=== PATIENT | female | born 1930 ===

== ENCOUNTER 2017-08-19 21:06 | Inpatient (IN) | payer MEDICARE, MEDICAID ==
[2017-08-19 21:06] VITALS: BMI 37.0
--- NOTE | 2017-08-19 22:26 | ED PDOC ---
HPI: Chest Pain Time Seen by Provider: 08/19/17 21:19 Chief Complaint (Nursing): Chest Pain Chief Complaint (Provider): chest pain History Per: Family (niece) History/Exam Limitations: clinical condition (dementia) Onset/Duration Of Symptoms: Days (x4), Intermittent Episodes Current Symptoms Are (Timing): Still Present Additional Complaint(s): 86 year old male with previous medical history of dementia, who presents to the emergency department with niece for an evaluation of pleural effusion seen on CXR by PCP on 08/15/17. Niece stated that patient has been having chest pain and more shortness of breath for 4 days. She also reported that patient had previous pleural effusion in April 2017 in which a thoracostomy was performed. PMD: Martinez Hameed MD Past Medical History Reviewed: Historical Data, Nursing Documentation, Vital Signs Vital Signs: Last Vital Signs Temp 97.7 F 08/24/17 08:17 Pulse 64 08/24/17 08:18 Resp 20 08/24/17 08:17 BP 144/72 08/24/17 08:18 Pulse Ox 98 08/24/17 08:17 - Medical History PMH: Anemia, Arthritis, Asthma, Bronchitis, COPD, Dementia, Depression, Diverticulitis, HTN, Hypercholesterolemia, Osteoporosis, Pneumonia Denies: HIV, Chronic Kidney Disease - Family History Family History: States: Unknown Family Hx - Home Medications Home Medications: Ambulatory Orders Medication Instructions Recorded Losartan Potassium [Cozaar] 100 mg PO DAILY 08/26/16 Memantine HCl [Namenda Xr] 28 mg PO DAILY 08/26/16 Metoprolol Succinate 50 mg PO DAILY 08/26/16 Omeprazole 20 mg PO DAILY 08/26/16 Paroxetine HCl [Paxil] 20 mg PO DAILY 08/26/16 Pravastatin Sodium [Pravachol] 20 mg PO HS 08/26/16 Albuterol/Ipratropium [Duoneb 3 3 ml IH Q4 08/19/17 MG/3 Ml-0.5 MG/3 Ml 3 Ml] Clotrimazole 1% Cream [Lotrimin 1%] 30 mg TOP DAILY 08/19/17 Fluticasone/Salmeterol [Advair 1 puff PO DAILY 08/19/17 250-50 Diskus] Montelukast Sodium [Singulair] 10 mg PO DAILY 08/19/17 Bimatoprost [Lumigan] 1 drop BOTHEYES DAILY 08/20/17 Lactulose [Lactulose] 30 ml PO Q12 08/20/17 Silver Sulfadiazine [Silvadene] 20 mg TOP BID 08/20/17 - Allergies Allergies/Adverse Reactions: Allergies Allergy/AdvReac Type Severity Reaction Status Date / Time No Known Allergies Allergy Verified 04/03/15 20:49 Review of Systems Review Of Systems: ROS cannot be obtained secondary to pt's inabilty to answer questions. (dementia) Cardiovascular: Positive for: Chest Pain Respiratory: Positive for: Shortness of Breath (per niece) Physical Exam - Reviewed Nursing Documentation Reviewed: Yes Vital Signs Reviewed: Yes - Physical Exam Appears: Positive for: Well, Non-toxic, No Acute Distress Head Exam: Positive for: ATRAUMATIC, NORMAL INSPECTION, NORMOCEPHALIC Eye Exam: Positive for: Normal appearance, EOMI, PERRL. Negative for: Nystagmus Cardiovascular/Chest: Positive for: Murmur. Negative for: Regular Rate, Rhythm Respiratory: Positive for: Decreased Breath Sounds. Negative for: Normal Breath Sounds, Respiratory Distress Neurologic/Psych: Positive for: Alert, Oriented - Laboratory Results Result Diagrams: 08/21/17 04:30 08/19/17 22:29 - ECG O2 Sat by Pulse Oximetry: 99 (RA) Pulse Ox Interpretation: Normal - Radiology X-Ray: Read By Radiologist (Accession No. : [id number]) Medical Decision Making Medical Decision Making: Initial Impression: Chest pain; pleural effusion Initial Plan: * EKG * CMP * Troponin I * CBC * PTT * PT * CXR * Urinalysis Scribe Attestation: Documented by Bruna Carlisle, acting as a scribe for Tiara Washington MD. Provider Scribe Attestation: All medical record entries made by the Scribe were at my direction and personally dictated by me. I have reviewed the chart and agree that the record accurately reflects my personal performance of the history, physical exam, medical decision making, and the department course for this patient. I have also personally directed, reviewed, and agree with the discharge instructions and disposition. Disposition - Clinical Impression Clinical Impression: Chest pain, Pleural effusion - Patient ED Disposition Is Patient to be Admitted: Yes - Disposition Disposition Time: 22:58 Condition: STABLE - Pt Status Changed To: Hospital Disposition Of: Inpatient - Admit Certification Admit to Inpatient:: After my assessment, the patient will require hospitalization for at least two midnights. This is because of the severity of symptoms shown, intensity of services needed, and/or the medical risk in this patient being treated as an outpatient. - POA Present On Arrival: None
[2017-08-19 22:32] LABS: BASO % 0.5 % (0.0-2.0); EOS # 0.2 K/uL (0.0-0.7); EOS % 2.6 % (0.0-4.0); HEMOGLOBIN 10.7 g/dL (12.0-16.0); LYMPH # 1.5 K/uL (1.0-4.3); LYMPH % 18.6 % (20.0-40.0); MEAN CELL VOLUME 80.7 fl (81.0-99.0); MEAN CORPUSCULAR HEMOGLOBIN 25.2 pg (27.0-31.0); MEAN CORPUSCULAR HGB CONC 31.2 g/dL (33.0-37.0); MEAN PLATELET VOLUME 8.5 fl (7.2-11.7); MONO # 0.7 K/uL (0.0-0.8); MONO % 8.5 % (0.0-10.0); NEUT # 5.4 K/uL (1.8-7.0); NEUT % 69.8 % (50.0-75.0); RBC 4.26 Mil/uL (3.80-5.20); RED CELL DISTRIBUTION WIDTH 15.4 % (11.5-14.5); WHITE BLOOD COUNT 7.8 K/uL (4.8-10.8)
[2017-08-19 22:42] LABS: INR 1.1 (0.9-1.2); PARTIAL THROMBOPLASTIN TIME 29.7 Seconds (25.6-37.1); PROTHROMBIN TIME 12.3 Seconds (9.8-13.1)
[2017-08-19 22:44] LABS: ALB/GLOB RATIO 1.2 (1.0-2.1); ALBUMIN 3.5 g/dL (3.5-5.0); ALT/SGPT 31 U/L (9-52); AST/SGOT 27 U/L (14-36); BLOOD UREA NITROGEN 19 mg/dl (7-17); CALCIUM 8.7 mg/dL (8.4-10.2); GFR AFRICAN-AMERICAN > 60; GFR NON-AFRICAN AMERICAN > 60
[2017-08-19 23:11] LABS: SQUAMOUS EPITHIAL < 1 /hpf (0-5); URINE BACTERIA RARE (<OCC); URINE BILIRUBIN NEGATIVE (NEGATIVE); URINE BLOOD NEGATIVE (NEGATIVE); URINE CLARITY CLOUDY (Clear); URINE COLOR BLUE (YELLOW); URINE GLUCOSE (UA) NEG (Normal); URINE LEUKOCYTE ESTERASE TRACE Leu/uL (Negative); URINE NITRATE NEGATIVE (NEGATIVE); URINE PROTEIN NEGATIVE (NEGATIVE); URINE UROBILINOGEN 0.2-1.0 mg/dL (0.2-1.0)
[2017-08-20] MEDS ORDERED: Albuterol-Ipratrop 3 mg / 0.5 (3 ml) UD IH PRN (01:00)
[2017-08-20 02:21] LABS: ABG ALLEN TEST YES; ARTERIAL BLOOD GAS HCO3 30.8 mmol/L (21-28); ARTERIAL BLOOD GAS HEMOGLOBIN 10.6 g/dL (11.7-17.4); ARTERIAL BLOOD GAS O2 CAPACITY 14.4 mL/dL (16-24); ARTERIAL BLOOD GAS O2 CONTENT 13.7 ML/dL (15-23); ARTERIAL BLOOD GAS O2 SAT 94.9 % (95-98); ARTERIAL BLOOD GAS PCO2 50 mm/Hg (35-45); ARTERIAL BLOOD GAS PH 7.43 (7.35-7.45); ARTERIAL BLOOD GAS PO2 58 mm/Hg (80-100); ARTERIAL BLOOD GAS TCO2 34.7 mmol/L (22-28)
--- NOTE | 2017-08-20 05:54 | RAD ---
HISTORY: Pleural effusion COMPARISON: 08/15/2017 FINDINGS: LUNGS: Stable consolidative changes right lower lobe PLEURA: Stable right pleural effusion CARDIOVASCULAR: Normal. OSSEOUS STRUCTURES: No significant abnormalities. VISUALIZED UPPER ABDOMEN: Normal. OTHER FINDINGS: None. IMPRESSION: No significant interval change compared to the prior examination(s). Stable partially loculated right pleural effusion and adjacent underlying consolidative change right lower lobe.
[2017-08-20] MEDS ORDERED: Patient's Own Med (Memantine Hcl [Namenda Xr] 28 MG) PO SCH (09:00)
[2017-08-20] MEDS ORDERED: Patient's Own Med (Bimatoprost [Lumigan] 1 DROP) BOTHEYES SCH (09:00)
--- NOTE | 2017-08-20 09:24 | CP.PCM.HP ---
<America Farah - Last Filed: 08/21/17 15:47> History of Present Illness - History of Present Illness History of Present Illness: History taken from ER notes, patient is a poor historian, patient has h/o dementia. This is a 86 year old female with previous medical history of dementia, HTN, HLD , OA, as per ER doctor's note patient presented to the emergency department with niece for an evaluation of pleural effusion seen on CXR by PCP on . Niece stated that patient has been having chest pain and more shortness of breath for 4 days. She also reported that patient had previous pleural effusion in April 2017 in which a "thoracostomy" was performed. PMD: Martinez Hameed MD Present on Admission - Present on Admission Any Indicators Present on Admission: No History of DVT/PE: No History of Uncontrolled Diabetes: No Urinary Catheter: No Decubitus Ulcer Present: No Review of Systems - Review of Systems All systems: reviewed and no additional remarkable complaints except (as per HPI ) Past Patient History - Past Medical History & Family History Past Medical History?: Yes - Past Social History Smoking Status: Never Smoked - CARDIAC Hx Hypercholesterolemia: Yes Hx Hypertension: Yes - PULMONARY Hx Asthma: Yes Hx Bronchitis: Yes Hx Chronic Obstructive Pulmonary Disease (COPD): Yes Hx Pneumonia: Yes - NEUROLOGICAL Hx Dementia: Yes - HEENT Hx HEENT Problems: No - RENAL Hx Chronic Kidney Disease: No - ENDOCRINE/METABOLIC Hx Endocrine Disorders: No - HEMATOLOGICAL/ONCOLOGICAL Hx Anemia: Yes Hx Human Immunodeficiency Virus (HIV): No - INTEGUMENTARY Hx Dermatological Problems: No - MUSCULOSKELETAL/RHEUMATOLOGICAL Hx Arthritis: Yes Hx Osteoporosis: Yes - GASTROINTESTINAL Hx Diverticulitis: Yes - GENITOURINARY/GYNECOLOGICAL Hx Genitourinary Disorders: No - PSYCHIATRIC Hx Depression: Yes - SURGICAL HISTORY Hx Surgeries: Yes Hx Hysterectomy: Yes Other/Comment: Kidney Surgery, Left Hip Replacement, left knee surgery - ANESTHESIA Hx Anesthesia: Yes Hx Anesthesia Reactions: No Hx Malignant Hyperthermia: No Meds Allergies/Adverse Reactions: Allergies Allergy/AdvReac Type Severity Reaction Status Date / Time No Known Allergies Allergy Verified 04/03/15 20:49 Physical Exam - Constitutional Appears: Non-toxic, No Acute Distress - ENT Exam ENT Exam: Mucous Membranes Dry - Respiratory Exam Respiratory Exam: NORMAL BREATHING PATTERN - Cardiovascular Exam Cardiovascular Exam: REGULAR RHYTHM, RRR, +S1, +S2 - GI/Abdominal Exam GI & Abdominal Exam: Normal Bowel Sounds, Soft. absent: Distended, Firm, Guarding, Tenderness - Extremities Exam Extremities exam: Positive for: normal inspection. Negative for: calf tenderness, pedal edema - Neurological Exam Neurological exam: Alert Additional comments: Oriented x 2 , in person and place - Skin Skin Exam: Dry, Intact, Pallor Results - Vital Signs Recent Vital Signs: Last Vital Signs Temp 97.6 F 08/20/17 07:30 Pulse 62 08/20/17 07:30 Resp 14 08/20/17 07:30 BP 158/62 H 08/20/17 07:30 Pulse Ox 96 08/20/17 07:30 - Labs Result Diagrams: 08/21/17 04:30 08/19/17 22:29 Labs: Laboratory Results - last 24 hr 08/19/17 08/19/17 08/19/17 22:29 22:29 22:29 WBC 7.8 RBC 4.26 Hgb 10.7 L Hct 34.4 MCV 80.7 L MCH 25.2 L MCHC 31.2 L RDW 15.4 H Plt Count 172 MPV 8.5 Neut % (Auto) 69.8 Lymph % (Auto) 18.6 L [place] % (Auto) 8.5 Eos % (Auto) 2.6 Baso % (Auto) 0.5 Neut # 5.4 Lymph # 1.5 [place] # 0.7 Eos # 0.2 Baso # 0.0 PT 12.3 INR 1.1 APTT 29.7 pCO2 pO2 HCO3 ABG pH ABG Total CO2 ABG O2 Saturation ABG O2 Content ABG Base Excess ABG Hemoglobin ABG Carboxyhemoglobin POC ABG HHb (Measured) ABG Methemoglobin ABG O2 Capacity Charbel Test A-a O2 Difference Hgb O2 Saturation FiO2 Sodium 139 Potassium 4.4 Chloride 102 Carbon Dioxide 30 Anion Gap 11 BUN 19 H Creatinine 0.7 Est GFR ( Amer) > 60 Est GFR (Non-Af Amer) > 60 Random Glucose 103 Calcium 8.7 Total Bilirubin 0.4 AST 27 ALT 31 Alkaline Phosphatase 80 Troponin I < 0.0120 Total Protein 6.6 Albumin 3.5 Globulin 3.1 Albumin/Globulin Ratio 1.2 Urine Color Urine Clarity Urine pH Ur Specific [place] Urine Protein Urine Glucose (UA) Urine Ketones Urine Blood Urine Nitrate Urine Bilirubin Urine Urobilinogen Ur Leukocyte Esterase Urine RBC (Auto) Urine Microscopic WBC Ur Squamous Epith Cells Urine Bacteria 08/19/17 08/20/17 08/20/17 23:00 02:01 07:30 WBC RBC Hgb Hct MCV MCH MCHC RDW Plt Count MPV Neut % (Auto) Lymph % (Auto) [place] % (Auto) Eos % (Auto) Baso % (Auto) Neut # Lymph # [place] # Eos # Baso # PT INR APTT pCO2 50 H pO2 58 L HCO3 30.8 H ABG pH 7.43 ABG Total CO2 34.7 H ABG O2 Saturation 94.9 L ABG O2 Content 13.7 L ABG Base Excess 7.7 H ABG Hemoglobin 10.6 L ABG Carboxyhemoglobin 2.0 H POC ABG HHb (Measured) 4.9 ABG Methemoglobin 1.2 ABG O2 Capacity 14.4 L Charbel Test Yes A-a O2 Difference 29.0 Hgb O2 Saturation 91.9 L FiO2 21.0 Sodium Potassium Chloride Carbon Dioxide Anion Gap BUN Creatinine Est GFR ( Amer) Est GFR (Non-Af Amer) Random Glucose Calcium Total Bilirubin AST ALT Alkaline Phosphatase Troponin I 0.0130 Total Protein Albumin Globulin Albumin/Globulin Ratio Urine Color Blue Urine Clarity Cloudy Urine pH 5.0 Ur Specific [place] 1.016 Urine Protein Negative Urine Glucose (UA) Neg Urine Ketones Negative Urine Blood Negative Urine Nitrate Negative Urine Bilirubin Negative Urine Urobilinogen 0.2-1.0 Ur Leukocyte Esterase Trace Urine RBC (Auto) 4 H Urine Microscopic WBC 1 Ur Squamous Epith Cells < 1 Urine Bacteria Rare Assessment & Plan - Assessment and Plan (Free Text) Assessment: 85 y/o F with PMH including HTN, Hyperlipidemia, Arthritis, Dementia admitted for chest pain and pleural effusion. Plan: Chest pain -associated with pleura effusion and consolidation of unclear etiology -Telemetry unit -afebrile, no leukocytosis -f/u repeat EKG today -EKG in ER no showed evidence of acute ST-T wave changes -Troponin I x 2 negative -CXR showed stable right pleural effusion, and stable consolidative changes in right lower lobe -Chest CT w/o contrast on 04/04/17 showed moderate sized right pleural effusion and associated consolidation -Pulmonology consulted by ER doctor, Dr. Gamboa, f/u recommendations -IR consult appreciated, Dr. Mejia, for possible toracentesis HTN c/w home meds Microcytic hypocromic anemia Could be multifactorial, iron deficiency and anemia of chronic diseases, but GI bleeding is still in the differential H/H : 10.7/34.4 MCV: 80/low Iron studies FOBT H/o Asthma No in acute exacerbation c/w current home meds Dementia Chronic c/w home meds Unsteady gait Pt evaluation after medically stable DVT prophylaxis Lovenox 40 mg SC daily - Date & Time Date: 08/20/17 Time: 09:00 <Ariel Gaviria - Last Filed: 08/24/17 19:33> Results - Vital Signs Recent Vital Signs: Last Vital Signs Temp 98.9 F 08/24/17 19:25 Pulse 73 08/24/17 19:25 Resp 19 08/24/17 19:25 BP 152/63 H 08/24/17 19:25 Pulse Ox 97 08/24/17 19:25 - Labs Result Diagrams: 08/21/17 04:30 08/19/17 22:29 Assessment & Plan - Assessment and Plan (Free Text) Plan: I was present during evaluation and discussed with Dr Farah re plan of care and treatment. Ariel Gaviira M.D.
[2017-08-20] MEDS ORDERED: Silver Sulfadiazine 1% CREAM (50 gm) ONE (09:46)
[2017-08-20] MEDS: Pantoprazole 40 mg EC Tab PO SCH (09:50)
[2017-08-20] MEDS: Metoprolol Succinate 50 mg XL Tab PO SCH (09:51)
[2017-08-20] MEDS: Latanoprost 0.005% Opht SOUTION OU SCH (09:53)
[2017-08-20] MEDS: Silver Sulfadiazine 1% CREAM (50 gm) TOP SCH ×2 (09:54→16:20)
[2017-08-20] MEDS: Fluticasone-Salmeterol 250-50mcg Diskus INH SCH (09:54)
--- NOTE | 2017-08-20 12:06 | CARD ---
APPROVED REPORT EKG Measurement Heart [id number] <Conclusion> Sinus rhythm with premature atrial complexes Otherwise normal ECG
[2017-08-20] MEDS ORDERED: Influenza Vaccine 18yr & older 0.5 ML/45 MCG SYR IM ONE (13:13)
[2017-08-20] MEDS: Enoxaparin 40 mg Syringe SC SCH (16:18)
[2017-08-20] MEDS: Pravastatin Sodium 20 MG TAB PO SCH (22:18)
[2017-08-21 05:28] LABS: HEMOGLOBIN 10.7 g/dL (12.0-16.0); MEAN CELL VOLUME 80.1 fl (81.0-99.0); MEAN CORPUSCULAR HEMOGLOBIN 25.9 pg (27.0-31.0); MEAN CORPUSCULAR HGB CONC 32.3 g/dL (33.0-37.0); RBC 4.16 Mil/uL (3.80-5.20); RED CELL DISTRIBUTION WIDTH 14.8 % (11.5-14.5); WHITE BLOOD COUNT 6.3 K/uL (4.8-10.8)
[2017-08-21] MEDS: Metoprolol Succinate 50 mg XL Tab PO SCH (09:00)
[2017-08-21] MEDS: Pantoprazole 40 mg EC Tab PO SCH (09:01)
[2017-08-21] MEDS: Latanoprost 0.005% Opht SOUTION OU SCH (09:01)
[2017-08-21] MEDS: Enoxaparin 40 mg Syringe SC SCH (09:01)
[2017-08-21] MEDS: Fluticasone-Salmeterol 250-50mcg Diskus INH SCH (09:33)
[2017-08-21] MEDS: Silver Sulfadiazine 1% CREAM (50 gm) TOP SCH ×2 (09:34→16:51)
--- NOTE | 2017-08-21 10:23 | CP.PCM.PN ---
<America Childers - Last Filed: 08/21/17 17:49> Subjective - Date & Time of Evaluation Date of Evaluation: 08/21/17 Time of Evaluation: 08:05 - Subjective Subjective: Patient seen and examined with attending Dr. Gaviria in telemetry unit this morning. Still c/o SOB, but denies Cp, N/V Afebrile, VS stable WNL Awaiting for diagnostic/therapeutic Thoracentesis US by IR Objective - Vital Signs/Intake and Output Vital Signs (last 24 hours): Temp Pulse Resp BP Pulse Ox 98.4 F 65 18 124/56 L 100 08/21/17 08:00 08/21/17 09:01 08/21/17 08:00 08/21/17 09:01 08/21/17 08:00 - Medications Medications: Current Medications Albuterol/Ipratropium (Duoneb 3 Mg/0.5 Mg (3 Ml) Ud) 3 ml IH RQ4 PRN PRN Reason: Shortness of Breath Clotrimazole (Lotrimin 1% Cream) 1 applic TOP DAILY [facility] Last Admin: 08/21/17 09:33 Dose: 1 applic Enoxaparin Sodium (Lovenox) 40 mg SC DAILY [facility] PRN Reason: Protocol Last Admin: 08/21/17 09:01 Dose: 40 mg Latanoprost (Xalatan Opht) 1 drop OU DAILY [facility] Last Admin: 08/21/17 09:01 Dose: 1 drop Losartan Potassium (Cozaar) 100 mg PO DAILY [facility] Last Admin: 08/21/17 09:01 Dose: 100 mg Memantine (Namenda) 10 mg PO BID [facility] Last Admin: 08/21/17 09:00 Dose: 10 mg Metoprolol Succinate (Toprol Xl) 50 mg PO DAILY [facility] Last Admin: 08/21/17 09:00 Dose: 50 mg Montelukast Sodium (Singulair) 10 mg PO DAILY [facility] Last Admin: 08/21/17 09:00 Dose: 10 mg Pantoprazole Sodium (Protonix Ec Tab) 40 mg PO DAILY [facility] Last Admin: 08/21/17 09:01 Dose: 40 mg Paroxetine HCl (Paxil) 20 mg PO DAILY [facility] Last Admin: 08/21/17 09:00 Dose: 20 mg Pravastatin Sodium (Pravachol) 20 mg PO HS [facility] Last Admin: 08/20/17 22:18 Dose: 20 mg Fluticasone/Salmeterol (Advair Diskus 250/50) 1 puff INH DAILY [facility] Last Admin: 08/21/17 09:33 Dose: 1 puff Silver Sulfadiazine (Silvadene 1% 50 Gm) 1 applic TOP BID [facility] Last Admin: 08/21/17 09:34 Dose: 1 applic - Labs Labs: 08/21/17 04:30 08/19/17 22:29 PT 12.3 Seconds (9.8-13.1) 08/19/17 22:29 INR 1.1 (0.9-1.2) 08/19/17 22:29 APTT 29.7 Seconds (25.6-37.1) 08/19/17 22:29 - Constitutional Appears: Non-toxic, No Acute Distress - ENT Exam ENT Exam: Mucous Membranes Moist - Respiratory Exam Respiratory Exam: Decreased Breath Sounds (right lower lobe), NORMAL BREATHING PATTERN. absent: Rales, Rhonchi, Wheezes, Stridor Additional comments: Clear to auscultation - Cardiovascular Exam Cardiovascular Exam: REGULAR RHYTHM, RRR, +S1, +S2 - GI/Abdominal Exam GI & Abdominal Exam: Soft, Normal Bowel Sounds. absent: Distended, Guarding, Rigid, Tenderness - Extremities Exam Extremities Exam: Normal Inspection. absent: Calf Tenderness, Pedal Edema - Neurological Exam Neurological Exam: Alert, Awake, Oriented x3 - Skin Skin Exam: Dry, Intact, Normal Color Assessment and Plan (1) Pleural effusion Assessment & Plan: associated with consolidation of unclear etiology IR consult appreciated, for possible thoracentesis If Thoracentesis will send pleural fluid for analysis lasix 20 mg IV once f/u BNP, procalcitonin f/u echocardiogram Pulmonology on [facility], Dr. Gamboa, recommendations appreciated Status: Acute (2) Hypertension Assessment & Plan: c/w home meds Status: Chronic (3) Dementia Status: Chronic (4) Chronic asthma Status: Chronic (5) DVT prophylaxis Assessment & Plan: lovenox Status: Acute (6) Chest pain Assessment & Plan: patient has been pain free since admission most likely 2/2 pleural effusion No evidence of acute ST-T wave changes in EKG troponin I x 3 negative Status: Acute <Ariel Gaviria - Last Filed: 08/24/17 19:34> Objective - Vital Signs/Intake and Output Vital Signs (last 24 hours): Temp Pulse Resp BP Pulse Ox 98.9 F 73 19 152/63 H 97 08/24/17 19:25 08/24/17 19:25 08/24/17 19:25 08/24/17 19:25 08/24/17 19:25 Intake and Output: 08/24/17 08/25/17 18:59 06:59 Intake Total 720 Balance 720 - Medications Medications: Current Medications Albuterol/Ipratropium (Duoneb 3 Mg/0.5 Mg (3 Ml) Ud) 3 ml IH RQ4 PRN PRN Reason: Shortness of Breath Clotrimazole (Lotrimin 1%) 1 applic TOP DAILY [facility] Last Admin: 08/24/17 08:16 Dose: 1 applic Enoxaparin Sodium (Lovenox) 40 mg SC DAILY [facility] PRN Reason: Protocol Last Admin: 08/24/17 08:14 Dose: 40 mg Latanoprost (Xalatan Opht) 1 drop OU DAILY [facility] Last Admin: 08/24/17 08:19 Dose: 1 drop Losartan Potassium (Cozaar) 100 mg PO DAILY [facility] Last Admin: 08/24/17 08:17 Dose: 100 mg Memantine (Namenda) 10 mg PO BID [facility] Last Admin: 08/24/17 18:43 Dose: 10 mg Metoprolol Succinate (Toprol Xl) 50 mg PO DAILY [facility] Last Admin: 08/24/17 08:18 Dose: 50 mg Montelukast Sodium (Singulair) 10 mg PO DAILY [facility] Last Admin: 08/24/17 08:18 Dose: 10 mg Nitrofurantoin Macrocrystals (Macrobid) 100 mg PO Q12 [facility] Pantoprazole Sodium (Protonix Ec Tab) 40 mg PO DAILY [facility] Last Admin: 08/24/17 08:18 Dose: 40 mg Paroxetine HCl (Paxil) 20 mg PO DAILY [facility] Last Admin: 08/24/17 08:16 Dose: 20 mg Pravastatin Sodium (Pravachol) 20 mg PO HS [facility] Last Admin: 08/23/17 21:12 Dose: 20 mg Fluticasone/Salmeterol (Advair Diskus 250/50) 1 puff INH DAILY [facility] Last Admin: 08/24/17 08:14 Dose: 1 puff - Labs Labs: 08/21/17 04:30 08/19/17 22:29 PT 12.3 Seconds (9.8-13.1) 08/19/17 22:29 INR 1.1 (0.9-1.2) 08/19/17 22:29 APTT 29.7 Seconds (25.6-37.1) 08/19/17 22:29 Assessment and Plan - Assessment and Plan (Free Text) Plan: I was present during evaluation and discussed with Dr childers re plans of care. Ariel Gaviria M.D.
--- NOTE | 2017-08-21 12:38 | CARD ---
APPROVED REPORT EXAM: Two-dimensional and M-mode echocardiogram with Doppler and color Doppler. Other Information Quality : AverageRhythm : NSR INDICATION Pleural Effusion 2D DIMENSIONS IVSd1.01 (0.7-1.1cm)LVDd3.08 (3.9-5.9cm) LVOT Diameter1.64 (1.8-2.4cm)PWd1.13 (0.7-1.1cm) IVSs1.29 (0.8-1.2cm)LVDs1.76 (2.5-4.0cm) FS (%) 42.9 %PWs1.49 (0.8-1.2cm) M-Mode DIMENSIONS Left Atrium (MM)4.21 (2.5-4.0cm)Aortic Root3.06 (2.2-3.7cm) Aortic Cusp Exc.1.71 (1.5-2.0cm) Mitral Valve MV E Oicpxmbz381.9cm/sMV DECEL [id number] A Blhswcnz438.0cm/s MV XMC96rvY/A ratio1.1MVA (PHT)3.52cm2 TDI Lateral E' Peak V3.91cm/sMedial E' Peak V5.70cm/sE/Lateral E'32.2 E/Medial E'22.1 LEFT VENTRICLE The left ventricle is normal in size. There is normal left ventricular wall thickness. The left ventricular function is normal. The left ventricular ejection fraction is - 70%. There is normal LV segmental wall motion. Transmitral Doppler flow pattern is Grade I-abnormal relaxation pattern. No left ventricle thrombus noted on this study. There is no ventricular septal defect visualized. There is no left ventricular aneurysm. There is no mass noted in the left ventricle. Chordal calcification could be kishore in the left ventricle. RIGHT VENTRICLE The right ventricle is normal size. There is normal right ventricular wall thickness. The right ventricular systolic function is normal. ATRIA The left atrium is mildly dilated. There is no thrombus suspected in the left atrium. The right atrium size is normal. The interatrial septum is intact with no evidence for an atrial septal defect. AORTIC VALVE The aortic valve is normal in structure. No aortic regurgitation is present. There is no aortic valvular stenosis. MITRAL VALVE Mitral annular calcification is mild. The mitral valve leaflets are normal. There is no evidence of mitral valve prolapse. There is no mitral valve stenosis. Mitral regurgitation is moderate. TRICUSPID VALVE The tricuspid valve is normal in structure. There is no tricuspid valve regurgitation noted. There is no tricuspid valve prolapse or vegetation. There is no tricuspid valve stenosis. PULMONIC VALVE The pulmonary valve is normal in structure. Doppler studies of the PV were not performed. GREAT VESSELS The aortic root is normal in size. The IVC is normal in size and collapses >50% with inspiration. PERICARDIAL EFFUSION Himanshu is a small anterior pericardial effusion. There is a small pleural effusion seen on the 2D subxiphoid views. <Conclusion> The left ventricle is normal in size and wall thickness. The left ventricular function is normal. The left ventricular ejection fraction is - 70%. The left atrium is mildly dilated. The mitral, aortic and tricuspid valves are normal. There is moderate mitral regurgitation. There is a small anterior pericardial effusion. There is a small pleural effusion.
--- NOTE | 2017-08-21 13:48 | CP.PCM.CON ---
History of Present Illness - History of Present Illness History of Present Illness: This 86-year-old French speaking female with a history of dementia and chronic asthma presented to the emergency room for evaluation of a pleural effusion seen on chest x-ray. The patient was allegedly having chest pain and increased shortness of breath for approximately 4 days prior to presentation. She has had a pleural effusion on the same side (right) in the past and has undergone thoracostomy drainage. Family members at bedside with a history of increasing cough with sputum production and chills. The patient has dementia and is unable to answer any of these questions reliably. There was also mention of chest pain in the emergency department but cardiac enzymes have been negative. Past medical history: Long-standing history of chronic obstructive asthma, comorbidities include prior pneumonia, mastoiditis, degenerative joint disease, hypertension, depression, hyperlipidemia, gastroesophageal reflux disease. Family history: Coronary artery disease, hyperlipidemia, diabetes mellitus. Social history: She is a nonsmoker and nondrinker. 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 Allergies: Penicillin. No known seasonal allergies. Past Patient History - Past Medical History & Family History Past Medical History?: Yes Pertinent Family History: CAD, hyperlipidemia, DM - Past Social History Smoking Status: Never Smoked Chewing Tobacco Use: No Cigar Use: No Alcohol: None Drugs: Denies - CARDIAC Hx Cardiac Disorders: Yes Hx Hypercholesterolemia: Yes Hx Hypertension: Yes - PULMONARY Hx Asthma: Yes Hx Bronchitis: Yes Hx Chronic Obstructive Pulmonary Disease (COPD): Yes Hx Pneumonia: Yes Hx Tuberculosis: No - NEUROLOGICAL Hx Dementia: Yes - HEENT Hx HEENT Problems: No - RENAL Other/Comment: kidney surgery - ENDOCRINE/METABOLIC Hx Endocrine Disorders: No - HEMATOLOGICAL/ONCOLOGICAL Hx Anemia: Yes Hx Cancer: Yes Hx Human Immunodeficiency Virus (HIV): No - INTEGUMENTARY Hx Dermatological Problems: No - MUSCULOSKELETAL/RHEUMATOLOGICAL Hx Arthritis: Yes Hx Osteoarthritis: Yes Hx Osteoporosis: Yes Hx Unsteady Gait: Yes - GASTROINTESTINAL Hx Diverticulitis: Yes - GENITOURINARY/GYNECOLOGICAL Hx Genitourinary Disorders: No - PSYCHIATRIC Hx Depression: Yes - SURGICAL HISTORY Hx Surgeries: Yes Hx Hysterectomy: Yes Hx Orthopedic Surgery: Yes Other/Comment: Kidney Surgery, Left Hip Replacement, left knee surgery - ANESTHESIA Hx Anesthesia: Yes Hx Anesthesia Reactions: No Hx Malignant Hyperthermia: No Has any member of the family had a problem w/ anesthesia?: No Meds Allergies/Adverse Reactions: Allergies Allergy/AdvReac Type Severity Reaction Status Date / Time No Known Allergies Allergy Verified 04/03/15 20:49 - Medications Medications: Current Medications Albuterol/Ipratropium (Duoneb 3 Mg/0.5 Mg (3 Ml) Ud) 3 ml IH RQ4 PRN PRN Reason: Shortness of Breath Clotrimazole (Lotrimin 1% Cream) 1 applic TOP DAILY [facility] Last Admin: 08/21/17 09:33 Dose: 1 applic Enoxaparin Sodium (Lovenox) 40 mg SC DAILY [facility] PRN Reason: Protocol Last Admin: 08/21/17 09:01 Dose: 40 mg Latanoprost (Xalatan Opht) 1 drop OU DAILY [facility] Last Admin: 08/21/17 09:01 Dose: 1 drop Losartan Potassium (Cozaar) 100 mg PO DAILY [facility] Last Admin: 08/21/17 09:01 Dose: 100 mg Memantine (Namenda) 10 mg PO BID [facility] Last Admin: 08/21/17 09:00 Dose: 10 mg Metoprolol Succinate (Toprol Xl) 50 mg PO DAILY [facility] Last Admin: 08/21/17 09:00 Dose: 50 mg Montelukast Sodium (Singulair) 10 mg PO DAILY [facility] Last Admin: 08/21/17 09:00 Dose: 10 mg Pantoprazole Sodium (Protonix Ec Tab) 40 mg PO DAILY [facility] Last Admin: 08/21/17 09:01 Dose: 40 mg Paroxetine HCl (Paxil) 20 mg PO DAILY [facility] Last Admin: 08/21/17 09:00 Dose: 20 mg Pravastatin Sodium (Pravachol) 20 mg PO HS [facility] Last Admin: 08/20/17 22:18 Dose: 20 mg Fluticasone/Salmeterol (Advair Diskus 250/50) 1 puff INH DAILY [facility] Last Admin: 08/21/17 09:33 Dose: 1 puff Silver Sulfadiazine (Silvadene 1% 50 Gm) 1 applic TOP BID [facility] Last Admin: 08/21/17 09:34 Dose: 1 applic Physical Exam - Additional Findings Additional findings: Lying in bed in no acute distress. Voice is slightly hoarse. Pharynx is injected and mucous membranes are moist. No exudate. Neck is supple and the trachea is midline. Carotids equal no bruit is appreciated. No neck vein distention. Mild cushingoid facies noted. EACs are patent and the right TM appears scarred. No exudate in the canal is noted. Left TM is opacified. Nasal passages are clear bilaterally. No bleeding or exudate. Chest: Dullness to percussion at the right base posteriorly. Lungs: Breath sounds are diminished bilaterally and absent in the right base. Occasional expiratory wheezes are heard scattered throughout both lungs. No bronchial breathing. Heart: Regular with distant heart sounds noted. No murmur was appreciated. Abdomen: Soft, non-tender, normal bowel sounds. Trace dependent edema noted both lower extremities, no cyanosis, no calf tenderness or palpable venous cords. Results - Vital Signs Recent Vital Signs: Last Vital Signs Temp 98.1 F 08/21/17 12:29 Pulse 60 08/21/17 12:29 Resp 18 08/21/17 12:29 BP 146/72 08/21/17 12:29 Pulse Ox 98 08/21/17 12:29 - Labs Result Diagrams: 08/21/17 04:30 08/19/17 22:29 Labs: Laboratory Results - last 24 hr 08/20/17 08/21/17 08/21/17 14:40 04:30 12:28 WBC 6.3 RBC 4.16 Hgb 10.7 L Hct 33.3 L MCV 80.1 L MCH 25.9 L MCHC 32.3 L RDW 14.8 H Plt Count 179 Troponin I < 0.0120 NT-Pro-B Natriuret Pep 1940 H Assessment & Plan (1) Pleural effusion Status: Acute Priority: High (2) Chronic asthma Status: Chronic Priority: High (3) Dementia Status: Chronic Priority: High - Assessment and Plan (Free Text) Plan: Suggest thoracentesis with fluid testing. May require CT chest afterwards to evaluate RLL parenchyma. Continue present medical regimen. - Date & Time Date: 08/21/17 Time: 13:46
[2017-08-21] MEDS ORDERED: Lidocaine 1% Inj (20ml) ONE (14:01)
--- NOTE | 2017-08-21 14:24 | PCM.SURG1 ---
Surgeon's Initial Post Op Note - Surgeon's Notes Surgeon: Gigi Mejia MD Finishing Department Supervisor: NONE Type of Anesthesia: Local Pre-Operative Diagnosis: Right pleural effusion Operative Findings: US showed a moderate right effusion Post-Operative Diagnosis: Right pleural effusion Operation Performed: US guided right thoracentesis. Specimen/Specimens Removed: 600 cc of straw colored fluid Estimated Blood Loss: EBL {In ML}: 0 Blood Products Given: N/A Drains Used: No Drains Post-Op Condition: Fair Date of Surgery/Procedure: 08/21/17 Time of Surgery/Procedure: 14:05
--- NOTE | 2017-08-21 15:09 | RAD ---
PROCEDURE: CHEST RADIOGRAPH, 1 VIEW HISTORY: Status post right thoracentesis COMPARISON: 08/19/2017 FINDINGS: LUNGS: Limited examination. Markedly oblique. PLEURA: Probable small right pleural effusion. CARDIOVASCULAR: Normal. OSSEOUS STRUCTURES: No significant abnormalities. VISUALIZED UPPER ABDOMEN: Normal. OTHER FINDINGS: None. IMPRESSION: No evidence of pneumothorax. Small right pleural effusion.
[2017-08-21 15:13] LABS: BODY FLUID TYPE PLEURAL/THORACENTESI
[2017-08-21 16:06] LABS: BF GROSS APPEARANCE SL CLOUDY (CLEAR)
[2017-08-21 16:07] LABS: BODY FLUID MONO/MACROPHAGE 9 % (0-0); BODY FLUID TOTAL COUNT 100 (0-0)
[2017-08-21 16:44] LABS: AMYLASE,BODY FLUID < 30 mg/dL (NONE ESTABLISHED); GLUCOSE,BODY FLUID 99 mg/dL (NONE ESTABLISHED); TOTAL PROTEIN,BODY FLUID 3.1 g/dL (NONE ESTABLISHED)
[2017-08-21] MEDS: Pravastatin Sodium 20 MG TAB PO SCH (21:16)
[2017-08-22] MEDS: Fluticasone-Salmeterol 250-50mcg Diskus INH SCH (09:21)
[2017-08-22] MEDS: Enoxaparin 40 mg Syringe SC SCH (09:25)
[2017-08-22] MEDS: Pantoprazole 40 mg EC Tab PO SCH (09:27)
[2017-08-22] MEDS: Silver Sulfadiazine 1% CREAM (50 gm) TOP SCH ×2 (09:29→09:53)
[2017-08-22] MEDS: Metoprolol Succinate 50 mg XL Tab PO SCH (09:30)
[2017-08-22] MEDS: Latanoprost 0.005% Opht SOUTION OU SCH (09:30)
--- NOTE | 2017-08-22 09:33 | CP.PCM.PN ---
Subjective - Date & Time of Evaluation Date of Evaluation: 08/22/17 Time of Evaluation: 09:33 - Subjective Subjective: Pleural fluid transudate by both protein and LDH. Poor technique on post-thoracentesis chest x-ray limits interpretation, but it looks okay with residual fluid still noted (vs pleural thickening). A CT of the chest will be needed for better visualization (no contrast). Awaiting culture and cytology. Continue present medical regimen. Objective - Vital Signs/Intake and Output Vital Signs (last 24 hours): Temp Pulse Resp BP Pulse Ox 98.4 F 64 20 128/62 100 08/22/17 08:00 08/22/17 09:30 08/22/17 08:00 08/22/17 09:30 08/22/17 08:00 - Medications Medications: Current Medications Albuterol/Ipratropium (Duoneb 3 Mg/0.5 Mg (3 Ml) Ud) 3 ml IH RQ4 PRN PRN Reason: Shortness of Breath Clotrimazole (Lotrimin 1% Cream) 1 applic TOP DAILY [facility] Last Admin: 08/21/17 09:33 Dose: 1 applic Enoxaparin Sodium (Lovenox) 40 mg SC DAILY [facility] PRN Reason: Protocol Last Admin: 08/22/17 09:25 Dose: 40 mg Latanoprost (Xalatan Opht) 1 drop OU DAILY [facility] Last Admin: 08/22/17 09:30 Dose: 1 drop Losartan Potassium (Cozaar) 100 mg PO DAILY [facility] Last Admin: 08/22/17 09:22 Dose: 100 mg Memantine (Namenda) 10 mg PO BID [facility] Last Admin: 08/22/17 09:27 Dose: 10 mg Metoprolol Succinate (Toprol Xl) 50 mg PO DAILY [facility] Last Admin: 08/22/17 09:30 Dose: 50 mg Montelukast Sodium (Singulair) 10 mg PO DAILY [facility] Last Admin: 08/22/17 09:30 Dose: 10 mg Pantoprazole Sodium (Protonix Ec Tab) 40 mg PO DAILY [facility] Last Admin: 08/22/17 09:27 Dose: 40 mg Paroxetine HCl (Paxil) 20 mg PO DAILY [facility] Last Admin: 08/22/17 09:27 Dose: 20 mg Pravastatin Sodium (Pravachol) 20 mg PO HS [facility] Last Admin: 08/21/17 21:16 Dose: 20 mg Fluticasone/Salmeterol (Advair Diskus 250/50) 1 puff INH DAILY [facility] Last Admin: 08/22/17 09:21 Dose: 1 puff Silver Sulfadiazine (Silvadene 1% 50 Gm) 1 applic TOP BID [facility] Last Admin: 08/22/17 09:29 Dose: 1 applic - Labs Labs: 08/21/17 04:30 08/19/17 22:29 PT 12.3 Seconds (9.8-13.1) 08/19/17 22:29 INR 1.1 (0.9-1.2) 08/19/17 22:29 APTT 29.7 Seconds (25.6-37.1) 08/19/17 22:29 Assessment and Plan (1) Pleural effusion Status: Acute (2) Chronic asthma Status: Chronic (3) Dementia Status: Chronic
--- NOTE | 2017-08-22 09:54 | CP.PCM.PN ---
<America Farah - Last Filed: 08/22/17 14:09> Subjective - Date & Time of Evaluation Date of Evaluation: 08/22/17 Time of Evaluation: 08:10 - Subjective Subjective: Patient seen and examined in telemetry unit this morning. Patient seen alert, awake, and in her baseline mental status. Reports feeling less SOB today, and denies Cp. s/p US guided Thoracentesis on 08/21/17. As per report, was removed 600 cc of straw colored fluid, and was sent for analysis. Awaiting for results. Afebrile, slightly tachy, but resolved after morning dose of Metoprolol Succ. No events overnight Objective - Vital Signs/Intake and Output Vital Signs (last 24 hours): Temp Pulse Resp BP Pulse Ox 98.4 F 64 20 128/62 100 08/22/17 08:00 08/22/17 09:30 08/22/17 08:00 08/22/17 09:30 08/22/17 08:00 - Medications Medications: Current Medications Albuterol/Ipratropium (Duoneb 3 Mg/0.5 Mg (3 Ml) Ud) 3 ml IH RQ4 PRN PRN Reason: Shortness of Breath Clotrimazole (Lotrimin 1% Cream) 1 applic TOP DAILY [facility] Last Admin: 08/21/17 09:33 Dose: 1 applic Enoxaparin Sodium (Lovenox) 40 mg SC DAILY [facility] PRN Reason: Protocol Last Admin: 08/22/17 09:25 Dose: 40 mg Latanoprost (Xalatan Opht) 1 drop OU DAILY [facility] Last Admin: 08/22/17 09:30 Dose: 1 drop Losartan Potassium (Cozaar) 100 mg PO DAILY [facility] Last Admin: 08/22/17 09:22 Dose: 100 mg Memantine (Namenda) 10 mg PO BID [facility] Last Admin: 08/22/17 09:27 Dose: 10 mg Metoprolol Succinate (Toprol Xl) 50 mg PO DAILY [facility] Last Admin: 08/22/17 09:30 Dose: 50 mg Montelukast Sodium (Singulair) 10 mg PO DAILY [facility] Last Admin: 08/22/17 09:30 Dose: 10 mg Pantoprazole Sodium (Protonix Ec Tab) 40 mg PO DAILY [facility] Last Admin: 12/08/17 09:27 Dose: 40 mg Paroxetine HCl (Paxil) 20 mg PO DAILY [facility] Last Admin: 08/22/17 09:27 Dose: 20 mg Pravastatin Sodium (Pravachol) 20 mg PO HS [facility] Last Admin: 08/21/17 21:16 Dose: 20 mg Fluticasone/Salmeterol (Advair Diskus 250/50) 1 puff INH DAILY [facility] Last Admin: 08/22/17 09:21 Dose: 1 puff Silver Sulfadiazine (Silvadene 1% 50 Gm) 1 applic TOP BID [facility] Last Admin: 08/22/17 09:29 Dose: 1 applic - Labs Labs: 08/21/17 04:30 08/19/17 22:29 PT 12.3 Seconds (9.8-13.1) 08/19/17 22:29 INR 1.1 (0.9-1.2) 08/19/17 22:29 APTT 29.7 Seconds (25.6-37.1) 08/19/17 22:29 - Constitutional Appears: Non-toxic, No Acute Distress - ENT Exam ENT Exam: Mucous Membranes Moist - Respiratory Exam Respiratory Exam: Rales (right lower lobe, CTA of left lung field), NORMAL BREATHING PATTERN - Cardiovascular Exam Cardiovascular Exam: REGULAR RHYTHM, RRR, +S1, +S2 - GI/Abdominal Exam GI & Abdominal Exam: Soft, Normal Bowel Sounds. absent: Guarding, Rigid, Tenderness - Neurological Exam Neurological Exam: Alert, Awake - Skin Skin Exam: Dry, Intact, Normal Color Assessment and Plan (1) Pleural effusion Assessment & Plan: s/p US guided Thoracentesis on 08/21/17. As per report, was removed 600 cc of straw colored fluid, and was sent for analysis. Awaiting for results. Discussed caase with Pulmonology, Dr. Gamboa, will do Chest CT w/o contrast. Pleural effusion so far looks like transudate, but still waiting for results. Patient is not a good candidate for Bronchoscopy. Pleural effusion could be 2/2 local obstruction. F/U Chest CT Status: Acute (2) Hypertension Status: Chronic (3) Dementia Status: Chronic (4) Chronic asthma Status: Chronic (5) DVT prophylaxis Assessment & Plan: lovenox Status: Acute <Ariel Gaviria - Last Filed: 08/24/17 19:35> Objective - Vital Signs/Intake and Output Vital Signs (last 24 hours): Temp Pulse Resp BP Pulse Ox 98.9 F 73 19 152/63 H 97 08/24/17 19:25 08/24/17 19:25 08/24/17 19:25 08/24/17 19:25 08/24/17 19:25 Intake and Output: 08/24/17 08/25/17 18:59 06:59 Intake Total 720 Balance 720 - Medications Medications: Current Medications Albuterol/Ipratropium (Duoneb 3 Mg/0.5 Mg (3 Ml) Ud) 3 ml IH RQ4 PRN PRN Reason: Shortness of Breath Clotrimazole (Lotrimin 1%) 1 applic TOP DAILY [facility] Last Admin: 08/24/17 08:16 Dose: 1 applic Enoxaparin Sodium (Lovenox) 40 mg SC DAILY [facility] PRN Reason: Protocol Last Admin: 08/24/17 08:14 Dose: 40 mg Latanoprost (Xalatan Opht) 1 drop OU DAILY [facility] Last Admin: 08/24/17 08:19 Dose: 1 drop Losartan Potassium (Cozaar) 100 mg PO DAILY [facility] Last Admin: 08/24/17 08:17 Dose: 100 mg Memantine (Namenda) 10 mg PO BID [facility] Last Admin: 08/24/17 18:43 Dose: 10 mg Metoprolol Succinate (Toprol Xl) 50 mg PO DAILY [facility] Last Admin: 08/24/17 08:18 Dose: 50 mg Montelukast Sodium (Singulair) 10 mg PO DAILY [facility] Last Admin: 08/24/17 08:18 Dose: 10 mg Nitrofurantoin Macrocrystals (Macrobid) 100 mg PO Q12 [facility] Pantoprazole Sodium (Protonix Ec Tab) 40 mg PO DAILY [facility] Last Admin: 08/24/17 08:18 Dose: 40 mg Paroxetine HCl (Paxil) 20 mg PO DAILY [facility] Last Admin: 08/24/17 08:16 Dose: 20 mg Pravastatin Sodium (Pravachol) 20 mg PO HS [facility] Last Admin: 08/23/17 21:12 Dose: 20 mg Fluticasone/Salmeterol (Advair Diskus 250/50) 1 puff INH DAILY [facility] Last Admin: 08/24/17 08:14 Dose: 1 puff - Labs Labs: 08/21/17 04:30 08/19/17 22:29 PT 12.3 Seconds (9.8-13.1) 08/19/17 22:29 INR 1.1 (0.9-1.2) 08/19/17 22:29 APTT 29.7 Seconds (25.6-37.1) 08/19/17 22:29 Assessment and Plan - Assessment and Plan (Free Text) Plan: I was present during evaluation and discussed with Dr Farah re plans of care and treatment. Ariel Gaviria M.D.
--- NOTE | 2017-08-22 10:05 | PQF GENQUE ---
This form is a permanent part of the medical record 08/22/17 Dr. Gamboa, Would you please clarify the type of asthma if known. If unable to determine would you please document. Documentation of a history of Asthma Chronic Obstructive. Being admitted for pleural effusion etiology unknown at this time. Clarification of your documentation is requested to better reflect the severity of illness and intensity of treatment of your patient. Indicators present [] Specify: [] [] Specify: [] [] Specify: [] [] Specify: [] Location in the medical record that reflects the above clinical findings: [] Treatment Provided: [] PHYSICIAN'S RESPONSE Type of Asthma [] Childhood [] Cough variant [] Exercise induced [] Late onset [] Mild intermittent [] Mild persistent [] Moderate persistent [] Severe persistent [] Other (please specify) [] Clinically unable to determine [] Unknown Based on your medical judgment of the clinical indicators outlined above please clarify the following: [] Practitioner response [] If unable to determine, please check the box, sign and date. Present On Admission (POA) Indicator: [] Present at the time of admission [] Not present at the time of admission [] Clinically Undetermined In responding to this query, please exercise your independent professional judgment. The fact that a question is asked does not imply that any particular answer is desired or expected. Thank you for your clarification on this documentation. If you have any questions please call:ext [phone] * Thank you, Renetta Casey RN CDMP MTDD
--- NOTE | 2017-08-22 12:52 | US ---
PROCEDURE: Date of procedure: 08/21/2017 Procedure: 1. Ultrasound-guided Right thoracentesis, CPT 77888 Medications: 7cc 1% Lidocaine HISTORY: Right pleural effusion, shortness of breath TECHNIQUE: Following informed consent ,the Patients' right chest was marked. Procedure time-out was called, and the patient was placed in the sitting position and limited ultrasound showed a large right effusion. The patient's right back was prepped and draped in the usual sterile fashion. After the skin was anesthetized with lidocaine, a drainage catheter was advanced under ultrasound guidance into the pleural space. Ultrasound-guided thoracentesis was performed. A total of 600 cubic centimeters of straw-colored fluid removed without complication. A Xeroform dressing was applied. IMPRESSION: Ultrasound guided Right thoracentesis. There were no immediate complications.
--- NOTE | 2017-08-22 16:39 | CT ---
PROCEDURE: CT scan of the chest dated 04/04/2017. HISTORY: Recurrent pleural effusion w/consolidation COMPARISON: Comparison made with CT scan of the chest dated 04/04/2017 TECHNIQUE: Contiguous helical/transaxial images were obtained through the chest without intravenous contrast enhancement. Sagittal and coronal reconstructions were performed. Radiation dose (DLP): 418.42 mGy-cm. This CT exam was performed using one or more of the following dose reduction techniques: Automated exposure control, adjustment of the mA and/or kV according to patient size, and/or use of iterative reconstruction technique. FINDINGS: LUNGS: Current study reveals right-sided effusion and mild right basilar atelectasis. There may be a small calcified granuloma within the atelectatic lung. In addition, there are some mild chronic appearing scarring changes in the right lung base, middle lobe and lingular regions. . . Fine reticular nodular densities are present. Findings may represent mild chronic compensated pulmonary edema/CHF. . There may be some minor pleural thickening in the posterior upper lung zone with more discrete tiny nodular density pleural-based nodular density measuring approximately 7 mm. There is a tiny approximately 2 mm nodular density lung field ; 2nd slightly more inferiorly located nodule measuring 2.25 mm nodule and a 3rd measuring approximately 3.6 mm nodule of which are located in the left upper lobe though appears relatively stable compared with prior CT scan. MEDIASTINUM: Heart appears mildly enlarged. No significant pericardial effusion. Ascending thoracic aorta measures approximately 3.05 cm and descending thoracic aorta measures approximately 2.3 cm. Pulmonary trunk measures approximately 3.0 cm. The central airways are midline and patent. No central antral luminal lesions. Multiple small nonspecific mediastinal lymph nodes are present. Evaluation for hilar adenopathy is limited due to the lack of circulating intravenous contrast material. There is a small hiatal hernia with slight wall thickening of the distal esophagus likely due to protrusion of gastric mucosa. Possibility of esophagitis or other intrinsic/invasive wall lesion not excluded. Clinical correlation recommended. PLEURA: As above. No evidence of pneumothorax. BONES: Mild multilevel degenerative spondylosis of the thoracic spine. UPPER ABDOMEN: Visualized upper abdominal structures appear grossly unremarkable. OTHER FINDINGS: None. IMPRESSION: Moderately large right-sided effusion with mild right basilar atelectasis. . Probable small calcified granuloma right lower lung field within atelectatic lung. Fine reticular interstitial densities; rule out mild chronic compensated pulmonary edema/ CHF. Several small nodules left upper lobe ; follow-up study but though these small nodules appear relatively stable. Cardiomegaly.
[2017-08-22] MEDS: Pravastatin Sodium 20 MG TAB PO SCH (21:24)
[2017-08-23] MEDS: Fluticasone-Salmeterol 250-50mcg Diskus INH SCH (08:29)
[2017-08-23] MEDS: Enoxaparin 40 mg Syringe SC SCH (08:30)
[2017-08-23] MEDS: Pantoprazole 40 mg EC Tab PO SCH (08:31)
[2017-08-23] MEDS: Metoprolol Succinate 50 mg XL Tab PO SCH (08:32)
[2017-08-23] MEDS: Latanoprost 0.005% Opht SOUTION OU SCH (08:33)
[2017-08-23] MEDS: Pravastatin Sodium 20 MG TAB PO SCH (21:12)
[2017-08-24] MEDS: Enoxaparin 40 mg Syringe SC SCH (08:14)
[2017-08-24] MEDS: Fluticasone-Salmeterol 250-50mcg Diskus INH SCH (08:14)
[2017-08-24] MEDS: Pantoprazole 40 mg EC Tab PO SCH (08:18)
[2017-08-24] MEDS: Metoprolol Succinate 50 mg XL Tab PO SCH (08:18)
[2017-08-24] MEDS: Latanoprost 0.005% Opht SOUTION OU SCH (08:19)
--- NOTE | 2017-08-24 19:38 | CP.PCM.PN ---
Subjective - Date & Time of Evaluation Date of Evaluation: 08/23/17 Time of Evaluation: 10:00 - Subjective Subjective: Patient is stable Has no chest pain or SOB Afebrile. Objective - Vital Signs/Intake and Output Vital Signs (last 24 hours): Temp Pulse Resp BP Pulse Ox 98.9 F 73 19 152/63 H 97 08/24/17 19:25 08/24/17 19:25 08/24/17 19:25 08/24/17 19:25 08/24/17 19:25 Intake and Output: 08/24/17 08/25/17 18:59 06:59 Intake Total 720 Balance 720 - Medications Medications: Current Medications Albuterol/Ipratropium (Duoneb 3 Mg/0.5 Mg (3 Ml) Ud) 3 ml IH RQ4 PRN PRN Reason: Shortness of Breath Clotrimazole (Lotrimin 1%) 1 applic TOP DAILY [facility] Last Admin: 08/24/17 08:16 Dose: 1 applic Enoxaparin Sodium (Lovenox) 40 mg SC DAILY [facility] PRN Reason: Protocol Last Admin: 08/24/17 08:14 Dose: 40 mg Latanoprost (Xalatan Opht) 1 drop OU DAILY [facility] Last Admin: 08/24/17 08:19 Dose: 1 drop Losartan Potassium (Cozaar) 100 mg PO DAILY [facility] Last Admin: 08/24/17 08:17 Dose: 100 mg Memantine (Namenda) 10 mg PO BID [facility] Last Admin: 08/24/17 18:43 Dose: 10 mg Metoprolol Succinate (Toprol Xl) 50 mg PO DAILY [facility] Last Admin: 08/24/17 08:18 Dose: 50 mg Montelukast Sodium (Singulair) 10 mg PO DAILY [facility] Last Admin: 08/24/17 08:18 Dose: 10 mg Nitrofurantoin Macrocrystals (Macrobid) 100 mg PO Q12 [facility] Pantoprazole Sodium (Protonix Ec Tab) 40 mg PO DAILY [facility] Last Admin: 08/24/17 08:18 Dose: 40 mg Paroxetine HCl (Paxil) 20 mg PO DAILY [facility] Last Admin: 08/24/17 08:16 Dose: 20 mg Pravastatin Sodium (Pravachol) 20 mg PO HS [facility] Last Admin: 08/23/17 21:12 Dose: 20 mg Fluticasone/Salmeterol (Advair Diskus 250/50) 1 puff INH DAILY [facility] Last Admin: 08/24/17 08:14 Dose: 1 puff - Labs Labs: 08/21/17 04:30 08/19/17 22:29 PT 12.3 Seconds (9.8-13.1) 08/19/17 22:29 INR 1.1 (0.9-1.2) 08/19/17 22:29 APTT 29.7 Seconds (25.6-37.1) 08/19/17 22:29 - Head Exam Head Exam: NORMAL INSPECTION - Eye Exam Eye Exam: Normal appearance - ENT Exam ENT Exam: Mucous Membranes Moist - Respiratory Exam Respiratory Exam: Rales - Cardiovascular Exam Cardiovascular Exam: REGULAR RHYTHM - GI/Abdominal Exam GI & Abdominal Exam: Normal Bowel Sounds - Neurological Exam Neurological Exam: Altered, Awake - Skin Additional comments: pustular n erythematous Has no fever Has no chest pain or SOB. scattered lesions on the lower back area Assessment and Plan (1) COPD (chronic obstructive pulmonary disease) Status: Acute (2) Hyperlipidemia Status: Chronic (3) Hypertension Status: Chronic (4) Osteoarthritis Status: Chronic (5) Pleural effusion Status: Acute - Assessment and Plan (Free Text) Plan: Con tmeds cont tx check probnp cont meds.
--- NOTE | 2017-08-24 19:47 | CP.PCM.PN ---
Subjective - Date & Time of Evaluation Date of Evaluation: 08/24/17 Time of Evaluation: 11:00 - Subjective Subjective: Patient remains stable Has no chest pain or SOB Afebrile. Objective - Vital Signs/Intake and Output Vital Signs (last 24 hours): Temp Pulse Resp BP Pulse Ox 98.9 F 73 19 152/63 H 97 08/24/17 19:25 08/24/17 19:25 08/24/17 19:25 08/24/17 19:25 08/24/17 19:25 Intake and Output: 08/24/17 08/25/17 18:59 06:59 Intake Total 720 Balance 720 - Medications Medications: Current Medications Albuterol/Ipratropium (Duoneb 3 Mg/0.5 Mg (3 Ml) Ud) 3 ml IH RQ4 PRN PRN Reason: Shortness of Breath Clotrimazole (Lotrimin 1%) 1 applic TOP DAILY [facility] Last Admin: 08/24/17 08:16 Dose: 1 applic Enoxaparin Sodium (Lovenox) 40 mg SC DAILY [facility] PRN Reason: Protocol Last Admin: 08/24/17 08:14 Dose: 40 mg Latanoprost (Xalatan Opht) 1 drop OU DAILY [facility] Last Admin: 08/24/17 08:19 Dose: 1 drop Losartan Potassium (Cozaar) 100 mg PO DAILY [facility] Last Admin: 08/24/17 08:17 Dose: 100 mg Memantine (Namenda) 10 mg PO BID [facility] Last Admin: 08/24/17 18:43 Dose: 10 mg Metoprolol Succinate (Toprol Xl) 50 mg PO DAILY [facility] Last Admin: 08/24/17 08:18 Dose: 50 mg Montelukast Sodium (Singulair) 10 mg PO DAILY [facility] Last Admin: 08/24/17 08:18 Dose: 10 mg Nitrofurantoin Macrocrystals (Macrobid) 100 mg PO Q12 [facility] Pantoprazole Sodium (Protonix Ec Tab) 40 mg PO DAILY [facility] Last Admin: 08/24/17 08:18 Dose: 40 mg Paroxetine HCl (Paxil) 20 mg PO DAILY [facility] Last Admin: 08/24/17 08:16 Dose: 20 mg Pravastatin Sodium (Pravachol) 20 mg PO HS [facility] Last Admin: 08/23/17 21:12 Dose: 20 mg Fluticasone/Salmeterol (Advair Diskus 250/50) 1 puff INH DAILY [facility] Last Admin: 08/24/17 08:14 Dose: 1 puff - Labs Labs: 08/21/17 04:30 08/19/17 22:29 PT 12.3 Seconds (9.8-13.1) 08/19/17 22:29 INR 1.1 (0.9-1.2) 08/19/17 22:29 APTT 29.7 Seconds (25.6-37.1) 08/19/17 22:29 - Eye Exam Eye Exam: Normal appearance - ENT Exam ENT Exam: Mucous Membranes Moist - Respiratory Exam Respiratory Exam: Rales - Cardiovascular Exam Cardiovascular Exam: REGULAR RHYTHM - GI/Abdominal Exam GI & Abdominal Exam: Normal Bowel Sounds Assessment and Plan (1) COPD (chronic obstructive pulmonary disease) Status: Acute (2) Hyperlipidemia Status: Chronic (3) Hypertension Status: Chronic (4) Osteoarthritis Status: Chronic (5) Pleural effusion Status: Acute - Assessment and Plan (Free Text) Plan: Con tmeds Cont tx check probnp PT eval recheck CXR in am
[2017-08-24] MEDS: Pravastatin Sodium 20 MG TAB PO SCH (21:51)
[2017-08-25 05:20] LABS: BASO % 0.3 % (0.0-2.0); EOS # 0.3 K/uL (0.0-0.7); EOS % 3.7 % (0.0-4.0); HEMOGLOBIN 10.7 g/dL (12.0-16.0); LYMPH # 1.1 K/uL (1.0-4.3); LYMPH % 13.7 % (20.0-40.0); MEAN CELL VOLUME 79.9 fl (81.0-99.0); MEAN CORPUSCULAR HEMOGLOBIN 25.8 pg (27.0-31.0); MEAN CORPUSCULAR HGB CONC 32.3 g/dL (33.0-37.0); MEAN PLATELET VOLUME 8.8 fl (7.2-11.7); MONO # 0.9 K/uL (0.0-0.8); MONO % 10.4 % (0.0-10.0); NEUT # 5.9 K/uL (1.8-7.0); NEUT % 71.9 % (50.0-75.0); RBC 4.17 Mil/uL (3.80-5.20); RED CELL DISTRIBUTION WIDTH 14.9 % (11.5-14.5); WHITE BLOOD COUNT 8.3 K/uL (4.8-10.8)
[2017-08-25 05:29] LABS: B-TYPE NATRIURETIC PEPTIDE 1230 pg/ml (0-900)
[2017-08-25 05:32] LABS: ALBUMIN 3.2 g/dL (3.5-5.0); ALT/SGPT 31 U/L (9-52); AST/SGOT 21 U/L (14-36); BLOOD UREA NITROGEN 25 mg/dl (7-17); CALCIUM 8.8 mg/dL (8.4-10.2); GFR AFRICAN-AMERICAN > 60; GFR NON-AFRICAN AMERICAN > 60
[2017-08-25] MEDS: Fluticasone-Salmeterol 250-50mcg Diskus INH SCH (08:48)
[2017-08-25] MEDS: Enoxaparin 40 mg Syringe SC SCH (08:51)
[2017-08-25] MEDS: Metoprolol Succinate 50 mg XL Tab PO SCH (08:54)
[2017-08-25] MEDS: Pantoprazole 40 mg EC Tab PO SCH (08:55)
[2017-08-25] MEDS: Latanoprost 0.005% Opht SOUTION OU SCH (08:56)
--- NOTE | 2017-08-25 10:42 | RAD ---
PROCEDURE: CHEST RADIOGRAPH, 1 VIEW HISTORY: pleural effusion COMPARISON: Portable chest 08/21/2017. FINDINGS: LUNGS: Persistent airspace disease in the right base and may have increased slightly in the interval. Remaining lung sanon are clear. PLEURA: Small right pleural effusion is not excluded with none identified the left. No pneumothorax bilaterally. CARDIOVASCULAR: Cardiac silhouette remains prominent. No pulmonary vascular derangement. OSSEOUS STRUCTURES: No significant abnormalities. VISUALIZED UPPER ABDOMEN: Normal. OTHER FINDINGS: None. IMPRESSION: A mild increase in right basilar airspace disease appreciated with smaller pleural effusion not excluded. None is seen the left. Stable likely cardiomegaly.
[2017-08-25] MEDS: Meropenem 500 MG in Sodium Chloride 0.9% 100 ML IVPB SCH ×2 (11:18→16:19)
--- NOTE | 2017-08-25 11:31 | CP.PCM.PN ---
Subjective - Date & Time of Evaluation Date of Evaluation: 08/25/17 Time of Evaluation: 11:24 - Subjective Subjective: Vital signs remained stable. She is afebrile. Follow-up chest x-ray shows persistence of the right pleural effusion with right basilar density. CT scan did show a moderate residual pleural effusion with atelectasis at the right base. Pleural fluid was transudate of biochemistry and negative on culture. Cytologies are still pending. Urine culture did grow Escherichia coli and Macrodantin had been started. She claims to feel well this morning and offers no complaints of dyspnea or cough. She is complaining of left shoulder pain this morning. Dullness to percussion is present at the right base posteriorly and breath sounds are absent in this area. No audible wheezing. Dry rales are heard in both lower lobes more so right. Persistent/recurrent pleural effusion with right lower lobe atelectasis. Long-standing bronchial asthma by history. Further interventions will be discussed with family members considering the patient's age and her dementia. She is currently asymptomatic despite findings of pleural effusion and atelectasis. Flexible fiberoptic bronchoscopy with transbronchial lung biopsy would be considered as a next diagnostic step followed by pleuroscopy with biopsy if needed. Objective - Vital Signs/Intake and Output Vital Signs (last 24 hours): Temp Pulse Resp BP Pulse Ox 97.3 F L 54 L 18 134/61 97 08/25/17 07:53 08/25/17 07:53 08/25/17 07:53 08/25/17 08:49 08/25/17 07:53 Intake and Output: 08/24/17 08/25/17 23:59 11:59 Intake Total 720 Balance 720 - Medications Medications: Current Medications Acetaminophen (Tylenol 325mg Tab) 650 mg PO Q6 PRN PRN Reason: Pain, moderate (4-7) Last Admin: 08/24/17 21:51 Dose: 650 mg Albuterol/Ipratropium (Duoneb 3 Mg/0.5 Mg (3 Ml) Ud) 3 ml IH RQ4 PRN PRN Reason: Shortness of Breath Enoxaparin Sodium (Lovenox) 40 mg SC DAILY [facility] PRN Reason: Protocol Last Admin: 08/25/17 08:51 Dose: 40 mg Meropenem 500 mg/ Sodium (Chloride) 100 mls @ 100 mls/hr IVPB Q8 [facility] PRN Reason: Protocol Latanoprost (Xalatan Opht) 1 drop OU DAILY [facility] Last Admin: 08/25/17 08:56 Dose: 1 drop Losartan Potassium (Cozaar) 100 mg PO DAILY [facility] Last Admin: 08/25/17 08:49 Dose: 100 mg Memantine (Namenda) 10 mg PO BID [facility] Last Admin: 08/25/17 08:52 Dose: 10 mg Metoprolol Succinate (Toprol Xl) 50 mg PO DAILY [facility] Last Admin: 08/25/17 08:54 Dose: Not Given Montelukast Sodium (Singulair) 10 mg PO DAILY [facility] Last Admin: 08/25/17 08:53 Dose: 10 mg Nitrofurantoin Macrocrystals (Macrobid) 100 mg PO Q12 [facility] Last Admin: 08/25/17 08:52 Dose: 100 mg Nystatin (Nystop Topical Powder) 1 applic TOP TID [facility] Pantoprazole Sodium (Protonix Ec Tab) 40 mg PO DAILY [facility] Last Admin: 08/25/17 08:55 Dose: 40 mg Paroxetine HCl (Paxil) 20 mg PO DAILY [facility] Last Admin: 08/25/17 08:53 Dose: 20 mg Pravastatin Sodium (Pravachol) 20 mg PO HS [facility] Last Admin: 08/24/17 21:51 Dose: 20 mg - Labs Labs: 08/25/17 04:20 08/25/17 04:20 PT 12.3 Seconds (9.8-13.1) 08/19/17 22:29 INR 1.1 (0.9-1.2) 08/19/17 22:29 APTT 29.7 Seconds (25.6-37.1) 08/19/17 22:29 Assessment and Plan (1) Pleural effusion Status: Acute (2) Chronic asthma Status: Chronic (3) Dementia Status: Chronic
[2017-08-25] MEDS ORDERED: Meropenem 1 GM in Sodium Chloride 0.9% 100 ML IVPB SCH (16:45)
[2017-08-25] MEDS: Pravastatin Sodium 20 MG TAB PO SCH (21:13)
--- NOTE | 2017-08-26 00:13 | CARD ---
APPROVED REPORT EKG Measurement Heart [id number] IN [id number] <Conclusion> Sinus bradycardia Otherwise normal ECG
--- NOTE | 2017-08-26 04:26 | CON ---
DATE: INFECTIOUS DISEASE CONSULTATION HISTORY OF PRESENT ILLNESS: The patient is an 86-year-old female who is being seen by me because of an ESBL positive E. coli that was found in the urine. Patient has a history of dementia and is an 86-year-old female who was taken to the emergency room for evaluation of a pleural effusion on chest x-ray by the primary care physician. She has also been having chest pain and shortness of breath for 4 days. I am seeing her only for the pleural effusion. She is being seen by Pulmonary and Wound Care Management for excoriation on the breast and also is being seen by Interventional Radiology. Chest x-ray shows right pleural effusion and stable consolidative changes on the right lower lobe. She is presently on only meropenem, which I just started. I changed the dose to 1 g IV piggyback q.12. ASSESSMENT AND PLAN: She has pleural effusion, which is being followed by Dr. Gamboa, chronic asthma, dementia, which is chronic, and urinary tract infection with extended-spectrum beta-lactamase Escherichia coli, for which I started meropenem. Richard Denny MD
[2017-08-26] MEDS: Enoxaparin 40 mg Syringe SC SCH (09:46)
[2017-08-26] MEDS: Pantoprazole 40 mg EC Tab PO SCH (09:48)
[2017-08-26] MEDS: Metoprolol Succinate 50 mg XL Tab PO SCH (09:49)
--- NOTE | 2017-08-26 09:58 | CP.PCM.PN ---
Subjective - Date & Time of Evaluation Date of Evaluation: 08/26/17 Time of Evaluation: 09:56 - Subjective Subjective: Eating breakfast, claims no coughing this morning. Swallow eval has been requested. Pleural fluid was transudate by chemistry with 'no growth' on culture. I do not think a cytology specimen was sent to the lab. At this time there are scattered dry rales present in the lower lobes of both lungs. No audible wheezes are bronchial breath sounds. Spoke with her neice who apparently has POA and explained reason for bronchoscopy. She is willing to consent when necessary. She explained the the patient had thoracentesis this past summer with re- accumulation of the fluid resulting in tube thoracostomy. I will await results of the swallow study and proceed based on that. If the swallow study does not show evidence of aspiration then FFB will be scheduled. I also informed her that VATS with biopsy and possibly pleurodesis may ultimately be needed. Objective - Vital Signs/Intake and Output Vital Signs (last 24 hours): Temp Pulse Resp BP Pulse Ox 98.1 F 75 18 130/65 97 08/26/17 08:05 08/26/17 08:05 08/26/17 08:05 08/26/17 08:05 08/26/17 08:05 - Medications Medications: Current Medications Acetaminophen (Tylenol 325mg Tab) 650 mg PO Q6 PRN PRN Reason: Pain, moderate (4-7) Last Admin: 08/24/17 21:51 Dose: 650 mg Albuterol/Ipratropium (Duoneb 3 Mg/0.5 Mg (3 Ml) Ud) 3 ml IH RQ4 PRN PRN Reason: Shortness of Breath Enoxaparin Sodium (Lovenox) 40 mg SC DAILY [facility] PRN Reason: Protocol Last Admin: 08/26/17 09:46 Dose: 40 mg Meropenem 1 gm/ Sodium (Chloride) 100 mls @ 100 mls/hr IVPB Q12@0000,1200 [facility] PRN Reason: Protocol Latanoprost (Xalatan Opht) 1 drop OU DAILY [facility] Last Admin: 08/25/17 08:56 Dose: 1 drop Losartan Potassium (Cozaar) 100 mg PO DAILY [facility] Last Admin: 08/26/17 09:46 Dose: 100 mg Memantine (Namenda) 10 mg PO BID [facility] Last Admin: 08/26/17 09:48 Dose: 10 mg Metoprolol Succinate (Toprol Xl) 50 mg PO DAILY [facility] Last Admin: 08/26/17 09:49 Dose: 50 mg Montelukast Sodium (Singulair) 10 mg PO DAILY [facility] Last Admin: 08/26/17 09:48 Dose: 10 mg Nystatin (Nystop Topical Powder) 1 applic TOP TID [facility] Last Admin: 08/26/17 09:45 Dose: 1 applic Pantoprazole Sodium (Protonix Ec Tab) 40 mg PO DAILY [facility] Last Admin: 08/26/17 09:48 Dose: 40 mg Paroxetine HCl (Paxil) 20 mg PO DAILY [facility] Last Admin: 08/26/17 09:48 Dose: 20 mg Pravastatin Sodium (Pravachol) 20 mg PO HS [facility] Last Admin: 08/25/17 21:13 Dose: 20 mg - Labs Labs: 08/25/17 04:20 08/25/17 04:20 PT 12.3 Seconds (9.8-13.1) 08/19/17 22:29 INR 1.1 (0.9-1.2) 08/19/17 22:29 APTT 29.7 Seconds (25.6-37.1) 08/19/17 22:29 Assessment and Plan (1) Pleural effusion Status: Acute (2) Chronic asthma Status: Chronic (3) Dementia Status: Chronic
--- NOTE | 2017-08-26 10:56 | CP.PCM.PN ---
Subjective - Date & Time of Evaluation Date of Evaluation: 08/26/17 Time of Evaluation: 08:25 - Subjective Subjective: Patient seen and examined with attending Dr. Gaviria in telemetry unit this morning. Denies SOB, and chest pain at this eval. Has been afebrile, and rest of VS stable WNL no events overnight Objective - Vital Signs/Intake and Output Vital Signs (last 24 hours): Temp Pulse Resp BP Pulse Ox 98.1 F 75 18 130/65 97 08/26/17 08:05 08/26/17 08:05 08/26/17 08:05 08/26/17 08:05 08/26/17 08:05 - Medications Medications: Current Medications Acetaminophen (Tylenol 325mg Tab) 650 mg PO Q6 PRN PRN Reason: Pain, moderate (4-7) Last Admin: 08/24/17 21:51 Dose: 650 mg Albuterol/Ipratropium (Duoneb 3 Mg/0.5 Mg (3 Ml) Ud) 3 ml IH RQ4 PRN PRN Reason: Shortness of Breath Enoxaparin Sodium (Lovenox) 40 mg SC DAILY [facility] PRN Reason: Protocol Last Admin: 08/26/17 09:46 Dose: 40 mg Meropenem 1 gm/ Sodium (Chloride) 100 mls @ 100 mls/hr IVPB Q12@0000,1200 [facility] PRN Reason: Protocol Latanoprost (Xalatan Opht) 1 drop OU DAILY [facility] Last Admin: 08/25/17 08:56 Dose: 1 drop Losartan Potassium (Cozaar) 100 mg PO DAILY [facility] Last Admin: 08/26/17 09:46 Dose: 100 mg Memantine (Namenda) 10 mg PO BID [facility] Last Admin: 08/26/17 09:48 Dose: 10 mg Metoprolol Succinate (Toprol Xl) 50 mg PO DAILY [facility] Last Admin: 08/26/17 09:49 Dose: 50 mg Montelukast Sodium (Singulair) 10 mg PO DAILY [facility] Last Admin: 08/26/17 09:48 Dose: 10 mg Nystatin (Nystop Topical Powder) 1 applic TOP TID [facility] Last Admin: 08/26/17 09:45 Dose: 1 applic Pantoprazole Sodium (Protonix Ec Tab) 40 mg PO DAILY [facility] Last Admin: 08/26/17 09:48 Dose: 40 mg Paroxetine HCl (Paxil) 20 mg PO DAILY [facility] Last Admin: 08/26/17 09:48 Dose: 20 mg Pravastatin Sodium (Pravachol) 20 mg PO HS [facility] Last Admin: 08/25/17 21:13 Dose: 20 mg - Labs Labs: 08/25/17 04:20 08/25/17 04:20 PT 12.3 Seconds (9.8-13.1) 08/19/17 22:29 INR 1.1 (0.9-1.2) 08/19/17 22:29 APTT 29.7 Seconds (25.6-37.1) 08/19/17 22:29 - Constitutional Appears: Non-toxic, No Acute Distress - ENT Exam ENT Exam: Mucous Membranes Moist - Respiratory Exam Respiratory Exam: NORMAL BREATHING PATTERN Additional comments: Rales (right lower lobe, CTA of left lung field) - Cardiovascular Exam Cardiovascular Exam: REGULAR RHYTHM, +S1, +S2 - GI/Abdominal Exam GI & Abdominal Exam: Soft, Normal Bowel Sounds. absent: Guarding, Rigid, Tenderness - Extremities Exam Extremities Exam: Normal Inspection. absent: Calf Tenderness, Pedal Edema - Neurological Exam Neurological Exam: Alert, Awake, Oriented x3 - Skin Skin Exam: Dry, Intact, Normal Color Assessment and Plan (1) Pleural effusion Assessment & Plan: Pleural fluid was transudate by chemistry with 'no growth' on culture. awaiting of pleural fluid cytology results as per Pulmonology is recommended swallow eval, if no evidence of aspiration recommended Bronchoscopy with trasbronchial lung biopsy. May need VATS with biopsy possibly pleurodesis. Status: Acute (2) Hypertension Status: Chronic (3) Dementia Status: Chronic (4) Chronic asthma Status: Chronic (5) DVT prophylaxis Assessment & Plan: lovenox Status: Acute
[2017-08-26] MEDS: Meropenem 1 GM in Sodium Chloride 0.9% 100 ML IVPB SCH (11:41)
[2017-08-26] MEDS: Latanoprost 0.005% Opht SOUTION OU SCH (11:48)
[2017-08-26] MEDS: Pravastatin Sodium 20 MG TAB PO SCH (21:33)
--- NOTE | 2017-08-26 22:00 | CP.PCM.PN ---
Subjective - Date & Time of Evaluation Date of Evaluation: 08/25/17 Time of Evaluation: 09:30 - Subjective Subjective: Patient remains stable. Noted persistent pleural effusion Has no SOB. No chest pain. Objective - Vital Signs/Intake and Output Vital Signs (last 24 hours): Temp Pulse Resp BP Pulse Ox 98.3 F 77 20 133/71 98 08/26/17 20:14 08/26/17 20:14 08/26/17 20:14 08/26/17 20:14 08/26/17 20:14 Intake and Output: 08/26/17 08/27/17 18:59 06:59 Intake Total 1050 Balance 1050 - Medications Medications: Current Medications Acetaminophen (Tylenol 325mg Tab) 650 mg PO Q6 PRN PRN Reason: Pain, moderate (4-7) Last Admin: 08/26/17 21:35 Dose: 650 mg Albuterol/Ipratropium (Duoneb 3 Mg/0.5 Mg (3 Ml) Ud) 3 ml IH RQ4 PRN PRN Reason: Shortness of Breath Enoxaparin Sodium (Lovenox) 40 mg SC DAILY [facility] PRN Reason: Protocol Last Admin: 08/26/17 09:46 Dose: 40 mg Meropenem 1 gm/ Sodium (Chloride) 100 mls @ 100 mls/hr IVPB Q12@0000,1200 [facility] PRN Reason: Protocol Last Admin: 08/26/17 11:41 Dose: 100 mls/hr Latanoprost (Xalatan Opht) 1 drop OU DAILY [facility] Last Admin: 08/26/17 11:48 Dose: 1 drop Losartan Potassium (Cozaar) 100 mg PO DAILY [facility] Last Admin: 08/26/17 09:46 Dose: 100 mg Memantine (Namenda) 10 mg PO BID [facility] Last Admin: 08/26/17 16:45 Dose: 10 mg Metoprolol Succinate (Toprol Xl) 50 mg PO DAILY [facility] Last Admin: 08/26/17 09:49 Dose: 50 mg Montelukast Sodium (Singulair) 10 mg PO DAILY [facility] Last Admin: 08/26/17 09:48 Dose: 10 mg Nystatin (Nystop Topical Powder) 1 applic TOP TID [facility] Last Admin: 08/26/17 16:44 Dose: 1 applic Pantoprazole Sodium (Protonix Ec Tab) 40 mg PO DAILY [facility] Last Admin: 08/26/17 09:48 Dose: 40 mg Paroxetine HCl (Paxil) 20 mg PO DAILY [facility] Last Admin: 08/26/17 09:48 Dose: 20 mg Pravastatin Sodium (Pravachol) 20 mg PO HS [facility] Last Admin: 08/26/17 21:33 Dose: 20 mg - Labs Labs: 08/25/17 04:20 08/25/17 04:20 PT 12.3 Seconds (9.8-13.1) 08/19/17 22:29 INR 1.1 (0.9-1.2) 08/19/17 22:29 APTT 29.7 Seconds (25.6-37.1) 08/19/17 22:29 - Head Exam Head Exam: NORMAL INSPECTION - Eye Exam Eye Exam: Normal appearance - ENT Exam ENT Exam: Mucous Membranes Moist - Respiratory Exam Respiratory Exam: NORMAL BREATHING PATTERN Additional comments: decreased breath sounds lower lung - Cardiovascular Exam Cardiovascular Exam: REGULAR RHYTHM - GI/Abdominal Exam GI & Abdominal Exam: Normal Bowel Sounds - Neurological Exam Neurological Exam: Awake, Oriented x3 Assessment and Plan (1) COPD (chronic obstructive pulmonary disease) Status: Acute (2) Hyperlipidemia Status: Chronic (3) Hypertension Status: Chronic (4) Osteoarthritis Status: Chronic (5) Pleural effusion Status: Acute - Assessment and Plan (Free Text) Plan: Plan Con tmeds con ttx lasix follow up with Pulmonary
[2017-08-27] MEDS: Meropenem 1 GM in Sodium Chloride 0.9% 100 ML IVPB SCH ×2 (00:10→12:00)
[2017-08-27 05:52] LABS: HEMOGLOBIN 10.2 g/dL (12.0-16.0); MEAN CELL VOLUME 79.4 fl (81.0-99.0); MEAN CORPUSCULAR HEMOGLOBIN 25.7 pg (27.0-31.0); MEAN CORPUSCULAR HGB CONC 32.4 g/dL (33.0-37.0); RBC 3.97 Mil/uL (3.80-5.20); RED CELL DISTRIBUTION WIDTH 14.8 % (11.5-14.5); WHITE BLOOD COUNT 6.6 K/uL (4.8-10.8)
[2017-08-27 06:18] LABS: BLOOD UREA NITROGEN 25 mg/dl (7-17); CALCIUM 8.6 mg/dL (8.4-10.2); GFR AFRICAN-AMERICAN > 60; GFR NON-AFRICAN AMERICAN > 60
[2017-08-27] MEDS: Pantoprazole 40 mg EC Tab PO SCH (08:56)
[2017-08-27] MEDS: Metoprolol Succinate 50 mg XL Tab PO SCH (08:57)
[2017-08-27] MEDS: Latanoprost 0.005% Opht SOUTION OU SCH (08:58)
--- NOTE | 2017-08-27 09:51 | CP.PCM.PN ---
Subjective - Date & Time of Evaluation Date of Evaluation: 08/27/17 Time of Evaluation: 09:46 - Subjective Subjective: Appears stable clinically. Swallow eval showed no overt aspiration. Vital signs remain stable. Afebrile, good oxygenation. Pleural fluid cytology is unremarkable. No growth on culture, transudate. Planned flexible bronchoscopy for tomorrow morning. Phone consent obtained from her niece who is POA. Lovenox held, NPO after midnight. Objective - Vital Signs/Intake and Output Vital Signs (last 24 hours): Temp Pulse Resp BP Pulse Ox 97.3 F L 61 18 104/62 96 08/27/17 08:00 08/27/17 08:57 08/27/17 08:00 08/27/17 08:57 08/27/17 08:00 Intake and Output: 08/26/17 08/27/17 23:59 11:59 Intake Total 1050 Balance 1050 - Medications Medications: Current Medications Acetaminophen (Tylenol 325mg Tab) 650 mg PO Q6 PRN PRN Reason: Pain, moderate (4-7) Last Admin: 08/26/17 21:35 Dose: 650 mg Albuterol/Ipratropium (Duoneb 3 Mg/0.5 Mg (3 Ml) Ud) 3 ml IH RQ4 PRN PRN Reason: Shortness of Breath Docusate Sodium (Colace) 200 mg PO DAILY [facility] Enoxaparin Sodium (Lovenox) 40 mg SC DAILY [facility] PRN Reason: Protocol Last Admin: 08/26/17 09:46 Dose: 40 mg Meropenem 1 gm/ Sodium (Chloride) 100 mls @ 100 mls/hr IVPB Q12@0000,1200 [facility] PRN Reason: Protocol Last Admin: 08/27/17 00:10 Dose: 100 mls/hr Latanoprost (Xalatan Opht) 1 drop OU DAILY [facility] Last Admin: 08/27/17 08:58 Dose: 1 drop Losartan Potassium (Cozaar) 100 mg PO DAILY [facility] Last Admin: 08/27/17 08:56 Dose: 100 mg Memantine (Namenda) 10 mg PO BID [facility] Last Admin: 08/27/17 08:57 Dose: 10 mg Metoprolol Succinate (Toprol Xl) 50 mg PO DAILY [facility] Last Admin: 08/27/17 08:57 Dose: 50 mg Montelukast Sodium (Singulair) 10 mg PO DAILY [facility] Last Admin: 08/27/17 08:57 Dose: 10 mg Nystatin (Nystop Topical Powder) 1 applic TOP TID [facility] Last Admin: 08/27/17 08:57 Dose: 1 applic Pantoprazole Sodium (Protonix Ec Tab) 40 mg PO DAILY [facility] Last Admin: 08/27/17 08:56 Dose: 40 mg Paroxetine HCl (Paxil) 20 mg PO DAILY [facility] Last Admin: 08/27/17 08:57 Dose: 20 mg Pravastatin Sodium (Pravachol) 20 mg PO HS [facility] Last Admin: 08/26/17 21:33 Dose: 20 mg - Labs Labs: 08/27/17 04:30 08/27/17 04:30 PT 12.3 Seconds (9.8-13.1) 08/19/17 22:29 INR 1.1 (0.9-1.2) 08/19/17 22:29 APTT 29.7 Seconds (25.6-37.1) 08/19/17 22:29 Assessment and Plan (1) Pleural effusion Status: Acute (2) Chronic asthma Status: Chronic (3) Dementia Status: Chronic
[2017-08-27 11:28] LABS: INR 1.1 (0.9-1.2); PROTHROMBIN TIME 12.6 Seconds (9.8-13.1)
--- NOTE | 2017-08-27 18:48 | CP.PCM.PN ---
Subjective - Date & Time of Evaluation Date of Evaluation: 08/27/17 Time of Evaluation: 08:30 - Subjective Subjective: Patient seen and examined with attending Dr. Gaviria this morning. Afebrile, VS stable schedule for flexible bronchoscopy tomorrow morning bu Dr. Gamboa. Will be NPO after midnight Had an uneventful night Objective - Vital Signs/Intake and Output Vital Signs (last 24 hours): Temp Pulse Resp BP Pulse Ox 97.8 F 61 20 95/52 L 95 08/27/17 15:57 08/27/17 15:57 08/27/17 15:57 08/27/17 15:57 08/27/17 15:57 - Medications Medications: Current Medications Acetaminophen (Tylenol 325mg Tab) 650 mg PO Q6 PRN PRN Reason: Pain, moderate (4-7) Last Admin: 08/26/17 21:35 Dose: 650 mg Albuterol/Ipratropium (Duoneb 3 Mg/0.5 Mg (3 Ml) Ud) 3 ml IH RQ4 PRN PRN Reason: Shortness of Breath Docusate Sodium (Colace) 200 mg PO DAILY [facility] Last Admin: 08/27/17 09:00 Dose: 200 mg Enoxaparin Sodium (Lovenox) 40 mg SC DAILY [facility] PRN Reason: Protocol Last Admin: 08/26/17 09:46 Dose: 40 mg Meropenem 1 gm/ Sodium (Chloride) 100 mls @ 100 mls/hr IVPB Q12@0000,1200 [facility] PRN Reason: Protocol Last Admin: 08/27/17 12:00 Dose: 100 mls/hr Latanoprost (Xalatan Opht) 1 drop OU DAILY [facility] Last Admin: 08/27/17 08:58 Dose: 1 drop Losartan Potassium (Cozaar) 100 mg PO DAILY [facility] Last Admin: 08/27/17 08:56 Dose: 100 mg Memantine (Namenda) 10 mg PO BID [facility] Last Admin: 08/27/17 17:57 Dose: 10 mg Metoprolol Succinate (Toprol Xl) 50 mg PO DAILY [facility] Last Admin: 08/27/17 08:57 Dose: 50 mg Montelukast Sodium (Singulair) 10 mg PO DAILY [facility] Last Admin: 08/27/17 08:57 Dose: 10 mg Nystatin (Nystop Topical Powder) 1 applic TOP TID [facility] Last Admin: 12/13/17 17:57 Dose: 1 applic Pantoprazole Sodium (Protonix Ec Tab) 40 mg PO DAILY [facility] Last Admin: 08/27/17 08:56 Dose: 40 mg Paroxetine HCl (Paxil) 20 mg PO DAILY [facility] Last Admin: 08/27/17 08:57 Dose: 20 mg Pravastatin Sodium (Pravachol) 20 mg PO HS [facility] Last Admin: 08/26/17 21:33 Dose: 20 mg - Labs Labs: 08/27/17 04:30 08/27/17 04:30 PT 12.6 Seconds (9.8-13.1) 08/27/17 10:30 INR 1.1 (0.9-1.2) 08/27/17 10:30 APTT 30.0 Seconds (25.6-37.1) 08/27/17 10:30 - Additional Findings Additional findings: Constitutional Appears: Non-toxic, No Acute Distress - ENT Exam ENT Exam: Mucous Membranes Moist - Respiratory Exam Respiratory Exam: NORMAL BREATHING PATTERN Additional comments: Rales (right lower lobe, CTA of left lung field) - Cardiovascular Exam Cardiovascular Exam: REGULAR RHYTHM, +S1, +S2 - GI/Abdominal Exam GI & Abdominal Exam: Soft, Normal Bowel Sounds. absent: Guarding, Rigid, Tenderness - Extremities Exam Extremities Exam: Normal Inspection. absent: Calf Tenderness, Pedal Edema - Neurological Exam Neurological Exam: Alert, Awake, Oriented x3 - Skin Skin Exam: Dry, Intact, Normal Color Assessment and Plan (1) Pleural effusion Assessment & Plan: Swallow eval showed no overt aspiration. Pleural fluid cytology is unremarkable. For flexible bronchoscopy for tomorrow morning. NPO after midnight. Lovenox held Status: Acute (2) Hypertension Status: Chronic (3) Dementia Status: Chronic (4) Chronic asthma Status: Chronic (5) DVT prophylaxis Assessment & Plan: Held for flexible bronchoscopy tomorrow AM Status: Acute
[2017-08-27] MEDS: Pravastatin Sodium 20 MG TAB PO SCH (21:09)
[2017-08-28] MEDS: Meropenem 1 GM in Sodium Chloride 0.9% 100 ML IVPB SCH ×2 (00:22→13:30)
[2017-08-28] MEDS ORDERED: EPINEPHrine 1 mg/ml (1:1000) Inj ONE (07:12)
[2017-08-28] MEDS ORDERED: Lidocaine 1% Inj (20ml) ONE (07:13)
[2017-08-28] MEDS ORDERED: Lidocaine 2% Jelly (5 ml) TOP ONE (07:13)
[2017-08-28] MEDS ORDERED: Phenylephrine 10 mg/ml Inj ONE (07:19)
[2017-08-28] MEDS ORDERED: ePHEDrine 50 mg/ml Inj ONE (07:23)
[2017-08-28] MEDS ORDERED: Propofol 10 mg/ml Inj (20 ML) ONE (07:45)
[2017-08-28] MEDS ORDERED: Etomidate 20 mg/10ml Inj IV ONE (07:51)
[2017-08-28] MEDS ORDERED: Lactated Ringer's 1,000 ML IV ONE (08:35)
[2017-08-28] MEDS ORDERED: EPINEPHrine 1 mg/ml (1:1000) Inj IV ONE (08:35)
[2017-08-28] MEDS ORDERED: Lidocaine 2% GEL TOP ONE (08:35)
[2017-08-28] MEDS ORDERED: Lidocaine 1% Inj (20ml) TP ONE (08:35)
--- NOTE | 2017-08-28 08:38 | CP.PCM.PN ---
Subjective - Date & Time of Evaluation Date of Evaluation: 08/28/17 Time of Evaluation: 07:20 - Subjective Subjective: Patient seen and examined with Dr. Gaviria in Telemetry unit this morning. NPO for flexible bronchoscopy today morning by Dr. Gamboa Afebrile, medically stable Had an uneventful night Objective - Vital Signs/Intake and Output Vital Signs (last 24 hours): Temp Pulse Resp BP Pulse Ox 97.9 F 64 18 149/68 98 08/28/17 05:00 08/28/17 05:00 08/28/17 05:00 08/28/17 05:00 08/28/17 05:00 - Medications Medications: Current Medications Acetaminophen (Tylenol 325mg Tab) 650 mg PO Q6 PRN PRN Reason: Pain, moderate (4-7) Last Admin: 08/26/17 21:35 Dose: 650 mg Albuterol/Ipratropium (Duoneb 3 Mg/0.5 Mg (3 Ml) Ud) 3 ml IH RQ4 PRN PRN Reason: Shortness of Breath Docusate Sodium (Colace) 200 mg PO DAILY [facility] Last Admin: 08/27/17 09:00 Dose: 200 mg Enoxaparin Sodium (Lovenox) 40 mg SC DAILY [facility] PRN Reason: Protocol Last Admin: 08/26/17 09:46 Dose: 40 mg Meropenem 1 gm/ Sodium (Chloride) 100 mls @ 100 mls/hr IVPB Q12@0000,1200 [facility] PRN Reason: Protocol Last Admin: 08/28/17 00:22 Dose: 100 mls/hr Latanoprost (Xalatan Opht) 1 drop OU DAILY [facility] Last Admin: 08/27/17 08:58 Dose: 1 drop Losartan Potassium (Cozaar) 100 mg PO DAILY [facility] Last Admin: 08/27/17 08:56 Dose: 100 mg Memantine (Namenda) 10 mg PO BID [facility] Last Admin: 08/27/17 17:57 Dose: 10 mg Metoprolol Succinate (Toprol Xl) 50 mg PO DAILY [facility] Last Admin: 08/27/17 08:57 Dose: 50 mg Montelukast Sodium (Singulair) 10 mg PO DAILY [facility] Last Admin: 08/27/17 08:57 Dose: 10 mg Nystatin (Nystop Topical Powder) 1 applic TOP TID [facility] Last Admin: 08/27/17 17:57 Dose: 1 applic Pantoprazole Sodium (Protonix Ec Tab) 40 mg PO DAILY [facility] Last Admin: 08/27/17 08:56 Dose: 40 mg Paroxetine HCl (Paxil) 20 mg PO DAILY [facility] Last Admin: 08/27/17 08:57 Dose: 20 mg Pravastatin Sodium (Pravachol) 20 mg PO HS [facility] Last Admin: 08/27/17 21:09 Dose: 20 mg - Labs Labs: 08/27/17 04:30 08/27/17 04:30 PT 12.6 Seconds (9.8-13.1) 08/27/17 10:30 INR 1.1 (0.9-1.2) 08/27/17 10:30 APTT 30.0 Seconds (25.6-37.1) 08/27/17 10:30 - Additional Findings Additional findings: Constitutional Appears: Non-toxic, No Acute Distress - ENT Exam ENT Exam: Mucous Membranes Moist - Respiratory Exam Respiratory Exam: NORMAL BREATHING PATTERN Additional comments: Rales (right lower lobe, CTA of left lung field) - Cardiovascular Exam Cardiovascular Exam: REGULAR RHYTHM, +S1, +S2 - GI/Abdominal Exam GI & Abdominal Exam: Soft, Normal Bowel Sounds. absent: Guarding, Rigid, Tenderness - Extremities Exam Extremities Exam: Normal Inspection. absent: Calf Tenderness, Pedal Edema - Neurological Exam Neurological Exam: Alert, Awake, Oriented x3 - Skin Skin Exam: Dry, Intact, Normal Color Assessment and Plan (1) Pleural effusion Assessment & Plan: For flexible bronchoscopy for tomorrow morning. NPO Lovenox held Status: Acute (2) Hypertension Status: Chronic (3) Dementia Status: Chronic (4) Chronic asthma Status: Chronic (5) DVT prophylaxis Assessment & Plan: Held for flexible bronchoscopy today AM Status: Acute
[2017-08-28] MEDS ORDERED: Sodium Chloride 0.9% 500 ML IV ONE (09:10)
[2017-08-28] MEDS ORDERED: Albuterol 0.083% Inhal Sol (2.5 mg/3 mL) UD INH ONE (09:13)
[2017-08-28] MEDS ORDERED: Albuterol 0.083% Inhal Sol (2.5 mg/3 mL) UD INH PRN ×2 (09:29→10:18)
--- NOTE | 2017-08-28 11:14 | RAD ---
HISTORY: S/P Bronchoscopy COMPARISON: Portable chest 08/25/2017. FINDINGS: LUNGS: There is a borderline improved right basilar atelectasis or infiltrate with none identified at the left. PLEURA: Trace fluid seen the minor fissure once again as well as a mild right pleural effusion being present. No pneumothorax bilaterally. No left pleural effusion identified. CARDIOVASCULAR: Stable cardiac silhouette is appreciated without pulmonary vascular derangement identified. OSSEOUS STRUCTURES: No significant abnormalities. VISUALIZED UPPER ABDOMEN: Normal. OTHER FINDINGS: None. IMPRESSION: Borderline improvement significant right basilar airspace disease with none on the left. Limited right pleural effusions are identified.
[2017-08-28] MEDS: Pantoprazole 40 mg EC Tab PO SCH (13:26)
[2017-08-28] MEDS: Metoprolol Succinate 50 mg XL Tab PO SCH (13:27)
[2017-08-28] MEDS: Latanoprost 0.005% Opht SOUTION OU SCH (13:30)
[2017-08-28] MEDS: Albuterol-Ipratrop 3 mg / 0.5 (3 ml) UD INH SCH ×2 (15:42→20:13)
[2017-08-28] MEDS: Acetylcysteine 20% Inhal Soln (4ml) INH SCH (20:11)
[2017-08-28] MEDS: Pravastatin Sodium 20 MG TAB PO SCH (22:37)
[2017-08-29] MEDS: Meropenem 1 GM in Sodium Chloride 0.9% 100 ML IVPB SCH ×2 (01:00→09:21)
[2017-08-29] MEDS: Acetylcysteine 20% Inhal Soln (4ml) INH SCH ×2 (07:58→19:15)
[2017-08-29] MEDS: Albuterol-Ipratrop 3 mg / 0.5 (3 ml) UD INH SCH ×4 (07:59→19:16)
--- NOTE | 2017-08-29 08:35 | CP.PCM.PN ---
Subjective - Date & Time of Evaluation Date of Evaluation: 08/29/17 Time of Evaluation: 08:31 - Subjective Subjective: Awake, cooperative, following commands. Presently receiving aerosol therapy. Vital signs have remained stable. Tolerated bronchoscopy yesterday without incident. Noted was early airways collapse from the level of the julio onwards. No results are available yet. Breath sounds are present bilaterally, diminished markedly on ther right posteriorly. No audible wheezing or bronchial breathing. Dry rales present in the dependant zones of both lungs. Heart sounds are distant, rhythm is regular. SpO2 93% on 2 LPM nasal canula. Continue current antibiotic therapy and aerosol therapy. Physical therapy as tolerated, OOB to chair as tolerated. Await further results of bronchoscopy specimens. If no further diagnostic information, would suggest VATS biopsy and pleurodesis. Objective - Vital Signs/Intake and Output Vital Signs (last 24 hours): Temp Pulse Resp BP Pulse Ox 98.3 F 68 18 124/67 100 08/29/17 05:31 08/29/17 05:31 08/29/17 05:31 08/29/17 05:31 08/29/17 05:31 Intake and Output: 08/28/17 08/29/17 23:59 11:59 Intake Total 650 Output Total 850 Balance -200 - Medications Medications: Current Medications Acetaminophen (Tylenol 325mg Tab) 650 mg PO Q6 PRN PRN Reason: Pain, moderate (4-7) Last Admin: 08/26/17 21:35 Dose: 650 mg Acetylcysteine (Acetylcysteine 20%) 2 ml INH RBID [facility] Last Admin: 08/29/17 07:58 Dose: Not Given Albuterol Sulfate (Albuterol 0.083% Inhal Carmen (2.5 Mg/3 Ml) Ud) 2.5 mg INH ONCE PRN PRN Reason: Shortness of Breath Last Admin: 08/28/17 10:30 Dose: 2.5 mg Albuterol Sulfate (Albuterol 0.083% Inhal Carmen (2.5 Mg/3 Ml) Ud) 2.5 mg INH RQ4 PRN PRN Reason: Shortness of Breath Albuterol/Ipratropium (Duoneb 3 Mg/0.5 Mg (3 Ml) Ud) 3 ml INH RQID [facility] Last Admin: 08/29/17 07:59 Dose: 3 ml Docusate Sodium (Colace) 200 mg PO DAILY [facility] Last Admin: 08/28/17 13:25 Dose: 200 mg Enoxaparin Sodium (Lovenox) 40 mg SC DAILY [facility] PRN Reason: Protocol Last Admin: 08/26/17 09:46 Dose: 40 mg Meropenem 1 gm/ Sodium (Chloride) 100 mls @ 100 mls/hr IVPB Q12@0000,1200 [facility] PRN Reason: Protocol Last Admin: 08/29/17 01:00 Dose: 100 mls/hr Latanoprost (Xalatan Opht) 1 drop OU DAILY [facility] Last Admin: 08/28/17 13:30 Dose: 1 drop Losartan Potassium (Cozaar) 100 mg PO DAILY [facility] Last Admin: 08/28/17 13:26 Dose: 100 mg Memantine (Namenda) 10 mg PO BID [facility] Last Admin: 08/28/17 16:31 Dose: 10 mg Metoprolol Succinate (Toprol Xl) 50 mg PO DAILY [facility] Last Admin: 08/28/17 13:27 Dose: 50 mg Montelukast Sodium (Singulair) 10 mg PO DAILY [facility] Last Admin: 08/28/17 13:29 Dose: 10 mg Nystatin (Nystop Topical Powder) 1 applic TOP TID [facility] Last Admin: 08/28/17 16:32 Dose: 1 applic Pantoprazole Sodium (Protonix Ec Tab) 40 mg PO DAILY [facility] Last Admin: 08/28/17 13:26 Dose: 40 mg Paroxetine HCl (Paxil) 20 mg PO DAILY [facility] Last Admin: 08/28/17 13:29 Dose: 20 mg Pravastatin Sodium (Pravachol) 20 mg PO HS [facility] Last Admin: 08/28/17 22:37 Dose: 20 mg - Labs Labs: 08/27/17 04:30 08/27/17 04:30 PT 12.6 Seconds (9.8-13.1) 08/27/17 10:30 INR 1.1 (0.9-1.2) 08/27/17 10:30 APTT 30.0 Seconds (25.6-37.1) 08/27/17 10:30 Assessment and Plan (1) Pleural effusion Status: Acute (2) Chronic asthma Status: Chronic (3) Dementia Status: Chronic
[2017-08-29] MEDS: Enoxaparin 40 mg Syringe SC SCH (09:21)
[2017-08-29] MEDS: Pantoprazole 40 mg EC Tab PO SCH (09:23)
[2017-08-29] MEDS: Latanoprost 0.005% Opht SOUTION OU SCH (11:26)
[2017-08-29] MEDS: Metoprolol Succinate 50 mg XL Tab PO SCH (11:26)
--- NOTE | 2017-08-29 11:55 | PN ---
DATE: SUBJECTIVE: The patient is seen and examined. The patient is seen for Dr. Gaviria while he is away. The patient remains in Progressive Care Unit with telemetry monitoring. The patient is awake and responsive. The patient feels okay. Denies any specific complaints. No chest pain. No shortness of breath. No cough. PHYSICAL EXAMINATION: GENERAL: The patient is in no acute distress. VITAL SIGNS: Stable. HEART: S1 and S2, normal and regular. LUNGS: Good bilateral air exchange. ABDOMEN: Soft, nontender. EXTREMITIES: No edema. No calf swelling. No tenderness. No acute ischemia. CENTRAL NERVOUS SYSTEM: Essentially unchanged. DIAGNOSTIC DATA: Available diagnostic data reviewed. Telemetry monitoring does not reveal significant arrhythmias. The patient underwent bronchoscopy yesterday. ASSESSMENT AND PLAN: Overall, the patient is medically stable. Plan as ordered. Jose Short MD
[2017-08-29] MEDS: Pravastatin Sodium 20 MG TAB PO SCH (21:07)
[2017-08-30] MEDS: Meropenem 1 GM in Sodium Chloride 0.9% 100 ML IVPB SCH ×2 (00:48→12:07)
[2017-08-30 06:30] LABS: HEMOGLOBIN 10.9 g/dL (12.0-16.0); MEAN CELL VOLUME 78.9 fl (81.0-99.0); MEAN CORPUSCULAR HEMOGLOBIN 25.9 pg (27.0-31.0); MEAN CORPUSCULAR HGB CONC 32.8 g/dL (33.0-37.0); RBC 4.19 Mil/uL (3.80-5.20); RED CELL DISTRIBUTION WIDTH 14.3 % (11.5-14.5); WHITE BLOOD COUNT 8.8 K/uL (4.8-10.8)
[2017-08-30 07:21] LABS: ALBUMIN 3.1 g/dL (3.5-5.0); ALT/SGPT 29 U/L (9-52); AST/SGOT 39 U/L (14-36); BLOOD UREA NITROGEN 20 mg/dl (7-17); CALCIUM 8.6 mg/dL (8.4-10.2); GFR AFRICAN-AMERICAN > 60; GFR NON-AFRICAN AMERICAN > 60
[2017-08-30] MEDS: Albuterol-Ipratrop 3 mg / 0.5 (3 ml) UD INH SCH ×4 (07:40→19:09)
[2017-08-30] MEDS: Acetylcysteine 20% Inhal Soln (4ml) INH SCH ×2 (07:40→19:09)
--- NOTE | 2017-08-30 08:15 | RAD ---
HISTORY: Pleural effusion COMPARISON: Portable chest 08/28/2017. FINDINGS: LUNGS: Persistent airspace disease is seen at the right base with none on the left. Rotation toward the right is noted further. PLEURA: Mild right pleural effusion is unchanged with none on the left. Fluid is seen in the minor fissure. CARDIOVASCULAR: Stable cardiac silhouette identified. OSSEOUS STRUCTURES: No significant abnormalities. VISUALIZED UPPER ABDOMEN: Normal. OTHER FINDINGS: None. IMPRESSION: Persistent airspace disease in limited right pleural effusion right base without significant change. None is seen the left.
[2017-08-30] MEDS: Enoxaparin 40 mg Syringe SC SCH (09:01)
[2017-08-30] MEDS: Pantoprazole 40 mg EC Tab PO SCH (09:02)
[2017-08-30] MEDS: Metoprolol Succinate 50 mg XL Tab PO SCH (09:02)
[2017-08-30] MEDS: Latanoprost 0.005% Opht SOUTION OU SCH (09:03)
--- NOTE | 2017-08-30 09:57 | PN ---
DATE: 08/30/2017 SUBJECTIVE: The patient seen and examined. Interim events noted. Consults noted and appreciated. Pulmonary followup and intervention noted and appreciated. The patient remains in Progressive Care Unit on telemetry monitoring. The patient feels okay. No chest pain, no shortness of breath. Able to ambulate, go to bathroom. PHYSICAL EXAMINATION: GENERAL: The patient is in no acute distress. VITAL SIGNS: Stable. HEART: S1 and S2 normal, regular. LUNGS: Good bilateral air exchange. Occasional wheezing, crepitation posteriorly. ABDOMEN: Soft, nontender. EXTREMITIES: No edema. No calf swelling. No tenderness. No acute ischemia. CENTRAL NERVOUS SYSTEM: Essentially unchanged. DIAGNOSTIC DATA: Available diagnostic data reviewed. Telemetry monitoring does not reveal significant arrhythmia. ASSESSMENT AND PLAN: Overall, the patient's general medical condition is stable and improving. Plan as ordered. Jose Short MD
[2017-08-30] MEDS: Pravastatin Sodium 20 MG TAB PO SCH (21:01)
[2017-08-31] MEDS: Meropenem 1 GM in Sodium Chloride 0.9% 100 ML IVPB SCH ×3 (01:22→23:09)
[2017-08-31] MEDS: Acetylcysteine 20% Inhal Soln (4ml) INH SCH ×2 (07:33→19:01)
[2017-08-31] MEDS: Albuterol-Ipratrop 3 mg / 0.5 (3 ml) UD INH SCH ×4 (07:33→19:01)
[2017-08-31 07:41] LABS: HEMOGLOBIN 10.7 g/dL (12.0-16.0); MEAN CELL VOLUME 78.4 fl (81.0-99.0); MEAN CORPUSCULAR HEMOGLOBIN 25.9 pg (27.0-31.0); MEAN CORPUSCULAR HGB CONC 33.1 g/dL (33.0-37.0); RBC 4.13 Mil/uL (3.80-5.20); RED CELL DISTRIBUTION WIDTH 14.6 % (11.5-14.5); WHITE BLOOD COUNT 7.1 K/uL (4.8-10.8)
--- NOTE | 2017-08-31 07:58 | PN ---
DATE: 08/31/2017 SUBJECTIVE: The patient is seen and examined. Interim events noted. The patient remains in Progressive Care Unit on telemetry monitoring. The patient is not complaining of any specific symptoms. No chest pain. No shortness of breath. PHYSICAL EXAMINATION: GENERAL: The patient is in no acute distress. VITAL SIGNS: Stable. HEART: S1 and S2, normal and regular. LUNGS: Good bilateral air exchange. ABDOMEN: Soft, nontender. EXTREMITIES: No calf swelling. No tenderness. No acute ischemia. CENTRAL NERVOUS SYSTEM: Essentially unchanged. DIAGNOSTIC DATA: Available diagnostic data reviewed. Telemetry monitoring does not reveal significant arrhythmias. ASSESSMENT AND PLAN: Overall, the patient's general medical condition is stable. Plan as ordered. Jose Short MD
[2017-08-31 08:10] LABS: ALB/GLOB RATIO 0.9 (1.0-2.1); ALBUMIN 3.1 g/dL (3.5-5.0); ALT/SGPT 31 U/L (9-52); AST/SGOT 29 U/L (14-36); BLOOD UREA NITROGEN 15 mg/dl (7-17); CALCIUM 8.5 mg/dL (8.4-10.2); GFR AFRICAN-AMERICAN > 60; GFR NON-AFRICAN AMERICAN > 60
[2017-08-31] MEDS: Enoxaparin 40 mg Syringe SC SCH (08:51)
[2017-08-31] MEDS: Pantoprazole 40 mg EC Tab PO SCH (08:52)
[2017-08-31] MEDS: Latanoprost 0.005% Opht SOUTION OU SCH (08:53)
[2017-08-31] MEDS: Metoprolol Succinate 50 mg XL Tab PO SCH (08:53)
[2017-08-31] MEDS: Pravastatin Sodium 20 MG TAB PO SCH (21:02)
[2017-09-01 05:54] LABS: HEMOGLOBIN 10.5 g/dL (12.0-16.0); MEAN CELL VOLUME 78.8 fl (81.0-99.0); MEAN CORPUSCULAR HEMOGLOBIN 25.5 pg (27.0-31.0); MEAN CORPUSCULAR HGB CONC 32.4 g/dL (33.0-37.0); RBC 4.1 Mil/uL (3.80-5.20); RED CELL DISTRIBUTION WIDTH 14.6 % (11.5-14.5); WHITE BLOOD COUNT 7.9 K/uL (4.8-10.8)
[2017-09-01 06:01] LABS: ALT/SGPT 30 U/L (9-52); AST/SGOT 22 U/L (14-36); BLOOD UREA NITROGEN 12 mg/dl (7-17); CALCIUM 8.7 mg/dL (8.4-10.2); GFR AFRICAN-AMERICAN > 60; GFR NON-AFRICAN AMERICAN > 60
[2017-09-01] MEDS: Acetylcysteine 20% Inhal Soln (4ml) INH SCH ×2 (07:33→19:13)
[2017-09-01] MEDS: Albuterol-Ipratrop 3 mg / 0.5 (3 ml) UD INH SCH ×4 (07:33→19:12)
[2017-09-01] MEDS: Metoprolol Succinate 50 mg XL Tab PO SCH (09:59)
[2017-09-01] MEDS: Pantoprazole 40 mg EC Tab PO SCH (10:00)
[2017-09-01] MEDS: Latanoprost 0.005% Opht SOUTION OU SCH (10:01)
--- NOTE | 2017-09-01 10:46 | CP.PCM.PN ---
Subjective - Date & Time of Evaluation Date of Evaluation: 09/01/17 Time of Evaluation: 10:41 - Subjective Subjective: Lying in bed in no acute distress. Coughing non-productively, but no SOB or chest pain. Vital signs have been stable. Awaiting cytology and pathology reports from bronchoscopy. CXR show right basal parenchymal density and re-accumulating effusion. Breath sounds are diminished bilaterally with dry rales. Breath sounds are absent in the right base posteriorly. No dependant edema or cyanosis. No calf tenderness or palpable venous cords. Likely needs VATS with pleural biopsy and pleurodesis. Objective - Vital Signs/Intake and Output Vital Signs (last 24 hours): Temp Pulse Resp BP Pulse Ox 98.1 F 68 18 143/65 100 09/01/17 05:15 09/01/17 10:01 09/01/17 05:15 09/01/17 10:01 09/01/17 05:15 Intake and Output: 08/31/17 09/01/17 23:59 11:59 Intake Total 960 Balance 960 - Medications Medications: Current Medications Acetaminophen (Tylenol 325mg Tab) 650 mg PO Q6 PRN PRN Reason: Pain, moderate (4-7) Last Admin: 09/01/17 01:16 Dose: 650 mg Acetylcysteine (Acetylcysteine 20%) 2 ml INH RBID [facility] Last Admin: 09/01/17 07:33 Dose: 2 ml Albuterol Sulfate (Albuterol 0.083% Inhal Carmen (2.5 Mg/3 Ml) Ud) 2.5 mg INH ONCE PRN PRN Reason: Shortness of Breath Last Admin: 08/28/17 10:30 Dose: 2.5 mg Albuterol Sulfate (Albuterol 0.083% Inhal Carmen (2.5 Mg/3 Ml) Ud) 2.5 mg INH RQ4 PRN PRN Reason: Shortness of Breath Albuterol/Ipratropium (Duoneb 3 Mg/0.5 Mg (3 Ml) Ud) 3 ml INH RQID [facility] Last Admin: 09/01/17 07:33 Dose: 3 ml Docusate Sodium (Colace) 200 mg PO DAILY [facility] Last Admin: 09/01/17 09:59 Dose: 200 mg Meropenem 1 gm/ Sodium (Chloride) 100 mls @ 100 mls/hr IVPB Q12@0000,1200 [facility] PRN Reason: Protocol Last Admin: 08/31/17 23:09 Dose: 100 mls/hr Latanoprost (Xalatan Opht) 1 drop OU DAILY [facility] Last Admin: 09/01/17 10:01 Dose: 1 drop Losartan Potassium (Cozaar) 100 mg PO DAILY [facility] Last Admin: 09/01/17 10:01 Dose: 100 mg Memantine (Namenda) 10 mg PO BID [facility] Last Admin: 09/01/17 09:59 Dose: 10 mg Metoprolol Succinate (Toprol Xl) 50 mg PO DAILY [facility] Last Admin: 09/01/17 09:59 Dose: 50 mg Montelukast Sodium (Singulair) 10 mg PO DAILY [facility] Last Admin: 09/01/17 10:00 Dose: 10 mg Nystatin (Nystop Topical Powder) 1 applic TOP TID [facility] Last Admin: 09/01/17 09:58 Dose: 1 applic Pantoprazole Sodium (Protonix Ec Tab) 40 mg PO DAILY [facility] Last Admin: 09/01/17 10:00 Dose: 40 mg Paroxetine HCl (Paxil) 20 mg PO DAILY [facility] Last Admin: 08/31/17 08:52 Dose: 20 mg Pravastatin Sodium (Pravachol) 20 mg PO HS [facility] Last Admin: 08/31/17 21:02 Dose: 20 mg - Labs Labs: 09/01/17 04:20 09/01/17 04:20 PT 12.6 Seconds (9.8-13.1) 08/27/17 10:30 INR 1.1 (0.9-1.2) 08/27/17 10:30 APTT 30.0 Seconds (25.6-37.1) 08/27/17 10:30 Assessment and Plan (1) Pleural effusion Status: Acute (2) Chronic asthma Status: Chronic (3) Dementia Status: Chronic
--- NOTE | 2017-09-01 11:48 | PN ---
DATE: 09/01/2017 SUBJECTIVE: Patient seen and examined. Interim events noted. Consults noted and appreciated. Patient remains in Progressive Care Unit on telemetry monitoring. Patient feels okay. Denies any specific complaints. No chest pain. No shortness of breath. PHYSICAL EXAMINATION: GENERAL: Patient is in no acute distress. VITAL SIGNS: Stable. HEART: S1 and S2, normal and regular. LUNGS: Good bilateral air exchange. ABDOMEN: Soft, nontender. EXTREMITIES: No edema. No calf swelling. No tenderness. No acute ischemia. CENTRAL NERVOUS SYSTEM: Essentially unchanged. DIAGNOSTIC DATA: Available diagnostic data reviewed. Telemetry monitoring does not reveal significant arrhythmias. ASSESSMENT AND PLAN: Overall, the patient's general medical condition is stable. Plan as ordered. Jose Short MD
[2017-09-01] MEDS: Meropenem 1 GM in Sodium Chloride 0.9% 100 ML IVPB SCH (12:27)
[2017-09-01] MEDS: Pravastatin Sodium 20 MG TAB PO SCH (21:36)
[2017-09-02] MEDS: Meropenem 1 GM in Sodium Chloride 0.9% 100 ML IVPB SCH ×2 (00:19→11:58)
[2017-09-02 05:58] LABS: HEMOGLOBIN 11.6 g/dL (12.0-16.0); MEAN CELL VOLUME 79.5 fl (81.0-99.0); MEAN CORPUSCULAR HGB CONC 31.4 g/dL (33.0-37.0); RBC 4.65 Mil/uL (3.80-5.20); RED CELL DISTRIBUTION WIDTH 14.8 % (11.5-14.5); WHITE BLOOD COUNT 8.8 K/uL (4.8-10.8)
[2017-09-02 06:08] LABS: ALBUMIN 3.2 g/dL (3.5-5.0); ALT/SGPT 31 U/L (9-52); AST/SGOT 25 U/L (14-36); BLOOD UREA NITROGEN 16 mg/dl (7-17); CALCIUM 8.8 mg/dL (8.4-10.2); GFR AFRICAN-AMERICAN > 60; GFR NON-AFRICAN AMERICAN > 60
[2017-09-02] MEDS: Acetylcysteine 20% Inhal Soln (4ml) INH SCH ×2 (08:06→19:12)
[2017-09-02] MEDS: Albuterol-Ipratrop 3 mg / 0.5 (3 ml) UD INH SCH ×4 (08:07→19:12)
--- NOTE | 2017-09-02 08:20 | CP.PCM.PN ---
Subjective - Date & Time of Evaluation Date of Evaluation: 09/02/17 Time of Evaluation: 08:18 - Subjective Subjective: Sen on morning rounds. Lying completely flat in bed w/o difficulty. When asked she claims to have no further cough or sputum. Her vital signs have remained stable and her SpO2 has been >95% on 2 LPM nasal canula. Cytology and histopathology are pending, gram stain and routine culture suggest saprophytic organisms (nasopharyngeal contamination). AFB staining is negative as is JOSE ARMANDO stain. These cultures will require more time. No dullness on percussion of the anterior chest wall, no subcut emphysema. Breath sounds are diminished bilaterally, and absent posteriorly in the dependant right hemithorax. No wheezes or bronchial breath sounds are heard. Few dry rales scattered bilaterally. Heart sounds are distant, rhythm regular. Abdomen is soft with normal BS. No dependant edema, no cyanosis. Agree with thoracic surgery consult at this time. An x-ray of the chest has been requested for today. If fluid is still present on the right, then thoracostomy with pleurodesis, at the least, is indicated. If there is no further diagnostic information as to why the effusion persists, then possibly VATS with biopsy and pleurodesis may be indicated. Diagnoses include: Moderate persistent asthma (long standing) with possible overlap COPD, recurrent right pleural effusion, pleural based infiltrate/sub- segmental atelectasis right lower lobe, swallow dysfunction/possible aspiration. Objective - Vital Signs/Intake and Output Vital Signs (last 24 hours): Temp Pulse Resp BP Pulse Ox 97.1 F L 62 20 121/53 L 98 09/02/17 08:10 09/02/17 08:10 09/02/17 08:10 09/02/17 08:10 09/02/17 08:10 - Medications Medications: Current Medications Acetaminophen (Tylenol 325mg Tab) 650 mg PO Q6 PRN PRN Reason: Pain, moderate (4-7) Last Admin: 09/01/17 21:39 Dose: 650 mg Acetylcysteine (Acetylcysteine 20%) 2 ml INH RBID [facility] Last Admin: 09/02/17 08:06 Dose: 2 ml Albuterol Sulfate (Albuterol 0.083% Inhal Carmen (2.5 Mg/3 Ml) Ud) 2.5 mg INH ONCE PRN PRN Reason: Shortness of Breath Last Admin: 12/14/17 10:30 Dose: 2.5 mg Albuterol Sulfate (Albuterol 0.083% Inhal Carmen (2.5 Mg/3 Ml) Ud) 2.5 mg INH RQ4 PRN PRN Reason: Shortness of Breath Albuterol/Ipratropium (Duoneb 3 Mg/0.5 Mg (3 Ml) Ud) 3 ml INH RQID [facility] Last Admin: 09/02/17 08:07 Dose: 3 ml Docusate Sodium (Colace) 200 mg PO DAILY [facility] Last Admin: 09/01/17 09:59 Dose: 200 mg Meropenem 1 gm/ Sodium (Chloride) 100 mls @ 100 mls/hr IVPB Q12@0000,1200 [facility] PRN Reason: Protocol Last Admin: 09/02/17 00:19 Dose: 100 mls/hr Latanoprost (Xalatan Opht) 1 drop OU DAILY [facility] Last Admin: 09/01/17 10:01 Dose: 1 drop Losartan Potassium (Cozaar) 100 mg PO DAILY [facility] Last Admin: 09/01/17 10:01 Dose: 100 mg Memantine (Namenda) 10 mg PO BID [facility] Last Admin: 09/01/17 19:50 Dose: Not Given Metoprolol Succinate (Toprol Xl) 50 mg PO DAILY [facility] Last Admin: 09/01/17 09:59 Dose: 50 mg Montelukast Sodium (Singulair) 10 mg PO DAILY [facility] Last Admin: 09/01/17 10:00 Dose: 10 mg Nystatin (Nystop Topical Powder) 1 applic TOP TID [facility] Last Admin: 09/01/17 19:50 Dose: Not Given Pantoprazole Sodium (Protonix Ec Tab) 40 mg PO DAILY [facility] Last Admin: 09/01/17 10:00 Dose: 40 mg Paroxetine HCl (Paxil) 20 mg PO DAILY [facility] Last Admin: 09/01/17 12:28 Dose: 20 mg Pravastatin Sodium (Pravachol) 20 mg PO HS [facility] Last Admin: 09/01/17 21:36 Dose: 20 mg - Labs Labs: 09/02/17 04:25 09/02/17 04:25 PT 12.6 Seconds (9.8-13.1) 08/27/17 10:30 INR 1.1 (0.9-1.2) 08/27/17 10:30 APTT 30.0 Seconds (25.6-37.1) 08/27/17 10:30 Assessment and Plan (1) Pleural effusion Status: Acute (2) Chronic asthma Status: Chronic (3) Dementia Status: Chronic
--- NOTE | 2017-09-02 08:56 | RAD ---
HISTORY: pleural effusion COMPARISON: Portable chest 08/30/2017. FINDINGS: LUNGS: A moderate right pleural effusion persists with underlying airspace disease not excluded. Fluid is seen in the minor fissure as well. No definite left pleural effusion or infiltrate. No pneumothorax bilaterally. CARDIOVASCULAR: Cardiac silhouette appears stable. No pulmonary derangement. OSSEOUS STRUCTURES: No significant abnormalities. VISUALIZED UPPER ABDOMEN: Normal. OTHER FINDINGS: None. IMPRESSION: Normal change in moderate right pleural effusion. Underlying airspace disease remains difficult exclude the right base. No left pleural effusion or infiltrate. Continued clinical and radiographic monitoring advised.
--- NOTE | 2017-09-02 09:05 | CP.PCM.PN ---
<Mahi Guerra - Last Filed: 09/02/17 21:20> Subjective - Date & Time of Evaluation Date of Evaluation: 09/02/17 Time of Evaluation: 07:40 - Subjective Subjective: Patient seen and examined with attending Dr Deja patterson. Patient awake alert, oriented reports feeling better, using O2 NC. Patient denies chest pain, SOB, nausea, vomiting, abd pain. Objective - Vital Signs/Intake and Output Vital Signs (last 24 hours): Temp Pulse Resp BP Pulse Ox 97.1 F L 62 20 121/53 L 98 09/02/17 08:10 09/02/17 08:10 09/02/17 08:10 09/02/17 08:10 09/02/17 08:10 - Medications Medications: Current Medications Acetaminophen (Tylenol 325mg Tab) 650 mg PO Q6 PRN PRN Reason: Pain, moderate (4-7) Last Admin: 09/01/17 21:39 Dose: 650 mg Acetylcysteine (Acetylcysteine 20%) 2 ml INH RBID [facility] Last Admin: 09/02/17 08:06 Dose: 2 ml Albuterol Sulfate (Albuterol 0.083% Inhal Carmen (2.5 Mg/3 Ml) Ud) 2.5 mg INH ONCE PRN PRN Reason: Shortness of Breath Last Admin: 08/28/17 10:30 Dose: 2.5 mg Albuterol Sulfate (Albuterol 0.083% Inhal Carmen (2.5 Mg/3 Ml) Ud) 2.5 mg INH RQ4 PRN PRN Reason: Shortness of Breath Albuterol/Ipratropium (Duoneb 3 Mg/0.5 Mg (3 Ml) Ud) 3 ml INH RQID [facility] Last Admin: 09/02/17 08:07 Dose: 3 ml Docusate Sodium (Colace) 200 mg PO DAILY [facility] Last Admin: 09/01/17 09:59 Dose: 200 mg Meropenem 1 gm/ Sodium (Chloride) 100 mls @ 100 mls/hr IVPB Q12@0000,1200 [facility] PRN Reason: Protocol Last Admin: 09/02/17 00:19 Dose: 100 mls/hr Latanoprost (Xalatan Opht) 1 drop OU DAILY [facility] Last Admin: 09/01/17 10:01 Dose: 1 drop Losartan Potassium (Cozaar) 100 mg PO DAILY [facility] Last Admin: 09/01/17 10:01 Dose: 100 mg Memantine (Namenda) 10 mg PO BID [facility] Last Admin: 09/01/17 19:50 Dose: Not Given Metoprolol Succinate (Toprol Xl) 50 mg PO DAILY [facility] Last Admin: 09/01/17 09:59 Dose: 50 mg Montelukast Sodium (Singulair) 10 mg PO DAILY [facility] Last Admin: 09/01/17 10:00 Dose: 10 mg Nystatin (Nystop Topical Powder) 1 applic TOP TID [facility] Last Admin: 09/01/17 19:50 Dose: Not Given Pantoprazole Sodium (Protonix Ec Tab) 40 mg PO DAILY [facility] Last Admin: 09/01/17 10:00 Dose: 40 mg Paroxetine HCl (Paxil) 20 mg PO DAILY [facility] Last Admin: 09/01/17 12:28 Dose: 20 mg Pravastatin Sodium (Pravachol) 20 mg PO HS [facility] Last Admin: 09/01/17 21:36 Dose: 20 mg - Labs Labs: 09/02/17 04:25 09/02/17 04:25 PT 12.6 Seconds (9.8-13.1) 08/27/17 10:30 INR 1.1 (0.9-1.2) 08/27/17 10:30 APTT 30.0 Seconds (25.6-37.1) 08/27/17 10:30 - Constitutional Appears: Non-toxic, No Acute Distress - Head Exam Head Exam: ATRAUMATIC, NORMOCEPHALIC - Eye Exam Eye Exam: Normal appearance - Neck Exam Neck Exam: Normal Inspection - Respiratory Exam Respiratory Exam: Decreased Breath Sounds (right lung base) - Cardiovascular Exam Cardiovascular Exam: REGULAR RHYTHM, +S1, +S2 - GI/Abdominal Exam GI & Abdominal Exam: Soft, Normal Bowel Sounds. absent: Tenderness, Rebound - Extremities Exam Extremities Exam: Normal Inspection. absent: Pedal Edema, Tenderness - Back Exam Back Exam: NORMAL INSPECTION - Neurological Exam Neurological Exam: Alert, Awake - Skin Skin Exam: Intact Assessment and Plan (1) Pleural effusion Assessment & Plan: Right side reccurent -Pulmunology consult appreciated -Cardiothoracic consult appreciated pt will need VATS with lung biopsy and pleurodesis.prior will need cardiac clearance, PFT and ABG room air Status: Acute (2) Chronic asthma Status: Chronic (3) Dementia Status: Chronic (4) DVT prophylaxis Assessment & Plan: -hold while waiting for pleurodesis and lung biopsy Status: Acute <Short,Jose K - Last Filed: 09/12/17 12:17> Objective - Vital Signs/Intake and Output Vital Signs (last 24 hours): Temp Pulse Resp BP Pulse Ox 98.4 F 69 18 124/53 L 98 09/12/17 12:16 09/12/17 12:16 09/12/17 12:16 09/12/17 12:16 09/12/17 12:16 - Medications Medications: Current Medications Acetaminophen (Tylenol 325mg Tab) 650 mg PO Q6 PRN PRN Reason: Pain, moderate (4-7) Last Admin: 09/01/17 21:39 Dose: 650 mg Acetylcysteine (Acetylcysteine 20%) 2 ml INH RBID [facility] Last Admin: 09/12/17 08:10 Dose: 2 ml Albuterol Sulfate (Albuterol 0.083% Inhal Carmen (2.5 Mg/3 Ml) Ud) 2.5 mg INH RQ4 PRN PRN Reason: Shortness of Breath Albuterol/Ipratropium (Duoneb 3 Mg/0.5 Mg (3 Ml) Ud) 3 ml INH RQID [facility] Last Admin: 09/12/17 11:35 Dose: 3 ml Docusate Sodium (Colace) 200 mg PO DAILY [facility] Last Admin: 09/12/17 09:02 Dose: 200 mg Enoxaparin Sodium (Lovenox) 40 mg SC DAILY [facility] PRN Reason: Protocol Furosemide (Lasix) 20 mg PO DAILY [facility] Last Admin: 09/12/17 09:03 Dose: 20 mg Latanoprost (Xalatan Opht) 1 drop OU DAILY [facility] Last Admin: 09/12/17 09:03 Dose: 1 drop Losartan Potassium (Cozaar) 100 mg PO DAILY [facility] Last Admin: 09/12/17 09:04 Dose: 100 mg Memantine (Namenda) 10 mg PO BID [facility] Last Admin: 09/12/17 09:04 Dose: 10 mg Metoprolol Succinate (Toprol Xl) 50 mg PO DAILY [facility] Last Admin: 09/12/17 09:02 Dose: 50 mg Montelukast Sodium (Singulair) 10 mg PO DAILY [facility] Last Admin: 09/12/17 09:02 Dose: 10 mg Nitroglycerin (Nitrostat Sl Tab) 0.4 mg SL Q5M PRN PRN Reason: Pain, moderate (4-7) Last Admin: 09/03/17 16:09 Dose: 0.4 mg Nystatin (Nystop Topical Powder) 1 applic TOP TID [facility] Last Admin: 09/12/17 09:01 Dose: 1 applic Nystatin (Nystatin Oral Susp) 5 ml PO QID [facility] Last Admin: 09/12/17 09:01 Dose: 5 ml Pantoprazole Sodium (Protonix Ec Tab) 40 mg PO DAILY [facility] Last Admin: 09/12/17 09:02 Dose: 40 mg Paroxetine HCl (Paxil) 20 mg PO DAILY [facility] Last Admin: 09/12/17 09:02 Dose: 20 mg Pravastatin Sodium (Pravachol) 20 mg PO HS [facility] Last Admin: 09/11/17 21:37 Dose: 20 mg Spironolactone (Aldactone) 25 mg PO DAILY [facility] Last Admin: 09/12/17 09:01 Dose: 25 mg - Labs Labs: 09/12/17 05:02 09/12/17 05:02 PT 12.9 Seconds (9.8-13.1) 09/12/17 05:02 INR 1.2 (0.9-1.2) 09/12/17 05:02 APTT 32.7 Seconds (25.6-37.1) 09/11/17 09:02 Assessment and Plan - Assessment and Plan (Free Text) Assessment: Patient was personally seen and examined by me in rounds with residents. Available labs and diagnostic data reviewed. Case, patient's condition and management plan discussed with residents in rounds. Agree with resident's progress note. Plan: As ordered.
[2017-09-02] MEDS: Pantoprazole 40 mg EC Tab PO SCH (09:24)
[2017-09-02] MEDS: Latanoprost 0.005% Opht SOUTION OU SCH (09:25)
[2017-09-02] MEDS: Metoprolol Succinate 50 mg XL Tab PO SCH (09:26)
--- NOTE | 2017-09-02 11:31 | CP.PCM.CON ---
History of Present Illness - History of Present Illness History of Present Illness: CT surgery consult note for Dr. Morenita Smith, PGY-1 Pt S & E at bedside. Pt pleasantly demented, history as per EMR, unable to complete a full ROS due to dementia. 86F w/PMH sig for recurrent pleural effusions and hx of pneumonia consulted for R recurrent pleural effusion on imaging. Pt denies SOB, problems breathing, N & V, F & C, chest pain, other complaints. PMH: dementia, HTN, OA/DJD, HLD, hx pleural effusions, GERD, hx pneumonia, diverticulitis PSH: Hysterectomy, kidney surgery, L hip & knee surgery, R thoracentesis () All: PCN SH: No known ETOH, tobacco or illicit drug use Review of Systems - Review of Systems Systems not reviewed;Unavailable: Dementia All systems: reviewed and no additional remarkable complaints except - Constitutional Constitutional: absent: Chills, Fever - Cardiovascular Cardiovascular: absent: Chest Pain - Respiratory Respiratory: Cough - Gastrointestinal Gastrointestinal: absent: Abdominal Pain, Nausea, Vomiting Past Patient History - Past Medical History & Family History Past Medical History?: Yes - Past Social History Smoking Status: Never Smoked Chewing Tobacco Use: No Cigar Use: No Alcohol: None Drugs: Denies - CARDIAC Hx Hypercholesterolemia: Yes Hx Hypertension: Yes - PULMONARY Hx Asthma: Yes Hx Bronchitis: Yes Hx Chronic Obstructive Pulmonary Disease (COPD): Yes Hx Pneumonia: Yes - NEUROLOGICAL Hx Dementia: Yes - HEENT Hx HEENT Problems: No - RENAL Hx Chronic Kidney Disease: No - ENDOCRINE/METABOLIC Hx Endocrine Disorders: No - HEMATOLOGICAL/ONCOLOGICAL Hx Anemia: Yes Hx Human Immunodeficiency Virus (HIV): No - INTEGUMENTARY Hx Dermatological Problems: No - MUSCULOSKELETAL/RHEUMATOLOGICAL Hx Arthritis: Yes Hx Osteoporosis: Yes - GASTROINTESTINAL Hx Diverticulitis: Yes - GENITOURINARY/GYNECOLOGICAL Hx Genitourinary Disorders: No - PSYCHIATRIC Hx Depression: Yes - SURGICAL HISTORY Hx Surgeries: Yes Hx Hysterectomy: Yes Hx Orthopedic Surgery: Yes Other/Comment: Kidney Surgery, Left Hip Replacement, left knee surgery - ANESTHESIA Hx Anesthesia: Yes Hx Anesthesia Reactions: No Hx Malignant Hyperthermia: No Has any member of the family had a problem w/ anesthesia?: No Meds Allergies/Adverse Reactions: Allergies Allergy/AdvReac Type Severity Reaction Status Date / Time No Known Allergies Allergy Verified 04/03/15 20:49 - Medications Medications: Current Medications Acetaminophen (Tylenol 325mg Tab) 650 mg PO Q6 PRN PRN Reason: Pain, moderate (4-7) Last Admin: 09/01/17 21:39 Dose: 650 mg Acetylcysteine (Acetylcysteine 20%) 2 ml INH RBID [facility] Last Admin: 09/02/17 08:06 Dose: 2 ml Albuterol Sulfate (Albuterol 0.083% Inhal Carmen (2.5 Mg/3 Ml) Ud) 2.5 mg INH ONCE PRN PRN Reason: Shortness of Breath Last Admin: 08/28/17 10:30 Dose: 2.5 mg Albuterol Sulfate (Albuterol 0.083% Inhal Carmen (2.5 Mg/3 Ml) Ud) 2.5 mg INH RQ4 PRN PRN Reason: Shortness of Breath Albuterol/Ipratropium (Duoneb 3 Mg/0.5 Mg (3 Ml) Ud) 3 ml INH RQID [facility] Last Admin: 09/02/17 08:07 Dose: 3 ml Docusate Sodium (Colace) 200 mg PO DAILY [facility] Last Admin: 09/02/17 09:24 Dose: 200 mg Meropenem 1 gm/ Sodium (Chloride) 100 mls @ 100 mls/hr IVPB Q12@0000,1200 [facility] PRN Reason: Protocol Last Admin: 09/02/17 00:19 Dose: 100 mls/hr Latanoprost (Xalatan Opht) 1 drop OU DAILY [facility] Last Admin: 09/02/17 09:25 Dose: 1 drop Losartan Potassium (Cozaar) 100 mg PO DAILY [facility] Last Admin: 09/02/17 09:24 Dose: 100 mg Memantine (Namenda) 10 mg PO BID [facility] Last Admin: 09/02/17 09:24 Dose: 10 mg Metoprolol Succinate (Toprol Xl) 50 mg PO DAILY [facility] Last Admin: 09/02/17 09:26 Dose: 50 mg Montelukast Sodium (Singulair) 10 mg PO DAILY [facility] Last Admin: 09/02/17 09:25 Dose: 10 mg Nystatin (Nystop Topical Powder) 1 applic TOP TID [facility] Last Admin: 09/02/17 09:25 Dose: 1 applic Pantoprazole Sodium (Protonix Ec Tab) 40 mg PO DAILY [facility] Last Admin: 09/02/17 09:24 Dose: 40 mg Paroxetine HCl (Paxil) 20 mg PO DAILY [facility] Last Admin: 09/02/17 09:24 Dose: 20 mg Pravastatin Sodium (Pravachol) 20 mg PO HS [facility] Last Admin: 09/01/17 21:36 Dose: 20 mg Physical Exam - Constitutional Appears: Non-toxic, No Acute Distress - Head Exam Head Exam: ATRAUMATIC, NORMAL INSPECTION, NORMOCEPHALIC - Eye Exam Eye Exam: EOMI, Normal appearance - ENT Exam ENT Exam: Mucous Membranes Moist, Normal Exam - Neck Exam Neck exam: Positive for: Full Rom, Normal Inspection - Respiratory Exam Respiratory Exam: Decreased Breath Sounds (Right base), NORMAL BREATHING PATTERN. absent: Accessory Muscle Use, Chest Wall Tenderness, Rales, Rhonchi, Wheezes, Respiratory Distress - Cardiovascular Exam Cardiovascular Exam: REGULAR RHYTHM, +S1, +S2 - GI/Abdominal Exam GI & Abdominal Exam: Normal Bowel Sounds, Soft. absent: Distended, Firm, Guarding, Tenderness - Extremities Exam Extremities exam: Positive for: normal inspection - Neurological Exam Neurological exam: Alert, CN II-XII Intact Additional comments: pleasantly demented - Psychiatric Exam Psychiatric exam: Normal Affect, Normal Mood - Skin Skin Exam: Dry, Intact, Normal Color, Warm Results - Vital Signs Recent Vital Signs: Last Vital Signs Temp 97.1 F L 09/02/17 08:10 Pulse 62 09/02/17 09:26 Resp 20 09/02/17 08:10 BP 121/53 L 09/02/17 09:26 Pulse Ox 98 09/02/17 08:10 - Labs Result Diagrams: 09/02/17 04:25 09/02/17 04:25 Labs: Laboratory Results - last 24 hr 09/02/17 09/02/17 04:25 04:25 WBC 8.8 RBC 4.65 Hgb 11.6 L Hct 37.0 MCV 79.5 L MCH 25.0 L MCHC 31.4 L RDW 14.8 H Plt Count 171 Sodium 141 Potassium 4.7 Chloride 102 Carbon Dioxide 31 H Anion Gap 13 BUN 16 Creatinine 0.7 Est GFR ( Amer) > 60 Est GFR (Non-Af Amer) > 60 Random Glucose 87 Calcium 8.8 Total Bilirubin 0.3 AST 25 ALT 31 Alkaline Phosphatase 76 Total Protein 6.3 Albumin 3.2 L Globulin 3.1 Albumin/Globulin Ratio 1.0 Assessment & Plan - Assessment and Plan (Free Text) Assessment: 86F w/PMH sig for recurrent pleural effusions, consulted for Right pleural effusion Plan: CT chest Further recs based on imaging and as per attending Will DW attending Sarah, PGY-1 - Date & Time Date: 09/02/17 Time: 11:35
[2017-09-02] MEDS ORDERED: Iohexol 300 100 ML IJ ONE (15:20)
[2017-09-02 16:31] LABS: ABG ALLEN TEST YES; ARTERIAL BLOOD GAS HCO3 31.9 mmol/L (21-28); ARTERIAL BLOOD GAS HEMOGLOBIN 11.3 g/dL (11.7-17.4); ARTERIAL BLOOD GAS O2 CAPACITY 15.5 mL/dL (16-24); ARTERIAL BLOOD GAS PCO2 48 mm/Hg (35-45); ARTERIAL BLOOD GAS PH 7.46 (7.35-7.45); ARTERIAL BLOOD GAS PO2 71 mm/Hg (80-100); ARTERIAL BLOOD GAS TCO2 35.6 mmol/L (22-28)
--- NOTE | 2017-09-02 17:09 | CT ---
PROCEDURE: CT Chest with contrast HISTORY: pleural effusion eval COMPARISON: None. TECHNIQUE: Contiguous axial images were obtained through the chest with intravenous contrast enhancement. Sagittal and coronal reconstructions were performed. IV contrast: 90 mL Omnipaque 300 Radiation dose (DLP): 653.51 mGy-cm. This CT exam was performed using one or more of the following dose reduction techniques: Automated exposure control, adjustment of the mA and/or kV according to patient size, and/or use of iterative reconstruction technique. FINDINGS: LUNGS: There is redemonstration of comprehensive atelectasis in the right lower lobe. There is a stable calcified granuloma in the atelectatic right lower lobe. There has been no change in small scattered nodules in the left upper lobe. No focal consolidation in the left lung. There is subsegmental atelectasis in both lower lobes. There are no endobronchial lesions. MEDIASTINUM: The aorta is not dilated. There is no evidence of aortic dissection. There is mild cardiomegaly and trace pericardial effusion. There are atherosclerotic calcifications in the coronary arteries. No pathologic mediastinal or hilar lymphadenopathy. PLEURA: Since the prior examination, there is interval increase in size of large right pleural effusion. There is also small loculated fluid in the minor fissure and loculated fluid in the major fissure. No left pleural effusion. No pneumothorax. BONES: No fracture. No destructive lesion. There is diffuse bone demineralization and multilevel degenerative disc disease with UPPER ABDOMEN: Grossly unremarkable. OTHER FINDINGS: There is a small sliding hiatal hernia. IMPRESSION: 1. Interval increase in size of large right pleural effusion with loculated fluid in the minor an major fissure. Compressive atelectasis in the right lower lobe. 2. No change in tiny scattered nodules in the left upper lobe. 3. Mild cardiomegaly and trace pericardial effusion.
[2017-09-02] MEDS: Pravastatin Sodium 20 MG TAB PO SCH (21:19)
[2017-09-03] MEDS: Meropenem 1 GM in Sodium Chloride 0.9% 100 ML IVPB SCH ×2 (00:20→12:20)
[2017-09-03 05:32] LABS: HEMOGLOBIN 10.7 g/dL (12.0-16.0); MEAN CELL VOLUME 78.7 fl (81.0-99.0); MEAN CORPUSCULAR HEMOGLOBIN 25.5 pg (27.0-31.0); MEAN CORPUSCULAR HGB CONC 32.3 g/dL (33.0-37.0); RBC 4.22 Mil/uL (3.80-5.20); RED CELL DISTRIBUTION WIDTH 14.8 % (11.5-14.5); WHITE BLOOD COUNT 7.9 K/uL (4.8-10.8)
[2017-09-03 06:00] LABS: ALBUMIN 3.1 g/dL (3.5-5.0); ALT/SGPT 39 U/L (9-52); AST/SGOT 31 U/L (14-36); BLOOD UREA NITROGEN 13 mg/dl (7-17); CALCIUM 8.9 mg/dL (8.4-10.2); GFR AFRICAN-AMERICAN > 60; GFR NON-AFRICAN AMERICAN > 60
[2017-09-03] MEDS: Albuterol-Ipratrop 3 mg / 0.5 (3 ml) UD INH SCH ×4 (07:47→19:13)
[2017-09-03] MEDS: Acetylcysteine 20% Inhal Soln (4ml) INH SCH ×2 (07:47→19:13)
[2017-09-03] MEDS: Latanoprost 0.005% Opht SOUTION OU SCH (08:35)
[2017-09-03] MEDS: Metoprolol Succinate 50 mg XL Tab PO SCH (08:36)
[2017-09-03] MEDS: Pantoprazole 40 mg EC Tab PO SCH (08:37)
--- NOTE | 2017-09-03 08:46 | CP.PCM.PN ---
Subjective - Date & Time of Evaluation Date of Evaluation: 09/03/17 Time of Evaluation: 08:40 - Subjective Subjective: Seen on morning rounds, lying in bed in no distress. Occasional non-productive cough noted. Vital signs remain stable. SpO2 90% on room air at rest. Surgical eval noted. No cyanosis or dependant edema. Neck supple with midline trachea. No JVD or carotid bruit. No dullness or subcut emphysema anterior chest wall. Breath sounds diminished but present bilaterally. Breath sounds absent in the right base posterorly. Scattered dry rales and occasional rhonchi. No audible wheezing or bronchial breathing. Repeat CT chest done yesterday with contrast showing re-accumulating effusion with 'compressive atelectasis' in the right base. I do feel this may indeed represent a right basilar infiltrate other than simple passive atelectasis. This finding has been seen on prior films earlier this year and did not improve after thoracentesis. Cardiac workup has returned with good LV function and mild mitral regurgitation. Final results from recent bronchoscopy have not returned yet, and pathology was called this morning to see if anything was available yet. I am hopeful there will be more results later today. Objective - Vital Signs/Intake and Output Vital Signs (last 24 hours): Temp Pulse Resp BP Pulse Ox 98.2 F 65 20 139/59 L 95 09/03/17 08:30 09/03/17 08:37 09/03/17 08:30 09/03/17 08:37 09/03/17 08:30 Intake and Output: 09/02/17 09/03/17 23:59 11:59 Intake Total 850 Balance 850 - Medications Medications: Current Medications Acetaminophen (Tylenol 325mg Tab) 650 mg PO Q6 PRN PRN Reason: Pain, moderate (4-7) Last Admin: 09/01/17 21:39 Dose: 650 mg Acetylcysteine (Acetylcysteine 20%) 2 ml INH RBID [facility] Last Admin: 09/03/17 07:47 Dose: 2 ml Albuterol Sulfate (Albuterol 0.083% Inhal Carmen (2.5 Mg/3 Ml) Ud) 2.5 mg INH ONCE PRN PRN Reason: Shortness of Breath Last Admin: 08/28/17 10:30 Dose: 2.5 mg Albuterol Sulfate (Albuterol 0.083% Inhal Carmen (2.5 Mg/3 Ml) Ud) 2.5 mg INH RQ4 PRN PRN Reason: Shortness of Breath Albuterol/Ipratropium (Duoneb 3 Mg/0.5 Mg (3 Ml) Ud) 3 ml INH RQID [facility] Last Admin: 09/03/17 07:47 Dose: 3 ml Docusate Sodium (Colace) 200 mg PO DAILY [facility] Last Admin: 09/03/17 08:35 Dose: 200 mg Meropenem 1 gm/ Sodium (Chloride) 100 mls @ 100 mls/hr IVPB Q12@0000,1200 [facility] PRN Reason: Protocol Last Admin: 09/03/17 00:20 Dose: 100 mls/hr Latanoprost (Xalatan Opht) 1 drop OU DAILY [facility] Last Admin: 09/03/17 08:35 Dose: 1 drop Losartan Potassium (Cozaar) 100 mg PO DAILY [facility] Last Admin: 09/03/17 08:37 Dose: 100 mg Memantine (Namenda) 10 mg PO BID [facility] Last Admin: 09/03/17 08:37 Dose: 10 mg Metoprolol Succinate (Toprol Xl) 50 mg PO DAILY [facility] Last Admin: 09/03/17 08:36 Dose: 50 mg Montelukast Sodium (Singulair) 10 mg PO DAILY [facility] Last Admin: 09/03/17 08:38 Dose: 10 mg Nystatin (Nystop Topical Powder) 1 applic TOP TID [facility] Last Admin: 09/03/17 08:35 Dose: 1 applic Pantoprazole Sodium (Protonix Ec Tab) 40 mg PO DAILY [facility] Last Admin: 09/03/17 08:37 Dose: 40 mg Paroxetine HCl (Paxil) 20 mg PO DAILY [facility] Last Admin: 09/03/17 08:36 Dose: 20 mg Pravastatin Sodium (Pravachol) 20 mg PO HS [facility] Last Admin: 09/02/17 21:19 Dose: 20 mg - Labs Labs: 09/03/17 04:50 09/03/17 04:50 PT 12.6 Seconds (9.8-13.1) 08/27/17 10:30 INR 1.1 (0.9-1.2) 08/27/17 10:30 APTT 30.0 Seconds (25.6-37.1) 08/27/17 10:30 Assessment and Plan (1) Pleural effusion Status: Acute (2) Chronic asthma Status: Chronic (3) Dementia Status: Chronic
--- NOTE | 2017-09-03 09:24 | CP.PCM.PN ---
<Mahi Guerra - Last Filed: 09/03/17 14:53> Subjective - Date & Time of Evaluation Date of Evaluation: 09/03/17 Time of Evaluation: 07:40 - Subjective Subjective: Patient seen and examined with attending Dr Deja patterson. Patient awake alert, with dementia, oriented reports feeling better.Denies SOB,chest pain, SOB, nausea, vomiting, abd pain. Pt explained in Danish that will be done PFT today and what she should do during procedure. pt verbalized understanding and looks like will cooperate. Objective - Vital Signs/Intake and Output Vital Signs (last 24 hours): Temp Pulse Resp BP Pulse Ox 98.2 F 65 20 139/59 L 95 09/03/17 08:30 09/03/17 08:37 09/03/17 08:30 09/03/17 08:37 09/03/17 08:30 - Medications Medications: Current Medications Acetaminophen (Tylenol 325mg Tab) 650 mg PO Q6 PRN PRN Reason: Pain, moderate (4-7) Last Admin: 09/01/17 21:39 Dose: 650 mg Acetylcysteine (Acetylcysteine 20%) 2 ml INH RBID [facility] Last Admin: 09/03/17 07:47 Dose: 2 ml Albuterol Sulfate (Albuterol 0.083% Inhal Carmen (2.5 Mg/3 Ml) Ud) 2.5 mg INH ONCE PRN PRN Reason: Shortness of Breath Last Admin: 08/28/17 10:30 Dose: 2.5 mg Albuterol Sulfate (Albuterol 0.083% Inhal Carmen (2.5 Mg/3 Ml) Ud) 2.5 mg INH RQ4 PRN PRN Reason: Shortness of Breath Albuterol/Ipratropium (Duoneb 3 Mg/0.5 Mg (3 Ml) Ud) 3 ml INH RQID [facility] Last Admin: 09/03/17 07:47 Dose: 3 ml Docusate Sodium (Colace) 200 mg PO DAILY [facility] Last Admin: 09/03/17 08:35 Dose: 200 mg Meropenem 1 gm/ Sodium (Chloride) 100 mls @ 100 mls/hr IVPB Q12@0000,1200 [facility] PRN Reason: Protocol Last Admin: 09/03/17 00:20 Dose: 100 mls/hr Latanoprost (Xalatan Opht) 1 drop OU DAILY [facility] Last Admin: 09/03/17 08:35 Dose: 1 drop Losartan Potassium (Cozaar) 100 mg PO DAILY [facility] Last Admin: 09/03/17 08:37 Dose: 100 mg Memantine (Namenda) 10 mg PO BID [facility] Last Admin: 09/03/17 08:37 Dose: 10 mg Metoprolol Succinate (Toprol Xl) 50 mg PO DAILY [facility] Last Admin: 09/03/17 08:36 Dose: 50 mg Montelukast Sodium (Singulair) 10 mg PO DAILY [facility] Last Admin: 09/03/17 08:38 Dose: 10 mg Nystatin (Nystop Topical Powder) 1 applic TOP TID [facility] Last Admin: 09/03/17 08:35 Dose: 1 applic Pantoprazole Sodium (Protonix Ec Tab) 40 mg PO DAILY [facility] Last Admin: 09/03/17 08:37 Dose: 40 mg Paroxetine HCl (Paxil) 20 mg PO DAILY [facility] Last Admin: 09/03/17 08:36 Dose: 20 mg Pravastatin Sodium (Pravachol) 20 mg PO HS [facility] Last Admin: 09/02/17 21:19 Dose: 20 mg - Labs Labs: 09/03/17 04:50 09/03/17 04:50 PT 12.6 Seconds (9.8-13.1) 08/27/17 10:30 INR 1.1 (0.9-1.2) 08/27/17 10:30 APTT 30.0 Seconds (25.6-37.1) 08/27/17 10:30 - Constitutional Appears: No Acute Distress - Head Exam Head Exam: ATRAUMATIC, NORMOCEPHALIC - Eye Exam Eye Exam: Normal appearance - ENT Exam ENT Exam: Normal Exam - Neck Exam Neck Exam: Normal Inspection - Respiratory Exam Respiratory Exam: Decreased Breath Sounds. absent: Rhonchi, Wheezes Additional comments: Right lung base - Cardiovascular Exam Cardiovascular Exam: REGULAR RHYTHM, +S1, +S2 - GI/Abdominal Exam GI & Abdominal Exam: Soft, Normal Bowel Sounds. absent: Tenderness - Extremities Exam Extremities Exam: Normal Inspection. absent: Pedal Edema - Back Exam Back Exam: NORMAL INSPECTION - Neurological Exam Neurological Exam: Alert, Awake, Oriented x3 - Psychiatric Exam Psychiatric exam: Normal Affect, Normal Mood - Skin Skin Exam: Dry, Intact Assessment and Plan (1) Pleural effusion Status: Acute (2) Chronic asthma Status: Chronic (3) Dementia Status: Chronic (4) DVT prophylaxis Status: Acute - Assessment and Plan (Free Text) Plan: Assessment and Plan (1) Pleural effusion Assessment & Plan: Right side recurrent -Pulmunology consult appreciated -Cardiothoracic consult appreciated pt will need VATS with lung biopsy and pleurodesis.prior will need cardiac clearance, PFT and ABG room air -PFT to be done today -Cardiology consult suggested for clearance Status: Acute (2) Chronic asthma Status: Chronic (3) Dementia Status: Chronic (4) DVT prophylaxis Assessment & Plan: -Lovenox 40 mg sc Status: Acute <Short,Jose K - Last Filed: 09/12/17 12:23> Objective - Vital Signs/Intake and Output Vital Signs (last 24 hours): Temp Pulse Resp BP Pulse Ox 98.4 F 69 18 124/53 L 98 09/12/17 12:16 09/12/17 12:16 09/12/17 12:16 09/12/17 12:16 09/12/17 12:16 - Medications Medications: Current Medications Acetaminophen (Tylenol 325mg Tab) 650 mg PO Q6 PRN PRN Reason: Pain, moderate (4-7) Last Admin: 09/01/17 21:39 Dose: 650 mg Acetylcysteine (Acetylcysteine 20%) 2 ml INH RBID [facility] Last Admin: 09/12/17 08:10 Dose: 2 ml Albuterol Sulfate (Albuterol 0.083% Inhal Carmen (2.5 Mg/3 Ml) Ud) 2.5 mg INH RQ4 PRN PRN Reason: Shortness of Breath Albuterol/Ipratropium (Duoneb 3 Mg/0.5 Mg (3 Ml) Ud) 3 ml INH RQID [facility] Last Admin: 09/12/17 11:35 Dose: 3 ml Docusate Sodium (Colace) 200 mg PO DAILY [facility] Last Admin: 09/12/17 09:02 Dose: 200 mg Enoxaparin Sodium (Lovenox) 40 mg SC DAILY [facility] PRN Reason: Protocol Furosemide (Lasix) 20 mg PO DAILY [facility] Last Admin: 09/12/17 09:03 Dose: 20 mg Latanoprost (Xalatan Opht) 1 drop OU DAILY [facility] Last Admin: 09/12/17 09:03 Dose: 1 drop Losartan Potassium (Cozaar) 100 mg PO DAILY [facility] Last Admin: 09/12/17 09:04 Dose: 100 mg Memantine (Namenda) 10 mg PO BID [facility] Last Admin: 09/12/17 09:04 Dose: 10 mg Metoprolol Succinate (Toprol Xl) 50 mg PO DAILY [facility] Last Admin: 09/12/17 09:02 Dose: 50 mg Montelukast Sodium (Singulair) 10 mg PO DAILY [facility] Last Admin: 09/12/17 09:02 Dose: 10 mg Nitroglycerin (Nitrostat Sl Tab) 0.4 mg SL Q5M PRN PRN Reason: Pain, moderate (4-7) Last Admin: 09/03/17 16:09 Dose: 0.4 mg Nystatin (Nystop Topical Powder) 1 applic TOP TID [facility] Last Admin: 09/12/17 09:01 Dose: 1 applic Nystatin (Nystatin Oral Susp) 5 ml PO QID [facility] Last Admin: 09/12/17 09:01 Dose: 5 ml Pantoprazole Sodium (Protonix Ec Tab) 40 mg PO DAILY [facility] Last Admin: 09/12/17 09:02 Dose: 40 mg Paroxetine HCl (Paxil) 20 mg PO DAILY [facility] Last Admin: 09/12/17 09:02 Dose: 20 mg Pravastatin Sodium (Pravachol) 20 mg PO HS [facility] Last Admin: 09/11/17 21:37 Dose: 20 mg Spironolactone (Aldactone) 25 mg PO DAILY [facility] Last Admin: 09/12/17 09:01 Dose: 25 mg - Labs Labs: 09/12/17 05:02 09/12/17 05:02 PT 12.9 Seconds (9.8-13.1) 09/12/17 05:02 INR 1.2 (0.9-1.2) 09/12/17 05:02 APTT 32.7 Seconds (25.6-37.1) 09/11/17 09:02 Assessment and Plan - Assessment and Plan (Free Text) Assessment: Patient was personally seen and examined by me in rounds with residents. Available labs and diagnostic data reviewed. Case, patient's condition and management plan discussed with residents in rounds. Agree with resident's progress note. Plan: As ordered.
--- NOTE | 2017-09-03 11:23 | CP.PCM.PN ---
Subjective - Date & Time of Evaluation Date of Evaluation: 09/03/17 Time of Evaluation: 10:45 - Subjective Subjective: CT surgery progress note for Dr. Morenita Smith, PGY-1 Pt S & E at bedside. Pt continues to be pleasantly demented, no complaints. Denies SOB, problems breathing, N & V, F & C, tolerating diet. Spoke with Respiratory therapy- pt will have PFTs later today. ABG done. Objective - Vital Signs/Intake and Output Vital Signs (last 24 hours): Temp Pulse Resp BP Pulse Ox 98.2 F 65 20 139/59 L 95 09/03/17 08:30 09/03/17 08:37 09/03/17 08:30 09/03/17 08:37 09/03/17 08:30 - Medications Medications: Current Medications Acetaminophen (Tylenol 325mg Tab) 650 mg PO Q6 PRN PRN Reason: Pain, moderate (4-7) Last Admin: 09/01/17 21:39 Dose: 650 mg Acetylcysteine (Acetylcysteine 20%) 2 ml INH RBID [facility] Last Admin: 09/03/17 07:47 Dose: 2 ml Albuterol Sulfate (Albuterol 0.083% Inhal Carmen (2.5 Mg/3 Ml) Ud) 2.5 mg INH ONCE PRN PRN Reason: Shortness of Breath Last Admin: 08/28/17 10:30 Dose: 2.5 mg Albuterol Sulfate (Albuterol 0.083% Inhal Carmen (2.5 Mg/3 Ml) Ud) 2.5 mg INH RQ4 PRN PRN Reason: Shortness of Breath Albuterol/Ipratropium (Duoneb 3 Mg/0.5 Mg (3 Ml) Ud) 3 ml INH RQID [facility] Last Admin: 09/03/17 07:47 Dose: 3 ml Docusate Sodium (Colace) 200 mg PO DAILY [facility] Last Admin: 09/03/17 08:35 Dose: 200 mg Meropenem 1 gm/ Sodium (Chloride) 100 mls @ 100 mls/hr IVPB Q12@0000,1200 [facility] PRN Reason: Protocol Last Admin: 09/03/17 00:20 Dose: 100 mls/hr Latanoprost (Xalatan Opht) 1 drop OU DAILY [facility] Last Admin: 09/03/17 08:35 Dose: 1 drop Losartan Potassium (Cozaar) 100 mg PO DAILY [facility] Last Admin: 09/03/17 08:37 Dose: 100 mg Memantine (Namenda) 10 mg PO BID [facility] Last Admin: 09/03/17 08:37 Dose: 10 mg Metoprolol Succinate (Toprol Xl) 50 mg PO DAILY [facility] Last Admin: 09/03/17 08:36 Dose: 50 mg Montelukast Sodium (Singulair) 10 mg PO DAILY [facility] Last Admin: 09/03/17 08:38 Dose: 10 mg Nystatin (Nystop Topical Powder) 1 applic TOP TID [facility] Last Admin: 09/03/17 08:35 Dose: 1 applic Pantoprazole Sodium (Protonix Ec Tab) 40 mg PO DAILY [facility] Last Admin: 09/03/17 08:37 Dose: 40 mg Paroxetine HCl (Paxil) 20 mg PO DAILY [facility] Last Admin: 09/03/17 08:36 Dose: 20 mg Pravastatin Sodium (Pravachol) 20 mg PO HS [facility] Last Admin: 09/02/17 21:19 Dose: 20 mg - Labs Labs: 09/03/17 04:50 09/03/17 04:50 PT 12.6 Seconds (9.8-13.1) 08/27/17 10:30 INR 1.1 (0.9-1.2) 08/27/17 10:30 APTT 30.0 Seconds (25.6-37.1) 08/27/17 10:30 - Constitutional Appears: Non-toxic, No Acute Distress - Head Exam Head Exam: ATRAUMATIC, NORMAL INSPECTION, NORMOCEPHALIC - Eye Exam Eye Exam: EOMI, Normal appearance - ENT Exam ENT Exam: Mucous Membranes Moist, Normal Exam - Respiratory Exam Respiratory Exam: Decreased Breath Sounds (Right base), Clear to Ausculation Bilateral, Rhonchi, NORMAL BREATHING PATTERN. absent: Rales, Wheezes, Respiratory Distress, Stridor - Cardiovascular Exam Cardiovascular Exam: REGULAR RHYTHM, +S1, +S2 - GI/Abdominal Exam GI & Abdominal Exam: Soft, Normal Bowel Sounds. absent: Tenderness - Extremities Exam Extremities Exam: Pedal Edema (bilateral) - Neurological Exam Neurological Exam: Alert, Awake, CN II-XII Intact. absent: Oriented x3 Additional comments: demented - Psychiatric Exam Psychiatric exam: Normal Affect, Normal Mood - Skin Skin Exam: Dry, Intact, Normal Color, Warm Assessment and Plan - Assessment and Plan (Free Text) Assessment: 86F w/recurrent R pleural effusion Plan: Needs to complete cardiac clearance Plan for VATS sometime next week ABG done PFTs to be done later today DW attending Sarah, PGY-1
[2017-09-03] MEDS: Enoxaparin 40 mg Syringe SC SCH (16:10)
--- NOTE | 2017-09-03 16:14 | CP.PCM.PN ---
Subjective - Date & Time of Evaluation Date of Evaluation: 09/03/17 Time of Evaluation: 16:46 - Subjective Subjective: PGY2 progress note for cardiology, Dr. Fernandez 86 year old female with past medical history of HTn, HLD, OS, hx of pneumonia presented to hospital after PCP found pleural effusion on CXR. Cardiology was consulted for pre-op clearance for right lung VATS procedure. During the hospital stay, patient had CT guided right thoracocentesis with fluid only showing lymphocytes. Bronchoscopy was also done which was negative for malignancy. Patient states that at home, she is able to ambulate a few steps with the help of a cane. Patient denies having any previous cardiac workup. While resting in bed, patient denies having any CP, SOB, abd pain, N/V/D/C. Patient was asked to stand up and walk around the room. With only standing up, patient developed chest tightness. 12 point ROS are negative except for the above mentioned. PMHx: stated above PSH: Hysterectomy, kidney surgery, L hip & knee surgery, R thoracentesis () All: PCN SH: No known ETOH, tobacco or illicit drug use PMDl: Martinez Hameed MD Objective - Vital Signs/Intake and Output Vital Signs (last 24 hours): Temp Pulse Resp BP Pulse Ox 97.6 F 60 18 139/73 94 L 09/03/17 13:00 09/03/17 13:00 09/03/17 13:00 09/03/17 13:00 09/03/17 13:00 - Medications Medications: Current Medications Acetaminophen (Tylenol 325mg Tab) 650 mg PO Q6 PRN PRN Reason: Pain, moderate (4-7) Last Admin: 09/01/17 21:39 Dose: 650 mg Acetylcysteine (Acetylcysteine 20%) 2 ml INH RBID [facility] Last Admin: 09/03/17 07:47 Dose: 2 ml Albuterol Sulfate (Albuterol 0.083% Inhal Carmen (2.5 Mg/3 Ml) Ud) 2.5 mg INH ONCE PRN PRN Reason: Shortness of Breath Last Admin: 08/28/17 10:30 Dose: 2.5 mg Albuterol Sulfate (Albuterol 0.083% Inhal Carmen (2.5 Mg/3 Ml) Ud) 2.5 mg INH RQ4 PRN PRN Reason: Shortness of Breath Albuterol/Ipratropium (Duoneb 3 Mg/0.5 Mg (3 Ml) Ud) 3 ml INH RQID [facility] Last Admin: 09/03/17 16:06 Dose: 3 ml Docusate Sodium (Colace) 200 mg PO DAILY [facility] Last Admin: 09/03/17 08:35 Dose: 200 mg Enoxaparin Sodium (Lovenox) 40 mg SC DAILY [facility] PRN Reason: Protocol Last Admin: 09/03/17 16:10 Dose: 40 mg Meropenem 1 gm/ Sodium (Chloride) 100 mls @ 100 mls/hr IVPB Q12@0000,1200 [facility] PRN Reason: Protocol Last Admin: 09/03/17 12:20 Dose: 100 mls/hr Latanoprost (Xalatan Opht) 1 drop OU DAILY [facility] Last Admin: 09/03/17 08:35 Dose: 1 drop Losartan Potassium (Cozaar) 100 mg PO DAILY [facility] Last Admin: 09/03/17 08:37 Dose: 100 mg Memantine (Namenda) 10 mg PO BID [facility] Last Admin: 09/03/17 08:37 Dose: 10 mg Metoprolol Succinate (Toprol Xl) 50 mg PO DAILY [facility] Last Admin: 09/03/17 08:36 Dose: 50 mg Montelukast Sodium (Singulair) 10 mg PO DAILY [facility] Last Admin: 09/03/17 08:38 Dose: 10 mg Nitroglycerin (Nitrostat Sl Tab) 0.4 mg SL Q5M PRN PRN Reason: Pain, moderate (4-7) Last Admin: 09/03/17 16:09 Dose: 0.4 mg Nystatin (Nystop Topical Powder) 1 applic TOP TID [facility] Last Admin: 09/03/17 16:11 Dose: 1 applic Pantoprazole Sodium (Protonix Ec Tab) 40 mg PO DAILY [facility] Last Admin: 09/03/17 08:37 Dose: 40 mg Paroxetine HCl (Paxil) 20 mg PO DAILY [facility] Last Admin: 09/03/17 08:36 Dose: 20 mg Pravastatin Sodium (Pravachol) 20 mg PO HS [facility] Last Admin: 09/02/17 21:19 Dose: 20 mg - Labs Labs: 09/03/17 04:50 09/03/17 04:50 PT 12.6 Seconds (9.8-13.1) 08/27/17 10:30 INR 1.1 (0.9-1.2) 08/27/17 10:30 APTT 30.0 Seconds (25.6-37.1) 08/27/17 10:30
--- NOTE | 2017-09-03 17:01 | CP.PCM.CON ---
<Geena Pineda - Last Filed: 09/03/17 17:01> History of Present Illness - History of Present Illness History of Present Illness: PGY2 progress note for cardiology, Dr. Fernandez 86 year old female with past medical history of HTn, HLD, OS, hx of pneumonia presented to hospital after PCP found pleural effusion on CXR. Cardiology was consulted for pre-op clearance for right lung VATS procedure. During the hospital stay, patient had CT guided right thoracocentesis with fluid only showing lymphocytes. Bronchoscopy was also done which was negative for malignancy. Patient states that at home, she is able to ambulate a few steps with the help of a cane. Patient denies having any previous cardiac workup. While resting in bed, patient denies having any CP, SOB, abd pain, N/V/D/C. Patient was asked to stand up and walk around the room. With only standing up, patient developed chest tightness. 12 point ROS are negative except for the above mentioned. PMHx: stated above PSH: Hysterectomy, kidney surgery, L hip & knee surgery, R thoracentesis () All: PCN SH: No known ETOH, tobacco or illicit drug use PMDl: Martinez Hameed MD Review of Systems - Constitutional Constitutional: As Per HPI - EENT Eyes: As Per HPI Nose/Mouth/Throat: As Per HPI - Cardiovascular Cardiovascular: As Per HPI, Chest Pain with Activity - Respiratory Respiratory: As Per HPI - Gastrointestinal Gastrointestinal: As Per HPI - Genitourinary Genitourinary: As Per HPI - Musculoskeletal Musculoskeletal: As Per HPI - Integumentary Integumentary: As Per HPI - Neurological Neurological: As Per HPI Past Patient History - Past Medical History & Family History Past Medical History?: Yes - Past Social History Smoking Status: Never Smoked Chewing Tobacco Use: No Cigar Use: No Alcohol: None Drugs: Denies - CARDIAC Hx Hypercholesterolemia: Yes Hx Hypertension: Yes - PULMONARY Hx Asthma: Yes Hx Bronchitis: Yes Hx Chronic Obstructive Pulmonary Disease (COPD): Yes Hx Pneumonia: Yes - NEUROLOGICAL Hx Dementia: Yes - HEENT Hx HEENT Problems: No - RENAL Hx Chronic Kidney Disease: No - ENDOCRINE/METABOLIC Hx Endocrine Disorders: No - HEMATOLOGICAL/ONCOLOGICAL Hx Anemia: Yes Hx Human Immunodeficiency Virus (HIV): No - INTEGUMENTARY Hx Dermatological Problems: No - MUSCULOSKELETAL/RHEUMATOLOGICAL Hx Arthritis: Yes Hx Osteoporosis: Yes - GASTROINTESTINAL Hx Diverticulitis: Yes - GENITOURINARY/GYNECOLOGICAL Hx Genitourinary Disorders: No - PSYCHIATRIC Hx Depression: Yes - SURGICAL HISTORY Hx Surgeries: Yes Hx Hysterectomy: Yes Hx Orthopedic Surgery: Yes Other/Comment: Kidney Surgery, Left Hip Replacement, left knee surgery - ANESTHESIA Hx Anesthesia: Yes Hx Anesthesia Reactions: No Hx Malignant Hyperthermia: No Has any member of the family had a problem w/ anesthesia?: No Meds Allergies/Adverse Reactions: Allergies Allergy/AdvReac Type Severity Reaction Status Date / Time No Known Allergies Allergy Verified 04/03/15 20:49 - Medications Medications: Current Medications Acetaminophen (Tylenol 325mg Tab) 650 mg PO Q6 PRN PRN Reason: Pain, moderate (4-7) Last Admin: 09/01/17 21:39 Dose: 650 mg Acetylcysteine (Acetylcysteine 20%) 2 ml INH RBID [facility] Last Admin: 09/03/17 07:47 Dose: 2 ml Albuterol Sulfate (Albuterol 0.083% Inhal Carmen (2.5 Mg/3 Ml) Ud) 2.5 mg INH ONCE PRN PRN Reason: Shortness of Breath Last Admin: 08/28/17 10:30 Dose: 2.5 mg Albuterol Sulfate (Albuterol 0.083% Inhal Carmen (2.5 Mg/3 Ml) Ud) 2.5 mg INH RQ4 PRN PRN Reason: Shortness of Breath Albuterol/Ipratropium (Duoneb 3 Mg/0.5 Mg (3 Ml) Ud) 3 ml INH RQID [facility] Last Admin: 09/03/17 16:06 Dose: 3 ml Docusate Sodium (Colace) 200 mg PO DAILY [facility] Last Admin: 09/03/17 08:35 Dose: 200 mg Enoxaparin Sodium (Lovenox) 40 mg SC DAILY [facility] PRN Reason: Protocol Last Admin: 09/03/17 16:10 Dose: 40 mg Meropenem 1 gm/ Sodium (Chloride) 100 mls @ 100 mls/hr IVPB Q12@0000,1200 [facility] PRN Reason: Protocol Last Admin: 09/03/17 12:20 Dose: 100 mls/hr Latanoprost (Xalatan Opht) 1 drop OU DAILY [facility] Last Admin: 09/03/17 08:35 Dose: 1 drop Losartan Potassium (Cozaar) 100 mg PO DAILY [facility] Last Admin: 09/03/17 08:37 Dose: 100 mg Memantine (Namenda) 10 mg PO BID [facility] Last Admin: 09/03/17 08:37 Dose: 10 mg Metoprolol Succinate (Toprol Xl) 50 mg PO DAILY [facility] Last Admin: 09/03/17 08:36 Dose: 50 mg Montelukast Sodium (Singulair) 10 mg PO DAILY [facility] Last Admin: 09/03/17 08:38 Dose: 10 mg Nitroglycerin (Nitrostat Sl Tab) 0.4 mg SL Q5M PRN PRN Reason: Pain, moderate (4-7) Last Admin: 09/03/17 16:09 Dose: 0.4 mg Nystatin (Nystop Topical Powder) 1 applic TOP TID [facility] Last Admin: 09/03/17 16:11 Dose: 1 applic Pantoprazole Sodium (Protonix Ec Tab) 40 mg PO DAILY [facility] Last Admin: 09/03/17 08:37 Dose: 40 mg Paroxetine HCl (Paxil) 20 mg PO DAILY [facility] Last Admin: 09/03/17 08:36 Dose: 20 mg Pravastatin Sodium (Pravachol) 20 mg PO HS [facility] Last Admin: 09/02/17 21:19 Dose: 20 mg Physical Exam - Constitutional Appears: Non-toxic, No Acute Distress - Head Exam Head Exam: ATRAUMATIC - ENT Exam ENT Exam: Mucous Membranes Moist - Respiratory Exam Respiratory Exam: Decreased Breath Sounds (on right lung ). absent: Rhonchi, Wheezes - Cardiovascular Exam Cardiovascular Exam: REGULAR RHYTHM, +S1, +S2 - GI/Abdominal Exam GI & Abdominal Exam: Normal Bowel Sounds, Soft. absent: Distended, Firm, Guarding, Rigid, Tenderness - Extremities Exam Extremities exam: Negative for: pedal edema, tenderness - Neurological Exam Neurological exam: Alert, Oriented x3 - Psychiatric Exam Psychiatric exam: Normal Affect, Normal Mood - Skin Skin Exam: Dry, Intact, Normal Color, Warm Results - Vital Signs Recent Vital Signs: Last Vital Signs Temp 98.1 F 09/03/17 16:21 Pulse 66 09/03/17 16:21 Resp 16 09/03/17 16:21 BP 148/56 L 09/03/17 16:21 Pulse Ox 100 09/03/17 16:21 - Labs Result Diagrams: 09/03/17 04:50 09/03/17 04:50 Labs: Laboratory Results - last 24 hr 09/03/17 09/03/17 04:50 04:50 WBC 7.9 RBC 4.22 Hgb 10.7 L Hct 33.2 L MCV 78.7 L MCH 25.5 L MCHC 32.3 L RDW 14.8 H Plt Count 257 Sodium 139 Potassium 4.6 Chloride 100 Carbon Dioxide 34 H Anion Gap 10 BUN 13 Creatinine 0.7 Est GFR ( Amer) > 60 Est GFR (Non-Af Amer) > 60 Random Glucose 86 Calcium 8.9 Total Bilirubin 0.3 AST 31 ALT 39 Alkaline Phosphatase 76 Total Protein 6.3 Albumin 3.1 L Globulin 3.2 Albumin/Globulin Ratio 1.0 Assessment & Plan - Assessment and Plan (Free Text) Assessment: 86 year old female with past medical history of HTN, HLD, and right pleural effusion is being seen of cardiac clearance for right VATS procedure. Pre-op medical clearance for VATS procedure Patient developed chest tightness with just trying to stand up from bed her METs is 1. Her baseline is even low activity level. Seeing as this procedure is moderate risk and patient will require a nuclear stress test before procedure. Stress test ordered. Chest pain r.o ACS Stat nitro was ordered for patient. Chest tightness improved Troponin and EKG ordered stat Case discussed with attending, Dr. Fernandez. all recs and orders per attending. - Date & Time Date: 09/03/17 Time: 17:01 <Renzo Fernandez - Last Filed: 09/03/17 17:25> Meds - Medications Medications: Current Medications Acetaminophen (Tylenol 325mg Tab) 650 mg PO Q6 PRN PRN Reason: Pain, moderate (4-7) Last Admin: 09/01/17 21:39 Dose: 650 mg Acetylcysteine (Acetylcysteine 20%) 2 ml INH RBID [facility] Last Admin: 09/03/17 07:47 Dose: 2 ml Albuterol Sulfate (Albuterol 0.083% Inhal Carmen (2.5 Mg/3 Ml) Ud) 2.5 mg INH ONCE PRN PRN Reason: Shortness of Breath Last Admin: 08/28/17 10:30 Dose: 2.5 mg Albuterol Sulfate (Albuterol 0.083% Inhal Carmen (2.5 Mg/3 Ml) Ud) 2.5 mg INH RQ4 PRN PRN Reason: Shortness of Breath Albuterol/Ipratropium (Duoneb 3 Mg/0.5 Mg (3 Ml) Ud) 3 ml INH RQID [facility] Last Admin: 09/03/17 16:06 Dose: 3 ml Docusate Sodium (Colace) 200 mg PO DAILY [facility] Last Admin: 09/03/17 08:35 Dose: 200 mg Enoxaparin Sodium (Lovenox) 40 mg SC DAILY [facility] PRN Reason: Protocol Last Admin: 09/03/17 16:10 Dose: 40 mg Meropenem 1 gm/ Sodium (Chloride) 100 mls @ 100 mls/hr IVPB Q12@0000,1200 [facility] PRN Reason: Protocol Last Admin: 09/03/17 12:20 Dose: 100 mls/hr Latanoprost (Xalatan Opht) 1 drop OU DAILY [facility] Last Admin: 09/03/17 08:35 Dose: 1 drop Losartan Potassium (Cozaar) 100 mg PO DAILY [facility] Last Admin: 09/03/17 08:37 Dose: 100 mg Memantine (Namenda) 10 mg PO BID [facility] Last Admin: 09/03/17 08:37 Dose: 10 mg Metoprolol Succinate (Toprol Xl) 50 mg PO DAILY [facility] Last Admin: 09/03/17 08:36 Dose: 50 mg Montelukast Sodium (Singulair) 10 mg PO DAILY [facility] Last Admin: 09/03/17 08:38 Dose: 10 mg Nitroglycerin (Nitrostat Sl Tab) 0.4 mg SL Q5M PRN PRN Reason: Pain, moderate (4-7) Last Admin: 09/03/17 16:09 Dose: 0.4 mg Nystatin (Nystop Topical Powder) 1 applic TOP TID [facility] Last Admin: 09/03/17 16:11 Dose: 1 applic Pantoprazole Sodium (Protonix Ec Tab) 40 mg PO DAILY [facility] Last Admin: 09/03/17 08:37 Dose: 40 mg Paroxetine HCl (Paxil) 20 mg PO DAILY [facility] Last Admin: 09/03/17 08:36 Dose: 20 mg Pravastatin Sodium (Pravachol) 20 mg PO HS [facility] Last Admin: 09/02/17 21:19 Dose: 20 mg Results - Vital Signs Recent Vital Signs: Last Vital Signs Temp 98.1 F 12/20/17 16:21 Pulse 66 09/03/17 16:21 Resp 16 09/03/17 16:21 BP 148/56 L 09/03/17 16:21 Pulse Ox 100 09/03/17 16:21 - Labs Result Diagrams: 09/03/17 04:50 09/03/17 04:50 Labs: Laboratory Results - last 24 hr 09/03/17 09/03/17 04:50 04:50 WBC 7.9 RBC 4.22 Hgb 10.7 L Hct 33.2 L MCV 78.7 L MCH 25.5 L MCHC 32.3 L RDW 14.8 H Plt Count 257 Sodium 139 Potassium 4.6 Chloride 100 Carbon Dioxide 34 H Anion Gap 10 BUN 13 Creatinine 0.7 Est GFR ( Amer) > 60 Est GFR (Non-Af Amer) > 60 Random Glucose 86 Calcium 8.9 Total Bilirubin 0.3 AST 31 ALT 39 Alkaline Phosphatase 76 Total Protein 6.3 Albumin 3.1 L Globulin 3.2 Albumin/Globulin Ratio 1.0 Attending/Attestation - Attestation I have personally seen and examined this patient.: Yes I have fully participated in the care of the patient.: Yes I have reviewed all pertinent clinical information: Yes Notes (Text): 09/03/17 17:22 86 year old female being evaluated for preop cardiac risk stratification patient developed chest pains after standing and was unable to walk given s/l NTG with resolution of pain plan for stress test in am NPO p MN
[2017-09-04] MEDS: Pravastatin Sodium 20 MG TAB PO SCH ×2 (00:12→21:22)
[2017-09-04] MEDS: Meropenem 1 GM in Sodium Chloride 0.9% 100 ML IVPB SCH ×3 (00:14→23:37)
[2017-09-04] MEDS: Albuterol-Ipratrop 3 mg / 0.5 (3 ml) UD INH SCH ×4 (07:48→19:17)
[2017-09-04] MEDS: Acetylcysteine 20% Inhal Soln (4ml) INH SCH ×2 (07:48→19:17)
--- NOTE | 2017-09-04 08:49 | CP.PCM.PN ---
Subjective - Date & Time of Evaluation Date of Evaluation: 09/04/17 Time of Evaluation: 07:00 - Subjective Subjective: THORACIC SURGERY PROGRESS NOTE FOR DR. ROWE Patient seen and examined at bedside. She denies SOB or chest pain. She is tolerating her diet. She is NPO for nuclear stress test today. Objective - Vital Signs/Intake and Output Vital Signs (last 24 hours): Temp Pulse Resp BP Pulse Ox 98.5 F 58 L 20 146/56 L 100 09/04/17 08:42 09/04/17 08:42 09/04/17 08:42 09/04/17 05:26 09/04/17 08:42 Intake and Output: 09/04/17 09/04/17 06:59 18:59 Output Total 150 Balance -150 - Medications Medications: Current Medications Acetaminophen (Tylenol 325mg Tab) 650 mg PO Q6 PRN PRN Reason: Pain, moderate (4-7) Last Admin: 09/01/17 21:39 Dose: 650 mg Acetylcysteine (Acetylcysteine 20%) 2 ml INH RBID [facility] Last Admin: 09/04/17 07:48 Dose: 2 ml Albuterol Sulfate (Albuterol 0.083% Inhal Carmen (2.5 Mg/3 Ml) Ud) 2.5 mg INH ONCE PRN PRN Reason: Shortness of Breath Last Admin: 08/28/17 10:30 Dose: 2.5 mg Albuterol Sulfate (Albuterol 0.083% Inhal Carmen (2.5 Mg/3 Ml) Ud) 2.5 mg INH RQ4 PRN PRN Reason: Shortness of Breath Albuterol/Ipratropium (Duoneb 3 Mg/0.5 Mg (3 Ml) Ud) 3 ml INH RQID [facility] Last Admin: 09/04/17 07:48 Dose: 3 ml Docusate Sodium (Colace) 200 mg PO DAILY [facility] Last Admin: 09/03/17 08:35 Dose: 200 mg Enoxaparin Sodium (Lovenox) 40 mg SC DAILY [facility] PRN Reason: Protocol Last Admin: 09/03/17 16:10 Dose: 40 mg Meropenem 1 gm/ Sodium (Chloride) 100 mls @ 100 mls/hr IVPB Q12@0000,1200 [facility] PRN Reason: Protocol Last Admin: 09/04/17 00:14 Dose: 100 mls/hr Latanoprost (Xalatan Opht) 1 drop OU DAILY [facility] Last Admin: 09/03/17 08:35 Dose: 1 drop Losartan Potassium (Cozaar) 100 mg PO DAILY [facility] Last Admin: 09/03/17 08:37 Dose: 100 mg Memantine (Namenda) 10 mg PO BID [facility] Last Admin: 09/03/17 18:47 Dose: 10 mg Metoprolol Succinate (Toprol Xl) 50 mg PO DAILY [facility] Last Admin: 09/03/17 08:36 Dose: 50 mg Montelukast Sodium (Singulair) 10 mg PO DAILY [facility] Last Admin: 09/03/17 08:38 Dose: 10 mg Nitroglycerin (Nitrostat Sl Tab) 0.4 mg SL Q5M PRN PRN Reason: Pain, moderate (4-7) Last Admin: 09/03/17 16:09 Dose: 0.4 mg Nystatin (Nystop Topical Powder) 1 applic TOP TID [facility] Last Admin: 09/03/17 16:11 Dose: 1 applic Pantoprazole Sodium (Protonix Ec Tab) 40 mg PO DAILY [facility] Last Admin: 09/03/17 08:37 Dose: 40 mg Paroxetine HCl (Paxil) 20 mg PO DAILY [facility] Last Admin: 09/03/17 08:36 Dose: 20 mg Pravastatin Sodium (Pravachol) 20 mg PO HS [facility] Last Admin: 09/04/17 00:12 Dose: 20 mg - Labs Labs: 09/03/17 04:50 09/03/17 04:50 PT 12.6 Seconds (9.8-13.1) 08/27/17 10:30 INR 1.1 (0.9-1.2) 08/27/17 10:30 APTT 30.0 Seconds (25.6-37.1) 08/27/17 10:30 - Constitutional Appears: Non-toxic, No Acute Distress - Head Exam Head Exam: ATRAUMATIC, NORMAL INSPECTION - Respiratory Exam Respiratory Exam: NORMAL BREATHING PATTERN. absent: Respiratory Distress - Cardiovascular Exam Cardiovascular Exam: +S1, +S2. absent: Tachycardia - Neurological Exam Neurological Exam: Alert, Awake. absent: Oriented x3 (dementia) - Psychiatric Exam Psychiatric exam: Normal Affect, Normal Mood - Skin Skin Exam: Dry, Warm Assessment and Plan - Assessment and Plan (Free Text) Assessment: 86yo F with PMHx of dementia, HTN, OA, hyperlipidemia with recurrent right pleural effusion - VATS with biopsy and pleurodesis scheduled for 09/12 - ABG done - Per respiratory therapist: PFTs were unable to be done due to patient's inability to follow commands due to her dementia - Cardiology consulted for clearance: patient going for nuclear stress test today - Discussed plan with Dr. Mary Beth Calderon PGY-3
[2017-09-04] MEDS: Pantoprazole 40 mg EC Tab PO SCH (09:11)
[2017-09-04] MEDS: Metoprolol Succinate 50 mg XL Tab PO SCH (09:12)
[2017-09-04] MEDS: Latanoprost 0.005% Opht SOUTION OU SCH (09:14)
--- NOTE | 2017-09-04 09:33 | CP.PCM.PN ---
<Mahi Guerra - Last Filed: 09/04/17 11:20> Subjective - Date & Time of Evaluation Date of Evaluation: 09/04/17 Time of Evaluation: 07:15 - Subjective Subjective: Patient seen and examined with attending Dr Deja patterson. Patient awake alert, with dementia.enies SOB,chest pain, SOB, nausea, vomiting, abd pain.Pt will have nuclear stress test today in the morning.VATS with biopsy and pleurodesis scheduled for 09/12 Objective - Vital Signs/Intake and Output Vital Signs (last 24 hours): Temp Pulse Resp BP Pulse Ox 98.5 F 55 L 20 99/54 L 100 09/04/17 08:42 09/04/17 09:12 09/04/17 08:42 09/04/17 09:12 09/04/17 08:42 Intake and Output: 09/04/17 09/04/17 06:59 18:59 Output Total 150 Balance -150 - Medications Medications: Current Medications Acetaminophen (Tylenol 325mg Tab) 650 mg PO Q6 PRN PRN Reason: Pain, moderate (4-7) Last Admin: 09/01/17 21:39 Dose: 650 mg Acetylcysteine (Acetylcysteine 20%) 2 ml INH RBID [facility] Last Admin: 09/04/17 07:48 Dose: 2 ml Albuterol Sulfate (Albuterol 0.083% Inhal Carmen (2.5 Mg/3 Ml) Ud) 2.5 mg INH RQ4 PRN PRN Reason: Shortness of Breath Albuterol/Ipratropium (Duoneb 3 Mg/0.5 Mg (3 Ml) Ud) 3 ml INH RQID [facility] Last Admin: 09/04/17 07:48 Dose: 3 ml Docusate Sodium (Colace) 200 mg PO DAILY [facility] Last Admin: 09/04/17 09:10 Dose: Not Given Enoxaparin Sodium (Lovenox) 40 mg SC DAILY [facility] PRN Reason: Protocol Last Admin: 09/03/17 16:10 Dose: 40 mg Meropenem 1 gm/ Sodium (Chloride) 100 mls @ 100 mls/hr IVPB Q12@0000,1200 [facility] PRN Reason: Protocol Last Admin: 09/04/17 00:14 Dose: 100 mls/hr Latanoprost (Xalatan Opht) 1 drop OU DAILY [facility] Last Admin: 09/04/17 09:14 Dose: 1 drop Losartan Potassium (Cozaar) 100 mg PO DAILY [facility] Last Admin: 09/04/17 09:10 Dose: Not Given Memantine (Namenda) 10 mg PO BID [facility] Last Admin: 09/04/17 09:10 Dose: Not Given Metoprolol Succinate (Toprol Xl) 50 mg PO DAILY [facility] Last Admin: 09/04/17 09:12 Dose: Not Given Montelukast Sodium (Singulair) 10 mg PO DAILY [facility] Last Admin: 09/04/17 09:11 Dose: Not Given Nitroglycerin (Nitrostat Sl Tab) 0.4 mg SL Q5M PRN PRN Reason: Pain, moderate (4-7) Last Admin: 09/03/17 16:09 Dose: 0.4 mg Nystatin (Nystop Topical Powder) 1 applic TOP TID [facility] Last Admin: 09/04/17 09:11 Dose: 1 applic Pantoprazole Sodium (Protonix Ec Tab) 40 mg PO DAILY [facility] Last Admin: 09/04/17 09:11 Dose: Not Given Paroxetine HCl (Paxil) 20 mg PO DAILY [facility] Last Admin: 09/04/17 09:11 Dose: Not Given Pravastatin Sodium (Pravachol) 20 mg PO HS [facility] Last Admin: 09/04/17 00:12 Dose: 20 mg - Labs Labs: 09/03/17 04:50 09/03/17 04:50 PT 12.6 Seconds (9.8-13.1) 08/27/17 10:30 INR 1.1 (0.9-1.2) 08/27/17 10:30 APTT 30.0 Seconds (25.6-37.1) 08/27/17 10:30 - Constitutional Appears: Non-toxic, No Acute Distress - Head Exam Head Exam: ATRAUMATIC, NORMOCEPHALIC - Eye Exam Eye Exam: Normal appearance - Neck Exam Neck Exam: Normal Inspection - Respiratory Exam Respiratory Exam: Decreased Breath Sounds (right lung base). absent: Wheezes - Cardiovascular Exam Cardiovascular Exam: REGULAR RHYTHM, +S1, +S2 - GI/Abdominal Exam GI & Abdominal Exam: Soft, Normal Bowel Sounds. absent: Tenderness - Extremities Exam Extremities Exam: Normal Inspection. absent: Pedal Edema - Back Exam Back Exam: NORMAL INSPECTION - Neurological Exam Neurological Exam: Alert, Awake - Psychiatric Exam Psychiatric exam: Normal Mood - Skin Skin Exam: Intact Assessment and Plan (1) Pleural effusion Status: Acute (2) Chronic asthma Status: Chronic (3) Dementia Status: Chronic (4) DVT prophylaxis Status: Acute - Assessment and Plan (Free Text) Plan: Assessment and Plan (1) Pleural effusion Assessment & Plan: Right side recurrent -Pulmunology consult appreciated -Cardiothoracic consult appreciated pt will need VATS with lung biopsy and pleurodesis.scheduled for 09/12 -will have nuclear stress test today -cleared by grapple operator - on telemetry, no arrhythmia today (2) Chronic asthma Status: Chronic (3) Dementia Status: Chronic (4) DVT prophylaxis Assessment & Plan: -Lovenox 40 mg sc Status: Acute <Short,Jose K - Last Filed: 09/12/17 12:24> Objective - Vital Signs/Intake and Output Vital Signs (last 24 hours): Temp Pulse Resp BP Pulse Ox 98.4 F 69 18 124/53 L 98 09/12/17 12:16 09/12/17 12:16 09/12/17 12:16 09/12/17 12:16 09/12/17 12:16 - Medications Medications: Current Medications Acetaminophen (Tylenol 325mg Tab) 650 mg PO Q6 PRN PRN Reason: Pain, moderate (4-7) Last Admin: 09/01/17 21:39 Dose: 650 mg Acetylcysteine (Acetylcysteine 20%) 2 ml INH RBID [facility] Last Admin: 09/12/17 08:10 Dose: 2 ml Albuterol Sulfate (Albuterol 0.083% Inhal Carmen (2.5 Mg/3 Ml) Ud) 2.5 mg INH RQ4 PRN PRN Reason: Shortness of Breath Albuterol/Ipratropium (Duoneb 3 Mg/0.5 Mg (3 Ml) Ud) 3 ml INH RQID [facility] Last Admin: 09/12/17 11:35 Dose: 3 ml Docusate Sodium (Colace) 200 mg PO DAILY [facility] Last Admin: 09/12/17 09:02 Dose: 200 mg Enoxaparin Sodium (Lovenox) 40 mg SC DAILY [facility] PRN Reason: Protocol Furosemide (Lasix) 20 mg PO DAILY [facility] Last Admin: 09/12/17 09:03 Dose: 20 mg Latanoprost (Xalatan Opht) 1 drop OU DAILY [facility] Last Admin: 09/12/17 09:03 Dose: 1 drop Losartan Potassium (Cozaar) 100 mg PO DAILY [facility] Last Admin: 09/12/17 09:04 Dose: 100 mg Memantine (Namenda) 10 mg PO BID [facility] Last Admin: 09/12/17 09:04 Dose: 10 mg Metoprolol Succinate (Toprol Xl) 50 mg PO DAILY [facility] Last Admin: 09/12/17 09:02 Dose: 50 mg Montelukast Sodium (Singulair) 10 mg PO DAILY [facility] Last Admin: 09/12/17 09:02 Dose: 10 mg Nitroglycerin (Nitrostat Sl Tab) 0.4 mg SL Q5M PRN PRN Reason: Pain, moderate (4-7) Last Admin: 09/03/17 16:09 Dose: 0.4 mg Nystatin (Nystop Topical Powder) 1 applic TOP TID [facility] Last Admin: 09/12/17 09:01 Dose: 1 applic Nystatin (Nystatin Oral Susp) 5 ml PO QID [facility] Last Admin: 09/12/17 09:01 Dose: 5 ml Pantoprazole Sodium (Protonix Ec Tab) 40 mg PO DAILY [facility] Last Admin: 09/12/17 09:02 Dose: 40 mg Paroxetine HCl (Paxil) 20 mg PO DAILY [facility] Last Admin: 09/12/17 09:02 Dose: 20 mg Pravastatin Sodium (Pravachol) 20 mg PO HS [facility] Last Admin: 09/11/17 21:37 Dose: 20 mg Spironolactone (Aldactone) 25 mg PO DAILY [facility] Last Admin: 09/12/17 09:01 Dose: 25 mg - Labs Labs: 09/12/17 05:02 09/12/17 05:02 PT 12.9 Seconds (9.8-13.1) 09/12/17 05:02 INR 1.2 (0.9-1.2) 09/12/17 05:02 APTT 32.7 Seconds (25.6-37.1) 09/11/17 09:02 Assessment and Plan - Assessment and Plan (Free Text) Assessment: Patient was personally seen and examined by me in rounds with residents. Available labs and diagnostic data reviewed. Case, patient's condition and management plan discussed with residents in rounds. Agree with resident's progress note. Plan: As ordered.
--- NOTE | 2017-09-04 09:33 | CP.PCM.PN ---
Subjective - Date & Time of Evaluation Date of Evaluation: 09/04/17 Time of Evaluation: 09:32 - Subjective Subjective: Presently out for nuclear stress test. Will return later. Review of lab data shows pathology specimen reported as bronchial mucosa with focal organizing hemorrhage, negative for malignancy. Cytology results from the same procedure are still pending at this time. Patient has been seen by surgery and has tentative schedule for VATS with lung biopsy next week. Currently clinical findings have been unchanged and the patient appears relatively comfortable. Breath sounds are present bilaterally although diminished, and absent in the right base posteriorly. No palpable lymphadenopathy is noted. No dependent edema or cyanosis. Intake regimen and await cytology results. Await results of stress Myoview study. Patient was unable to perform pulmonary function study. Objective - Vital Signs/Intake and Output Vital Signs (last 24 hours): Temp Pulse Resp BP Pulse Ox 98.5 F 55 L 20 99/54 L 100 09/04/17 08:42 09/04/17 09:12 09/04/17 08:42 09/04/17 09:12 09/04/17 08:42 Intake and Output: 09/03/17 09/04/17 23:59 11:59 Output Total 150 Balance -150 - Medications Medications: Current Medications Acetaminophen (Tylenol 325mg Tab) 650 mg PO Q6 PRN PRN Reason: Pain, moderate (4-7) Last Admin: 09/01/17 21:39 Dose: 650 mg Acetylcysteine (Acetylcysteine 20%) 2 ml INH RBID [facility] Last Admin: 09/04/17 07:48 Dose: 2 ml Albuterol Sulfate (Albuterol 0.083% Inhal Carmen (2.5 Mg/3 Ml) Ud) 2.5 mg INH RQ4 PRN PRN Reason: Shortness of Breath Albuterol/Ipratropium (Duoneb 3 Mg/0.5 Mg (3 Ml) Ud) 3 ml INH RQID [facility] Last Admin: 09/04/17 07:48 Dose: 3 ml Docusate Sodium (Colace) 200 mg PO DAILY [facility] Last Admin: 09/04/17 09:10 Dose: Not Given Enoxaparin Sodium (Lovenox) 40 mg SC DAILY [facility] PRN Reason: Protocol Last Admin: 09/03/17 16:10 Dose: 40 mg Meropenem 1 gm/ Sodium (Chloride) 100 mls @ 100 mls/hr IVPB Q12@0000,1200 [facility] PRN Reason: Protocol Last Admin: 09/04/17 00:14 Dose: 100 mls/hr Latanoprost (Xalatan Opht) 1 drop OU DAILY [facility] Last Admin: 09/04/17 09:14 Dose: 1 drop Losartan Potassium (Cozaar) 100 mg PO DAILY [facility] Last Admin: 09/04/17 09:10 Dose: Not Given Memantine (Namenda) 10 mg PO BID [facility] Last Admin: 09/04/17 09:10 Dose: Not Given Metoprolol Succinate (Toprol Xl) 50 mg PO DAILY [facility] Last Admin: 09/04/17 09:12 Dose: Not Given Montelukast Sodium (Singulair) 10 mg PO DAILY [facility] Last Admin: 09/04/17 09:11 Dose: Not Given Nitroglycerin (Nitrostat Sl Tab) 0.4 mg SL Q5M PRN PRN Reason: Pain, moderate (4-7) Last Admin: 09/03/17 16:09 Dose: 0.4 mg Nystatin (Nystop Topical Powder) 1 applic TOP TID [facility] Last Admin: 09/04/17 09:11 Dose: 1 applic Pantoprazole Sodium (Protonix Ec Tab) 40 mg PO DAILY [facility] Last Admin: 09/04/17 09:11 Dose: Not Given Paroxetine HCl (Paxil) 20 mg PO DAILY [facility] Last Admin: 09/04/17 09:11 Dose: Not Given Pravastatin Sodium (Pravachol) 20 mg PO HS [facility] Last Admin: 09/04/17 00:12 Dose: 20 mg - Labs Labs: 09/03/17 04:50 09/03/17 04:50 PT 12.6 Seconds (9.8-13.1) 08/27/17 10:30 INR 1.1 (0.9-1.2) 08/27/17 10:30 APTT 30.0 Seconds (25.6-37.1) 08/27/17 10:30 Assessment and Plan (1) Pleural effusion Status: Acute (2) Chronic asthma Status: Chronic (3) Dementia Status: Chronic
[2017-09-04] MEDS: Enoxaparin 40 mg Syringe SC SCH (12:45)
--- NOTE | 2017-09-04 13:10 | CP.PCM.PN ---
<Geena Pineda - Last Filed: 09/05/17 06:37> Subjective - Date & Time of Evaluation Date of Evaluation: 09/04/17 Time of Evaluation: 13:09 - Subjective Subjective: PGY2 progress note for cardiology, Dr. Fernandez Pt is seen and examined at bedside. No acute events overnight. Pt had stress test done this morning. Is resting comfortably. denies having any CP, SOB, abd pain, N/V/D/C, F/C. Objective - Vital Signs/Intake and Output Vital Signs (last 24 hours): Temp Pulse Resp BP Pulse Ox 99 F 67 20 136/60 97 09/04/17 13:00 09/04/17 13:00 09/04/17 13:00 09/04/17 13:00 09/04/17 13:00 Intake and Output: 09/04/17 09/04/17 06:59 18:59 Output Total 150 Balance -150 - Medications Medications: Current Medications Acetaminophen (Tylenol 325mg Tab) 650 mg PO Q6 PRN PRN Reason: Pain, moderate (4-7) Last Admin: 09/01/17 21:39 Dose: 650 mg Acetylcysteine (Acetylcysteine 20%) 2 ml INH RBID [facility] Last Admin: 09/04/17 07:48 Dose: 2 ml Albuterol Sulfate (Albuterol 0.083% Inhal Carmen (2.5 Mg/3 Ml) Ud) 2.5 mg INH RQ4 PRN PRN Reason: Shortness of Breath Albuterol/Ipratropium (Duoneb 3 Mg/0.5 Mg (3 Ml) Ud) 3 ml INH RQID [facility] Last Admin: 09/04/17 11:45 Dose: 3 ml Docusate Sodium (Colace) 200 mg PO DAILY [facility] Last Admin: 09/04/17 09:10 Dose: Not Given Enoxaparin Sodium (Lovenox) 40 mg SC DAILY [facility] PRN Reason: Protocol Last Admin: 09/04/17 12:45 Dose: 40 mg Meropenem 1 gm/ Sodium (Chloride) 100 mls @ 100 mls/hr IVPB Q12@0000,1200 [facility] PRN Reason: Protocol Last Admin: 09/04/17 12:46 Dose: 100 mls/hr Latanoprost (Xalatan Opht) 1 drop OU DAILY [facility] Last Admin: 09/04/17 09:14 Dose: 1 drop Losartan Potassium (Cozaar) 100 mg PO DAILY [facility] Last Admin: 09/04/17 09:10 Dose: Not Given Memantine (Namenda) 10 mg PO BID [facility] Last Admin: 09/04/17 09:10 Dose: Not Given Metoprolol Succinate (Toprol Xl) 50 mg PO DAILY [facility] Last Admin: 09/04/17 09:12 Dose: Not Given Montelukast Sodium (Singulair) 10 mg PO DAILY [facility] Last Admin: 09/04/17 09:11 Dose: Not Given Nitroglycerin (Nitrostat Sl Tab) 0.4 mg SL Q5M PRN PRN Reason: Pain, moderate (4-7) Last Admin: 09/03/17 16:09 Dose: 0.4 mg Nystatin (Nystop Topical Powder) 1 applic TOP TID [facility] Last Admin: 09/04/17 12:46 Dose: 1 applic Pantoprazole Sodium (Protonix Ec Tab) 40 mg PO DAILY [facility] Last Admin: 09/04/17 09:11 Dose: Not Given Paroxetine HCl (Paxil) 20 mg PO DAILY [facility] Last Admin: 09/04/17 09:11 Dose: Not Given Pravastatin Sodium (Pravachol) 20 mg PO HS [facility] Last Admin: 09/04/17 00:12 Dose: 20 mg - Labs Labs: 09/03/17 04:50 09/03/17 04:50 PT 12.6 Seconds (9.8-13.1) 08/27/17 10:30 INR 1.1 (0.9-1.2) 08/27/17 10:30 APTT 30.0 Seconds (25.6-37.1) 08/27/17 10:30 - Constitutional Appears: Non-toxic, No Acute Distress - Head Exam Head Exam: ATRAUMATIC - ENT Exam ENT Exam: Mucous Membranes Moist - Respiratory Exam Respiratory Exam: Rhonchi. absent: Rales, Wheezes, Respiratory Distress - Cardiovascular Exam Cardiovascular Exam: REGULAR RHYTHM, +S1, +S2 - GI/Abdominal Exam GI & Abdominal Exam: Soft, Normal Bowel Sounds. absent: Distended, Guarding, Rigid, Tenderness - Extremities Exam Extremities Exam: absent: Pedal Edema, Tenderness - Neurological Exam Neurological Exam: Alert, Awake, Oriented x3 - Psychiatric Exam Psychiatric exam: Normal Affect, Normal Mood - Skin Skin Exam: Dry, Intact, Normal Color, Warm Assessment and Plan - Assessment and Plan (Free Text) Assessment: 86 year old female with past medical history of HTN, HLD, and right pleural effusion is being seen of cardiac clearance for right VATS procedure. Pre-op medical clearance for VATS procedure Stress test done this morning, results pending. Case discussed with attending, Dr. Fernandez. <Renzo Fernandez - Last Filed: 09/07/17 06:49> Objective - Vital Signs/Intake and Output Vital Signs (last 24 hours): Temp Pulse Resp BP Pulse Ox 98.3 F 76 20 139/69 98 09/07/17 05:21 09/07/17 05:21 09/07/17 05:21 09/07/17 05:21 09/07/17 05:21 Intake and Output: 09/06/17 09/07/17 18:59 06:59 Intake Total 1750 Balance 1750 - Medications Medications: Current Medications Acetaminophen (Tylenol 325mg Tab) 650 mg PO Q6 PRN PRN Reason: Pain, moderate (4-7) Last Admin: 09/01/17 21:39 Dose: 650 mg Acetylcysteine (Acetylcysteine 20%) 2 ml INH RBID [facility] Last Admin: 09/06/17 19:27 Dose: 2 ml Albuterol Sulfate (Albuterol 0.083% Inhal Carmen (2.5 Mg/3 Ml) Ud) 2.5 mg INH RQ4 PRN PRN Reason: Shortness of Breath Albuterol/Ipratropium (Duoneb 3 Mg/0.5 Mg (3 Ml) Ud) 3 ml INH RQID [facility] Last Admin: 09/06/17 19:27 Dose: 3 ml Docusate Sodium (Colace) 200 mg PO DAILY [facility] Last Admin: 09/06/17 08:17 Dose: 200 mg Meropenem 1 gm/ Sodium (Chloride) 100 mls @ 100 mls/hr IVPB Q12H [facility] PRN Reason: Protocol Last Admin: 09/07/17 00:40 Dose: 100 mls/hr Latanoprost (Xalatan Opht) 1 drop OU DAILY [facility] Last Admin: 09/06/17 10:02 Dose: 1 drop Losartan Potassium (Cozaar) 100 mg PO DAILY [facility] Last Admin: 09/06/17 08:18 Dose: 100 mg Memantine (Namenda) 10 mg PO BID [facility] Last Admin: 09/06/17 16:24 Dose: 10 mg Metoprolol Succinate (Toprol Xl) 50 mg PO DAILY [facility] Last Admin: 09/06/17 08:19 Dose: 50 mg Montelukast Sodium (Singulair) 10 mg PO DAILY [facility] Last Admin: 09/06/17 08:19 Dose: 10 mg Nitroglycerin (Nitrostat Sl Tab) 0.4 mg SL Q5M PRN PRN Reason: Pain, moderate (4-7) Last Admin: 09/03/17 16:09 Dose: 0.4 mg Nystatin (Nystop Topical Powder) 1 applic TOP TID [facility] Last Admin: 09/06/17 16:24 Dose: 1 applic Nystatin (Nystatin Oral Susp) 5 ml PO QID [facility] Last Admin: 09/06/17 21:11 Dose: 5 ml Pantoprazole Sodium (Protonix Ec Tab) 40 mg PO DAILY [facility] Last Admin: 09/06/17 08:18 Dose: 40 mg Paroxetine HCl (Paxil) 20 mg PO DAILY [facility] Last Admin: 09/06/17 08:18 Dose: 20 mg Pravastatin Sodium (Pravachol) 20 mg PO HS [facility] Last Admin: 09/06/17 21:11 Dose: 20 mg - Labs Labs: 09/03/17 04:50 09/03/17 04:50 PT 12.6 Seconds (9.8-13.1) 08/27/17 10:30 INR 1.1 (0.9-1.2) 08/27/17 10:30 APTT 30.0 Seconds (25.6-37.1) 08/27/17 10:30 Attending/Attestation - Attestation I have personally seen and examined this patient.: Yes I have fully participated in the care of the patient.: Yes I have reviewed all pertinent clinical information, including history, physical exam and plan: Yes
[2017-09-05] MEDS: Acetylcysteine 20% Inhal Soln (4ml) INH SCH ×2 (07:40→19:27)
[2017-09-05] MEDS: Albuterol-Ipratrop 3 mg / 0.5 (3 ml) UD INH SCH ×4 (07:40→19:27)
--- NOTE | 2017-09-05 08:11 | CP.PCM.PN ---
Subjective - Date & Time of Evaluation Date of Evaluation: 09/05/17 Time of Evaluation: 08:09 - Subjective Subjective: Cardiothoracic Surgery Progress Note for Dr. Clinton This patient was seen and examined this AM at bedside. No acute events reported , she is laying comfortable in bed receiving a breathing treatment, she denies CP or SOB. Objective - Vital Signs/Intake and Output Vital Signs (last 24 hours): Temp Pulse Resp BP Pulse Ox 98.5 F 71 16 154/65 H 100 09/05/17 08:08 09/05/17 08:08 09/05/17 08:08 09/05/17 08:08 09/05/17 08:08 Intake and Output: 09/05/17 09/05/17 06:59 18:59 Intake Total 400 Balance 400 - Medications Medications: Current Medications Acetaminophen (Tylenol 325mg Tab) 650 mg PO Q6 PRN PRN Reason: Pain, moderate (4-7) Last Admin: 09/01/17 21:39 Dose: 650 mg Acetylcysteine (Acetylcysteine 20%) 2 ml INH RBID [facility] Last Admin: 09/05/17 07:40 Dose: 2 ml Albuterol Sulfate (Albuterol 0.083% Inhal Carmen (2.5 Mg/3 Ml) Ud) 2.5 mg INH RQ4 PRN PRN Reason: Shortness of Breath Albuterol/Ipratropium (Duoneb 3 Mg/0.5 Mg (3 Ml) Ud) 3 ml INH RQID [facility] Last Admin: 09/05/17 07:40 Dose: 3 ml Docusate Sodium (Colace) 200 mg PO DAILY [facility] Last Admin: 09/04/17 09:10 Dose: Not Given Enoxaparin Sodium (Lovenox) 40 mg SC DAILY [facility] PRN Reason: Protocol Last Admin: 09/04/17 12:45 Dose: 40 mg Meropenem 1 gm/ Sodium (Chloride) 100 mls @ 100 mls/hr IVPB Q12@0000,1200 [facility] PRN Reason: Protocol Last Admin: 09/04/17 23:37 Dose: 100 mls/hr Latanoprost (Xalatan Opht) 1 drop OU DAILY [facility] Last Admin: 09/04/17 09:14 Dose: 1 drop Losartan Potassium (Cozaar) 100 mg PO DAILY [facility] Last Admin: 09/04/17 09:10 Dose: Not Given Memantine (Namenda) 10 mg PO BID [facility] Last Admin: 09/04/17 17:43 Dose: 10 mg Metoprolol Succinate (Toprol Xl) 50 mg PO DAILY [facility] Last Admin: 09/04/17 09:12 Dose: Not Given Montelukast Sodium (Singulair) 10 mg PO DAILY [facility] Last Admin: 09/04/17 09:11 Dose: Not Given Nitroglycerin (Nitrostat Sl Tab) 0.4 mg SL Q5M PRN PRN Reason: Pain, moderate (4-7) Last Admin: 09/03/17 16:09 Dose: 0.4 mg Nystatin (Nystop Topical Powder) 1 applic TOP TID [facility] Last Admin: 09/04/17 17:42 Dose: 1 applic Pantoprazole Sodium (Protonix Ec Tab) 40 mg PO DAILY [facility] Last Admin: 09/04/17 09:11 Dose: Not Given Paroxetine HCl (Paxil) 20 mg PO DAILY [facility] Last Admin: 09/04/17 09:11 Dose: Not Given Pravastatin Sodium (Pravachol) 20 mg PO HS [facility] Last Admin: 09/04/17 21:22 Dose: 20 mg - Labs Labs: 09/03/17 04:50 09/03/17 04:50 PT 12.6 Seconds (9.8-13.1) 08/27/17 10:30 INR 1.1 (0.9-1.2) 08/27/17 10:30 APTT 30.0 Seconds (25.6-37.1) 08/27/17 10:30 - Constitutional Appears: Non-toxic, No Acute Distress - Head Exam Head Exam: ATRAUMATIC, NORMAL INSPECTION - Respiratory Exam Respiratory Exam: NORMAL BREATHING PATTERN. absent: Respiratory Distress - Cardiovascular Exam Cardiovascular Exam: +S1, +S2. absent: Tachycardia - Neurological Exam Neurological Exam: Alert, Awake. absent: Oriented x3 (dementia) - Psychiatric Exam Psychiatric exam: Normal Affect, Normal Mood - Skin Skin Exam: Dry, Warm Assessment and Plan - Assessment and Plan (Free Text) Assessment: 86yo F with PMHx of dementia, HTN, OA, hyperlipidemia with recurrent right pleural effusion - VATS with biopsy and pleurodesis scheduled for 09/12 - Will follow up stress test results - Continue management per primary team - Will discuss with Dr. Mary Beth Terry PGY2
--- NOTE | 2017-09-05 09:01 | CP.PCM.PN ---
<Mahi Guerra - Last Filed: 09/05/17 12:19> Subjective - Date & Time of Evaluation Date of Evaluation: 09/05/17 Time of Evaluation: 07:30 - Subjective Subjective: Patient seen and examined with attending Dr Deja patterson. Patient awake alert, reports feeling well.Denies SOB,chest pain, SOB, nausea, vomiting, abd pain.VATS with biopsy and pleurodesis scheduled for 09/12. Esophagram ordered today. Myocardial perfusion scan: potentially ischemic myocardium involving inferior wall which represent right coronary artery territory. Objective - Vital Signs/Intake and Output Vital Signs (last 24 hours): Temp Pulse Resp BP Pulse Ox 98.5 F 71 16 154/65 H 100 09/05/17 08:08 09/05/17 08:08 09/05/17 08:08 09/05/17 08:08 09/05/17 08:08 Intake and Output: 09/05/17 09/05/17 06:59 18:59 Intake Total 400 Balance 400 - Medications Medications: Current Medications Acetaminophen (Tylenol 325mg Tab) 650 mg PO Q6 PRN PRN Reason: Pain, moderate (4-7) Last Admin: 09/01/17 21:39 Dose: 650 mg Acetylcysteine (Acetylcysteine 20%) 2 ml INH RBID [facility] Last Admin: 09/05/17 07:40 Dose: 2 ml Albuterol Sulfate (Albuterol 0.083% Inhal Carmen (2.5 Mg/3 Ml) Ud) 2.5 mg INH RQ4 PRN PRN Reason: Shortness of Breath Albuterol/Ipratropium (Duoneb 3 Mg/0.5 Mg (3 Ml) Ud) 3 ml INH RQID [facility] Last Admin: 09/05/17 07:40 Dose: 3 ml Docusate Sodium (Colace) 200 mg PO DAILY [facility] Last Admin: 09/04/17 09:10 Dose: Not Given Enoxaparin Sodium (Lovenox) 40 mg SC DAILY [facility] PRN Reason: Protocol Last Admin: 09/04/17 12:45 Dose: 40 mg Meropenem 1 gm/ Sodium (Chloride) 100 mls @ 100 mls/hr IVPB Q12@0000,1200 [facility] PRN Reason: Protocol Last Admin: 09/04/17 23:37 Dose: 100 mls/hr Latanoprost (Xalatan Opht) 1 drop OU DAILY [facility] Last Admin: 09/04/17 09:14 Dose: 1 drop Losartan Potassium (Cozaar) 100 mg PO DAILY [facility] Last Admin: 09/04/17 09:10 Dose: Not Given Memantine (Namenda) 10 mg PO BID [facility] Last Admin: 09/04/17 17:43 Dose: 10 mg Metoprolol Succinate (Toprol Xl) 50 mg PO DAILY [facility] Last Admin: 09/04/17 09:12 Dose: Not Given Montelukast Sodium (Singulair) 10 mg PO DAILY [facility] Last Admin: 09/04/17 09:11 Dose: Not Given Nitroglycerin (Nitrostat Sl Tab) 0.4 mg SL Q5M PRN PRN Reason: Pain, moderate (4-7) Last Admin: 09/03/17 16:09 Dose: 0.4 mg Nystatin (Nystop Topical Powder) 1 applic TOP TID [facility] Last Admin: 09/04/17 17:42 Dose: 1 applic Pantoprazole Sodium (Protonix Ec Tab) 40 mg PO DAILY [facility] Last Admin: 09/04/17 09:11 Dose: Not Given Paroxetine HCl (Paxil) 20 mg PO DAILY [facility] Last Admin: 09/04/17 09:11 Dose: Not Given Pravastatin Sodium (Pravachol) 20 mg PO HS [facility] Last Admin: 09/04/17 21:22 Dose: 20 mg - Labs Labs: 09/03/17 04:50 09/03/17 04:50 PT 12.6 Seconds (9.8-13.1) 08/27/17 10:30 INR 1.1 (0.9-1.2) 08/27/17 10:30 APTT 30.0 Seconds (25.6-37.1) 08/27/17 10:30 - Constitutional Appears: Non-toxic, No Acute Distress - Head Exam Head Exam: ATRAUMATIC, NORMOCEPHALIC - Eye Exam Eye Exam: Normal appearance - ENT Exam ENT Exam: Mucous Membranes Moist - Neck Exam Neck Exam: Normal Inspection - Respiratory Exam Respiratory Exam: Decreased Breath Sounds, Rales. absent: Rhonchi, Wheezes ( right lung base, scattered rales B/L ) - Cardiovascular Exam Cardiovascular Exam: REGULAR RHYTHM, +S1, +S2 - GI/Abdominal Exam GI & Abdominal Exam: Soft, Normal Bowel Sounds. absent: Tenderness - Extremities Exam Extremities Exam: Normal Inspection. absent: Joint Swelling, Pedal Edema - Back Exam Back Exam: CVA tenderness (L), CVA tenderness (R), NORMAL INSPECTION - Neurological Exam Neurological Exam: Alert, Awake, Oriented x3 - Psychiatric Exam Psychiatric exam: Normal Affect, Normal Mood - Skin Skin Exam: Intact Assessment and Plan - Assessment and Plan (Free Text) Plan: Assessment and Plan (1) Pleural effusion Assessment & Plan: Right side recurrent -Pulmunology consult appreciated: esophagram -Cardiothoracic consult appreciated pt will need VATS with lung biopsy and pleurodesis.scheduled for 09/12 -Myocardial perfusion scan: potentially ischemic myocardium involving inferior wall which represent right coronary artery territory. -Pending education general manager evaluation for findings on myocardial perfusion scan - on telemetry, no arrhythmia overnight or today (2) Chronic asthma Status: Chronic 3) HTN -chronic controlled (4) Dementia Status: Chronic (5) DVT prophylaxis Assessment & Plan: -Lovenox 40 mg sc Status: Acute <Short,Jose K - Last Filed: 09/12/17 12:33> Objective - Vital Signs/Intake and Output Vital Signs (last 24 hours): Temp Pulse Resp BP Pulse Ox 98.4 F 69 18 124/53 L 98 09/12/17 12:16 09/12/17 12:16 09/12/17 12:16 09/12/17 12:16 09/12/17 12:16 - Medications Medications: Current Medications Acetaminophen (Tylenol 325mg Tab) 650 mg PO Q6 PRN PRN Reason: Pain, moderate (4-7) Last Admin: 09/01/17 21:39 Dose: 650 mg Acetylcysteine (Acetylcysteine 20%) 2 ml INH RBID [facility] Last Admin: 09/12/17 08:10 Dose: 2 ml Albuterol Sulfate (Albuterol 0.083% Inhal Carmen (2.5 Mg/3 Ml) Ud) 2.5 mg INH RQ4 PRN PRN Reason: Shortness of Breath Albuterol/Ipratropium (Duoneb 3 Mg/0.5 Mg (3 Ml) Ud) 3 ml INH RQID [facility] Last Admin: 09/12/17 11:35 Dose: 3 ml Docusate Sodium (Colace) 200 mg PO DAILY [facility] Last Admin: 09/12/17 09:02 Dose: 200 mg Enoxaparin Sodium (Lovenox) 40 mg SC DAILY [facility] PRN Reason: Protocol Furosemide (Lasix) 20 mg PO DAILY [facility] Last Admin: 09/12/17 09:03 Dose: 20 mg Latanoprost (Xalatan Opht) 1 drop OU DAILY [facility] Last Admin: 09/12/17 09:03 Dose: 1 drop Losartan Potassium (Cozaar) 100 mg PO DAILY [facility] Last Admin: 09/12/17 09:04 Dose: 100 mg Memantine (Namenda) 10 mg PO BID [facility] Last Admin: 09/12/17 09:04 Dose: 10 mg Metoprolol Succinate (Toprol Xl) 50 mg PO DAILY [facility] Last Admin: 09/12/17 09:02 Dose: 50 mg Montelukast Sodium (Singulair) 10 mg PO DAILY [facility] Last Admin: 09/12/17 09:02 Dose: 10 mg Nitroglycerin (Nitrostat Sl Tab) 0.4 mg SL Q5M PRN PRN Reason: Pain, moderate (4-7) Last Admin: 09/03/17 16:09 Dose: 0.4 mg Nystatin (Nystop Topical Powder) 1 applic TOP TID [facility] Last Admin: 09/12/17 09:01 Dose: 1 applic Nystatin (Nystatin Oral Susp) 5 ml PO QID [facility] Last Admin: 09/12/17 09:01 Dose: 5 ml Pantoprazole Sodium (Protonix Ec Tab) 40 mg PO DAILY [facility] Last Admin: 09/12/17 09:02 Dose: 40 mg Paroxetine HCl (Paxil) 20 mg PO DAILY [facility] Last Admin: 09/12/17 09:02 Dose: 20 mg Pravastatin Sodium (Pravachol) 20 mg PO HS [facility] Last Admin: 09/11/17 21:37 Dose: 20 mg Spironolactone (Aldactone) 25 mg PO DAILY [facility] Last Admin: 09/12/17 09:01 Dose: 25 mg - Labs Labs: 09/12/17 05:02 09/12/17 05:02 PT 12.9 Seconds (9.8-13.1) 09/12/17 05:02 INR 1.2 (0.9-1.2) 09/12/17 05:02 APTT 32.7 Seconds (25.6-37.1) 09/11/17 09:02 Assessment and Plan - Assessment and Plan (Free Text) Assessment: Patient was personally seen and examined by me in rounds with residents. Available labs and diagnostic data reviewed. Case, patient's condition and management plan discussed with residents in rounds. Agree with resident's progress note. Plan: As ordered.
--- NOTE | 2017-09-05 09:01 | CARD ---
APPROVED REPORT Protocol: LEXISCAN Test Type: Stress Nuclear Medications: Tylenol 325mg, Acetylcysteine 2ml, Albuterol Docustate 200mg, Enoxaparin 40mg, Meropenem 1gm, Losartan 100mg, Mematine 10mg, Metoprolol 50mg, NTG sl, Nystatin toopical Protonix 40mg, Paxil 20mg, Provachol 20m Medical History: Hypertension, Cholesterol, OS Pneumonia, Hysterectomy, Kidney Surgery, Left hip and knee surgery, R Thoracentesis, Target HR: 136 bpm Resting ECG: normal Resting Heart Rate: 55 bpm Resting Blood Pressure: 132/49mmHg submaximum (85%): 116 bpm TEST SUMMARY [id number]. [id number]. INJECTIONNS [id number]/[id number]. INJECTIONNUC MED00:[id number]/[id number]. [id number]. POST EXERCISE Reason for Termination: Pharmacologic Stress Test Target HR: No Max HR: 75 bpm 60% of Maximum Predicted HR: 136 bpm Exercise duration: 01:00 min:sec, 0 Stage Exercise capacity: 1.0METs Max Blood Pressure: 147/63mmHg Blood Pressure response to exercise: normal resting BP - appropriate response Heart Rate response to exercise: appropriate Chest Pain: No, none Angina index: 0 Arrhythmia: No, none ST Change: No, none Deviation: 0 mm Clinical Indications Under Appropriate Use Criteria This 86-year-old female who has a history of dyslipidemia underwent this study to rule out evidence of coronary artery disease. Her resting electrocardiogram showed sinus rhythm at 57 bpm with a normal EKG pattern. Her resting blood pressure was 132/49 mmHg. Her cardiac auscultation was unremarkable. Stress EKG Interpretation The patient underwent a resting myocardial scan after 10 mCi of sestamibi was given intravenously followed 45 minutes later by myocardial scanning. An hour and a half from the initial administration of sestamibi, the patient underwent an intravenous infusion of 0.4 mg of Lexiscan given over 10 seconds followed immediately by 30 mCi of sestamibi given intravenously. And her electrocardiogram did not show any ischemic abnormalities, following Lexiscan infusion. The patient left the stress lab symptom free and hemodynamically stable. 45 minutes later she underwent a second myocardial scan. The 2 sets of images were processed. Gated and planar images were acquired. Tomographic images were examined. EXAM: Myocardial Perfusion REST/STRESS Image QualityGood Imaging Protocol The imaging protocol used to acquire images was Rest Tc-99m/stress Tc-99m 1 day Rest Spect myocardial perfusion imaging was performed in supine position 60 minutes following the injection of 10 mCi of Tc-99 Myoview. Time of rest injection: 8:20 Time of rest imagin:30 At peak stress, the patient was injected intravenously with 30mCi of Tc-99 tetrofosmin after an infusion time of minutes and seconds. Time of stress injection: 11:17 Time of stress imagin:15 Gated Stress Spect was performed 120 minutes after intravenous Tc-99 Myoview injection. The images were gated to evaluate regional wall motion and calculate ventricular ejection fraction. LV Perfusion The post Lexiscan images showed a mild degree of sestamibi uptake deficit involving the entire inferior wall which on resting images showed normal sestamibi uptake. Remaining left ventricular wall segments demonstrated normal regional sestamibi uptake. Wall Motion Gated images showed a normal-sized left ventricle with vigorous regional wall motion. Her resting left ventricular ejection fraction was calculated at 88%. CONCLUSION 1. The images were suggestive of potentially ischemic myocardium involving inferior wall which represents right coronary artery territory. Her resting left ventricular ejection fraction was 88%.
[2017-09-05] MEDS: Pantoprazole 40 mg EC Tab PO SCH (09:28)
[2017-09-05] MEDS: Enoxaparin 40 mg Syringe SC SCH (09:28)
[2017-09-05] MEDS: Latanoprost 0.005% Opht SOUTION OU SCH (09:29)
--- NOTE | 2017-09-05 09:29 | CP.PCM.PN ---
Subjective - Date & Time of Evaluation Date of Evaluation: 09/05/17 Time of Evaluation: 09:20 - Subjective Subjective: Seen on morning rounds in telemetry. Lying in bed, comfortably, having pureed breakfast. Denies any chest pains or cough, also denies SOB at rest. Vital signs have been stable, remains afebrile and mildly hypertensive. No new labs for review. Stress Myoview scan report is pending. Findings on exam are essentially the same; Dullness with very diminished breath sounds noted at the right base posterirly. Breath sounds are somewhat diminished in the remainder of both lungs. No wheezes are heard. Few scattered dry rales and occasional rhonchi are present bilaterally. Heart sounds are distant and the rhythm is regular. Tentative plan for VATS next week. Would like to see a swallow eval with esophagogram before surgery. Remaining studies from the bronchoscopy have returned w/o additional information. I spoke with her POA (Theodore) last night and explained the above to her. Objective - Vital Signs/Intake and Output Vital Signs (last 24 hours): Temp Pulse Resp BP Pulse Ox 98.5 F 71 16 154/65 H 100 09/05/17 08:08 09/05/17 08:08 09/05/17 08:08 09/05/17 08:08 09/05/17 08:08 Intake and Output: 09/04/17 09/05/17 23:59 11:59 Intake Total 400 Balance 400 - Medications Medications: Current Medications Acetaminophen (Tylenol 325mg Tab) 650 mg PO Q6 PRN PRN Reason: Pain, moderate (4-7) Last Admin: 09/01/17 21:39 Dose: 650 mg Acetylcysteine (Acetylcysteine 20%) 2 ml INH RBID [facility] Last Admin: 09/05/17 07:40 Dose: 2 ml Albuterol Sulfate (Albuterol 0.083% Inhal Carmen (2.5 Mg/3 Ml) Ud) 2.5 mg INH RQ4 PRN PRN Reason: Shortness of Breath Albuterol/Ipratropium (Duoneb 3 Mg/0.5 Mg (3 Ml) Ud) 3 ml INH RQID [facility] Last Admin: 09/05/17 07:40 Dose: 3 ml Docusate Sodium (Colace) 200 mg PO DAILY [facility] Last Admin: 09/04/17 09:10 Dose: Not Given Enoxaparin Sodium (Lovenox) 40 mg SC DAILY [facility] PRN Reason: Protocol Last Admin: 09/04/17 12:45 Dose: 40 mg Meropenem 1 gm/ Sodium (Chloride) 100 mls @ 100 mls/hr IVPB Q12@0000,1200 [facility] PRN Reason: Protocol Last Admin: 09/04/17 23:37 Dose: 100 mls/hr Latanoprost (Xalatan Opht) 1 drop OU DAILY [facility] Last Admin: 09/04/17 09:14 Dose: 1 drop Losartan Potassium (Cozaar) 100 mg PO DAILY [facility] Last Admin: 09/04/17 09:10 Dose: Not Given Memantine (Namenda) 10 mg PO BID [facility] Last Admin: 09/04/17 17:43 Dose: 10 mg Metoprolol Succinate (Toprol Xl) 50 mg PO DAILY [facility] Last Admin: 09/04/17 09:12 Dose: Not Given Montelukast Sodium (Singulair) 10 mg PO DAILY [facility] Last Admin: 09/04/17 09:11 Dose: Not Given Nitroglycerin (Nitrostat Sl Tab) 0.4 mg SL Q5M PRN PRN Reason: Pain, moderate (4-7) Last Admin: 09/03/17 16:09 Dose: 0.4 mg Nystatin (Nystop Topical Powder) 1 applic TOP TID [facility] Last Admin: 09/04/17 17:42 Dose: 1 applic Pantoprazole Sodium (Protonix Ec Tab) 40 mg PO DAILY [facility] Last Admin: 09/04/17 09:11 Dose: Not Given Paroxetine HCl (Paxil) 20 mg PO DAILY [facility] Last Admin: 09/04/17 09:11 Dose: Not Given Pravastatin Sodium (Pravachol) 20 mg PO HS [facility] Last Admin: 09/04/17 21:22 Dose: 20 mg - Labs Labs: 09/03/17 04:50 09/03/17 04:50 PT 12.6 Seconds (9.8-13.1) 08/27/17 10:30 INR 1.1 (0.9-1.2) 08/27/17 10:30 APTT 30.0 Seconds (25.6-37.1) 08/27/17 10:30 Assessment and Plan (1) Pleural effusion Status: Acute (2) Chronic asthma Status: Chronic (3) Dementia Status: Chronic
[2017-09-05] MEDS: Metoprolol Succinate 50 mg XL Tab PO SCH (09:33)
[2017-09-05] MEDS: Meropenem 1 GM in Sodium Chloride 0.9% 100 ML IVPB SCH (13:19)
--- NOTE | 2017-09-05 16:01 | CARD ---
APPROVED REPORT EKG Measurement Heart [id number] <Conclusion> NSR
--- NOTE | 2017-09-05 16:04 | CP.PCM.PN ---
Subjective - Date & Time of Evaluation Date of Evaluation: 09/05/17 Time of Evaluation: 16:02 - Subjective Subjective: Pt s/e. Clinically stable. Awating cadiology clearance pending results of stress test. For VATS, bx, decortication, on Friday next week. Objective - Vital Signs/Intake and Output Vital Signs (last 24 hours): Temp Pulse Resp BP Pulse Ox 98.2 F 69 16 110/70 98 09/05/17 12:23 09/05/17 12:23 09/05/17 12:23 09/05/17 12:23 09/05/17 12:23 Intake and Output: 09/05/17 09/05/17 06:59 18:59 Intake Total 400 Balance 400 - Medications Medications: Current Medications Acetaminophen (Tylenol 325mg Tab) 650 mg PO Q6 PRN PRN Reason: Pain, moderate (4-7) Last Admin: 09/01/17 21:39 Dose: 650 mg Acetylcysteine (Acetylcysteine 20%) 2 ml INH RBID [facility] Last Admin: 09/05/17 07:40 Dose: 2 ml Albuterol Sulfate (Albuterol 0.083% Inhal Carmen (2.5 Mg/3 Ml) Ud) 2.5 mg INH RQ4 PRN PRN Reason: Shortness of Breath Albuterol/Ipratropium (Duoneb 3 Mg/0.5 Mg (3 Ml) Ud) 3 ml INH RQID [facility] Last Admin: 09/05/17 11:53 Dose: 3 ml Docusate Sodium (Colace) 200 mg PO DAILY [facility] Last Admin: 09/05/17 09:31 Dose: 200 mg Enoxaparin Sodium (Lovenox) 40 mg SC DAILY [facility] PRN Reason: Protocol Last Admin: 09/05/17 09:28 Dose: 40 mg Meropenem 1 gm/ Sodium (Chloride) 100 mls @ 100 mls/hr IVPB Q12@0000,1200 [facility] PRN Reason: Protocol Last Admin: 09/05/17 13:19 Dose: 100 mls/hr Latanoprost (Xalatan Opht) 1 drop OU DAILY [facility] Last Admin: 09/05/17 09:29 Dose: 1 drop Losartan Potassium (Cozaar) 100 mg PO DAILY [facility] Last Admin: 09/05/17 09:30 Dose: 100 mg Memantine (Namenda) 10 mg PO BID [facility] Last Admin: 09/05/17 09:29 Dose: 10 mg Metoprolol Succinate (Toprol Xl) 50 mg PO DAILY [facility] Last Admin: 09/05/17 09:33 Dose: 50 mg Montelukast Sodium (Singulair) 10 mg PO DAILY [facility] Last Admin: 09/05/17 09:32 Dose: 10 mg Nitroglycerin (Nitrostat Sl Tab) 0.4 mg SL Q5M PRN PRN Reason: Pain, moderate (4-7) Last Admin: 09/03/17 16:09 Dose: 0.4 mg Nystatin (Nystop Topical Powder) 1 applic TOP TID [facility] Last Admin: 09/05/17 13:20 Dose: 1 applic Pantoprazole Sodium (Protonix Ec Tab) 40 mg PO DAILY [facility] Last Admin: 09/05/17 09:28 Dose: 40 mg Paroxetine HCl (Paxil) 20 mg PO DAILY [facility] Last Admin: 09/05/17 09:29 Dose: 20 mg Pravastatin Sodium (Pravachol) 20 mg PO HS [facility] Last Admin: 09/04/17 21:22 Dose: 20 mg - Labs Labs: 09/03/17 04:50 09/03/17 04:50 PT 12.6 Seconds (9.8-13.1) 08/27/17 10:30 INR 1.1 (0.9-1.2) 08/27/17 10:30 APTT 30.0 Seconds (25.6-37.1) 08/27/17 10:30
[2017-09-05] MEDS: Pravastatin Sodium 20 MG TAB PO SCH (21:51)
[2017-09-06] MEDS: Meropenem 1 GM in Sodium Chloride 0.9% 100 ML IVPB SCH ×2 (00:39→12:30)
[2017-09-06] MEDS: Acetylcysteine 20% Inhal Soln (4ml) INH SCH ×2 (07:46→19:27)
[2017-09-06] MEDS: Albuterol-Ipratrop 3 mg / 0.5 (3 ml) UD INH SCH ×4 (07:47→19:27)
[2017-09-06] MEDS: Enoxaparin 40 mg Syringe SC SCH (08:17)
[2017-09-06] MEDS: Pantoprazole 40 mg EC Tab PO SCH (08:18)
[2017-09-06] MEDS: Metoprolol Succinate 50 mg XL Tab PO SCH (08:19)
[2017-09-06] MEDS: Latanoprost 0.005% Opht SOUTION OU SCH (10:02)
--- NOTE | 2017-09-06 10:30 | PN ---
DATE: 09/06/2017 SUBJECTIVE: The patient seen and examined. Interim events noted. Consults noted and appreciated. The patient remains in Progressive Care Unit on telemetry monitoring. The patient feels okay. Denies any specific complaint. No chest pain, no shortness of breath. PHYSICAL EXAMINATION: GENERAL: The patient is in no acute distress. VITAL SIGNS: Stable. HEART: S1 and S2 normal and regular. LUNGS: Good bilateral air entry. ABDOMEN: Soft, nontender. EXTREMITIES: No edema. No calf swelling. No tenderness. No acute ischemia. CENTRAL NERVOUS SYSTEM: Essentially unchanged. DIAGNOSTIC DATA: Available diagnostic data reviewed. Telemetry monitoring does not show any significant arrhythmia. Nuclear stress test suggestive of inferior ischemia. ASSESSMENT AND PLAN: Cardiology and pulmonary followup, and Surgery followup noted and appreciated. Plan as ordered. Jose Short MD
--- NOTE | 2017-09-06 10:51 | CP.PCM.PN ---
Subjective - Date & Time of Evaluation Date of Evaluation: 09/06/17 Time of Evaluation: 10:48 - Subjective Subjective: Claims she feels quite well. Complains only of a sore throat. Stress Myoview reported, will discuss with cardiology. Pharynx is injected with erythema over soft palate. Neck is supple and trachea is midline, no visible JVD. No dullness anterior chest wall. Breath sounds present bilaterally, diminished. Breath sounds are absent in the right lower chest posteriorly. Dry to medium rales are heard on the right, no wheezes or bronchial breath sounds. Heart sounds are distant, rhythm is regular. Nystatin swish/swallow requested. Continue remainder of medical therapies. Tentative for VATS next week. Objective - Vital Signs/Intake and Output Vital Signs (last 24 hours): Temp Pulse Resp BP Pulse Ox 97.5 F L 63 20 127/55 L 100 09/06/17 08:09 09/06/17 09:00 09/06/17 08:09 09/06/17 08:19 09/06/17 08:09 Intake and Output: 09/05/17 09/06/17 23:59 11:59 Intake Total 960 200 Balance 960 200 - Medications Medications: Current Medications Acetaminophen (Tylenol 325mg Tab) 650 mg PO Q6 PRN PRN Reason: Pain, moderate (4-7) Last Admin: 09/01/17 21:39 Dose: 650 mg Acetylcysteine (Acetylcysteine 20%) 2 ml INH RBID [facility] Last Admin: 09/06/17 07:46 Dose: 2 ml Albuterol Sulfate (Albuterol 0.083% Inhal Carmen (2.5 Mg/3 Ml) Ud) 2.5 mg INH RQ4 PRN PRN Reason: Shortness of Breath Albuterol/Ipratropium (Duoneb 3 Mg/0.5 Mg (3 Ml) Ud) 3 ml INH RQID [facility] Last Admin: 09/06/17 07:47 Dose: 3 ml Docusate Sodium (Colace) 200 mg PO DAILY [facility] Last Admin: 09/06/17 08:17 Dose: 200 mg Enoxaparin Sodium (Lovenox) 40 mg SC DAILY [facility] PRN Reason: Protocol Last Admin: 09/06/17 08:17 Dose: 40 mg Meropenem 1 gm/ Sodium (Chloride) 100 mls @ 100 mls/hr IVPB Q12H [facility] PRN Reason: Protocol Latanoprost (Xalatan Opht) 1 drop OU DAILY [facility] Last Admin: 09/06/17 10:02 Dose: 1 drop Losartan Potassium (Cozaar) 100 mg PO DAILY [facility] Last Admin: 09/06/17 08:18 Dose: 100 mg Memantine (Namenda) 10 mg PO BID [facility] Last Admin: 09/06/17 08:18 Dose: 10 mg Metoprolol Succinate (Toprol Xl) 50 mg PO DAILY [facility] Last Admin: 09/06/17 08:19 Dose: 50 mg Montelukast Sodium (Singulair) 10 mg PO DAILY [facility] Last Admin: 09/06/17 08:19 Dose: 10 mg Nitroglycerin (Nitrostat Sl Tab) 0.4 mg SL Q5M PRN PRN Reason: Pain, moderate (4-7) Last Admin: 09/03/17 16:09 Dose: 0.4 mg Nystatin (Nystop Topical Powder) 1 applic TOP TID [facility] Last Admin: 09/06/17 10:02 Dose: 1 applic Pantoprazole Sodium (Protonix Ec Tab) 40 mg PO DAILY [facility] Last Admin: 09/06/17 08:18 Dose: 40 mg Paroxetine HCl (Paxil) 20 mg PO DAILY [facility] Last Admin: 09/06/17 08:18 Dose: 20 mg Pravastatin Sodium (Pravachol) 20 mg PO HS [facility] Last Admin: 09/05/17 21:51 Dose: 20 mg - Labs Labs: 09/03/17 04:50 09/03/17 04:50 PT 12.6 Seconds (9.8-13.1) 08/27/17 10:30 INR 1.1 (0.9-1.2) 08/27/17 10:30 APTT 30.0 Seconds (25.6-37.1) 08/27/17 10:30 Assessment and Plan (1) Pleural effusion Status: Acute (2) Chronic asthma Status: Chronic (3) Dementia Status: Chronic
[2017-09-06] MEDS: Nystatin 100,000 Units/ml Oral Susp 5 ml UD PO SCH ×3 (12:30→21:11)
--- NOTE | 2017-09-06 19:14 | CP.PCM.PN ---
Subjective - Date & Time of Evaluation Date of Evaluation: 09/06/17 Time of Evaluation: 06:45 - Subjective Subjective: CT surgery progress note for Dr. Morenita Smith, PGY-1 Pt S & E at bedside. Pt sleeping, arousable. Denies SOB, chest pain, abdominal pain, N & V, F & C, other complaints. No acute events as per nursing. Objective - Vital Signs/Intake and Output Vital Signs (last 24 hours): Temp Pulse Resp BP Pulse Ox 98.4 F 62 17 128/66 92 L 09/06/17 16:39 09/06/17 16:39 09/06/17 16:39 09/06/17 16:39 09/06/17 16:39 - Medications Medications: Current Medications Acetaminophen (Tylenol 325mg Tab) 650 mg PO Q6 PRN PRN Reason: Pain, moderate (4-7) Last Admin: 09/01/17 21:39 Dose: 650 mg Acetylcysteine (Acetylcysteine 20%) 2 ml INH RBID [facility] Last Admin: 09/06/17 07:46 Dose: 2 ml Albuterol Sulfate (Albuterol 0.083% Inhal Carmen (2.5 Mg/3 Ml) Ud) 2.5 mg INH RQ4 PRN PRN Reason: Shortness of Breath Albuterol/Ipratropium (Duoneb 3 Mg/0.5 Mg (3 Ml) Ud) 3 ml INH RQID [facility] Last Admin: 09/06/17 15:50 Dose: 3 ml Docusate Sodium (Colace) 200 mg PO DAILY [facility] Last Admin: 09/06/17 08:17 Dose: 200 mg Meropenem 1 gm/ Sodium (Chloride) 100 mls @ 100 mls/hr IVPB Q12H [facility] PRN Reason: Protocol Last Admin: 09/06/17 12:30 Dose: 100 mls/hr Latanoprost (Xalatan Opht) 1 drop OU DAILY [facility] Last Admin: 09/06/17 10:02 Dose: 1 drop Losartan Potassium (Cozaar) 100 mg PO DAILY [facility] Last Admin: 09/06/17 08:18 Dose: 100 mg Memantine (Namenda) 10 mg PO BID [facility] Last Admin: 09/06/17 16:24 Dose: 10 mg Metoprolol Succinate (Toprol Xl) 50 mg PO DAILY [facility] Last Admin: 09/06/17 08:19 Dose: 50 mg Montelukast Sodium (Singulair) 10 mg PO DAILY [facility] Last Admin: 09/06/17 08:19 Dose: 10 mg Nitroglycerin (Nitrostat Sl Tab) 0.4 mg SL Q5M PRN PRN Reason: Pain, moderate (4-7) Last Admin: 09/03/17 16:09 Dose: 0.4 mg Nystatin (Nystop Topical Powder) 1 applic TOP TID [facility] Last Admin: 09/06/17 16:24 Dose: 1 applic Nystatin (Nystatin Oral Susp) 5 ml PO QID [facility] Last Admin: 09/06/17 16:24 Dose: 5 ml Pantoprazole Sodium (Protonix Ec Tab) 40 mg PO DAILY [facility] Last Admin: 09/06/17 08:18 Dose: 40 mg Paroxetine HCl (Paxil) 20 mg PO DAILY [facility] Last Admin: 09/06/17 08:18 Dose: 20 mg Pravastatin Sodium (Pravachol) 20 mg PO HS [facility] Last Admin: 09/05/17 21:51 Dose: 20 mg - Labs Labs: 09/03/17 04:50 09/03/17 04:50 PT 12.6 Seconds (9.8-13.1) 08/27/17 10:30 INR 1.1 (0.9-1.2) 08/27/17 10:30 APTT 30.0 Seconds (25.6-37.1) 08/27/17 10:30 - Constitutional Appears: Non-toxic, No Acute Distress - Head Exam Head Exam: ATRAUMATIC, NORMAL INSPECTION, NORMOCEPHALIC - Eye Exam Eye Exam: EOMI, Normal appearance - ENT Exam ENT Exam: Mucous Membranes Moist, Normal Exam - Neck Exam Neck Exam: Full ROM, Normal Inspection - Respiratory Exam Respiratory Exam: Decreased Breath Sounds (over right base), NORMAL BREATHING PATTERN. absent: Rales, Rhonchi, Wheezes, Respiratory Distress - Cardiovascular Exam Cardiovascular Exam: REGULAR RHYTHM, +S1, +S2 - GI/Abdominal Exam GI & Abdominal Exam: Soft, Normal Bowel Sounds. absent: Tenderness - Extremities Exam Extremities Exam: Normal Inspection - Neurological Exam Neurological Exam: Alert, Awake. absent: Oriented x3 (demented) - Psychiatric Exam Psychiatric exam: Normal Affect, Normal Mood - Skin Skin Exam: Dry, Intact, Normal Color, Warm Assessment and Plan - Assessment and Plan (Free Text) Assessment: 86yo F with PMHx of dementia, HTN, OA, hyperlipidemia with recurrent right pleural effusion Plan: Stress test suggestive of potentially ischemic myocardium involving inferior wall- represnents Right coronary artery territory. Resting LVEF = 88% Need cardiac clearance/intervention prior to CT surgical intervention Plan for VATS w/biopsy & pleurodesis on 09/12 Further mgmt as per primary team DW attending Sarah, PGY-1
[2017-09-06] MEDS: Pravastatin Sodium 20 MG TAB PO SCH (21:11)
[2017-09-07] MEDS: Meropenem 1 GM in Sodium Chloride 0.9% 100 ML IVPB SCH ×2 (00:40→12:41)
--- NOTE | 2017-09-07 06:52 | CP.PCM.PN ---
Subjective - Date & Time of Evaluation Date of Evaluation: 09/06/17 Time of Evaluation: 11:00 - Subjective Subjective: pt laying in bed , denies any complaints stress test suggestive of inferior wall ischemia Objective - Vital Signs/Intake and Output Vital Signs (last 24 hours): Temp Pulse Resp BP Pulse Ox 98.3 F 76 20 139/69 98 09/07/17 05:21 09/07/17 05:21 09/07/17 05:21 09/07/17 05:21 09/07/17 05:21 Intake and Output: 09/06/17 09/07/17 18:59 06:59 Intake Total 1750 Balance 1750 - Medications Medications: Current Medications Acetaminophen (Tylenol 325mg Tab) 650 mg PO Q6 PRN PRN Reason: Pain, moderate (4-7) Last Admin: 09/01/17 21:39 Dose: 650 mg Acetylcysteine (Acetylcysteine 20%) 2 ml INH RBID [facility] Last Admin: 09/06/17 19:27 Dose: 2 ml Albuterol Sulfate (Albuterol 0.083% Inhal Carmen (2.5 Mg/3 Ml) Ud) 2.5 mg INH RQ4 PRN PRN Reason: Shortness of Breath Albuterol/Ipratropium (Duoneb 3 Mg/0.5 Mg (3 Ml) Ud) 3 ml INH RQID [facility] Last Admin: 09/06/17 19:27 Dose: 3 ml Docusate Sodium (Colace) 200 mg PO DAILY [facility] Last Admin: 09/06/17 08:17 Dose: 200 mg Meropenem 1 gm/ Sodium (Chloride) 100 mls @ 100 mls/hr IVPB Q12H [facility] PRN Reason: Protocol Last Admin: 09/07/17 00:40 Dose: 100 mls/hr Latanoprost (Xalatan Opht) 1 drop OU DAILY [facility] Last Admin: 09/06/17 10:02 Dose: 1 drop Losartan Potassium (Cozaar) 100 mg PO DAILY [facility] Last Admin: 09/06/17 08:18 Dose: 100 mg Memantine (Namenda) 10 mg PO BID [facility] Last Admin: 09/06/17 16:24 Dose: 10 mg Metoprolol Succinate (Toprol Xl) 50 mg PO DAILY [facility] Last Admin: 09/06/17 08:19 Dose: 50 mg Montelukast Sodium (Singulair) 10 mg PO DAILY [facility] Last Admin: 09/06/17 08:19 Dose: 10 mg Nitroglycerin (Nitrostat Sl Tab) 0.4 mg SL Q5M PRN PRN Reason: Pain, moderate (4-7) Last Admin: 09/03/17 16:09 Dose: 0.4 mg Nystatin (Nystop Topical Powder) 1 applic TOP TID [facility] Last Admin: 09/06/17 16:24 Dose: 1 applic Nystatin (Nystatin Oral Susp) 5 ml PO QID [facility] Last Admin: 09/06/17 21:11 Dose: 5 ml Pantoprazole Sodium (Protonix Ec Tab) 40 mg PO DAILY [facility] Last Admin: 09/06/17 08:18 Dose: 40 mg Paroxetine HCl (Paxil) 20 mg PO DAILY [facility] Last Admin: 09/06/17 08:18 Dose: 20 mg Pravastatin Sodium (Pravachol) 20 mg PO HS [facility] Last Admin: 09/06/17 21:11 Dose: 20 mg - Labs Labs: 09/03/17 04:50 09/03/17 04:50 PT 12.6 Seconds (9.8-13.1) 08/27/17 10:30 INR 1.1 (0.9-1.2) 08/27/17 10:30 APTT 30.0 Seconds (25.6-37.1) 08/27/17 10:30 - Constitutional Appears: Well - Head Exam Head Exam: ATRAUMATIC, NORMAL INSPECTION, NORMOCEPHALIC - Eye Exam Eye Exam: EOMI, Normal appearance, PERRL Pupil Exam: NORMAL ACCOMODATION, PERRL - ENT Exam ENT Exam: Mucous Membranes Moist, Normal Exam - Neck Exam Neck Exam: Full ROM, Normal Inspection. absent: Lymphadenopathy - Respiratory Exam Respiratory Exam: Prolonged Expiratory Phase, Rales, NORMAL BREATHING PATTERN - Cardiovascular Exam Cardiovascular Exam: REGULAR RHYTHM, +S1, +S2, Murmur - GI/Abdominal Exam GI & Abdominal Exam: Soft, Normal Bowel Sounds. absent: Tenderness - Extremities Exam Extremities Exam: Full ROM, Normal Capillary Refill, Normal Inspection. absent : Joint Swelling, Pedal Edema - Back Exam Back Exam: NORMAL INSPECTION - Neurological Exam Neurological Exam: Alert, Awake, CN II-XII Intact, Oriented x3 - Psychiatric Exam Psychiatric exam: Normal Affect, Normal Mood - Skin Skin Exam: Dry, Intact, Normal Color, Warm Assessment and Plan (1) Preop cardiovascular exam Assessment & Plan: stress test suggestive of ischemia in inferior wall keep pt on asa, bb, statins plan for left heart cath after discussing with primary team and family tentatively to be arranged on Friday at Status: Acute (2) Pleural effusion Status: Acute (3) Chronic asthma Status: Chronic (4) Hyperlipidemia Status: Chronic (5) Hypertension Status: Chronic
[2017-09-07] MEDS: Albuterol-Ipratrop 3 mg / 0.5 (3 ml) UD INH SCH ×4 (07:44→19:45)
[2017-09-07] MEDS: Acetylcysteine 20% Inhal Soln (4ml) INH SCH ×2 (07:44→19:45)
[2017-09-07 08:05] LABS: HEMOGLOBIN 11.3 g/dL (12.0-16.0); MEAN CELL VOLUME 79.5 fl (81.0-99.0); MEAN CORPUSCULAR HEMOGLOBIN 25.5 pg (27.0-31.0); MEAN CORPUSCULAR HGB CONC 32.1 g/dL (33.0-37.0); RBC 4.42 Mil/uL (3.80-5.20); WHITE BLOOD COUNT 6.8 K/uL (4.8-10.8)
[2017-09-07 08:28] LABS: ALBUMIN 3.4 g/dL (3.5-5.0); ALT/SGPT 35 U/L (9-52); AST/SGOT 34 U/L (14-36); BLOOD UREA NITROGEN 15 mg/dl (7-17); CALCIUM 8.4 mg/dL (8.4-10.2); GFR AFRICAN-AMERICAN > 60; GFR NON-AFRICAN AMERICAN > 60
--- NOTE | 2017-09-07 09:24 | CP.PCM.PN ---
Subjective - Date & Time of Evaluation Date of Evaluation: 09/07/17 Time of Evaluation: 08:45 - Subjective Subjective: CT surgery progress note for Dr. Morenita Smith, PGY-1 Pt S & E at bedside. Pt awake. Denies SOB, chest pain, abdominal pain, N & V, F & C, other complaints. No acute events as per nursing. Pt stable. Objective - Vital Signs/Intake and Output Vital Signs (last 24 hours): Temp Pulse Resp BP Pulse Ox 98.1 F 58 L 20 143/87 100 09/07/17 08:15 09/07/17 08:15 09/07/17 08:15 09/07/17 08:15 09/07/17 08:15 Intake and Output: 09/07/17 09/07/17 06:59 18:59 Intake Total 1750 Balance 1750 - Medications Medications: Current Medications Acetaminophen (Tylenol 325mg Tab) 650 mg PO Q6 PRN PRN Reason: Pain, moderate (4-7) Last Admin: 09/01/17 21:39 Dose: 650 mg Acetylcysteine (Acetylcysteine 20%) 2 ml INH RBID [facility] Last Admin: 09/07/17 07:44 Dose: 2 ml Albuterol Sulfate (Albuterol 0.083% Inhal Carmen (2.5 Mg/3 Ml) Ud) 2.5 mg INH RQ4 PRN PRN Reason: Shortness of Breath Albuterol/Ipratropium (Duoneb 3 Mg/0.5 Mg (3 Ml) Ud) 3 ml INH RQID [facility] Last Admin: 09/07/17 07:44 Dose: 3 ml Docusate Sodium (Colace) 200 mg PO DAILY [facility] Last Admin: 09/06/17 08:17 Dose: 200 mg Meropenem 1 gm/ Sodium (Chloride) 100 mls @ 100 mls/hr IVPB Q12H [facility] PRN Reason: Protocol Last Admin: 09/07/17 00:40 Dose: 100 mls/hr Latanoprost (Xalatan Opht) 1 drop OU DAILY [facility] Last Admin: 09/06/17 10:02 Dose: 1 drop Losartan Potassium (Cozaar) 100 mg PO DAILY [facility] Last Admin: 09/06/17 08:18 Dose: 100 mg Memantine (Namenda) 10 mg PO BID [facility] Last Admin: 09/06/17 16:24 Dose: 10 mg Metoprolol Succinate (Toprol Xl) 50 mg PO DAILY [facility] Last Admin: 09/06/17 08:19 Dose: 50 mg Montelukast Sodium (Singulair) 10 mg PO DAILY [facility] Last Admin: 09/06/17 08:19 Dose: 10 mg Nitroglycerin (Nitrostat Sl Tab) 0.4 mg SL Q5M PRN PRN Reason: Pain, moderate (4-7) Last Admin: 09/03/17 16:09 Dose: 0.4 mg Nystatin (Nystop Topical Powder) 1 applic TOP TID [facility] Last Admin: 09/06/17 16:24 Dose: 1 applic Nystatin (Nystatin Oral Susp) 5 ml PO QID [facility] Last Admin: 09/06/17 21:11 Dose: 5 ml Pantoprazole Sodium (Protonix Ec Tab) 40 mg PO DAILY [facility] Last Admin: 09/06/17 08:18 Dose: 40 mg Paroxetine HCl (Paxil) 20 mg PO DAILY [facility] Last Admin: 09/06/17 08:18 Dose: 20 mg Pravastatin Sodium (Pravachol) 20 mg PO HS [facility] Last Admin: 09/06/17 21:11 Dose: 20 mg - Labs Labs: 09/07/17 07:40 09/07/17 07:40 PT 12.6 Seconds (9.8-13.1) 08/27/17 10:30 INR 1.1 (0.9-1.2) 08/27/17 10:30 APTT 30.0 Seconds (25.6-37.1) 08/27/17 10:30 - Constitutional Appears: Non-toxic, No Acute Distress - Head Exam Head Exam: ATRAUMATIC, NORMAL INSPECTION, NORMOCEPHALIC - Eye Exam Eye Exam: EOMI, Normal appearance - ENT Exam ENT Exam: Mucous Membranes Moist, Normal Exam - Neck Exam Neck Exam: Full ROM, Normal Inspection - Respiratory Exam Respiratory Exam: Decreased Breath Sounds (right base), NORMAL BREATHING PATTERN. absent: Chest Wall Tenderness, Rales, Rhonchi, Wheezes, Respiratory Distress - Cardiovascular Exam Cardiovascular Exam: REGULAR RHYTHM, +S1, +S2 - GI/Abdominal Exam GI & Abdominal Exam: Soft, Normal Bowel Sounds. absent: Tenderness - Extremities Exam Extremities Exam: Normal Inspection - Neurological Exam Neurological Exam: Alert, Awake. absent: Oriented x3 - Psychiatric Exam Psychiatric exam: Normal Affect, Normal Mood - Skin Skin Exam: Dry, Intact, Normal Color, Warm Assessment and Plan - Assessment and Plan (Free Text) Assessment: 86yo F with PMHx of dementia, HTN, OA, hyperlipidemia with recurrent right pleural effusion Plan: Awaiting cardiac clearance/intervention prior to CT surgical intervention Plan for VATS w/biopsy & pleurodesis on 09/12 Further mgmt as per primary team DW attending Sarah, PGY-1
[2017-09-07] MEDS: Nystatin 100,000 Units/ml Oral Susp 5 ml UD PO SCH ×4 (09:30→21:16)
[2017-09-07] MEDS: Pantoprazole 40 mg EC Tab PO SCH (09:31)
[2017-09-07] MEDS: Latanoprost 0.005% Opht SOUTION OU SCH (09:41)
[2017-09-07] MEDS: Metoprolol Succinate 50 mg XL Tab PO SCH (09:41)
--- NOTE | 2017-09-07 12:12 | PN ---
DATE: 09/07/2017 SUBJECTIVE: The patient is seen and examined. Interim events noted. Consults noted and appreciated. Pulmonary, Cardiology and Surgical consult noted and appreciated. The patient is for cardiac cath on Friday. Denies any chest pain. No shortness of breath at this time. PHYSICAL EXAMINATION: GENERAL: The patient is in no acute distress. VITAL SIGNS: Stable. HEART: S1, S2, normal, regular. LUNGS: Good bilateral air entry.. ABDOMEN: Soft, nontender. EXTREMITIES: No edema. No calf swelling. No tenderness. No acute ischemia. ECONOMIC DEVELOPER: Essentially unchanged. DIAGNOSTIC DATA: Available diagnostic data reviewed. ASSESSMENT AND PLAN: Overall, the patient's general medical condition is stable. Plan as ordered. Jose Short MD
[2017-09-07] MEDS: Pravastatin Sodium 20 MG TAB PO SCH (21:18)
[2017-09-08] MEDS: Meropenem 1 GM in Sodium Chloride 0.9% 100 ML IVPB SCH ×2 (00:38→12:40)
[2017-09-08 06:07] LABS: HEMOGLOBIN 10.4 g/dL (12.0-16.0); MEAN CELL VOLUME 78.8 fl (81.0-99.0); MEAN CORPUSCULAR HEMOGLOBIN 25.5 pg (27.0-31.0); MEAN CORPUSCULAR HGB CONC 32.3 g/dL (33.0-37.0); RBC 4.07 Mil/uL (3.80-5.20); RED CELL DISTRIBUTION WIDTH 14.7 % (11.5-14.5); WHITE BLOOD COUNT 7.3 K/uL (4.8-10.8)
[2017-09-08] MEDS: Acetylcysteine 20% Inhal Soln (4ml) INH SCH ×2 (07:24→19:43)
[2017-09-08] MEDS: Albuterol-Ipratrop 3 mg / 0.5 (3 ml) UD INH SCH ×4 (07:24→19:43)
[2017-09-08 08:06] LABS: ALT/SGPT 29 U/L (9-52); AST/SGOT 23 U/L (14-36); BLOOD UREA NITROGEN 15 mg/dl (7-17); CALCIUM 8.8 mg/dL (8.4-10.2); GFR AFRICAN-AMERICAN > 60; GFR NON-AFRICAN AMERICAN > 60
[2017-09-08] MEDS: Nystatin 100,000 Units/ml Oral Susp 5 ml UD PO SCH ×4 (09:57→21:16)
[2017-09-08] MEDS: Pantoprazole 40 mg EC Tab PO SCH (09:57)
[2017-09-08] MEDS: Metoprolol Succinate 50 mg XL Tab PO SCH (10:01)
[2017-09-08] MEDS: Latanoprost 0.005% Opht SOUTION OU SCH (10:03)
--- NOTE | 2017-09-08 10:06 | PN ---
DATE: 09/08/2017 SUBJECTIVE: The patient is seen and examined. Interim events noted. Consults noted and appreciated. The patient remains in Progressive Care Unit on telemetry monitoring. Feels okay. Denies any chest pain or shortness of breath. Complains of fatigue. PHYSICAL EXAMINATION GENERAL: The patient is in no acute distress. VITAL SIGNS: Stable. HEART: S1 and S2 normal, regular. LUNGS: Good bilateral air exchange. ABDOMEN: Soft and nontender. EXTREMITIES: No edema. No calf swelling. No tenderness. No acute ischemia. CENTRAL NERVOUS SYSTEM: Essentially unchanged. DIAGNOSTIC DATA: Available diagnostic data reviewed. Telemetry monitoring does not show significant arrhythmia. ASSESSMENT AND PLAN: Overall, the patient's general medical condition is stable. Plan as ordered. Jose Short MD
[2017-09-08] MEDS: Pravastatin Sodium 20 MG TAB PO SCH (21:16)
[2017-09-09] MEDS: Meropenem 1 GM in Sodium Chloride 0.9% 100 ML IVPB SCH ×2 (01:08→17:18)
[2017-09-09 05:49] LABS: HEMOGLOBIN 10.2 g/dL (12.0-16.0); MEAN CELL VOLUME 78.3 fl (81.0-99.0); MEAN CORPUSCULAR HEMOGLOBIN 25.8 pg (27.0-31.0); RBC 3.95 Mil/uL (3.80-5.20); RED CELL DISTRIBUTION WIDTH 14.8 % (11.5-14.5); WHITE BLOOD COUNT 6.9 K/uL (4.8-10.8)
[2017-09-09 06:42] LABS: ALT/SGPT 34 U/L (9-52); AST/SGOT 23 U/L (14-36); BLOOD UREA NITROGEN 17 mg/dl (7-17); CALCIUM 8.5 mg/dL (8.4-10.2); GFR AFRICAN-AMERICAN > 60; GFR NON-AFRICAN AMERICAN > 60
[2017-09-09] MEDS: Albuterol-Ipratrop 3 mg / 0.5 (3 ml) UD INH SCH ×4 (08:01→19:48)
[2017-09-09] MEDS: Acetylcysteine 20% Inhal Soln (4ml) INH SCH ×2 (08:01→19:48)
--- NOTE | 2017-09-09 08:19 | CP.PCM.PN ---
<Mahi Guerra - Last Filed: 09/09/17 11:28> Subjective - Date & Time of Evaluation Date of Evaluation: 09/09/17 Time of Evaluation: 07:00 - Subjective Subjective: Patient seen and examined bedside with attending Dr Short. Patient awake,alert, reports feeling well. Denies chest pain, SOB, abd pain. no overnight events. Myocardial perfusion scan: potentially ischemic myocardium involving inferior wall which represent right coronary artery territory. Cardiac catherization for tomorrow VATS with biopsy and pleurodesis scheduled for 09/12. Objective - Vital Signs/Intake and Output Vital Signs (last 24 hours): Temp Pulse Resp BP Pulse Ox 98.9 F 64 18 139/75 99 09/09/17 05:35 09/09/17 05:35 09/09/17 05:35 09/09/17 05:35 09/09/17 05:35 - Medications Medications: Current Medications Acetaminophen (Tylenol 325mg Tab) 650 mg PO Q6 PRN PRN Reason: Pain, moderate (4-7) Last Admin: 09/01/17 21:39 Dose: 650 mg Acetylcysteine (Acetylcysteine 20%) 2 ml INH RBID [facility] Last Admin: 09/08/17 19:43 Dose: 2 ml Albuterol Sulfate (Albuterol 0.083% Inhal Carmen (2.5 Mg/3 Ml) Ud) 2.5 mg INH RQ4 PRN PRN Reason: Shortness of Breath Albuterol/Ipratropium (Duoneb 3 Mg/0.5 Mg (3 Ml) Ud) 3 ml INH RQID [facility] Last Admin: 09/08/17 19:43 Dose: 3 ml Docusate Sodium (Colace) 200 mg PO DAILY [facility] Last Admin: 09/08/17 09:58 Dose: 200 mg Meropenem 1 gm/ Sodium (Chloride) 100 mls @ 100 mls/hr IVPB Q12H [facility] PRN Reason: Protocol Last Admin: 09/09/17 01:08 Dose: 100 mls/hr Latanoprost (Xalatan Opht) 1 drop OU DAILY [facility] Last Admin: 09/08/17 10:03 Dose: 1 drop Losartan Potassium (Cozaar) 100 mg PO DAILY [facility] Last Admin: 09/08/17 09:59 Dose: 100 mg Memantine (Namenda) 10 mg PO BID [facility] Last Admin: 09/08/17 17:02 Dose: 10 mg Metoprolol Succinate (Toprol Xl) 50 mg PO DAILY [facility] Last Admin: 09/08/17 10:01 Dose: 50 mg Montelukast Sodium (Singulair) 10 mg PO DAILY [facility] Last Admin: 09/08/17 10:00 Dose: 10 mg Nitroglycerin (Nitrostat Sl Tab) 0.4 mg SL Q5M PRN PRN Reason: Pain, moderate (4-7) Last Admin: 09/03/17 16:09 Dose: 0.4 mg Nystatin (Nystop Topical Powder) 1 applic TOP TID [facility] Last Admin: 09/08/17 17:01 Dose: 1 applic Nystatin (Nystatin Oral Susp) 5 ml PO QID [facility] Last Admin: 09/08/17 21:16 Dose: 5 ml Pantoprazole Sodium (Protonix Ec Tab) 40 mg PO DAILY [facility] Last Admin: 09/08/17 09:57 Dose: 40 mg Paroxetine HCl (Paxil) 20 mg PO DAILY [facility] Last Admin: 09/08/17 10:00 Dose: 20 mg Pravastatin Sodium (Pravachol) 20 mg PO HS [facility] Last Admin: 09/08/17 21:16 Dose: 20 mg - Labs Labs: 09/09/17 04:20 09/09/17 04:20 PT 12.6 Seconds (9.8-13.1) 08/27/17 10:30 INR 1.1 (0.9-1.2) 08/27/17 10:30 APTT 30.0 Seconds (25.6-37.1) 08/27/17 10:30 - Constitutional Appears: Well, No Acute Distress - Head Exam Head Exam: ATRAUMATIC, NORMOCEPHALIC - Eye Exam Eye Exam: Normal appearance - ENT Exam ENT Exam: Mucous Membranes Moist - Neck Exam Neck Exam: Normal Inspection - Respiratory Exam Respiratory Exam: Decreased Breath Sounds, Rales, Wheezes Additional comments: right lung base.scattered dry rales bibasal - Cardiovascular Exam Cardiovascular Exam: REGULAR RHYTHM, +S1, +S2 - GI/Abdominal Exam GI & Abdominal Exam: Soft, Normal Bowel Sounds. absent: Tenderness - Extremities Exam Extremities Exam: Normal Inspection. absent: Pedal Edema - Neurological Exam Neurological Exam: Alert, Awake - Psychiatric Exam Psychiatric exam: Normal Affect - Skin Skin Exam: Intact Assessment and Plan - Assessment and Plan (Free Text) Plan: Assessment and Plan (1) Pleural effusion Right side recurrent -Pulmunology consult appreciated -Cardiothoracic consult appreciated pt will need VATS with lung biopsy and pleurodesis.scheduled for 09/12 -Myocardial perfusion scan: potentially ischemic myocardium involving inferior wall which represent right coronary artery territory. -Coronary catherization for tomorrow. - on telemetry, no arrhythmia overnight or today (2) Chronic asthma Status: Chronic 3) HTN -chronic controlled (4) Dementia Status: Chronic (5) DVT prophylaxis Assessment & Plan: -Lovenox 40 mg sc Status: Acute <Short,Jose K - Last Filed: 09/12/17 12:38> Objective - Vital Signs/Intake and Output Vital Signs (last 24 hours): Temp Pulse Resp BP Pulse Ox 98.4 F 69 18 124/53 L 98 09/12/17 12:16 09/12/17 12:16 09/12/17 12:16 09/12/17 12:16 09/12/17 12:16 - Medications Medications: Current Medications Acetaminophen (Tylenol 325mg Tab) 650 mg PO Q6 PRN PRN Reason: Pain, moderate (4-7) Last Admin: 09/01/17 21:39 Dose: 650 mg Acetylcysteine (Acetylcysteine 20%) 2 ml INH RBID [facility] Last Admin: 09/12/17 08:10 Dose: 2 ml Albuterol Sulfate (Albuterol 0.083% Inhal Carmen (2.5 Mg/3 Ml) Ud) 2.5 mg INH RQ4 PRN PRN Reason: Shortness of Breath Albuterol/Ipratropium (Duoneb 3 Mg/0.5 Mg (3 Ml) Ud) 3 ml INH RQID [facility] Last Admin: 09/12/17 11:35 Dose: 3 ml Docusate Sodium (Colace) 200 mg PO DAILY [facility] Last Admin: 09/12/17 09:02 Dose: 200 mg Enoxaparin Sodium (Lovenox) 40 mg SC DAILY [facility] PRN Reason: Protocol Furosemide (Lasix) 20 mg PO DAILY [facility] Last Admin: 09/12/17 09:03 Dose: 20 mg Latanoprost (Xalatan Opht) 1 drop OU DAILY [facility] Last Admin: 09/12/17 09:03 Dose: 1 drop Losartan Potassium (Cozaar) 100 mg PO DAILY [facility] Last Admin: 09/12/17 09:04 Dose: 100 mg Memantine (Namenda) 10 mg PO BID [facility] Last Admin: 09/12/17 09:04 Dose: 10 mg Metoprolol Succinate (Toprol Xl) 50 mg PO DAILY [facility] Last Admin: 09/12/17 09:02 Dose: 50 mg Montelukast Sodium (Singulair) 10 mg PO DAILY [facility] Last Admin: 09/12/17 09:02 Dose: 10 mg Nitroglycerin (Nitrostat Sl Tab) 0.4 mg SL Q5M PRN PRN Reason: Pain, moderate (4-7) Last Admin: 09/03/17 16:09 Dose: 0.4 mg Nystatin (Nystop Topical Powder) 1 applic TOP TID [facility] Last Admin: 09/12/17 09:01 Dose: 1 applic Nystatin (Nystatin Oral Susp) 5 ml PO QID [facility] Last Admin: 09/12/17 09:01 Dose: 5 ml Pantoprazole Sodium (Protonix Ec Tab) 40 mg PO DAILY [facility] Last Admin: 09/12/17 09:02 Dose: 40 mg Paroxetine HCl (Paxil) 20 mg PO DAILY [facility] Last Admin: 09/12/17 09:02 Dose: 20 mg Pravastatin Sodium (Pravachol) 20 mg PO HS [facility] Last Admin: 09/11/17 21:37 Dose: 20 mg Spironolactone (Aldactone) 25 mg PO DAILY [facility] Last Admin: 09/12/17 09:01 Dose: 25 mg - Labs Labs: 09/12/17 05:02 09/12/17 05:02 PT 12.9 Seconds (9.8-13.1) 09/12/17 05:02 INR 1.2 (0.9-1.2) 09/12/17 05:02 APTT 32.7 Seconds (25.6-37.1) 09/11/17 09:02 Assessment and Plan - Assessment and Plan (Free Text) Assessment: Patient was personally seen and examined by me in rounds with residents. Available labs and diagnostic data reviewed. Case, patient's condition and management plan discussed with residents in rounds. Agree with resident's progress note. Plan: As ordered.
--- NOTE | 2017-09-09 08:20 | CP.PCM.PN ---
Subjective - Date & Time of Evaluation Date of Evaluation: 09/09/17 Time of Evaluation: 07:30 - Subjective Subjective: CT surgery progress note for Dr. Morenita Smith, PGY-1 Pt S & E at bedside. Pt asleep but arousable to verbal stimuli. Denies problems breathing, SOB, chest pain, abdominal pain, N & V, F & C, other complaints. No acute events as per nursing. Pt stable. Objective - Vital Signs/Intake and Output Vital Signs (last 24 hours): Temp Pulse Resp BP Pulse Ox 98.9 F 64 18 139/75 99 09/09/17 05:35 09/09/17 05:35 09/09/17 05:35 09/09/17 05:35 09/09/17 05:35 - Medications Medications: Current Medications Acetaminophen (Tylenol 325mg Tab) 650 mg PO Q6 PRN PRN Reason: Pain, moderate (4-7) Last Admin: 09/01/17 21:39 Dose: 650 mg Acetylcysteine (Acetylcysteine 20%) 2 ml INH RBID [facility] Last Admin: 09/08/17 19:43 Dose: 2 ml Albuterol Sulfate (Albuterol 0.083% Inhal Carmen (2.5 Mg/3 Ml) Ud) 2.5 mg INH RQ4 PRN PRN Reason: Shortness of Breath Albuterol/Ipratropium (Duoneb 3 Mg/0.5 Mg (3 Ml) Ud) 3 ml INH RQID [facility] Last Admin: 09/08/17 19:43 Dose: 3 ml Docusate Sodium (Colace) 200 mg PO DAILY [facility] Last Admin: 09/08/17 09:58 Dose: 200 mg Meropenem 1 gm/ Sodium (Chloride) 100 mls @ 100 mls/hr IVPB Q12H [facility] PRN Reason: Protocol Last Admin: 09/09/17 01:08 Dose: 100 mls/hr Latanoprost (Xalatan Opht) 1 drop OU DAILY [facility] Last Admin: 09/08/17 10:03 Dose: 1 drop Losartan Potassium (Cozaar) 100 mg PO DAILY [facility] Last Admin: 09/08/17 09:59 Dose: 100 mg Memantine (Namenda) 10 mg PO BID [facility] Last Admin: 09/08/17 17:02 Dose: 10 mg Metoprolol Succinate (Toprol Xl) 50 mg PO DAILY [facility] Last Admin: 09/08/17 10:01 Dose: 50 mg Montelukast Sodium (Singulair) 10 mg PO DAILY [facility] Last Admin: 09/08/17 10:00 Dose: 10 mg Nitroglycerin (Nitrostat Sl Tab) 0.4 mg SL Q5M PRN PRN Reason: Pain, moderate (4-7) Last Admin: 09/03/17 16:09 Dose: 0.4 mg Nystatin (Nystop Topical Powder) 1 applic TOP TID [facility] Last Admin: 09/08/17 17:01 Dose: 1 applic Nystatin (Nystatin Oral Susp) 5 ml PO QID [facility] Last Admin: 09/08/17 21:16 Dose: 5 ml Pantoprazole Sodium (Protonix Ec Tab) 40 mg PO DAILY [facility] Last Admin: 09/08/17 09:57 Dose: 40 mg Paroxetine HCl (Paxil) 20 mg PO DAILY [facility] Last Admin: 09/08/17 10:00 Dose: 20 mg Pravastatin Sodium (Pravachol) 20 mg PO HS [facility] Last Admin: 09/08/17 21:16 Dose: 20 mg - Labs Labs: 09/09/17 04:20 09/09/17 04:20 PT 12.6 Seconds (9.8-13.1) 08/27/17 10:30 INR 1.1 (0.9-1.2) 08/27/17 10:30 APTT 30.0 Seconds (25.6-37.1) 08/27/17 10:30 - Constitutional Appears: Non-toxic, No Acute Distress - Head Exam Head Exam: ATRAUMATIC, NORMAL INSPECTION, NORMOCEPHALIC - Eye Exam Eye Exam: EOMI, Normal appearance - ENT Exam ENT Exam: Mucous Membranes Moist, Normal Exam - Neck Exam Neck Exam: Full ROM, Normal Inspection - Respiratory Exam Respiratory Exam: NORMAL BREATHING PATTERN - Cardiovascular Exam Cardiovascular Exam: REGULAR RHYTHM, +S1, +S2 - GI/Abdominal Exam GI & Abdominal Exam: Soft, Normal Bowel Sounds. absent: Distended, Firm, Guarding, Tenderness - Extremities Exam Extremities Exam: Normal Inspection - Neurological Exam Neurological Exam: Alert, Awake, CN II-XII Intact. absent: Oriented x3 Additional comments: demented - Psychiatric Exam Psychiatric exam: Normal Affect, Normal Mood - Skin Skin Exam: Dry, Intact, Normal Color, Warm Assessment and Plan - Assessment and Plan (Free Text) Assessment: 86F with recurrent right pleural effusion Plan: Awaiting cardiac clearance/intervention prior to CT surgical intervention Need family consent Plan for VATS w/biopsy & pleurodesis on 09/12 Further mgmt as per primary team DW attending Sarah, PGY-1
--- NOTE | 2017-09-09 08:21 | CP.PCM.PN ---
Subjective - Date & Time of Evaluation Date of Evaluation: 09/09/17 Time of Evaluation: 08:17 - Subjective Subjective: Lying flat in bed, comfortably. Offers no complaints of cough or SOB. No complaint of chest pain. Tentative for cardiac cath. Vital signs have remained stable. No dependant edema, no cyanosis. Neck is supple and trachea midline. No dullness over the anterior chest wall. Breath sounds are diminished bilaterally and absent in the right base. Dry rales are heard in the LLL. No audible wheezes or bronchial breath sounds. Recurrent right pleural effusion/right basal lung density. Chronic asthma with likely overlap syndrome. Inferior wall ischemia on stress Myoview. Tentative for cardiac cath. Plan for VATS later this week. Continue present medical regimen. Objective - Vital Signs/Intake and Output Vital Signs (last 24 hours): Temp Pulse Resp BP Pulse Ox 98.9 F 64 18 139/75 99 09/09/17 05:35 09/09/17 05:35 09/09/17 05:35 09/09/17 05:35 09/09/17 05:35 - Medications Medications: Current Medications Acetaminophen (Tylenol 325mg Tab) 650 mg PO Q6 PRN PRN Reason: Pain, moderate (4-7) Last Admin: 09/01/17 21:39 Dose: 650 mg Acetylcysteine (Acetylcysteine 20%) 2 ml INH RBID [facility] Last Admin: 09/08/17 19:43 Dose: 2 ml Albuterol Sulfate (Albuterol 0.083% Inhal C[facility] (2.5 Mg/3 Ml) Ud) 2.5 mg INH RQ4 PRN PRN Reason: Shortness of Breath Albuterol/Ipratropium (Duoneb 3 Mg/0.5 Mg (3 Ml) Ud) 3 ml INH RQID [facility] Last Admin: 09/08/17 19:43 Dose: 3 ml Docusate Sodium (Colace) 200 mg PO DAILY [facility] Last Admin: 09/08/17 09:58 Dose: 200 mg Meropenem 1 gm/ Sodium (Chloride) 100 mls @ 100 mls/hr IVPB Q12H [facility] PRN Reason: Protocol Last Admin: 09/09/17 01:08 Dose: 100 mls/hr Latanoprost (Xalatan Opht) 1 drop OU DAILY [facility] Last Admin: 09/08/17 10:03 Dose: 1 drop Losartan Potassium (Cozaar) 100 mg PO DAILY [facility] Last Admin: 09/08/17 09:59 Dose: 100 mg Memantine (Namenda) 10 mg PO BID [facility] Last Admin: 09/08/17 17:02 Dose: 10 mg Metoprolol Succinate (Toprol Xl) 50 mg PO DAILY [facility] Last Admin: 09/08/17 10:01 Dose: 50 mg Montelukast Sodium (Singulair) 10 mg PO DAILY [facility] Last Admin: 09/08/17 10:00 Dose: 10 mg Nitroglycerin (Nitrostat Sl Tab) 0.4 mg SL Q5M PRN PRN Reason: Pain, moderate (4-7) Last Admin: 09/03/17 16:09 Dose: 0.4 mg Nystatin (Nystop Topical Powder) 1 applic TOP TID [facility] Last Admin: 09/08/17 17:01 Dose: 1 applic Nystatin (Nystatin Oral Susp) 5 ml PO QID [facility] Last Admin: 09/08/17 21:16 Dose: 5 ml Pantoprazole Sodium (Protonix Ec Tab) 40 mg PO DAILY [facility] Last Admin: 09/08/17 09:57 Dose: 40 mg Paroxetine HCl (Paxil) 20 mg PO DAILY [facility] Last Admin: 09/08/17 10:00 Dose: 20 mg Pravastatin Sodium (Pravachol) 20 mg PO HS [facility] Last Admin: 09/08/17 21:16 Dose: 20 mg - Labs Labs: 09/09/17 04:20 09/09/17 04:20 PT 12.6 Seconds (9.8-13.1) 08/27/17 10:30 INR 1.1 (0.9-1.2) 08/27/17 10:30 APTT 30.0 Seconds (25.6-37.1) 08/27/17 10:30 Assessment and Plan (1) Pleural effusion Status: Acute (2) Chronic asthma Status: Chronic (3) Dementia Status: Chronic (4) Myocardial ischemia Status: Acute
[2017-09-09] MEDS: Nystatin 100,000 Units/ml Oral Susp 5 ml UD PO SCH ×3 (09:45→21:50)
[2017-09-09] MEDS: Latanoprost 0.005% Opht SOUTION OU SCH (09:45)
[2017-09-09] MEDS: Metoprolol Succinate 50 mg XL Tab PO SCH (09:46)
[2017-09-09] MEDS: Pantoprazole 40 mg EC Tab PO SCH (09:47)
--- NOTE | 2017-09-09 17:31 | CP.PCM.PN ---
Subjective - Date & Time of Evaluation Date of Evaluation: 09/08/17 Time of Evaluation: 18:00 - Subjective Subjective: pt seen and evaluated stress test reviewed cath discussed with patient's niece Elly GRAHAM Objective - Vital Signs/Intake and Output Vital Signs (last 24 hours): Temp Pulse Resp BP Pulse Ox 98.7 F 66 16 126/66 98 09/09/17 16:29 09/09/17 16:29 09/09/17 16:29 09/09/17 16:29 09/09/17 16:29 - Medications Medications: Current Medications Acetaminophen (Tylenol 325mg Tab) 650 mg PO Q6 PRN PRN Reason: Pain, moderate (4-7) Last Admin: 09/01/17 21:39 Dose: 650 mg Acetylcysteine (Acetylcysteine 20%) 2 ml INH RBID [facility] Last Admin: 09/09/17 08:01 Dose: Not Given Albuterol Sulfate (Albuterol 0.083% Inhal Carmen (2.5 Mg/3 Ml) Ud) 2.5 mg INH RQ4 PRN PRN Reason: Shortness of Breath Albuterol/Ipratropium (Duoneb 3 Mg/0.5 Mg (3 Ml) Ud) 3 ml INH RQID [facility] Last Admin: 09/09/17 15:54 Dose: 3 ml Docusate Sodium (Colace) 200 mg PO DAILY [facility] Last Admin: 09/09/17 09:46 Dose: 200 mg Meropenem 1 gm/ Sodium (Chloride) 100 mls @ 100 mls/hr IVPB Q12H [facility] PRN Reason: Protocol Last Admin: 09/09/17 17:18 Dose: 100 mls/hr Latanoprost (Xalatan Opht) 1 drop OU DAILY [facility] Last Admin: 09/09/17 09:45 Dose: 1 drop Losartan Potassium (Cozaar) 100 mg PO DAILY [facility] Last Admin: 09/09/17 09:46 Dose: 100 mg Memantine (Namenda) 10 mg PO BID [facility] Last Admin: 09/09/17 17:18 Dose: 10 mg Metoprolol Succinate (Toprol Xl) 50 mg PO DAILY [facility] Last Admin: 09/09/17 09:46 Dose: 50 mg Montelukast Sodium (Singulair) 10 mg PO DAILY [facility] Last Admin: 09/09/17 09:47 Dose: 10 mg Nitroglycerin (Nitrostat Sl Tab) 0.4 mg SL Q5M PRN PRN Reason: Pain, moderate (4-7) Last Admin: 09/03/17 16:09 Dose: 0.4 mg Nystatin (Nystop Topical Powder) 1 applic TOP TID [facility] Last Admin: 09/09/17 17:18 Dose: 1 applic Nystatin (Nystatin Oral Susp) 5 ml PO QID [facility] Last Admin: 09/09/17 17:18 Dose: 5 ml Pantoprazole Sodium (Protonix Ec Tab) 40 mg PO DAILY [facility] Last Admin: 09/09/17 09:47 Dose: 40 mg Paroxetine HCl (Paxil) 20 mg PO DAILY [facility] Last Admin: 09/09/17 09:46 Dose: 20 mg Pravastatin Sodium (Pravachol) 20 mg PO HS [facility] Last Admin: 09/08/17 21:16 Dose: 20 mg - Labs Labs: 09/09/17 04:20 09/09/17 04:20 PT 12.6 Seconds (9.8-13.1) 08/27/17 10:30 INR 1.1 (0.9-1.2) 08/27/17 10:30 APTT 30.0 Seconds (25.6-37.1) 08/27/17 10:30 - Constitutional Appears: Well - Head Exam Head Exam: ATRAUMATIC, NORMAL INSPECTION, NORMOCEPHALIC - Eye Exam Eye Exam: EOMI, Normal appearance, PERRL Pupil Exam: NORMAL ACCOMODATION, PERRL - ENT Exam ENT Exam: Mucous Membranes Moist, Normal Exam - Neck Exam Neck Exam: Full ROM, Normal Inspection. absent: Lymphadenopathy - Respiratory Exam Respiratory Exam: Clear to Ausculation Bilateral, NORMAL BREATHING PATTERN - Cardiovascular Exam Cardiovascular Exam: REGULAR RHYTHM, +S1, +S2, Murmur - GI/Abdominal Exam GI & Abdominal Exam: Soft, Normal Bowel Sounds. absent: Tenderness - Extremities Exam Extremities Exam: Full ROM, Normal Capillary Refill, Normal Inspection. absent : Joint Swelling, Pedal Edema - Back Exam Back Exam: NORMAL INSPECTION - Neurological Exam Neurological Exam: Alert, Awake, CN II-XII Intact, Oriented x3 - Psychiatric Exam Psychiatric exam: Normal Affect, Normal Mood - Skin Skin Exam: Dry, Intact, Normal Color, Warm Assessment and Plan (1) Preop cardiovascular exam Assessment & Plan: plan for left heart cath once niece gets back with consent discussed stress test results with her possible cath on Friday cont BB, statins, asa Status: Acute (2) Pleural effusion Assessment & Plan: plan for VATS post cath Status: Acute (3) Chronic asthma Status: Chronic (4) Hyperlipidemia Status: Chronic (5) Hypertension Status: Chronic
--- NOTE | 2017-09-09 17:33 | CP.PCM.PN ---
Subjective - Date & Time of Evaluation Date of Evaluation: 09/09/17 Time of Evaluation: 17:31 - Subjective Subjective: Elly ( niece ) called back with consent pt feeling fine Objective - Vital Signs/Intake and Output Vital Signs (last 24 hours): Temp Pulse Resp BP Pulse Ox 98.7 F 66 16 126/66 98 09/09/17 16:29 09/09/17 16:29 09/09/17 16:29 09/09/17 16:29 09/09/17 16:29 - Medications Medications: Current Medications Acetaminophen (Tylenol 325mg Tab) 650 mg PO Q6 PRN PRN Reason: Pain, moderate (4-7) Last Admin: 09/01/17 21:39 Dose: 650 mg Acetylcysteine (Acetylcysteine 20%) 2 ml INH RBID [facility] Last Admin: 09/09/17 08:01 Dose: Not Given Albuterol Sulfate (Albuterol 0.083% Inhal Carmen (2.5 Mg/3 Ml) Ud) 2.5 mg INH RQ4 PRN PRN Reason: Shortness of Breath Albuterol/Ipratropium (Duoneb 3 Mg/0.5 Mg (3 Ml) Ud) 3 ml INH RQID [facility] Last Admin: 09/09/17 15:54 Dose: 3 ml Docusate Sodium (Colace) 200 mg PO DAILY [facility] Last Admin: 09/09/17 09:46 Dose: 200 mg Meropenem 1 gm/ Sodium (Chloride) 100 mls @ 100 mls/hr IVPB Q12H [facility] PRN Reason: Protocol Last Admin: 09/09/17 17:18 Dose: 100 mls/hr Latanoprost (Xalatan Opht) 1 drop OU DAILY [facility] Last Admin: 09/09/17 09:45 Dose: 1 drop Losartan Potassium (Cozaar) 100 mg PO DAILY [facility] Last Admin: 09/09/17 09:46 Dose: 100 mg Memantine (Namenda) 10 mg PO BID [facility] Last Admin: 09/09/17 17:18 Dose: 10 mg Metoprolol Succinate (Toprol Xl) 50 mg PO DAILY [facility] Last Admin: 09/09/17 09:46 Dose: 50 mg Montelukast Sodium (Singulair) 10 mg PO DAILY [facility] Last Admin: 09/09/17 09:47 Dose: 10 mg Nitroglycerin (Nitrostat Sl Tab) 0.4 mg SL Q5M PRN PRN Reason: Pain, moderate (4-7) Last Admin: 09/03/17 16:09 Dose: 0.4 mg Nystatin (Nystop Topical Powder) 1 applic TOP TID [facility] Last Admin: 09/09/17 17:18 Dose: 1 applic Nystatin (Nystatin Oral Susp) 5 ml PO QID [facility] Last Admin: 09/09/17 17:18 Dose: 5 ml Pantoprazole Sodium (Protonix Ec Tab) 40 mg PO DAILY [facility] Last Admin: 09/09/17 09:47 Dose: 40 mg Paroxetine HCl (Paxil) 20 mg PO DAILY [facility] Last Admin: 09/09/17 09:46 Dose: 20 mg Pravastatin Sodium (Pravachol) 20 mg PO HS [facility] Last Admin: 09/08/17 21:16 Dose: 20 mg - Labs Labs: 09/09/17 04:20 09/09/17 04:20 PT 12.6 Seconds (9.8-13.1) 08/27/17 10:30 INR 1.1 (0.9-1.2) 08/27/17 10:30 APTT 30.0 Seconds (25.6-37.1) 08/27/17 10:30 - Constitutional Appears: Well - Head Exam Head Exam: ATRAUMATIC, NORMAL INSPECTION, NORMOCEPHALIC - Eye Exam Eye Exam: EOMI, Normal appearance, PERRL Pupil Exam: NORMAL ACCOMODATION, PERRL - ENT Exam ENT Exam: Mucous Membranes Moist, Normal Exam - Neck Exam Neck Exam: Full ROM, Normal Inspection. absent: Lymphadenopathy - Respiratory Exam Respiratory Exam: Clear to Ausculation Bilateral, NORMAL BREATHING PATTERN - Cardiovascular Exam Cardiovascular Exam: REGULAR RHYTHM, +S1, +S2, Murmur - GI/Abdominal Exam GI & Abdominal Exam: Soft, Normal Bowel Sounds. absent: Tenderness - Extremities Exam Extremities Exam: Full ROM, Normal Capillary Refill, Normal Inspection. absent : Joint Swelling, Pedal Edema - Back Exam Back Exam: NORMAL INSPECTION - Neurological Exam Neurological Exam: Alert, Awake, CN II-XII Intact, Oriented x3 - Psychiatric Exam Psychiatric exam: Normal Affect, Normal Mood - Skin Skin Exam: Dry, Intact, Normal Color, Warm Assessment and Plan (1) Preop cardiovascular exam Assessment & Plan: plan for LHCx tomorrow at npo p bf asa, bb, statins Status: Acute (2) Pleural effusion Status: Acute (3) Chronic asthma Status: Chronic (4) Hyperlipidemia Status: Chronic (5) Hypertension Assessment & Plan: bb , losartan Status: Chronic
[2017-09-09] MEDS: Pravastatin Sodium 20 MG TAB PO SCH (21:50)
[2017-09-10] MEDS: Meropenem 1 GM in Sodium Chloride 0.9% 100 ML IVPB SCH ×2 (02:05→14:51)
--- NOTE | 2017-09-10 07:26 | CP.PCM.PN ---
Subjective - Date & Time of Evaluation Date of Evaluation: 09/10/17 Time of Evaluation: 07:25 - Subjective Subjective: Patient seen and examined bedside with attending Dr silva. She denies SOB, chest pain. no overnight events. Patient will go to [facility] for cardiac catheterization. Objective - Vital Signs/Intake and Output Vital Signs (last 24 hours): Temp Pulse Resp BP Pulse Ox 98.4 F 58 L 20 133/61 100 09/10/17 05:00 09/10/17 05:00 09/10/17 05:00 09/10/17 05:00 09/10/17 05:00 - Medications Medications: Current Medications Acetaminophen (Tylenol 325mg Tab) 650 mg PO Q6 PRN PRN Reason: Pain, moderate (4-7) Last Admin: 09/01/17 21:39 Dose: 650 mg Acetylcysteine (Acetylcysteine 20%) 2 ml INH RBID [facility] Last Admin: 09/09/17 19:48 Dose: 2 ml Albuterol Sulfate (Albuterol 0.083% Inhal Carmen (2.5 Mg/3 Ml) Ud) 2.5 mg INH RQ4 PRN PRN Reason: Shortness of Breath Albuterol/Ipratropium (Duoneb 3 Mg/0.5 Mg (3 Ml) Ud) 3 ml INH RQID [facility] Last Admin: 09/09/17 19:48 Dose: 3 ml Docusate Sodium (Colace) 200 mg PO DAILY [facility] Last Admin: 09/09/17 09:46 Dose: 200 mg Meropenem 1 gm/ Sodium (Chloride) 100 mls @ 100 mls/hr IVPB Q12H [facility] PRN Reason: Protocol Last Admin: 09/10/17 02:05 Dose: 100 mls/hr Latanoprost (Xalatan Opht) 1 drop OU DAILY [facility] Last Admin: 09/09/17 09:45 Dose: 1 drop Losartan Potassium (Cozaar) 100 mg PO DAILY [facility] Last Admin: 09/09/17 09:46 Dose: 100 mg Memantine (Namenda) 10 mg PO BID [facility] Last Admin: 09/09/17 17:18 Dose: 10 mg Metoprolol Succinate (Toprol Xl) 50 mg PO DAILY [facility] Last Admin: 09/09/17 09:46 Dose: 50 mg Montelukast Sodium (Singulair) 10 mg PO DAILY [facility] Last Admin: 12/26/17 09:47 Dose: 10 mg Nitroglycerin (Nitrostat Sl Tab) 0.4 mg SL Q5M PRN PRN Reason: Pain, moderate (4-7) Last Admin: 09/03/17 16:09 Dose: 0.4 mg Nystatin (Nystop Topical Powder) 1 applic TOP TID [facility] Last Admin: 09/09/17 17:18 Dose: 1 applic Nystatin (Nystatin Oral Susp) 5 ml PO QID [facility] Last Admin: 09/09/17 21:50 Dose: 5 ml Pantoprazole Sodium (Protonix Ec Tab) 40 mg PO DAILY [facility] Last Admin: 09/09/17 09:47 Dose: 40 mg Paroxetine HCl (Paxil) 20 mg PO DAILY [facility] Last Admin: 09/09/17 09:46 Dose: 20 mg Pravastatin Sodium (Pravachol) 20 mg PO HS [facility] Last Admin: 09/09/17 21:50 Dose: 20 mg - Labs Labs: 09/09/17 04:20 09/09/17 04:20 PT 12.6 Seconds (9.8-13.1) 08/27/17 10:30 INR 1.1 (0.9-1.2) 08/27/17 10:30 APTT 30.0 Seconds (25.6-37.1) 08/27/17 10:30 - Constitutional Appears: Non-toxic, No Acute Distress - Head Exam Head Exam: ATRAUMATIC, NORMOCEPHALIC - Eye Exam Eye Exam: Normal appearance - ENT Exam ENT Exam: Mucous Membranes Moist - Neck Exam Neck Exam: Normal Inspection - Respiratory Exam Respiratory Exam: Decreased Breath Sounds. absent: Rales, Rhonchi Additional comments: right lung base - Cardiovascular Exam Cardiovascular Exam: REGULAR RHYTHM, +S1, +S2 - GI/Abdominal Exam GI & Abdominal Exam: Soft, Normal Bowel Sounds. absent: Tenderness - Extremities Exam Extremities Exam: Normal Inspection. absent: Calf Tenderness, Pedal Edema - Neurological Exam Neurological Exam: Alert, Awake - Psychiatric Exam Psychiatric exam: Normal Affect - Skin Skin Exam: Intact Assessment and Plan - Assessment and Plan (Free Text) Plan: (1) Pleural effusion Right side recurrent -Pulmunology consult appreciated -Cardiothoracic consult appreciated pt will need VATS with lung biopsy and pleurodesis.scheduled for 09/12 -Myocardial perfusion scan: potentially ischemic myocardium involving inferior wall which represent right coronary artery territory. -Coronary catherization today in [facility] - on telemetry, no arrhythmia overnight or today (2) Chronic asthma Status: Chronic 3) HTN -chronic controlled (4) Dementia Status: Chronic (5) DVT prophylaxis Assessment & Plan: -Lovenox 40 mg sc Status: Acute
[2017-09-10] MEDS: Acetylcysteine 20% Inhal Soln (4ml) INH SCH ×2 (08:00→20:28)
[2017-09-10] MEDS: Albuterol-Ipratrop 3 mg / 0.5 (3 ml) UD INH SCH ×3 (08:00→20:29)
--- NOTE | 2017-09-10 08:26 | CP.PCM.PN ---
Subjective - Date & Time of Evaluation Date of Evaluation: 09/10/17 Time of Evaluation: 08:00 - Subjective Subjective: CT surgery progress note for Dr. Morenita Smith, PGY-1 Pt S & E at bedside. Pt asleep but arousable to verbal stimuli. Denies problems breathing, SOB, chest pain, abdominal pain, N & V, F & C, other complaints. No acute events as per nursing. Pt stable, ready for cardiac cath today. Objective - Vital Signs/Intake and Output Vital Signs (last 24 hours): Temp Pulse Resp BP Pulse Ox 97.9 F 61 18 120/66 100 09/10/17 08:00 09/10/17 08:00 09/10/17 08:00 09/10/17 08:00 09/10/17 08:00 - Medications Medications: Current Medications Acetaminophen (Tylenol 325mg Tab) 650 mg PO Q6 PRN PRN Reason: Pain, moderate (4-7) Last Admin: 09/01/17 21:39 Dose: 650 mg Acetylcysteine (Acetylcysteine 20%) 2 ml INH RBID [facility] Last Admin: 09/10/17 08:00 Dose: 2 ml Albuterol Sulfate (Albuterol 0.083% Inhal Carmen (2.5 Mg/3 Ml) Ud) 2.5 mg INH RQ4 PRN PRN Reason: Shortness of Breath Albuterol/Ipratropium (Duoneb 3 Mg/0.5 Mg (3 Ml) Ud) 3 ml INH RQID [facility] Last Admin: 09/10/17 08:00 Dose: 3 ml Docusate Sodium (Colace) 200 mg PO DAILY [facility] Last Admin: 09/09/17 09:46 Dose: 200 mg Meropenem 1 gm/ Sodium (Chloride) 100 mls @ 100 mls/hr IVPB Q12H [facility] PRN Reason: Protocol Last Admin: 09/10/17 02:05 Dose: 100 mls/hr Latanoprost (Xalatan Opht) 1 drop OU DAILY [facility] Last Admin: 09/09/17 09:45 Dose: 1 drop Losartan Potassium (Cozaar) 100 mg PO DAILY [facility] Last Admin: 09/09/17 09:46 Dose: 100 mg Memantine (Namenda) 10 mg PO BID [facility] Last Admin: 09/09/17 17:18 Dose: 10 mg Metoprolol Succinate (Toprol Xl) 50 mg PO DAILY [facility] Last Admin: 09/09/17 09:46 Dose: 50 mg Montelukast Sodium (Singulair) 10 mg PO DAILY [facility] Last Admin: 09/09/17 09:47 Dose: 10 mg Nitroglycerin (Nitrostat Sl Tab) 0.4 mg SL Q5M PRN PRN Reason: Pain, moderate (4-7) Last Admin: 09/03/17 16:09 Dose: 0.4 mg Nystatin (Nystop Topical Powder) 1 applic TOP TID [facility] Last Admin: 09/09/17 17:18 Dose: 1 applic Nystatin (Nystatin Oral Susp) 5 ml PO QID [facility] Last Admin: 09/09/17 21:50 Dose: 5 ml Pantoprazole Sodium (Protonix Ec Tab) 40 mg PO DAILY [facility] Last Admin: 09/09/17 09:47 Dose: 40 mg Paroxetine HCl (Paxil) 20 mg PO DAILY [facility] Last Admin: 09/09/17 09:46 Dose: 20 mg Pravastatin Sodium (Pravachol) 20 mg PO HS [facility] Last Admin: 09/09/17 21:50 Dose: 20 mg - Labs Labs: 09/09/17 04:20 09/09/17 04:20 PT 12.6 Seconds (9.8-13.1) 08/27/17 10:30 INR 1.1 (0.9-1.2) 08/27/17 10:30 APTT 30.0 Seconds (25.6-37.1) 08/27/17 10:30 - Constitutional Appears: Non-toxic, No Acute Distress - Head Exam Head Exam: ATRAUMATIC, NORMAL INSPECTION, NORMOCEPHALIC - Eye Exam Eye Exam: EOMI, Normal appearance - ENT Exam ENT Exam: Mucous Membranes Moist, Normal Exam - Neck Exam Neck Exam: Full ROM, Normal Inspection - Respiratory Exam Respiratory Exam: NORMAL BREATHING PATTERN - Cardiovascular Exam Cardiovascular Exam: REGULAR RHYTHM, +S1, +S2 - GI/Abdominal Exam GI & Abdominal Exam: Soft, Normal Bowel Sounds. absent: Tenderness - Extremities Exam Extremities Exam: Normal Inspection. absent: Pedal Edema - Neurological Exam Neurological Exam: Alert, Awake. absent: Oriented x3 (demented) - Psychiatric Exam Psychiatric exam: Normal Affect, Normal Mood - Skin Skin Exam: Dry, Intact, Normal Color, Warm Assessment and Plan - Assessment and Plan (Free Text) Assessment: 86F with recurrent right pleural effusion Plan: FU cardiac cath today Spoke with Amanda Kunz (POA, niece) regarding consent- will speak with her tomorrow Plan for VATS w/biopsy & pleurodesis on 09/12 Further mgmt as per primary team DW attending Sarah, PGY-1
[2017-09-10] MEDS: Nystatin 100,000 Units/ml Oral Susp 5 ml UD PO SCH ×4 (09:18→21:14)
[2017-09-10] MEDS: Latanoprost 0.005% Opht SOUTION OU SCH (09:19)
[2017-09-10] MEDS: Pantoprazole 40 mg EC Tab PO SCH (09:19)
[2017-09-10] MEDS: Metoprolol Succinate 50 mg XL Tab PO SCH (09:19)
--- NOTE | 2017-09-10 09:47 | CP.PCM.PN ---
Subjective - Date & Time of Evaluation Date of Evaluation: 09/10/17 Time of Evaluation: 09:29 - Subjective Subjective: Just left this facility for cardiac catheterization. Has remained clinically stable and well oxygenated. Will follow [facility]. Objective - Vital Signs/Intake and Output Vital Signs (last 24 hours): Temp Pulse Resp BP Pulse Ox 97.9 F 61 18 120/66 100 09/10/17 08:00 09/10/17 09:19 09/10/17 08:00 09/10/17 09:19 09/10/17 08:00 - Medications Medications: Current Medications Acetaminophen (Tylenol 325mg Tab) 650 mg PO Q6 PRN PRN Reason: Pain, moderate (4-7) Last Admin: 09/01/17 21:39 Dose: 650 mg Acetylcysteine (Acetylcysteine 20%) 2 ml INH RBID [facility] Last Admin: 09/10/17 08:00 Dose: 2 ml Albuterol Sulfate (Albuterol 0.083% Inhal Carmen (2.5 Mg/3 Ml) Ud) 2.5 mg INH RQ4 PRN PRN Reason: Shortness of Breath Albuterol/Ipratropium (Duoneb 3 Mg/0.5 Mg (3 Ml) Ud) 3 ml INH RQID [facility] Last Admin: 09/10/17 08:00 Dose: 3 ml Docusate Sodium (Colace) 200 mg PO DAILY [facility] Last Admin: 09/10/17 09:17 Dose: Not Given Meropenem 1 gm/ Sodium (Chloride) 100 mls @ 100 mls/hr IVPB Q12H [facility] PRN Reason: Protocol Last Admin: 09/10/17 02:05 Dose: 100 mls/hr Latanoprost (Xalatan Opht) 1 drop OU DAILY [facility] Last Admin: 09/10/17 09:19 Dose: Not Given Losartan Potassium (Cozaar) 100 mg PO DAILY [facility] Last Admin: 09/10/17 09:18 Dose: Not Given Memantine (Namenda) 10 mg PO BID [facility] Last Admin: 09/10/17 09:18 Dose: Not Given Metoprolol Succinate (Toprol Xl) 50 mg PO DAILY [facility] Last Admin: 09/10/17 09:19 Dose: Not Given Montelukast Sodium (Singulair) 10 mg PO DAILY [facility] Last Admin: 09/10/17 09:19 Dose: Not Given Nitroglycerin (Nitrostat Sl Tab) 0.4 mg SL Q5M PRN PRN Reason: Pain, moderate (4-7) Last Admin: 09/03/17 16:09 Dose: 0.4 mg Nystatin (Nystop Topical Powder) 1 applic TOP TID [facility] Last Admin: 09/10/17 09:18 Dose: Not Given Nystatin (Nystatin Oral Susp) 5 ml PO QID [facility] Last Admin: 09/10/17 09:18 Dose: Not Given Pantoprazole Sodium (Protonix Ec Tab) 40 mg PO DAILY [facility] Last Admin: 09/10/17 09:19 Dose: Not Given Paroxetine HCl (Paxil) 20 mg PO DAILY [facility] Last Admin: 09/10/17 09:18 Dose: Not Given Pravastatin Sodium (Pravachol) 20 mg PO HS [facility] Last Admin: 09/09/17 21:50 Dose: 20 mg - Labs Labs: 09/09/17 04:20 09/09/17 04:20 PT 12.6 Seconds (9.8-13.1) 08/27/17 10:30 INR 1.1 (0.9-1.2) 08/27/17 10:30 APTT 30.0 Seconds (25.6-37.1) 08/27/17 10:30 Assessment and Plan (1) Pleural effusion Status: Acute (2) Chronic asthma Status: Chronic (3) Dementia Status: Chronic (4) Myocardial ischemia Status: Acute
--- NOTE | 2017-09-10 11:17 | CP.PCM.PN ---
<Geena Pineda - Last Filed: 09/10/17 11:31> Subjective - Date & Time of Evaluation Date of Evaluation: 09/10/17 Time of Evaluation: 11:15 - Subjective Subjective: PGY2 progress note for cardiology, Dr. Fernandez Pt is seen and examined at bedside. No acute events overnight. Pt resting comfortably. Denies having any CP, SOB, abd pain, N/V/D/C, F/C. 12 point ROS are negative except for above mentioned. Objective - Vital Signs/Intake and Output Vital Signs (last 24 hours): Temp Pulse Resp BP Pulse Ox 97.9 F 61 18 120/66 100 09/10/17 08:00 09/10/17 09:19 09/10/17 08:00 09/10/17 09:19 09/10/17 08:00 - Medications Medications: Current Medications Acetaminophen (Tylenol 325mg Tab) 650 mg PO Q6 PRN PRN Reason: Pain, moderate (4-7) Last Admin: 09/01/17 21:39 Dose: 650 mg Acetylcysteine (Acetylcysteine 20%) 2 ml INH RBID [facility] Last Admin: 09/10/17 08:00 Dose: 2 ml Albuterol Sulfate (Albuterol 0.083% Inhal Carmen (2.5 Mg/3 Ml) Ud) 2.5 mg INH RQ4 PRN PRN Reason: Shortness of Breath Albuterol/Ipratropium (Duoneb 3 Mg/0.5 Mg (3 Ml) Ud) 3 ml INH RQID [facility] Last Admin: 09/10/17 08:00 Dose: 3 ml Docusate Sodium (Colace) 200 mg PO DAILY [facility] Last Admin: 09/10/17 09:17 Dose: Not Given Meropenem 1 gm/ Sodium (Chloride) 100 mls @ 100 mls/hr IVPB Q12H [facility] PRN Reason: Protocol Last Admin: 09/10/17 02:05 Dose: 100 mls/hr Latanoprost (Xalatan Opht) 1 drop OU DAILY [facility] Last Admin: 09/10/17 09:19 Dose: Not Given Losartan Potassium (Cozaar) 100 mg PO DAILY [facility] Last Admin: 09/10/17 09:18 Dose: Not Given Memantine (Namenda) 10 mg PO BID [facility] Last Admin: 09/10/17 09:18 Dose: Not Given Metoprolol Succinate (Toprol Xl) 50 mg PO DAILY [facility] Last Admin: 09/10/17 09:19 Dose: Not Given Montelukast Sodium (Singulair) 10 mg PO DAILY [facility] Last Admin: 09/10/17 09:19 Dose: Not Given Nitroglycerin (Nitrostat Sl Tab) 0.4 mg SL Q5M PRN PRN Reason: Pain, moderate (4-7) Last Admin: 09/03/17 16:09 Dose: 0.4 mg Nystatin (Nystop Topical Powder) 1 applic TOP TID [facility] Last Admin: 09/10/17 09:18 Dose: Not Given Nystatin (Nystatin Oral Susp) 5 ml PO QID [facility] Last Admin: 09/10/17 09:18 Dose: Not Given Pantoprazole Sodium (Protonix Ec Tab) 40 mg PO DAILY [facility] Last Admin: 09/10/17 09:19 Dose: Not Given Paroxetine HCl (Paxil) 20 mg PO DAILY [facility] Last Admin: 09/10/17 09:18 Dose: Not Given Pravastatin Sodium (Pravachol) 20 mg PO HS [facility] Last Admin: 09/09/17 21:50 Dose: 20 mg - Labs Labs: 09/09/17 04:20 09/09/17 04:20 PT 12.6 Seconds (9.8-13.1) 08/27/17 10:30 INR 1.1 (0.9-1.2) 08/27/17 10:30 APTT 30.0 Seconds (25.6-37.1) 08/27/17 10:30 - Constitutional Appears: Non-toxic, No Acute Distress - Head Exam Head Exam: ATRAUMATIC - ENT Exam ENT Exam: Mucous Membranes Moist - Respiratory Exam Respiratory Exam: Decreased Breath Sounds (B/L L>R). absent: Accessory Muscle Use, Rhonchi, Wheezes, Respiratory Distress, Stridor - Cardiovascular Exam Cardiovascular Exam: REGULAR RHYTHM, +S1, +S2. absent: Clicks, Rubs, Murmur - GI/Abdominal Exam GI & Abdominal Exam: Soft, Normal Bowel Sounds. absent: Distended, Firm, Guarding, Rigid, Tenderness - Extremities Exam Extremities Exam: absent: Pedal Edema, Tenderness - Neurological Exam Neurological Exam: Alert, Awake, Oriented x3 - Psychiatric Exam Psychiatric exam: Normal Affect, Normal Mood - Skin Skin Exam: Dry, Intact, Normal Color, Warm Assessment and Plan - Assessment and Plan (Free Text) Assessment: 86 year old female with past medical history of HTN, HLD, and right pleural effusion is being seen of cardiac clearance for right VATS procedure. Pre-op medical clearance for VATS procedure Cardiac cath today at [facility] Pleural effusion VATS scheduled for 09/12/17 HTN continue to monitor Currently on Cozaar and metoprolol Case discussed with attending, Dr. Fernandez. <Renzo Fernandez - Last Filed: 09/10/17 13:01> Objective - Vital Signs/Intake and Output Vital Signs (last 24 hours): Temp Pulse Resp BP Pulse Ox 97.9 F 61 18 120/66 100 09/10/17 09:00 09/10/17 09:19 09/10/17 09:00 09/10/17 09:19 09/10/17 09:00 Intake and Output: 09/10/17 09/10/17 06:59 18:59 Intake Total 100 Balance 100 - Medications Medications: Current Medications Acetaminophen (Tylenol 325mg Tab) 650 mg PO Q6 PRN PRN Reason: Pain, moderate (4-7) Last Admin: 09/01/17 21:39 Dose: 650 mg Acetylcysteine (Acetylcysteine 20%) 2 ml INH RBID [facility] Last Admin: 09/10/17 08:00 Dose: 2 ml Albuterol Sulfate (Albuterol 0.083% Inhal Carmen (2.5 Mg/3 Ml) Ud) 2.5 mg INH RQ4 PRN PRN Reason: Shortness of Breath Albuterol/Ipratropium (Duoneb 3 Mg/0.5 Mg (3 Ml) Ud) 3 ml INH RQID [facility] Last Admin: 09/10/17 11:45 Dose: Not Given Docusate Sodium (Colace) 200 mg PO DAILY [facility] Last Admin: 09/10/17 09:17 Dose: Not Given Meropenem 1 gm/ Sodium (Chloride) 100 mls @ 100 mls/hr IVPB Q12H [facility] PRN Reason: Protocol Last Admin: 09/10/17 02:05 Dose: 100 mls/hr Latanoprost (Xalatan Opht) 1 drop OU DAILY [facility] Last Admin: 09/10/17 09:19 Dose: Not Given Losartan Potassium (Cozaar) 100 mg PO DAILY [facility] Last Admin: 09/10/17 09:18 Dose: Not Given Memantine (Namenda) 10 mg PO BID [facility] Last Admin: 09/10/17 09:18 Dose: Not Given Metoprolol Succinate (Toprol Xl) 50 mg PO DAILY [facility] Last Admin: 09/10/17 09:19 Dose: Not Given Montelukast Sodium (Singulair) 10 mg PO DAILY [facility] Last Admin: 09/10/17 09:19 Dose: Not Given Nitroglycerin (Nitrostat Sl Tab) 0.4 mg SL Q5M PRN PRN Reason: Pain, moderate (4-7) Last Admin: 09/03/17 16:09 Dose: 0.4 mg Nystatin (Nystop Topical Powder) 1 applic TOP TID [facility] Last Admin: 09/10/17 09:18 Dose: Not Given Nystatin (Nystatin Oral Susp) 5 ml PO QID [facility] Last Admin: 09/10/17 09:18 Dose: Not Given Pantoprazole Sodium (Protonix Ec Tab) 40 mg PO DAILY [facility] Last Admin: 09/10/17 09:19 Dose: Not Given Paroxetine HCl (Paxil) 20 mg PO DAILY [facility] Last Admin: 09/10/17 09:18 Dose: Not Given Pravastatin Sodium (Pravachol) 20 mg PO HS [facility] Last Admin: 09/09/17 21:50 Dose: 20 mg - Labs Labs: 09/09/17 04:20 09/09/17 04:20 PT 12.6 Seconds (9.8-13.1) 08/27/17 10:30 INR 1.1 (0.9-1.2) 08/27/17 10:30 APTT 30.0 Seconds (25.6-37.1) 08/27/17 10:30 Assessment and Plan (1) Preop cardiovascular exam Status: Acute (2) Pleural effusion Status: Acute (3) Chronic asthma Status: Chronic (4) Hyperlipidemia Status: Chronic (5) Hypertension Status: Chronic Attending/Attestation - Attestation I have personally seen and examined this patient.: Yes I have fully participated in the care of the patient.: Yes I have reviewed all pertinent clinical information, including history, physical exam and plan: Yes
[2017-09-10] MEDS: Pravastatin Sodium 20 MG TAB PO SCH (21:16)
[2017-09-11] MEDS: Meropenem 1 GM in Sodium Chloride 0.9% 100 ML IVPB SCH (00:57)
--- NOTE | 2017-09-11 07:38 | CP.PCM.PN ---
Subjective - Date & Time of Evaluation Date of Evaluation: 09/11/17 Time of Evaluation: 07:25 - Subjective Subjective: Patient seen and examined bedside with attending Dr silva. Patient awake, pleasant, reports feeling well. Pt had coronary cath yest. 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 surgery scheduled for tomorrow VATS with lung biopsy and pleurodesis. She denies SOB, chest pain. no overnight events. Objective - Vital Signs/Intake and Output Vital Signs (last 24 hours): Temp Pulse Resp BP Pulse Ox 98.2 F 70 18 148/70 99 09/11/17 05:57 09/11/17 05:57 09/11/17 05:57 09/11/17 05:57 09/11/17 05:57 - Medications Medications: Current Medications Acetaminophen (Tylenol 325mg Tab) 650 mg PO Q6 PRN PRN Reason: Pain, moderate (4-7) Last Admin: 09/01/17 21:39 Dose: 650 mg Acetylcysteine (Acetylcysteine 20%) 2 ml INH RBID [facility] Last Admin: 09/10/17 20:28 Dose: 2 ml Albuterol Sulfate (Albuterol 0.083% Inhal Carmen (2.5 Mg/3 Ml) Ud) 2.5 mg INH RQ4 PRN PRN Reason: Shortness of Breath Albuterol/Ipratropium (Duoneb 3 Mg/0.5 Mg (3 Ml) Ud) 3 ml INH RQID [facility] Last Admin: 09/10/17 20:29 Dose: 3 ml Docusate Sodium (Colace) 200 mg PO DAILY [facility] Last Admin: 09/10/17 09:17 Dose: Not Given Meropenem 1 gm/ Sodium (Chloride) 100 mls @ 100 mls/hr IVPB Q12H [facility] PRN Reason: Protocol Last Admin: 09/11/17 00:57 Dose: 100 mls/hr Latanoprost (Xalatan Opht) 1 drop OU DAILY [facility] Last Admin: 09/10/17 09:19 Dose: Not Given Losartan Potassium (Cozaar) 100 mg PO DAILY [facility] Last Admin: 09/10/17 09:18 Dose: Not Given Memantine (Namenda) 10 mg PO BID [facility] Last Admin: 09/10/17 17:49 Dose: Not Given Metoprolol Succinate (Toprol Xl) 50 mg PO DAILY [facility] Last Admin: 09/10/17 09:19 Dose: Not Given Montelukast Sodium (Singulair) 10 mg PO DAILY [facility] Last Admin: 09/10/17 09:19 Dose: Not Given Nitroglycerin (Nitrostat Sl Tab) 0.4 mg SL Q5M PRN PRN Reason: Pain, moderate (4-7) Last Admin: 09/03/17 16:09 Dose: 0.4 mg Nystatin (Nystop Topical Powder) 1 applic TOP TID [facility] Last Admin: 09/10/17 17:49 Dose: Not Given Nystatin (Nystatin Oral Susp) 5 ml PO QID [facility] Last Admin: 09/10/17 21:14 Dose: 5 ml Pantoprazole Sodium (Protonix Ec Tab) 40 mg PO DAILY [facility] Last Admin: 09/10/17 09:19 Dose: Not Given Paroxetine HCl (Paxil) 20 mg PO DAILY [facility] Last Admin: 09/10/17 09:18 Dose: Not Given Pravastatin Sodium (Pravachol) 20 mg PO HS [facility] Last Admin: 09/10/17 21:16 Dose: 20 mg - Labs Labs: 09/09/17 04:20 09/09/17 04:20 PT 12.6 Seconds (9.8-13.1) 08/27/17 10:30 INR 1.1 (0.9-1.2) 08/27/17 10:30 APTT 30.0 Seconds (25.6-37.1) 08/27/17 10:30 - Constitutional Appears: Non-toxic, No Acute Distress - Head Exam Head Exam: ATRAUMATIC, NORMOCEPHALIC - Eye Exam Eye Exam: Normal appearance - ENT Exam ENT Exam: Normal Exam - Respiratory Exam Respiratory Exam: Decreased Breath Sounds. absent: Rales Additional comments: right lung base - Cardiovascular Exam Cardiovascular Exam: REGULAR RHYTHM, +S1, +S2 - GI/Abdominal Exam GI & Abdominal Exam: Soft, Normal Bowel Sounds. absent: Tenderness - Extremities Exam Extremities Exam: Normal Inspection. absent: Pedal Edema - Neurological Exam Neurological Exam: Alert, Awake - Psychiatric Exam Psychiatric exam: Normal Affect - Skin Skin Exam: Normal Color Assessment and Plan - Assessment and Plan (Free Text) Plan: Assessment/Plan (1) Pleural effusion -Right side recurrent -Pulmunology consult appreciated -Cardiothoracic consult appreciated pt will need VATS with lung biopsy and pleurodesis.scheduled for tomorrow 09/12 -Myocardial perfusion scan: potentially ischemic myocardium involving inferior wall which represent right coronary artery territory. -Coronary catherization: Nonobstructive coronary artery disease as well as spasm of the right coronary artery. Mild nonobstructive disease in the left anterior descending. Normal ejection fraction with elevated filling pressures. -Chemical Treatment Operator consult appreciated:low risk for perioperative cardiac event. pt will need low dose diuretic therapy and afterload reducers for diastolic CHF - on telemetry, no arrhythmia overnight or today (2) Chronic asthma Status: Chronic 3) HTN -chronic controlled (4) Dementia Status: Chronic (5) DVT prophylaxis -Lovenox 40 mg sc Status: Acute
[2017-09-11] MEDS: Albuterol-Ipratrop 3 mg / 0.5 (3 ml) UD INH SCH ×4 (07:57→19:27)
--- NOTE | 2017-09-11 08:02 | CP.PCM.PN ---
<Geena Pineda - Last Filed: 09/11/17 08:15> Subjective - Date & Time of Evaluation Date of Evaluation: 09/11/17 Time of Evaluation: 08:02 - Subjective Subjective: PGY2 progress note for cardiology, Dr. Fernandez Pt seen and examined at bedside. No acute events overnight. Pt underwent cardiac cath yesterday. Denies having any CP, SOB, abd pain, N/V/D/C. Objective - Vital Signs/Intake and Output Vital Signs (last 24 hours): Temp Pulse Resp BP Pulse Ox 98.2 F 70 18 148/70 99 09/11/17 05:57 09/11/17 05:57 09/11/17 05:57 09/11/17 05:57 09/11/17 05:57 - Medications Medications: Current Medications Acetaminophen (Tylenol 325mg Tab) 650 mg PO Q6 PRN PRN Reason: Pain, moderate (4-7) Last Admin: 09/01/17 21:39 Dose: 650 mg Acetylcysteine (Acetylcysteine 20%) 2 ml INH RBID [facility] Last Admin: 09/10/17 20:28 Dose: 2 ml Albuterol Sulfate (Albuterol 0.083% Inhal Carmen (2.5 Mg/3 Ml) Ud) 2.5 mg INH RQ4 PRN PRN Reason: Shortness of Breath Albuterol/Ipratropium (Duoneb 3 Mg/0.5 Mg (3 Ml) Ud) 3 ml INH RQID [facility] Last Admin: 09/11/17 07:57 Dose: 3 ml Docusate Sodium (Colace) 200 mg PO DAILY [facility] Last Admin: 09/10/17 09:17 Dose: Not Given Meropenem 1 gm/ Sodium (Chloride) 100 mls @ 100 mls/hr IVPB Q12H [facility] PRN Reason: Protocol Last Admin: 09/11/17 00:57 Dose: 100 mls/hr Latanoprost (Xalatan Opht) 1 drop OU DAILY [facility] Last Admin: 09/10/17 09:19 Dose: Not Given Losartan Potassium (Cozaar) 100 mg PO DAILY [facility] Last Admin: 09/10/17 09:18 Dose: Not Given Memantine (Namenda) 10 mg PO BID [facility] Last Admin: 09/10/17 17:49 Dose: Not Given Metoprolol Succinate (Toprol Xl) 50 mg PO DAILY [facility] Last Admin: 09/10/17 09:19 Dose: Not Given Montelukast Sodium (Singulair) 10 mg PO DAILY [facility] Last Admin: 09/10/17 09:19 Dose: Not Given Nitroglycerin (Nitrostat Sl Tab) 0.4 mg SL Q5M PRN PRN Reason: Pain, moderate (4-7) Last Admin: 09/03/17 16:09 Dose: 0.4 mg Nystatin (Nystop Topical Powder) 1 applic TOP TID [facility] Last Admin: 09/10/17 17:49 Dose: Not Given Nystatin (Nystatin Oral Susp) 5 ml PO QID [facility] Last Admin: 09/10/17 21:14 Dose: 5 ml Pantoprazole Sodium (Protonix Ec Tab) 40 mg PO DAILY [facility] Last Admin: 09/10/17 09:19 Dose: Not Given Paroxetine HCl (Paxil) 20 mg PO DAILY [facility] Last Admin: 09/10/17 09:18 Dose: Not Given Pravastatin Sodium (Pravachol) 20 mg PO HS [facility] Last Admin: 09/10/17 21:16 Dose: 20 mg - Labs Labs: 09/09/17 04:20 09/09/17 04:20 PT 12.6 Seconds (9.8-13.1) 08/27/17 10:30 INR 1.1 (0.9-1.2) 08/27/17 10:30 APTT 30.0 Seconds (25.6-37.1) 08/27/17 10:30 - Constitutional Appears: Non-toxic, No Acute Distress - Head Exam Head Exam: ATRAUMATIC - ENT Exam ENT Exam: Mucous Membranes Moist - Respiratory Exam Respiratory Exam: Decreased Breath Sounds (B/L). absent: Accessory Muscle Use, Rales, Rhonchi, Wheezes, Respiratory Distress - Cardiovascular Exam Cardiovascular Exam: REGULAR RHYTHM, +S1, +S2 - GI/Abdominal Exam GI & Abdominal Exam: Soft, Normal Bowel Sounds. absent: Distended, Firm, Guarding, Rigid, Tenderness, Organomegaly - Extremities Exam Extremities Exam: absent: Pedal Edema, Tenderness - Neurological Exam Neurological Exam: Alert, Awake, Oriented x3 - Psychiatric Exam Psychiatric exam: Normal Affect, Normal Mood - Skin Skin Exam: Dry, Intact, Normal Color, Warm Assessment and Plan - Assessment and Plan (Free Text) Assessment: 86 year old female with past medical history of HTN, HLD, and right pleural effusion is being seen of cardiac clearance for right VATS procedure. Cardiac cath procedure yesterday showed non-obstructive coronary disease as well as spasm of RCA. Mild non-obstructive LAD. Normal EF with elevated filling pressure. Recommend aggressive medical management. Pre-op medical clearance for VATS procedure Low risk for adverse cardiac event during non-cardiac VATS procedure per ACC/ AHA guidelines. 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 Fernandez. <Renzo Fernandez - Last Filed: 09/11/17 11:16> Objective - Vital Signs/Intake and Output Vital Signs (last 24 hours): Temp Pulse Resp BP Pulse Ox 98.2 F 70 18 148/70 99 09/11/17 05:57 09/11/17 05:57 09/11/17 05:57 09/11/17 05:57 09/11/17 05:57 - Medications Medications: Current Medications Acetaminophen (Tylenol 325mg Tab) 650 mg PO Q6 PRN PRN Reason: Pain, moderate (4-7) Last Admin: 09/01/17 21:39 Dose: 650 mg Acetylcysteine (Acetylcysteine 20%) 2 ml INH RBID [facility] Last Admin: 09/10/17 20:28 Dose: 2 ml Albuterol Sulfate (Albuterol 0.083% Inhal Carmen (2.5 Mg/3 Ml) Ud) 2.5 mg INH RQ4 PRN PRN Reason: Shortness of Breath Albuterol/Ipratropium (Duoneb 3 Mg/0.5 Mg (3 Ml) Ud) 3 ml INH RQID [facility] Last Admin: 09/11/17 07:57 Dose: 3 ml Docusate Sodium (Colace) 200 mg PO DAILY [facility] Last Admin: 09/10/17 09:17 Dose: Not Given Meropenem 1 gm/ Sodium (Chloride) 100 mls @ 100 mls/hr IVPB Q12H [facility] PRN Reason: Protocol Last Admin: 09/11/17 00:57 Dose: 100 mls/hr Latanoprost (Xalatan Opht) 1 drop OU DAILY [facility] Last Admin: 09/10/17 09:19 Dose: Not Given Losartan Potassium (Cozaar) 100 mg PO DAILY [facility] Last Admin: 09/10/17 09:18 Dose: Not Given Memantine (Namenda) 10 mg PO BID [facility] Last Admin: 09/10/17 17:49 Dose: Not Given Metoprolol Succinate (Toprol Xl) 50 mg PO DAILY [facility] Last Admin: 09/10/17 09:19 Dose: Not Given Montelukast Sodium (Singulair) 10 mg PO DAILY [facility] Last Admin: 09/10/17 09:19 Dose: Not Given Nitroglycerin (Nitrostat Sl Tab) 0.4 mg SL Q5M PRN PRN Reason: Pain, moderate (4-7) Last Admin: 09/03/17 16:09 Dose: 0.4 mg Nystatin (Nystop Topical Powder) 1 applic TOP TID [facility] Last Admin: 09/10/17 17:49 Dose: Not Given Nystatin (Nystatin Oral Susp) 5 ml PO QID [facility] Last Admin: 09/10/17 21:14 Dose: 5 ml Pantoprazole Sodium (Protonix Ec Tab) 40 mg PO DAILY [facility] Last Admin: 09/10/17 09:19 Dose: Not Given Paroxetine HCl (Paxil) 20 mg PO DAILY [facility] Last Admin: 09/10/17 09:18 Dose: Not Given Pravastatin Sodium (Pravachol) 20 mg PO HS [facility] Last Admin: 09/10/17 21:16 Dose: 20 mg - Labs Labs: 09/09/17 04:20 09/09/17 04:20 PT 12.6 Seconds (9.8-13.1) 08/27/17 10:30 INR 1.1 (0.9-1.2) 08/27/17 10:30 APTT 30.0 Seconds (25.6-37.1) 08/27/17 10:30 Assessment and Plan (1) Preop cardiovascular exam Status: Acute (2) Pleural effusion Status: Acute (3) Chronic asthma Status: Chronic (4) Hyperlipidemia Status: Chronic (5) Hypertension Status: Chronic Attending/Attestation - Attestation I have personally seen and examined this patient.: Yes I have fully participated in the care of the patient.: Yes I have reviewed all pertinent clinical information, including history, physical exam and plan: Yes Notes (Text): 09/11/17 08:03 INDICATIONS: Gabriella Torres is a pleasant 86-year-old female, who was admitted to [facility] with recurrent pleural effusion and was being plan to undergo VATS procedure and was evaluated with preoperative cardiovascular risk stratification with a stress test, which shows possible ischemia in the inferior sibley. Therefore, she was brought to the Billing And Quality Technician for preoperative risk stratification. PROCEDURE PERFORMED: Left heart catheterization with selective left and right coronary angiogram via right radial approach, 6-Portuguese right radial arterial access, wristband for hemostasis. TECHNIQUE OF PROCEDURE: After obtaining informed consent, the patient was brought to the cardiac catheterization suite in post-absorptive and non-sedated state. The patient was prepped and draped in the usual sterile fashion. A 2% lidocaine was used for infiltration of anesthesia. Using modified Seldinger technique, a 6-Portuguese sheath was introduced into the right radial artery. Subsequently, over a J-wire, JR-4 and JL-4 diagnostic catheters were used to engage the left and right coronary systems. Angiograms were obtained in different orthogonal views. LV gram was obtained in the STEWART view. HEMODYNAMICS FINDINGS: Left ventricular end-diastolic pressure was 38 mmHg. There was no gradient noted from the aortic valve. There was no AI and no NE. Left ventricular ejection fraction estimated to be 50% to 55%. CORONARY ANATOMY: The left main is a large-size vessel, bifurcates into left anterior descending and the left circumflex coronary artery. Left anterior descending artery is a large-size vessel, gives off medium-size diagonal branch and a few septal perforators, which has the mild nonobstructive disease. The circumflex runs in the AV groove, gives off 2 medium-size obtuse marginal branches. Right coronary artery ostial spasm noted of 50% with mild diffuse disease. IMPRESSION: Nonobstructive coronary artery disease as well as spasm of the right coronary artery. Mild nonobstructive disease in the left anterior descending. Normal ejection fraction with elevated filling pressures. RECOMMENDATIONS: Continue aggressive medical management, risk factor modification, titration of therapy for diastolic CHF. Renzo Fernandez MD As per ACC/AHA guidelines she can proceed with planned surgery / VATS with low risk for perioperative cardiac event will need low dose diuretic therapy and afterload reducers for diastolic CHF
[2017-09-11 09:18] LABS: BASO % 0.5 % (0.0-2.0); EOS # 0.2 K/uL (0.0-0.7); EOS % 2.2 % (0.0-4.0); HEMOGLOBIN 10.4 g/dL (12.0-16.0); LYMPH # 1.3 K/uL (1.0-4.3); LYMPH % 16.8 % (20.0-40.0); MEAN CELL VOLUME 78.6 fl (81.0-99.0); MEAN CORPUSCULAR HEMOGLOBIN 25.8 pg (27.0-31.0); MEAN CORPUSCULAR HGB CONC 32.9 g/dL (33.0-37.0); MEAN PLATELET VOLUME 8.4 fl (7.2-11.7); MONO # 0.4 K/uL (0.0-0.8); MONO % 5.2 % (0.0-10.0); NEUT # 5.7 K/uL (1.8-7.0); NEUT % 75.3 % (50.0-75.0); NRBC % 0.1 % (0.0-0.0); RBC 4.04 Mil/uL (3.80-5.20); RED CELL DISTRIBUTION WIDTH 15.1 % (11.5-14.5); WHITE BLOOD COUNT 7.6 K/uL (4.8-10.8)
--- NOTE | 2017-09-11 09:44 | CP.PCM.PN ---
Subjective - Date & Time of Evaluation Date of Evaluation: 09/11/17 Time of Evaluation: 07:15 - Subjective Subjective: CT surgery progress note for Dr. Morenita Smith, PGY-1 Pt S & E at bedside. Pt asleep but arousable to verbal stimuli. Denies problems breathing, SOB, chest pain, abdominal pain, N & V, F & C, other complaints. Pt w/cardiac cath on 09/11- RCA w/spasm, 50% w/mild diffuse disease; non obstructive CAD + spasm of RCA- low risk for VATS Objective - Vital Signs/Intake and Output Vital Signs (last 24 hours): Temp Pulse Resp BP Pulse Ox 98.1 F 68 20 137/70 100 09/11/17 08:07 09/11/17 08:07 09/11/17 08:07 09/11/17 08:07 09/11/17 08:07 - Medications Medications: Current Medications Acetaminophen (Tylenol 325mg Tab) 650 mg PO Q6 PRN PRN Reason: Pain, moderate (4-7) Last Admin: 09/01/17 21:39 Dose: 650 mg Acetylcysteine (Acetylcysteine 20%) 2 ml INH RBID [facility] Last Admin: 09/10/17 20:28 Dose: 2 ml Albuterol Sulfate (Albuterol 0.083% Inhal Carmen (2.5 Mg/3 Ml) Ud) 2.5 mg INH RQ4 PRN PRN Reason: Shortness of Breath Albuterol/Ipratropium (Duoneb 3 Mg/0.5 Mg (3 Ml) Ud) 3 ml INH RQID [facility] Last Admin: 09/11/17 07:57 Dose: 3 ml Docusate Sodium (Colace) 200 mg PO DAILY [facility]S [facility] Last Admin: 09/10/17 09:17 Dose: Not Given Furosemide (Lasix) 20 mg PO DAILY [facility]S [facility] 234 BEDS AT [facility] Meropenem 1 gm/ Sodium (Chloride) 100 mls @ 100 mls/hr IVPB Q12H [facility] PRN Reason: Protocol Last Admin: 09/11/17 00:57 Dose: 100 mls/hr Latanoprost (Xalatan Opht) 1 drop OU DAILY [facility] 234 B[facility]S AT [facility] Last Admin: 09/10/17 09:19 Dose: Not Given Losartan Potassium (Cozaar) 100 mg PO DAILY [facility] 234 B[facility]S AT [facility] Last Admin: 09/10/17 09:18 Dose: Not Given Memantine (Namenda) 10 mg PO BID [facility] 234 [facility]S AT [facility] Last Admin: 09/10/17 17:49 Dose: Not Given Metoprolol Succinate (Toprol Xl) 50 mg PO DAILY [facility] 234 B[facility]S AT [facility] Last Admin: 09/10/17 09:19 Dose: Not Given Montelukast Sodium (Singulair) 10 mg PO DAILY [facility] 234 B[facility]S AT [facility] Last Admin: 09/10/17 09:19 Dose: Not Given Nitroglycerin (Nitrostat Sl Tab) 0.4 mg SL Q5M PRN PRN Reason: Pain, moderate (4-7) Last Admin: 09/03/17 16:09 Dose: 0.4 mg Nystatin (Nystop Topical Powder) 1 applic TOP TID [facility] 234 B[facility]S [facility] Last Admin: 09/10/17 17:49 Dose: Not Given Nystatin (Nystatin Oral Susp) 5 ml PO QID [facility] 234 B[facility]S AT [facility] Last Admin: 09/10/17 21:14 Dose: 5 ml Pantoprazole Sodium (Protonix Ec Tab) 40 mg PO DAILY [facility] 234 B[facility]S [facility] Last Admin: 09/10/17 09:19 Dose: Not Given Paroxetine HCl (Paxil) 20 mg PO DAILY [facility] 234 BEDS AT [facility] Last Admin: 09/10/17 09:18 Dose: Not Given Pravastatin Sodium (Pravachol) 20 mg PO HS [facility] 234 B[facility]S AT [facility] Last Admin: 09/10/17 21:16 Dose: 20 mg - Labs Labs: 09/11/17 09:02 09/09/17 04:20 PT 12.6 Seconds (9.8-13.1) 08/27/17 10:30 INR 1.1 (0.9-1.2) 08/27/17 10:30 APTT 30.0 Seconds (25.6-37.1) 08/27/17 10:30 - Constitutional Appears: Non-toxic, No Acute Distress - Head Exam Head Exam: ATRAUMATIC, NORMAL INSPECTION, NORMOCEPHALIC - Eye Exam Eye Exam: EOMI, Normal appearance - ENT Exam ENT Exam: Mucous Membranes Moist, Normal Exam - Neck Exam Neck Exam: Full ROM, Normal Inspection - Respiratory Exam Respiratory Exam: NORMAL BREATHING PATTERN - Cardiovascular Exam Cardiovascular Exam: REGULAR RHYTHM, +S1, +S2 - GI/Abdominal Exam GI & Abdominal Exam: Soft, Normal Bowel Sounds. absent: Tenderness - Extremities Exam Extremities Exam: Normal Inspection. absent: Pedal Edema, Tenderness - Neurological Exam Neurological Exam: Alert, Awake. absent: Oriented x3 (demented) - Psychiatric Exam Psychiatric exam: Normal Affect, Normal Mood - Skin Skin Exam: Dry, Intact, Normal Color, Warm Assessment and Plan - Assessment and Plan (Free Text) Assessment: 86F with recurrent right pleural effusion s/p cardiac cath Plan: y Plan for VATS w/biopsy & pleurodesis on 09/12 Low risk for VATS as per cardiology NPO after MN Hold anti-coagulation Consent in chart Further mgmt as per primary team [facility] attending Sarah, PGY-1
[2017-09-11] MEDS: Nystatin 100,000 Units/ml Oral Susp 5 ml UD PO SCH ×4 (09:46→21:37)
[2017-09-11] MEDS: Pantoprazole 40 mg EC Tab PO SCH (09:46)
[2017-09-11 09:49] LABS: PROTHROMBIN TIME 13.1 Seconds (9.8-13.1)
[2017-09-11 09:50] LABS: INR 1.2 (0.9-1.2); PARTIAL THROMBOPLASTIN TIME 32.7 Seconds (25.6-37.1)
[2017-09-11] MEDS: Metoprolol Succinate 50 mg XL Tab PO SCH (09:50)
[2017-09-11] MEDS: Latanoprost 0.005% Opht SOUTION OU SCH (09:50)
[2017-09-11 09:53] LABS: ALBUMIN 3.2 g/dL (3.5-5.0); ALT/SGPT 38 U/L (9-52); AST/SGOT 27 U/L (14-36); BLOOD UREA NITROGEN 17 mg/dl (7-17); GFR AFRICAN-AMERICAN > 60; GFR NON-AFRICAN AMERICAN > 60
--- NOTE | 2017-09-11 13:30 | CP.PCM.PN ---
Subjective - Date & Time of Evaluation Date of Evaluation: 09/11/17 Time of Evaluation: 13:26 - Subjective Subjective: Preop note: 86 yo female with multiple comorbities who presented with loculated exudative right effusion of unknown etiology associated with sob. For VATS or open decortication, lung and pleural bx, and evacuation of effusion. D/W Drs. Nassar and Sarah on rounds. Consent obtained. T and C one unit. Objective - Vital Signs/Intake and Output Vital Signs (last 24 hours): Temp Pulse Resp BP Pulse Ox 96.9 F L 71 20 100/63 99 09/11/17 12:07 09/11/17 12:07 09/11/17 12:07 09/11/17 12:07 09/11/17 12:07 - Medications Medications: Current Medications Acetaminophen (Tylenol 325mg Tab) 650 mg PO Q6 PRN PRN Reason: Pain, moderate (4-7) Last Admin: 09/01/17 21:39 Dose: 650 mg Acetylcysteine (Acetylcysteine 20%) 2 ml INH RBID [facility] Last Admin: 09/10/17 20:28 Dose: 2 ml Albuterol Sulfate (Albuterol 0.083% Inhal Carmen (2.5 Mg/3 Ml) Ud) 2.5 mg INH RQ4 PRN PRN Reason: Shortness of Breath Albuterol/Ipratropium (Duoneb 3 Mg/0.5 Mg (3 Ml) Ud) 3 ml INH RQID [facility] Last Admin: 09/11/17 11:20 Dose: 3 ml Docusate Sodium (Colace) 200 mg PO DAILY [facility] Last Admin: 09/11/17 09:49 Dose: 200 mg Furosemide (Lasix) 20 mg PO DAILY [facility] Last Admin: 09/11/17 09:53 Dose: 20 mg Lactated Ringer's (Lactated Ringer's) 1,000 mls @ 100 mls/hr IV .Q10H [facility] Latanoprost (Xalatan Opht) 1 drop OU DAILY [facility] Last Admin: 09/11/17 09:50 Dose: 1 drop Losartan Potassium (Cozaar) 100 mg PO DAILY [facility] Last Admin: 09/11/17 09:47 Dose: 100 mg Memantine (Namenda) 10 mg PO BID [facility] Last Admin: 09/11/17 09:45 Dose: 10 mg Metoprolol Succinate (Toprol Xl) 50 mg PO DAILY [facility] Last Admin: 09/11/17 09:50 Dose: 50 mg Montelukast Sodium (Singulair) 10 mg PO DAILY [facility] Last Admin: 09/11/17 09:50 Dose: 10 mg Nitroglycerin (Nitrostat Sl Tab) 0.4 mg SL Q5M PRN PRN Reason: Pain, moderate (4-7) Last Admin: 09/03/17 16:09 Dose: 0.4 mg Nystatin (Nystop Topical Powder) 1 applic TOP TID [facility] Last Admin: 09/11/17 13:23 Dose: 1 applic Nystatin (Nystatin Oral Susp) 5 ml PO QID [facility] Last Admin: 09/11/17 13:23 Dose: 5 ml Pantoprazole Sodium (Protonix Ec Tab) 40 mg PO DAILY [facility] Last Admin: 09/11/17 09:46 Dose: 40 mg Paroxetine HCl (Paxil) 20 mg PO DAILY [facility] Last Admin: 09/11/17 09:49 Dose: 20 mg Pravastatin Sodium (Pravachol) 20 mg PO HS [facility] Last Admin: 09/10/17 21:16 Dose: 20 mg Spironolactone (Aldactone) 25 mg PO DAILY [facility] Last Admin: 09/11/17 12:30 Dose: 25 mg - Labs Labs: 09/11/17 09:02 09/11/17 09:02 PT 13.1 Seconds (9.8-13.1) 09/11/17 09:02 INR 1.2 (0.9-1.2) 09/11/17 09:02 APTT 32.7 Seconds (25.6-37.1) 09/11/17 09:02
[2017-09-11 15:40] LABS: ABG ALLEN TEST YES; ARTERIAL BLOOD GAS HCO3 36.4 mmol/L (21-28); ARTERIAL BLOOD GAS HEMOGLOBIN 10.8 g/dL (11.7-17.4); ARTERIAL BLOOD GAS O2 CONTENT 14.9 ML/dL (15-23); ARTERIAL BLOOD GAS O2 SAT 99.2 % (95-98); ARTERIAL BLOOD GAS PCO2 59 mm/Hg (35-45); ARTERIAL BLOOD GAS PH 7.45 (7.35-7.45); ARTERIAL BLOOD GAS PO2 117 mm/Hg (80-100); ARTERIAL BLOOD GAS TCO2 42.8 mmol/L (22-28)
--- NOTE | 2017-09-11 16:51 | CP.PCM.PCO ---
Physician Communication Note - Physician Communication Note Physician Communication Note: Pt not consented for anesthesia tomorrow, OR cancelled/postponed
[2017-09-11] MEDS: Acetylcysteine 20% Inhal Soln (4ml) INH SCH (19:27)
[2017-09-11] MEDS: Pravastatin Sodium 20 MG TAB PO SCH (21:37)
[2017-09-11] MEDS ORDERED: Lactated Ringer's 1,000 ML IV SCH (23:30)
[2017-09-12 06:17] LABS: HEMOGLOBIN 10.2 g/dL (12.0-16.0); MEAN CORPUSCULAR HEMOGLOBIN 25.6 pg (27.0-31.0); MEAN CORPUSCULAR HGB CONC 32.9 g/dL (33.0-37.0); RBC 3.99 Mil/uL (3.80-5.20); RED CELL DISTRIBUTION WIDTH 14.7 % (11.5-14.5)
[2017-09-12 06:48] LABS: BLOOD UREA NITROGEN 18 mg/dl (7-17); GFR AFRICAN-AMERICAN > 60; GFR NON-AFRICAN AMERICAN > 60; MAGNESIUM 1.9 MG/DL (1.6-2.3)
--- NOTE | 2017-09-12 07:32 | CP.PCM.PN ---
<Geena Pineda - Last Filed: 09/12/17 07:59> Subjective - Date & Time of Evaluation Date of Evaluation: 09/12/17 Time of Evaluation: 07:31 - Subjective Subjective: PGY2 progress note for cardiology, Dr. Fernandez Pt seen and examined at bedside. Sustained 9 beats of v tach overnight. No chest pain associated with the arrhythmia. Pt is resting comfortably. Denies having any CP, SOB, abd pain, N/V/D/C. 12 point ROS negative except for the above mentioned. Objective - Vital Signs/Intake and Output Vital Signs (last 24 hours): Temp Pulse Resp BP Pulse Ox 97.5 F L 67 18 120/69 96 09/12/17 05:27 09/12/17 05:27 09/12/17 05:27 09/12/17 05:27 09/12/17 05:27 - Medications Medications: Current Medications Acetaminophen (Tylenol 325mg Tab) 650 mg PO Q6 PRN PRN Reason: Pain, moderate (4-7) Last Admin: 09/01/17 21:39 Dose: 650 mg Acetylcysteine (Acetylcysteine 20%) 2 ml INH RBID [facility] Last Admin: 09/11/17 19:27 Dose: 2 ml Albuterol Sulfate (Albuterol 0.083% Inhal Carmen (2.5 Mg/3 Ml) Ud) 2.5 mg INH RQ4 PRN PRN Reason: Shortness of Breath Albuterol/Ipratropium (Duoneb 3 Mg/0.5 Mg (3 Ml) Ud) 3 ml INH RQID [facility] Last Admin: 09/11/17 19:27 Dose: 3 ml Docusate Sodium (Colace) 200 mg PO DAILY [facility] Last Admin: 09/11/17 09:49 Dose: 200 mg Furosemide (Lasix) 20 mg PO DAILY [facility] Last Admin: 09/11/17 09:53 Dose: 20 mg Lactated Ringer's (Lactated Ringer's) 1,000 mls @ 100 mls/hr IV .Q10H [facility] Last Admin: 09/12/17 01:11 Dose: Not Given Latanoprost (Xalatan Opht) 1 drop OU DAILY [facility] Last Admin: 09/11/17 09:50 Dose: 1 drop Losartan Potassium (Cozaar) 100 mg PO DAILY [facility] Last Admin: 09/11/17 09:47 Dose: 100 mg Memantine (Namenda) 10 mg PO BID [facility] Last Admin: 09/11/17 17:42 Dose: 10 mg Metoprolol Succinate (Toprol Xl) 50 mg PO DAILY [facility] Last Admin: 09/11/17 09:50 Dose: 50 mg Montelukast Sodium (Singulair) 10 mg PO DAILY [facility] Last Admin: 09/11/17 09:50 Dose: 10 mg Nitroglycerin (Nitrostat Sl Tab) 0.4 mg SL Q5M PRN PRN Reason: Pain, moderate (4-7) Last Admin: 09/03/17 16:09 Dose: 0.4 mg Nystatin (Nystop Topical Powder) 1 applic TOP TID [facility] Last Admin: 09/11/17 17:43 Dose: 1 applic Nystatin (Nystatin Oral Susp) 5 ml PO QID [facility] Last Admin: 09/11/17 21:37 Dose: 5 ml Pantoprazole Sodium (Protonix Ec Tab) 40 mg PO DAILY [facility] Last Admin: 09/11/17 09:46 Dose: 40 mg Paroxetine HCl (Paxil) 20 mg PO DAILY [facility] Last Admin: 09/11/17 09:49 Dose: 20 mg Pravastatin Sodium (Pravachol) 20 mg PO HS [facility] Last Admin: 09/11/17 21:37 Dose: 20 mg Spironolactone (Aldactone) 25 mg PO DAILY [facility] Last Admin: 09/11/17 12:30 Dose: 25 mg - Labs Labs: 09/12/17 05:02 09/12/17 05:02 PT 13.1 Seconds (9.8-13.1) 09/11/17 09:02 INR 1.2 (0.9-1.2) 09/11/17 09:02 APTT 32.7 Seconds (25.6-37.1) 09/11/17 09:02 - Constitutional Appears: Non-toxic, No Acute Distress - Head Exam Head Exam: ATRAUMATIC - ENT Exam ENT Exam: Mucous Membranes Moist - Respiratory Exam Respiratory Exam: Decreased Breath Sounds (B/L). absent: Accessory Muscle Use, Rales, Rhonchi, Wheezes, Respiratory Distress - Cardiovascular Exam Cardiovascular Exam: REGULAR RHYTHM, +S1, +S2. absent: Gallop, Rubs, Murmur - GI/Abdominal Exam GI & Abdominal Exam: Soft, Normal Bowel Sounds. absent: Distended, Firm, Guarding, Rigid, Tenderness, Organomegaly - Extremities Exam Extremities Exam: absent: Pedal Edema, Tenderness - Neurological Exam Neurological Exam: Alert, Awake, Oriented x3 - Psychiatric Exam Psychiatric exam: Normal Affect, Normal Mood - Skin Skin Exam: Dry, Intact, Normal Color, Warm Assessment and Plan - Assessment and Plan (Free Text) Assessment: 86 year old female with past medical history of HTN, HLD, and right pleural effusion is being seen of cardiac clearance for right VATS procedure. Cardiac cath procedure showed non-obstructive coronary disease as well as spasm of RCA. Mild non-obstructive LAD. Normal EF with elevated filling pressure. Recommend aggressive medical management. Pre-op medical clearance for VATS procedure Low risk for adverse cardiac event during non-cardiac VATS procedure per ACC/ AHA guidelines. Pleural effusion VATS currently cancelled. 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 tach Pt sustained 9 beats of V tach overnight. Currently on Toprol XL 50 mg PO qd Will check Mg and phos level Case discussed with attending, Dr. Fernandez. <Renzo Fernandez - Last Filed: 09/15/17 21:11> Objective - Vital Signs/Intake and Output Vital Signs (last 24 hours): Temp Pulse Resp BP Pulse Ox 98.3 F 74 20 97/61 L 98 09/15/17 20:17 09/15/17 20:17 09/15/17 20:17 09/15/17 20:17 09/15/17 20:17 Intake and Output: 09/15/17 09/16/17 18:59 06:59 Intake Total 800 Balance 800 - Medications Medications: Current Medications Acetaminophen (Tylenol 325mg Tab) 650 mg PO Q6 PRN PRN Reason: Pain, moderate (4-7) Last Admin: 09/01/17 21:39 Dose: 650 mg Acetylcysteine (Acetylcysteine 20%) 2 ml INH RBID [facility] Last Admin: 09/15/17 19:55 Dose: 2 ml Albuterol Sulfate (Albuterol 0.083% Inhal Carmen (2.5 Mg/3 Ml) Ud) 2.5 mg INH RQ4 PRN PRN Reason: Shortness of Breath Albuterol/Ipratropium (Duoneb 3 Mg/0.5 Mg (3 Ml) Ud) 3 ml INH RQID [facility] Last Admin: 09/15/17 19:55 Dose: 3 ml Docusate Sodium (Colace) 200 mg PO DAILY [facility] Last Admin: 09/15/17 11:23 Dose: 200 mg Enoxaparin Sodium (Lovenox) 40 mg SC DAILY [facility] PRN Reason: Protocol Last Admin: 09/15/17 11:24 Dose: 40 mg Furosemide (Lasix) 20 mg PO DAILY [facility] Last Admin: 09/15/17 11:12 Dose: 20 mg Latanoprost (Xalatan Opht) 1 drop OU DAILY [facility] Last Admin: 09/15/17 11:26 Dose: 1 drop Losartan Potassium (Cozaar) 100 mg PO DAILY [facility] Last Admin: 09/15/17 11:22 Dose: 100 mg Memantine (Namenda) 10 mg PO BID [facility] Last Admin: 09/15/17 16:58 Dose: 10 mg Metoprolol Succinate (Toprol Xl) 50 mg PO DAILY [facility] Last Admin: 09/15/17 11:22 Dose: 50 mg Montelukast Sodium (Singulair) 10 mg PO DAILY [facility] Last Admin: 09/15/17 11:12 Dose: 10 mg Nitroglycerin (Nitrostat Sl Tab) 0.4 mg SL Q5M PRN PRN Reason: Pain, moderate (4-7) Last Admin: 09/03/17 16:09 Dose: 0.4 mg Nystatin (Nystop Topical Powder) 1 applic TOP TID [facility] Last Admin: 09/15/17 16:58 Dose: 1 applic Nystatin (Nystatin Oral Susp) 5 ml PO QID [facility] Last Admin: 09/15/17 16:58 Dose: 5 ml Pantoprazole Sodium (Protonix Ec Tab) 40 mg PO DAILY [facility] Last Admin: 09/15/17 11:23 Dose: 40 mg Paroxetine HCl (Paxil) 20 mg PO DAILY [facility] Last Admin: 09/15/17 11:12 Dose: 20 mg Pravastatin Sodium (Pravachol) 20 mg PO HS [facility] Last Admin: 09/14/17 21:43 Dose: 20 mg Spironolactone (Aldactone) 25 mg PO DAILY [facility] Last Admin: 09/15/17 11:23 Dose: 25 mg - Labs Labs: 09/15/17 05:19 09/15/17 05:19 PT 12.9 Seconds (9.8-13.1) 09/12/17 05:02 INR 1.2 (0.9-1.2) 09/12/17 05:02 APTT 32.7 Seconds (25.6-37.1) 09/11/17 09:02 Assessment and Plan (1) Preop cardiovascular exam Status: Acute (2) Pleural effusion Status: Acute (3) Chronic asthma Status: Chronic (4) Hyperlipidemia Status: Chronic (5) Hypertension Status: Chronic Attending/Attestation - Attestation I have personally seen and examined this patient.: Yes I have fully participated in the care of the patient.: Yes I have reviewed all pertinent clinical information, including history, physical exam and plan: Yes
[2017-09-12 07:35] LABS: INR 1.2 (0.9-1.2); PROTHROMBIN TIME 12.9 Seconds (9.8-13.1)
--- NOTE | 2017-09-12 08:05 | CP.PCM.PN ---
Subjective - Date & Time of Evaluation Date of Evaluation: 09/12/17 Time of Evaluation: 08:04 - Subjective Subjective: CT surgery progress note for Dr. Morenita Smith, PGY-1 Pt S & E at bedside. Pt awake. No complaints. Denies problems breathing, SOB, chest pain, abdominal pain, N & V, F & C. POA not consenting to anesthesia, OR for today cancelled. Will consider re-scheduling procedure if POA consents to anesthesia. Objective - Vital Signs/Intake and Output Vital Signs (last 24 hours): Temp Pulse Resp BP Pulse Ox 97.5 F L 67 18 120/69 96 09/12/17 05:27 09/12/17 05:27 09/12/17 05:27 09/12/17 05:27 09/12/17 05:27 - Medications Medications: Current Medications Acetaminophen (Tylenol 325mg Tab) 650 mg PO Q6 PRN PRN Reason: Pain, moderate (4-7) Last Admin: 09/01/17 21:39 Dose: 650 mg Acetylcysteine (Acetylcysteine 20%) 2 ml INH RBID [facility] Last Admin: 09/11/17 19:27 Dose: 2 ml Albuterol Sulfate (Albuterol 0.083% Inhal Carmen (2.5 Mg/3 Ml) Ud) 2.5 mg INH RQ4 PRN PRN Reason: Shortness of Breath Albuterol/Ipratropium (Duoneb 3 Mg/0.5 Mg (3 Ml) Ud) 3 ml INH RQID [facility] Last Admin: 09/11/17 19:27 Dose: 3 ml Docusate Sodium (Colace) 200 mg PO DAILY [facility] Last Admin: 09/11/17 09:49 Dose: 200 mg Furosemide (Lasix) 20 mg PO DAILY [facility] Last Admin: 09/11/17 09:53 Dose: 20 mg Lactated Ringer's (Lactated Ringer's) 1,000 mls @ 100 mls/hr IV .Q10H [facility] Last Admin: 09/12/17 01:11 Dose: Not Given Latanoprost (Xalatan Opht) 1 drop OU DAILY [facility] Last Admin: 09/11/17 09:50 Dose: 1 drop Losartan Potassium (Cozaar) 100 mg PO DAILY [facility] Last Admin: 09/11/17 09:47 Dose: 100 mg Memantine (Namenda) 10 mg PO BID [facility] Last Admin: 09/11/17 17:42 Dose: 10 mg Metoprolol Succinate (Toprol Xl) 50 mg PO DAILY [facility] Last Admin: 09/11/17 09:50 Dose: 50 mg Montelukast Sodium (Singulair) 10 mg PO DAILY [facility] Last Admin: 09/11/17 09:50 Dose: 10 mg Nitroglycerin (Nitrostat Sl Tab) 0.4 mg SL Q5M PRN PRN Reason: Pain, moderate (4-7) Last Admin: 09/03/17 16:09 Dose: 0.4 mg Nystatin (Nystop Topical Powder) 1 applic TOP TID [facility] Last Admin: 09/11/17 17:43 Dose: 1 applic Nystatin (Nystatin Oral Susp) 5 ml PO QID [facility] Last Admin: 09/11/17 21:37 Dose: 5 ml Pantoprazole Sodium (Protonix Ec Tab) 40 mg PO DAILY [facility] Last Admin: 09/11/17 09:46 Dose: 40 mg Paroxetine HCl (Paxil) 20 mg PO DAILY [facility] Last Admin: 09/11/17 09:49 Dose: 20 mg Pravastatin Sodium (Pravachol) 20 mg PO HS [facility] Last Admin: 09/11/17 21:37 Dose: 20 mg Spironolactone (Aldactone) 25 mg PO DAILY [facility] Last Admin: 09/11/17 12:30 Dose: 25 mg - Labs Labs: 09/12/17 05:02 09/12/17 05:02 PT 12.9 Seconds (9.8-13.1) 09/12/17 05:02 INR 1.2 (0.9-1.2) 09/12/17 05:02 APTT 32.7 Seconds (25.6-37.1) 09/11/17 09:02 - Constitutional Appears: Non-toxic, No Acute Distress - Head Exam Head Exam: ATRAUMATIC, NORMAL INSPECTION, NORMOCEPHALIC - Eye Exam Eye Exam: EOMI, Normal appearance - ENT Exam ENT Exam: Mucous Membranes Moist, Normal Exam - Neck Exam Neck Exam: Full ROM, Normal Inspection - Respiratory Exam Respiratory Exam: NORMAL BREATHING PATTERN. absent: Chest Wall Tenderness, Respiratory Distress - Cardiovascular Exam Cardiovascular Exam: REGULAR RHYTHM, +S1, +S2 - GI/Abdominal Exam GI & Abdominal Exam: Soft. absent: Distended, Firm, Guarding, Rigid, Tenderness - Extremities Exam Extremities Exam: absent: Pedal Edema - Neurological Exam Neurological Exam: Alert, Awake, CN II-XII Intact. absent: Oriented x3 ( demented) - Psychiatric Exam Psychiatric exam: Normal Affect, Normal Mood - Skin Skin Exam: Dry, Intact, Normal Color, Warm Assessment and Plan - Assessment and Plan (Free Text) Assessment: 86F with recurrent right pleural effusion s/p cardiac cath Plan: Cont diet No CT surgery at this time Awaiting POA consent for anesthesia Low risk for VATS as per cardiology Further mgmt as per primary team BAS[facility] attending Sarah, PGY-1
[2017-09-12] MEDS: Albuterol-Ipratrop 3 mg / 0.5 (3 ml) UD INH SCH ×4 (08:10→19:38)
[2017-09-12] MEDS: Acetylcysteine 20% Inhal Soln (4ml) INH SCH ×2 (08:10→19:38)
--- NOTE | 2017-09-12 08:25 | CP.PCM.PN ---
Subjective - Date & Time of Evaluation Date of Evaluation: 09/12/17 Time of Evaluation: 07:25 - Subjective Subjective: Patient seen and examined bedside with attending Dr silva. Patient awake, pleasant and reports feeling well. Patient with dementia and does not know if family memebers are coming today.Surgery cancelled due to no anesthesia consent done. Surgery will be rescheduled. no overnight events. Objective - Vital Signs/Intake and Output Vital Signs (last 24 hours): Temp Pulse Resp BP Pulse Ox 97.5 F L 67 18 120/69 96 09/12/17 05:27 09/12/17 05:27 09/12/17 05:27 09/12/17 05:27 09/12/17 05:27 - Medications Medications: Current Medications Acetaminophen (Tylenol 325mg Tab) 650 mg PO Q6 PRN PRN Reason: Pain, moderate (4-7) Last Admin: 09/01/17 21:39 Dose: 650 mg Acetylcysteine (Acetylcysteine 20%) 2 ml INH RBID [facility] Last Admin: 09/12/17 08:10 Dose: 2 ml Albuterol Sulfate (Albuterol 0.083% Inhal Carmen (2.5 Mg/3 Ml) Ud) 2.5 mg INH RQ4 PRN PRN Reason: Shortness of Breath Albuterol/Ipratropium (Duoneb 3 Mg/0.5 Mg (3 Ml) Ud) 3 ml INH RQID [facility] Last Admin: 09/12/17 08:10 Dose: 3 ml Docusate Sodium (Colace) 200 mg PO DAILY [facility] Last Admin: 09/11/17 09:49 Dose: 200 mg Furosemide (Lasix) 20 mg PO DAILY [facility] Last Admin: 09/11/17 09:53 Dose: 20 mg Lactated Ringer's (Lactated Ringer's) 1,000 mls @ 100 mls/hr IV .Q10H [facility] Last Admin: 09/12/17 01:11 Dose: Not Given Latanoprost (Xalatan Opht) 1 drop OU DAILY [facility] Last Admin: 09/11/17 09:50 Dose: 1 drop Losartan Potassium (Cozaar) 100 mg PO DAILY [facility] Last Admin: 09/11/17 09:47 Dose: 100 mg Memantine (Namenda) 10 mg PO BID [facility] Last Admin: 09/11/17 17:42 Dose: 10 mg Metoprolol Succinate (Toprol Xl) 50 mg PO DAILY [facility] Last Admin: 09/11/17 09:50 Dose: 50 mg Montelukast Sodium (Singulair) 10 mg PO DAILY [facility] Last Admin: 09/11/17 09:50 Dose: 10 mg Nitroglycerin (Nitrostat Sl Tab) 0.4 mg SL Q5M PRN PRN Reason: Pain, moderate (4-7) Last Admin: 09/03/17 16:09 Dose: 0.4 mg Nystatin (Nystop Topical Powder) 1 applic TOP TID [facility] Last Admin: 09/11/17 17:43 Dose: 1 applic Nystatin (Nystatin Oral Susp) 5 ml PO QID [facility] Last Admin: 09/11/17 21:37 Dose: 5 ml Pantoprazole Sodium (Protonix Ec Tab) 40 mg PO DAILY [facility] Last Admin: 09/11/17 09:46 Dose: 40 mg Paroxetine HCl (Paxil) 20 mg PO DAILY [facility] Last Admin: 09/11/17 09:49 Dose: 20 mg Pravastatin Sodium (Pravachol) 20 mg PO HS [facility] Last Admin: 09/11/17 21:37 Dose: 20 mg Spironolactone (Aldactone) 25 mg PO DAILY [facility] Last Admin: 09/11/17 12:30 Dose: 25 mg - Labs Labs: 09/12/17 05:02 09/12/17 05:02 PT 12.9 Seconds (9.8-13.1) 09/12/17 05:02 INR 1.2 (0.9-1.2) 09/12/17 05:02 APTT 32.7 Seconds (25.6-37.1) 09/11/17 09:02 - Constitutional Appears: Well, No Acute Distress - Head Exam Head Exam: ATRAUMATIC, NORMOCEPHALIC - Eye Exam Eye Exam: Normal appearance - ENT Exam ENT Exam: Mucous Membranes Moist - Respiratory Exam Respiratory Exam: Decreased Breath Sounds, Rales. absent: Rhonchi Additional comments: right lung base - Cardiovascular Exam Cardiovascular Exam: REGULAR RHYTHM, +S1, +S2 - GI/Abdominal Exam GI & Abdominal Exam: Soft, Normal Bowel Sounds. absent: Tenderness - Extremities Exam Extremities Exam: Normal Inspection. absent: Pedal Edema - Neurological Exam Neurological Exam: Alert, Awake - Psychiatric Exam Psychiatric exam: Normal Mood - Skin Skin Exam: Intact Assessment and Plan - Assessment and Plan (Free Text) Plan: Assessment/Plan (1) Pleural effusion -Right side recurrent -Machinist Apprentice consult appreciated -Cardiothoracic consult appreciated pt will need VATS with lung biopsy and pleurodesis.Surgery cancelled. will be reschedulled due to anesthesia consenting missing -Myocardial perfusion scan: potentially ischemic myocardium involving inferior wall which represent right coronary artery territory. -Coronary catherization: Nonobstructive coronary artery disease as well as spasm of the right coronary artery. Mild nonobstructive disease in the left anterior descending. Normal ejection fraction with elevated filling pressures. -Canteen Attendant consult appreciated:low risk for perioperative cardiac event. pt will need low dose diuretic therapy and afterload reducers for diastolic CHF - on telemetry, no arrhythmia overnight or today (2) Chronic asthma Status: Chronic 3) HTN -chronic controlled (4) Dementia Status: Chronic (5) DVT prophylaxis -Lovenox 40 mg sc
[2017-09-12] MEDS: Nystatin 100,000 Units/ml Oral Susp 5 ml UD PO SCH ×4 (09:01→21:24)
[2017-09-12] MEDS: Pantoprazole 40 mg EC Tab PO SCH (09:02)
[2017-09-12] MEDS: Metoprolol Succinate 50 mg XL Tab PO SCH (09:02)
[2017-09-12] MEDS: Latanoprost 0.005% Opht SOUTION OU SCH (09:03)
--- NOTE | 2017-09-12 09:04 | CP.PCM.PN ---
Subjective - Date & Time of Evaluation Date of Evaluation: 09/12/17 Time of Evaluation: 08:58 - Subjective Subjective: Today's surgical procedure has been canceled. Patient's cardiac evaluation is noted. Vital signs have been stable. Labs noted with chronic CO2 retention and metabolic compensation. Patient appears comfortable at rest, lying flat in the bed. No cyanosis or dependant edema. Neck is supple and trachea midline. No dullness over the anterior chest wall. Breath sounds are mildly decreased anteriorly in both lungs. Breath sounds are very much decreased posteriorly on the right. Scattered sonorous rhonchi in lower lobes posteriorly. No audible wheezes or bronchial breath sounds. Scattered medium rales (few) bilaterally. Will have a followup PCXR this morning. Check random urine electrolytes. Objective - Vital Signs/Intake and Output Vital Signs (last 24 hours): Temp Pulse Resp BP Pulse Ox 98.2 F 69 20 146/72 95 09/12/17 08:37 09/12/17 08:37 09/12/17 08:37 09/12/17 08:37 09/12/17 08:37 - Medications Medications: Current Medications Acetaminophen (Tylenol 325mg Tab) 650 mg PO Q6 PRN PRN Reason: Pain, moderate (4-7) Last Admin: 09/01/17 21:39 Dose: 650 mg Acetylcysteine (Acetylcysteine 20%) 2 ml INH RBID [facility] Last Admin: 09/12/17 08:10 Dose: 2 ml Albuterol Sulfate (Albuterol 0.083% Inhal Carmen (2.5 Mg/3 Ml) Ud) 2.5 mg INH RQ4 PRN PRN Reason: Shortness of Breath Albuterol/Ipratropium (Duoneb 3 Mg/0.5 Mg (3 Ml) Ud) 3 ml INH RQID [facility] Last Admin: 09/12/17 08:10 Dose: 3 ml Docusate Sodium (Colace) 200 mg PO DAILY [facility] Last Admin: 09/11/17 09:49 Dose: 200 mg Furosemide (Lasix) 20 mg PO DAILY [facility] Last Admin: 09/11/17 09:53 Dose: 20 mg Latanoprost (Xalatan Opht) 1 drop OU DAILY [facility] Last Admin: 09/11/17 09:50 Dose: 1 drop Losartan Potassium (Cozaar) 100 mg PO DAILY [facility] Last Admin: 09/11/17 09:47 Dose: 100 mg Memantine (Namenda) 10 mg PO BID [facility] Last Admin: 09/11/17 17:42 Dose: 10 mg Metoprolol Succinate (Toprol Xl) 50 mg PO DAILY [facility] Last Admin: 09/11/17 09:50 Dose: 50 mg Montelukast Sodium (Singulair) 10 mg PO DAILY [facility] Last Admin: 09/11/17 09:50 Dose: 10 mg Nitroglycerin (Nitrostat Sl Tab) 0.4 mg SL Q5M PRN PRN Reason: Pain, moderate (4-7) Last Admin: 09/03/17 16:09 Dose: 0.4 mg Nystatin (Nystop Topical Powder) 1 applic TOP TID [facility] Last Admin: 09/11/17 17:43 Dose: 1 applic Nystatin (Nystatin Oral Susp) 5 ml PO QID [facility] Last Admin: 09/11/17 21:37 Dose: 5 ml Pantoprazole Sodium (Protonix Ec Tab) 40 mg PO DAILY [facility] Last Admin: 09/11/17 09:46 Dose: 40 mg Paroxetine HCl (Paxil) 20 mg PO DAILY [facility] Last Admin: 09/11/17 09:49 Dose: 20 mg Pravastatin Sodium (Pravachol) 20 mg PO HS [facility] Last Admin: 09/11/17 21:37 Dose: 20 mg Spironolactone (Aldactone) 25 mg PO DAILY [facility] Last Admin: 09/11/17 12:30 Dose: 25 mg - Labs Labs: 09/12/17 05:02 09/12/17 05:02 PT 12.9 Seconds (9.8-13.1) 09/12/17 05:02 INR 1.2 (0.9-1.2) 09/12/17 05:02 APTT 32.7 Seconds (25.6-37.1) 09/11/17 09:02 Assessment and Plan (1) Pleural effusion Status: Acute (2) Chronic asthma Status: Chronic (3) Dementia Status: Chronic (4) Myocardial ischemia Status: Acute
--- NOTE | 2017-09-12 09:23 | PQF GENQUE ---
This form is a permanent part of the medical record 09/12/17 Dr. Fernandez, Please specify the acuity of diastolic heart failure in your progress notes. Acute Chronic Acute on chronic Other (please specify) Clinically unable to determine Unknown Admitted with chest pain and SOB. Noted to have pleural effusion and workup in progress as to the etiology. Cardiac clearance needed prior to surgery and cardiac catheterization performed with the following documentation: Nonobstructive CAD as well as spasm of the R coronary artery. Mild nonobstructive disease in the LAD. Normal EF with elevated filling pressures ,titration of therapy for diastolic CHF. Patient started on Lasix po. ProBNP 08/21/17: 1940 08/25/17:1230 09/11/17: 696 Clarification of your documentation is requested to better reflect the severity of illness and intensity of treatment of your patient. Indicators present [] Specify: [] [] Specify: [] [] Specify: [] [] Specify: [] Location in the medical record that reflects the above clinical findings: [] Treatment Provided: [] PHYSICIAN'S RESPONSE Based on your medical judgment of the clinical indicators outlined above please clarify the following: [] Practitioner response [] If unable to determine, please check the box, sign and date. Present On Admission (POA) Indicator: [] Present at the time of admission [] Not present at the time of admission [] Clinically Undetermined In responding to this query, please exercise your independent professional judgment. The fact that a question is asked does not imply that any particular answer is desired or expected. Thank you for your clarification on this documentation. If you have any questions please call:extension [phone] * Thank you, Renetta Casey RN CDMP MTDD
--- NOTE | 2017-09-12 11:23 | RAD ---
HISTORY: pleural effusion COMPARISON: Comparison chest 09/02/2017. Comparison also made with CT scan chest 08/22/2017. FINDINGS: LUNGS: Moderate size right-sided effusion and suspected right basilar atelectasis. Tiny left-sided effusion and minor left basilar atelectasis. PLEURA: No significant pleural effusion identified, no pneumothorax apparent. CARDIOVASCULAR: Cardiomegaly. OSSEOUS STRUCTURES: Mild multilevel degenerative spondylosis of the thoracic spine VISUALIZED UPPER ABDOMEN: Normal. OTHER FINDINGS: None. IMPRESSION: Moderate size right-sided effusion and suspected right basilar atelectasis. Tiny left-sided effusion and minor left basilar atelectasis.
[2017-09-12] MEDS: Pravastatin Sodium 20 MG TAB PO SCH (21:24)
[2017-09-13] MEDS: Albuterol-Ipratrop 3 mg / 0.5 (3 ml) UD INH SCH ×4 (07:19→19:25)
[2017-09-13] MEDS: Acetylcysteine 20% Inhal Soln (4ml) INH SCH (07:19)
--- NOTE | 2017-09-13 07:43 | CP.PCM.PN ---
Subjective - Date & Time of Evaluation Date of Evaluation: 09/13/17 Time of Evaluation: 07:30 - Subjective Subjective: CT surgery progress note for Dr. Morenita Smith, PGY-1 Pt S & E at bedside. Pt awake. No complaints. Denies problems breathing, SOB, chest pain, abdominal pain, N & V, F & C, other complaints. Objective - Vital Signs/Intake and Output Vital Signs (last 24 hours): Temp Pulse Resp BP Pulse Ox 98.5 F 64 20 134/74 92 L 09/13/17 05:00 09/13/17 05:00 09/13/17 05:00 09/13/17 05:00 09/13/17 05:00 Intake and Output: 09/13/17 09/13/17 06:59 18:59 Intake Total 800 Balance 800 - Medications Medications: Current Medications Acetaminophen (Tylenol 325mg Tab) 650 mg PO Q6 PRN PRN Reason: Pain, moderate (4-7) Last Admin: 09/01/17 21:39 Dose: 650 mg Acetylcysteine (Acetylcysteine 20%) 2 ml INH RBID [facility] Last Admin: 09/13/17 07:19 Dose: 2 ml Albuterol Sulfate (Albuterol 0.083% Inhal Carmen (2.5 Mg/3 Ml) Ud) 2.5 mg INH RQ4 PRN PRN Reason: Shortness of Breath Albuterol/Ipratropium (Duoneb 3 Mg/0.5 Mg (3 Ml) Ud) 3 ml INH RQID [facility] Last Admin: 09/13/17 07:19 Dose: 3 ml Docusate Sodium (Colace) 200 mg PO DAILY [facility] Last Admin: 09/12/17 09:02 Dose: 200 mg Enoxaparin Sodium (Lovenox) 40 mg SC DAILY [facility] PRN Reason: Protocol Furosemide (Lasix) 20 mg PO DAILY [facility] Last Admin: 09/12/17 09:03 Dose: 20 mg Latanoprost (Xalatan Opht) 1 drop OU DAILY [facility] Last Admin: 09/12/17 09:03 Dose: 1 drop Losartan Potassium (Cozaar) 100 mg PO DAILY [facility] Last Admin: 09/12/17 09:04 Dose: 100 mg Memantine (Namenda) 10 mg PO BID [facility] Last Admin: 12/29/17 16:29 Dose: 10 mg Metoprolol Succinate (Toprol Xl) 50 mg PO DAILY [facility] Last Admin: 09/12/17 09:02 Dose: 50 mg Montelukast Sodium (Singulair) 10 mg PO DAILY [facility] Last Admin: 09/12/17 09:02 Dose: 10 mg Nitroglycerin (Nitrostat Sl Tab) 0.4 mg SL Q5M PRN PRN Reason: Pain, moderate (4-7) Last Admin: 09/03/17 16:09 Dose: 0.4 mg Nystatin (Nystop Topical Powder) 1 applic TOP TID [facility] Last Admin: 09/12/17 16:29 Dose: 1 applic Nystatin (Nystatin Oral Susp) 5 ml PO QID [facility] Last Admin: 09/12/17 21:24 Dose: 5 ml Pantoprazole Sodium (Protonix Ec Tab) 40 mg PO DAILY [facility] Last Admin: 09/12/17 09:02 Dose: 40 mg Paroxetine HCl (Paxil) 20 mg PO DAILY [facility] Last Admin: 09/12/17 09:02 Dose: 20 mg Pravastatin Sodium (Pravachol) 20 mg PO HS [facility] Last Admin: 09/12/17 21:24 Dose: 20 mg Spironolactone (Aldactone) 25 mg PO DAILY [facility] Last Admin: 09/12/17 09:01 Dose: 25 mg - Labs Labs: 09/12/17 05:02 09/12/17 05:02 PT 12.9 Seconds (9.8-13.1) 09/12/17 05:02 INR 1.2 (0.9-1.2) 09/12/17 05:02 APTT 32.7 Seconds (25.6-37.1) 09/11/17 09:02 - Constitutional Appears: Non-toxic, No Acute Distress - Head Exam Head Exam: ATRAUMATIC, NORMAL INSPECTION, NORMOCEPHALIC - Eye Exam Eye Exam: EOMI, Normal appearance - ENT Exam ENT Exam: Mucous Membranes Moist, Normal Exam - Neck Exam Neck Exam: Full ROM, Normal Inspection - Respiratory Exam Respiratory Exam: Clear to Ausculation Bilateral, NORMAL BREATHING PATTERN. absent: Rales, Rhonchi, Wheezes, Respiratory Distress, Stridor - Cardiovascular Exam Cardiovascular Exam: REGULAR RHYTHM, +S1, +S2 - GI/Abdominal Exam GI & Abdominal Exam: Soft, Normal Bowel Sounds. absent: Tenderness - Extremities Exam Extremities Exam: Normal Inspection - Neurological Exam Neurological Exam: Alert, Awake, CN II-XII Intact. absent: Oriented x3 ( demented) - Psychiatric Exam Psychiatric exam: Normal Affect, Normal Mood - Skin Skin Exam: Dry, Intact, Normal Color, Warm Assessment and Plan - Assessment and Plan (Free Text) Assessment: 86F with recurrent right pleural effusion s/p cardiac cath Plan: Cont diet Cont pulmonary care Awaiting POA consent for anesthesia Low risk for VATS as per cardiology Further mgmt as per primary team BASIA attending Sarah, PGY-1
--- NOTE | 2017-09-13 08:42 | PN ---
DATE: 09/13/2017 SUBJECTIVE: The patient is seen and examined. Interim events noted. Consults noted and appreciated. Surgical followup and intervention noted and appreciated. The surgery was canceled. The patient feels okay. Denies any chest pain or shortness of breath. PHYSICAL EXAMINATION: GENERAL: The patient is in no acute distress. VITAL SIGNS: Stable. HEART: S1 and S2, normal and regular. LUNGS: Good bilateral air exchange. ABDOMEN: Soft, nontender. EXTREMITIES: No edema. No calf swelling. No tenderness. No acute ischemia. CENTRAL NERVOUS SYSTEM: Essentially unchanged. DIAGNOSTIC DATA: Available diagnostic data reviewed. Telemetry monitoring does not reveal significant arrhythmias. ASSESSMENT AND PLAN: Overall, the patient's general medical condition is stable. Plan as ordered. Jose Short MD
[2017-09-13] MEDS: Enoxaparin 40 mg Syringe SC SCH (09:09)
[2017-09-13] MEDS: Nystatin 100,000 Units/ml Oral Susp 5 ml UD PO SCH ×4 (09:10→21:07)
[2017-09-13] MEDS: Pantoprazole 40 mg EC Tab PO SCH (09:10)
[2017-09-13] MEDS: Latanoprost 0.005% Opht SOUTION OU SCH (09:11)
[2017-09-13] MEDS: Metoprolol Succinate 50 mg XL Tab PO SCH (09:19)
[2017-09-13] MEDS: Pravastatin Sodium 20 MG TAB PO SCH (21:07)
[2017-09-14] MEDS: Albuterol-Ipratrop 3 mg / 0.5 (3 ml) UD INH SCH ×4 (07:58→20:07)
[2017-09-14] MEDS: Acetylcysteine 20% Inhal Soln (4ml) INH SCH ×2 (07:59→20:07)
[2017-09-14 08:04] LABS: HEMOGLOBIN 10.5 g/dL (12.0-16.0); MEAN CELL VOLUME 77.5 fl (81.0-99.0); MEAN CORPUSCULAR HGB CONC 33.6 g/dL (33.0-37.0); RBC 4.05 Mil/uL (3.80-5.20); RED CELL DISTRIBUTION WIDTH 14.8 % (11.5-14.5); WHITE BLOOD COUNT 6.4 K/uL (4.8-10.8)
[2017-09-14 08:49] LABS: ALBUMIN 3.3 g/dL (3.5-5.0); ALT/SGPT 32 U/L (9-52); AST/SGOT 29 U/L (14-36); BLOOD UREA NITROGEN 17 mg/dl (7-17); CALCIUM 9.1 mg/dL (8.4-10.2); GFR AFRICAN-AMERICAN > 60; GFR NON-AFRICAN AMERICAN > 60
--- NOTE | 2017-09-14 08:54 | CP.PCM.PN ---
Subjective - Date & Time of Evaluation Date of Evaluation: 09/14/17 Time of Evaluation: 08:52 - Subjective Subjective: Cardiothoracic Surgery Progress Note for Dr. Clinton This patient was seen and examined this AM at bedside. No acute events reported , she is laying comfortable in bed, she denies CP or SOB. Objective - Vital Signs/Intake and Output Vital Signs (last 24 hours): Temp Pulse Resp BP Pulse Ox 98.4 F 59 L 20 139/67 100 09/14/17 08:00 09/14/17 08:00 09/14/17 08:00 09/14/17 08:00 09/14/17 08:00 - Medications Medications: Current Medications Acetaminophen (Tylenol 325mg Tab) 650 mg PO Q6 PRN PRN Reason: Pain, moderate (4-7) Last Admin: 09/01/17 21:39 Dose: 650 mg Acetylcysteine (Acetylcysteine 20%) 2 ml INH RBID [facility] Last Admin: 09/14/17 07:59 Dose: 2 ml Albuterol Sulfate (Albuterol 0.083% Inhal Carmen (2.5 Mg/3 Ml) Ud) 2.5 mg INH RQ4 PRN PRN Reason: Shortness of Breath Albuterol/Ipratropium (Duoneb 3 Mg/0.5 Mg (3 Ml) Ud) 3 ml INH RQID [facility] Last Admin: 09/14/17 07:58 Dose: 3 ml Docusate Sodium (Colace) 200 mg PO DAILY [facility] Last Admin: 09/13/17 09:10 Dose: 200 mg Enoxaparin Sodium (Lovenox) 40 mg SC DAILY [facility] PRN Reason: Protocol Last Admin: 09/13/17 09:09 Dose: 40 mg Furosemide (Lasix) 20 mg PO DAILY [facility] Last Admin: 09/13/17 09:19 Dose: 20 mg Latanoprost (Xalatan Opht) 1 drop OU DAILY [facility] Last Admin: 09/13/17 09:11 Dose: 1 drop Losartan Potassium (Cozaar) 100 mg PO DAILY [facility] Last Admin: 09/13/17 09:20 Dose: 100 mg Memantine (Namenda) 10 mg PO BID [facility] Last Admin: 09/13/17 17:02 Dose: 10 mg Metoprolol Succinate (Toprol Xl) 50 mg PO DAILY [facility] Last Admin: 09/13/17 09:19 Dose: 50 mg Montelukast Sodium (Singulair) 10 mg PO DAILY [facility] Last Admin: 09/13/17 09:11 Dose: 10 mg Nitroglycerin (Nitrostat Sl Tab) 0.4 mg SL Q5M PRN PRN Reason: Pain, moderate (4-7) Last Admin: 09/03/17 16:09 Dose: 0.4 mg Nystatin (Nystop Topical Powder) 1 applic TOP TID [facility] Last Admin: 09/13/17 17:01 Dose: 1 applic Nystatin (Nystatin Oral Susp) 5 ml PO QID [facility] Last Admin: 09/13/17 21:07 Dose: 5 ml Pantoprazole Sodium (Protonix Ec Tab) 40 mg PO DAILY [facility] Last Admin: 09/13/17 09:10 Dose: 40 mg Paroxetine HCl (Paxil) 20 mg PO DAILY [facility] Last Admin: 09/13/17 09:10 Dose: 20 mg Pravastatin Sodium (Pravachol) 20 mg PO HS [facility] Last Admin: 09/13/17 21:07 Dose: 20 mg Spironolactone (Aldactone) 25 mg PO DAILY [facility] Last Admin: 09/13/17 09:10 Dose: 25 mg - Labs Labs: 09/14/17 06:30 09/14/17 06:30 PT 12.9 Seconds (9.8-13.1) 09/12/17 05:02 INR 1.2 (0.9-1.2) 09/12/17 05:02 APTT 32.7 Seconds (25.6-37.1) 09/11/17 09:02 - Constitutional Appears: Non-toxic, No Acute Distress - Head Exam Head Exam: ATRAUMATIC, NORMAL INSPECTION - Respiratory Exam Respiratory Exam: NORMAL BREATHING PATTERN. absent: Respiratory Distress - Cardiovascular Exam Cardiovascular Exam: +S1, +S2. absent: Tachycardia - Neurological Exam Neurological Exam: Alert, Awake. absent: Oriented x3 (dementia) - Psychiatric Exam Psychiatric exam: Normal Affect, Normal Mood - Skin Skin Exam: Dry, Warm Assessment and Plan - Assessment and Plan (Free Text) Assessment: This is an 86F with recurrent right pleural effusion s/p cardiac cath Plan: Cont diet Cont pulmonary care Awaiting POA consent for anesthesia Low risk for VATS as per cardiology Further mgmt as per primary team Discuss with Dr. Mary Beth Terry PGY2
[2017-09-14] MEDS: Pantoprazole 40 mg EC Tab PO SCH (09:05)
[2017-09-14] MEDS: Nystatin 100,000 Units/ml Oral Susp 5 ml UD PO SCH ×4 (09:05→21:44)
[2017-09-14] MEDS: Metoprolol Succinate 50 mg XL Tab PO SCH (09:06)
[2017-09-14] MEDS: Latanoprost 0.005% Opht SOUTION OU SCH (09:06)
[2017-09-14] MEDS: Enoxaparin 40 mg Syringe SC SCH (09:07)
--- NOTE | 2017-09-14 09:18 | PN ---
DATE: 09/14/2017 SUBJECTIVE: The patient is seen and examined. Interim events noted. The patient remains in Progressive Care Unit on telemetry monitoring. Feels okay. Denies any specific complaint of chest pain or shortness of breath. PHYSICAL EXAMINATION: GENERAL: The patient is in no acute distress. VITAL SIGNS: Stable. HEART: S1 and S2, normal and regular. LUNGS: Good bilateral air exchange. ABDOMEN: Soft, nontender. EXTREMITIES: No edema. No calf swelling. No tenderness. No acute ischemia. CENTRAL NERVOUS SYSTEM: Essentially unchanged. DIAGNOSTIC DATA: Available diagnostic data reviewed. ASSESSMENT AND PLAN: Overall, the patient's general medical condition is stable. Telemetry monitoring does not reveal significant arrhythmias. Plan as ordered. Jose Short MD
[2017-09-14] MEDS: Pravastatin Sodium 20 MG TAB PO SCH (21:43)
[2017-09-15 05:47] LABS: HEMOGLOBIN 10.4 g/dL (12.0-16.0); MEAN CELL VOLUME 76.9 fl (81.0-99.0); MEAN CORPUSCULAR HEMOGLOBIN 25.8 pg (27.0-31.0); MEAN CORPUSCULAR HGB CONC 33.5 g/dL (33.0-37.0); RBC 4.02 Mil/uL (3.80-5.20); RED CELL DISTRIBUTION WIDTH 15.2 % (11.5-14.5); WHITE BLOOD COUNT 7.6 K/uL (4.8-10.8)
[2017-09-15 06:20] LABS: ALBUMIN 3.2 g/dL (3.5-5.0); ALT/SGPT 31 U/L (9-52); AST/SGOT 32 U/L (14-36); BLOOD UREA NITROGEN 30 mg/dl (7-17); CALCIUM 9.1 mg/dL (8.4-10.2); GFR AFRICAN-AMERICAN > 60; GFR NON-AFRICAN AMERICAN 53
[2017-09-15] MEDS: Albuterol-Ipratrop 3 mg / 0.5 (3 ml) UD INH SCH ×4 (07:37→19:55)
[2017-09-15] MEDS: Acetylcysteine 20% Inhal Soln (4ml) INH SCH ×2 (07:37→19:55)
--- NOTE | 2017-09-15 07:37 | CP.PCM.PN ---
Subjective - Date & Time of Evaluation Date of Evaluation: 09/15/17 Time of Evaluation: 06:45 - Subjective Subjective: CT surgery progress note for Dr. Morenita Smith, PGY-1 Pt S & E at bedside. Pt awake, comfortable in bed. Denies any complaints, CP, SOB, problems breathing, N & V, F & C, other complaints. No acute events per nursing. Objective - Vital Signs/Intake and Output Vital Signs (last 24 hours): Temp Pulse Resp BP Pulse Ox 98.6 F 70 18 118/55 L 99 09/15/17 05:00 09/15/17 05:00 09/15/17 05:00 09/15/17 05:00 09/15/17 05:00 Intake and Output: 09/15/17 09/15/17 06:59 18:59 Intake Total 150 Balance 150 - Medications Medications: Current Medications Acetaminophen (Tylenol 325mg Tab) 650 mg PO Q6 PRN PRN Reason: Pain, moderate (4-7) Last Admin: 09/01/17 21:39 Dose: 650 mg Acetylcysteine (Acetylcysteine 20%) 2 ml INH RBID [facility] Last Admin: 09/14/17 20:07 Dose: 2 ml Albuterol Sulfate (Albuterol 0.083% Inhal Carmen (2.5 Mg/3 Ml) Ud) 2.5 mg INH RQ4 PRN PRN Reason: Shortness of Breath Albuterol/Ipratropium (Duoneb 3 Mg/0.5 Mg (3 Ml) Ud) 3 ml INH RQID [facility] Last Admin: 09/14/17 20:07 Dose: 3 ml Docusate Sodium (Colace) 200 mg PO DAILY [facility]PL[facility] BY [facility] Last Admin: 09/14/17 09:05 Dose: 200 mg Enoxaparin Sodium (Lovenox) 40 mg SC DAILY [facility] PRN Reason: Protocol Last Admin: 09/14/17 09:07 Dose: 40 mg Furosemide (Lasix) 20 mg PO DAILY [facility] Last Admin: 09/14/17 09:13 Dose: 20 mg Latanoprost (Xalatan Opht) 1 drop OU DAILY [facility] Last Admin: 09/14/17 09:06 Dose: 1 drop Losartan Potassium (Cozaar) 100 mg PO DAILY [facility] Last Admin: 09/14/17 09:07 Dose: 100 mg Memantine (Namenda) 10 mg PO BID REPL[facility]ED BY [facility] Last Admin: 09/14/17 17:27 Dose: 10 mg Metoprolol Succinate (Toprol Xl) 50 mg PO DAILY [facility]PL[facility] BY [facility] Last Admin: 09/14/17 09:06 Dose: 50 mg Montelukast Sodium (Singulair) 10 mg PO DAILY [facility]PL[facility] BY [facility] Last Admin: 09/14/17 09:05 Dose: 10 mg Nitroglycerin (Nitrostat Sl Tab) 0.4 mg SL Q5M PRN PRN Reason: Pain, moderate (4-7) Last Admin: 09/03/17 16:09 Dose: 0.4 mg Nystatin (Nystop Topical Powder) 1 applic TOP TID REPLACED BY [facility] Last Admin: 09/14/17 17:27 Dose: 1 applic Nystatin (Nystatin Oral Susp) 5 ml PO QID REPLACED BY [facility] Last Admin: 09/14/17 21:44 Dose: 5 ml Pantoprazole Sodium (Protonix Ec Tab) 40 mg PO DAILY REPLACED BY [facility] Last Admin: 09/14/17 09:05 Dose: 40 mg Paroxetine HCl (Paxil) 20 mg PO DAILY REPL[facility]ED BY [facility] Last Admin: 09/14/17 09:05 Dose: 20 mg Pravastatin Sodium (Pravachol) 20 mg PO HS REPLACED BY [facility] Last Admin: 09/14/17 21:43 Dose: 20 mg Spironolactone (Aldactone) 25 mg PO DAILY REPL[facility]ED BY [facility] Last Admin: 09/14/17 09:06 Dose: 25 mg - Labs Labs: 09/15/17 05:19 18 05:19 PT 12.9 Seconds (9.8-13.1) 09/12/17 05:02 INR 1.2 (0.9-1.2) 09/12/17 05:02 APTT 32.7 Seconds (25.6-37.1) 09/11/17 09:02 - Constitutional Appears: Non-toxic, No Acute Distress - Head Exam Head Exam: ATRAUMATIC, NORMAL INSPECTION, NORMOCEPHALIC - Eye Exam Eye Exam: EOMI, Normal appearance - ENT Exam ENT Exam: Mucous Membranes Moist, Normal Exam - Neck Exam Neck Exam: Full ROM, Normal Inspection - Respiratory Exam Respiratory Exam: NORMAL BREATHING PATTERN. absent: Accessory Muscle Use, Chest Wall Tenderness, Rales, Respiratory Distress - Cardiovascular Exam Cardiovascular Exam: REGULAR RHYTHM, +S1, +S2 - GI/Abdominal Exam GI & Abdominal Exam: Soft, Normal Bowel Sounds. absent: Tenderness - Extremities Exam Extremities Exam: Normal Inspection. absent: Pedal Edema - Neurological Exam Neurological Exam: Alert, Awake. absent: Oriented x3 (dementia) - Psychiatric Exam Psychiatric exam: Normal Affect, Normal Mood - Skin Skin Exam: Dry, Intact, Normal Color, Warm Assessment and Plan - Assessment and Plan (Free Text) Assessment: 86F w/recurrent R pleural effusion s/p cardiac cath, stable Plan: cont diet cont pulmonary care/toilet Awaiting POA consent for anesthesia Low risk for VATS as per cardiology Further mgmt as per primary and professional employer consultant teams BASIA attending Sarah, PGY-1
[2017-09-15] MEDS: Nystatin 100,000 Units/ml Oral Susp 5 ml UD PO SCH ×4 (11:11→22:38)
[2017-09-15] MEDS: Metoprolol Succinate 50 mg XL Tab PO SCH (11:22)
[2017-09-15] MEDS: Pantoprazole 40 mg EC Tab PO SCH (11:23)
[2017-09-15] MEDS: Enoxaparin 40 mg Syringe SC SCH (11:24)
[2017-09-15] MEDS: Latanoprost 0.005% Opht SOUTION OU SCH (11:26)
--- NOTE | 2017-09-15 11:38 | PN ---
DATE: 09/15/2017 SUBJECTIVE: Patient seen and examined. Interim events noted. Consults noted and appreciated. Patient remains in progressive care unit on telemetry monitoring. Patient is awake, responsive. Feels okay. No chest pain. No shortness of breath. Eating . No problems with bladder or bowel. PHYSICAL EXAMINATION GENERAL: Patient is in no acute distress. VITAL SIGNS: Stable. HEART: S1 and S2, normal and regular. LUNGS: Good bilateral air exchange. ABDOMEN: Soft, nontender. . EXTREMITIES: No edema. No calf swelling. No tenderness. No acute ischemia. CENTRAL NERVOUS SYSTEM: Essentially unchanged. DIAGNOSTIC DATA: Available diagnostic data reviewed. ASSESSMENT AND PLAN: Overall, patient's general medical condition is stable. Plan as ordered. Jose Short MD
[2017-09-15] MEDS: Pravastatin Sodium 20 MG TAB PO SCH (22:37)
[2017-09-16 05:41] LABS: HEMOGLOBIN 10.2 g/dL (12.0-16.0); MEAN CORPUSCULAR HEMOGLOBIN 25.9 pg (27.0-31.0); MEAN CORPUSCULAR HGB CONC 33.2 g/dL (33.0-37.0); RBC 3.94 Mil/uL (3.80-5.20); RED CELL DISTRIBUTION WIDTH 15.1 % (11.5-14.5); WHITE BLOOD COUNT 7.2 K/uL (4.8-10.8)
[2017-09-16 06:27] LABS: ALB/GLOB RATIO 0.9 (1.0-2.1); ALBUMIN 3.1 g/dL (3.5-5.0); ALT/SGPT 35 U/L (9-52); AST/SGOT 20 U/L (14-36); BLOOD UREA NITROGEN 27 mg/dl (7-17); CALCIUM 8.9 mg/dL (8.4-10.2); GFR AFRICAN-AMERICAN > 60; GFR NON-AFRICAN AMERICAN > 60
--- NOTE | 2017-09-16 07:13 | CP.PCM.PN ---
Subjective - Date & Time of Evaluation Date of Evaluation: 09/16/17 Time of Evaluation: 07:13 - Subjective Subjective: Cardiothoracic Surgery Progress Note for Dr. Clinton This patient was seen and examined this AM at bedside. No acute events reported , she is laying comfortable in bed, she denies CP or SOB. Objective - Vital Signs/Intake and Output Vital Signs (last 24 hours): Temp Pulse Resp BP Pulse Ox 98.5 F 69 18 120/55 L 95 09/16/17 05:00 09/16/17 05:00 09/16/17 05:00 09/16/17 05:00 09/16/17 05:00 - Medications Medications: Current Medications Acetaminophen (Tylenol 325mg Tab) 650 mg PO Q6 PRN PRN Reason: Pain, moderate (4-7) Last Admin: 09/01/17 21:39 Dose: 650 mg Acetylcysteine (Acetylcysteine 20%) 2 ml INH RBID [facility] Last Admin: 09/15/17 19:55 Dose: 2 ml Albuterol Sulfate (Albuterol 0.083% Inhal Carmen (2.5 Mg/3 Ml) Ud) 2.5 mg INH RQ4 PRN PRN Reason: Shortness of Breath Albuterol/Ipratropium (Duoneb 3 Mg/0.5 Mg (3 Ml) Ud) 3 ml INH RQID [facility] Last Admin: 09/15/17 19:55 Dose: 3 ml Docusate Sodium (Colace) 200 mg PO DAILY [facility] Last Admin: 09/15/17 11:23 Dose: 200 mg Enoxaparin Sodium (Lovenox) 40 mg SC DAILY [facility] PRN Reason: Protocol Last Admin: 09/15/17 11:24 Dose: 40 mg Furosemide (Lasix) 20 mg PO DAILY [facility] Last Admin: 09/15/17 11:12 Dose: 20 mg Latanoprost (Xalatan Opht) 1 drop OU DAILY [facility] Last Admin: 09/15/17 11:26 Dose: 1 drop Losartan Potassium (Cozaar) 100 mg PO DAILY [facility] Last Admin: 09/15/17 11:22 Dose: 100 mg Memantine (Namenda) 10 mg PO BID [facility] Last Admin: 09/15/17 16:58 Dose: 10 mg Metoprolol Succinate (Toprol Xl) 50 mg PO DAILY [facility] Last Admin: 09/15/17 11:22 Dose: 50 mg Montelukast Sodium (Singulair) 10 mg PO DAILY [facility] Last Admin: 09/15/17 11:12 Dose: 10 mg Nitroglycerin (Nitrostat Sl Tab) 0.4 mg SL Q5M PRN PRN Reason: Pain, moderate (4-7) Last Admin: 09/03/17 16:09 Dose: 0.4 mg Nystatin (Nystop Topical Powder) 1 applic TOP TID [facility] Last Admin: 09/15/17 16:58 Dose: 1 applic Nystatin (Nystatin Oral Susp) 5 ml PO QID [facility] Last Admin: 09/15/17 22:38 Dose: 5 ml Pantoprazole Sodium (Protonix Ec Tab) 40 mg PO DAILY [facility] Last Admin: 09/15/17 11:23 Dose: 40 mg Paroxetine HCl (Paxil) 20 mg PO DAILY [facility] Last Admin: 09/15/17 11:12 Dose: 20 mg Pravastatin Sodium (Pravachol) 20 mg PO HS [facility] Last Admin: 09/15/17 22:37 Dose: 20 mg Spironolactone (Aldactone) 25 mg PO DAILY [facility] Last Admin: 09/15/17 11:23 Dose: 25 mg - Labs Labs: 09/16/17 04:20 09/16/17 04:20 PT 12.9 Seconds (9.8-13.1) 09/12/17 05:02 INR 1.2 (0.9-1.2) 09/12/17 05:02 APTT 32.7 Seconds (25.6-37.1) 09/11/17 09:02 - Constitutional Appears: Non-toxic, No Acute Distress - Head Exam Head Exam: ATRAUMATIC, NORMAL INSPECTION - Respiratory Exam Respiratory Exam: NORMAL BREATHING PATTERN. absent: Respiratory Distress - Cardiovascular Exam Cardiovascular Exam: +S1, +S2. absent: Tachycardia - Neurological Exam Neurological Exam: Alert, Awake. absent: Oriented x3 (dementia) - Psychiatric Exam Psychiatric exam: Normal Affect, Normal Mood - Skin Skin Exam: Dry, Warm Assessment and Plan - Assessment and Plan (Free Text) Assessment: This is an 86F with recurrent right pleural effusion s/p cardiac cath Plan: Cont diet Cont pulmonary care Awaiting POA consent for anesthesia if POA Low risk for VATS as per cardiology Further mgmt as per primary team Discuss with Dr. Mary Beth Terry PGY2
--- NOTE | 2017-09-16 08:25 | CP.PCM.PN ---
Subjective - Date & Time of Evaluation Date of Evaluation: 09/16/17 Time of Evaluation: :18 - Subjective Subjective: Interim events reviewed. Lying in bed comfortably. Vital signs remain stable. No complaints of SOB or chest pain. Admits to occasional cough (non-productive). Labs and current medications reviewed. CO2 improved and chloride normalized. No dependant edema, no cyanosis. Neck is supple and trachea midline. No chest dullness anteriorly, no subcut emphysema. Breath sounds present equally, anteriorly. Breath sounds decreased posteriorly on the right. Breath sounds absent in the right base posteriorly. Dry rales in LL's bilaterally. No wheezes or bronchial breath sounds. Heart sounds are distant, rhythm is regular. Will re-eval effusion on current therapy (CXR and weight). Likely unchanged, or minimally decreased effusion expected. Will probably still need VATS with biopsy and pleurodesis. Objective - Vital Signs/Intake and Output Vital Signs (last 24 hours): Temp Pulse Resp BP Pulse Ox 98.4 F 64 20 122/55 L 99 09/16/17 08:00 09/16/17 08:00 09/16/17 08:00 09/16/17 08:00 09/16/17 08:00 Intake and Output: 09/15/17 09/16/17 23:59 11:59 Intake Total 800 Balance 800 - Medications Medications: Current Medications Acetaminophen (Tylenol 325mg Tab) 650 mg PO Q6 PRN PRN Reason: Pain, moderate (4-7) Last Admin: 09/01/17 21:39 Dose: 650 mg Acetylcysteine (Acetylcysteine 20%) 2 ml INH RBID [facility] Last Admin: 09/15/17 19:55 Dose: 2 ml Albuterol Sulfate (Albuterol 0.083% Inhal Carmen (2.5 Mg/3 Ml) Ud) 2.5 mg INH RQ4 PRN PRN Reason: Shortness of Breath Albuterol/Ipratropium (Duoneb 3 Mg/0.5 Mg (3 Ml) Ud) 3 ml INH RQID [facility] Last Admin: 09/15/17 19:55 Dose: 3 ml Docusate Sodium (Colace) 200 mg PO DAILY [facility] Last Admin: 09/15/17 11:23 Dose: 200 mg Enoxaparin Sodium (Lovenox) 40 mg SC DAILY [facility] PRN Reason: Protocol Last Admin: 09/15/17 11:24 Dose: 40 mg Furosemide (Lasix) 20 mg PO DAILY [facility] Last Admin: 09/15/17 11:12 Dose: 20 mg Latanoprost (Xalatan Opht) 1 drop OU DAILY [facility] Last Admin: 09/15/17 11:26 Dose: 1 drop Losartan Potassium (Cozaar) 100 mg PO DAILY [facility] Last Admin: 09/15/17 11:22 Dose: 100 mg Memantine (Namenda) 10 mg PO BID [facility] Last Admin: 09/15/17 16:58 Dose: 10 mg Metoprolol Succinate (Toprol Xl) 50 mg PO DAILY [facility] Last Admin: 09/15/17 11:22 Dose: 50 mg Montelukast Sodium (Singulair) 10 mg PO DAILY [facility] Last Admin: 09/15/17 11:12 Dose: 10 mg Nitroglycerin (Nitrostat Sl Tab) 0.4 mg SL Q5M PRN PRN Reason: Pain, moderate (4-7) Last Admin: 09/03/17 16:09 Dose: 0.4 mg Nystatin (Nystop Topical Powder) 1 applic TOP TID [facility] Last Admin: 09/15/17 16:58 Dose: 1 applic Pantoprazole Sodium (Protonix Ec Tab) 40 mg PO DAILY [facility] Last Admin: 09/15/17 11:23 Dose: 40 mg Paroxetine HCl (Paxil) 20 mg PO DAILY [facility] Last Admin: 09/15/17 11:12 Dose: 20 mg Pravastatin Sodium (Pravachol) 20 mg PO HS [facility] Last Admin: 09/15/17 22:37 Dose: 20 mg Spironolactone (Aldactone) 25 mg PO DAILY [facility] Last Admin: 09/15/17 11:23 Dose: 25 mg - Labs Labs: 09/16/17 04:20 09/16/17 04:20 PT 12.9 Seconds (9.8-13.1) 09/12/17 05:02 INR 1.2 (0.9-1.2) 09/12/17 05:02 APTT 32.7 Seconds (25.6-37.1) 09/11/17 09:02 Assessment and Plan (1) Pleural effusion Status: Acute (2) Chronic asthma Status: Chronic (3) Dementia Status: Chronic (4) Myocardial ischemia Status: Acute
[2017-09-16] MEDS: Metoprolol Succinate 50 mg XL Tab PO SCH (08:39)
[2017-09-16] MEDS: Latanoprost 0.005% Opht SOUTION OU SCH (08:40)
[2017-09-16] MEDS: Pantoprazole 40 mg EC Tab PO SCH (08:40)
[2017-09-16] MEDS: Enoxaparin 40 mg Syringe SC SCH (08:41)
--- NOTE | 2017-09-16 10:04 | RAD ---
HISTORY: pleural effusion COMPARISON: 09/12/2017 FINDINGS: LUNGS: No definite infiltrate. Cannot exclude infiltrate at right base due to superimposed pleural effusion. PLEURA: Small right pleural effusion. No left pleural effusion. No pneumothorax. CARDIOVASCULAR: Normal. OSSEOUS STRUCTURES: No significant abnormalities. VISUALIZED UPPER ABDOMEN: Normal. OTHER FINDINGS: None. IMPRESSION: Small right pleural effusion. No definite infiltrate. No significant interval change.
[2017-09-16] MEDS: Albuterol-Ipratrop 3 mg / 0.5 (3 ml) UD INH SCH ×3 (11:31→19:21)
--- NOTE | 2017-09-16 11:50 | CP.PCM.PN ---
Subjective - Date & Time of Evaluation Date of Evaluation: 09/15/17 Time of Evaluation: 19:00 - Subjective Subjective: laying in bed comfortably Objective - Vital Signs/Intake and Output Vital Signs (last 24 hours): Temp Pulse Resp BP Pulse Ox 98.6 F 70 18 118/55 L 99 09/15/17 05:00 09/15/17 05:00 09/15/17 05:00 09/15/17 05:00 09/15/17 05:00 Intake and Output: 09/15/17 09/15/17 06:59 18:59 Intake Total 150 Balance 150 Intake and Output: - Medications Medications: Current Medications Acetaminophen (Tylenol 325mg Tab) 650 mg PO Q6 PRN PRN Reason: Pain, moderate (4-7) Last Admin: 09/01/17 21:39 Dose: 650 mg Acetylcysteine (Acetylcysteine 20%) 2 ml INH RBID [facility] Last Admin: 09/15/17 19:55 Dose: 2 ml Albuterol Sulfate (Albuterol 0.083% Inhal Carmen (2.5 Mg/3 Ml) Ud) 2.5 mg INH RQ4 PRN PRN Reason: Shortness of Breath Albuterol/Ipratropium (Duoneb 3 Mg/0.5 Mg (3 Ml) Ud) 3 ml INH RQID [facility] Last Admin: 09/16/17 11:31 Dose: 3 ml Docusate Sodium (Colace) 200 mg PO DAILY [facility] Last Admin: 09/16/17 08:40 Dose: 200 mg Enoxaparin Sodium (Lovenox) 40 mg SC DAILY [facility] PRN Reason: Protocol Last Admin: 09/16/17 08:41 Dose: 40 mg Furosemide (Lasix) 20 mg PO DAILY [facility] Last Admin: 09/16/17 08:44 Dose: 20 mg Latanoprost (Xalatan Opht) 1 drop OU DAILY [facility] Last Admin: 09/16/17 08:40 Dose: 1 drop Losartan Potassium (Cozaar) 100 mg PO DAILY [facility] Last Admin: 09/16/17 08:41 Dose: 100 mg Memantine (Namenda) 10 mg PO BID [facility] Last Admin: 09/16/17 08:40 Dose: 10 mg Metoprolol Succinate (Toprol Xl) 50 mg PO DAILY [facility] Last Admin: 09/16/17 08:39 Dose: 50 mg Montelukast Sodium (Singulair) 10 mg PO DAILY [facility] Last Admin: 09/16/17 08:39 Dose: 10 mg Nitroglycerin (Nitrostat Sl Tab) 0.4 mg SL Q5M PRN PRN Reason: Pain, moderate (4-7) Last Admin: 09/03/17 16:09 Dose: 0.4 mg Nystatin (Nystop Topical Powder) 1 applic TOP TID [facility] Last Admin: 09/16/17 08:40 Dose: 1 applic Pantoprazole Sodium (Protonix Ec Tab) 40 mg PO DAILY [facility] Last Admin: 09/16/17 08:40 Dose: 40 mg Paroxetine HCl (Paxil) 20 mg PO DAILY [facility] Last Admin: 09/16/17 08:39 Dose: 20 mg Pravastatin Sodium (Pravachol) 20 mg PO HS [facility] Last Admin: 09/15/17 22:37 Dose: 20 mg Spironolactone (Aldactone) 25 mg PO DAILY [facility] Last Admin: 09/15/17 11:23 Dose: 25 mg - Labs Labs: 09/16/17 04:20 09/16/17 04:20 PT 12.9 Seconds (9.8-13.1) 09/12/17 05:02 INR 1.2 (0.9-1.2) 09/12/17 05:02 APTT 32.7 Seconds (25.6-37.1) 09/11/17 09:02 - Constitutional Appears: Well - Head Exam Head Exam: ATRAUMATIC, NORMAL INSPECTION, NORMOCEPHALIC - Eye Exam Eye Exam: EOMI, Normal appearance, PERRL Pupil Exam: NORMAL ACCOMODATION, PERRL - ENT Exam ENT Exam: Mucous Membranes Moist, Normal Exam - Neck Exam Neck Exam: Full ROM, Normal Inspection. absent: Lymphadenopathy - Respiratory Exam Respiratory Exam: Clear to Ausculation Bilateral, NORMAL BREATHING PATTERN - Cardiovascular Exam Cardiovascular Exam: REGULAR RHYTHM, +S1, +S2. absent: Murmur - GI/Abdominal Exam GI & Abdominal Exam: Soft, Normal Bowel Sounds. absent: Tenderness - Extremities Exam Extremities Exam: Full ROM, Normal Capillary Refill, Normal Inspection. absent : Joint Swelling, Pedal Edema - Back Exam Back Exam: NORMAL INSPECTION - Neurological Exam Neurological Exam: Alert, Awake, CN II-XII Intact, Oriented x3 - Psychiatric Exam Psychiatric exam: Normal Affect, Normal Mood - Skin Skin Exam: Dry, Intact, Normal Color, Warm Assessment and Plan (1) CHF (congestive heart failure), NYHA class II Assessment & Plan: chronic diastolic CHF cont lasix, cozaar and bb Status: Acute (2) NSVT (nonsustained ventricular tachycardia) Assessment & Plan: cont bb Status: Acute (3) Preop cardiovascular exam Assessment & Plan: ok to proceed with surgery Status: Acute (4) Pleural effusion Status: Acute (5) Chronic asthma Status: Chronic (6) Hyperlipidemia Status: Chronic (7) Hypertension Status: Chronic
--- NOTE | 2017-09-16 11:52 | CP.PCM.PN ---
Subjective - Date & Time of Evaluation Date of Evaluation: 09/16/17 Time of Evaluation: 11:51 - Subjective Subjective: feeling fine no complaints POA refused consent for surgery Objective - Vital Signs/Intake and Output Vital Signs (last 24 hours): Temp Pulse Resp BP Pulse Ox 98.4 F 64 20 122/55 L 99 09/16/17 09:00 09/16/17 09:00 09/16/17 09:00 09/16/17 09:00 09/16/17 09:00 Intake and Output: 09/16/17 09/16/17 06:59 18:59 Intake Total 200 Balance 200 - Medications Medications: Current Medications Acetaminophen (Tylenol 325mg Tab) 650 mg PO Q6 PRN PRN Reason: Pain, moderate (4-7) Last Admin: 09/01/17 21:39 Dose: 650 mg Acetylcysteine (Acetylcysteine 20%) 2 ml INH RBID [facility] Last Admin: 09/15/17 19:55 Dose: 2 ml Albuterol Sulfate (Albuterol 0.083% Inhal Carmen (2.5 Mg/3 Ml) Ud) 2.5 mg INH RQ4 PRN PRN Reason: Shortness of Breath Albuterol/Ipratropium (Duoneb 3 Mg/0.5 Mg (3 Ml) Ud) 3 ml INH RQID [facility] Last Admin: 09/16/17 11:31 Dose: 3 ml Docusate Sodium (Colace) 200 mg PO DAILY [facility] Last Admin: 09/16/17 08:40 Dose: 200 mg Enoxaparin Sodium (Lovenox) 40 mg SC DAILY [facility] PRN Reason: Protocol Last Admin: 09/16/17 08:41 Dose: 40 mg Furosemide (Lasix) 20 mg PO DAILY [facility] Last Admin: 09/16/17 08:44 Dose: 20 mg Latanoprost (Xalatan Opht) 1 drop OU DAILY [facility] Last Admin: 09/16/17 08:40 Dose: 1 drop Losartan Potassium (Cozaar) 100 mg PO DAILY [facility] Last Admin: 09/16/17 08:41 Dose: 100 mg Memantine (Namenda) 10 mg PO BID [facility] Last Admin: 09/16/17 08:40 Dose: 10 mg Metoprolol Succinate (Toprol Xl) 50 mg PO DAILY [facility] Last Admin: 09/16/17 08:39 Dose: 50 mg Montelukast Sodium (Singulair) 10 mg PO DAILY [facility] Last Admin: 09/16/17 08:39 Dose: 10 mg Nitroglycerin (Nitrostat Sl Tab) 0.4 mg SL Q5M PRN PRN Reason: Pain, moderate (4-7) Last Admin: 09/03/17 16:09 Dose: 0.4 mg Nystatin (Nystop Topical Powder) 1 applic TOP TID [facility] Last Admin: 09/16/17 08:40 Dose: 1 applic Pantoprazole Sodium (Protonix Ec Tab) 40 mg PO DAILY [facility] Last Admin: 09/16/17 08:40 Dose: 40 mg Paroxetine HCl (Paxil) 20 mg PO DAILY [facility] Last Admin: 09/16/17 08:39 Dose: 20 mg Pravastatin Sodium (Pravachol) 20 mg PO HS [facility] Last Admin: 09/15/17 22:37 Dose: 20 mg Spironolactone (Aldactone) 25 mg PO DAILY [facility] Last Admin: 09/15/17 11:23 Dose: 25 mg - Labs Labs: 09/16/17 04:20 09/16/17 04:20 PT 12.9 Seconds (9.8-13.1) 09/12/17 05:02 INR 1.2 (0.9-1.2) 09/12/17 05:02 APTT 32.7 Seconds (25.6-37.1) 09/11/17 09:02 - Constitutional Appears: Well - Head Exam Head Exam: ATRAUMATIC, NORMAL INSPECTION, NORMOCEPHALIC - Eye Exam Eye Exam: EOMI, Normal appearance, PERRL Pupil Exam: NORMAL ACCOMODATION, PERRL - ENT Exam ENT Exam: Mucous Membranes Moist, Normal Exam - Neck Exam Neck Exam: Full ROM, Normal Inspection. absent: Lymphadenopathy - Respiratory Exam Respiratory Exam: Clear to Ausculation Bilateral, Rales, NORMAL BREATHING PATTERN - Cardiovascular Exam Cardiovascular Exam: REGULAR RHYTHM, +S1, +S2, Murmur - GI/Abdominal Exam GI & Abdominal Exam: Soft, Normal Bowel Sounds. absent: Tenderness - Extremities Exam Extremities Exam: Full ROM, Normal Capillary Refill, Normal Inspection. absent : Joint Swelling, Pedal Edema - Back Exam Back Exam: NORMAL INSPECTION - Neurological Exam Neurological Exam: Alert, Awake, CN II-XII Intact, Oriented x3 - Psychiatric Exam Psychiatric exam: Normal Affect, Normal Mood - Skin Skin Exam: Dry, Intact, Normal Color, Warm Assessment and Plan (1) CHF (congestive heart failure), NYHA class II Status: Acute (2) NSVT (nonsustained ventricular tachycardia) Status: Acute (3) Preop cardiovascular exam Status: Acute (4) Pleural effusion Status: Acute (5) Chronic asthma Status: Chronic (6) Hyperlipidemia Status: Chronic (7) Hypertension Status: Chronic
--- NOTE | 2017-09-16 14:45 | CP.PCM.PN ---
Subjective - Date & Time of Evaluation Date of Evaluation: 09/16/17 Time of Evaluation: 09:15 - Subjective Subjective: Patient seen and examined at bedside. Denies SOB, weakness, dizziness or chills. No complaints at this time. Objective - Vital Signs/Intake and Output Vital Signs (last 24 hours): Temp Pulse Resp BP Pulse Ox 98.8 F 65 20 142/59 L 98 09/16/17 12:00 09/16/17 12:00 09/16/17 12:00 09/16/17 12:00 09/16/17 12:00 Intake and Output: 09/16/17 09/16/17 06:59 18:59 Intake Total 200 Balance 200 - Medications Medications: Current Medications Acetaminophen (Tylenol 325mg Tab) 650 mg PO Q6 PRN PRN Reason: Pain, moderate (4-7) Last Admin: 09/01/17 21:39 Dose: 650 mg Acetylcysteine (Acetylcysteine 20%) 2 ml INH RBID [facility] Last Admin: 09/15/17 19:55 Dose: 2 ml Albuterol Sulfate (Albuterol 0.083% Inhal Carmen (2.5 Mg/3 Ml) Ud) 2.5 mg INH RQ4 PRN PRN Reason: Shortness of Breath Albuterol/Ipratropium (Duoneb 3 Mg/0.5 Mg (3 Ml) Ud) 3 ml INH RQID [facility] Last Admin: 09/16/17 11:31 Dose: 3 ml Docusate Sodium (Colace) 200 mg PO DAILY [facility] Last Admin: 09/16/17 08:40 Dose: 200 mg Enoxaparin Sodium (Lovenox) 40 mg SC DAILY [facility] PRN Reason: Protocol Last Admin: 09/16/17 08:41 Dose: 40 mg Furosemide (Lasix) 20 mg PO DAILY [facility] Last Admin: 09/16/17 08:44 Dose: 20 mg Latanoprost (Xalatan Opht) 1 drop OU DAILY [facility] Last Admin: 09/16/17 08:40 Dose: 1 drop Losartan Potassium (Cozaar) 100 mg PO DAILY [facility] Last Admin: 09/16/17 08:41 Dose: 100 mg Memantine (Namenda) 10 mg PO BID [facility] Last Admin: 09/16/17 08:40 Dose: 10 mg Metoprolol Succinate (Toprol Xl) 50 mg PO DAILY [facility] Last Admin: 09/16/17 08:39 Dose: 50 mg Montelukast Sodium (Singulair) 10 mg PO DAILY [facility] Last Admin: 09/16/17 08:39 Dose: 10 mg Nitroglycerin (Nitrostat Sl Tab) 0.4 mg SL Q5M PRN PRN Reason: Pain, moderate (4-7) Last Admin: 09/03/17 16:09 Dose: 0.4 mg Nystatin (Nystop Topical Powder) 1 applic TOP TID [facility] Last Admin: 09/16/17 08:40 Dose: 1 applic Pantoprazole Sodium (Protonix Ec Tab) 40 mg PO DAILY [facility] Last Admin: 09/16/17 08:40 Dose: 40 mg Paroxetine HCl (Paxil) 20 mg PO DAILY [facility] Last Admin: 09/16/17 08:39 Dose: 20 mg Pravastatin Sodium (Pravachol) 20 mg PO HS [facility] Last Admin: 09/15/17 22:37 Dose: 20 mg Spironolactone (Aldactone) 25 mg PO DAILY [facility] Last Admin: 09/15/17 11:23 Dose: 25 mg - Labs Labs: 09/16/17 04:20 09/16/17 04:20 PT 12.9 Seconds (9.8-13.1) 09/12/17 05:02 INR 1.2 (0.9-1.2) 09/12/17 05:02 APTT 32.7 Seconds (25.6-37.1) 09/11/17 09:02 - Constitutional Appears: No Acute Distress - Head Exam Head Exam: ATRAUMATIC, NORMOCEPHALIC - Eye Exam Eye Exam: EOMI, PERRL - ENT Exam ENT Exam: Mucous Membranes Moist - Neck Exam Neck Exam: Full ROM. absent: Lymphadenopathy - Respiratory Exam Respiratory Exam: Decreased Breath Sounds (on RLL), NORMAL BREATHING PATTERN. absent: Rales, Rhonchi - Cardiovascular Exam Cardiovascular Exam: REGULAR RHYTHM, +S1, +S2 - GI/Abdominal Exam GI & Abdominal Exam: Soft (obese), Normal Bowel Sounds. absent: Tenderness - Extremities Exam Extremities Exam: Full ROM - Psychiatric Exam Psychiatric exam: Normal Affect, Normal Mood - Skin Skin Exam: Dry, Intact, Normal Color, Warm Assessment and Plan - Assessment and Plan (Free Text) Assessment: 86 yr old admitted for recurrent pleural effusion. Patient was awaiting VATS procedure, power of deputy county attorney refused to sign consent upon discussion with anesthesia. Pulmonary and cardiology on board. Recommendation remains for VATS with biopsy and pleurodesis. 1. Pleural effusion -recurrent -09/16/17: CXR: small right pleural effusion -Cassandra Architect consult appreciated: Dr. Gamboa :will re-evaluate pleural effusion , likely will need VATS with biopsy and pleurodesis. -Cardiothoracic consult appreciated pt will need VATS with lung biopsy and pleurodesis.Surgery cancelled. will be reschedulled due to anesthesia consenting missing -Myocardial perfusion scan: potentially ischemic myocardium involving inferior wall which represent right coronary artery territory. -Coronary catherization: Nonobstructive coronary artery disease as well as spasm of the right coronary artery. Mild nonobstructive disease in the left anterior descending. Normal ejection fraction with elevated filling pressures. -Electronic Technician consult appreciated:Dr. Fernandez: low risk for perioperative cardiac event. pt will need low dose diuretic therapy and afterload reducers for diastolic CHF 2. Chronic asthma -Chronic, stable 3. HTN -chronic, controlled 4. Dementia -Chronic, stable 5. DVT prophylaxis -Lovenox 40 mg SC QD
[2017-09-16] MEDS: Acetylcysteine 20% Inhal Soln (4ml) INH SCH (19:21)
[2017-09-16] MEDS: Pravastatin Sodium 20 MG TAB PO SCH (22:04)
[2017-09-17 05:43] LABS: HEMOGLOBIN 9.8 g/dL (12.0-16.0); MEAN CORPUSCULAR HEMOGLOBIN 25.3 pg (27.0-31.0); MEAN CORPUSCULAR HGB CONC 32.4 g/dL (33.0-37.0); RBC 3.89 Mil/uL (3.80-5.20); RED CELL DISTRIBUTION WIDTH 14.8 % (11.5-14.5); WHITE BLOOD COUNT 6.7 K/uL (4.8-10.8)
[2017-09-17 06:02] LABS: ALBUMIN 3.1 g/dL (3.5-5.0); ALT/SGPT 34 U/L (9-52); AST/SGOT 27 U/L (14-36); BLOOD UREA NITROGEN 23 mg/dl (7-17); CALCIUM 9.2 mg/dL (8.4-10.2); GFR AFRICAN-AMERICAN > 60; GFR NON-AFRICAN AMERICAN > 60
[2017-09-17] MEDS: Albuterol-Ipratrop 3 mg / 0.5 (3 ml) UD INH SCH ×4 (07:29→19:33)
[2017-09-17] MEDS: Acetylcysteine 20% Inhal Soln (4ml) INH SCH ×2 (07:30→19:33)
--- NOTE | 2017-09-17 08:19 | CP.PCM.PN ---
Subjective - Date & Time of Evaluation Date of Evaluation: 09/17/17 Time of Evaluation: 08:17 - Subjective Subjective: Remains cliniclly unchanged. Spoke with her POA yesterday afternoon. She will discuss with surgery and anesthesia. Repeat CXR shows stable right sided pleural effusion. Still would benefit from VATS/pleurodesis and biopsy. Objective - Vital Signs/Intake and Output Vital Signs (last 24 hours): Temp Pulse Resp BP Pulse Ox 98.0 F 57 L 18 116/51 L 96 09/17/17 04:53 09/17/17 04:53 09/17/17 04:53 09/17/17 04:53 09/17/17 04:53 - Medications Medications: Current Medications Acetaminophen (Tylenol 325mg Tab) 650 mg PO Q6 PRN PRN Reason: Pain, moderate (4-7) Last Admin: 09/16/17 23:55 Dose: 650 mg Acetylcysteine (Acetylcysteine 20%) 2 ml INH RBID [facility] Last Admin: 09/17/17 07:30 Dose: 2 ml Albuterol Sulfate (Albuterol 0.083% Inhal Carmen (2.5 Mg/3 Ml) Ud) 2.5 mg INH RQ4 PRN PRN Reason: Shortness of Breath Albuterol/Ipratropium (Duoneb 3 Mg/0.5 Mg (3 Ml) Ud) 3 ml INH RQID [facility] Last Admin: 09/17/17 07:29 Dose: 3 ml Docusate Sodium (Colace) 200 mg PO DAILY [facility] Last Admin: 09/16/17 08:40 Dose: 200 mg Enoxaparin Sodium (Lovenox) 40 mg SC DAILY [facility] PRN Reason: Protocol Last Admin: 09/16/17 08:41 Dose: 40 mg Furosemide (Lasix) 20 mg PO DAILY [facility] Last Admin: 09/16/17 08:44 Dose: 20 mg Latanoprost (Xalatan Opht) 1 drop OU DAILY [facility] Last Admin: 09/16/17 08:40 Dose: 1 drop Losartan Potassium (Cozaar) 100 mg PO DAILY [facility] Last Admin: 09/16/17 08:41 Dose: 100 mg Memantine (Namenda) 10 mg PO BID [facility] Last Admin: 09/16/17 16:57 Dose: 10 mg Metoprolol Succinate (Toprol Xl) 50 mg PO DAILY [facility] Last Admin: 09/16/17 08:39 Dose: 50 mg Montelukast Sodium (Singulair) 10 mg PO DAILY [facility] Last Admin: 09/16/17 08:39 Dose: 10 mg Nitroglycerin (Nitrostat Sl Tab) 0.4 mg SL Q5M PRN PRN Reason: Pain, moderate (4-7) Last Admin: 09/03/17 16:09 Dose: 0.4 mg Nystatin (Nystop Topical Powder) 1 applic TOP TID [facility] Last Admin: 09/16/17 16:57 Dose: 1 applic Pantoprazole Sodium (Protonix Ec Tab) 40 mg PO DAILY [facility] Last Admin: 09/16/17 08:40 Dose: 40 mg Paroxetine HCl (Paxil) 20 mg PO DAILY [facility] Last Admin: 09/16/17 08:39 Dose: 20 mg Pravastatin Sodium (Pravachol) 20 mg PO HS [facility] Last Admin: 09/16/17 22:04 Dose: 20 mg Spironolactone (Aldactone) 25 mg PO DAILY [facility] Last Admin: 09/16/17 17:00 Dose: 25 mg - Labs Labs: 09/17/17 04:30 09/17/17 04:30 PT 12.9 Seconds (9.8-13.1) 09/12/17 05:02 INR 1.2 (0.9-1.2) 09/12/17 05:02 APTT 32.7 Seconds (25.6-37.1) 09/11/17 09:02 Assessment and Plan (1) Pleural effusion Status: Acute (2) Chronic asthma Status: Chronic (3) Dementia Status: Chronic (4) Myocardial ischemia Status: Acute
--- NOTE | 2017-09-17 08:54 | CP.PCM.PN ---
<Geena Pineda - Last Filed: 09/17/17 11:52> Subjective - Date & Time of Evaluation Date of Evaluation: 09/17/17 Time of Evaluation: 08:52 - Subjective Subjective: PGY2 progress note for cardiology, Dr. Fernandez Pt seen and examined at bedside. No acute events overnight per nurse. Pt is resting comfortably. Denies having any CP, SOB, abd pain, N/V/D/C. 12 point ROS negative except for the above mentioned. Objective - Vital Signs/Intake and Output Vital Signs (last 24 hours): Temp Pulse Resp BP Pulse Ox 97.8 F 60 18 129/49 L 98 09/17/17 08:00 09/17/17 08:00 09/17/17 08:00 09/17/17 08:00 09/17/17 08:00 - Medications Medications: Current Medications Acetaminophen (Tylenol 325mg Tab) 650 mg PO Q6 PRN PRN Reason: Pain, moderate (4-7) Last Admin: 09/16/17 23:55 Dose: 650 mg Acetylcysteine (Acetylcysteine 20%) 2 ml INH RBID [facility] Last Admin: 09/17/17 07:30 Dose: 2 ml Albuterol Sulfate (Albuterol 0.083% Inhal Carmen (2.5 Mg/3 Ml) Ud) 2.5 mg INH RQ4 PRN PRN Reason: Shortness of Breath Albuterol/Ipratropium (Duoneb 3 Mg/0.5 Mg (3 Ml) Ud) 3 ml INH RQID [facility] Last Admin: 09/17/17 07:29 Dose: 3 ml Docusate Sodium (Colace) 200 mg PO DAILY [facility] Last Admin: 09/16/17 08:40 Dose: 200 mg Enoxaparin Sodium (Lovenox) 40 mg SC DAILY [facility] PRN Reason: Protocol Last Admin: 09/16/17 08:41 Dose: 40 mg Furosemide (Lasix) 20 mg PO DAILY [facility] Last Admin: 09/16/17 08:44 Dose: 20 mg Latanoprost (Xalatan Opht) 1 drop OU DAILY [facility] Last Admin: 09/16/17 08:40 Dose: 1 drop Losartan Potassium (Cozaar) 100 mg PO DAILY [facility] Last Admin: 09/16/17 08:41 Dose: 100 mg Memantine (Namenda) 10 mg PO BID [facility] Last Admin: 09/16/17 16:57 Dose: 10 mg Metoprolol Succinate (Toprol Xl) 50 mg PO DAILY [facility] Last Admin: 09/16/17 08:39 Dose: 50 mg Montelukast Sodium (Singulair) 10 mg PO DAILY [facility] Last Admin: 09/16/17 08:39 Dose: 10 mg Nitroglycerin (Nitrostat Sl Tab) 0.4 mg SL Q5M PRN PRN Reason: Pain, moderate (4-7) Last Admin: 09/03/17 16:09 Dose: 0.4 mg Nystatin (Nystop Topical Powder) 1 applic TOP TID [facility] Last Admin: 09/16/17 16:57 Dose: 1 applic Pantoprazole Sodium (Protonix Ec Tab) 40 mg PO DAILY [facility] Last Admin: 09/16/17 08:40 Dose: 40 mg Paroxetine HCl (Paxil) 20 mg PO DAILY [facility] Last Admin: 09/16/17 08:39 Dose: 20 mg Pravastatin Sodium (Pravachol) 20 mg PO HS [facility] Last Admin: 09/16/17 22:04 Dose: 20 mg Spironolactone (Aldactone) 25 mg PO DAILY [facility] Last Admin: 09/16/17 17:00 Dose: 25 mg - Labs Labs: 09/17/17 04:30 09/17/17 04:30 PT 12.9 Seconds (9.8-13.1) 09/12/17 05:02 INR 1.2 (0.9-1.2) 09/12/17 05:02 APTT 32.7 Seconds (25.6-37.1) 09/11/17 09:02 - Constitutional Appears: Non-toxic, No Acute Distress - Head Exam Head Exam: ATRAUMATIC - ENT Exam ENT Exam: Mucous Membranes Moist - Respiratory Exam Respiratory Exam: Decreased Breath Sounds (on right lung ). absent: Accessory Muscle Use, Rhonchi, Wheezes, Respiratory Distress - Cardiovascular Exam Cardiovascular Exam: REGULAR RHYTHM, +S1, +S2. absent: Gallop, Rubs, Murmur - GI/Abdominal Exam GI & Abdominal Exam: Soft, Normal Bowel Sounds. absent: Distended, Firm, Guarding, Rigid, Tenderness, Organomegaly - Neurological Exam Neurological Exam: Alert, Awake, Oriented x3 - Psychiatric Exam Psychiatric exam: Normal Affect, Normal Mood - Skin Skin Exam: Dry, Intact, Normal Color, Warm Assessment and Plan - Assessment and Plan (Free Text) Assessment: 86 year old female with past medical history of HTN, HLD, and right pleural effusion is being seen of cardiac clearance for right VATS procedure. Cardiac cath procedure showed non-obstructive coronary disease as well as spasm of RCA. Mild non-obstructive LAD. Normal EF with elevated filling pressure. Recommend aggressive medical management. Pre-op medical clearance for VATS procedure Low risk for adverse cardiac event during non-cardiac VATS procedure per ACC/ AHA guidelines. Still waiting for POA for consent for surgery Pleural effusion VATS currently cancelled. No anesthesia consent obtained Diastolic CHF Normal EF with increased filling pressures Continue lasixs & aldactone HTN continue to monitor Currently on Cozaar and metoprolol Non-sustained V. tach Pt sustained 9 beats of V tach overnight. Currently on Toprol XL 50 mg PO qd Mg normal Case discussed with attending, Dr. Fernandez. <Renzo Fernandez - Last Filed: 09/17/17 23:05> Objective - Vital Signs/Intake and Output Vital Signs (last 24 hours): Temp Pulse Resp BP Pulse Ox 98.6 F 60 20 113/68 96 09/17/17 20:05 09/17/17 20:05 09/17/17 20:05 09/17/17 20:05 09/17/17 20:05 - Medications Medications: Current Medications Acetaminophen (Tylenol 325mg Tab) 650 mg PO Q6 PRN PRN Reason: Pain, moderate (4-7) Last Admin: 09/16/17 23:55 Dose: 650 mg Acetylcysteine (Acetylcysteine 20%) 2 ml INH RBID [facility] Last Admin: 09/17/17 19:33 Dose: 2 ml Albuterol Sulfate (Albuterol 0.083% Inhal Carmen (2.5 Mg/3 Ml) Ud) 2.5 mg INH RQ4 PRN PRN Reason: Shortness of Breath Albuterol/Ipratropium (Duoneb 3 Mg/0.5 Mg (3 Ml) Ud) 3 ml INH RQID [facility] Last Admin: 09/17/17 19:33 Dose: 3 ml Docusate Sodium (Colace) 200 mg PO DAILY [facility] Last Admin: 09/17/17 09:01 Dose: 200 mg Enoxaparin Sodium (Lovenox) 40 mg SC DAILY [facility] PRN Reason: Protocol Last Admin: 09/17/17 09:01 Dose: 40 mg Furosemide (Lasix) 20 mg PO DAILY [facility] Last Admin: 09/17/17 09:13 Dose: 20 mg Latanoprost (Xalatan Opht) 1 drop OU DAILY [facility] Last Admin: 09/17/17 09:01 Dose: 1 drop Losartan Potassium (Cozaar) 100 mg PO DAILY [facility] Last Admin: 09/17/17 09:03 Dose: 100 mg Memantine (Namenda) 10 mg PO BID [facility] Last Admin: 09/17/17 19:20 Dose: 10 mg Metoprolol Succinate (Toprol Xl) 50 mg PO DAILY [facility] Last Admin: 09/17/17 09:02 Dose: 50 mg Montelukast Sodium (Singulair) 10 mg PO DAILY [facility] Last Admin: 09/17/17 09:20 Dose: 10 mg Nitroglycerin (Nitrostat Sl Tab) 0.4 mg SL Q5M PRN PRN Reason: Pain, moderate (4-7) Last Admin: 09/03/17 16:09 Dose: 0.4 mg Pantoprazole Sodium (Protonix Ec Tab) 40 mg PO DAILY [facility] Last Admin: 09/17/17 09:03 Dose: 40 mg Paroxetine HCl (Paxil) 20 mg PO DAILY [facility] Last Admin: 09/17/17 09:02 Dose: 20 mg Pravastatin Sodium (Pravachol) 20 mg PO HS [facility] Last Admin: 09/17/17 21:48 Dose: 20 mg Spironolactone (Aldactone) 25 mg PO DAILY [facility] Last Admin: 09/17/17 09:02 Dose: 25 mg - Labs Labs: 09/17/17 04:30 09/17/17 04:30 PT 12.9 Seconds (9.8-13.1) 09/12/17 05:02 INR 1.2 (0.9-1.2) 09/12/17 05:02 APTT 32.7 Seconds (25.6-37.1) 09/11/17 09:02 Assessment and Plan (1) CHF (congestive heart failure), NYHA class II Status: Acute (2) NSVT (nonsustained ventricular tachycardia) Status: Acute (3) Preop cardiovascular exam Status: Acute (4) Pleural effusion Status: Acute (5) Chronic asthma Status: Chronic (6) Hyperlipidemia Status: Chronic (7) Hypertension Status: Chronic Attending/Attestation - Attestation I have personally seen and examined this patient.: Yes I have fully participated in the care of the patient.: Yes I have reviewed all pertinent clinical information, including history, physical exam and plan: Yes
[2017-09-17] MEDS: Enoxaparin 40 mg Syringe SC SCH (09:01)
[2017-09-17] MEDS: Latanoprost 0.005% Opht SOUTION OU SCH (09:01)
[2017-09-17] MEDS: Metoprolol Succinate 50 mg XL Tab PO SCH (09:02)
[2017-09-17] MEDS: Pantoprazole 40 mg EC Tab PO SCH (09:03)
--- NOTE | 2017-09-17 09:40 | CP.PCM.PN ---
Subjective - Date & Time of Evaluation Date of Evaluation: 09/17/17 Time of Evaluation: 07:40 - Subjective Subjective: Patient seen and examined at bedside with attending-Dr. Short. Laying in bed comfortably in no acute distress. Denies chest pain, SOB, weakness or dizziness. No complaints at this time. Objective - Vital Signs/Intake and Output Vital Signs (last 24 hours): Temp Pulse Resp BP Pulse Ox 97.8 F 60 18 129/49 L 98 09/17/17 08:00 09/17/17 09:03 09/17/17 08:00 09/17/17 09:13 09/17/17 08:00 - Medications Medications: Current Medications Acetaminophen (Tylenol 325mg Tab) 650 mg PO Q6 PRN PRN Reason: Pain, moderate (4-7) Last Admin: 09/16/17 23:55 Dose: 650 mg Acetylcysteine (Acetylcysteine 20%) 2 ml INH RBID [facility] Last Admin: 09/17/17 07:30 Dose: 2 ml Albuterol Sulfate (Albuterol 0.083% Inhal Carmen (2.5 Mg/3 Ml) Ud) 2.5 mg INH RQ4 PRN PRN Reason: Shortness of Breath Albuterol/Ipratropium (Duoneb 3 Mg/0.5 Mg (3 Ml) Ud) 3 ml INH RQID [facility] Last Admin: 09/17/17 07:29 Dose: 3 ml Docusate Sodium (Colace) 200 mg PO DAILY [facility] Last Admin: 09/17/17 09:01 Dose: 200 mg Enoxaparin Sodium (Lovenox) 40 mg SC DAILY [facility] PRN Reason: Protocol Last Admin: 09/17/17 09:01 Dose: 40 mg Furosemide (Lasix) 20 mg PO DAILY [facility] Last Admin: 09/17/17 09:13 Dose: 20 mg Latanoprost (Xalatan Opht) 1 drop OU DAILY [facility] Last Admin: 09/17/17 09:01 Dose: 1 drop Losartan Potassium (Cozaar) 100 mg PO DAILY [facility] Last Admin: 09/17/17 09:03 Dose: 100 mg Memantine (Namenda) 10 mg PO BID [facility] Last Admin: 09/17/17 09:02 Dose: 10 mg Metoprolol Succinate (Toprol Xl) 50 mg PO DAILY [facility] Last Admin: 09/17/17 09:02 Dose: 50 mg Montelukast Sodium (Singulair) 10 mg PO DAILY [facility] Last Admin: 09/16/17 08:39 Dose: 10 mg Nitroglycerin (Nitrostat Sl Tab) 0.4 mg SL Q5M PRN PRN Reason: Pain, moderate (4-7) Last Admin: 09/03/17 16:09 Dose: 0.4 mg Nystatin (Nystop Topical Powder) 1 applic TOP TID [facility] Last Admin: 09/17/17 09:01 Dose: 1 applic Pantoprazole Sodium (Protonix Ec Tab) 40 mg PO DAILY [facility] Last Admin: 09/17/17 09:03 Dose: 40 mg Paroxetine HCl (Paxil) 20 mg PO DAILY [facility] Last Admin: 09/17/17 09:02 Dose: 20 mg Pravastatin Sodium (Pravachol) 20 mg PO HS [facility] Last Admin: 09/16/17 22:04 Dose: 20 mg Spironolactone (Aldactone) 25 mg PO DAILY [facility] Last Admin: 09/17/17 09:02 Dose: 25 mg - Labs Labs: 09/17/17 04:30 09/17/17 04:30 PT 12.9 Seconds (9.8-13.1) 09/12/17 05:02 INR 1.2 (0.9-1.2) 09/12/17 05:02 APTT 32.7 Seconds (25.6-37.1) 09/11/17 09:02 - Constitutional Appears: No Acute Distress - Head Exam Head Exam: ATRAUMATIC, NORMOCEPHALIC - Eye Exam Eye Exam: EOMI - ENT Exam ENT Exam: Mucous Membranes Moist - Neck Exam Neck Exam: Full ROM - Respiratory Exam Respiratory Exam: Decreased Breath Sounds (in RLL), NORMAL BREATHING PATTERN. absent: Rales, Rhonchi - Cardiovascular Exam Cardiovascular Exam: REGULAR RHYTHM, +S1, +S2 - GI/Abdominal Exam GI & Abdominal Exam: Soft (obese), Normal Bowel Sounds - Extremities Exam Extremities Exam: Full ROM. absent: Pedal Edema - Neurological Exam Neurological Exam: Alert, Awake - Psychiatric Exam Psychiatric exam: Normal Affect, Normal Mood - Skin Skin Exam: Dry, Intact, Warm Assessment and Plan - Assessment and Plan (Free Text) Assessment: 86 yr old admitted for recurrent pleural effusion. Patient was awaiting VATS procedure, power of [place] attorney refused to sign consent upon discussion with anesthesia. Pulmonary and cardiology on board. Recommendation remains for VATS with biopsy and pleurodesis. Will re-discuss procedure with POA and obtain consent. 1. Pleural effusion -recurrent, etiology unknown -09/16/17: CXR: small right pleural effusion -Master Deputy [employer] consult appreciated: Dr. Gamboa :will re-evaluate pleural effusion , likely will need VATS with biopsy and pleurodesis. -Cardiothoracic consult appreciated pt will need VATS with lung biopsy and pleurodesis.Surgery cancelled. will be reschedulled due to anesthesia consenting missing -Myocardial perfusion scan: potentially ischemic myocardium involving inferior wall which represent right coronary artery territory. -Coronary catherization: Nonobstructive coronary artery disease as well as spasm of the right coronary artery. Mild nonobstructive disease in the left anterior descending. Normal ejection fraction with elevated filling pressures. -Hand Straightener consult appreciated:Dr. Fernandez: low risk for perioperative cardiac event. pt will need low dose diuretic therapy and afterload reducers for diastolic CHF 2. Acute Diastolic CHF -dx 09/11/17 s/p Cardiac cath procedure showed non-obstructive coronary disease as well as spasm of RCA. Mild non-obstructive LAD. Normal EF with elevated filling pressure -Cardiology consult appreciated: recommend aggressive medical management. 3. Chronic asthma -Chronic, stable 4. HTN -chronic, controlled 5. Dementia -Chronic, stable 6. DVT prophylaxis -Lovenox 40 mg SC QD
--- NOTE | 2017-09-17 12:45 | CP.PCM.PN ---
Subjective - Date & Time of Evaluation Date of Evaluation: 09/17/17 Time of Evaluation: 12:44 - Subjective Subjective: Awaiting consent to surgery from POA. Objective - Vital Signs/Intake and Output Vital Signs (last 24 hours): Temp Pulse Resp BP Pulse Ox 97.8 F 60 18 129/49 L 98 09/17/17 08:00 09/17/17 09:03 09/17/17 08:00 09/17/17 09:13 09/17/17 08:00 - Medications Medications: Current Medications Acetaminophen (Tylenol 325mg Tab) 650 mg PO Q6 PRN PRN Reason: Pain, moderate (4-7) Last Admin: 09/16/17 23:55 Dose: 650 mg Acetylcysteine (Acetylcysteine 20%) 2 ml INH RBID [facility] Last Admin: 09/17/17 07:30 Dose: 2 ml Albuterol Sulfate (Albuterol 0.083% Inhal Carmen (2.5 Mg/3 Ml) Ud) 2.5 mg INH RQ4 PRN PRN Reason: Shortness of Breath Albuterol/Ipratropium (Duoneb 3 Mg/0.5 Mg (3 Ml) Ud) 3 ml INH RQID [facility] Last Admin: 09/17/17 11:28 Dose: 3 ml Docusate Sodium (Colace) 200 mg PO DAILY [facility] Last Admin: 09/17/17 09:01 Dose: 200 mg Enoxaparin Sodium (Lovenox) 40 mg SC DAILY [facility] PRN Reason: Protocol Last Admin: 09/17/17 09:01 Dose: 40 mg Furosemide (Lasix) 20 mg PO DAILY [facility] Last Admin: 09/17/17 09:13 Dose: 20 mg Latanoprost (Xalatan Opht) 1 drop OU DAILY [facility] Last Admin: 09/17/17 09:01 Dose: 1 drop Losartan Potassium (Cozaar) 100 mg PO DAILY [facility] Last Admin: 09/17/17 09:03 Dose: 100 mg Memantine (Namenda) 10 mg PO BID [facility] Last Admin: 09/17/17 09:02 Dose: 10 mg Metoprolol Succinate (Toprol Xl) 50 mg PO DAILY [facility] Last Admin: 09/17/17 09:02 Dose: 50 mg Montelukast Sodium (Singulair) 10 mg PO DAILY [facility] Last Admin: 09/16/17 08:39 Dose: 10 mg Nitroglycerin (Nitrostat Sl Tab) 0.4 mg SL Q5M PRN PRN Reason: Pain, moderate (4-7) Last Admin: 09/03/17 16:09 Dose: 0.4 mg Nystatin (Nystop Topical Powder) 1 applic TOP TID [facility] Last Admin: 09/17/17 09:01 Dose: 1 applic Pantoprazole Sodium (Protonix Ec Tab) 40 mg PO DAILY [facility] Last Admin: 09/17/17 09:03 Dose: 40 mg Paroxetine HCl (Paxil) 20 mg PO DAILY [facility] Last Admin: 09/17/17 09:02 Dose: 20 mg Pravastatin Sodium (Pravachol) 20 mg PO HS [facility] Last Admin: 09/16/17 22:04 Dose: 20 mg Spironolactone (Aldactone) 25 mg PO DAILY [facility] Last Admin: 09/17/17 09:02 Dose: 25 mg - Labs Labs: 09/17/17 04:30 09/17/17 04:30 PT 12.9 Seconds (9.8-13.1) 09/12/17 05:02 INR 1.2 (0.9-1.2) 09/12/17 05:02 APTT 32.7 Seconds (25.6-37.1) 09/11/17 09:02
[2017-09-17] MEDS: Pravastatin Sodium 20 MG TAB PO SCH (21:48)
[2017-09-18 05:58] LABS: HEMOGLOBIN 9.9 g/dL (12.0-16.0); MEAN CELL VOLUME 78.3 fl (81.0-99.0); MEAN CORPUSCULAR HEMOGLOBIN 25.1 pg (27.0-31.0); MEAN CORPUSCULAR HGB CONC 32.1 g/dL (33.0-37.0); RBC 3.94 Mil/uL (3.80-5.20); WHITE BLOOD COUNT 6.5 K/uL (4.8-10.8)
[2017-09-18 06:26] LABS: ALBUMIN 3.1 g/dL (3.5-5.0); BLOOD UREA NITROGEN 30 mg/dl (7-17); CALCIUM 8.8 mg/dL (8.4-10.2); GFR AFRICAN-AMERICAN > 60; GFR NON-AFRICAN AMERICAN 53
[2017-09-18 06:27] LABS: ALT/SGPT 36 U/L (9-52); AST/SGOT 21 U/L (14-36)
--- NOTE | 2017-09-18 07:31 | CP.PCM.PN ---
<EdwinGeena - Last Filed: 09/18/17 08:36> Subjective - Date & Time of Evaluation Date of Evaluation: 09/18/17 Time of Evaluation: 07:30 - Subjective Subjective: PGY2 progress note for cardiology, Dr. Fernandez Pt seen and examined at bedside. No acute events overnight. Pt is resting comfortably. Denies having any CP, SOB, abd pain, N/V/D/C. 12 point ROS negative except for the above mentioned. Objective - Vital Signs/Intake and Output Vital Signs (last 24 hours): Temp Pulse Resp BP Pulse Ox 98.8 F 63 18 122/67 100 09/18/17 05:00 09/18/17 05:00 09/18/17 05:00 09/18/17 05:00 09/18/17 05:00 - Medications Medications: Current Medications Acetaminophen (Tylenol 325mg Tab) 650 mg PO Q6 PRN PRN Reason: Pain, moderate (4-7) Last Admin: 09/16/17 23:55 Dose: 650 mg Acetylcysteine (Acetylcysteine 20%) 2 ml INH [facility]ID [facility] Last Admin: 09/17/17 19:33 Dose: 2 ml Albuterol Sulfate (Albuterol 0.083% Inhal Carmen (2.5 Mg/3 Ml) Ud) 2.5 mg INH RQ4 PRN PRN Reason: Shortness of Breath Albuterol/Ipratropium (Duoneb 3 Mg/0.5 Mg (3 Ml) Ud) 3 ml INH RQID [facility] Last Admin: 09/17/17 19:33 Dose: 3 ml Docusate Sodium (Colace) 200 mg PO DAILY [facility] Last Admin: 09/17/17 09:01 Dose: 200 mg Enoxaparin Sodium (Lovenox) 40 mg SC DAILY [facility] PRN Reason: Protocol Last Admin: 09/17/17 09:01 Dose: 40 mg Furosemide (Lasix) 20 mg PO DAILY [facility] Last Admin: 09/17/17 09:13 Dose: 20 mg Latanoprost (Xalatan Opht) 1 drop OU DAILY [facility] Last Admin: 09/17/17 09:01 Dose: 1 drop Losartan Potassium (Cozaar) 100 mg PO DAILY [facility] Last Admin: 09/17/17 09:03 Dose: 100 mg Memantine (Namenda) 10 mg PO BID [facility] Last Admin: 09/17/17 19:20 Dose: 10 mg Metoprolol Succinate (Toprol Xl) 50 mg PO DAILY [facility] Last Admin: 09/17/17 09:02 Dose: 50 mg Montelukast Sodium (Singulair) 10 mg PO DAILY [facility] Last Admin: 09/17/17 09:20 Dose: 10 mg Nitroglycerin (Nitrostat Sl Tab) 0.4 mg SL Q5M PRN PRN Reason: Pain, moderate (4-7) Last Admin: 09/03/17 16:09 Dose: 0.4 mg Pantoprazole Sodium (Protonix Ec Tab) 40 mg PO DAILY [facility] Last Admin: 09/17/17 09:03 Dose: 40 mg Paroxetine HCl (Paxil) 20 mg PO DAILY [facility] Last Admin: 09/17/17 09:02 Dose: 20 mg Pravastatin Sodium (Pravachol) 20 mg PO HS [facility] Last Admin: 09/17/17 21:48 Dose: 20 mg Spironolactone (Aldactone) 25 mg PO DAILY [facility] Last Admin: 09/17/17 09:02 Dose: 25 mg - Labs Labs: 09/18/17 05:45 09/18/17 05:45 PT 12.9 Seconds (9.8-13.1) 09/12/17 05:02 INR 1.2 (0.9-1.2) 09/12/17 05:02 APTT 32.7 Seconds (25.6-37.1) 09/11/17 09:02 - Constitutional Appears: Non-toxic, No Acute Distress - Head Exam Head Exam: ATRAUMATIC - ENT Exam ENT Exam: Mucous Membranes Moist - Respiratory Exam Respiratory Exam: Decreased Breath Sounds (right lung base). absent: Accessory Muscle Use, Rales, Rhonchi, Wheezes, Respiratory Distress - Cardiovascular Exam Cardiovascular Exam: REGULAR RHYTHM, +S1, +S2. absent: Gallop, Rubs, Murmur - GI/Abdominal Exam GI & Abdominal Exam: Soft, Normal Bowel Sounds. absent: Distended, Firm, Guarding, Rigid, Tenderness, Organomegaly - Neurological Exam Neurological Exam: Alert, Awake, Oriented x3 - Psychiatric Exam Psychiatric exam: Normal Affect, Normal Mood - Skin Skin Exam: Dry, Intact, Normal Color, Warm Assessment and Plan - Assessment and Plan (Free Text) Assessment: 86 year old female with past medical history of HTN, HLD, and right pleural effusion is being seen of cardiac clearance for right VATS procedure. Cardiac cath procedure showed non-obstructive coronary disease as well as spasm of RCA. Mild non-obstructive LAD. Normal EF with elevated filling pressure. Recommend aggressive medical management. Pre-op medical clearance for VATS procedure POA refused consent for surgery Pleural effusion VATS currently cancelled. Clinically, pt's breathing is improving Diastolic CHF Normal EF with increased filling pressures ProBNP has improved considerably. Will continue Lasixs 20 mg every other day as pt has episodes of hypotension Continue spironolactone 25 mg po qd HTN continue to monitor Non-sustained V. tach Normal rhythm throughout the night Currently on Toprol XL 50 mg PO qd Case discussed with attending, Dr. Fernandez. Patient is cleared for discharge from cardiology point. <Renzo Fernandez - Last Filed: 09/18/17 09:05> Objective - Vital Signs/Intake and Output Vital Signs (last 24 hours): Temp Pulse Resp BP Pulse Ox 98.5 F 63 18 113/59 L 99 09/18/17 07:48 09/18/17 07:48 09/18/17 07:48 09/18/17 07:48 09/18/17 07:48 - Medications Medications: Current Medications Acetaminophen (Tylenol 325mg Tab) 650 mg PO Q6 PRN PRN Reason: Pain, moderate (4-7) Last Admin: 09/16/17 23:55 Dose: 650 mg Acetylcysteine (Acetylcysteine 20%) 2 ml INH [facility]ID [facility] Last Admin: 09/18/17 08:04 Dose: 2 ml Albuterol Sulfate (Albuterol 0.083% Inhal Carmen (2.5 Mg/3 Ml) Ud) 2.5 mg INH RQ4 PRN PRN Reason: Shortness of Breath Albuterol/Ipratropium (Duoneb 3 Mg/0.5 Mg (3 Ml) Ud) 3 ml INH RQID [facility] Last Admin: 09/18/17 08:05 Dose: 3 ml Docusate Sodium (Colace) 200 mg PO DAILY [facility] Last Admin: 09/17/17 09:01 Dose: 200 mg Enoxaparin Sodium (Lovenox) 40 mg SC DAILY [facility] PRN Reason: Protocol Last Admin: 09/17/17 09:01 Dose: 40 mg Furosemide (Lasix) 20 mg PO QOTHERDAY [facility] Latanoprost (Xalatan Opht) 1 drop OU DAILY [facility] Last Admin: 09/17/17 09:01 Dose: 1 drop Losartan Potassium (Cozaar) 100 mg PO DAILY [facility] Last Admin: 09/17/17 09:03 Dose: 100 mg Memantine (Namenda) 10 mg PO BID [facility] Last Admin: 09/17/17 19:20 Dose: 10 mg Metoprolol Succinate (Toprol Xl) 50 mg PO DAILY [facility] Last Admin: 09/17/17 09:02 Dose: 50 mg Montelukast Sodium (Singulair) 10 mg PO DAILY [facility] Last Admin: 09/17/17 09:20 Dose: 10 mg Nitroglycerin (Nitrostat Sl Tab) 0.4 mg SL Q5M PRN PRN Reason: Pain, moderate (4-7) Last Admin: 09/03/17 16:09 Dose: 0.4 mg Pantoprazole Sodium (Protonix Ec Tab) 40 mg PO DAILY [facility] Last Admin: 09/17/17 09:03 Dose: 40 mg Paroxetine HCl (Paxil) 20 mg PO DAILY [facility] Last Admin: 09/17/17 09:02 Dose: 20 mg Pravastatin Sodium (Pravachol) 20 mg PO HS [facility] Last Admin: 09/17/17 21:48 Dose: 20 mg Spironolactone (Aldactone) 25 mg PO DAILY [facility] Last Admin: 09/17/17 09:02 Dose: 25 mg - Labs Labs: 09/18/17 05:45 09/18/17 05:45 PT 12.9 Seconds (9.8-13.1) 09/12/17 05:02 INR 1.2 (0.9-1.2) 09/12/17 05:02 APTT 32.7 Seconds (25.6-37.1) 09/11/17 09:02 Assessment and Plan (1) CHF (congestive heart failure), NYHA class II Status: Acute (2) NSVT (nonsustained ventricular tachycardia) Status: Acute (3) Preop cardiovascular exam Status: Acute (4) Pleural effusion Status: Acute (5) Chronic asthma Status: Chronic (6) Hyperlipidemia Status: Chronic (7) Hypertension Status: Chronic Attending/Attestation - Attestation I have personally seen and examined this patient.: Yes I have fully participated in the care of the patient.: Yes I have reviewed all pertinent clinical information, including history, physical exam and plan: Yes
[2017-09-18] MEDS: Acetylcysteine 20% Inhal Soln (4ml) INH SCH ×2 (08:04→19:12)
[2017-09-18] MEDS: Albuterol-Ipratrop 3 mg / 0.5 (3 ml) UD INH SCH ×4 (08:05→19:12)
--- NOTE | 2017-09-18 09:12 | CP.PCM.PN ---
Subjective - Date & Time of Evaluation Date of Evaluation: 09/18/17 Time of Evaluation: 08:50 - Subjective Subjective: CT surgery progress note for Dr. Morenita Smith, PGY-1 Pt S & E at bedside. No complaints, comfortable. Objective - Vital Signs/Intake and Output Vital Signs (last 24 hours): Temp Pulse Resp BP Pulse Ox 98.5 F 63 18 113/59 L 99 09/18/17 07:48 09/18/17 07:48 09/18/17 07:48 09/18/17 07:48 09/18/17 07:48 - Medications Medications: Current Medications Acetaminophen (Tylenol 325mg Tab) 650 mg PO Q6 PRN PRN Reason: Pain, moderate (4-7) Last Admin: 09/16/17 23:55 Dose: 650 mg Acetylcysteine (Acetylcysteine 20%) 2 ml INH RBID [facility] Last Admin: 09/18/17 08:04 Dose: 2 ml Albuterol Sulfate (Albuterol 0.083% Inhal Carmen (2.5 Mg/3 Ml) Ud) 2.5 mg INH RQ4 PRN PRN Reason: Shortness of Breath Albuterol/Ipratropium (Duoneb 3 Mg/0.5 Mg (3 Ml) Ud) 3 ml INH RQID [facility] Last Admin: 09/18/17 08:05 Dose: 3 ml Docusate Sodium (Colace) 200 mg PO DAILY [facility] Last Admin: 09/17/17 09:01 Dose: 200 mg Enoxaparin Sodium (Lovenox) 40 mg SC DAILY [facility] PRN Reason: Protocol Last Admin: 09/17/17 09:01 Dose: 40 mg Furosemide (Lasix) 20 mg PO QOTHERDAY [facility] Latanoprost (Xalatan Opht) 1 drop OU DAILY [facility] Last Admin: 09/17/17 09:01 Dose: 1 drop Losartan Potassium (Cozaar) 100 mg PO DAILY [facility] Last Admin: 09/17/17 09:03 Dose: 100 mg Memantine (Namenda) 10 mg PO BID [facility] Last Admin: 09/17/17 19:20 Dose: 10 mg Metoprolol Succinate (Toprol Xl) 50 mg PO DAILY [facility] Last Admin: 09/17/17 09:02 Dose: 50 mg Montelukast Sodium (Singulair) 10 mg PO DAILY [facility] Last Admin: 09/17/17 09:20 Dose: 10 mg Nitroglycerin (Nitrostat Sl Tab) 0.4 mg SL Q5M PRN PRN Reason: Pain, moderate (4-7) Last Admin: 09/03/17 16:09 Dose: 0.4 mg Pantoprazole Sodium (Protonix Ec Tab) 40 mg PO DAILY [facility] Last Admin: 09/17/17 09:03 Dose: 40 mg Paroxetine HCl (Paxil) 20 mg PO DAILY [facility] Last Admin: 09/17/17 09:02 Dose: 20 mg Pravastatin Sodium (Pravachol) 20 mg PO HS [facility] Last Admin: 09/17/17 21:48 Dose: 20 mg Spironolactone (Aldactone) 25 mg PO DAILY [facility] Last Admin: 09/17/17 09:02 Dose: 25 mg - Labs Labs: 09/18/17 05:45 09/18/17 05:45 PT 12.9 Seconds (9.8-13.1) 09/12/17 05:02 INR 1.2 (0.9-1.2) 09/12/17 05:02 APTT 32.7 Seconds (25.6-37.1) 09/11/17 09:02 - Constitutional Appears: Non-toxic, No Acute Distress - Head Exam Head Exam: ATRAUMATIC, NORMAL INSPECTION - Eye Exam Eye Exam: EOMI, Normal appearance - ENT Exam ENT Exam: Mucous Membranes Moist, Normal Exam - Neck Exam Neck Exam: Full ROM, Normal Inspection - Respiratory Exam Respiratory Exam: Clear to Ausculation Bilateral, NORMAL BREATHING PATTERN. absent: Rales, Rhonchi, Wheezes Additional comments: Currently receiving breathing treatment - Cardiovascular Exam Cardiovascular Exam: REGULAR RHYTHM, +S1, +S2 - GI/Abdominal Exam GI & Abdominal Exam: Soft, Normal Bowel Sounds. absent: Tenderness - Extremities Exam Extremities Exam: Normal Inspection - Neurological Exam Neurological Exam: Alert, Awake, CN II-XII Intact. absent: Oriented x3 ( demented) - Psychiatric Exam Psychiatric exam: Normal Affect, Normal Mood - Skin Skin Exam: Dry, Intact, Normal Color, Warm Assessment and Plan - Assessment and Plan (Free Text) Assessment: 86F w/recurrent R pleural effusion s/p cardiac cath, stable Plan: Awaiting POA consent for anesthesia Low risk for VATS as per cardiology Further mgmt as per primary and production support consultant teams DW attending Sarah, PGY-1
[2017-09-18] MEDS: Metoprolol Succinate 50 mg XL Tab PO SCH (10:02)
[2017-09-18] MEDS: Enoxaparin 40 mg Syringe SC SCH (10:02)
[2017-09-18] MEDS: Pantoprazole 40 mg EC Tab PO SCH (10:04)
[2017-09-18] MEDS: Latanoprost 0.005% Opht SOUTION OU SCH (10:05)
--- NOTE | 2017-09-18 12:33 | CP.PCM.PN ---
Subjective - Date & Time of Evaluation Date of Evaluation: 09/18/17 Time of Evaluation: 07:40 - Subjective Subjective: Patient seen and examined at bedside with attending- Dr. Gaviria. Telemetry reviewed. Denies SOB, weakness or dizziness. Objective - Vital Signs/Intake and Output Vital Signs (last 24 hours): Temp Pulse Resp BP Pulse Ox 98.3 F 69 18 110/54 L 98 09/18/17 12:03 09/18/17 12:03 09/18/17 12:03 09/18/17 12:03 09/18/17 12:03 - Medications Medications: Current Medications Acetaminophen (Tylenol 325mg Tab) 650 mg PO Q6 PRN PRN Reason: Pain, moderate (4-7) Last Admin: 09/16/17 23:55 Dose: 650 mg Acetylcysteine (Acetylcysteine 20%) 2 ml INH RBID [facility] Last Admin: 09/18/17 08:04 Dose: 2 ml Albuterol Sulfate (Albuterol 0.083% Inhal Carmen (2.5 Mg/3 Ml) Ud) 2.5 mg INH RQ4 PRN PRN Reason: Shortness of Breath Albuterol/Ipratropium (Duoneb 3 Mg/0.5 Mg (3 Ml) Ud) 3 ml INH RQID [facility] Last Admin: 09/18/17 11:29 Dose: 3 ml Docusate Sodium (Colace) 200 mg PO DAILY [facility] Last Admin: 09/18/17 10:02 Dose: 200 mg Enoxaparin Sodium (Lovenox) 40 mg SC DAILY [facility] PRN Reason: Protocol Last Admin: 09/18/17 10:02 Dose: 40 mg Furosemide (Lasix) 20 mg PO QOTHERDAY [facility] Last Admin: 09/18/17 10:06 Dose: 20 mg Latanoprost (Xalatan Opht) 1 drop OU DAILY [facility] Last Admin: 09/18/17 10:05 Dose: 1 drop Losartan Potassium (Cozaar) 100 mg PO DAILY [facility] Last Admin: 09/17/17 09:03 Dose: 100 mg Memantine (Namenda) 10 mg PO BID [facility] Last Admin: 09/18/17 10:05 Dose: 10 mg Metoprolol Succinate (Toprol Xl) 50 mg PO DAILY [facility] Last Admin: 09/18/17 10:02 Dose: 50 mg Montelukast Sodium (Singulair) 10 mg PO DAILY [facility] Last Admin: 09/18/17 10:05 Dose: 10 mg Nitroglycerin (Nitrostat Sl Tab) 0.4 mg SL Q5M PRN PRN Reason: Pain, moderate (4-7) Last Admin: 09/03/17 16:09 Dose: 0.4 mg Pantoprazole Sodium (Protonix Ec Tab) 40 mg PO DAILY [facility] Last Admin: 09/18/17 10:04 Dose: 40 mg Paroxetine HCl (Paxil) 20 mg PO DAILY [facility] Last Admin: 09/18/17 10:04 Dose: 20 mg Pravastatin Sodium (Pravachol) 20 mg PO HS [facility] Last Admin: 09/17/17 21:48 Dose: 20 mg Spironolactone (Aldactone) 25 mg PO DAILY [facility] Last Admin: 09/18/17 10:04 Dose: 25 mg - Labs Labs: 09/18/17 05:45 09/18/17 05:45 PT 12.9 Seconds (9.8-13.1) 09/12/17 05:02 INR 1.2 (0.9-1.2) 09/12/17 05:02 APTT 32.7 Seconds (25.6-37.1) 09/11/17 09:02 - Constitutional Appears: No Acute Distress - Head Exam Head Exam: ATRAUMATIC, NORMOCEPHALIC - Eye Exam Eye Exam: EOMI - ENT Exam ENT Exam: Mucous Membranes Moist - Respiratory Exam Respiratory Exam: NORMAL BREATHING PATTERN - Cardiovascular Exam Cardiovascular Exam: REGULAR RHYTHM, +S1, +S2 - GI/Abdominal Exam GI & Abdominal Exam: Soft (obese), Normal Bowel Sounds - Extremities Exam Extremities Exam: Full ROM. absent: Pedal Edema - Neurological Exam Neurological Exam: Alert, Awake, CN II-XII Intact - Psychiatric Exam Psychiatric exam: Normal Affect, Normal Mood - Skin Skin Exam: Dry, Normal Color, Warm Assessment and Plan - Assessment and Plan (Free Text) Assessment: 86 yr old admitted for recurrent pleural effusion. Patient was awaiting VATS procedure, power of contract attorney refused to sign consent upon discussion with anesthesia. Pulmonary and cardiology on board. Recommendation remains for VATS with biopsy and pleurodesis. Repeated attempts have been made to discuss procedure with POA and obtain consent, POA has requested some time to research/ discuss this procedure with outside attendings/specialists. 1. Pleural effusion -recurrent, etiology unknown -09/16/17: CXR: small right pleural effusion -[place] consult appreciated: Dr. Gamboa :will re-evaluate pleural effusion , likely will need VATS with biopsy and pleurodesis. -Cardiothoracic consult appreciated pt will need VATS with lung biopsy and pleurodesis.Surgery cancelled. will be rescheduled once POA gives consent -Myocardial perfusion scan: potentially ischemic myocardium involving inferior wall which represent right coronary artery territory. -Coronary catherization: Nonobstructive coronary artery disease as well as spasm of the right coronary artery. Mild nonobstructive disease in the left anterior descending. Normal ejection fraction with elevated filling pressures. -[facility] consult appreciated:Dr. Fernandez: low risk for perioperative cardiac event: continue with Lasix 20mg PO every other day, spirinolactone 25 mg PO QD, Metoprolol 50 mg PO QD 2. Acute Diastolic CHF -dx 09/11/17 s/p Cardiac cath procedure showed non-obstructive coronary disease as well as spasm of RCA. Mild non-obstructive LAD. Normal EF with elevated filling pressure -Cardiology consult appreciated: recommend aggressive medical management. 3. Chronic asthma -Chronic, stable 4. HTN -chronic, controlled 5. Dementia -Chronic, stable 6. DVT prophylaxis -Lovenox 40 mg SC QD
[2017-09-18] MEDS: Pravastatin Sodium 20 MG TAB PO SCH (21:08)
[2017-09-19 00:10] VITALS: RESP 18
[2017-09-19 05:16] LABS: HEMOGLOBIN 9.7 g/dL (12.0-16.0); MEAN CELL VOLUME 78.2 fl (81.0-99.0); MEAN CORPUSCULAR HEMOGLOBIN 25.5 pg (27.0-31.0); MEAN CORPUSCULAR HGB CONC 32.6 g/dL (33.0-37.0); RBC 3.81 Mil/uL (3.80-5.20); RED CELL DISTRIBUTION WIDTH 15.2 % (11.5-14.5); WHITE BLOOD COUNT 5.6 K/uL (4.8-10.8)
[2017-09-19 05:24] LABS: ALT/SGPT 31 U/L (9-52); AST/SGOT 19 U/L (14-36); BLOOD UREA NITROGEN 28 mg/dl (7-17); CALCIUM 8.9 mg/dL (8.4-10.2); GFR AFRICAN-AMERICAN > 60; GFR NON-AFRICAN AMERICAN 60
--- NOTE | 2017-09-19 07:18 | CP.PCM.PN ---
<Geena Pineda - Last Filed: 09/19/17 08:47> Subjective - Date & Time of Evaluation Date of Evaluation: 09/19/17 Time of Evaluation: 07:15 - Subjective Subjective: PGY2 progress note for cardiology, Dr. Fernandez Pt seen and examined at bedside. No acute events overnight. Pt resting comfortably. Denies having any CP, SOB, abd pain, N/V/D/C. 12 point ROS negative except for above mentioned. Objective - Vital Signs/Intake and Output Vital Signs (last 24 hours): Temp Pulse Resp BP Pulse Ox 98.5 F 62 18 109/61 100 09/19/17 05:00 09/19/17 05:00 09/19/17 05:00 09/19/17 05:00 09/19/17 05:00 - Medications Medications: Current Medications Acetaminophen (Tylenol 325mg Tab) 650 mg PO Q6 PRN PRN Reason: Pain, moderate (4-7) Last Admin: 09/16/17 23:55 Dose: 650 mg Acetylcysteine (Acetylcysteine 20%) 2 ml INH RBID [facility] Last Admin: 09/18/17 19:12 Dose: 2 ml Albuterol Sulfate (Albuterol 0.083% Inhal Carmen (2.5 Mg/3 Ml) Ud) 2.5 mg INH RQ4 PRN PRN Reason: Shortness of Breath Albuterol/Ipratropium (Duoneb 3 Mg/0.5 Mg (3 Ml) Ud) 3 ml INH RQID [facility] Last Admin: 09/18/17 19:12 Dose: 3 ml Docusate Sodium (Colace) 200 mg PO DAILY [facility] Last Admin: 09/18/17 10:02 Dose: 200 mg Enoxaparin Sodium (Lovenox) 40 mg SC DAILY [facility] PRN Reason: Protocol Last Admin: 09/18/17 10:02 Dose: 40 mg Furosemide (Lasix) 20 mg PO QOTHERDAY [facility] Last Admin: 09/18/17 10:06 Dose: 20 mg Latanoprost (Xalatan Opht) 1 drop OU DAILY [facility] Last Admin: 09/18/17 10:05 Dose: 1 drop Losartan Potassium (Cozaar) 100 mg PO DAILY [facility] Last Admin: 09/18/17 10:33 Dose: 100 mg Memantine (Namenda) 10 mg PO BID [facility] Last Admin: 09/18/17 17:33 Dose: 10 mg Metoprolol Succinate (Toprol Xl) 50 mg PO DAILY [facility] Last Admin: 09/18/17 10:02 Dose: 50 mg Montelukast Sodium (Singulair) 10 mg PO DAILY [facility] Last Admin: 09/18/17 10:05 Dose: 10 mg Pantoprazole Sodium (Protonix Ec Tab) 40 mg PO DAILY [facility] Last Admin: 09/18/17 10:04 Dose: 40 mg Paroxetine HCl (Paxil) 20 mg PO DAILY [facility] Last Admin: 09/18/17 10:04 Dose: 20 mg Pravastatin Sodium (Pravachol) 20 mg PO HS [facility] Last Admin: 09/18/17 21:08 Dose: 20 mg Spironolactone (Aldactone) 25 mg PO DAILY [facility] Last Admin: 09/18/17 10:04 Dose: 25 mg - Labs Labs: 09/19/17 04:20 09/19/17 04:20 PT 12.9 Seconds (9.8-13.1) 09/12/17 05:02 INR 1.2 (0.9-1.2) 09/12/17 05:02 APTT 32.7 Seconds (25.6-37.1) 09/11/17 09:02 - Constitutional Appears: Non-toxic, No Acute Distress - Head Exam Head Exam: ATRAUMATIC - ENT Exam ENT Exam: Mucous Membranes Moist - Respiratory Exam Respiratory Exam: Clear to Ausculation Bilateral. absent: Accessory Muscle Use , Rales, Rhonchi, Wheezes, Respiratory Distress - Cardiovascular Exam Cardiovascular Exam: REGULAR RHYTHM, +S1, +S2. absent: Gallop, Rubs, Murmur - GI/Abdominal Exam GI & Abdominal Exam: Soft, Normal Bowel Sounds. absent: Distended, Firm, Guarding, Rigid, Tenderness, Organomegaly - Extremities Exam Extremities Exam: absent: Pedal Edema, Tenderness - Neurological Exam Neurological Exam: Alert, Awake, Oriented x3 - Psychiatric Exam Psychiatric exam: Normal Affect, Normal Mood - Skin Skin Exam: Dry, Intact, Normal Color, Warm Assessment and Plan - Assessment and Plan (Free Text) Assessment: 86 year old female with past medical history of HTN, HLD, and right pleural effusion is being seen of cardiac clearance for right VATS procedure. Cardiac cath procedure showed non-obstructive coronary disease as well as spasm of RCA. Mild non-obstructive LAD. Normal EF with elevated filling pressure. Recommend aggressive medical management. Pre-op medical clearance for VATS procedure POA refused consent for surgery Pleural effusion VATS currently cancelled. Clinically, pt's breathing is improving Will repeat CXR Diastolic CHF Normal EF with increased filling pressures noted on echo ProBNP improved Lasixs 20 mg po every other day Continue spironolactone 25 mg po qd HTN continue to monitor Non-sustained V. tach Resolved Currently on Toprol XL 50 mg PO qd Case discussed with attending, Dr. Fernandez. Patient is cleared for discharge from cardiology point. Will sign off, please feel free to reconsult if necessary. <Renzo Fernandez - Last Filed: 09/22/17 14:57> Objective - Vital Signs/Intake and Output Vital Signs (last 24 hours): Temp Pulse Resp BP Pulse Ox 98 F 58 L 18 110/55 L 97 09/19/17 12:10 09/19/17 12:10 09/19/17 12:10 09/19/17 12:10 09/19/17 12:10 - Labs Labs: 09/19/17 04:20 09/19/17 04:20 PT 12.9 Seconds (9.8-13.1) 09/12/17 05:02 INR 1.2 (0.9-1.2) 09/12/17 05:02 APTT 32.7 Seconds (25.6-37.1) 09/11/17 09:02 Assessment and Plan (1) CHF (congestive heart failure), NYHA class II Status: Acute (2) NSVT (nonsustained ventricular tachycardia) Status: Acute (3) Preop cardiovascular exam Status: Acute (4) Pleural effusion Status: Chronic (5) Chronic asthma Status: Chronic (6) Hyperlipidemia Status: Chronic (7) Hypertension Status: Chronic Attending/Attestation - Attestation I have personally seen and examined this patient.: Yes I have fully participated in the care of the patient.: Yes I have reviewed all pertinent clinical information, including history, physical exam and plan: Yes
--- NOTE | 2017-09-19 07:50 | CP.PCM.PN ---
Subjective - Date & Time of Evaluation Date of Evaluation: 09/19/17 Time of Evaluation: 07:55 - Subjective Subjective: Patient seen and examined at bedside with attending-Dr. Gaviria. Awake, alert, cooperative. Reports moderate pain in left knee with physical therapy. Denies chest pain, weakness, SOB or dizziness. Objective - Vital Signs/Intake and Output Vital Signs (last 24 hours): Temp Pulse Resp BP Pulse Ox 98.5 F 62 18 109/61 100 09/19/17 05:00 09/19/17 05:00 09/19/17 05:00 09/19/17 05:00 09/19/17 05:00 - Medications Medications: Current Medications Acetaminophen (Tylenol 325mg Tab) 650 mg PO Q6 PRN PRN Reason: Pain, moderate (4-7) Last Admin: 09/16/17 23:55 Dose: 650 mg Acetylcysteine (Acetylcysteine 20%) 2 ml INH RBID [facility] Last Admin: 09/18/17 19:12 Dose: 2 ml Albuterol Sulfate (Albuterol 0.083% Inhal Carmen (2.5 Mg/3 Ml) Ud) 2.5 mg INH RQ4 PRN PRN Reason: Shortness of Breath Albuterol/Ipratropium (Duoneb 3 Mg/0.5 Mg (3 Ml) Ud) 3 ml INH RQID [facility] Last Admin: 09/18/17 19:12 Dose: 3 ml Docusate Sodium (Colace) 200 mg PO DAILY [facility] Last Admin: 09/18/17 10:02 Dose: 200 mg Enoxaparin Sodium (Lovenox) 40 mg SC DAILY [facility] PRN Reason: Protocol Last Admin: 09/18/17 10:02 Dose: 40 mg Furosemide (Lasix) 20 mg PO QOTHERDAY [facility] Last Admin: 09/18/17 10:06 Dose: 20 mg Latanoprost (Xalatan Opht) 1 drop OU DAILY [facility] Last Admin: 09/18/17 10:05 Dose: 1 drop Losartan Potassium (Cozaar) 100 mg PO DAILY [facility] Last Admin: 09/18/17 10:33 Dose: 100 mg Memantine (Namenda) 10 mg PO BID [facility] Last Admin: 09/18/17 17:33 Dose: 10 mg Metoprolol Succinate (Toprol Xl) 50 mg PO DAILY [facility] Last Admin: 09/18/17 10:02 Dose: 50 mg Montelukast Sodium (Singulair) 10 mg PO DAILY [facility] Last Admin: 09/18/17 10:05 Dose: 10 mg Pantoprazole Sodium (Protonix Ec Tab) 40 mg PO DAILY [facility] Last Admin: 09/18/17 10:04 Dose: 40 mg Paroxetine HCl (Paxil) 20 mg PO DAILY [facility] Last Admin: 09/18/17 10:04 Dose: 20 mg Pravastatin Sodium (Pravachol) 20 mg PO HS [facility] Last Admin: 09/18/17 21:08 Dose: 20 mg Spironolactone (Aldactone) 12.5 mg PO DAILY [facility] - Labs Labs: 09/19/17 04:20 09/19/17 04:20 PT 12.9 Seconds (9.8-13.1) 09/12/17 05:02 INR 1.2 (0.9-1.2) 09/12/17 05:02 APTT 32.7 Seconds (25.6-37.1) 09/11/17 09:02 - Constitutional Appears: No Acute Distress - Head Exam Head Exam: ATRAUMATIC, NORMOCEPHALIC - Eye Exam Eye Exam: EOMI - ENT Exam ENT Exam: Mucous Membranes Moist - Neck Exam Neck Exam: Full ROM - Respiratory Exam Respiratory Exam: NORMAL BREATHING PATTERN - Cardiovascular Exam Cardiovascular Exam: REGULAR RHYTHM, +S1, +S2 - GI/Abdominal Exam GI & Abdominal Exam: Soft (obese), Normal Bowel Sounds - Extremities Exam Extremities Exam: Full ROM. absent: Pedal Edema - Neurological Exam Neurological Exam: Alert, Awake, CN II-XII Intact - Psychiatric Exam Psychiatric exam: Normal Affect, Normal Mood - Skin Skin Exam: Dry, Normal Color, Warm Assessment and Plan - Assessment and Plan (Free Text) Assessment: 86 yr old admitted for recurrent pleural effusion. Patient was awaiting VATS procedure, power of commercial real estate attorney refused to sign consent upon discussion with anesthesia. Pulmonary and cardiology on board. Recommendation remains for VATS with biopsy and pleurodesis. Repeated attempts have been made to discuss procedure with POA and obtain consent, POA has not given consent. cardiothoracic surgery has signed off on the case, patient [facility] be discharged [facility], follow up with primary care as outpatient and consider VATS at discretion of her POA. 1. Pleural effusion -recurrent, etiology unknown -09/16/17: CXR: small right pleural effusion -Customer Data Technician consult appreciated: Dr. Gamboa :will re-evaluate pleural effusion , likely will need VATS with biopsy and pleurodesis. -Cardiothoracic consult appreciated pt will need VATS with lung biopsy and pleurodesis.Surgery cancelled. Patient may obtain as outpatient at discretion of her POA. -Myocardial perfusion scan: potentially ischemic myocardium involving inferior wall which represent right coronary artery territory. -Coronary catherization: Nonobstructive coronary artery disease as well as spasm of the right coronary artery. Mild nonobstructive disease in the left anterior descending. Normal ejection fraction with elevated filling pressures. -Finished Cigar Maker consult appreciated:Dr. Fernandez: low risk for perioperative cardiac event: continue with Lasix 20mg PO every other day, spirinolactone 25 mg PO QD, Metoprolol 50 mg PO QD 2. Acute Diastolic CHF -dx 09/11/17 s/p Cardiac cath procedure showed non-obstructive coronary disease as well as spasm of RCA. Mild non-obstructive LAD. Normal EF with elevated filling pressure -Cardiology consult appreciated: recommend aggressive medical management. 3. Chronic asthma -Chronic, stable 4. HTN -chronic, controlled 5. Dementia -Chronic, stable 6. DVT prophylaxis -Lovenox 40 mg SC QD
[2017-09-19] MEDS: Albuterol-Ipratrop 3 mg / 0.5 (3 ml) UD INH SCH ×2 (08:10→12:09)
[2017-09-19] MEDS: Acetylcysteine 20% Inhal Soln (4ml) INH SCH (08:11)
--- NOTE | 2017-09-19 08:43 | CP.PCM.PN ---
Subjective - Date & Time of Evaluation Date of Evaluation: 09/19/17 Time of Evaluation: 08:43 - Subjective Subjective: Cardiothoracic Surgery Progress Note for Dr. Clinton This patient was seen and examined this AM at bedside. No acute events reported , she is laying comfortable in bed, she denies CP or SOB. Objective - Vital Signs/Intake and Output Vital Signs (last 24 hours): Temp Pulse Resp BP Pulse Ox 98.1 F 59 L 18 115/52 L 100 09/19/17 08:03 09/19/17 08:03 09/19/17 08:03 09/19/17 08:03 09/19/17 08:03 - Medications Medications: Current Medications Acetaminophen (Tylenol 325mg Tab) 650 mg PO Q6 PRN PRN Reason: Pain, moderate (4-7) Last Admin: 09/16/17 23:55 Dose: 650 mg Acetylcysteine (Acetylcysteine 20%) 2 ml INH RBID [facility] Last Admin: 09/19/17 08:11 Dose: 2 ml Albuterol Sulfate (Albuterol 0.083% Inhal Carmen (2.5 Mg/3 Ml) Ud) 2.5 mg INH RQ4 PRN PRN Reason: Shortness of Breath Albuterol/Ipratropium (Duoneb 3 Mg/0.5 Mg (3 Ml) Ud) 3 ml INH RQID [facility] Last Admin: 09/19/17 08:10 Dose: 3 ml Docusate Sodium (Colace) 200 mg PO DAILY [facility] Last Admin: 09/18/17 10:02 Dose: 200 mg Enoxaparin Sodium (Lovenox) 40 mg SC DAILY [facility] PRN Reason: Protocol Last Admin: 09/18/17 10:02 Dose: 40 mg Furosemide (Lasix) 20 mg PO QOTHERDAY [facility] Last Admin: 09/18/17 10:06 Dose: 20 mg Latanoprost (Xalatan Opht) 1 drop OU DAILY [facility] Last Admin: 09/18/17 10:05 Dose: 1 drop Losartan Potassium (Cozaar) 100 mg PO DAILY [facility] Last Admin: 09/18/17 10:33 Dose: 100 mg Memantine (Namenda) 10 mg PO BID [facility] Last Admin: 09/18/17 17:33 Dose: 10 mg Metoprolol Succinate (Toprol Xl) 50 mg PO DAILY [facility] Last Admin: 09/18/17 10:02 Dose: 50 mg Montelukast Sodium (Singulair) 10 mg PO DAILY [facility] Last Admin: 09/18/17 10:05 Dose: 10 mg Pantoprazole Sodium (Protonix Ec Tab) 40 mg PO DAILY [facility] Last Admin: 09/18/17 10:04 Dose: 40 mg Paroxetine HCl (Paxil) 20 mg PO DAILY [facility] Last Admin: 09/18/17 10:04 Dose: 20 mg Pravastatin Sodium (Pravachol) 20 mg PO HS [facility] Last Admin: 09/18/17 21:08 Dose: 20 mg Spironolactone (Aldactone) 12.5 mg PO DAILY [facility] - Labs Labs: 09/19/17 04:20 09/19/17 04:20 PT 12.9 Seconds (9.8-13.1) 09/12/17 05:02 INR 1.2 (0.9-1.2) 09/12/17 05:02 APTT 32.7 Seconds (25.6-37.1) 09/11/17 09:02 - Constitutional Appears: Non-toxic, No Acute Distress - Head Exam Head Exam: ATRAUMATIC, NORMAL INSPECTION - Eye Exam Eye Exam: EOMI, Normal appearance - ENT Exam ENT Exam: Mucous Membranes Moist, Normal Exam - Neck Exam Neck Exam: Full ROM, Normal Inspection - Respiratory Exam Respiratory Exam: Clear to Ausculation Bilateral, NORMAL BREATHING PATTERN. absent: Rales, Rhonchi, Wheezes Additional comments: Currently receiving breathing treatment - Cardiovascular Exam Cardiovascular Exam: REGULAR RHYTHM, +S1, +S2 - GI/Abdominal Exam GI & Abdominal Exam: Soft, Normal Bowel Sounds. absent: Tenderness - Extremities Exam Extremities Exam: Normal Inspection - Neurological Exam Neurological Exam: Alert, Awake, CN II-XII Intact. absent: Oriented x3 ( demented) - Psychiatric Exam Psychiatric exam: Normal Affect, Normal Mood - Skin Skin Exam: Dry, Intact, Normal Color, Warm Assessment and Plan - Assessment and Plan (Free Text) Assessment: 86F w/recurrent R pleural effusion s/p cardiac cath, stable Plan: Patient not consenting to anesthesia, no acute surgical processes. The patient is clear for discharge from a surgical prospective, recommend outpatient followup with primary care and schedule elective VATS at her own discretion. Signing off from the surgical prospective, please reconcile service or page surgical forceps fabricator if patient requires re-evaluation. Discussed with Dr. Mary Beth Terry PGY2
[2017-09-19] MEDS: Pantoprazole 40 mg EC Tab PO SCH (08:59)
[2017-09-19] MEDS: Enoxaparin 40 mg Syringe SC SCH (09:00)
[2017-09-19] MEDS: Metoprolol Succinate 50 mg XL Tab PO SCH (09:01)
[2017-09-19] MEDS: Latanoprost 0.005% Opht SOUTION OU SCH (09:01)
[2017-09-19] MEDS ORDERED: Lidocaine 5% Patch TD SCH (11:15)
--- NOTE | 2017-09-19 11:22 | RAD ---
PROCEDURE: CHEST RADIOGRAPH, 1 VIEW HISTORY: pleural effusion COMPARISON: Portable chest 09/16/2017. FINDINGS: LUNGS: Right-sided volume loss is somewhat improved with residual atelectasis or infiltrate remaining at the right lung base. PLEURA: Mild right pleural effusion remains with fibrosis or trace pleural effusion blunting the left couple of costophrenic sulcus. CARDIOVASCULAR: Prominent cardiac silhouette again evident. No pulmonary vascular derangement. OSSEOUS STRUCTURES: No significant abnormalities. VISUALIZED UPPER ABDOMEN: Normal. OTHER FINDINGS: None. IMPRESSION: Diminishing right-sided volume loss with persistent right basilar atelectasis or infiltrate remaining as well as mild right pleural effusion. Trace pleural effusion or fibrosis again noted at the lateral base. No definite left-sided infiltrate. Prominent cardiac silhouette stable.
[2017-09-19 12:11] VITALS: BP 110/55; PULSE 58; TEMP 98; O2SAT 97
--- NOTE | 2017-09-19 13:19 | CP.PCM.PN ---
Subjective - Date & Time of Evaluation Date of Evaluation: 09/19/17 Time of Evaluation: 13:15 - Subjective Subjective: Seated in bedside chair. Apears comfortable at rest. Vital signs have remained stable. Today's chest x-ray shows stable right effusion. Dullness to percussion is noted in both lung bases posteriorly. Breath sounds are very much diminished in both bases. Few rhonchi and medium rales are present in the right base. Tentative discharge to transitional care today. Would benefit from physical therapy. Follow chest x-ray on present medical regimen. Objective - Vital Signs/Intake and Output Vital Signs (last 24 hours): Temp Pulse Resp BP Pulse Ox 98 F 58 L 18 110/55 L 97 09/19/17 12:10 09/19/17 12:10 09/19/17 12:10 09/19/17 12:10 09/19/17 12:10 - Medications Medications: Current Medications Acetaminophen (Tylenol 325mg Tab) 650 mg PO Q6 PRN PRN Reason: Pain, moderate (4-7) Last Admin: 09/16/17 23:55 Dose: 650 mg Acetylcysteine (Acetylcysteine 20%) 2 ml INH RBID [facility] Last Admin: 09/19/17 08:11 Dose: 2 ml Albuterol Sulfate (Albuterol 0.083% Inhal Carmen (2.5 Mg/3 Ml) Ud) 2.5 mg INH RQ4 PRN PRN Reason: Shortness of Breath Albuterol/Ipratropium (Duoneb 3 Mg/0.5 Mg (3 Ml) Ud) 3 ml INH RQID [facility] Last Admin: 09/19/17 12:09 Dose: 3 ml Docusate Sodium (Colace) 200 mg PO DAILY [facility] Last Admin: 09/19/17 08:59 Dose: 200 mg Enoxaparin Sodium (Lovenox) 40 mg SC DAILY [facility] PRN Reason: Protocol Last Admin: 09/19/17 09:00 Dose: 40 mg Furosemide (Lasix) 20 mg PO QOTHERDAY [facility] Last Admin: 09/18/17 10:06 Dose: 20 mg Latanoprost (Xalatan Opht) 1 drop OU DAILY [facility] Last Admin: 09/19/17 09:01 Dose: 1 drop Lidocaine (Lidoderm) 1 ea TD DAILY [facility] Losartan Potassium (Cozaar) 100 mg PO DAILY [facility] Last Admin: 09/19/17 08:59 Dose: 100 mg Memantine (Namenda) 10 mg PO BID [facility] Last Admin: 09/19/17 08:58 Dose: 10 mg Metoprolol Succinate (Toprol Xl) 50 mg PO DAILY [facility] Last Admin: 09/19/17 09:01 Dose: 50 mg Montelukast Sodium (Singulair) 10 mg PO DAILY [facility] Last Admin: 09/19/17 08:59 Dose: 10 mg Pantoprazole Sodium (Protonix Ec Tab) 40 mg PO DAILY [facility] Last Admin: 09/19/17 08:59 Dose: 40 mg Paroxetine HCl (Paxil) 20 mg PO DAILY [facility] Last Admin: 09/19/17 09:00 Dose: 20 mg Pravastatin Sodium (Pravachol) 20 mg PO HS [facility] Last Admin: 09/18/17 21:08 Dose: 20 mg Spironolactone (Aldactone) 12.5 mg PO DAILY [facility] - Labs Labs: 09/19/17 04:20 09/19/17 04:20 PT 12.9 Seconds (9.8-13.1) 09/12/17 05:02 INR 1.2 (0.9-1.2) 09/12/17 05:02 APTT 32.7 Seconds (25.6-37.1) 09/11/17 09:02 Assessment and Plan (1) Pleural effusion Status: Acute (2) Chronic asthma Status: Chronic (3) Dementia Status: Chronic (4) Myocardial ischemia Status: Acute
--- NOTE | 2017-09-19 13:43 | CP.PCM.DIS ---
Provider - Provider Date of Admission: 08/19/17 22:58 Attending physician: Ariel Gaviria MD Primary care physician: Dr. Hameed Consults: Dr. Gamboa-pulmonology; Dr. Mejia- IR; Dr. Clinton- cardiothoracic surgery; Dr. Fernandez -cardiology Time Spent in preparation of Discharge (in minutes): 30 Diagnosis - Discharge Diagnosis (1) Diastolic CHF Status: Acute Priority: Low (2) Pleural effusion Status: Chronic Priority: Low Comment: recurrent Hospital Course - Lab Results Lab Results: Micro Results 08/21/17 14:59 Other: Please Indicate Mycobacterial Culture - Preliminary 08/28/17 16:07 Other: Please Indicate Mycobacterial Culture - Preliminary 08/21/17 14:59 Pleural Fluid Gram Stain - Final 08/21/17 14:59 Pleural Fluid Anaerobic Culture - Final No growth. 08/21/17 14:59 Pleural Fluid Body Fluid Culture - Final No growth. 08/21/17 14:59 Pleural Fluid Fungal Culture - Preliminary NO FUNGUS GROWTH IN 3 WEEKS. 09/11/17 22:53 Urine,Clean Catch Urine Culture - Final No Growth (<1,000 CFU/ML) 08/28/17 16:07 Bronchial Washings Fungal Culture - Final Renetta Albicans 08/28/17 16:07 Bronchial Washings Bronchial Culture - Final NORMAL SAPROPHYTIC ROSY 08/25/17 20:54 Urine,Clean Catch Urine Culture - Final No Growth (<1,000 CFU/ML) 08/22/17 19:03 Urine Urine Culture - Final Escherichia Coli 08/20/17 08:33 Naris MRSA Culture (Admit) - Final MRSA NOT DETECTED 08/20/17 06:31 Nose MRSA Culture (Admit) - Final MRSA NOT DETECTED Most Recent Lab Values WBC 5.6 K/uL (4.8-10.8) 09/19/17 04:20 RBC 3.81 Mil/uL (3.80-5.20) 09/19/17 04:20 Hgb 9.7 g/dL (12.0-16.0) L 09/19/17 04:20 Hct 29.8 % (34.0-47.0) L 09/19/17 04:20 MCV 78.2 fl (81.0-99.0) L 09/19/17 04:20 MCH 25.5 pg (27.0-31.0) L 09/19/17 04:20 MCHC 32.6 g/dL (33.0-37.0) L 09/19/17 04:20 RDW 15.2 % (11.5-14.5) H 09/19/17 04:20 Plt Count 211 K/uL (130-400) 09/19/17 04:20 MPV 8.4 fl (7.2-11.7) 09/11/17 09:02 Neut % (Auto) 75.3 % (50.0-75.0) H 09/11/17 09:02 Lymph % (Auto) 16.8 % (20.0-40.0) L 09/11/17 09:02 [place] % (Auto) 5.2 % (0.0-10.0) 09/11/17 09:02 Eos % (Auto) 2.2 % (0.0-4.0) 09/11/17 09:02 Baso % (Auto) 0.5 % (0.0-2.0) 09/11/17 09:02 Neut # 5.7 K/uL (1.8-7.0) 09/11/17 09:02 Lymph # 1.3 K/uL (1.0-4.3) 09/11/17 09:02 [place] # 0.4 K/uL (0.0-0.8) 09/11/17 09:02 Eos # 0.2 K/uL (0.0-0.7) 09/11/17 09:02 Baso # 0.0 K/uL (0.0-0.2) 09/11/17 09:02 PT 12.9 Seconds (9.8-13.1) 09/12/17 05:02 INR 1.2 (0.9-1.2) 09/12/17 05:02 APTT 32.7 Seconds (25.6-37.1) 09/11/17 09:02 pCO2 59 mm/Hg (35-45) H 09/11/17 11:48 pO2 117 mm/Hg (80-100) H 09/11/17 11:48 HCO3 36.4 mmol/L (21-28) H 09/11/17 11:48 ABG pH 7.45 (7.35-7.45) 09/11/17 11:48 ABG Total CO2 42.8 mmol/L (22-28) H 09/11/17 11:48 ABG O2 Saturation 99.2 % (95-98) H 09/11/17 11:48 ABG O2 Content 14.9 ML/dL (15-23) L 09/11/17 11:48 ABG Base Excess 14.7 mmol/L (-2.0-3.0) H 09/11/17 11:48 ABG Hemoglobin 10.8 g/dL (11.7-17.4) L 09/11/17 11:48 ABG Carboxyhemoglobin 1.1 % (0.5-1.5) 09/11/17 11:48 POC ABG HHb (Measured) 0.8 % (0.0-5.0) 09/11/17 11:48 ABG Methemoglobin 1.3 % (0.0-3.0) 09/11/17 11:48 ABG O2 Capacity 15.0 mL/dL (16-24) L 09/11/17 11:48 Charbel Test Yes 09/11/17 11:48 A-a O2 Difference 9.0 mm/Hg 09/11/17 11:48 Hgb O2 Saturation 96.8 % (95.0-98.0) 09/11/17 11:48 FiO2 28.0 % 09/11/17 11:48 Sodium 140 mmol/l (132-148) 09/19/17 04:20 Potassium 4.1 MMOL/L (3.6-5.0) 09/19/17 04:20 Chloride 97 mmol/L (98-107) L 09/19/17 04:20 Carbon Dioxide 36 mmol/L (22-30) H 09/19/17 04:20 Anion Gap 11 (10-20) 09/19/17 04:20 BUN 28 mg/dl (7-17) H 09/19/17 04:20 Creatinine 0.9 mg/dl (0.7-1.2) 09/19/17 04:20 Est GFR ( Amer) > 60 09/19/17 04:20 Est GFR (Non-Af Amer) 60 09/19/17 04:20 Random Glucose 94 mg/dL (65-105) 09/19/17 04:20 Calcium 8.9 mg/dL (8.4-10.2) 09/19/17 04:20 Magnesium 1.9 MG/DL (1.6-2.3) 09/12/17 05:02 Total Bilirubin 0.3 mg/dl (0.2-1.3) 09/19/17 04:20 AST 19 U/L (14-36) 09/19/17 04:20 ALT 31 U/L (9-52) 09/19/17 04:20 Alkaline Phosphatase 61 U/L (38-126) 09/19/17 04:20 Lactate Dehydrogenase 352 U/L (313-618) 08/22/17 09:30 Troponin I < 0.0120 ng/mL (0.00-0.120) 09/03/17 16:40 NT-Pro-B Natriuret Pep 758 pg/ml (0-900) 09/17/17 12:47 Total Protein 6.1 G/DL (6.3-8.2) L 09/19/17 04:20 Albumin 3.0 g/dL (3.5-5.0) L 09/19/17 04:20 Globulin 3.1 gm/dL (2.2-3.9) 09/19/17 04:20 Albumin/Globulin Ratio 1.0 (1.0-2.1) 09/19/17 04:20 Procalcitonin < 0.05 NG/ML (0.19-0.49) L 08/21/17 12:28 Urine Color Blue (YELLOW) 08/19/17 23:00 Urine Clarity Cloudy (Clear) 08/19/17 23:00 Urine pH 5.0 (5.0-8.0) 08/19/17 23:00 Ur Specific [place] 1.016 (1.003-1.030) 08/19/17 23:00 Urine Protein Negative mg/dL (NEGATIVE) 08/19/17 23:00 Urine Glucose (UA) Neg mg/dL (Normal) 08/19/17 23:00 Urine Ketones Negative mg/dL (NEGATIVE) 08/19/17 23:00 Urine Blood Negative (NEGATIVE) 08/19/17 23:00 Urine Nitrate Negative (NEGATIVE) 08/19/17 23:00 Urine Bilirubin Negative (NEGATIVE) 08/19/17 23:00 Urine Urobilinogen 0.2-1.0 mg/dL (0.2-1.0) 08/19/17 23:00 Ur Leukocyte Esterase Trace [place]/uL (Negative) 08/19/17 23:00 Urine RBC (Auto) 4 /hpf (0-3) H 08/19/17 23:00 Urine Microscopic WBC 1 /hpf (0-5) 08/19/17 23:00 Ur Squamous Epith Cells < 1 /hpf (0-5) 08/19/17 23:00 Urine Bacteria Rare (<OCC) 08/19/17 23:00 Ur Random Sodium 131 meq/L 09/12/17 23:55 Ur Random Potassium 31.6 mmol/L 09/12/17 23:55 Fluid Source Pleural/thoracentesi 08/21/17 14:59 Fluid Appearance Sl cloudy (CLEAR) 08/21/17 14:59 Fluid WBC 287.0 /mm3 (0.0-300.0) 08/21/17 14:59 Fluid RBC 1544.0 /mm3 (0.0-0.0) H 08/21/17 14:59 Fluid Tot Cell Count 100 (0-0) H 08/21/17 14:59 Fluid Neutrophils 7.0 % (0-0) H 08/21/17 14:59 Fluid Lymphocytes 84.0 % (0-0) H 08/21/17 14:59 Fld Monocyte/Macrophag 9 % (0-0) H 08/21/17 14:59 Fluid Glucose 99 mg/dL (NONE ESTABLISHED) 08/21/17 14:59 Fluid Total Protein 3.1 g/dL (NONE ESTABLISHED) 08/21/17 14:59 Fluid Albumin 1.5 g/dL 08/21/17 14:59 Fluid LDH 134 IU (NONE ESTABLISHED) 08/21/17 14:59 Fluid Amylase < 30 mg/dL (NONE ESTABLISHED) 08/21/17 14:59 Fluid Triglycerides 12 mg/dL (NONE ESTABLISHED) 08/21/17 14:59 Fluid Comment Yellow 08/21/17 14:59 Blood Type O POSITIVE 09/11/17 13:13 Antibody Screen Negative 09/11/17 13:13 Crossmatch See Detail 09/11/17 13:13 BBK History Checked Patient has bt 09/11/17 13:13 - Hospital Course Hospital Course: 86 yr old admitted for recurrent pleural effusion. Patient was awaiting VATS procedure, power of mergers and acquisitions attorney refused to sign consent upon discussion with anesthesia. Pulmonary and cardiology on board. Recommendation remains for VATS with biopsy and pleurodesis. Repeated attempts were made to discuss procedure with POA and obtain consent, POA did not give consent. Cardiothoracic surgery has signed off on the case, patient may be discharged to TCU fro rehabilitation and follow up with primary care as outpatient and consider VATS at discretion of her POA. - Date & Time of H&P Date of H&P: 08/20/17 Time of H&P: 09:21 Discharge Exam - Head Exam Head Exam: ATRAUMATIC, NORMOCEPHALIC - Eye Exam Eye Exam: EOMI, PERRL - ENT Exam ENT Exam: Mucous Membranes Moist - Neck Exam Neck exam: Full Rom - Respiratory Exam Respiratory Exam: NORMAL BREATHING PATTERN - Cardiovascular Exam Cardiovascular Exam: REGULAR RHYTHM, +S1, +S2 - GI/Abdominal Exam GI & Abdominal Exam: Normal Bowel Sounds, Soft (obese). absent: Tenderness - Extremities Exam Extremities exam: full ROM (no pedal edema, no calf tenderness) - Neurological Exam Neurological exam: Alert, CN II-XII Intact - Psychiatric Exam Psychiatric exam: Normal Affect, Normal Mood - Skin Skin Exam: Dry, Normal Color, Warm Discharge Plan - Follow Up Plan Condition: STABLE Disposition: REHAB FACILITY/REHAB UNIT Additional Instructions: pt. cleared for discharge to TCU today by , , and Dr.Faraz palm. PT/OT plan of care and recommendations disussed with patient's POA chantel Patel Referrals: Ariel Gaviria MD [Staff Provider] - Tahir Gamboa MD [Staff Provider] - Clinical Quality Measures - CQM - Heart Failure Ejection Fraction: 40 % or Greater Left Ventricular Function to be assessed after discharge: No MARVIN Inhibitor Prescribed: No Contraindication/Reason for not providing: on ARB Beta-Chance Prescribed: Metoprolol Succinate Angiotensin II Receptor Chance Prescribed: Yes AnticoagulationTherapy for Atrial Fibrillation/Atrialflutter: No Contraindication/Reason for not providing: no A-fib Aldosterone Antagonist Prescribed: Yes Hydralazine Nitrate Prescribed: No Contraindication/Reason for not providing: not required Implantable Cardioverter Defibrillator Therapy: No Contraindication/Reason for not providing: not required Cardiac Resynchronization Therapy Prescribed: No Contraindication/Reason for not providing: not required [facility] be [facility] - Date & Time of Discharge Summary Date of Discharge Summary: 09/19/17 Time of Discharge Summary: 15:15
== END 2017-09-19 15:00 | DRG 287 ==
LOC: H.ER 21:06 → H.ERHOLD 22:58 → H.ICU/CCU 08-20 11:47 → H.TEL 08-20 22:56
PROVIDERS: ADMIT Family Medicine; ATTEND Family Medicine
PROC: 3E0234Z Introduction of Serum, Toxoid and Vaccine into Muscle, Percutaneous Approach (ICD-10-PCS; 2017-08-20)
PROC: 0W9930Z Drainage of Right Pleural Cavity with Drainage Device, Percutaneous Approach (ICD-10-PCS; 2017-08-21)
PROC: 0BB68ZX Excision of Right Lower Lobe Bronchus, Via Natural or Artificial Opening Endoscopic, Diagnostic (ICD-10-PCS; principal; 2017-08-28 07:45)
PROC: 4A023N7 Measurement of Cardiac Sampling and Pressure, Left Heart, Percutaneous Approach (ICD-10-PCS; 2017-09-10)
PROC: B206YZZ Plain Radiography of Right and Left Heart using Other Contrast (ICD-10-PCS; 2017-09-10)
DX: I11.0 Hypertensive heart disease with heart failure (principal); I47.2 Ventricular tachycardia; I50.31 Acute diastolic (congestive) heart failure; J91.8 Pleural effusion in other conditions classified elsewhere; N39.0 Urinary tract infection, site not specified; J98.11 Atelectasis; I25.111 Atherosclerotic heart disease of native coronary artery with angina pectoris with documented spasm; B96.20 Unspecified Escherichia coli [E. coli] as the cause of diseases classified elsewhere; J45.40 Moderate persistent asthma, uncomplicated; E11.9 Type 2 diabetes mellitus without complications; D50.9 Iron deficiency anemia, unspecified; E78.5 Hyperlipidemia, unspecified; F03.90 Unspecified dementia, unspecified severity, without behavioral disturbance, psychotic disturbance, mood disturbance, and anxiety; J44.9 Chronic obstructive pulmonary disease, unspecified; Z16.12 Extended spectrum beta lactamase (ESBL) resistance; K21.9 Gastro-esophageal reflux disease without esophagitis; M81.0 Age-related osteoporosis without current pathological fracture; M19.90 Unspecified osteoarthritis, unspecified site; Z96.642 Presence of left artificial hip joint; Z23 Encounter for immunization; Z87.01 Personal history of pneumonia (recurrent)

== ENCOUNTER 2017-09-19 13:57 | Inpatient (IN) | payer OTHER, MEDICAID ==
[2017-09-19 15:22] VITALS: BMI 31.4
[2017-09-19] MEDS ORDERED: Albuterol 0.083% Inhal Sol (2.5 mg/3 mL) UD INH PRN (15:58)
[2017-09-19] MEDS: Acetylcysteine 20% Inhal Soln (4ml) INH SCH (21:00)
[2017-09-19] MEDS: Albuterol-Ipratrop 3 mg / 0.5 (3 ml) UD INH SCH (21:00)
[2017-09-19] MEDS: Pravastatin Sodium 20 MG TAB PO SCH (21:11)
[2017-09-19] MEDS ORDERED: Latanoprost 0.005% Opht SOUTION OU SCH (22:00)
[2017-09-20] MEDS: Albuterol-Ipratrop 3 mg / 0.5 (3 ml) UD INH SCH ×4 (08:39→19:30)
[2017-09-20] MEDS: Acetylcysteine 20% Inhal Soln (4ml) INH SCH ×2 (08:39→19:30)
[2017-09-20] MEDS ORDERED: Patient's Own Med (Bimatoprost [Lumigan] 1 DROP) BOTHEYES SCH (09:00)
[2017-09-20] MEDS: Metoprolol Succinate 50 mg XL Tab PO SCH (09:08)
[2017-09-20] MEDS: Enoxaparin 40 mg Syringe SC SCH (09:08)
[2017-09-20] MEDS: Pantoprazole 40 mg EC Tab PO SCH (09:09)
[2017-09-20] MEDS: Lidocaine 5% Patch TD SCH (09:11)
[2017-09-20] MEDS: Latanoprost 0.005% Opht SOUTION OU SCH (09:11)
[2017-09-20] MEDS ORDERED: Alum-Mag Hydrox-Simethicone Susp (30 mL) PO PRN (09:45)
[2017-09-20] MEDS: Fluticasone-Salmeterol 250-50mcg Diskus IH SCH (16:25)
--- NOTE | 2017-09-20 18:06 | CP.PCM.HP ---
History of Present Illness - History of Present Illness History of Present Illness: This is an 86 y/o female admitted for further PT/ rehab after a prolonged hospitalization for chronic recurrent pleural effusion. She first presented with pneumonia and right sided pleural effusion. A plan was to have a thoracentesis performed but consent was not provided hence she was treated conservatively. She responded well and was able to do PT hence was transferred to TCU. Medical Hx chronic pleural effusion HTN Demetis Hyperlipidemia Present on Admission - Present on Admission Any Indicators Present on Admission: No History of DVT/PE: No History of Uncontrolled Diabetes: No Urinary Catheter: No Decubitus Ulcer Present: No Review of Systems - Respiratory Respiratory: Cough, Dyspnea Past Patient History - Past Medical History & Family History Past Medical History?: Yes - Past Social History Smoking Status: Never Smoked - CARDIAC Hx Hypercholesterolemia: Yes Hx Hypertension: Yes - PULMONARY Hx Asthma: Yes Hx Bronchitis: Yes Hx Chronic Obstructive Pulmonary Disease (COPD): Yes Hx Pneumonia: Yes - NEUROLOGICAL Hx Dementia: Yes - HEENT Hx HEENT Problems: No - RENAL Hx Chronic Kidney Disease: No - ENDOCRINE/METABOLIC Hx Endocrine Disorders: No - HEMATOLOGICAL/ONCOLOGICAL Hx AIDS: No Hx Anemia: Yes Hx Human Immunodeficiency Virus (HIV): No - INTEGUMENTARY Hx Dermatological Problems: No - MUSCULOSKELETAL/RHEUMATOLOGICAL Hx Arthritis: Yes Hx Falls: No - GASTROINTESTINAL Hx Diverticulitis: Yes - GENITOURINARY/GYNECOLOGICAL Hx Genitourinary Disorders: No - PSYCHIATRIC Hx Depression: Yes Hx Substance Use: No - SURGICAL HISTORY Hx Surgeries: Yes Hx Hysterectomy: Yes Hx Orthopedic Surgery: Yes Other/Comment: Kidney Surgery, Left Hip Replacement, left knee surgery - ANESTHESIA Hx Anesthesia: Yes Hx Anesthesia Reactions: No Hx Malignant Hyperthermia: No Meds Home Medications: Home Medication List Medication Instructions Recorded Confirmed Type Acetaminophen [Tylenol 325mg tab] 650 mg PO Q6 PRN #30 tab 09/30/17 Rx Acetylcysteine 20% 2 ml INH RBID #1 vial 09/30/17 Rx Albuterol 0.083% [Albuterol 0.083% 2.5 mg INH RQ4 PRN #1 vial 09/30/17 Rx Inhal Carmen (2.5 mg/3 ml) UD] Bimatoprost [Lumigan] 1 drop BOTHEYES DAILY #1 bottle 09/30/17 Rx Docusate [Colace] 200 mg PO DAILY #60 cap 09/30/17 Rx Fluticasone/Salmeterol [Advair 1 puff PO DAILY #1 blst.w.dev 09/30/17 Rx 250-50 Diskus] Furosemide [Lasix] 20 mg PO QOTHERDAY #30 tab 09/30/17 Rx Latanoprost 0.005% Opht [Xalatan 1 drop OU DAILY #1 bottle 09/30/17 Rx Opht] Losartan [Cozaar] 100 mg PO DAILY #30 tab 09/30/17 Rx Memantine [Namenda] 10 mg PO BID #60 tab 09/30/17 Rx Metoprolol Succinate [Toprol XL] 50 mg PO DAILY #30 tab 09/30/17 Rx Montelukast Sodium [Singulair] 10 mg PO DAILY #30 tablet 09/30/17 Rx Pantoprazole [Protonix EC Tab] 40 mg PO DAILY #30 ect 09/30/17 Rx Paroxetine HCl [Paxil] 20 mg PO DAILY #30 tablet 09/30/17 Rx Pravastatin Sodium [Pravachol] 20 mg PO HS #30 tablet 09/30/17 Rx Spironolactone [Aldactone] 12.5 mg PO DAILY #30 tab 09/30/17 Rx Allergies/Adverse Reactions: Allergies Allergy/AdvReac Type Severity Reaction Status Date / Time No Known Allergies Allergy Verified 09/19/17 15:22 Physical Exam - Head Exam Head Exam: NORMAL INSPECTION - Eye Exam Eye Exam: Normal appearance - ENT Exam ENT Exam: Mucous Membranes Moist - Respiratory Exam Respiratory Exam: Decreased Breath Sounds - Cardiovascular Exam Cardiovascular Exam: REGULAR RHYTHM - GI/Abdominal Exam GI & Abdominal Exam: Normal Bowel Sounds - Neurological Exam Neurological exam: Alert, CN II-XII Intact, Oriented x3 Results - Vital Signs Recent Vital Signs: Last Vital Signs Temp 98.2 F 09/20/17 15:39 Pulse 61 09/20/17 15:39 Resp 20 09/20/17 15:39 BP 107/71 09/20/17 15:39 Pulse Ox 99 09/20/17 15:39 Assessment & Plan (1) Physical deconditioning Status: Acute Priority: Low (2) Asthma Status: Acute (3) CHF (congestive heart failure), NYHA class II Status: Acute (4) Pleural effusion Status: Resolved Priority: Low - Assessment and Plan (Free Text) Plan: Con tmeds diuretic monitor CXR follow up with Dr Gamboa [facility].
[2017-09-20] MEDS: Pravastatin Sodium 20 MG TAB PO SCH (21:08)
[2017-09-21] MEDS: Fluticasone-Salmeterol 250-50mcg Diskus IH SCH (08:30)
[2017-09-21] MEDS: Metoprolol Succinate 50 mg XL Tab PO SCH (08:31)
[2017-09-21] MEDS: Pantoprazole 40 mg EC Tab PO SCH (08:31)
[2017-09-21] MEDS: Lidocaine 5% Patch TD SCH (08:35)
[2017-09-21] MEDS: Latanoprost 0.005% Opht SOUTION OU SCH (08:36)
[2017-09-21] MEDS: Enoxaparin 40 mg Syringe SC SCH (08:37)
[2017-09-21] MEDS: Acetylcysteine 20% Inhal Soln (4ml) INH SCH ×2 (08:45→19:49)
[2017-09-21] MEDS: Albuterol-Ipratrop 3 mg / 0.5 (3 ml) UD INH SCH ×4 (08:46→19:50)
--- NOTE | 2017-09-21 12:08 | CP.PCM.PN ---
Subjective - Date & Time of Evaluation Date of Evaluation: 09/21/17 Time of Evaluation: 12:08 - Subjective Subjective: Patient remains stable Has some cough and wheezing but looks very comfortable on a chair Has no chest pain or SOB. Objective - Vital Signs/Intake and Output Vital Signs (last 24 hours): Temp Pulse Resp BP Pulse Ox 98.1 F 62 18 129/89 99 09/21/17 07:54 09/21/17 08:32 09/21/17 07:54 09/21/17 08:33 09/21/17 07:54 - Medications Medications: Current Medications Acetaminophen (Tylenol 325mg Tab) 650 mg PO Q6 PRN PRN Reason: Pain, moderate (4-7) Acetylcysteine (Acetylcysteine 20%) 2 ml INH RBID ON [facility] Last Admin: 09/21/17 08:45 Dose: 2 ml Al Hydrox/Mg Hydrox/Simethicone (Maalox Plus 30 Ml) 30 ml PO Q6 PRN PRN Reason: Indigestion / Heartburn Albuterol Sulfate (Albuterol 0.083% Inhal Carmen (2.5 Mg/3 Ml) Ud) 2.5 mg INH RQ4 PRN PRN Reason: Shortness of Breath Last Admin: 09/19/17 23:59 Dose: 2.5 mg Albuterol/Ipratropium (Duoneb 3 Mg/0.5 Mg (3 Ml) Ud) 3 ml INH RQID [facility] Last Admin: 09/21/17 12:00 Dose: 3 ml Docusate Sodium (Colace) 200 mg PO DAILY [facility] Last Admin: 09/21/17 08:31 Dose: 200 mg Enoxaparin Sodium (Lovenox) 40 mg SC DAILY [facility] PRN Reason: Protocol Last Admin: 09/21/17 08:37 Dose: 40 mg Furosemide (Lasix) 20 mg PO QOTHERDAY [facility] Last Admin: 09/21/17 08:33 Dose: 20 mg Latanoprost (Xalatan Opht) 1 drop OU DAILY [facility] Last Admin: 09/21/17 08:36 Dose: 1 drop Lidocaine (Lidoderm) 1 ea TD DAILY [facility] Last Admin: 09/21/17 08:35 Dose: 1 ea Losartan Potassium (Cozaar) 100 mg PO DAILY [facility] Last Admin: 09/21/17 08:32 Dose: 100 mg Memantine (Namenda) 10 mg PO BID [facility] Last Admin: 09/21/17 08:35 Dose: 10 mg Metoprolol Succinate (Toprol Xl) 50 mg PO DAILY [facility] Last Admin: 09/21/17 08:31 Dose: 50 mg Montelukast Sodium (Singulair) 10 mg PO DAILY [facility] Last Admin: 09/21/17 08:31 Dose: 10 mg Pantoprazole Sodium (Protonix Ec Tab) 40 mg PO DAILY [facility] Last Admin: 09/21/17 08:31 Dose: 40 mg Paroxetine HCl (Paxil) 20 mg PO DAILY [facility] Last Admin: 09/21/17 08:32 Dose: 20 mg Pravastatin Sodium (Pravachol) 20 mg PO HS [facility] Last Admin: 09/20/17 21:08 Dose: 20 mg Fluticasone/Salmeterol (Advair Diskus 250/50) 1 puff IH DAILY [facility] Last Admin: 09/21/17 08:30 Dose: 1 unit Spironolactone (Aldactone) 12.5 mg PO DAILY [facility] Last Admin: 09/21/17 08:31 Dose: 12.5 mg - Head Exam Head Exam: NORMAL INSPECTION - Eye Exam Eye Exam: Normal appearance - ENT Exam ENT Exam: Mucous Membranes Moist - Respiratory Exam Respiratory Exam: Decreased Breath Sounds, Rales - Cardiovascular Exam Cardiovascular Exam: REGULAR RHYTHM - GI/Abdominal Exam GI & Abdominal Exam: Normal Bowel Sounds - Neurological Exam Neurological Exam: Awake, CN II-XII Intact Assessment and Plan (1) Physical deconditioning Status: Acute (2) CHF (congestive heart failure), NYHA class II Status: Acute (3) COPD (chronic obstructive pulmonary disease) Status: Chronic (4) Hypertension Status: Chronic (5) Osteoarthritis Status: Chronic (6) Pleural effusion Status: Resolved - Assessment and Plan (Free Text) Plan: Con tmeds Con ttx Cont diuretic PT check CXR
[2017-09-21 15:43] VITALS: RESP 20
[2017-09-21] MEDS: Pravastatin Sodium 20 MG TAB PO SCH (21:34)
[2017-09-22] MEDS: Albuterol-Ipratrop 3 mg / 0.5 (3 ml) UD INH SCH ×4 (07:15→19:16)
[2017-09-22] MEDS: Acetylcysteine 20% Inhal Soln (4ml) INH SCH (07:15)
[2017-09-22] MEDS: Fluticasone-Salmeterol 250-50mcg Diskus IH SCH (08:41)
[2017-09-22] MEDS: Latanoprost 0.005% Opht SOUTION OU SCH (08:41)
[2017-09-22] MEDS: Enoxaparin 40 mg Syringe SC SCH (08:42)
[2017-09-22] MEDS: Pantoprazole 40 mg EC Tab PO SCH (08:42)
[2017-09-22] MEDS: Metoprolol Succinate 50 mg XL Tab PO SCH (08:43)
[2017-09-22] MEDS: Lidocaine 5% Patch TD SCH (08:47)
--- NOTE | 2017-09-22 09:21 | CP.PCM.CON ---
Past Patient History - Past Medical History & Family History Past Medical History?: Yes - Past Social History Smoking Status: Never Smoked - CARDIAC Hx Hypercholesterolemia: Yes Hx Hypertension: Yes - PULMONARY Hx Asthma: Yes Hx Bronchitis: Yes Hx Chronic Obstructive Pulmonary Disease (COPD): Yes Hx Pneumonia: Yes - NEUROLOGICAL Hx Dementia: Yes - HEENT Hx HEENT Problems: No - RENAL Hx Chronic Kidney Disease: No - ENDOCRINE/METABOLIC Hx Endocrine Disorders: No - HEMATOLOGICAL/ONCOLOGICAL Hx AIDS: No Hx Anemia: Yes Hx Human Immunodeficiency Virus (HIV): No - INTEGUMENTARY Hx Dermatological Problems: No - MUSCULOSKELETAL/RHEUMATOLOGICAL Hx Arthritis: Yes Hx Falls: No - GASTROINTESTINAL Hx Diverticulitis: Yes - GENITOURINARY/GYNECOLOGICAL Hx Genitourinary Disorders: No - PSYCHIATRIC Hx Depression: Yes Hx Substance Use: No - SURGICAL HISTORY Hx Surgeries: Yes Hx Hysterectomy: Yes Hx Orthopedic Surgery: Yes Other/Comment: Kidney Surgery, Left Hip Replacement, left knee surgery - ANESTHESIA Hx Anesthesia: Yes Hx Anesthesia Reactions: No Hx Malignant Hyperthermia: No Meds Allergies/Adverse Reactions: Allergies Allergy/AdvReac Type Severity Reaction Status Date / Time No Known Allergies Allergy Verified 09/19/17 15:22 - Medications Medications: Current Medications Acetaminophen (Tylenol 325mg Tab) 650 mg PO Q6 PRN PRN Reason: Pain, moderate (4-7) Al Hydrox/Mg Hydrox/Simethicone (Maalox Plus 30 Ml) 30 ml PO Q6 PRN PRN Reason: Indigestion / Heartburn Albuterol Sulfate (Albuterol 0.083% Inhal Carmen (2.5 Mg/3 Ml) Ud) 2.5 mg INH RQ4 PRN PRN Reason: Shortness of Breath Last Admin: 09/19/17 23:59 Dose: 2.5 mg Albuterol/Ipratropium (Duoneb 3 Mg/0.5 Mg (3 Ml) Ud) 3 ml INH RQID [facility] Last Admin: 09/22/17 07:15 Dose: 3 ml Budesonide (Pulmicort Respules) 0.25 mg INH RBID [facility] Docusate Sodium (Colace) 200 mg PO DAILY [facility] Last Admin: 09/22/17 08:43 Dose: 200 mg Enoxaparin Sodium (Lovenox) 40 mg SC DAILY [facility] PRN Reason: Protocol Last Admin: 09/22/17 08:42 Dose: 40 mg Furosemide (Lasix) 20 mg PO QOTHERDAY [facility] Last Admin: 09/21/17 08:33 Dose: 20 mg Latanoprost (Xalatan Opht) 1 drop OU DAILY [facility] Last Admin: 09/22/17 08:41 Dose: 1 drop Lidocaine (Lidoderm) 1 ea TD DAILY [facility] Last Admin: 09/22/17 08:47 Dose: 1 ea Losartan Potassium (Cozaar) 100 mg PO DAILY [facility] Last Admin: 09/22/17 08:42 Dose: 100 mg Memantine (Namenda) 10 mg PO BID [facility] Last Admin: 09/22/17 08:43 Dose: 10 mg Metoprolol Succinate (Toprol Xl) 50 mg PO DAILY [facility] Last Admin: 09/22/17 08:43 Dose: 50 mg Montelukast Sodium (Singulair) 10 mg PO DAILY [facility] Last Admin: 09/22/17 08:42 Dose: 10 mg Pantoprazole Sodium (Protonix Ec Tab) 40 mg PO DAILY [facility] Last Admin: 09/22/17 08:42 Dose: 40 mg Paroxetine HCl (Paxil) 20 mg PO DAILY [facility] Last Admin: 09/22/17 08:45 Dose: 20 mg Pravastatin Sodium (Pravachol) 20 mg PO HS [facility] Last Admin: 09/21/17 21:34 Dose: 20 mg Spironolactone (Aldactone) 12.5 mg PO DAILY [facility] Last Admin: 09/22/17 08:42 Dose: 12.5 mg Physical Exam - Additional Findings Additional findings: Lying in bed, mildly distressed from abdominal discomfort. No shortness of breath or cough. Pharynx is pink and moist w/o exudate. Neck is supple, trachea is midline, no visible JVD. No dullness on chestpercussion anteriorly. + dullness at the right base posteriorly. No audible wheezes or bronchial breath sounds. Few dry rales in lower lobes bilaterally. Breath sounds at the right base are very diminished. Heart sounds are slightly distant, rhythm is regular. Abdomen is mildly distended, bowel sounds are present. No dependant edema, no cynosis. Results - Vital Signs Recent Vital Signs: Last Vital Signs Temp 98.2 F 09/21/17 19:17 Pulse 65 09/22/17 08:43 Resp 20 09/21/17 19:17 BP 119/50 L 09/22/17 08:43 Pulse Ox 96 09/21/17 19:17 Assessment & Plan (1) COPD (chronic obstructive pulmonary disease) Status: Chronic Priority: High (2) Chronic asthma Status: Chronic Priority: High (3) Pleural effusion Status: Chronic Priority: Medium - Assessment and Plan (Free Text) Assessment: Asthma/COPD overlap syndrome; appears stable on present regimen. Persistent/recurrent right pleural effusion without definitive diagnosis for etiology. Patient is going for chest x-ray presently. Medications adjusted, low inspiratory force may make Advair inhalation ineffective. Have stopped Advair, continue Duoneb QID and add budesonide 0.25MG BID. - Date & Time Date: 09/22/17 Time: 09:19
--- NOTE | 2017-09-22 13:59 | RAD ---
HISTORY: md COMPARISON: No prior. TECHNIQUE: Chest PA and lateral FINDINGS: LUNGS: Vague opacity right lower lobe may represent some combination of atelectasis/infiltrate and effusion. Suspect mild left basilar atelectasis with suspected small left effusion. . Vague opacity left upper lobe could represent developing infiltrate. PLEURA: As above. No pneumothorax Mild right apical pleural thickening. . CARDIOVASCULAR: Heart appears enlarged. Aorta is slightly ectatic and uncoiled. OSSEOUS STRUCTURES: Mild multilevel degenerative spondylosis of the thoracic spine. VISUALIZED UPPER ABDOMEN: Normal. OTHER FINDINGS: None. IMPRESSION: Vague opacity right lower lobe may represent some combination of atelectasis/infiltrate and effusion. Suspect mild left basilar atelectasis with suspected small left effusion. . Vague opacity left upper lobe could represent developing infiltrate.
[2017-09-22] MEDS: Budesonide 0.25 mg/2 ml Inhal Susp UD INH SCH (19:16)
[2017-09-22] MEDS: Pravastatin Sodium 20 MG TAB PO SCH (21:31)
[2017-09-23] MEDS: Budesonide 0.25 mg/2 ml Inhal Susp UD INH SCH ×2 (07:18→19:37)
[2017-09-23] MEDS: Albuterol-Ipratrop 3 mg / 0.5 (3 ml) UD INH SCH ×4 (07:18→19:37)
[2017-09-23] MEDS: Enoxaparin 40 mg Syringe SC SCH (08:28)
[2017-09-23] MEDS: Metoprolol Succinate 50 mg XL Tab PO SCH (08:28)
[2017-09-23] MEDS: Lidocaine 5% Patch TD SCH (08:29)
[2017-09-23] MEDS: Pantoprazole 40 mg EC Tab PO SCH (08:29)
[2017-09-23] MEDS: Latanoprost 0.005% Opht SOUTION OU SCH (08:34)
--- NOTE | 2017-09-23 12:42 | CP.PCM.PN ---
Subjective - Date & Time of Evaluation Date of Evaluation: 09/22/17 Time of Evaluation: 10:30 - Subjective Subjective: patient is doing a lot better Has no SOB Has no chest pain. Recent CXR showed improvement of pleural effusion. Objective - Vital Signs/Intake and Output Vital Signs (last 24 hours): Temp Pulse Resp BP Pulse Ox 97.2 F L 56 L 20 123/51 L 100 09/23/17 10:11 09/23/17 10:11 09/23/17 10:11 09/23/17 10:11 09/23/17 10:11 - Medications Medications: Current Medications Acetaminophen (Tylenol 325mg Tab) 650 mg PO Q6 PRN PRN Reason: Pain, moderate (4-7) Al Hydrox/Mg Hydrox/Simethicone (Maalox Plus 30 Ml) 30 ml PO Q6 PRN PRN Reason: Indigestion / Heartburn Albuterol Sulfate (Albuterol 0.083% Inhal Carmen (2.5 Mg/3 Ml) Ud) 2.5 mg INH RQ4 PRN PRN Reason: Shortness of Breath Last Admin: 09/19/17 23:59 Dose: 2.5 mg Albuterol/Ipratropium (Duoneb 3 Mg/0.5 Mg (3 Ml) Ud) 3 ml INH RQID [facility] Last Admin: 09/23/17 11:18 Dose: 3 ml Budesonide (Pulmicort Respules) 0.25 mg INH RBID [facility] Last Admin: 09/23/17 07:18 Dose: 0.25 mg Docusate Sodium (Colace) 200 mg PO DAILY [facility] Last Admin: 09/23/17 08:28 Dose: 200 mg Furosemide (Lasix) 20 mg PO QOTHERDAY [facility] Last Admin: 09/23/17 08:30 Dose: 20 mg Latanoprost (Xalatan Opht) 1 drop OU DAILY [facility] Last Admin: 09/23/17 08:34 Dose: 1 drop Lidocaine (Lidoderm) 1 ea TD DAILY [facility] Last Admin: 09/23/17 08:29 Dose: 1 ea Losartan Potassium (Cozaar) 100 mg PO DAILY [facility] Last Admin: 09/23/17 08:30 Dose: 100 mg Memantine (Namenda) 10 mg PO BID [facility] Last Admin: 09/23/17 08:29 Dose: 10 mg Metoprolol Succinate (Toprol Xl) 50 mg PO DAILY [facility] Last Admin: 09/23/17 08:28 Dose: 50 mg Montelukast Sodium (Singulair) 10 mg PO DAILY [facility] Last Admin: 09/23/17 08:32 Dose: 10 mg Pantoprazole Sodium (Protonix Ec Tab) 40 mg PO DAILY [facility] Last Admin: 09/23/17 08:29 Dose: 40 mg Paroxetine HCl (Paxil) 20 mg PO DAILY [facility] Last Admin: 09/23/17 08:32 Dose: 20 mg Pravastatin Sodium (Pravachol) 20 mg PO HS [facility] Last Admin: 09/22/17 21:31 Dose: 20 mg Spironolactone (Aldactone) 12.5 mg PO DAILY [facility] Last Admin: 09/23/17 08:32 Dose: 12.5 mg - Head Exam Head Exam: NORMAL INSPECTION - Eye Exam Eye Exam: Normal appearance - ENT Exam ENT Exam: Mucous Membranes Moist - Respiratory Exam Respiratory Exam: Decreased Breath Sounds, Rhonchi - Cardiovascular Exam Cardiovascular Exam: REGULAR RHYTHM - GI/Abdominal Exam GI & Abdominal Exam: Normal Bowel Sounds Assessment and Plan (1) Physical deconditioning Status: Acute (2) Asthma Status: Acute (3) CHF (congestive heart failure), NYHA class II Status: Acute (4) Hypertension Status: Chronic (5) Osteoarthritis Status: Chronic (6) Pleural effusion Status: Resolved - Assessment and Plan (Free Text) Plan: Cont meds Cont tx Cont PT cont tx
--- NOTE | 2017-09-23 12:51 | CP.PCM.PN ---
Subjective - Date & Time of Evaluation Date of Evaluation: 09/23/17 Time of Evaluation: 10:30 - Subjective Subjective: Patient is stable Has no chest pain or SOB. Afebrile Doing well with PT Objective - Vital Signs/Intake and Output Vital Signs (last 24 hours): Temp Pulse Resp BP Pulse Ox 97.2 F L 56 L 20 123/51 L 100 09/23/17 10:11 09/23/17 10:11 09/23/17 10:11 09/23/17 10:11 09/23/17 10:11 - Medications Medications: Current Medications Acetaminophen (Tylenol 325mg Tab) 650 mg PO Q6 PRN PRN Reason: Pain, moderate (4-7) Al Hydrox/Mg Hydrox/Simethicone (Maalox Plus 30 Ml) 30 ml PO Q6 PRN PRN Reason: Indigestion / Heartburn Albuterol Sulfate (Albuterol 0.083% Inhal Carmen (2.5 Mg/3 Ml) Ud) 2.5 mg INH RQ4 PRN PRN Reason: Shortness of Breath Last Admin: 09/19/17 23:59 Dose: 2.5 mg Albuterol/Ipratropium (Duoneb 3 Mg/0.5 Mg (3 Ml) Ud) 3 ml INH RQID [facility] Last Admin: 09/23/17 11:18 Dose: 3 ml Budesonide (Pulmicort Respules) 0.25 mg INH RBID [facility] Last Admin: 09/23/17 07:18 Dose: 0.25 mg Docusate Sodium (Colace) 200 mg PO DAILY [facility] Last Admin: 09/23/17 08:28 Dose: 200 mg Furosemide (Lasix) 20 mg PO QOTHERDAY [facility] Last Admin: 09/23/17 08:30 Dose: 20 mg Latanoprost (Xalatan Opht) 1 drop OU DAILY [facility] Last Admin: 09/23/17 08:34 Dose: 1 drop Lidocaine (Lidoderm) 1 ea TD DAILY [facility] Last Admin: 09/23/17 08:29 Dose: 1 ea Losartan Potassium (Cozaar) 100 mg PO DAILY [facility] Last Admin: 09/23/17 08:30 Dose: 100 mg Memantine (Namenda) 10 mg PO BID [facility] Last Admin: 09/23/17 08:29 Dose: 10 mg Metoprolol Succinate (Toprol Xl) 50 mg PO DAILY [facility] Last Admin: 09/23/17 08:28 Dose: 50 mg Montelukast Sodium (Singulair) 10 mg PO DAILY [facility] Last Admin: 09/23/17 08:32 Dose: 10 mg Pantoprazole Sodium (Protonix Ec Tab) 40 mg PO DAILY [facility] Last Admin: 09/23/17 08:29 Dose: 40 mg Paroxetine HCl (Paxil) 20 mg PO DAILY [facility] Last Admin: 09/23/17 08:32 Dose: 20 mg Pravastatin Sodium (Pravachol) 20 mg PO [facility] Last Admin: 09/22/17 21:31 Dose: 20 mg Spironolactone (Aldactone) 12.5 mg PO DAILY [facility] Last Admin: 09/23/17 08:32 Dose: 12.5 mg - Head Exam Head Exam: NORMAL INSPECTION - ENT Exam ENT Exam: Mucous Membranes Moist - Respiratory Exam Respiratory Exam: Decreased Breath Sounds - Cardiovascular Exam Cardiovascular Exam: REGULAR RHYTHM - GI/Abdominal Exam GI & Abdominal Exam: Normal Bowel Sounds Assessment and Plan (1) Pleural effusion Status: Chronic (2) Diastolic CHF Status: Acute (3) Hypertension Status: Chronic (4) Osteoarthritis Status: Chronic - Assessment and Plan (Free Text) Plan: Cont med cont tx cont PT monitor effusion.
[2017-09-23] MEDS: Pravastatin Sodium 20 MG TAB PO SCH (21:08)
[2017-09-24] MEDS: Budesonide 0.25 mg/2 ml Inhal Susp UD INH SCH ×2 (07:34→19:15)
[2017-09-24] MEDS: Albuterol-Ipratrop 3 mg / 0.5 (3 ml) UD INH SCH ×4 (07:34→19:15)
[2017-09-24] MEDS: Lidocaine 5% Patch TD SCH (09:07)
[2017-09-24] MEDS: Latanoprost 0.005% Opht SOUTION OU SCH (09:10)
[2017-09-24] MEDS: Metoprolol Succinate 50 mg XL Tab PO SCH (09:14)
[2017-09-24] MEDS: Pantoprazole 40 mg EC Tab PO SCH (09:15)
--- NOTE | 2017-09-24 11:17 | CP.PCM.PN ---
Subjective - Date & Time of Evaluation Date of Evaluation: 09/24/17 Time of Evaluation: 11:16 - Subjective Subjective: Apparently has been doing well. Clinically stable. POA has reconsidered surgery and now is in agreement. Will repeat CT chest to evaluate if surgery is still needed. Objective - Vital Signs/Intake and Output Vital Signs (last 24 hours): Temp Pulse Resp BP Pulse Ox 97.2 F L 64 20 120/60 96 09/24/17 08:43 09/24/17 09:14 09/24/17 08:43 09/24/17 09:14 09/24/17 08:43 - Medications Medications: Current Medications Acetaminophen (Tylenol 325mg Tab) 650 mg PO Q6 PRN PRN Reason: Pain, moderate (4-7) Al Hydrox/Mg Hydrox/Simethicone (Maalox Plus 30 Ml) 30 ml PO Q6 PRN PRN Reason: Indigestion / Heartburn Albuterol Sulfate (Albuterol 0.083% Inhal Carmen (2.5 Mg/3 Ml) Ud) 2.5 mg INH RQ4 PRN PRN Reason: Shortness of Breath Last Admin: 09/19/17 23:59 Dose: 2.5 mg Albuterol/Ipratropium (Duoneb 3 Mg/0.5 Mg (3 Ml) Ud) 3 ml INH RQID [facility] Last Admin: 09/24/17 07:34 Dose: 3 ml Budesonide (Pulmicort Respules) 0.25 mg INH RBID [facility] Last Admin: 09/24/17 07:34 Dose: 0.25 mg Docusate Sodium (Colace) 200 mg PO DAILY [facility] Last Admin: 09/24/17 09:13 Dose: 200 mg Furosemide (Lasix) 20 mg PO QOTHERDAY [facility] Last Admin: 09/23/17 08:30 Dose: 20 mg Latanoprost (Xalatan Opht) 1 drop OU DAILY [facility] Last Admin: 09/24/17 09:10 Dose: 1 drop Lidocaine (Lidoderm) 1 ea TD DAILY [facility] Last Admin: 09/24/17 09:07 Dose: 1 ea Losartan Potassium (Cozaar) 100 mg PO DAILY [facility] Last Admin: 09/24/17 09:12 Dose: 100 mg Memantine (Namenda) 10 mg PO BID [facility] Last Admin: 09/24/17 09:14 Dose: 10 mg Metoprolol Succinate (Toprol Xl) 50 mg PO DAILY [facility] Last Admin: 09/24/17 09:14 Dose: 50 mg Montelukast Sodium (Singulair) 10 mg PO DAILY [facility] Last Admin: 09/24/17 09:14 Dose: 10 mg Pantoprazole Sodium (Protonix Ec Tab) 40 mg PO DAILY [facility] Last Admin: 09/24/17 09:15 Dose: 40 mg Paroxetine HCl (Paxil) 20 mg PO DAILY [facility] Last Admin: 09/24/17 09:14 Dose: 20 mg Pravastatin Sodium (Pravachol) 20 mg PO HS [facility] Last Admin: 09/23/17 21:08 Dose: 20 mg Spironolactone (Aldactone) 12.5 mg PO DAILY [facility] Last Admin: 09/24/17 09:11 Dose: 12.5 mg Assessment and Plan (1) COPD (chronic obstructive pulmonary disease) Status: Chronic (2) Chronic asthma Status: Chronic (3) Pleural effusion Status: Chronic
[2017-09-24] MEDS: Pravastatin Sodium 20 MG TAB PO SCH (21:14)
[2017-09-25] MEDS: Albuterol-Ipratrop 3 mg / 0.5 (3 ml) UD INH SCH ×4 (07:46→19:30)
[2017-09-25] MEDS: Budesonide 0.25 mg/2 ml Inhal Susp UD INH SCH ×2 (07:46→19:30)
[2017-09-25] MEDS: Lidocaine 5% Patch TD SCH (09:07)
[2017-09-25] MEDS: Metoprolol Succinate 50 mg XL Tab PO SCH (09:11)
[2017-09-25] MEDS: Pantoprazole 40 mg EC Tab PO SCH (09:11)
[2017-09-25] MEDS: Latanoprost 0.005% Opht SOUTION OU SCH (09:12)
--- NOTE | 2017-09-25 14:34 | CP.PCM.PN ---
Subjective - Date & Time of Evaluation Date of Evaluation: 09/25/17 Time of Evaluation: 14:29 - Subjective Subjective: Appears clinically stable on the current regimen. Vital signs have remained stable. CT chest (my read) effusion is still present on the right, but the volume has decreased slightly. Able to participate with physical therapy and does not complain of shortness of breath. Oxygenation has remained acceptable. Discussed the case with surgery and decision is to defer any surgical intervention at the present time. I called her niece and explained this to her. She will be discharged to home on the current medical therapy and if she develops SOB with increased effusion, then surgery would be indicated. Meds will include spironolactone 12.5MG daily, furosemide 20MG daily, losartan 100MG daily, metoprolol ER 50 MG daily, plus montelukast, pravastatin, namenda and paxil as before. Aerosol therapy will be albuterol with ipratropium and budesonide 0.25MG (all mixed together) via nebulizer twice daily. She will need to take home the nebulizer she is using here so these treatments can be set up for her beforehand. Objective - Vital Signs/Intake and Output Vital Signs (last 24 hours): Temp Pulse Resp BP Pulse Ox 97.3 F L 63 20 135/65 89 L 09/25/17 08:05 09/25/17 09:11 09/25/17 08:05 09/25/17 09:11 09/25/17 09:27 - Medications Medications: Current Medications Acetaminophen (Tylenol 325mg Tab) 650 mg PO Q6 PRN PRN Reason: Pain, moderate (4-7) Al Hydrox/Mg Hydrox/Simethicone (Maalox Plus 30 Ml) 30 ml PO Q6 PRN PRN Reason: Indigestion / Heartburn Albuterol Sulfate (Albuterol 0.083% Inhal Carmen (2.5 Mg/3 Ml) Ud) 2.5 mg INH RQ4 PRN PRN Reason: Shortness of Breath Last Admin: 09/19/17 23:59 Dose: 2.5 mg Albuterol/Ipratropium (Duoneb 3 Mg/0.5 Mg (3 Ml) Ud) 3 ml INH RQID [facility] Last Admin: 09/25/17 10:59 Dose: 3 ml Budesonide (Pulmicort Respules) 0.25 mg INH RBID [facility] Last Admin: 09/25/17 07:46 Dose: 0.25 mg Docusate Sodium (Colace) 200 mg PO DAILY [facility] Last Admin: 09/25/17 09:05 Dose: 200 mg Furosemide (Lasix) 20 mg PO QOTHERDAY [facility] Last Admin: 09/25/17 09:07 Dose: 20 mg Latanoprost (Xalatan Opht) 1 drop OU DAILY [facility] Last Admin: 09/25/17 09:12 Dose: 1 drop Lidocaine (Lidoderm) 1 ea TD DAILY [facility] Last Admin: 09/25/17 09:07 Dose: 1 ea Losartan Potassium (Cozaar) 100 mg PO DAILY [facility] Last Admin: 09/25/17 09:05 Dose: 100 mg Memantine (Namenda) 10 mg PO BID [facility] Last Admin: 09/25/17 09:09 Dose: 10 mg Metoprolol Succinate (Toprol Xl) 50 mg PO DAILY [facility] Last Admin: 09/25/17 09:11 Dose: 50 mg Montelukast Sodium (Singulair) 10 mg PO DAILY [facility] Last Admin: 09/25/17 09:11 Dose: 10 mg Pantoprazole Sodium (Protonix Ec Tab) 40 mg PO DAILY [facility] Last Admin: 09/25/17 09:11 Dose: 40 mg Paroxetine HCl (Paxil) 20 mg PO DAILY [facility] Last Admin: 09/25/17 09:10 Dose: 20 mg Pravastatin Sodium (Pravachol) 20 mg PO HS [facility] Last Admin: 09/24/17 21:14 Dose: 20 mg Spironolactone (Aldactone) 12.5 mg PO DAILY [facility] Last Admin: 09/25/17 09:04 Dose: 12.5 mg Assessment and Plan (1) COPD (chronic obstructive pulmonary disease) Status: Chronic (2) Chronic asthma Status: Chronic (3) Pleural effusion Status: Chronic
[2017-09-25] MEDS: Pravastatin Sodium 20 MG TAB PO SCH (21:44)
[2017-09-26] MEDS: Budesonide 0.25 mg/2 ml Inhal Susp UD INH SCH ×2 (07:19→19:43)
[2017-09-26] MEDS: Albuterol-Ipratrop 3 mg / 0.5 (3 ml) UD INH SCH ×4 (07:19→19:43)
[2017-09-26] MEDS: Latanoprost 0.005% Opht SOUTION OU SCH (09:21)
[2017-09-26] MEDS: Metoprolol Succinate 50 mg XL Tab PO SCH (09:22)
[2017-09-26] MEDS: Pantoprazole 40 mg EC Tab PO SCH (09:24)
[2017-09-26] MEDS: Lidocaine 5% Patch TD SCH (09:25)
[2017-09-26] MEDS: Pravastatin Sodium 20 MG TAB PO SCH (21:16)
[2017-09-27] MEDS: Albuterol-Ipratrop 3 mg / 0.5 (3 ml) UD INH SCH ×4 (07:12→19:18)
[2017-09-27] MEDS: Budesonide 0.25 mg/2 ml Inhal Susp UD INH SCH ×2 (07:13→19:18)
[2017-09-27] MEDS: Lidocaine 5% Patch TD SCH (08:35)
[2017-09-27] MEDS: Metoprolol Succinate 50 mg XL Tab PO SCH (08:36)
[2017-09-27] MEDS: Pantoprazole 40 mg EC Tab PO SCH (08:38)
[2017-09-27] MEDS: Latanoprost 0.005% Opht SOUTION OU SCH (16:43)
[2017-09-27] MEDS: Pravastatin Sodium 20 MG TAB PO SCH (21:10)
[2017-09-28] MEDS: Albuterol-Ipratrop 3 mg / 0.5 (3 ml) UD INH SCH ×4 (07:32→19:22)
[2017-09-28] MEDS: Budesonide 0.25 mg/2 ml Inhal Susp UD INH SCH ×2 (07:32→19:22)
[2017-09-28] MEDS: Lidocaine 5% Patch TD SCH (09:14)
[2017-09-28] MEDS: Latanoprost 0.005% Opht SOUTION OU SCH (09:14)
[2017-09-28] MEDS: Pantoprazole 40 mg EC Tab PO SCH (09:16)
[2017-09-28] MEDS: Metoprolol Succinate 50 mg XL Tab PO SCH (09:16)
[2017-09-28] MEDS: Pravastatin Sodium 20 MG TAB PO SCH (21:09)
[2017-09-29] MEDS: Albuterol-Ipratrop 3 mg / 0.5 (3 ml) UD INH SCH ×4 (07:15→19:40)
[2017-09-29] MEDS: Budesonide 0.25 mg/2 ml Inhal Susp UD INH SCH ×2 (07:15→19:40)
[2017-09-29] MEDS: Latanoprost 0.005% Opht SOUTION OU SCH (08:43)
[2017-09-29] MEDS: Pantoprazole 40 mg EC Tab PO SCH (08:45)
[2017-09-29] MEDS: Metoprolol Succinate 50 mg XL Tab PO SCH (08:45)
[2017-09-29] MEDS: Lidocaine 5% Patch TD SCH (08:49)
[2017-09-29 21:17] VITALS: O2SAT 98
[2017-09-29] MEDS: Pravastatin Sodium 20 MG TAB PO SCH (21:54)
[2017-09-30] MEDS: Albuterol-Ipratrop 3 mg / 0.5 (3 ml) UD INH SCH ×2 (07:29→11:02)
[2017-09-30] MEDS: Budesonide 0.25 mg/2 ml Inhal Susp UD INH SCH (07:29)
[2017-09-30 08:07] VITALS: BP 124/52; PULSE 62; TEMP 98.4
[2017-09-30] MEDS: Lidocaine 5% Patch TD SCH (09:04)
[2017-09-30] MEDS: Metoprolol Succinate 50 mg XL Tab PO SCH (09:05)
[2017-09-30] MEDS: Pantoprazole 40 mg EC Tab PO SCH (09:06)
[2017-09-30] MEDS: Latanoprost 0.005% Opht SOUTION OU SCH (09:07)
--- NOTE | 2017-09-30 09:14 | CP.PCM.PN ---
Subjective - Date & Time of Evaluation Date of Evaluation: 09/30/17 Time of Evaluation: 09:10 - Subjective Subjective: Seated in bedside chair. Offers no complaints. Appears comfortable. Vital signs have been stable. Dullness is present in the right base posteriorly. Breath sounds are diminished in the right base. No bronchial breath sounds or wheezes. Dry rales are present in the RLL. Plan for discharge to home today. Outpatient follow up on current medical regimen. If she becomes symptomatic or CXR shows increased effusion VATS with biopsy and pleurodesis will be done. Objective - Vital Signs/Intake and Output Vital Signs (last 24 hours): Temp Pulse Resp BP Pulse Ox 98.4 F 62 20 124/52 L 98 09/30/17 08:06 09/30/17 09:06 09/30/17 08:06 09/30/17 09:06 09/30/17 08:06 - Medications Medications: Current Medications Acetaminophen (Tylenol 325mg Tab) 650 mg PO Q6 PRN PRN Reason: Pain, moderate (4-7) Al Hydrox/Mg Hydrox/Simethicone (Maalox Plus 30 Ml) 30 ml PO Q6 PRN PRN Reason: Indigestion / Heartburn Albuterol Sulfate (Albuterol 0.083% Inhal Carmen (2.5 Mg/3 Ml) Ud) 2.5 mg INH RQ4 PRN PRN Reason: Shortness of Breath Last Admin: 09/19/17 23:59 Dose: 2.5 mg Albuterol/Ipratropium (Duoneb 3 Mg/0.5 Mg (3 Ml) Ud) 3 ml INH RQID [facility] Last Admin: 09/30/17 07:29 Dose: 3 ml Budesonide (Pulmicort Respules) 0.25 mg INH RBID [facility] Last Admin: 09/30/17 07:29 Dose: 0.25 mg Docusate Sodium (Colace) 200 mg PO DAILY [facility] Last Admin: 09/30/17 09:05 Dose: 200 mg Furosemide (Lasix) 20 mg PO QOTHERDAY [facility] Last Admin: 09/29/17 08:43 Dose: 20 mg Latanoprost (Xalatan Opht) 1 drop OU DAILY [facility] Last Admin: 09/30/17 09:07 Dose: 1 drop Lidocaine (Lidoderm) 1 ea TD DAILY [facility] Last Admin: 09/30/17 09:04 Dose: 1 ea Losartan Potassium (Cozaar) 100 mg PO DAILY [facility] Last Admin: 09/30/17 09:06 Dose: 100 mg Memantine (Namenda) 10 mg PO BID [facility] Last Admin: 09/30/17 09:06 Dose: 10 mg Metoprolol Succinate (Toprol Xl) 50 mg PO DAILY [facility] Last Admin: 09/30/17 09:05 Dose: 50 mg Montelukast Sodium (Singulair) 10 mg PO DAILY [facility] Last Admin: 09/30/17 09:06 Dose: 10 mg Pantoprazole Sodium (Protonix Ec Tab) 40 mg PO DAILY [facility] Last Admin: 09/30/17 09:06 Dose: 40 mg Paroxetine HCl (Paxil) 20 mg PO DAILY [facility] Last Admin: 09/30/17 09:05 Dose: 20 mg Pravastatin Sodium (Pravachol) 20 mg PO HS [facility] Last Admin: 09/29/17 21:54 Dose: 20 mg Spironolactone (Aldactone) 12.5 mg PO DAILY [facility] Last Admin: 09/30/17 09:05 Dose: 12.5 mg Assessment and Plan (1) COPD (chronic obstructive pulmonary disease) Status: Chronic (2) Chronic asthma Status: Chronic (3) Pleural effusion Status: Chronic
--- NOTE | 2017-09-30 11:43 | CP.PCM.DIS ---
Provider - Provider Date of Admission: 09/19/17 15:22 Attending physician: Ariel Gaviria MD Primary care physician: Martinez Oliveira Consults: Dr. Lawrence-Pulmonology Time Spent in preparation of Discharge (in minutes): 30 Diagnosis - Discharge Diagnosis (1) Pleural effusion Status: Resolved Priority: Low (2) Physical deconditioning Status: Acute Priority: Low Hospital Course - Hospital Course Hospital Course: 86 yr old admitted to TCU for rehabilitation s/p recurrent pleural effusion. Patient was awaiting VATS procedure, power of senior attorney refused to sign consent upon discussion with anesthesia. Patient is stable for discharge with recommendation to follow up with Dr. Hameed within 1 week, Dr. Gamboa and Dr. Fernandez. Id pleural effusion recurs as outpatient, recommendation remains for VATS with biopsy and pleurodesis at discretion of patients POA. Patient is stable for discharge home. - Date & Time of H&P Date of H&P: 09/20/17 Time of H&P: 10:00 Discharge Exam - Head Exam Head Exam: NORMAL INSPECTION - Eye Exam Eye Exam: EOMI - ENT Exam ENT Exam: Mucous Membranes Moist - Neck Exam Neck exam: Full Rom - Respiratory Exam Respiratory Exam: NORMAL BREATHING PATTERN - Cardiovascular Exam Cardiovascular Exam: REGULAR RHYTHM, +S1, +S2 - GI/Abdominal Exam GI & Abdominal Exam: Normal Bowel Sounds, Soft - Neurological Exam Neurological exam: Alert, CN II-XII Intact - Psychiatric Exam Psychiatric exam: Normal Affect, Normal Mood - Skin Skin Exam: Dry, Normal Color, Warm Discharge Plan - Discharge Medications Prescriptions: Acetaminophen [Tylenol 325mg tab] 650 mg PO Q6 PRN #30 tab PRN Reason: Pain, Moderate (4-7) Acetylcysteine 20% 2 ml INH RBID #1 vial Albuterol 0.083% [Albuterol 0.083% Inhal Carmen (2.5 mg/3 ml) UD] 2.5 mg INH RQ4 PRN #1 vial PRN Reason: Shortness Of Breath Bimatoprost [Lumigan] 1 drop BOTHEYES DAILY #1 bottle Docusate [Colace] 200 mg PO DAILY #60 cap Fluticasone/Salmeterol [Advair 250-50 Diskus] 1 puff PO DAILY #1 blst.w.dev Furosemide [Lasix] 20 mg PO QOTHERDAY #30 tab Latanoprost 0.005% Opht [Xalatan Opht] 1 drop OU DAILY #1 bottle Losartan [Cozaar] 100 mg PO DAILY #30 tab Memantine [Namenda] 10 mg PO BID #60 tab Metoprolol Succinate [Toprol XL] 50 mg PO DAILY #30 tab Montelukast Sodium [Singulair] 10 mg PO DAILY #30 tablet Pantoprazole [Protonix EC Tab] 40 mg PO DAILY #30 ect Paroxetine HCl [Paxil] 20 mg PO DAILY #30 tablet Pravastatin Sodium [Pravachol] 20 mg PO HS #30 tablet Spironolactone [Aldactone] 12.5 mg PO DAILY #30 tab - Follow Up Plan Condition: GOOD Disposition: HOME/ ROUTINE Instructions: Pleural Effusion (DC), Fall Prevention (DC) Additional Instructions: -Follow up with Dr. Hameed within 1 week, follow up with cardiology Dr. Fernandez within 1 week, follow up with pulmonology- Dr. Gamboa within 1 week. -Take medications as prescribed. Referrals: Renzo Fernandez MD [Staff Provider] - Martinez Hameed MD [Family Provider] - Tahir Gamboa MD [Staff Provider] - Clinical Quality Measures - Date & Time of Discharge Summary Date of Discharge Summary: 09/30/17 Time of Discharge Summary: 11:49
--- NOTE | 2017-09-30 12:57 | CP.PCM.PN ---
Subjective - Date & Time of Evaluation Date of Evaluation: 09/24/17 Time of Evaluation: 10:00 - Subjective Subjective: Patient feel a lot better Has no chest pain or SOB Still with pleural effusion but less. Objective - Vital Signs/Intake and Output Vital Signs (last 24 hours): Temp Pulse Resp BP Pulse Ox 98.4 F 62 20 124/52 L 98 09/30/17 08:06 09/30/17 09:06 09/30/17 08:06 09/30/17 09:06 09/30/17 08:06 - Medications Medications: Current Medications Acetaminophen (Tylenol 325mg Tab) 650 mg PO Q6 PRN PRN Reason: Pain, moderate (4-7) Al Hydrox/Mg Hydrox/Simethicone (Maalox Plus 30 Ml) 30 ml PO Q6 PRN PRN Reason: Indigestion / Heartburn Albuterol Sulfate (Albuterol 0.083% Inhal Carmen (2.5 Mg/3 Ml) Ud) 2.5 mg INH RQ4 PRN PRN Reason: Shortness of Breath Last Admin: 09/19/17 23:59 Dose: 2.5 mg Albuterol/Ipratropium (Duoneb 3 Mg/0.5 Mg (3 Ml) Ud) 3 ml INH RQID [facility] Last Admin: 09/30/17 11:02 Dose: 3 ml Budesonide (Pulmicort Respules) 0.25 mg INH RBID [facility] Last Admin: 09/30/17 07:29 Dose: 0.25 mg Docusate Sodium (Colace) 200 mg PO DAILY [facility] Last Admin: 09/30/17 09:05 Dose: 200 mg Furosemide (Lasix) 20 mg PO QOTHERDAY [facility] Last Admin: 09/29/17 08:43 Dose: 20 mg Latanoprost (Xalatan Opht) 1 drop OU DAILY [facility] Last Admin: 09/30/17 09:07 Dose: 1 drop Lidocaine (Lidoderm) 1 ea TD DAILY [facility] Last Admin: 09/30/17 09:04 Dose: 1 ea Losartan Potassium (Cozaar) 100 mg PO DAILY [facility] Last Admin: 09/30/17 09:06 Dose: 100 mg Memantine (Namenda) 10 mg PO BID [facility] Last Admin: 09/30/17 09:06 Dose: 10 mg Metoprolol Succinate (Toprol Xl) 50 mg PO DAILY [facility] Last Admin: 09/30/17 09:05 Dose: 50 mg Montelukast Sodium (Singulair) 10 mg PO DAILY [facility] Last Admin: 09/30/17 09:06 Dose: 10 mg Pantoprazole Sodium (Protonix Ec Tab) 40 mg PO DAILY [facility] Last Admin: 09/30/17 09:06 Dose: 40 mg Paroxetine HCl (Paxil) 20 mg PO DAILY [facility] Last Admin: 09/30/17 09:05 Dose: 20 mg Pravastatin Sodium (Pravachol) 20 mg PO HS [facility] Last Admin: 09/29/17 21:54 Dose: 20 mg Spironolactone (Aldactone) 12.5 mg PO DAILY [facility] Last Admin: 09/30/17 09:05 Dose: 12.5 mg - Head Exam Head Exam: NORMAL INSPECTION - Eye Exam Eye Exam: Normal appearance - ENT Exam ENT Exam: Mucous Membranes Moist - Respiratory Exam Respiratory Exam: Decreased Breath Sounds - Cardiovascular Exam Cardiovascular Exam: REGULAR RHYTHM - GI/Abdominal Exam GI & Abdominal Exam: Normal Bowel Sounds - Neurological Exam Neurological Exam: CN II-XII Intact, Oriented x3 Assessment and Plan (1) Physical deconditioning Status: Acute (2) Asthma Status: Acute (3) CHF (congestive heart failure), NYHA class II Status: Acute (4) Hypertension Status: Chronic (5) Osteoarthritis Status: Chronic (6) Pleural effusion Status: Resolved - Assessment and Plan (Free Text) Plan: Con tmeds Cont tx cont PT Cont PT diuretics will hold on doing thoracentesis at this time since CXR showed improvement.
--- NOTE | 2017-09-30 12:59 | CP.PCM.PN ---
Subjective - Date & Time of Evaluation Date of Evaluation: 09/25/17 Time of Evaluation: 11:00 - Subjective Subjective: Patient remains stable Has no SOB Has no chest pain. Objective - Vital Signs/Intake and Output Vital Signs (last 24 hours): Temp Pulse Resp BP Pulse Ox 98.4 F 62 20 124/52 L 98 09/30/17 08:06 09/30/17 09:06 09/30/17 08:06 09/30/17 09:06 09/30/17 08:06 - Medications Medications: Current Medications Acetaminophen (Tylenol 325mg Tab) 650 mg PO Q6 PRN PRN Reason: Pain, moderate (4-7) Al Hydrox/Mg Hydrox/Simethicone (Maalox Plus 30 Ml) 30 ml PO Q6 PRN PRN Reason: Indigestion / Heartburn Albuterol Sulfate (Albuterol 0.083% Inhal Carmen (2.5 Mg/3 Ml) Ud) 2.5 mg INH RQ4 PRN PRN Reason: Shortness of Breath Last Admin: 09/19/17 23:59 Dose: 2.5 mg Albuterol/Ipratropium (Duoneb 3 Mg/0.5 Mg (3 Ml) Ud) 3 ml INH RQID [facility] Last Admin: 09/30/17 11:02 Dose: 3 ml Budesonide (Pulmicort Respules) 0.25 mg INH RBID [facility] Last Admin: 09/30/17 07:29 Dose: 0.25 mg Docusate Sodium (Colace) 200 mg PO DAILY [facility] Last Admin: 09/30/17 09:05 Dose: 200 mg Furosemide (Lasix) 20 mg PO QOTHERDAY [facility] Last Admin: 09/29/17 08:43 Dose: 20 mg Latanoprost (Xalatan Opht) 1 drop OU DAILY [facility] Last Admin: 09/30/17 09:07 Dose: 1 drop Lidocaine (Lidoderm) 1 ea TD DAILY [facility] Last Admin: 09/30/17 09:04 Dose: 1 ea Losartan Potassium (Cozaar) 100 mg PO DAILY [facility] Last Admin: 09/30/17 09:06 Dose: 100 mg Memantine (Namenda) 10 mg PO BID [facility] Last Admin: 09/30/17 09:06 Dose: 10 mg Metoprolol Succinate (Toprol Xl) 50 mg PO DAILY [facility] Last Admin: 09/30/17 09:05 Dose: 50 mg Montelukast Sodium (Singulair) 10 mg PO DAILY [facility] Last Admin: 09/30/17 09:06 Dose: 10 mg Pantoprazole Sodium (Protonix Ec Tab) 40 mg PO DAILY [facility] Last Admin: 09/30/17 09:06 Dose: 40 mg Paroxetine HCl (Paxil) 20 mg PO DAILY [facility] Last Admin: 09/30/17 09:05 Dose: 20 mg Pravastatin Sodium (Pravachol) 20 mg PO [facility] Last Admin: 09/29/17 21:54 Dose: 20 mg Spironolactone (Aldactone) 12.5 mg PO DAILY [facility] Last Admin: 09/30/17 09:05 Dose: 12.5 mg - Head Exam Head Exam: NORMAL INSPECTION - Eye Exam Eye Exam: Normal appearance - ENT Exam ENT Exam: Mucous Membranes Moist - Respiratory Exam Respiratory Exam: Decreased Breath Sounds, Rales - Cardiovascular Exam Cardiovascular Exam: REGULAR RHYTHM - GI/Abdominal Exam GI & Abdominal Exam: Normal Bowel Sounds Assessment and Plan (1) Physical deconditioning Status: Acute (2) Asthma Status: Acute (3) CHF (congestive heart failure), NYHA class II Status: Acute (4) Hypertension Status: Chronic (5) Osteoarthritis Status: Chronic (6) Pleural effusion Status: Resolved - Assessment and Plan (Free Text) Plan: Cont meds Cont tx Cont meds Diuretics Dc plan next week
--- NOTE | 2017-09-30 13:02 | CP.PCM.PN ---
Subjective - Date & Time of Evaluation Date of Evaluation: 09/26/17 Time of Evaluation: 10:00 - Subjective Subjective: Patient feels better Has been doing PT very well and achieved a lot of goals of PT Objective - Vital Signs/Intake and Output Vital Signs (last 24 hours): Temp Pulse Resp BP Pulse Ox 98.4 F 62 20 124/52 L 98 09/30/17 08:06 09/30/17 09:06 09/30/17 08:06 09/30/17 09:06 09/30/17 08:06 - Medications Medications: Current Medications Acetaminophen (Tylenol 325mg Tab) 650 mg PO Q6 PRN PRN Reason: Pain, moderate (4-7) Al Hydrox/Mg Hydrox/Simethicone (Maalox Plus 30 Ml) 30 ml PO Q6 PRN PRN Reason: Indigestion / Heartburn Albuterol Sulfate (Albuterol 0.083% Inhal Carmen (2.5 Mg/3 Ml) Ud) 2.5 mg INH RQ4 PRN PRN Reason: Shortness of Breath Last Admin: 09/19/17 23:59 Dose: 2.5 mg Albuterol/Ipratropium (Duoneb 3 Mg/0.5 Mg (3 Ml) Ud) 3 ml INH RQID [facility] Last Admin: 09/30/17 11:02 Dose: 3 ml Budesonide (Pulmicort Respules) 0.25 mg INH RBID [facility] Last Admin: 09/30/17 07:29 Dose: 0.25 mg Docusate Sodium (Colace) 200 mg PO DAILY [facility] Last Admin: 09/30/17 09:05 Dose: 200 mg Furosemide (Lasix) 20 mg PO QOTHERDAY [facility] Last Admin: 09/29/17 08:43 Dose: 20 mg Latanoprost (Xalatan Opht) 1 drop OU DAILY [facility] Last Admin: 09/30/17 09:07 Dose: 1 drop Lidocaine (Lidoderm) 1 ea TD DAILY [facility] Last Admin: 09/30/17 09:04 Dose: 1 ea Losartan Potassium (Cozaar) 100 mg PO DAILY [facility] Last Admin: 09/30/17 09:06 Dose: 100 mg Memantine (Namenda) 10 mg PO BID [facility] Last Admin: 09/30/17 09:06 Dose: 10 mg Metoprolol Succinate (Toprol Xl) 50 mg PO DAILY [facility] Last Admin: 09/30/17 09:05 Dose: 50 mg Montelukast Sodium (Singulair) 10 mg PO DAILY [facility] Last Admin: 09/30/17 09:06 Dose: 10 mg Pantoprazole Sodium (Protonix Ec Tab) 40 mg PO DAILY [facility] Last Admin: 09/30/17 09:06 Dose: 40 mg Paroxetine HCl (Paxil) 20 mg PO DAILY [facility] Last Admin: 09/30/17 09:05 Dose: 20 mg Pravastatin Sodium (Pravachol) 20 mg PO HS [facility] Last Admin: 09/29/17 21:54 Dose: 20 mg Spironolactone (Aldactone) 12.5 mg PO DAILY [facility] Last Admin: 09/30/17 09:05 Dose: 12.5 mg - Head Exam Head Exam: NORMAL INSPECTION - Eye Exam Eye Exam: Normal appearance - ENT Exam ENT Exam: Mucous Membranes Moist - Respiratory Exam Respiratory Exam: Decreased Breath Sounds - Cardiovascular Exam Cardiovascular Exam: REGULAR RHYTHM - Neurological Exam Neurological Exam: CN II-XII Intact, Normal Gait Assessment and Plan (1) Physical deconditioning Status: Acute (2) Asthma Status: Acute (3) CHF (congestive heart failure), NYHA class II Status: Acute (4) Hypertension Status: Chronic (5) Osteoarthritis Status: Chronic (6) Pleural effusion Status: Resolved - Assessment and Plan (Free Text) Plan: Con tmeds Cont tx Cont PT cont lasix low dose
--- NOTE | 2017-09-30 13:15 | CP.PCM.PN ---
Subjective - Date & Time of Evaluation Date of Evaluation: 09/27/17 Time of Evaluation: 10:40 - Subjective Subjective: patient feels very well Noted to be comfortable on a chair crocheting has no SOB Has no chest pain Objective - Vital Signs/Intake and Output Vital Signs (last 24 hours): Temp Pulse Resp BP Pulse Ox 98.4 F 62 20 124/52 L 98 09/30/17 08:06 09/30/17 09:06 09/30/17 08:06 09/30/17 09:06 09/30/17 08:06 - Medications Medications: Current Medications Acetaminophen (Tylenol 325mg Tab) 650 mg PO Q6 PRN PRN Reason: Pain, moderate (4-7) Al Hydrox/Mg Hydrox/Simethicone (Maalox Plus 30 Ml) 30 ml PO Q6 PRN PRN Reason: Indigestion / Heartburn Albuterol Sulfate (Albuterol 0.083% Inhal Carmen (2.5 Mg/3 Ml) Ud) 2.5 mg INH RQ4 PRN PRN Reason: Shortness of Breath Last Admin: 09/19/17 23:59 Dose: 2.5 mg Albuterol/Ipratropium (Duoneb 3 Mg/0.5 Mg (3 Ml) Ud) 3 ml INH RQID [facility] Last Admin: 09/30/17 11:02 Dose: 3 ml Budesonide (Pulmicort Respules) 0.25 mg INH RBID [facility] Last Admin: 09/30/17 07:29 Dose: 0.25 mg Docusate Sodium (Colace) 200 mg PO DAILY [facility] Last Admin: 09/30/17 09:05 Dose: 200 mg Furosemide (Lasix) 20 mg PO QOTHERDAY [facility] Last Admin: 09/29/17 08:43 Dose: 20 mg Latanoprost (Xalatan Opht) 1 drop OU DAILY [facility] Last Admin: 09/30/17 09:07 Dose: 1 drop Lidocaine (Lidoderm) 1 ea TD DAILY [facility] Last Admin: 09/30/17 09:04 Dose: 1 ea Losartan Potassium (Cozaar) 100 mg PO DAILY [facility] Last Admin: 09/30/17 09:06 Dose: 100 mg Memantine (Namenda) 10 mg PO BID [facility] Last Admin: 09/30/17 09:06 Dose: 10 mg Metoprolol Succinate (Toprol Xl) 50 mg PO DAILY [facility] Last Admin: 09/30/17 09:05 Dose: 50 mg Montelukast Sodium (Singulair) 10 mg PO DAILY [facility] Last Admin: 09/30/17 09:06 Dose: 10 mg Pantoprazole Sodium (Protonix Ec Tab) 40 mg PO DAILY [facility] Last Admin: 09/30/17 09:06 Dose: 40 mg Paroxetine HCl (Paxil) 20 mg PO DAILY [facility] Last Admin: 09/30/17 09:05 Dose: 20 mg Pravastatin Sodium (Pravachol) 20 mg PO HS [facility] Last Admin: 09/29/17 21:54 Dose: 20 mg Spironolactone (Aldactone) 12.5 mg PO DAILY [facility] Last Admin: 09/30/17 09:05 Dose: 12.5 mg - Head Exam Head Exam: NORMAL INSPECTION - Eye Exam Eye Exam: Normal appearance - ENT Exam ENT Exam: Mucous Membranes Moist - Respiratory Exam Respiratory Exam: Decreased Breath Sounds, Rhonchi - Cardiovascular Exam Cardiovascular Exam: REGULAR RHYTHM Assessment and Plan (1) Physical deconditioning Status: Acute (2) Asthma Status: Acute (3) CHF (congestive heart failure), NYHA class II Status: Acute (4) Hypertension Status: Chronic (5) Osteoarthritis Status: Chronic (6) Pleural effusion Status: Resolved - Assessment and Plan (Free Text) Plan: Con tmeds Con ttx Cont PT
== END 2017-09-30 13:20 | disposition home or self-care (01) | DRG 187 ==
LOC: H.TCU 15:22
PROVIDERS: ADMIT Family Medicine; ATTEND Family Medicine
PROC: F07Z5FZ Bed Mobility Treatment using Assistive, Adaptive, Supportive or Protective Equipment (ICD-10-PCS; principal; 2017-09-19)
PROC: F07L6FZ Therapeutic Exercise Treatment of Musculoskeletal System - Lower Back / Lower Extremity using Assistive, Adaptive, Supportive or Protective Equipment (ICD-10-PCS; 2017-09-19)
PROC: F07Z9FZ Gait Training/Functional Ambulation Treatment using Assistive, Adaptive, Supportive or Protective Equipment (ICD-10-PCS; 2017-09-19)
PROC: F08Z1FZ Dressing Techniques Treatment using Assistive, Adaptive, Supportive or Protective Equipment (ICD-10-PCS; 2017-09-19)
PROC: F08Z0FZ Bathing/Showering Techniques Treatment using Assistive, Adaptive, Supportive or Protective Equipment (ICD-10-PCS; 2017-09-19)
PROC: F07L7ZZ Manual Therapy Techniques Treatment of Musculoskeletal System - Lower Back / Lower Extremity (ICD-10-PCS; 2017-09-19)
PROC: 5A0955Z Assistance with Respiratory Ventilation, Greater than 96 Consecutive Hours (ICD-10-PCS; 2017-09-19)
DX: J90 Pleural effusion, not elsewhere classified (principal); I50.32 Chronic diastolic (congestive) heart failure; I11.0 Hypertensive heart disease with heart failure; E78.5 Hyperlipidemia, unspecified; J45.909 Unspecified asthma, uncomplicated; Z96.642 Presence of left artificial hip joint; M19.90 Unspecified osteoarthritis, unspecified site; J44.9 Chronic obstructive pulmonary disease, unspecified

== ENCOUNTER 2017-10-09 17:25 | Emergency (ER) | payer MEDICARE, MEDICAID ==
[2017-10-09 17:26] VITALS: BMI 31.4
[2017-10-09 17:33] VITALS: BP 158/92; PULSE 84; RESP 18; TEMP 97.2; O2SAT 99
--- NOTE | 2017-10-09 17:41 | ED PDOC ---
HPI: Skin/Bite Injury Time Seen by Provider: 10/09/17 17:34 Chief Complaint (Nursing): Abnormal Skin Integrity Chief Complaint (Provider): Rash History Per: Patient History/Exam Limitations: no limitations Onset/Duration Of Symptoms: Days (3) Current Symptoms Are (Timing): Still Present Additional Complaint(s): Patient is an 86 y/o female with no significant past medical history brought to the emergency department by EMS for an itchy rash to her right anterior lower leg ongoing for three days. Reports being evaluated by her PMD yesterday who prescribed an ammonium lactate lotion that she has been using along with silvadene with no significant improvement. Denies pain, fever, chills, cough, injuries, joint pain, blood thinner medication, or any other complaints. PCP: Dr. Martinez Hameed Past Medical History Reviewed: Historical Data, Nursing Documentation, Vital Signs Vital Signs: Last Vital Signs Temp 97.2 F L 10/09/17 17:31 Pulse 84 10/09/17 17:31 Resp 18 10/09/17 17:31 BP 158/92 H 10/09/17 17:31 Pulse Ox 99 10/09/17 19:47 - Medical History PMH: Anemia, Arthritis, Asthma, Bronchitis, COPD, Dementia, Depression, Diverticulitis, HTN, Hypercholesterolemia, Osteoporosis, Pneumonia Denies: Alzheimer's Disease, Anxiety, Atrial Fibrillation, Bipolar Disorder, CAD, Cardia Arrhythmia, CHF, Crohn's Disease, Emphysema, Fractures, Gastritis, Gall Bladder Disease, HIV, Hyperthyroidism, Hypothyroidism, Kidney Stones, Migraine, Mitral Valve Prolapse, Multiple Sclerosis, Pancreatitis, Paranoia, Parkinson's Disease, Peripheral Edema, Post Traumatic Stress Disorder, Pulmonary Embolism, Chronic Kidney Disease, Rheumatoid Arthritis, Schizophrenia , Seizures, Sickle Cell Disease, Sexually Transmitted Disease, Sleep Apnea, TIA - Surgical History Surgical History: Denies: Appendectomy, CABG, Carotid Endarterectomy, Cholecystectomy, Coronary Stent, Pacemaker, Tonsillectomy - Family History Family History: States: Unknown Family Hx - Home Medications Home Medications: Ambulatory Orders Medication Instructions Recorded Acetaminophen [Tylenol 325mg tab] 650 mg PO Q6 PRN #30 tab 09/30/17 Acetylcysteine 20% 2 ml INH RBID #1 vial 09/30/17 Albuterol 0.083% [Albuterol 0.083% 2.5 mg INH RQ4 PRN #1 vial 09/30/17 Inhal Carmen (2.5 mg/3 ml) UD] Bimatoprost [Lumigan] 1 drop BOTHEYES DAILY #1 bottle 09/30/17 Docusate [Colace] 200 mg PO DAILY #60 cap 09/30/17 Furosemide [Lasix] 20 mg PO QOTHERDAY #30 tab 09/30/17 Latanoprost 0.005% Opht [Xalatan 1 drop OU DAILY #1 bottle 09/30/17 Opht] Losartan [Cozaar] 100 mg PO DAILY #30 tab 09/30/17 Memantine [Namenda] 10 mg PO BID #60 tab 09/30/17 Metoprolol Succinate [Toprol XL] 50 mg PO DAILY #30 tab 09/30/17 Montelukast Sodium [Singulair] 10 mg PO DAILY #30 tablet 09/30/17 Nystatin/Triamcinolone [Mycolog 30 gm EXT TID #1 tube 09/30/17 Ointment] Pantoprazole [Protonix EC Tab] 40 mg PO DAILY #30 ect 09/30/17 Paroxetine HCl [Paxil] 20 mg PO DAILY #30 tablet 09/30/17 Pravastatin Sodium [Pravachol] 20 mg PO HS #30 tablet 09/30/17 Spironolactone [Aldactone] 12.5 mg PO DAILY #30 tab 09/30/17 Clotrimazole/Betamethasone 1 appl EXT BID #1 tube 10/09/17 [Lotrisone] - Allergies Allergies/Adverse Reactions: Allergies Allergy/AdvReac Type Severity Reaction Status Date / Time No Known Allergies Allergy Verified 10/09/17 17:30 Review of Systems ROS Statement: Except As Marked, All Systems Reviewed And Found Negative Constitutional: Negative for: Fever, Chills Cardiovascular: Negative for: Chest Pain Respiratory: Negative for: Cough Musculoskeletal: Negative for: Other (joint pain) Skin: Positive for: Rash (itchy rash on right lower leg) Physical Exam - Reviewed Nursing Documentation Reviewed: Yes Vital Signs Reviewed: Yes - Physical Exam Comments: GENERAL APPEARANCE: Patient is awake, alert, oriented x 3, in no acute distress. Skin: dry, erythematous rash on lateral aspect of right lower leg with mild petechiae surrounding the rash. Not warm, no tenderness to touch. Neurovascular function and sensation intact Pulmonary: lungs clear, no rhonchi, no wheezing. Cardiac: regular rate and rhythm, no murmur, no gallop. (+) distal pulse. Abdomen: soft, nontender. Extremities: no deformity, full range of motion, no tenderness. (+) distal sensation. NEURO AND PSYCH:~ Mental status as above; (-) focal findings. - Laboratory Results Result Diagrams: 10/09/17 18:35 10/09/17 18:35 - ECG O2 Sat by Pulse Oximetry: 99 (RA) Pulse Ox Interpretation: Normal Medical Decision Making Medical Decision Making: Time: 18:20 Initial impression: Rash on lower extremity Initial plan: CMP CBC Partial Thromboplastin PT/INR Reevaluation 19:20 On re-evaluation, patient is resting comfortably in bed and asking for medication to relieve the itchiness. Benadryl 25 PO was given. Lab results were reviewed. Normal WBC noted. Based on history, exam and diagnostic results plan will be for outpatient follow up. Patient is diagnosed with contact dermatitis vs. tinea infection, which was discussed with patient. Advised to follow up with primary care physician in 1-2 days without fail. Advised to take medication as prescribed. Return to the emergency room at any time for any new or worsening symptoms. Patient states she fully agrees with and understands discharge instructions. States that she agrees with the plan and disposition. Verbalized and repeated discharge instructions and plan. I have given the patient opportunity to ask any additional questions. ~ Scribe Attestation: Documented by Zoila Acevedo, acting as a scribe for DARIO Salinas. Provider Scribe Attestation: All medical record entries made by the Scribe were at my direction and personally dictated by me. I have reviewed the chart and agree that the record accurately reflects my personal performance of the history, physical exam, medical decision making, and the department course for this patient. I have also personally directed, reviewed, and agree with the discharge instructions and disposition. Disposition - Clinical Impression Clinical Impression: Rash - Patient ED Disposition Is Patient to be Admitted: No Counseled Patient/Family Regarding: Diagnosis, Need For Followup, Rx Given - Disposition Disposition: Routine/Home Disposition Time: 19:20 Condition: STABLE Additional Instructions: Thank you for letting us take care of you today. You were treated for rash, consider contact dermatitis versus fungal infection. The emergency medical care you received today was directed at your acute symptoms. If you were prescribed any medication, please fill it and take as directed. It may take several days for your symptoms to resolve. Return to the Emergency Department if your symptoms worsen, do not improve, or if you have any other problems. Please contact your doctor in 2 days for re-evaluation and follow up. Bring any paperwork you were given at discharge with you along with any medications you are taking to your follow up visit. Our treatment cannot replace ongoing medical care by a primary care provider (PCP) outside of the emergency department. Thank you for allowing the [facility] team to be part of your care today. Prescriptions: Clotrimazole/Betamethasone [Lotrisone] 1 appl EXT BID #1 tube Instructions: Acute Rash (ED), Dermatitis (ED) Forms: [employer] (Occitan) Print Language: HEBREW - PA / SPRING INSPECTOR / Resident Statement / has reviewed & agrees with the documentation as recorded.
[2017-10-09 18:47] LABS: BASO # 0.1 K/uL (0.0-0.2); BASO % 0.7 % (0.0-2.0); EOS # 0.3 K/uL (0.0-0.7); EOS % 3.4 % (0.0-4.0); HEMOGLOBIN 10.4 g/dL (12.0-16.0); LYMPH # 1.2 K/uL (1.0-4.3); LYMPH % 14.2 % (20.0-40.0); MEAN CELL VOLUME 78.9 fl (81.0-99.0); MEAN CORPUSCULAR HEMOGLOBIN 25.2 pg (27.0-31.0); MEAN CORPUSCULAR HGB CONC 31.9 g/dL (33.0-37.0); MEAN PLATELET VOLUME 7.9 fl (7.2-11.7); MONO # 0.6 K/uL (0.0-0.8); MONO % 6.7 % (0.0-10.0); NEUT # 6.1 K/uL (1.8-7.0); RBC 4.12 Mil/uL (3.80-5.20); RED CELL DISTRIBUTION WIDTH 16.5 % (11.5-14.5); WHITE BLOOD COUNT 8.2 K/uL (4.8-10.8)
[2017-10-09 19:04] LABS: PARTIAL THROMBOPLASTIN TIME 31.7 Seconds (25.6-37.1); PROTHROMBIN TIME 11.4 Seconds (9.8-13.1)
[2017-10-09 19:07] LABS: ALB/GLOB RATIO 1.1 (1.0-2.1); ALBUMIN 3.8 g/dL (3.5-5.0); CALCIUM 9.3 mg/dL (8.4-10.2)
== END 2017-10-09 20:08 | disposition home or self-care (01) ==
LOC: H.ER 17:25
DX: R23.3 Spontaneous ecchymoses (principal); R21 Rash and other nonspecific skin eruption; F03.90 Unspecified dementia, unspecified severity, without behavioral disturbance, psychotic disturbance, mood disturbance, and anxiety; Z86.59 Personal history of other mental and behavioral disorders; I10 Essential (primary) hypertension; M81.0 Age-related osteoporosis without current pathological fracture; E78.00 Pure hypercholesterolemia, unspecified; J44.9 Chronic obstructive pulmonary disease, unspecified

== ENCOUNTER 2017-10-21 18:44 | Inpatient (IN) | payer MEDICARE, MEDICAID ==
[2017-10-21 18:44] VITALS: BMI 31.4
[2017-10-21] MEDS ORDERED: DiphenhydrAMINE 50 mg/ml Inj IVP STA (19:15)
[2017-10-21] MEDS ORDERED: DiphenhydrAMINE 50 mg/ml Inj ONE (19:23)
--- NOTE | 2017-10-21 19:39 | ED PDOC ---
HPI: Skin/Bite Injury Time Seen by Provider: 10/21/17 18:58 Chief Complaint (Nursing): Abnormal Skin Integrity Chief Complaint (Provider): Rash History Per: Patient History/Exam Limitations: clinical condition (dementia) Onset/Duration Of Symptoms: Days (x1) Additional Complaint(s): Patient is an 86 year old female who presents complaining of rash to the left leg, for 1 day. She denies using any creams or mediations for symptom relief. She denies fever or trauma. History may be unreliable due to dementia. Seen here 2 weeks ago for the same, and was prescribed an ointment and medication. Patient reports she does not remember this. Also states she does not take any daily medications, however chart review demonstrates patient has multiple medical conditions requiring medication. PMD: Dr. Martinez Hameed Past Medical History Reviewed: Historical Data, Nursing Documentation, Vital Signs Vital Signs: Last Vital Signs Temp 98.0 F 10/21/17 21:35 Pulse 62 10/21/17 21:35 Resp 18 10/21/17 21:35 BP 120/54 L 10/21/17 21:35 Pulse Ox 98 10/21/17 21:35 - Medical History PMH: Anemia, Arthritis, Asthma, Bronchitis, COPD, Dementia, Depression, Diverticulitis, HTN, Hypercholesterolemia, Osteoporosis, Pneumonia Denies: Alzheimer's Disease, Anxiety, Atrial Fibrillation, Bipolar Disorder, CAD, Cardia Arrhythmia, CHF, Crohn's Disease, Emphysema, Fractures, Gastritis, Gall Bladder Disease, HIV, Hyperthyroidism, Hypothyroidism, Kidney Stones, Migraine, Mitral Valve Prolapse, Multiple Sclerosis, Pancreatitis, Paranoia, Parkinson's Disease, Peripheral Edema, Post Traumatic Stress Disorder, Pulmonary Embolism, Chronic Kidney Disease, Rheumatoid Arthritis, Schizophrenia , Seizures, Sickle Cell Disease, Sexually Transmitted Disease, Sleep Apnea, TIA - Surgical History Surgical History: Denies: Appendectomy, CABG, Carotid Endarterectomy, Cholecystectomy, Coronary Stent, Pacemaker, Tonsillectomy - Family History Family History: States: Unknown Family Hx - Home Medications Home Medications: Ambulatory Orders Medication Instructions Recorded Albuterol 0.083% [Albuterol 0.083% 2.5 mg INH RQ4 PRN #1 vial 09/30/17 Inhal Carmen (2.5 mg/3 ml) UD] Bimatoprost [Lumigan] 1 drop BOTHEYES DAILY #1 bottle 09/30/17 Losartan [Cozaar] 100 mg PO DAILY #30 tab 09/30/17 Memantine [Namenda] 10 mg PO BID #60 tab 09/30/17 Metoprolol Succinate [Toprol XL] 50 mg PO DAILY #30 tab 09/30/17 Montelukast Sodium [Singulair] 10 mg PO DAILY #30 tablet 09/30/17 Paroxetine HCl [Paxil] 20 mg PO DAILY #30 tablet 09/30/17 Pravastatin Sodium [Pravachol] 20 mg PO HS #30 tablet 09/30/17 Cholecalciferol [Vitamin D 1000 IU] 50,000 intlu PO QWK 10/21/17 Omeprazole [Omeprazole] 20 mg PO HS 10/21/17 - Allergies Allergies/Adverse Reactions: Allergies Allergy/AdvReac Type Severity Reaction Status Date / Time No Known Allergies Allergy Verified 10/21/17 21:03 Review of Systems ROS Statement: Except As Marked, All Systems Reviewed And Found Negative (as per HPI, but may be unreliable) Constitutional: Negative for: Fever, Chills Skin: Positive for: Rash (to left leg) Physical Exam - Reviewed Nursing Documentation Reviewed: Yes Vital Signs Reviewed: Yes - Laboratory Results Result Diagrams: 10/21/17 19:49 10/21/17 19:49 - ECG O2 Sat by Pulse Oximetry: 99 (RA) Pulse Ox Interpretation: Normal Medical Decision Making Medical Decision Making: Initial Impression: Rash to left lower leg Differential includes but is not limited to: dermatitis, cellulitis, CHF, dementia, and allergic dermatitis Time: 19:15 Initial Plan: * CMP * pro BNP * Lactic Acid * Magnesium * Phosphorous * Troponin I * CBC * Chest x-ray * Blood culture * Benadryl 25mg IVP * Reevaluation Chest x-ray: viewed by me, (+) infiltrates and (+) right pleural effusion, not seen on previous x-ray in September. Time: 21:[address] Rand, patient will be admitted inpatient for cellulitis, pneumonia, and pleural effusion Scribe Attestation: Documented by Valorie Brooks, acting as a scribe for Niyah Miranda MD Provider Scribe Attestation: All medical record entries made by the Scribe were at my direction and personally dictated by me. I have reviewed the chart and agree that the record accurately reflects my personal performance of the history, physical exam, medical decision making, and the department course for this patient. I have also personally directed, reviewed, and agree with the discharge instructions and disposition. Disposition - Patient ED Disposition Is Patient to be Admitted: Yes Counseled Patient/Family Regarding: Studies Performed - Disposition Disposition Time: 21:06 Forms: [employer] (Sudanese) - Pt Status Changed To: Hospital Disposition Of: Inpatient - Admit Certification Admit to Inpatient:: After my assessment, the patient will require hospitalization for at least two midnights. This is because of the severity of symptoms shown, intensity of services needed, and/or the medical risk in this patient being treated as an outpatient.
[2017-10-21 19:55] LABS: BASO # 0.1 K/uL (0.0-0.2); BASO % 0.9 % (0.0-2.0); EOS # 0.2 K/uL (0.0-0.7); EOS % 1.9 % (0.0-4.0); HEMOGLOBIN 9.6 g/dL (12.0-16.0); LYMPH # 1.4 K/uL (1.0-4.3); LYMPH % 17.1 % (20.0-40.0); MEAN CELL VOLUME 78.9 fl (81.0-99.0); MEAN CORPUSCULAR HEMOGLOBIN 25.1 pg (27.0-31.0); MEAN CORPUSCULAR HGB CONC 31.8 g/dL (33.0-37.0); MEAN PLATELET VOLUME 8.5 fl (7.2-11.7); MONO # 0.5 K/uL (0.0-0.8); MONO % 6.3 % (0.0-10.0); NEUT # 6.2 K/uL (1.8-7.0); NEUT % 73.8 % (50.0-75.0); RBC 3.84 Mil/uL (3.80-5.20); RED CELL DISTRIBUTION WIDTH 16.4 % (11.5-14.5); WHITE BLOOD COUNT 8.4 K/uL (4.8-10.8)
[2017-10-21 20:40] LABS: ALB/GLOB RATIO 1.1 (1.0-2.1); ALBUMIN 3.5 g/dL (3.5-5.0); ALT/SGPT 32 U/L (9-52); AST/SGOT 25 U/L (14-36); B-TYPE NATRIURETIC PEPTIDE 1980 pg/ml (0-900); BLOOD UREA NITROGEN 23 mg/dl (7-17); CALCIUM 9.1 mg/dL (8.4-10.2); GFR AFRICAN-AMERICAN > 60; GFR NON-AFRICAN AMERICAN > 60; MAGNESIUM 2.1 MG/DL (1.6-2.3)
[2017-10-21] MEDS ORDERED: levoFLOXacin 750 mg in D5W 150 ML BAG IVPB STA (21:05)
[2017-10-21] MEDS ORDERED: Piperacillin/Tazobact 3.375 gm Inj IVPB ONE (21:18)
[2017-10-21] MEDS ORDERED: Piperacillin/Tazobact 3.375 GM in Sodium Chloride 0.9% 100 ML IVPB SCH (21:30)
[2017-10-21 21:47] LABS: SQUAMOUS EPITHIAL 2 /hpf (0-5); URINE BACTERIA RARE (<OCC); URINE BILIRUBIN NEGATIVE (NEGATIVE); URINE BLOOD SMALL (NEGATIVE); URINE CLARITY CLOUDY (Clear); URINE COLOR YELLOW (YELLOW); URINE GLUCOSE (UA) NEG (Normal); URINE HYALINE CAST 0-2 /hpf (0-2); URINE LEUKOCYTE ESTERASE MOD Leu/uL (Negative); URINE NITRATE NEGATIVE (NEGATIVE); URINE PROTEIN NEGATIVE (NEGATIVE)
[2017-10-22] MEDS ORDERED: levoFLOXacin 750 mg in D5W 750 MG/150 ML BAG IVPB ONE (01:15)
[2017-10-22] MEDS: levoFLOXacin 750 mg in D5W 750 MG/150 ML BAG IVPB SCH (08:55)
[2017-10-22] MEDS: Latanoprost 0.005% Opht SOUTION OU SCH (09:00)
[2017-10-22] MEDS ORDERED: Albuterol 0.083% Inhal Sol (2.5 mg/3 mL) UD INH PRN (09:00)
[2017-10-22] MEDS ORDERED: Enoxaparin 30 mg Syringe SC SCH (09:51)
[2017-10-22] MEDS ORDERED: Enoxaparin 40 mg Syringe SC SCH (10:00)
--- NOTE | 2017-10-22 10:01 | CP.PCM.HP ---
<Diana Casey - Last Filed: 10/22/17 15:12> History of Present Illness - History of Present Illness History of Present Illness: Information obtained via chart, patient is a poor historian secondary to dementia 86 YO F w/ PMH of HTN, HLD, was admitted after patient came in with a complaint of a rash over her left leg for which she was seen at [facility] previously. She was given medication at that time , but does not recall using them. Patient was admitted here on month ago and was offered VATS procedure, however patients POA refused to sign consent PMD Dr. Henriquez Present on Admission - Present on Admission Any Indicators Present on Admission: No Past Patient History - Past Medical History & Family History Past Medical History?: Yes - Past Social History Smoking Status: Never Smoked - CARDIAC Hx Cardiac Disorders: Yes Hx Atrial Fibrillation: No Hx Cardia Arrhythmia: No Hx Congestive Heart Failure: No Hx Hypercholesterolemia: Yes Hx Hypertension: Yes Hx Mitral Valve Prolapse: No Hx Pacemaker: No Hx Peripheral Edema: No - PULMONARY Hx Respiratory Disorders: Yes Hx Asthma: Yes Hx Bronchitis: Yes Hx Chronic Obstructive Pulmonary Disease (COPD): Yes Hx Emphysema: No Hx Pneumonia: Yes Hx Pulmonary Embolism: No Hx Sleep Apnea: No - NEUROLOGICAL Hx Neurological Disorder: Yes Hx Alzheimer's Disease: No Hx Dementia: Yes Hx Migraine: No Hx Multiple Sclerosis: No Hx Parkinson's Disease: No Hx Seizures: No Hx Transient Ischemic Attacks (TIA): No - HEENT Hx HEENT Problems: No - RENAL Hx Chronic Kidney Disease: No Other/Comment: As per patient: kidney sx - ENDOCRINE/METABOLIC Hx Endocrine Disorders: No Hx Hyperthyroidism: No Hx Hypothyroidism: No - HEMATOLOGICAL/ONCOLOGICAL Hx Blood Disorders: Yes Hx Anemia: Yes Hx Human Immunodeficiency Virus (HIV): No Hx Sickle Cell Disease: No - INTEGUMENTARY Hx Dermatological Problems: No - MUSCULOSKELETAL/RHEUMATOLOGICAL Hx Musculoskeletal Disorders: Yes Hx Arthritis: Yes Hx Falls: No Hx Fractures: No Hx Osteoarthritis: Yes Hx Osteoporosis: Yes Hx Rheumatoid Arthritis: No - GASTROINTESTINAL Hx Crohn's Disease: No Hx Diverticulitis: Yes Hx Gall Bladder Disease: No Hx Gastritis: No Hx Pancreatitis: No - GENITOURINARY/GYNECOLOGICAL Hx Genitourinary Disorders: No Hx Sexually Transmitted Disorders: No - PSYCHIATRIC Hx Psychophysiologic Disorder: Yes Hx Anxiety: No Hx Bipolar Disorder: No Hx Depression: Yes Hx Paranoia: No Hx Post Traumatic Stress Disorder: No Hx Schizophrenia: No Hx Substance Use: No - SURGICAL HISTORY Hx Surgeries: Yes Hx Appendectomy: No Hx Carotid Endarterectomy: No Hx Cholecystectomy: No Hx Coronary Artery Bypass Graft: No Hx Coronary Stent: No Hx Hysterectomy: Yes Hx Tonsillectomy: No Other/Comment: Left knee sx; left hip replacement - ANESTHESIA Hx Anesthesia: Yes Hx Anesthesia Reactions: No Hx Malignant Hyperthermia: No Meds Allergies/Adverse Reactions: Allergies Allergy/AdvReac Type Severity Reaction Status Date / Time No Known Allergies Allergy Verified 10/21/17 21:03 Physical Exam - Constitutional Appears: No Acute Distress - Respiratory Exam Respiratory Exam: Rales (noted at right base), NORMAL BREATHING PATTERN. absent : Wheezes - Cardiovascular Exam Cardiovascular Exam: REGULAR RHYTHM, +S1, +S2 - GI/Abdominal Exam GI & Abdominal Exam: Normal Bowel Sounds, Soft. absent: Tenderness - Extremities Exam Extremities exam: Negative for: calf tenderness Additional comments: erythema noted on anterior surface of left tibia - Neurological Exam Neurological exam: Alert, CN II-XII Intact Additional comments: Baseline dementia Results - Vital Signs Recent Vital Signs: Last Vital Signs Temp 98.1 F 10/22/17 08:07 Pulse 64 10/22/17 08:58 Resp 18 10/22/17 08:07 BP 133/69 10/22/17 08:58 Pulse Ox 97 10/22/17 08:07 - Labs Result Diagrams: 10/21/17 19:49 10/21/17 19:49 Labs: Laboratory Results - last 24 hr 10/21/17 10/21/17 10/21/17 19:49 19:49 19:49 WBC 8.4 RBC 3.84 Hgb 9.6 L Hct 30.3 L MCV 78.9 L MCH 25.1 L MCHC 31.8 L RDW 16.4 H Plt Count 223 MPV 8.5 Neut % (Auto) 73.8 Lymph % (Auto) 17.1 L Marshall % (Auto) 6.3 Eos % (Auto) 1.9 Baso % (Auto) 0.9 Neut # (Auto) 6.2 Lymph # (Auto) 1.4 Marshall # (Auto) 0.5 Eos # (Auto) 0.2 Baso # (Auto) 0.1 Sodium 140 Potassium 4.5 Chloride 100 Carbon Dioxide 32 H Anion Gap 13 BUN 23 H Creatinine 0.8 Est GFR ( Amer) > 60 Est GFR (Non-Af Amer) > 60 Random Glucose 129 H Lactic Acid 2.2 H Calcium 9.1 Phosphorus 3.5 Magnesium 2.1 Total Bilirubin 0.4 AST 25 ALT 32 Alkaline Phosphatase 69 Troponin I < 0.0120 NT-Pro-B Natriuret Pep 1980 H Total Protein 6.6 Albumin 3.5 Globulin 3.1 Albumin/Globulin Ratio 1.1 Urine Color Urine Clarity Urine pH Ur Specific [place] Urine Protein Urine Glucose (UA) Urine Ketones Urine Blood Urine Nitrate Urine Bilirubin Urine Urobilinogen Ur Leukocyte Esterase Urine RBC (Auto) Urine Microscopic WBC Ur Squamous Epith Cells Urine Bacteria Hyaline Casts 10/21/17 21:30 WBC RBC Hgb Hct MCV MCH MCHC RDW Plt Count MPV Neut % (Auto) Lymph % (Auto) Marshall % (Auto) Eos % (Auto) Baso % (Auto) Neut # (Auto) Lymph # (Auto) Marshall # (Auto) Eos # (Auto) Baso # (Auto) Sodium Potassium Chloride Carbon Dioxide Anion Gap BUN Creatinine Est GFR ( Amer) Est GFR (Non-Af Amer) Random Glucose Lactic Acid Calcium Phosphorus Magnesium Total Bilirubin AST ALT Alkaline Phosphatase Troponin I NT-Pro-B Natriuret Pep Total Protein Albumin Globulin Albumin/Globulin Ratio Urine Color Yellow Urine Clarity Cloudy Urine pH 6.0 Ur Specific [place] 1.017 Urine Protein Negative Urine Glucose (UA) Neg Urine Ketones Negative Urine Blood Small Urine Nitrate Negative Urine Bilirubin Negative Urine Urobilinogen 2.0 H Ur Leukocyte Esterase Mod Urine RBC (Auto) 8 H Urine Microscopic WBC 19 H Ur Squamous Epith Cells 2 Urine Bacteria Rare Hyaline Casts 0-2 Assessment & Plan - Assessment and Plan (Free Text) Assessment: 86 Y/O F w/ h/o reccurent pleural effusions presents with a rash to the left leg and is found to have pneumonia and right sided pleural effusion. 1) Diastolic Heart Failure - EF: preserved EF of 75 % - right sided pleural efusion - BNP: 1979 - Lasix 20 mg IV BID 2) Hospital acquired bacterial pneumonia - No leucocytosis noted - Right sided infiltrate - Levofloxacin - Vanco - Zosyn 3) Rash over left lower leg: Possibly Cellulitis - Vanocmycin - clotrimazole - Duplex lower extremities 4) Alzhiemers C/W home meds: Memantine 5) DVT prophylaxis - Lovenox 40 SC <Ariel Gaviria - Last Filed: 10/26/17 11:16> Results - Vital Signs Recent Vital Signs: Last Vital Signs Temp 98.3 F 10/26/17 07:59 Pulse 74 10/26/17 08:37 Resp 20 10/26/17 07:59 BP 112/76 10/26/17 08:37 Pulse Ox 100 10/26/17 07:59 - Labs Result Diagrams: 10/26/17 05:50 10/24/17 06:05 Labs: Laboratory Results - last 24 hr 10/26/17 05:50 WBC 7.0 RBC 3.45 L Hgb 8.7 L Hct 26.9 L MCV 78.1 L MCH 25.2 L MCHC 32.3 L RDW 16.3 H Plt Count 184 Assessment & Plan - Assessment and Plan (Free Text) Plan: I was present during the evaluation and discussed with Dr Casey re plans of care and tx. Ariel Gaviria M.D.
[2017-10-22] MEDS: Piperacillin/Tazobact 3.375 GM in Sodium Chloride 0.9% 100 ML IVPB SCH ×3 (10:46→21:31)
[2017-10-22] MEDS: Metoprolol Succinate 50 mg XL Tab PO SCH (10:48)
[2017-10-22] MEDS: Enoxaparin 40 mg Syringe SC SCH (10:52)
--- NOTE | 2017-10-22 12:56 | RAD ---
HISTORY: chf COMPARISON: 09/22/2017 chest x-ray. 09/24/2017 chest without contrast FINDINGS: LUNGS: The right inferolateral pleural parenchymal opacity -compatible with right pleural effusion and compressive right inferolateral atelectasis is similar-appearing for left hemithorax clear PLEURA: Right pleural effusion with right inferolateral blending pleural-parenchymal opacity -as referenced above. No pneumothorax CARDIOVASCULAR: Mild cardiomegaly-similar. Central pulmonary vasculature top-normal OSSEOUS STRUCTURES: Thoracic spondylosis. Bilateral shoulder arthrosis VISUALIZED UPPER ABDOMEN: Normal. OTHER FINDINGS: None. IMPRESSION: Right inferolateral pleural parenchymal opacity and compatible with right pleural effusion and compressive atelectasis -similar-appearing. No interval pathology noted
--- NOTE | 2017-10-22 15:56 | US ---
HISTORY: swelling pain redness . PRIORS: None. FINDINGS: 2-D, color and duplex Doppler analysis of the lower extremity venous circulation using routine protocol from the femoral veins through the popliteal veins. Venous compressibility: Normal. Flow and augmentation patterns: Normal. Visualized veins upper third of calf: Normal. Martinez cyst: None. IMPRESSION: No sonographic or Doppler evidence for DVT in left lower extremity.
--- NOTE | 2017-10-22 17:01 | CP.PCM.PN ---
Subjective - Date & Time of Evaluation Date of Evaluation: 10/22/17 Time of Evaluation: 17:00 - Subjective Subjective: I D NOTE PATIENT EXAMINED ,CHART REVIEWED HAVE ADDED DIFLUCAN WILL CONSIDER CHANGE TO CLINDAMYCIN FROMVANCOMYCIN POSSIBLY TOMORROW Objective - Vital Signs/Intake and Output Vital Signs (last 24 hours): Temp Pulse Resp BP Pulse Ox 97.9 F 61 20 95/54 L 95 10/22/17 16:03 10/22/17 16:03 10/22/17 16:03 10/22/17 16:43 10/22/17 16:03 - Medications Medications: Current Medications Albuterol Sulfate (Albuterol 0.083% Inhal Carmen (2.5 Mg/3 Ml) Ud) 2.5 mg INH RQ4 PRN PRN Reason: Shortness of Breath Clotrimazole (Lotrimin 1% Cream) 1 applic TOP BID [facility] Last Admin: 10/22/17 16:43 Dose: 1 applic Enoxaparin Sodium (Lovenox) 40 mg SC DAILY [facility] PRN Reason: Protocol Last Admin: 10/22/17 10:52 Dose: 40 mg Ergocalciferol (Drisdol 50,000 Intl Units Cap) 1 cap PO QWK [facility] Furosemide (Lasix) 20 mg IVP BID [facility] Last Admin: 10/22/17 16:43 Dose: Not Given Piperacillin Sod/Tazobactam (Sod 3.375 gm/ Sodium Chloride) 100 mls @ 100 mls/ hr IVPB STAT [facility] PRN Reason: Protocol Last Admin: 10/21/17 21:22 Dose: 100 mls/hr Levofloxacin/Dextrose (Levaquin 750mg) 750 mg in 150 mls @ 100 mls/hr IVPB DAILY [facility] PRN Reason: Protocol Last Admin: 10/22/17 08:55 Dose: 100 mls/hr Vancomycin HCl 1 gm/ Sodium (Chloride) 250 mls @ 166.667 mls/hr IVPB DAILY [facility] PRN Reason: Protocol Last Admin: 10/22/17 08:57 Dose: 166.667 mls/hr Piperacillin Sod/Tazobactam (Sod 3.375 gm/ Sodium Chloride) 100 mls @ 100 mls/ hr IVPB Q6 [facility] PRN Reason: Protocol Last Admin: 10/22/17 16:42 Dose: 100 mls/hr Fluconazole (Diflucan Iv 100 Mg/50 Ml Ns) 50 mls @ 50 mls/hr IVPB DAILY [facility] PRN Reason: Protocol Latanoprost (Xalatan Opht) 1 drop OU DAILY [facility] Last Admin: 10/22/17 09:00 Dose: 1 drop Losartan Potassium (Cozaar) 100 mg PO DAILY [facility] Last Admin: 10/22/17 08:58 Dose: 100 mg Memantine (Namenda) 10 mg PO BID [facility] Last Admin: 10/22/17 16:43 Dose: 10 mg Metoprolol Succinate (Toprol Xl) 50 mg PO DAILY [facility] Last Admin: 10/22/17 10:48 Dose: 50 mg Montelukast Sodium (Singulair) 10 mg PO DAILY [facility] Last Admin: 10/22/17 08:59 Dose: 10 mg Pantoprazole Sodium (Protonix Ec Tab) 40 mg PO [facility] Paroxetine HCl (Paxil) 20 mg PO DAILY [facility] Last Admin: 10/22/17 10:49 Dose: 20 mg Pravastatin Sodium (Pravachol) 20 mg PO HS [facility] - Labs Labs: 10/21/17 19:49 10/21/17 19:49
[2017-10-22] MEDS: Pantoprazole 40 mg EC Tab PO SCH (21:31)
[2017-10-22] MEDS: Pravastatin Sodium 20 MG TAB PO SCH (21:31)
[2017-10-22] MEDS: Fluconazole IV 100mg/50 ml NS 50 ML IVPB SCH (22:03)
[2017-10-23] MEDS: Piperacillin/Tazobact 3.375 GM in Sodium Chloride 0.9% 100 ML IVPB SCH ×4 (04:51→21:39)
[2017-10-23 07:42] LABS: CALCIUM 8.9 mg/dL (8.4-10.2)
--- NOTE | 2017-10-23 09:26 | PQF GENQUE ---
This form is a permanent part of the medical record 10/23/17 Dr. Gaviria, Please specify the acuity of heart failure in your progress notes: ACUITY: Acute Chronic Acute on chronic Other (please specify) Clinically unable to determine Unknown H&P states Diastolic Heart Failure. BMP 1979, CXR: R pleural effusion. Treated with Lasix IV BID. Clarification of your documentation is requested to better reflect the severity of illness and intensity of treatment of your patient. Indicators present [] Specify: [] [] Specify: [] [] Specify: [] [] Specify: [] Location in the medical record that reflects the above clinical findings: [] Treatment Provided: [] PHYSICIAN'S RESPONSE Based on your medical judgment of the clinical indicators outlined above please clarify the following: [] Practitioner response [] If unable to determine, please check the box, sign and date. Present On Admission (POA) Indicator: [] Present at the time of admission [] Not present at the time of admission [] Clinically Undetermined In responding to this query, please exercise your independent professional judgment. The fact that a question is asked does not imply that any particular answer is desired or expected. Thank you for your clarification on this documentation. If you have any questions please call:ext [phone] * Thank you, Renetta Casey RN [facility]
--- NOTE | 2017-10-23 09:34 | PQF GENQUE ---
This form is a permanent part of the medical record 10/23/17 Dr. Gaviria, Please clarify if there is an associated diagnosis or not to go along with the BUN and Creatinine results. Admitted with Diastolic CHF, Hospital Acquired Bacterial Pneumonia and possibly Cellulitis of the LLE. Treated with IV Lasix and IVAB. Bun 23--> 25, Creatinine 0.8--> 1.3 GFR >60 --> 39 Clarification of your documentation is requested to better reflect the severity of illness and intensity of treatment of your patient. Indicators present [] Specify: [] [] Specify: [] [] Specify: [] [] Specify: [] Location in the medical record that reflects the above clinical findings: [] Treatment Provided: [] PHYSICIAN'S RESPONSE Based on your medical judgment of the clinical indicators outlined above please clarify the following: [] Practitioner response [] If unable to determine, please check the box, sign and date. Present On Admission (POA) Indicator: [] Present at the time of admission [] Not present at the time of admission [] Clinically Undetermined In responding to this query, please exercise your independent professional judgment. The fact that a question is asked does not imply that any particular answer is desired or expected. Thank you for your clarification on this documentation. If you have any questions please call:ext [phone] * Thank you, Renetta Casey RN [facility]
[2017-10-23] MEDS: Fluconazole IV 100mg/50 ml NS 50 ML IVPB SCH (09:49)
[2017-10-23] MEDS: Metoprolol Succinate 50 mg XL Tab PO SCH (09:50)
[2017-10-23] MEDS: Enoxaparin 40 mg Syringe SC SCH (09:53)
[2017-10-23] MEDS: Ergocalciferol 50,000 Intl Units Cap PO SCH (09:53)
[2017-10-23] MEDS: Latanoprost 0.005% Opht SOUTION OU SCH (09:54)
[2017-10-23] MEDS: levoFLOXacin 750 mg in D5W 750 MG/150 ML BAG IVPB SCH ×2 (09:55→14:16)
--- NOTE | 2017-10-23 13:58 | CP.PCM.CON ---
History of Present Illness - History of Present Illness History of Present Illness: This 86-year-old Turkmen-speaking female who is well known to me from previous admissions to the hospital as well as the outpatient setting comes in now to the emergency room with apparent cellulitis of the lower extremity. She has been placed on antibiotic therapy with significant improvement as per the medical record. Of note on her chest x-ray is recurrence of a right pleural effusion which has been present in the past. She has undergone thoracentesis in the past as well as flexible bronchoscopy on her recent admission. Pleural fluid analysis revealed transudate of characteristics and the bronchoscopy did not show any obstructing lesion. Pleural fluid cytology as well as bronchial washings and brushings were all negative for malignancy. It was felt that the patient may indeed have some degree of aspiration on a chronic basis with right lower lobe pneumonitis/volume loss. This pleural effusion has been accumulating for approximately one year now and has been worked up on more than one occasion. At the present time she offers no complaints of coughing or shortness of breath and a chest x-ray does show small to moderate effusion. Past Patient History - Past Medical History & Family History Past Medical History?: Yes - Past Social History Smoking Status: Never Smoked Chewing Tobacco Use: No Cigar Use: No Alcohol: None Drugs: Denies - CARDIAC Hx Cardia Arrhythmia: Yes (9 beat V. tach on her last admission.) Hx Congestive Heart Failure: Yes (diastolic) Hx Hypercholesterolemia: Yes Hx Hypertension: Yes - PULMONARY Hx Asthma: Yes Hx Bronchitis: Yes Hx Chronic Obstructive Pulmonary Disease (COPD): Yes Hx Emphysema: No Hx Pneumonia: Yes Hx Pulmonary Embolism: No - NEUROLOGICAL Hx Neurological Disorder: Yes Hx Dementia: Yes - HEENT Hx HEENT Problems: No - RENAL Hx Chronic Kidney Disease: No Other/Comment: As per patient: kidney sx - ENDOCRINE/METABOLIC Hx Endocrine Disorders: No - HEMATOLOGICAL/ONCOLOGICAL Hx Anemia: Yes Hx Human Immunodeficiency Virus (HIV): No - INTEGUMENTARY Hx Dermatological Problems: No - MUSCULOSKELETAL/RHEUMATOLOGICAL Hx Arthritis: Yes Hx Osteoarthritis: Yes Hx Osteoporosis: Yes - GASTROINTESTINAL Hx Diverticulitis: Yes - GENITOURINARY/GYNECOLOGICAL Hx Genitourinary Disorders: No - PSYCHIATRIC Hx Psychophysiologic Disorder: Yes Hx Depression: Yes - SURGICAL HISTORY Hx Surgeries: Yes Hx Hysterectomy: Yes Hx Orthopedic Surgery: Yes Other/Comment: Left knee sx; left hip replacement - ANESTHESIA Hx Anesthesia: Yes Hx Anesthesia Reactions: No Hx Malignant Hyperthermia: No Meds Allergies/Adverse Reactions: Allergies Allergy/AdvReac Type Severity Reaction Status Date / Time No Known Allergies Allergy Verified 10/21/17 21:03 - Medications Medications: Current Medications Albuterol Sulfate (Albuterol 0.083% Inhal Carmen (2.5 Mg/3 Ml) Ud) 2.5 mg INH RQ4 PRN PRN Reason: Shortness of Breath Clotrimazole (Lotrimin 1% Cream) 1 applic TOP BID [facility] Last Admin: 10/23/17 09:53 Dose: 1 applic Enoxaparin Sodium (Lovenox) 30 mg SC DAILY [facility] PRN Reason: Protocol Ergocalciferol (Drisdol 50,000 Intl Units Cap) 1 cap PO QWK [facility] Last Admin: 10/23/17 09:53 Dose: 1 cap Furosemide (Lasix) 20 mg IVP DAILY [facility] Vancomycin HCl 1 gm/ Sodium (Chloride) 250 mls @ 166.667 mls/hr IVPB DAILY [facility] PRN Reason: Protocol Last Admin: 10/23/17 09:58 Dose: 166.667 mls/hr Piperacillin Sod/Tazobactam (Sod 3.375 gm/ Sodium Chloride) 100 mls @ 100 mls/ hr IVPB Q6 [facility] PRN Reason: Protocol Last Admin: 10/23/17 04:51 Dose: 100 mls/hr Fluconazole (Diflucan Iv 100 Mg/50 Ml Ns) 50 mls @ 50 mls/hr IVPB DAILY [facility] PRN Reason: Protocol Last Admin: 10/23/17 09:49 Dose: 50 mls/hr Levofloxacin/Dextrose (Levaquin 750mg) 750 mg in 150 mls @ 100 mls/hr IVPB Q48H [facility] PRN Reason: Protocol Latanoprost (Xalatan Opht) 1 drop OU DAILY [facility] Last Admin: 10/23/17 09:54 Dose: 1 drop Losartan Potassium (Cozaar) 100 mg PO DAILY [facility] Last Admin: 10/23/17 09:52 Dose: 100 mg Memantine (Namenda) 10 mg PO BID [facility] Last Admin: 10/23/17 09:52 Dose: 10 mg Metoprolol Succinate (Toprol Xl) 50 mg PO DAILY [facility] Last Admin: 10/23/17 09:50 Dose: 50 mg Montelukast Sodium (Singulair) 10 mg PO DAILY [facility] Last Admin: 10/23/17 09:53 Dose: 10 mg Pantoprazole Sodium (Protonix Ec Tab) 40 mg PO [facility] Last Admin: 10/22/17 21:31 Dose: 40 mg Paroxetine HCl (Paxil) 20 mg PO DAILY [facility] Last Admin: 10/23/17 09:53 Dose: 20 mg Pravastatin Sodium (Pravachol) 20 mg PO [facility] Last Admin: 10/22/17 21:31 Dose: 20 mg Physical Exam - Additional Findings Additional findings: Well-nourished, well-developed female lying in bed comfortably, in no acute distress. Cooperative with physical examination. Residual erythema and increased warmth in the left lower extremity is noted. Right lower extreme knee appears normal. No calf tenderness or palpable venous cords. No cyanosis. Neck is supple and trachea is midline. No visible neck vein distention. No carotid bruit. No palpable thyromegaly. Dullness at the right base on percussion is noted. Breath sounds are present bilaterally, diminished at the right base. Few scattered rhonchi are heard in both lungs. No audible wheezing. Few dry rales in the lower lobes. Bronchial breathing or egophony. Heart sounds are somewhat diminished and the rhythm is regular. The abdomen is soft and nontender with normal bowel sounds. Results - Vital Signs Recent Vital Signs: Last Vital Signs Temp 98.1 F 10/23/17 12:45 Pulse 56 L 10/23/17 12:45 Resp 18 10/23/17 12:45 BP 101/51 L 10/23/17 12:45 Pulse Ox 96 10/23/17 12:45 - Labs Result Diagrams: 10/21/17 19:49 10/23/17 05:53 Labs: Laboratory Results - last 24 hr 10/22/17 10/23/17 10/23/17 17:15 05:53 08:00 Sodium 141 Potassium 4.4 Chloride 103 Carbon Dioxide 32 H Anion Gap 10 BUN 25 H Creatinine 1.3 H Est GFR ( Amer) 47 Est GFR (Non-Af Amer) 39 Random Glucose 85 Calcium 8.9 Vancomycin Trough 19.8 H 14.2 H Influenza Typ A,B (EIA) 10/23/17 12:43 Sodium Potassium Chloride Carbon Dioxide Anion Gap BUN Creatinine Est GFR ( Amer) Est GFR (Non-Af Amer) Random Glucose Calcium Vancomycin Trough Influenza Typ A,B (EIA) Negative for flu a/b Assessment & Plan (1) Asthma Status: Chronic Priority: High Comment: asthma/COPD overlap syndrome. (2) Diastolic CHF Status: Chronic Priority: High (3) Pleural effusion Status: Chronic Priority: Medium
--- NOTE | 2017-10-23 14:04 | CP.PCM.PN ---
<Diana Casey - Last Filed: 10/23/17 14:15> Subjective - Date & Time of Evaluation Date of Evaluation: 10/23/17 Time of Evaluation: 14:02 - Subjective Subjective: 86 YO F seen resting comfortably in bed. No overnight events reported. Patients erythema on her left lower leg has improved significantly. Objective - Vital Signs/Intake and Output Vital Signs (last 24 hours): Temp Pulse Resp BP Pulse Ox 98.1 F 56 L 18 101/51 L 96 10/23/17 12:45 10/23/17 12:45 10/23/17 12:45 10/23/17 12:45 10/23/17 12:45 - Medications Medications: Current Medications Albuterol Sulfate (Albuterol 0.083% Inhal Carmen (2.5 Mg/3 Ml) Ud) 2.5 mg INH RQ4 PRN PRN Reason: Shortness of Breath Clotrimazole (Lotrimin 1% Cream) 1 applic TOP BID [facility] Last Admin: 10/23/17 09:53 Dose: 1 applic Enoxaparin Sodium (Lovenox) 30 mg SC DAILY [facility] PRN Reason: Protocol Ergocalciferol (Drisdol 50,000 Intl Units Cap) 1 cap PO QWK [facility] Last Admin: 10/23/17 09:53 Dose: 1 cap Furosemide (Lasix) 20 mg IVP DAILY [facility] Vancomycin HCl 1 gm/ Sodium (Chloride) 250 mls @ 166.667 mls/hr IVPB DAILY [facility] PRN Reason: Protocol Last Admin: 10/23/17 09:58 Dose: 166.667 mls/hr Piperacillin Sod/Tazobactam (Sod 3.375 gm/ Sodium Chloride) 100 mls @ 100 mls/ hr IVPB Q6 [facility] PRN Reason: Protocol Last Admin: 10/23/17 04:51 Dose: 100 mls/hr Fluconazole (Diflucan Iv 100 Mg/50 Ml Ns) 50 mls @ 50 mls/hr IVPB DAILY [facility] PRN Reason: Protocol Last Admin: 10/23/17 09:49 Dose: 50 mls/hr Levofloxacin/Dextrose (Levaquin 750mg) 750 mg in 150 mls @ 100 mls/hr IVPB Q48H [facility] PRN Reason: Protocol Latanoprost (Xalatan Opht) 1 drop OU DAILY [facility] Last Admin: 10/23/17 09:54 Dose: 1 drop Losartan Potassium (Cozaar) 100 mg PO DAILY [facility] Last Admin: 10/23/17 09:52 Dose: 100 mg Memantine (Namenda) 10 mg PO BID [facility] Last Admin: 10/23/17 09:52 Dose: 10 mg Metoprolol Succinate (Toprol Xl) 50 mg PO DAILY [facility] Last Admin: 10/23/17 09:50 Dose: 50 mg Montelukast Sodium (Singulair) 10 mg PO DAILY [facility] Last Admin: 10/23/17 09:53 Dose: 10 mg Pantoprazole Sodium (Protonix Ec Tab) 40 mg PO HS [facility] Last Admin: 10/22/17 21:31 Dose: 40 mg Paroxetine HCl (Paxil) 20 mg PO DAILY [facility] Last Admin: 10/23/17 09:53 Dose: 20 mg Pravastatin Sodium (Pravachol) 20 mg PO HS [facility] Last Admin: 10/22/17 21:31 Dose: 20 mg - Labs Labs: 10/21/17 19:49 10/23/17 05:53 - Constitutional Appears: No Acute Distress - Head Exam Head Exam: NORMAL INSPECTION - Respiratory Exam Respiratory Exam: Decreased Breath Sounds (at right base), Rales, Rhonchi - Cardiovascular Exam Cardiovascular Exam: REGULAR RHYTHM, +S1, +S2 - GI/Abdominal Exam GI & Abdominal Exam: Soft, Normal Bowel Sounds. absent: Tenderness - Extremities Exam Extremities Exam: Normal Inspection. absent: Calf Tenderness - Back Exam Back Exam: NORMAL INSPECTION - Neurological Exam Neurological Exam: Alert, Awake, CN II-XII Intact - Skin Additional comments: left lower leg increase in warmth however redness has subsided Assessment and Plan - Assessment and Plan (Free Text) Assessment: 86 Y/O F w/ h/o reccurent pleural effusions presents with a rash to the left leg and is found to have pneumonia and right sided pleural effusion. 1) Diastolic Heart Failure: Acute on chronic - EF: preserved EF of 75 % - right sided pleural efusion - BNP: 1979 - Lasix 20 mg IV BID will be decreased to once a day - Creatinine increased from .8 to 1.3 2) Hospital acquired bacterial pneumonia - No leucocytosis noted - Right sided infiltrate - Levofloxacin - Vanco - Zosyn 3) Rash over left lower leg: Possibly Cellulitis - ID on board - Vanocmycin + Diflucan - clotrimazole - Duplex lower extremities: Negative 4) Alzhiemers C/W home meds: Memantine 5) DVT prophylaxis - Lovenox 40 SC <Ariel Gaviria - Last Filed: 10/26/17 11:17> Objective - Vital Signs/Intake and Output Vital Signs (last 24 hours): Temp Pulse Resp BP Pulse Ox 98.3 F 74 20 112/76 100 10/26/17 07:59 10/26/17 08:37 10/26/17 07:59 10/26/17 08:37 10/26/17 07:59 - Medications Medications: Current Medications Acetaminophen (Tylenol 325mg Tab) 650 mg PO Q6 PRN PRN Reason: Fever >100.4 F Last Admin: 10/26/17 00:38 Dose: 650 mg Albuterol Sulfate (Albuterol 0.083% Inhal Carmen (2.5 Mg/3 Ml) Ud) 2.5 mg INH RQ4 PRN PRN Reason: Shortness of Breath Albuterol/Ipratropium (Duoneb 3 Mg/0.5 Mg (3 Ml) Ud) 3 ml INH RQID [facility] Last Admin: 10/26/17 07:34 Dose: 3 ml Budesonide (Pulmicort Respules) 0.5 mg IH RBID [facility] Last Admin: 10/26/17 07:34 Dose: 0.5 mg Clotrimazole (Lotrimin 1% Cream) 1 applic TOP BID [facility] Last Admin: 10/26/17 08:34 Dose: 1 applic Enoxaparin Sodium (Lovenox) 30 mg SC DAILY [facility] PRN Reason: Protocol Last Admin: 10/26/17 08:34 Dose: 30 mg Ergocalciferol (Drisdol 50,000 Intl Units Cap) 1 cap PO QWK [facility] Last Admin: 10/23/17 09:53 Dose: 1 cap Furosemide (Lasix) 20 mg IVP DAILY [facility] Last Admin: 10/24/17 08:58 Dose: Not Given Gabapentin (Neurontin) 300 mg PO TID [facility] Last Admin: 10/26/17 08:34 Dose: 300 mg Fluconazole (Diflucan Iv 100 Mg/50 Ml Ns) 50 mls @ 50 mls/hr IVPB DAILY [facility] PRN Reason: Protocol Last Admin: 10/26/17 08:38 Dose: 50 mls/hr Levofloxacin/Dextrose (Levaquin 750mg) 750 mg in 150 mls @ 100 mls/hr IVPB Q48H [facility] PRN Reason: Protocol Last Admin: 10/25/17 13:56 Dose: 100 mls/hr Clindamycin Phosphate (Cleocin In Normal Saline) 600 mg in 50 mls @ 50 mls/hr IVPB Q8 [facility] PRN Reason: Protocol Last Admin: 10/26/17 08:33 Dose: 50 mls/hr Piperacillin Sod/Tazobactam (Sod 2.25 gm/ Sodium Chloride) 50 mls @ 50 mls/hr IVPB Q12 [facility] PRN Reason: Protocol Last Admin: 10/26/17 08:35 Dose: 50 mls/hr Lactic Acid (Lac-Hydrin 12% Lotion (225 G)) 1 applic TOP TID [facility] Last Admin: 10/26/17 08:34 Dose: 1 applic Latanoprost (Xalatan Opht) 1 drop OU DAILY [facility] Last Admin: 10/26/17 08:32 Dose: 1 drop Losartan Potassium (Cozaar) 100 mg PO DAILY [facility] Last Admin: 10/26/17 08:37 Dose: 100 mg Memantine (Namenda) 10 mg PO BID [facility] Last Admin: 10/26/17 08:34 Dose: 10 mg Metoprolol Succinate (Toprol Xl) 50 mg PO DAILY [facility] Last Admin: 10/26/17 08:36 Dose: 50 mg Montelukast Sodium (Singulair) 10 mg PO DAILY [facility] Last Admin: 10/26/17 08:35 Dose: 10 mg Pantoprazole Sodium (Protonix Ec Tab) 40 mg PO HS [facility] Last Admin: 10/25/17 21:18 Dose: 40 mg Paroxetine HCl (Paxil) 20 mg PO DAILY [facility] Last Admin: 10/26/17 08:35 Dose: 20 mg Pravastatin Sodium (Pravachol) 20 mg PO HS [facility] Last Admin: 10/25/17 21:18 Dose: 20 mg Tramadol HCl (Ultram) 50 mg PO Q8 PRN PRN Reason: Pain, moderate (4-7) Last Admin: 10/26/17 02:47 Dose: 50 mg - Labs Labs: 10/26/17 05:50 10/24/17 06:05 Assessment and Plan - Assessment and Plan (Free Text) Plan: I was present during the evaluation and discussed with DR Casey re plans of care and tx. Ariel Gaviria M.D.
[2017-10-23] MEDS: Albuterol-Ipratrop 3 mg / 0.5 (3 ml) UD INH SCH ×2 (16:26→20:05)
--- NOTE | 2017-10-23 19:25 | CP.PCM.PN ---
Subjective - Date & Time of Evaluation Date of Evaluation: 10/23/17 Time of Evaluation: 19:24 - Subjective Subjective: i d note still awaiting identification of gram neg rods in urine vancomycin troughs are high have discontinued start clindamycin Objective - Vital Signs/Intake and Output Vital Signs (last 24 hours): Temp Pulse Resp BP Pulse Ox 98.2 F 64 19 98/48 L 95 10/23/17 16:20 10/23/17 16:20 10/23/17 16:20 10/23/17 16:20 10/23/17 16:20 - Medications Medications: Current Medications Albuterol Sulfate (Albuterol 0.083% Inhal Carmen (2.5 Mg/3 Ml) Ud) 2.5 mg INH RQ4 PRN PRN Reason: Shortness of Breath Albuterol/Ipratropium (Duoneb 3 Mg/0.5 Mg (3 Ml) Ud) 3 ml INH RQID [facility] Last Admin: 10/23/17 16:26 Dose: 3 ml Budesonide (Pulmicort Respules) 0.5 mg IH RBID [facility] Clotrimazole (Lotrimin 1% Cream) 1 applic TOP BID [facility] Last Admin: 10/23/17 17:09 Dose: 1 applic Enoxaparin Sodium (Lovenox) 30 mg SC DAILY [facility] PRN Reason: Protocol Ergocalciferol (Drisdol 50,000 Intl Units Cap) 1 cap PO QWK [facility] Last Admin: 10/23/17 09:53 Dose: 1 cap Furosemide (Lasix) 20 mg IVP DAILY [facility] Vancomycin HCl 1 gm/ Sodium (Chloride) 250 mls @ 166.667 mls/hr IVPB DAILY [facility] PRN Reason: Protocol Last Admin: 10/23/17 09:58 Dose: 166.667 mls/hr Piperacillin Sod/Tazobactam (Sod 3.375 gm/ Sodium Chloride) 100 mls @ 100 mls/ hr IVPB Q6 [facility] PRN Reason: Protocol Last Admin: 10/23/17 17:10 Dose: 100 mls/hr Fluconazole (Diflucan Iv 100 Mg/50 Ml Ns) 50 mls @ 50 mls/hr IVPB DAILY [facility] PRN Reason: Protocol Last Admin: 10/23/17 09:49 Dose: 50 mls/hr Levofloxacin/Dextrose (Levaquin 750mg) 750 mg in 150 mls @ 100 mls/hr IVPB Q48H [facility] PRN Reason: Protocol Last Admin: 10/23/17 14:16 Dose: Not Given Latanoprost (Xalatan Opht) 1 drop OU DAILY [facility] Last Admin: 10/23/17 09:54 Dose: 1 drop Losartan Potassium (Cozaar) 100 mg PO DAILY [facility] Last Admin: 10/23/17 09:52 Dose: 100 mg Memantine (Namenda) 10 mg PO BID [facility] Last Admin: 10/23/17 17:10 Dose: 10 mg Metoprolol Succinate (Toprol Xl) 50 mg PO DAILY [facility] Last Admin: 10/23/17 09:50 Dose: 50 mg Montelukast Sodium (Singulair) 10 mg PO DAILY [facility] Last Admin: 10/23/17 09:53 Dose: 10 mg Pantoprazole Sodium (Protonix Ec Tab) 40 mg PO HS [facility] Last Admin: 10/22/17 21:31 Dose: 40 mg Paroxetine HCl (Paxil) 20 mg PO DAILY [facility] Last Admin: 10/23/17 09:53 Dose: 20 mg Pravastatin Sodium (Pravachol) 20 mg PO HS [facility] Last Admin: 10/22/17 21:31 Dose: 20 mg - Labs Labs: 10/21/17 19:49 10/23/17 05:53
[2017-10-23] MEDS: Budesonide 0.5 mg/2 ml Inhal Susp UD IH SCH (20:05)
[2017-10-23] MEDS: Pantoprazole 40 mg EC Tab PO SCH (21:39)
[2017-10-23] MEDS: Pravastatin Sodium 20 MG TAB PO SCH (21:40)
[2017-10-24] MEDS: Clindamycin 600mg/50ml NS 600 MG/50 ML BAG IVPB SCH ×3 (00:09→16:04)
[2017-10-24] MEDS ORDERED: Oxycodone/Acetaminophen 5/325 mg Tab PO ONE (00:20)
[2017-10-24] MEDS: Piperacillin/Tazobact 3.375 GM in Sodium Chloride 0.9% 100 ML IVPB SCH ×4 (03:15→21:29)
[2017-10-24 07:20] LABS: CALCIUM 8.7 mg/dL (8.4-10.2)
[2017-10-24] MEDS: Budesonide 0.5 mg/2 ml Inhal Susp UD IH SCH ×2 (07:43→19:21)
[2017-10-24] MEDS: Albuterol-Ipratrop 3 mg / 0.5 (3 ml) UD INH SCH ×4 (07:43→19:21)
[2017-10-24] MEDS: Fluconazole IV 100mg/50 ml NS 50 ML IVPB SCH (08:55)
[2017-10-24] MEDS: Metoprolol Succinate 50 mg XL Tab PO SCH (08:57)
[2017-10-24] MEDS: Enoxaparin 30 mg Syringe SC SCH (08:58)
[2017-10-24] MEDS: Latanoprost 0.005% Opht SOUTION OU SCH (08:59)
--- NOTE | 2017-10-24 13:53 | PQF GENQUE ---
This form is a permanent part of the medical record 10/24/17 Dr. Gaviria, The attending physician is required to clarify conflicting documentation in the medical record. The following documentation is noted in the medical record: After work-up please clarify if Pneumonia is ruled in or ruled out. Diagnosis 1: HAP Documented in H&P. Treated with IVAB Diagnosis 2: No mention of Pneumonia in Pulmonary consult C/O rash on her left leg. + rales R base. BNP 1979. CXR: Right inferolateral pleural parenchymal opacity and compatible with right pleural effusion and compressive atelectasis -similar-appearing. No interval pathology noted Clarification of your documentation is requested to better reflect the severity of illness and intensity of treatment of your patient. Indicators present [] Specify: [] [] Specify: [] [] Specify: [] [] Specify: [] Location in the medical record that reflects the above clinical findings: [] Treatment Provided: [] PHYSICIAN'S RESPONSE Based on your medical judgment of the clinical indicators outlined above please clarify the following: [] Practitioner response [] If unable to determine, please check the box, sign and date. Present On Admission (POA) Indicator: [] Present at the time of admission [] Not present at the time of admission [] Clinically Undetermined In responding to this query, please exercise your independent professional judgment. The fact that a question is asked does not imply that any particular answer is desired or expected. Thank you for your clarification on this documentation. If you have any questions please call:ext [phone] * Thank you, Renetta Casey RN [facility]
--- NOTE | 2017-10-24 14:30 | CP.PCM.PN ---
<Diana Casey - Last Filed: 10/24/17 14:53> Subjective - Date & Time of Evaluation Date of Evaluation: 10/24/17 Time of Evaluation: 14:22 - Subjective Subjective: 86 YO F seen resting comfortably. Denies any overnight events. Redness over anterior portion of her right leg seems to be resolving, however she is having some irritation over that area. Objective - Vital Signs/Intake and Output Vital Signs (last 24 hours): Temp Pulse Resp BP Pulse Ox 98.0 F 65 19 105/58 L 97 10/24/17 07:55 10/24/17 13:29 10/24/17 07:55 10/24/17 08:58 10/24/17 13:29 - Medications Medications: Current Medications Albuterol Sulfate (Albuterol 0.083% Inhal Carmen (2.5 Mg/3 Ml) Ud) 2.5 mg INH RQ4 PRN PRN Reason: Shortness of Breath Albuterol/Ipratropium (Duoneb 3 Mg/0.5 Mg (3 Ml) Ud) [address] [facility] Last Admin: 10/24/17 11:24 Dose: 3 ml Budesonide (Pulmicort Respules) 0.[address] [facility] Last Admin: 10/24/17 07:43 Dose: 0.5 mg Clotrimazole (Lotrimin 1% Cream) [address] [facility] Last Admin: 10/24/17 08:55 Dose: 1 applic Enoxaparin Sodium (Lovenox) [address] [facility] PRN Reason: Protocol Last Admin: 10/24/17 08:58 Dose: 30 mg Ergocalciferol (Drisdol 50,000 Intl Units Cap) [address] [facility] Last Admin: 10/23/17 09:53 Dose: 1 cap Furosemide (Lasix) [address] [facility] Last Admin: 10/24/17 08:58 Dose: Not Given Gabapentin (Neurontin) [address] [facility] Last Admin: 10/24/17 12:02 Dose: 300 mg Piperacillin Sod/Tazobactam (Sod 3.375 gm/ Sodium Chloride) 100 mls @ 100 mls/ hr IVPB Q6 [facility] PRN Reason: Protocol Last Admin: 10/24/17 09:02 Dose: 100 mls/hr Fluconazole (Diflucan Iv 100 Mg/50 Ml Ns) 50 mls @ 50 mls/hr IVPB DAILY [facility] PRN Reason: Protocol Last Admin: 10/24/17 08:55 Dose: 50 mls/hr Levofloxacin/Dextrose (Levaquin 750mg) 750 mg in 150 mls @ 100 mls/hr IVPB Q48H [facility] PRN Reason: Protocol Last Admin: 10/23/17 14:16 Dose: Not Given Clindamycin Phosphate (Cleocin In Normal Saline) 600 mg in 50 mls @ 50 mls/hr IVPB Q8 [facility] PRN Reason: Protocol Last Admin: 10/24/17 08:55 Dose: 50 mls/hr Lactic Acid (Lac-Hydrin 12% Lotion (225 G)) [address] [facility] Last Admin: 10/24/17 12:01 Dose: 1 applic Latanoprost (Xalatan Opht) [address] [facility] Last Admin: 10/24/17 08:59 Dose: 1 drop Losartan Potassium (Cozaar) [address] [facility] Last Admin: 10/24/17 08:57 Dose: Not Given Memantine (Namenda) [address] [facility] Last Admin: 10/24/17 08:56 Dose: 10 mg Metoprolol Succinate (Toprol Xl) [address] [facility] Last Admin: 10/24/17 08:57 Dose: Not Given Montelukast Sodium (Singulair) [address] [facility] Last Admin: 10/24/17 08:57 Dose: 10 mg Pantoprazole Sodium (Protonix Ec Tab) [address] [facility] Last Admin: 10/23/17 21:39 Dose: 40 mg Paroxetine HCl (Paxil) [address] [facility] Last Admin: 10/24/17 08:56 Dose: 20 mg Pravastatin Sodium (Pravachol) [address] [facility] Last Admin: 10/23/17 21:40 Dose: 20 mg Tramadol HCl (Ultram) 50 mg PO Q8 PRN PRN Reason: Pain, moderate (4-7) Last Admin: 10/23/17 21:41 Dose: 50 mg - Labs Labs: 10/21/17 19:49 10/24/17 06:05 - Constitutional Appears: No Acute Distress - Head Exam Head Exam: NORMAL INSPECTION - Eye Exam Eye Exam: Normal appearance - Respiratory Exam Respiratory Exam: Rales, NORMAL BREATHING PATTERN. absent: Rhonchi, Wheezes - Cardiovascular Exam Cardiovascular Exam: REGULAR RHYTHM, +S1, +S2 - GI/Abdominal Exam GI & Abdominal Exam: Soft, Normal Bowel Sounds. absent: Tenderness - Extremities Exam Extremities Exam: Full ROM. absent: Calf Tenderness - Neurological Exam Neurological Exam: Alert, Awake, CN II-XII Intact - Skin Additional comments: left lower leg increase in warmth however redness is improving Assessment and Plan - Assessment and Plan (Free Text) Assessment: 86 Y/O F w/ h/o reccurent pleural effusions presents with a rash to the left leg and found to have right sided pleural effusion. 1) Diastolic Heart Failure: Acute on chronic - EF: preserved EF of 75 % - right sided pleural efusion - BNP: 1979 - Lasix 20 mg IV daily: hold lasix dose for one day, because of the bump in creatinine - Creatinine increased from .8 to 1.3 to 1.7 ( Hold lasix dose) 2) Hospital acquired bacterial pneumonia - No leucocytosis noted - Right sided infiltrate in initial interpretation in the ER. However official read does not show infiltrate 3) Rash over left lower leg: Possibly Cellulitis - ID on board - Clindamycin + Diflucan+ Clotrimazole - Duplex lower extremities: Negative 4) Alzhiemers C/W home meds: Memantine 5) UTI -proteus - C/W Zosyn 5) DVT prophylaxis - Lovenox 40 SC <Ariel Gaviria - Last Filed: 10/26/17 11:18> Objective - Vital Signs/Intake and Output Vital Signs (last 24 hours): Temp Pulse Resp BP Pulse Ox 98.3 F 74 20 112/76 100 10/26/17 07:59 10/26/17 08:37 10/26/17 07:59 10/26/17 08:37 10/26/17 07:59 - Medications Medications: Current Medications Acetaminophen (Tylenol 325mg Tab) 650 mg PO Q6 PRN PRN Reason: Fever >100.4 F Last Admin: 10/26/17 00:38 Dose: 650 mg Albuterol Sulfate (Albuterol 0.083% Inhal Carmen (2.5 Mg/3 Ml) Ud) 2.5 mg INH RQ4 PRN PRN Reason: Shortness of Breath Albuterol/Ipratropium (Duoneb 3 Mg/0.5 Mg (3 Ml) Ud) [address] [facility] Last Admin: 10/26/17 07:34 Dose: 3 ml Budesonide (Pulmicort Respules) 0.[address] [facility] Last Admin: 10/26/17 07:34 Dose: 0.5 mg Clotrimazole (Lotrimin 1% Cream) [address] [facility] Last Admin: 10/26/17 08:34 Dose: 1 applic Enoxaparin Sodium (Lovenox) [address] [facility] PRN Reason: Protocol Last Admin: 10/26/17 08:34 Dose: 30 mg Ergocalciferol (Drisdol 50,000 Intl Units Cap) [address] [facility] Last Admin: 10/23/17 09:53 Dose: 1 cap Furosemide (Lasix) [address] [facility] Last Admin: 10/24/17 08:58 Dose: Not Given Gabapentin (Neurontin) [address] [facility] Last Admin: 10/26/17 08:34 Dose: 300 mg Fluconazole (Diflucan Iv 100 Mg/50 Ml Ns) 50 mls @ 50 mls/hr IVPB DAILY [facility] PRN Reason: Protocol Last Admin: 10/26/17 08:38 Dose: 50 mls/hr Levofloxacin/Dextrose (Levaquin 750mg) 750 mg in 150 mls @ 100 mls/hr IVPB Q48H [facility] PRN Reason: Protocol Last Admin: 10/25/17 13:56 Dose: 100 mls/hr Clindamycin Phosphate (Cleocin In Normal Saline) 600 mg in 50 mls @ 50 mls/hr IVPB Q8 [facility] PRN Reason: Protocol Last Admin: 10/26/17 08:33 Dose: 50 mls/hr Piperacillin Sod/Tazobactam (Sod 2.25 gm/ Sodium Chloride) 50 mls @ 50 mls/hr IVPB Q12 [facility] PRN Reason: Protocol Last Admin: 10/26/17 08:35 Dose: 50 mls/hr Lactic Acid (Lac-Hydrin 12% Lotion (225 G)) [address] [facility] Last Admin: 10/26/17 08:34 Dose: 1 applic Latanoprost (Xalatan Opht) [address] [facility] Last Admin: 10/26/17 08:32 Dose: 1 drop Losartan Potassium (Cozaar) [address] [facility] Last Admin: 10/26/17 08:37 Dose: 100 mg Memantine (Namenda) [address] [facility] Last Admin: 10/26/17 08:34 Dose: 10 mg Metoprolol Succinate (Toprol Xl) [address] [facility] Last Admin: 10/26/17 08:36 Dose: 50 mg Montelukast Sodium (Singulair) [address] [facility] Last Admin: 10/26/17 08:35 Dose: 10 mg Pantoprazole Sodium (Protonix Ec Tab) [address] [facility] Last Admin: 10/25/17 21:18 Dose: 40 mg Paroxetine HCl (Paxil) [address] [facility] Last Admin: 10/26/17 08:35 Dose: 20 mg Pravastatin Sodium (Pravachol) [address] [facility] Last Admin: 10/25/17 21:18 Dose: 20 mg Tramadol HCl (Ultram) 50 mg PO Q8 PRN PRN Reason: Pain, moderate (4-7) Last Admin: 10/26/17 02:47 Dose: 50 mg - Labs Labs: 10/26/17 05:50 10/24/17 06:05 Assessment and Plan - Assessment and Plan (Free Text) Plan: Patient was seen with Dr Casey. Discussed current management . Ariel Taylor M.D.
--- NOTE | 2017-10-24 18:29 | RAD ---
HISTORY: possible pneumonia COMPARISON: 10/21/2017. Single-view chest. 09/24/2017 CT thorax TECHNIQUE: Chest PA and lateral FINDINGS: LUNGS: Right lower lobe infiltrate. PLEURA: Accounting for differences in technique, no significant change in right pleural effusion. CARDIOVASCULAR: Normal. OSSEOUS STRUCTURES: No significant abnormalities. VISUALIZED UPPER ABDOMEN: Normal. OTHER FINDINGS: None. IMPRESSION: No significant interval change compared to the prior examination(s).
[2017-10-24] MEDS: Pantoprazole 40 mg EC Tab PO SCH (21:30)
[2017-10-24] MEDS: Pravastatin Sodium 20 MG TAB PO SCH (21:30)
[2017-10-25] MEDS: Clindamycin 600mg/50ml NS 600 MG/50 ML BAG IVPB SCH ×3 (00:47→16:42)
[2017-10-25] MEDS: Piperacillin/Tazobact 3.375 GM in Sodium Chloride 0.9% 100 ML IVPB SCH ×2 (03:44→12:20)
[2017-10-25] MEDS: Albuterol-Ipratrop 3 mg / 0.5 (3 ml) UD INH SCH ×4 (08:25→18:59)
[2017-10-25] MEDS: Budesonide 0.5 mg/2 ml Inhal Susp UD IH SCH ×2 (08:25→18:59)
[2017-10-25] MEDS: Metoprolol Succinate 50 mg XL Tab PO SCH (09:06)
[2017-10-25] MEDS: Enoxaparin 30 mg Syringe SC SCH (09:06)
[2017-10-25] MEDS: Latanoprost 0.005% Opht SOUTION OU SCH (09:07)
[2017-10-25] MEDS: levoFLOXacin 750 mg in D5W 750 MG/150 ML BAG IVPB SCH (13:56)
[2017-10-25] MEDS: Fluconazole IV 100mg/50 ml NS 50 ML IVPB SCH (15:33)
--- NOTE | 2017-10-25 16:02 | CP.PCM.PN ---
Subjective - Date & Time of Evaluation Date of Evaluation: 10/25/17 Time of Evaluation: 16:00 - Subjective Subjective: I D NOTE positive blood culture for strep viridins positive urine culture for proteus both are sensitive to zosyn strep also sensitive to clindamycin have adjusted zosyn dose because of decreasing renal function echocardiogram ordered Objective - Vital Signs/Intake and Output Vital Signs (last 24 hours): Temp Pulse Resp BP Pulse Ox 98.2 F 84 20 96/61 L 100 10/25/17 15:57 10/25/17 15:57 10/25/17 15:57 10/25/17 15:57 10/25/17 15:57 - Medications Medications: Current Medications Albuterol Sulfate (Albuterol 0.083% Inhal Carmen (2.5 Mg/3 Ml) Ud) 2.5 mg INH RQ4 PRN PRN Reason: Shortness of Breath Albuterol/Ipratropium (Duoneb 3 Mg/0.5 Mg (3 Ml) Ud) 3 ml INH RQID [facility] Last Admin: 10/25/17 15:09 Dose: 3 ml Budesonide (Pulmicort Respules) 0.5 mg IH RBID [facility] Last Admin: 10/25/17 08:25 Dose: 0.5 mg Clotrimazole (Lotrimin 1% Cream) 1 applic TOP BID [facility] Last Admin: 10/25/17 09:05 Dose: 1 applic Enoxaparin Sodium (Lovenox) 30 mg SC DAILY [facility] PRN Reason: Protocol Last Admin: 10/25/17 09:06 Dose: 30 mg Ergocalciferol (Drisdol 50,000 Intl Units Cap) 1 cap PO QWK [facility] Last Admin: 10/23/17 09:53 Dose: 1 cap Furosemide (Lasix) 20 mg IVP DAILY [facility] Last Admin: 10/24/17 08:58 Dose: Not Given Gabapentin (Neurontin) 300 mg PO TID [facility] Last Admin: 10/25/17 12:23 Dose: 300 mg Piperacillin Sod/Tazobactam (Sod 3.375 gm/ Sodium Chloride) 100 mls @ 100 mls/ hr IVPB Q6 [facility] PRN Reason: Protocol Last Admin: 10/25/17 12:20 Dose: 100 mls/hr Fluconazole (Diflucan Iv 100 Mg/50 Ml Ns) 50 mls @ 50 mls/hr IVPB DAILY [facility] PRN Reason: Protocol Last Admin: 10/25/17 15:33 Dose: 50 mls/hr Levofloxacin/Dextrose (Levaquin 750mg) 750 mg in 150 mls @ 100 mls/hr IVPB Q48H [facility] PRN Reason: Protocol Last Admin: 10/25/17 13:56 Dose: 100 mls/hr Clindamycin Phosphate (Cleocin In Normal Saline) 600 mg in 50 mls @ 50 mls/hr IVPB Q8 [facility] PRN Reason: Protocol Last Admin: 10/25/17 09:04 Dose: 50 mls/hr Lactic Acid (Lac-Hydrin 12% Lotion (225 G)) 1 applic TOP TID [facility] Last Admin: 10/25/17 12:23 Dose: 1 applic Latanoprost (Xalatan Opht) 1 drop OU DAILY [facility] Last Admin: 10/25/17 09:07 Dose: 1 drop Losartan Potassium (Cozaar) 100 mg PO DAILY [facility] Last Admin: 10/25/17 09:04 Dose: Not Given Memantine (Namenda) 10 mg PO BID [facility] Last Admin: 10/25/17 09:06 Dose: 10 mg Metoprolol Succinate (Toprol Xl) 50 mg PO DAILY [facility] Last Admin: 10/25/17 09:06 Dose: Not Given Montelukast Sodium (Singulair) 10 mg PO DAILY [facility] Last Admin: 10/25/17 09:06 Dose: 10 mg Pantoprazole Sodium (Protonix Ec Tab) 40 mg PO HS [facility] Last Admin: 10/24/17 21:30 Dose: 40 mg Paroxetine HCl (Paxil) 20 mg PO DAILY [facility] Last Admin: 10/25/17 09:06 Dose: 20 mg Pravastatin Sodium (Pravachol) 20 mg PO HS [facility] Last Admin: 10/24/17 21:30 Dose: 20 mg Tramadol HCl (Ultram) 50 mg PO Q8 PRN PRN Reason: Pain, moderate (4-7) Last Admin: 10/25/17 05:55 Dose: 50 mg - Labs Labs: 10/21/17 19:49 10/24/17 06:05
[2017-10-25] MEDS: Pravastatin Sodium 20 MG TAB PO SCH (21:18)
[2017-10-25] MEDS: Pantoprazole 40 mg EC Tab PO SCH (21:18)
[2017-10-25] MEDS: Piperacillin/Tazobact 2.25 GM in Sodium Chloride 0.9% 50 ML IVPB SCH (21:18)
[2017-10-26] MEDS: Clindamycin 600mg/50ml NS 600 MG/50 ML BAG IVPB SCH ×3 (00:38→16:37)
[2017-10-26] MEDS: Budesonide 0.5 mg/2 ml Inhal Susp UD IH SCH ×2 (07:34→19:28)
[2017-10-26] MEDS: Albuterol-Ipratrop 3 mg / 0.5 (3 ml) UD INH SCH ×4 (07:34→19:28)
[2017-10-26 08:06] LABS: HEMOGLOBIN 8.7 g/dL (12.0-16.0); MEAN CELL VOLUME 78.1 fl (81.0-99.0); MEAN CORPUSCULAR HEMOGLOBIN 25.2 pg (27.0-31.0); MEAN CORPUSCULAR HGB CONC 32.3 g/dL (33.0-37.0); RBC 3.45 Mil/uL (3.80-5.20); RED CELL DISTRIBUTION WIDTH 16.3 % (11.5-14.5)
[2017-10-26] MEDS: Latanoprost 0.005% Opht SOUTION OU SCH (08:32)
[2017-10-26] MEDS: Enoxaparin 30 mg Syringe SC SCH (08:34)
[2017-10-26] MEDS: Piperacillin/Tazobact 2.25 GM in Sodium Chloride 0.9% 50 ML IVPB SCH ×2 (08:35→20:29)
[2017-10-26] MEDS: Metoprolol Succinate 50 mg XL Tab PO SCH (08:36)
[2017-10-26] MEDS: Fluconazole IV 100mg/50 ml NS 50 ML IVPB SCH (08:38)
--- NOTE | 2017-10-26 11:19 | CP.PCM.PN ---
Subjective - Date & Time of Evaluation Date of Evaluation: 10/25/17 Time of Evaluation: 11:00 - Subjective Subjective: Patient remains afebrile but noted to be positive for blood C and S and urine C and S. Still with redness of left eg Has less tenderness on the left leg. Objective - Vital Signs/Intake and Output Vital Signs (last 24 hours): Temp Pulse Resp BP Pulse Ox 98.3 F 74 20 112/76 100 10/26/17 07:59 10/26/17 08:37 10/26/17 07:59 10/26/17 08:37 10/26/17 07:59 - Medications Medications: Current Medications Acetaminophen (Tylenol 325mg Tab) 650 mg PO Q6 PRN PRN Reason: Fever >100.4 F Last Admin: 10/26/17 00:38 Dose: 650 mg Albuterol Sulfate (Albuterol 0.083% Inhal Carmen (2.5 Mg/3 Ml) Ud) 2.5 mg INH RQ4 PRN PRN Reason: Shortness of Breath Albuterol/Ipratropium (Duoneb 3 Mg/0.5 Mg (3 Ml) Ud) 3 ml INH RQID [facility] Last Admin: 10/26/17 07:34 Dose: 3 ml Budesonide (Pulmicort Respules) 0.5 mg IH RBID [facility] Last Admin: 10/26/17 07:34 Dose: 0.5 mg Clotrimazole (Lotrimin 1% Cream) 1 applic TOP BID [facility] Last Admin: 10/26/17 08:34 Dose: 1 applic Enoxaparin Sodium (Lovenox) 30 mg SC DAILY [facility] PRN Reason: Protocol Last Admin: 10/26/17 08:34 Dose: 30 mg Ergocalciferol (Drisdol 50,000 Intl Units Cap) 1 cap PO QWK [facility] Last Admin: 10/23/17 09:53 Dose: 1 cap Furosemide (Lasix) 20 mg IVP DAILY [facility] Last Admin: 10/24/17 08:58 Dose: Not Given Gabapentin (Neurontin) 300 mg PO TID [facility] Last Admin: 10/26/17 08:34 Dose: 300 mg Fluconazole (Diflucan Iv 100 Mg/50 Ml Ns) 50 mls @ 50 mls/hr IVPB DAILY [facility] PRN Reason: Protocol Last Admin: 10/26/17 08:38 Dose: 50 mls/hr Levofloxacin/Dextrose (Levaquin 750mg) 750 mg in 150 mls @ 100 mls/hr IVPB Q48H [facility] PRN Reason: Protocol Last Admin: 10/25/17 13:56 Dose: 100 mls/hr Clindamycin Phosphate (Cleocin In Normal Saline) 600 mg in 50 mls @ 50 mls/hr IVPB Q8 [facility] PRN Reason: Protocol Last Admin: 10/26/17 08:33 Dose: 50 mls/hr Piperacillin Sod/Tazobactam (Sod 2.25 gm/ Sodium Chloride) 50 mls @ 50 mls/hr IVPB Q12 [facility] PRN Reason: Protocol Last Admin: 10/26/17 08:35 Dose: 50 mls/hr Lactic Acid (Lac-Hydrin 12% Lotion (225 G)) 1 applic TOP TID [facility] Last Admin: 10/26/17 08:34 Dose: 1 applic Latanoprost (Xalatan Opht) 1 drop OU DAILY [facility] Last Admin: 10/26/17 08:32 Dose: 1 drop Losartan Potassium (Cozaar) 100 mg PO DAILY [facility] Last Admin: 10/26/17 08:37 Dose: 100 mg Memantine (Namenda) 10 mg PO BID [facility] Last Admin: 10/26/17 08:34 Dose: 10 mg Metoprolol Succinate (Toprol Xl) 50 mg PO DAILY [facility] Last Admin: 10/26/17 08:36 Dose: 50 mg Montelukast Sodium (Singulair) 10 mg PO DAILY [facility] Last Admin: 10/26/17 08:35 Dose: 10 mg Pantoprazole Sodium (Protonix Ec Tab) 40 mg PO HS [facility] Last Admin: 10/25/17 21:18 Dose: 40 mg Paroxetine HCl (Paxil) 20 mg PO DAILY [facility] Last Admin: 10/26/17 08:35 Dose: 20 mg Pravastatin Sodium (Pravachol) 20 mg PO HS [facility] Last Admin: 10/25/17 21:18 Dose: 20 mg Tramadol HCl (Ultram) 50 mg PO Q8 PRN PRN Reason: Pain, moderate (4-7) Last Admin: 10/26/17 02:47 Dose: 50 mg - Labs Labs: 10/26/17 05:50 10/24/17 06:05 - Head Exam Head Exam: NORMAL INSPECTION - Eye Exam Eye Exam: Normal appearance - ENT Exam ENT Exam: Mucous Membranes Moist - Respiratory Exam Respiratory Exam: Clear to Ausculation Bilateral - Cardiovascular Exam Cardiovascular Exam: REGULAR RHYTHM - GI/Abdominal Exam GI & Abdominal Exam: Normal Bowel Sounds - Neurological Exam Neurological Exam: CN II-XII Intact, Normal Gait - Psychiatric Exam Psychiatric exam: Normal Mood Assessment and Plan (1) Cellulitis of left leg Status: Acute (2) Dementia Status: Chronic (3) Hyperlipidemia Status: Chronic (4) Hypertension Status: Chronic - Assessment and Plan (Free Text) Plan: Conmeds Follow up with ID cont current meds. start Phys therapy
--- NOTE | 2017-10-26 11:24 | CP.PCM.PN ---
Subjective - Date & Time of Evaluation Date of Evaluation: 10/26/17 Time of Evaluation: 11:22 - Subjective Subjective: Patient continues to have redness of the left leg Remains afebrile Has no cough Has no SOB. Objective - Vital Signs/Intake and Output Vital Signs (last 24 hours): Temp Pulse Resp BP Pulse Ox 98.3 F 74 20 112/76 100 10/26/17 07:59 10/26/17 08:37 10/26/17 07:59 10/26/17 08:37 10/26/17 07:59 - Medications Medications: Current Medications Acetaminophen (Tylenol 325mg Tab) 650 mg PO Q6 PRN PRN Reason: Fever >100.4 F Last Admin: 10/26/17 00:38 Dose: 650 mg Albuterol Sulfate (Albuterol 0.083% Inhal Carmen (2.5 Mg/3 Ml) Ud) 2.5 mg INH RQ4 PRN PRN Reason: Shortness of Breath Albuterol/Ipratropium (Duoneb 3 Mg/0.5 Mg (3 Ml) Ud) 3 ml INH RQID [facility] Last Admin: 10/26/17 11:19 Dose: 3 ml Budesonide (Pulmicort Respules) 0.5 mg IH RBID [facility] Last Admin: 10/26/17 07:34 Dose: 0.5 mg Clotrimazole (Lotrimin 1% Cream) 1 applic TOP BID [facility] Last Admin: 10/26/17 08:34 Dose: 1 applic Enoxaparin Sodium (Lovenox) 30 mg SC DAILY [facility] PRN Reason: Protocol Last Admin: 10/26/17 08:34 Dose: 30 mg Ergocalciferol (Drisdol 50,000 Intl Units Cap) 1 cap PO QWK [facility] Last Admin: 10/23/17 09:53 Dose: 1 cap Furosemide (Lasix) 20 mg IVP DAILY [facility] Last Admin: 10/24/17 08:58 Dose: Not Given Gabapentin (Neurontin) 300 mg PO TID [facility] Last Admin: 10/26/17 08:34 Dose: 300 mg Fluconazole (Diflucan Iv 100 Mg/50 Ml Ns) 50 mls @ 50 mls/hr IVPB DAILY [facility] PRN Reason: Protocol Last Admin: 10/26/17 08:38 Dose: 50 mls/hr Levofloxacin/Dextrose (Levaquin 750mg) 750 mg in 150 mls @ 100 mls/hr IVPB Q48H [facility] PRN Reason: Protocol Last Admin: 10/25/17 13:56 Dose: 100 mls/hr Clindamycin Phosphate (Cleocin In Normal Saline) 600 mg in 50 mls @ 50 mls/hr IVPB Q8 [facility] PRN Reason: Protocol Last Admin: 10/26/17 08:33 Dose: 50 mls/hr Piperacillin Sod/Tazobactam (Sod 2.25 gm/ Sodium Chloride) 50 mls @ 50 mls/hr IVPB Q12 [facility] PRN Reason: Protocol Last Admin: 10/26/17 08:35 Dose: 50 mls/hr Lactic Acid (Lac-Hydrin 12% Lotion (225 G)) 1 applic TOP TID [facility] Last Admin: 10/26/17 08:34 Dose: 1 applic Latanoprost (Xalatan Opht) 1 drop OU DAILY [facility] Last Admin: 10/26/17 08:32 Dose: 1 drop Losartan Potassium (Cozaar) 100 mg PO DAILY [facility] Last Admin: 10/26/17 08:37 Dose: 100 mg Memantine (Namenda) 10 mg PO BID [facility] Last Admin: 10/26/17 08:34 Dose: 10 mg Metoprolol Succinate (Toprol Xl) 50 mg PO DAILY [facility] Last Admin: 10/26/17 08:36 Dose: 50 mg Montelukast Sodium (Singulair) 10 mg PO DAILY [facility] Last Admin: 10/26/17 08:35 Dose: 10 mg Pantoprazole Sodium (Protonix Ec Tab) 40 mg PO HS [facility] Last Admin: 10/25/17 21:18 Dose: 40 mg Paroxetine HCl (Paxil) 20 mg PO DAILY [facility] Last Admin: 10/26/17 08:35 Dose: 20 mg Pravastatin Sodium (Pravachol) 20 mg PO HS [facility] Last Admin: 10/25/17 21:18 Dose: 20 mg Tramadol HCl (Ultram) 50 mg PO Q8 PRN PRN Reason: Pain, moderate (4-7) Last Admin: 10/26/17 02:47 Dose: 50 mg - Labs Labs: 10/26/17 05:50 10/24/17 06:05 - Head Exam Head Exam: NORMAL INSPECTION - Eye Exam Eye Exam: Normal appearance - Respiratory Exam Respiratory Exam: Clear to Ausculation Bilateral - Cardiovascular Exam Cardiovascular Exam: Clicks, REGULAR RHYTHM - GI/Abdominal Exam GI & Abdominal Exam: Normal Bowel Sounds - Neurological Exam Neurological Exam: Awake, Normal Gait - Skin Skin Exam: Erythema Assessment and Plan (1) Cellulitis of left leg Status: Acute (2) Dementia Status: Chronic (3) Hyperlipidemia Status: Chronic (4) Hypertension Status: Chronic - Assessment and Plan (Free Text) Plan: Contmeds Cont tx Cont PT Subacute / TCU eval
[2017-10-26] MEDS: Pantoprazole 40 mg EC Tab PO SCH (21:28)
[2017-10-26] MEDS: Pravastatin Sodium 20 MG TAB PO SCH (21:28)
[2017-10-27] MEDS: Clindamycin 600mg/50ml NS 600 MG/50 ML BAG IVPB SCH ×3 (01:20→16:05)
[2017-10-27 06:50] LABS: ALB/GLOB RATIO 1.1 (1.0-2.1); ALBUMIN 3.6 g/dL (3.5-5.0); CALCIUM 8.2 mg/dL (8.4-10.2)
[2017-10-27] MEDS: Albuterol-Ipratrop 3 mg / 0.5 (3 ml) UD INH SCH ×4 (07:13→19:03)
[2017-10-27] MEDS: Budesonide 0.5 mg/2 ml Inhal Susp UD IH SCH ×2 (07:13→19:03)
[2017-10-27] MEDS: Enoxaparin 30 mg Syringe SC SCH (09:31)
[2017-10-27] MEDS: Metoprolol Succinate 50 mg XL Tab PO SCH (09:32)
[2017-10-27] MEDS: Latanoprost 0.005% Opht SOUTION OU SCH (09:33)
[2017-10-27] MEDS: Piperacillin/Tazobact 2.25 GM in Sodium Chloride 0.9% 50 ML IVPB SCH ×2 (09:34→21:02)
[2017-10-27 11:11] LABS: BASO # 0.1 K/uL (0.0-0.2); BASO % 0.9 % (0.0-2.0); EOS # 0.4 K/uL (0.0-0.7); EOS % 4.6 % (0.0-4.0); LYMPH % 12.5 % (20.0-40.0); MEAN CELL VOLUME 77.5 fl (81.0-99.0); MEAN CORPUSCULAR HEMOGLOBIN 26.1 pg (27.0-31.0); MEAN CORPUSCULAR HGB CONC 33.6 g/dL (33.0-37.0); MEAN PLATELET VOLUME 9.1 fl (7.2-11.7); MONO # 0.6 K/uL (0.0-0.8); MONO % 7.8 % (0.0-10.0); NEUT % 74.2 % (50.0-75.0); NRBC % 0.1 % (0.0-0.0); RBC 3.43 Mil/uL (3.80-5.20); RED CELL DISTRIBUTION WIDTH 16.7 % (11.5-14.5); WHITE BLOOD COUNT 8.1 K/uL (4.8-10.8)
[2017-10-27 12:33] LABS: CALCIUM 8.2 mg/dL (8.4-10.2)
[2017-10-27] MEDS: Sodium Chloride 0.9% 500 ML IV SCH (15:46)
--- NOTE | 2017-10-27 17:13 | US ---
PROCEDURE: Ultrasound of the Kidneys HISTORY: [facility] COMPARISON: 10/12/2015 TECHNIQUE: Sonogram of the kidneys. FINDINGS: RIGHT KIDNEY: Measures: 3.7 x 5.4 x 8.3 cm. Normal in size, contour and echogenicity. No stone, solid mass lesion or hydronephrosis visualized. LEFT KIDNEY: Measures: 4.1 x 5 x 9.9 cm. Normal in size, contour and echogenicity. No stone, solid mass lesion or hydronephrosis visualized. OTHER FINDINGS: None. IMPRESSION: Unremarkable renal sonogram.No significant interval change compared to the prior examination(s).
--- NOTE | 2017-10-27 18:12 | CP.PCM.PN ---
Subjective - Date & Time of Evaluation Date of Evaluation: 10/27/17 Time of Evaluation: 18:00 - Subjective Subjective: I D NOTE F/U BLOOD CULTURES ARE NEGATIVE REnal FUNCTION CONTINUES TO WORSEN TO SEE(NEPHROLOGY) ZOSYN ADJUSTED ON 10/25/17 VANCOMYCIN DCed ON 10/23/17 Objective - Vital Signs/Intake and Output Vital Signs (last 24 hours): Temp Pulse Resp BP Pulse Ox 98.2 F 73 20 123/69 99 10/27/17 16:14 10/27/17 16:14 10/27/17 16:14 10/27/17 16:14 10/27/17 16:14 - Medications Medications: Current Medications Acetaminophen (Tylenol 325mg Tab) 650 mg PO Q6 PRN PRN Reason: Fever >100.4 F Last Admin: 10/26/17 00:38 Dose: 650 mg Albuterol Sulfate (Albuterol 0.083% Inhal Carmen (2.5 Mg/3 Ml) Ud) 2.5 mg INH RQ4 PRN PRN Reason: Shortness of Breath Albuterol/Ipratropium (Duoneb 3 Mg/0.5 Mg (3 Ml) Ud) 3 ml INH RQID [facility] Last Admin: 10/27/17 15:32 Dose: 3 ml Budesonide (Pulmicort Respules) 0.5 mg IH RBID [facility] Last Admin: 10/27/17 07:13 Dose: 0.5 mg Clotrimazole (Lotrimin 1% Cream) 1 applic TOP BID [facility] Last Admin: 10/27/17 16:05 Dose: 1 applic Ergocalciferol (Drisdol 50,000 Intl Units Cap) 1 cap PO QWK [facility] Last Admin: 10/23/17 09:53 Dose: 1 cap Gabapentin (Neurontin) 300 mg PO TID [facility] Last Admin: 10/27/17 16:06 Dose: 300 mg Clindamycin Phosphate (Cleocin In Normal Saline) 600 mg in 50 mls @ 50 mls/hr IVPB Q8 [facility] PRN Reason: Protocol Last Admin: 10/27/17 16:05 Dose: 50 mls/hr Piperacillin Sod/Tazobactam (Sod 2.25 gm/ Sodium Chloride) 50 mls @ 50 mls/hr IVPB Q12 CRISTAL PRN Reason: Protocol Last Admin: 10/27/17 09:34 Dose: 50 mls/hr Sodium Chloride (Sodium Chloride 0.9%) 500 mls @ 40 mls/hr IV .[id number] [facility] Last Admin: 10/27/17 15:46 Dose: 40 mls/hr Lactic Acid (Lac-Hydrin 12% Lotion (225 G)) 1 applic TOP TID [facility] Last Admin: 10/27/17 16:05 Dose: 1 applic Latanoprost (Xalatan Opht) 1 drop OU DAILY [facility] Last Admin: 10/27/17 09:33 Dose: 1 drop Losartan Potassium (Cozaar) 100 mg PO DAILY [facility] Last Admin: 10/27/17 09:32 Dose: 100 mg Memantine (Namenda) 10 mg PO BID [facility] Last Admin: 10/27/17 16:06 Dose: 10 mg Metoprolol Succinate (Toprol Xl) 50 mg PO DAILY [facility] Last Admin: 10/27/17 09:32 Dose: 50 mg Montelukast Sodium (Singulair) 10 mg PO DAILY [facility] Last Admin: 10/27/17 09:32 Dose: 10 mg Pantoprazole Sodium (Protonix Ec Tab) 40 mg PO HS [facility] Last Admin: 10/26/17 21:28 Dose: 40 mg Paroxetine HCl (Paxil) 20 mg PO DAILY [facility] Last Admin: 10/27/17 09:32 Dose: 20 mg Pravastatin Sodium (Pravachol) 20 mg PO HS [facility] Last Admin: 10/26/17 21:28 Dose: 20 mg - Labs Labs: 10/27/17 11:07 10/27/17 12:16
--- NOTE | 2017-10-27 19:06 | CARD ---
APPROVED REPORT EXAM: Two-dimensional and M-mode echocardiogram with Doppler and color Doppler. Other Information Quality : AverageRhythm : NSR INDICATION Infection: 2D DIMENSIONS IVSd1.14 (0.7-1.1cm)LVDd3.23 (3.9-5.9cm) LVOT Diameter1.97 (1.8-2.4cm)PWd1.02 (0.7-1.1cm) IVSs1.26 (0.8-1.2cm)LVDs1.34 (2.5-4.0cm) FS (%) 58.5 %PWs1.53 (0.8-1.2cm) M-Mode DIMENSIONS Left Atrium (MM)3.53 (2.5-4.0cm)IVSd0.91 (0.7-1.1cm) Aortic Root2.81 (2.2-3.7cm)LVDd6.70 (4.0-5.6cm) Aortic Cusp Exc.1.65 (1.5-2.0cm)PWd1.13 (0.7-1.1cm) IVSs1.02 cmFS (%) 17 % LVDs5.54 (2.0-3.8cm)PWs1.41 cm Mitral Valve MV E Jbtfshfn991.6cm/sMV DECEL [id number] A Vagforna274.9cm/s MV CUN77bwL/A ratio0.9MVA (PHT)3.36cm2 TDI Medial E' Peak V10.19cm/sE/Lateral E'0.0E/Medial E'12.3 Tricuspid Valve TR Peak Qtjfylzl139ab/sRAP [id number] Peak Gr.35mmHg [id number] LEFT VENTRICLE The left ventricle is normal in size on the 2D study. There is normal left ventricular wall thickness. The left ventricular function is normal. The left ventricular ejection fraction is - 70%. There is normal LV segmental wall motion. Transmitral Doppler flow pattern is Grade I-abnormal relaxation pattern. No left ventricle thrombus noted on this study. There is no ventricular septal defect visualized. There is no left ventricular aneurysm. There is no mass noted in the left ventricle. RIGHT VENTRICLE The right ventricle is normal size. There is normal right ventricular wall thickness. The right ventricular systolic function is normal. ATRIA The left atrium is mildly dilated on the 2D study. There is no thrombus suspected in the left atrium. The right atrium size is normal. The interatrial septum is intact with no evidence for an atrial septal defect. AORTIC VALVE The aortic valve is mildly thickened. No aortic regurgitation is present. There is no aortic valvular stenosis. There is no aortic valvular vegetation. MITRAL VALVE The mitral valve is normal in structure. Mitral annular calcification is mild. There is no evidence of mitral valve prolapse. There is no mitral valve stenosis. Mitral regurgitation is mild. TRICUSPID VALVE The tricuspid valve is normal in structure. There is mild tricuspid regurgitation. Right ventricular systolic pressure is estimated at 47 mmHg. There is no tricuspid valve prolapse or vegetation. There is no tricuspid valve stenosis. PULMONIC VALVE The pulmonic valve is not well visualized. Doppler studies of the PV were not performed. GREAT VESSELS The aortic root is normal in size. The IVC was not well visualized. PERICARDIAL EFFUSION The pericardium appears normal. There is no pleural effusion. <Conclusion> The left ventricle is normal in size and wall thickness on the 2D study. The left ventricular function is normal. The left ventricular ejection fraction is - 70%. The left atrium is mildly dilated on the 2D study. The mitral and tricuspid valves were normal. The aortic valve was mildly thickened but not stenotic. No valvular vegetations were seen. There is mild mitral regurgitation and mild tricuspid regurgitation.
[2017-10-27] MEDS: Pantoprazole 40 mg EC Tab PO SCH (21:02)
[2017-10-27] MEDS: Pravastatin Sodium 20 MG TAB PO SCH (21:02)
[2017-10-28] MEDS: Clindamycin 600mg/50ml NS 600 MG/50 ML BAG IVPB SCH ×3 (01:16→16:28)
[2017-10-28] MEDS: Sodium Chloride 0.9% 500 ML IV SCH ×3 (07:26→16:30)
[2017-10-28] MEDS: Albuterol-Ipratrop 3 mg / 0.5 (3 ml) UD INH SCH ×4 (08:33→20:27)
[2017-10-28] MEDS: Budesonide 0.5 mg/2 ml Inhal Susp UD IH SCH ×2 (08:34→20:27)
[2017-10-28] MEDS: Piperacillin/Tazobact 2.25 GM in Sodium Chloride 0.9% 50 ML IVPB SCH ×2 (08:34→21:19)
[2017-10-28] MEDS: Latanoprost 0.005% Opht SOUTION OU SCH (08:34)
[2017-10-28] MEDS: Ergocalciferol 50,000 Intl Units Cap PO SCH (08:35)
[2017-10-28] MEDS: Metoprolol Succinate 50 mg XL Tab PO SCH (08:36)
[2017-10-28 10:31] LABS: HEMOGLOBIN 8.8 g/dL (12.0-16.0); MEAN CELL VOLUME 78.1 fl (81.0-99.0); MEAN CORPUSCULAR HEMOGLOBIN 26.1 pg (27.0-31.0); MEAN CORPUSCULAR HGB CONC 33.4 g/dL (33.0-37.0); RBC 3.36 Mil/uL (3.80-5.20); RED CELL DISTRIBUTION WIDTH 16.5 % (11.5-14.5); WHITE BLOOD COUNT 6.5 K/uL (4.8-10.8)
[2017-10-28 11:17] LABS: CALCIUM 8.2 mg/dL (8.4-10.2)
--- NOTE | 2017-10-28 12:47 | CP.PCM.CON ---
History of Present Illness - History of Present Illness History of Present Illness: Patient is a 86 years old for age female was cold to see for consultation because of rising BUN and creatinine. Patient is not given history and the history was taken from the medical record. And interpretation from the visitor at the bedside. Apparently she was admitted with cellulitis of the left lower leg and she has been treated with Levaquin also patient has been treated with Lasix and MARVIN inhibitor or ARB Patient also admitted with appear to be infiltration in the lung consistent was perhaps pneumonia and also what appeared to be some pleural effusion. Patient reported to have multiple admissions with a history of hypertension hyperlipidemia and perhaps underlying chronic kidney disease. Social history not contributory Review of Systems - Review of Systems Systems not reviewed;Unavailable: Dementia - Constitutional Constitutional: Weakness. absent: Anorexia, Chills - EENT Eyes: As Per HPI Nose/Mouth/Throat: absent: Epistaxis, Nasal Discharge - Cardiovascular Cardiovascular: absent: Chest Pain, Dyspnea, Edema, Syncope - Respiratory Respiratory: absent: Cough, Dyspnea - Gastrointestinal Gastrointestinal: absent: Abdominal Pain, Coffee Ground Emesis - Genitourinary Genitourinary: Nocturia - Musculoskeletal Musculoskeletal: Abnormal Gait. absent: Back Pain, Numbness - Neurological Neurological: Confusion. absent: Focal Weakness, Syncope - Endocrine Endocrine: Fatigue - Hematologic/Lymphatic Hematologic: absent: Easy Bleeding Past Patient History - Past Medical History & Family History Past Medical History?: Yes - Past Social History Smoking Status: Never Smoked Chewing Tobacco Use: No Cigar Use: No Alcohol: None Drugs: Denies - CARDIAC Hx Cardia Arrhythmia: Yes (9 beat V. tach on her last admission.) Hx Congestive Heart Failure: Yes (diastolic) Hx Hypercholesterolemia: Yes Hx Hypertension: Yes - PULMONARY Hx Asthma: Yes Hx Bronchitis: Yes Hx Chronic Obstructive Pulmonary Disease (COPD): Yes Hx Emphysema: No Hx Pneumonia: Yes Hx Pulmonary Embolism: No - NEUROLOGICAL Hx Neurological Disorder: Yes Hx Dementia: Yes - HEENT Hx HEENT Problems: No - RENAL Hx Chronic Kidney Disease: No Other/Comment: As per patient: kidney sx - ENDOCRINE/METABOLIC Hx Endocrine Disorders: No - HEMATOLOGICAL/ONCOLOGICAL Hx Anemia: Yes Hx Human Immunodeficiency Virus (HIV): No - INTEGUMENTARY Hx Dermatological Problems: No - MUSCULOSKELETAL/RHEUMATOLOGICAL Hx Arthritis: Yes Hx Osteoarthritis: Yes Hx Osteoporosis: Yes - GASTROINTESTINAL Hx Diverticulitis: Yes - GENITOURINARY/GYNECOLOGICAL Hx Genitourinary Disorders: No - PSYCHIATRIC Hx Psychophysiologic Disorder: Yes Hx Depression: Yes - SURGICAL HISTORY Hx Surgeries: Yes Hx Hysterectomy: Yes Hx Orthopedic Surgery: Yes Other/Comment: Left knee sx; left hip replacement - ANESTHESIA Hx Anesthesia: Yes Hx Anesthesia Reactions: No Hx Malignant Hyperthermia: No Meds Allergies/Adverse Reactions: Allergies Allergy/AdvReac Type Severity Reaction Status Date / Time No Known Allergies Allergy Verified 10/21/17 21:03 - Medications Medications: Current Medications Acetaminophen (Tylenol 325mg Tab) 650 mg PO Q6 PRN PRN Reason: Fever >100.4 F Last Admin: 10/26/17 00:38 Dose: 650 mg Albuterol Sulfate (Albuterol 0.083% Inhal Carmen (2.5 Mg/3 Ml) Ud) 2.5 mg INH RQ4 PRN PRN Reason: Shortness of Breath Albuterol/Ipratropium (Duoneb 3 Mg/0.5 Mg (3 Ml) Ud) 3 ml INH RQID [facility] Last Admin: 10/28/17 11:27 Dose: 3 ml Budesonide (Pulmicort Respules) 0.5 mg IH RBID [facility] Last Admin: 10/28/17 08:34 Dose: 0.5 mg Clotrimazole (Lotrimin 1% Cream) 1 applic TOP BID [facility] Last Admin: 10/28/17 08:34 Dose: 1 applic Ergocalciferol (Drisdol 50,000 Intl Units Cap) 1 cap PO QWK [facility] Last Admin: 10/28/17 08:35 Dose: 1 cap Gabapentin (Neurontin) 300 mg PO TID [facility] Last Admin: 10/28/17 12:13 Dose: 300 mg Clindamycin Phosphate (Cleocin In Normal Saline) 600 mg in 50 mls @ 50 mls/hr IVPB Q8 [facility] PRN Reason: Protocol Last Admin: 10/28/17 08:33 Dose: 50 mls/hr Piperacillin Sod/Tazobactam (Sod 2.25 gm/ Sodium Chloride) 50 mls @ 50 mls/hr IVPB Q12 [facility] PRN Reason: Protocol Last Admin: 10/28/17 08:34 Dose: 50 mls/hr Sodium Chloride (Sodium Chloride 0.9%) 500 mls @ 40 mls/hr IV .[id number] [facility] Last Admin: 10/28/17 07:26 Dose: 40 mls/hr Dextrose/Sodium Chloride (Dextrose 5%-0.45% Ns 500 Ml) 500 mls @ 60 mls/hr IV .Q8H20M [facility] Stop: 10/29/17 11:01 Last Admin: 10/28/17 11:27 Dose: 60 mls/hr Lactic Acid (Lac-Hydrin 12% Lotion (225 G)) 1 applic TOP TID [facility] Last Admin: 10/28/17 12:14 Dose: 1 applic Latanoprost (Xalatan Opht) 1 drop OU DAILY [facility] Last Admin: 10/28/17 08:34 Dose: 1 drop Memantine (Namenda) 10 mg PO BID [facility] Last Admin: 10/28/17 08:35 Dose: 10 mg Metoprolol Succinate (Toprol Xl) 50 mg PO DAILY [facility] Last Admin: 10/28/17 08:36 Dose: 50 mg Montelukast Sodium (Singulair) 10 mg PO DAILY [facility] Last Admin: 10/28/17 08:35 Dose: 10 mg Pantoprazole Sodium (Protonix Ec Tab) 40 mg PO [facility] Last Admin: 10/27/17 21:02 Dose: 40 mg Paroxetine HCl (Paxil) 20 mg PO DAILY [facility] Last Admin: 10/28/17 08:35 Dose: 20 mg Pravastatin Sodium (Pravachol) 20 mg PO [facility] Last Admin: 10/27/17 21:02 Dose: 20 mg Physical Exam - Constitutional Appears: No Acute Distress - ENT Exam ENT Exam: Mucous Membranes Moist - Neck Exam Neck exam: Negative for: Lymphadenopathy - Respiratory Exam Respiratory Exam: NORMAL BREATHING PATTERN. absent: Chest Wall Tenderness, Rales, Wheezes - Cardiovascular Exam Cardiovascular Exam: absent: Gallop, JVD, Rubs - GI/Abdominal Exam GI & Abdominal Exam: absent: Distended - Extremities Exam Extremities exam: Negative for: calf tenderness - Back Exam Back exam: absent: CVA tenderness (L), CVA tenderness (R) - Neurological Exam Neurological exam: Alert - Psychiatric Exam Psychiatric exam: Normal Affect Results - Vital Signs Recent Vital Signs: Last Vital Signs Temp 97.4 F L 10/28/17 08:32 Pulse 64 10/28/17 08:36 Resp 20 10/28/17 08:32 BP 102/66 02/13/18 08:36 Pulse Ox 100 10/28/17 08:32 - Labs Result Diagrams: 10/28/17 10:23 10/28/17 10:23 Labs: Laboratory Results - last 24 hr 10/28/17 10/28/17 10:23 10:23 WBC 6.5 RBC 3.36 L Hgb 8.8 L Hct 26.2 L MCV 78.1 L MCH 26.1 L MCHC 33.4 RDW 16.5 H Plt Count 166 Sodium 141 Potassium 5.0 Chloride 102 Carbon Dioxide 24 Anion Gap 20 BUN 93 H Creatinine 4.2 H Est GFR ( Amer) 12 Est GFR (Non-Af Amer) 10 Random Glucose 85 Calcium 8.2 L Assessment & Plan (1) Acute kidney injury Assessment and Plan: Patient appears to have acute kidney injury most likely related to multifactorial including Levaquin perhaps and antibiotics among other things My recommendation discontinue Levaquin and discontinue Lasix discontinue ARB Advanced serum creatinine started to come down and started to show some improvement Cellulitis of the left lower leg appear to be resolving completely Hold off Lasix for couple of days patient appeared to be somewhat dry. Stat spot urine for sodium osmolality and creatinine Status: Acute (2) Cellulitis of left leg Status: Acute (3) CHF (congestive heart failure), NYHA class II Status: Acute
--- NOTE | 2017-10-28 17:26 | CP.PCM.PN ---
Subjective - Date & Time of Evaluation Date of Evaluation: 10/28/17 Time of Evaluation: 08:35 - Subjective Subjective: - Patient seen and examined at bedside. Appears to be doing well. Redness over lower extremity has resolved. No overnight events reported. Patient has afebrile overnight. Worsening kidney function Objective - Vital Signs/Intake and Output Vital Signs (last 24 hours): Temp Pulse Resp BP Pulse Ox 98.9 F 65 20 100/43 L 94 L 10/28/17 16:07 10/28/17 16:07 10/28/17 16:07 10/28/17 16:07 10/28/17 16:07 - Medications Medications: Current Medications Acetaminophen (Tylenol 325mg Tab) 650 mg PO Q6 PRN PRN Reason: Fever >100.4 F Last Admin: 10/26/17 00:38 Dose: 650 mg Albuterol Sulfate (Albuterol 0.083% Inhal Carmen (2.5 Mg/3 Ml) Ud) 2.5 mg INH RQ4 PRN PRN Reason: Shortness of Breath Albuterol/Ipratropium (Duoneb 3 Mg/0.5 Mg (3 Ml) Ud) 3 ml INH RQID [facility] Last Admin: 10/28/17 16:42 Dose: 3 ml Budesonide (Pulmicort Respules) 0.5 mg IH RBID [facility] Last Admin: 10/28/17 08:34 Dose: 0.5 mg Clotrimazole (Lotrimin 1% Cream) 1 applic TOP BID [facility] Last Admin: 10/28/17 16:29 Dose: 1 applic Ergocalciferol (Drisdol 50,000 Intl Units Cap) 1 cap PO QWK [facility] Last Admin: 10/28/17 08:35 Dose: 1 cap Gabapentin (Neurontin) 300 mg PO TID [facility] Last Admin: 10/28/17 16:29 Dose: 300 mg Clindamycin Phosphate (Cleocin In Normal Saline) 600 mg in 50 mls @ 50 mls/hr IVPB Q8 [facility] PRN Reason: Protocol Last Admin: 10/28/17 16:28 Dose: 50 mls/hr Piperacillin Sod/Tazobactam (Sod 2.25 gm/ Sodium Chloride) 50 mls @ 50 mls/hr IVPB Q12 [facility] PRN Reason: Protocol Last Admin: 10/28/17 08:34 Dose: 50 mls/hr Dextrose/Sodium Chloride (Dextrose 5%-0.45% Ns 500 Ml) 500 mls @ 60 mls/hr IV .Q8H20M [facility] Stop: 10/29/17 11:01 Last Admin: 10/28/17 11:27 Dose: 60 mls/hr Lactic Acid (Lac-Hydrin 12% Lotion (225 G)) 1 applic TOP TID [facility] Last Admin: 10/28/17 16:29 Dose: 1 applic Latanoprost (Xalatan Opht) 1 drop OU DAILY [facility] Last Admin: 10/28/17 08:34 Dose: 1 drop Memantine (Namenda) 10 mg PO BID [facility] Last Admin: 10/28/17 16:29 Dose: 10 mg Metoprolol Succinate (Toprol Xl) 50 mg PO DAILY [facility] Last Admin: 10/28/17 08:36 Dose: 50 mg Montelukast Sodium (Singulair) 10 mg PO DAILY [facility] Last Admin: 10/28/17 08:35 Dose: 10 mg Pantoprazole Sodium (Protonix Ec Tab) 40 mg PO HS [facility] Last Admin: 10/27/17 21:02 Dose: 40 mg Paroxetine HCl (Paxil) 20 mg PO DAILY [facility] Last Admin: 10/28/17 08:35 Dose: 20 mg Pravastatin Sodium (Pravachol) 20 mg PO [facility] Last Admin: 10/27/17 21:02 Dose: 20 mg - Labs Labs: 10/28/17 10:23 10/28/17 10:23 - Constitutional Appears: No Acute Distress - Head Exam Head Exam: NORMAL INSPECTION - Respiratory Exam Respiratory Exam: Clear to Ausculation Bilateral. absent: Rhonchi, Wheezes - Cardiovascular Exam Cardiovascular Exam: REGULAR RHYTHM, +S1, +S2 - Extremities Exam Additional comments: Erythema resolved - Neurological Exam Neurological Exam: Alert, Awake, CN II-XII Intact - Skin Skin Exam: Normal Color, Warm Assessment and Plan - Assessment and Plan (Free Text) Assessment: 1) Diastolic Heart Failure: Acute on chronic - EF: preserved EF of 75 % - Hold Lasix: Worsening kidney function 2) Rash over left lower leg: Possibly Cellulitis ( RESOLVED) - ID on board - CW Clindamycin - Duplex lower extremities: Negative 3) Acute on chronic renal failure - Hold lasix and DC Vanco and levoquin - C/W gentle hydration 4) UTI -proteus - C/W Zosyn 5) DVT prophylaxis - Lovenox 40 SC
[2017-10-28] MEDS: Pantoprazole 40 mg EC Tab PO SCH (21:21)
[2017-10-28] MEDS: Pravastatin Sodium 20 MG TAB PO SCH (21:22)
[2017-10-29] MEDS: Clindamycin 600mg/50ml NS 600 MG/50 ML BAG IVPB SCH ×3 (01:15→16:22)
[2017-10-29] MEDS: Albuterol-Ipratrop 3 mg / 0.5 (3 ml) UD INH SCH ×4 (07:53→19:30)
[2017-10-29] MEDS: Budesonide 0.5 mg/2 ml Inhal Susp UD IH SCH ×2 (07:53→19:30)
[2017-10-29 08:45] LABS: CALCIUM 8.4 mg/dL (8.4-10.2)
[2017-10-29] MEDS: Piperacillin/Tazobact 2.25 GM in Sodium Chloride 0.9% 50 ML IVPB SCH ×2 (08:55→21:45)
[2017-10-29] MEDS: Metoprolol Succinate 50 mg XL Tab PO SCH (08:55)
[2017-10-29] MEDS: Latanoprost 0.005% Opht SOUTION OU SCH ×2 (08:57→09:14)
--- NOTE | 2017-10-29 10:23 | CP.PCM.PN ---
Subjective - Date & Time of Evaluation Date of Evaluation: 10/29/17 Time of Evaluation: 10:20 - Subjective Subjective: Patient and bed appears to be comfortable Nausea or vomiting No chest pain Objective - Vital Signs/Intake and Output Vital Signs (last 24 hours): Temp Pulse Resp BP Pulse Ox 98.0 F 77 18 108/72 98 10/29/17 07:47 10/29/17 08:55 10/29/17 07:47 10/29/17 08:55 10/29/17 07:47 - Medications Medications: Current Medications Acetaminophen (Tylenol 325mg Tab) 650 mg PO Q6 PRN PRN Reason: Fever >100.4 F Last Admin: 10/26/17 00:38 Dose: 650 mg Albuterol Sulfate (Albuterol 0.083% Inhal Carmen (2.5 Mg/3 Ml) Ud) 2.5 mg INH RQ4 PRN PRN Reason: Shortness of Breath Albuterol/Ipratropium (Duoneb 3 Mg/0.5 Mg (3 Ml) Ud) 3 ml INH RQID [facility] Last Admin: 10/29/17 07:53 Dose: 3 ml Budesonide (Pulmicort Respules) 0.5 mg IH RBID [facility] Last Admin: 10/29/17 07:53 Dose: 0.5 mg Clotrimazole (Lotrimin 1% Cream) 1 applic TOP BID [facility] Last Admin: 10/29/17 09:13 Dose: 1 applic Ergocalciferol (Drisdol 50,000 Intl Units Cap) 1 cap PO QWK [facility] Last Admin: 10/28/17 08:35 Dose: 1 cap Gabapentin (Neurontin) 300 mg PO TID [facility] Last Admin: 10/29/17 08:56 Dose: 300 mg Clindamycin Phosphate (Cleocin In Normal Saline) 600 mg in 50 mls @ 50 mls/hr IVPB Q8 [facility] PRN Reason: Protocol Last Admin: 10/29/17 08:55 Dose: 50 mls/hr Piperacillin Sod/Tazobactam (Sod 2.25 gm/ Sodium Chloride) 50 mls @ 50 mls/hr IVPB Q12 [facility] PRN Reason: Protocol Last Admin: 10/29/17 08:55 Dose: 50 mls/hr Dextrose/Sodium Chloride (Dextrose 5%-0.45% Ns 500 Ml) 500 mls @ 60 mls/hr IV .Q8H20M [facility] Stop: 10/29/17 11:01 Last Admin: 10/29/17 03:40 Dose: 60 mls/hr Lactic Acid (Lac-Hydrin 12% Lotion (225 G)) 1 applic TOP TID [facility] Last Admin: 10/29/17 08:56 Dose: 1 applic Latanoprost (Xalatan Opht) 1 drop OU DAILY [facility] Last Admin: 10/29/17 09:14 Dose: 1 drop Memantine (Namenda) 10 mg PO BID [facility] Last Admin: 10/29/17 08:56 Dose: 10 mg Metoprolol Succinate (Toprol Xl) 50 mg PO DAILY [facility] Last Admin: 10/29/17 08:55 Dose: 50 mg Montelukast Sodium (Singulair) 10 mg PO DAILY [facility] Last Admin: 10/29/17 08:55 Dose: 10 mg Pantoprazole Sodium (Protonix Ec Tab) 40 mg PO [facility] Last Admin: 10/28/17 21:21 Dose: 40 mg Paroxetine HCl (Paxil) 20 mg PO DAILY [facility] Last Admin: 10/29/17 08:56 Dose: 20 mg Pravastatin Sodium (Pravachol) 20 mg PO [facility] Last Admin: 10/28/17 21:22 Dose: 20 mg - Labs Labs: 10/28/17 10:23 10/29/17 08:24 - Constitutional Appears: No Acute Distress - ENT Exam ENT Exam: Mucous Membranes Moist - Neck Exam Neck Exam: absent: Lymphadenopathy - Respiratory Exam Respiratory Exam: Clear to Ausculation Bilateral - Cardiovascular Exam Cardiovascular Exam: absent: Gallop, JVD, Rubs - GI/Abdominal Exam GI & Abdominal Exam: Soft, Normal Bowel Sounds - Extremities Exam Extremities Exam: absent: Calf Tenderness - Back Exam Back Exam: absent: CVA tenderness (L), CVA tenderness (R) - Neurological Exam Neurological Exam: Alert - Psychiatric Exam Psychiatric exam: Flat Affect - Skin Skin Exam: absent: Cyanosis Assessment and Plan (1) Acute kidney injury Assessment & Plan: Acute kidney injury improving serum creatinine coming down 3.2 BUN also trending down Patient receiving gentle hydration also antibiotics Levaquin has been discontinued. Patient expected to continue to have recovery from acute kidney injury to her baseline. Cellulitis clearing from the left leg The rest of the medical problem as noted Also noted to have anemia patient need workup to ordered iron and ferritin, Status: Acute (2) Cellulitis of left leg Status: Acute (3) CHF (congestive heart failure), NYHA class II Status: Acute
[2017-10-29 13:32] LABS: IRON 26 ug/dL (37-170)
[2017-10-29 13:41] LABS: % IRON SATURATION 10 % (20-55); TOTAL IRON BINDING CAPACITY 249 ug/dL (250-450)
--- NOTE | 2017-10-29 15:28 | CP.PCM.PCO ---
Assessment/Plan - Assessment/Plan Assessment (Free Text): Pt stable, seen and cleared for d/c to [facility] by Dr. Gaviria. Dr. Barros saw and cleared pt for d/c to [facility], creatinine continues to improve, continue to hold lasix, cozaar and levaquin. Pt voiding well, need to have labs checked in [address] Barros. [address]. Gaviria, pt will be followed in [place] by Dr. Maegan Hameed, pt's primary MD. Per Dr. Denny, pt to complete 10 days total abx. Pt to complete 5 more days of zosyn and 5 days of clinda PO as per med rec. - Problems Patient Problems: Problem List (Active/Current) Problem Status Onset Code Acute kidney injury Acute N17.9 Cellulitis of left leg Acute L03.116
[2017-10-29] MEDS: Pantoprazole 40 mg EC Tab PO SCH (22:21)
[2017-10-29] MEDS: Pravastatin Sodium 20 MG TAB PO SCH (22:21)
[2017-10-29 23:48] VITALS: RESP 20; O2SAT 98
[2017-10-30] MEDS: Clindamycin 600mg/50ml NS 600 MG/50 ML BAG IVPB SCH ×2 (00:49→08:43)
[2017-10-30 07:54] VITALS: BP 137/79; PULSE 94; TEMP 98.4
[2017-10-30] MEDS: Albuterol-Ipratrop 3 mg / 0.5 (3 ml) UD INH SCH ×2 (08:04→11:26)
[2017-10-30] MEDS: Budesonide 0.5 mg/2 ml Inhal Susp UD IH SCH (08:04)
[2017-10-30] MEDS: Metoprolol Succinate 50 mg XL Tab PO SCH (08:49)
[2017-10-30] MEDS: Latanoprost 0.005% Opht SOUTION OU SCH (08:50)
[2017-10-30 10:05] LABS: HEMOGLOBIN 9.1 g/dL (12.0-16.0); MEAN CELL VOLUME 78.7 fl (81.0-99.0); MEAN CORPUSCULAR HEMOGLOBIN 25.6 pg (27.0-31.0); MEAN CORPUSCULAR HGB CONC 32.5 g/dL (33.0-37.0); RBC 3.57 Mil/uL (3.80-5.20); RED CELL DISTRIBUTION WIDTH 16.4 % (11.5-14.5); WHITE BLOOD COUNT 8.3 K/uL (4.8-10.8)
--- NOTE | 2017-10-30 10:07 | CP.PCM.PN ---
Subjective - Date & Time of Evaluation Date of Evaluation: 10/30/17 Time of Evaluation: 10:03 - Subjective Subjective: Patient in bed No shortness of breath no difficulty breathing No nausea or vomiting Blood tests still pending for today Objective - Vital Signs/Intake and Output Vital Signs (last 24 hours): Temp Pulse Resp BP Pulse Ox 98.4 F 94 H 20 137/79 98 10/30/17 07:54 10/30/17 08:49 10/30/17 07:54 10/30/17 08:49 10/30/17 07:54 - Medications Medications: Current Medications Acetaminophen (Tylenol 325mg Tab) 650 mg PO Q6 PRN PRN Reason: Fever >100.4 F Last Admin: 10/26/17 00:38 Dose: 650 mg Albuterol Sulfate (Albuterol 0.083% Inhal Carmen (2.5 Mg/3 Ml) Ud) 2.5 mg INH RQ4 PRN PRN Reason: Shortness of Breath Albuterol/Ipratropium (Duoneb 3 Mg/0.5 Mg (3 Ml) Ud) 3 ml INH RQID [facility] Last Admin: 10/30/17 08:04 Dose: 3 ml Budesonide (Pulmicort Respules) 0.5 mg IH RBID [facility] Last Admin: 10/30/17 08:04 Dose: 0.5 mg Clotrimazole (Lotrimin 1% Cream) 1 applic TOP BID [facility] Last Admin: 10/30/17 08:46 Dose: 1 applic Docusate Sodium (Colace) 100 mg PO BID [facility] Last Admin: 10/30/17 08:45 Dose: 100 mg Ergocalciferol (Drisdol 50,000 Intl Units Cap) 1 cap PO QWK [facility] Last Admin: 10/28/17 08:35 Dose: 1 cap Ferrous Sulfate (Feosol) 325 mg PO BID [facility] Last Admin: 10/30/17 08:46 Dose: 325 mg Gabapentin (Neurontin) 300 mg PO TID [facility] Last Admin: 10/30/17 08:48 Dose: 300 mg Clindamycin Phosphate (Cleocin In Normal Saline) 600 mg in 50 mls @ 50 mls/hr IVPB Q8 [facility] PRN Reason: Protocol Last Admin: 10/30/17 08:43 Dose: 50 mls/hr Piperacillin Sod/Tazobactam (Sod 2.25 gm/ Sodium Chloride) 50 mls @ 50 mls/hr IVPB Q12 [facility] PRN Reason: Protocol Last Admin: 10/29/17 21:45 Dose: 50 mls/hr Lactic Acid (Lac-Hydrin 12% Lotion (225 G)) 1 applic TOP TID [facility] Last Admin: 10/30/17 08:47 Dose: 1 applic Latanoprost (Xalatan Opht) 1 drop OU DAILY [facility] Last Admin: 10/30/17 08:50 Dose: 1 drop Memantine (Namenda) 10 mg PO BID [facility] Last Admin: 10/30/17 08:47 Dose: 10 mg Metoprolol Succinate (Toprol Xl) 50 mg PO DAILY [facility] Last Admin: 10/30/17 08:49 Dose: 50 mg Montelukast Sodium (Singulair) 10 mg PO DAILY [facility] Last Admin: 10/30/17 08:48 Dose: 10 mg Pantoprazole Sodium (Protonix Ec Tab) 40 mg PO HS [facility] Last Admin: 10/29/17 22:21 Dose: 40 mg Paroxetine HCl (Paxil) 20 mg PO DAILY [facility] Last Admin: 10/30/17 08:48 Dose: 20 mg Pravastatin Sodium (Pravachol) 20 mg PO HS [facility] Last Admin: 10/29/17 22:21 Dose: 20 mg - Labs Labs: 10/28/17 10:23 10/29/17 08:24 - Constitutional Appears: No Acute Distress - ENT Exam ENT Exam: Mucous Membranes Moist - Neck Exam Neck Exam: absent: Lymphadenopathy - Respiratory Exam Respiratory Exam: NORMAL BREATHING PATTERN. absent: Chest Wall Tenderness - Cardiovascular Exam Cardiovascular Exam: absent: Gallop, JVD, Rubs - GI/Abdominal Exam GI & Abdominal Exam: Soft, Normal Bowel Sounds - Extremities Exam Extremities Exam: absent: Calf Tenderness - Back Exam Back Exam: absent: CVA tenderness (L), CVA tenderness (R) - Neurological Exam Neurological Exam: Altered - Skin Skin Exam: absent: Cyanosis Assessment and Plan (1) Acute kidney injury Assessment & Plan: Acute kidney injury appeared to be improving although SMA-7 still pending this morning Serum iron and ferritin came back to be very low consistent with iron deficiency anemia my recommendation patient name Thien, for the cause of this anemia such GI workup including endoscopy perhaps could be done as outpatient in [place] time I suggest to give one dose of Venofer today before she leaves the hospital and continue with the oral iron or outpatient Venofer for 5 more doses if need to be. Status: Acute (2) Cellulitis of left leg Status: Acute (3) CHF (congestive heart failure), NYHA class II Status: Acute
[2017-10-30 10:21] LABS: ALB/GLOB RATIO 1.2 (1.0-2.1); ALBUMIN 3.6 g/dL (3.5-5.0); CALCIUM 8.9 mg/dL (8.4-10.2)
[2017-10-30] MEDS: Piperacillin/Tazobact 2.25 GM in Sodium Chloride 0.9% 50 ML IVPB SCH (10:47)
--- NOTE | 2017-10-30 13:42 | CP.PCM.PN ---
Subjective - Date & Time of Evaluation Date of Evaluation: 10/30/17 Time of Evaluation: 13:39 - Subjective Subjective: Lying in bed, appears comfortable. Occasional non-productive cough. Vital signs have remained stable. No leukocytosis, Fe deficiency anemia. Persistent/recurrent right pleural effusion. Last stress myocardial scan done 09/03/17 did show ischemia in the inferior wall. On exam there are few rhonchi and dry rales in the LLL. On the right breath sounds are absent in the base. Rhonchi and medium rales are present in the mid chest posteriorly. Plan is for discharge to [facility] today and continue medical management. Objective - Vital Signs/Intake and Output Vital Signs (last 24 hours): Temp Pulse Resp BP Pulse Ox 98.4 F 94 H 20 137/79 98 10/30/17 07:54 10/30/17 08:49 10/30/17 07:54 10/30/17 08:49 10/30/17 07:54 - Medications Medications: Current Medications Acetaminophen (Tylenol 325mg Tab) 650 mg PO Q6 PRN PRN Reason: Fever >100.4 F Last Admin: 10/26/17 00:38 Dose: 650 mg Albuterol Sulfate (Albuterol 0.083% Inhal Carmen (2.5 Mg/3 Ml) Ud) 2.5 mg INH RQ4 PRN PRN Reason: Shortness of Breath Albuterol/Ipratropium (Duoneb 3 Mg/0.5 Mg (3 Ml) Ud) 3 ml INH RQID [facility] Last Admin: 10/30/17 11:26 Dose: 3 ml Budesonide (Pulmicort Respules) 0.5 mg IH RBID [facility] Last Admin: 10/30/17 08:04 Dose: 0.5 mg Clotrimazole (Lotrimin 1% Cream) 1 applic TOP BID [facility] Last Admin: 10/30/17 08:46 Dose: 1 applic Docusate Sodium (Colace) 100 mg PO BID [facility] Last Admin: 10/30/17 08:45 Dose: 100 mg Ergocalciferol (Drisdol 50,000 Intl Units Cap) 1 cap PO QWK [facility] Last Admin: 10/28/17 08:35 Dose: 1 cap Ferrous Sulfate (Feosol) 325 mg PO BID [facility] Last Admin: 10/30/17 08:46 Dose: 325 mg Gabapentin (Neurontin) 300 mg PO TID [facility] Last Admin: 10/30/17 08:48 Dose: 300 mg Piperacillin Sod/Tazobactam (Sod 2.25 gm/ Sodium Chloride) 50 mls @ 50 mls/hr IVPB Q12 CRISTAL PRN Reason: Protocol Last Admin: 10/30/17 10:47 Dose: 50 mls/hr Iron Sucrose 100 mg/ Sodium (Chloride) 105 mls @ 105 mls/hr IVPB DAILY [facility] Last Admin: 10/30/17 10:53 Dose: 105 mls/hr Clindamycin Phosphate (Cleocin In Normal Saline) 600 mg in 50 mls @ 50 mls/hr IVPB Q8 CRISTAL PRN Reason: Protocol Lactic Acid (Lac-Hydrin 12% Lotion (225 G)) 1 applic TOP TID [facility] Last Admin: 10/30/17 08:47 Dose: 1 applic Latanoprost (Xalatan Opht) 1 drop OU DAILY [facility] Last Admin: 10/30/17 08:50 Dose: 1 drop Memantine (Namenda) 10 mg PO BID [facility] Last Admin: 10/30/17 08:47 Dose: 10 mg Metoprolol Succinate (Toprol Xl) 50 mg PO DAILY [facility] Last Admin: 10/30/17 08:49 Dose: 50 mg Montelukast Sodium (Singulair) 10 mg PO DAILY [facility] Last Admin: 10/30/17 08:48 Dose: 10 mg Pantoprazole Sodium (Protonix Ec Tab) 40 mg PO HS [facility] Last Admin: 10/29/17 22:21 Dose: 40 mg Paroxetine HCl (Paxil) 20 mg PO DAILY [facility] Last Admin: 10/30/17 08:48 Dose: 20 mg Pravastatin Sodium (Pravachol) 20 mg PO HS [facility] Last Admin: 10/29/17 22:21 Dose: 20 mg - Labs Labs: 10/30/17 09:57 10/30/17 09:57 Assessment and Plan (1) Asthma Status: Chronic (2) Diastolic CHF Status: Chronic (3) Pleural effusion Status: Chronic (4) Demand ischemia of myocardium Status: Chronic
--- NOTE | 2017-10-30 15:23 | CP.PCM.DIS ---
Provider - Provider Date of Admission: 10/21/17 21:06 Attending physician: Ariel Gaviria MD Primary care physician: Martinez Hameed MD Time Spent in preparation of Discharge (in minutes): 30 Diagnosis - Discharge Diagnosis (1) Acute kidney injury Status: Acute (2) Cellulitis of left leg Status: Acute (3) Pneumonia Status: Acute Hospital Course - Lab Results Lab Results: Micro Results 10/26/17 10:30 Blood Blood Culture - Preliminary NO GROWTH AFTER 4 DAYS 10/27/17 10:09 Blood Blood Culture - Preliminary NO GROWTH AFTER 3 DAYS 10/26/17 06:30 Blood Blood Culture - Preliminary NO GROWTH AFTER 4 DAYS 10/22/17 09:20 Blood-Venous Blood Culture - Final NO GROWTH AFTER 5 DAYS 10/22/17 09:20 Blood-Venous Gram Stain - Final TEST NOT PERFORMED 10/22/17 09:00 Blood-Venous Blood Culture - Final NO GROWTH AFTER 5 DAYS 10/22/17 09:00 Blood-Venous Gram Stain - Final TEST NOT PERFORMED 10/21/17 19:30 Blood Blood Culture - Final NO GROWTH AFTER 5 DAYS 10/21/17 19:30 Blood Gram Stain - Final TEST NOT PERFORMED 10/21/17 20:06 Blood S.aureus & Coag-Neg Staph PNA FISH - Final TEST NOT PERFORMED 10/21/17 20:06 Blood Blood Culture - Final Streptococcus Viridans Corynebacterium Diphteriae 10/21/17 20:06 Blood Gram Stain - Final 10/21/17 21:30 Urine Urine Culture - Final Proteus Mirabilis Most Recent Lab Values WBC 8.3 K/uL (4.8-10.8) 10/30/17 09:57 RBC 3.57 Mil/uL (3.80-5.20) L 10/30/17 09:57 Hgb 9.1 g/dL (12.0-16.0) L 10/30/17 09:57 Hct 28.1 % (34.0-47.0) L 10/30/17 09:57 MCV 78.7 fl (81.0-99.0) L 10/30/17 09:57 MCH 25.6 pg (27.0-31.0) L 10/30/17 09:57 MCHC 32.5 g/dL (33.0-37.0) L 10/30/17 09:57 RDW 16.4 % (11.5-14.5) H 10/30/17 09:57 Plt Count 180 K/uL (130-400) 10/30/17 09:57 MPV 9.1 fl (7.2-11.7) 10/27/17 11:07 Neut % (Auto) 74.2 % (50.0-75.0) 10/27/17 11:07 Lymph % (Auto) 12.5 % (20.0-40.0) L 10/27/17 11:07 Castro % (Auto) 7.8 % (0.0-10.0) 10/27/17 11:07 Eos % (Auto) 4.6 % (0.0-4.0) H 10/27/17 11:07 Baso % (Auto) 0.9 % (0.0-2.0) 10/27/17 11:07 Neut # (Auto) 6.0 K/uL (1.8-7.0) 10/27/17 11:07 Lymph # (Auto) 1.0 K/uL (1.0-4.3) 10/27/17 11:07 Castro # (Auto) 0.6 K/uL (0.0-0.8) 10/27/17 11:07 Eos # (Auto) 0.4 K/uL (0.0-0.7) 10/27/17 11:07 Baso # (Auto) 0.1 K/uL (0.0-0.2) 10/27/17 11:07 Sodium 143 mmol/l (132-148) 10/30/17 09:57 Potassium 5.1 MMOL/L (3.6-5.0) H 10/30/17 09:57 Chloride 104 mmol/L (98-107) 10/30/17 09:57 Carbon Dioxide 25 mmol/L (22-30) 10/30/17 09:57 Anion Gap 19 (10-20) 10/30/17 09:57 BUN 87 mg/dl (7-17) H 10/30/17 09:57 Creatinine 2.9 mg/dl (0.7-1.2) H 10/30/17 09:57 Est GFR ( Amer) 19 10/30/17 09:57 Est GFR (Non-Af Amer) 15 10/30/17 09:57 Random Glucose 163 mg/dL (65-105) H 10/30/17 09:57 Lactic Acid 2.2 MMOL/L (0.7-2.1) H 10/21/17 19:49 Calcium 8.9 mg/dL (8.4-10.2) 10/30/17 09:57 Phosphorus 3.5 mg/dl (2.5-4.5) 10/21/17 19:49 Magnesium 2.1 MG/DL (1.6-2.3) 10/21/17 19:49 Iron 26 ug/dL (37-170) L 10/29/17 13:02 TIBC 249 ug/dL (250-450) L 10/29/17 13:02 % Saturation 10 % (20-55) L 10/29/17 13:02 Ferritin 68.0 ng/Ml (11.1-264.0) 10/29/17 12:23 Total Bilirubin 0.4 mg/dl (0.2-1.3) 10/30/17 09:57 AST 22 U/L (14-36) 10/30/17 09:57 ALT 27 U/L (9-52) 10/30/17 09:57 Alkaline Phosphatase 44 U/L (38-126) 10/30/17 09:57 Troponin I < 0.0120 ng/mL (0.00-0.120) 10/21/17 19:49 NT-Pro-B Natriuret Pep 1970 pg/ml (0-900) H 10/24/17 16:37 Total Protein 6.5 G/DL (6.3-8.2) 10/30/17 09:57 Albumin 3.6 g/dL (3.5-5.0) 10/30/17 09:57 Globulin 3.0 gm/dL (2.2-3.9) 10/30/17 09:57 Albumin/Globulin Ratio 1.2 (1.0-2.1) 10/30/17 09:57 Urine Color Yellow (YELLOW) 10/21/17 21:30 Urine Clarity Cloudy (Clear) 10/21/17 21:30 Urine pH 6.0 (5.0-8.0) 10/21/17 21:30 Ur Specific Webster 1.017 (1.003-1.030) 10/21/17 21:30 Urine Protein Negative mg/dL (NEGATIVE) 10/21/17 21:30 Urine Glucose (UA) Neg mg/dL (Normal) 10/21/17 21:30 Urine Ketones Negative mg/dL (NEGATIVE) 10/21/17 21:30 Urine Blood Small (NEGATIVE) 10/21/17 21:30 Urine Nitrate Negative (NEGATIVE) 10/21/17 21:30 Urine Bilirubin Negative (NEGATIVE) 10/21/17 21:30 Urine Urobilinogen 2.0 mg/dL (0.2-1.0) H 10/21/17 21:30 Ur Leukocyte Esterase Mod Shelby/uL (Negative) 10/21/17 21:30 Urine RBC (Auto) 8 /hpf (0-3) H 10/21/17 21:30 Urine Microscopic WBC 19 /hpf (0-5) H 10/21/17 21:30 Ur Squamous Epith Cells 2 /hpf (0-5) 10/21/17 21:30 Urine Bacteria Rare (<OCC) 10/21/17 21:30 Hyaline Casts 0-2 /hpf (0-2) 10/21/17 21:30 Vancomycin Trough 14.2 ug/mL (5.0-10.0) H 10/23/17 08:00 Influenza Typ A,B (EIA) Negative for flu a/b (NEGATIVE) 10/23/17 12:43 - Hospital Course Hospital Course: 86 YO F w/ PMH of HTN, HLD, was admitted after patient was admitted for cellultiis of the left leg 1) Diastolic Heart Failure: Acute on chronic - EF: preserved EF of 75 % 2) Rash over left lower leg: Possibly Cellulitis ( RESOLVED) - ID on board - Patient recieved IV antibiotics. Cellulites resolved 3) Acute on chronic renal failure ( improved) - Creatinine trended down from 4 to 2.9 4) UTI caused by proteus -Patient recieved IV Zosyn in the hospital Discharge Exam - Head Exam Head Exam: NORMAL INSPECTION - Eye Exam Eye Exam: Normal appearance - Respiratory Exam Respiratory Exam: absent: Accessory Muscle Use, Wheezes, Respiratory Distress Additional comments: crackles at the bases b/l - Cardiovascular Exam Cardiovascular Exam: +S1, +S2 - GI/Abdominal Exam GI & Abdominal Exam: Normal Bowel Sounds, Soft. absent: Tenderness - Neurological Exam Neurological exam: Alert, CN II-XII Intact Additional comments: baseline dementia Discharge Plan - Discharge Medications Prescriptions: Clindamycin [Cleocin] 300 mg PO Q12 #10 cap Piperacill/Tazo 2.25gm in Dex [Zosyn 2.25 Gm IV Premix] 2.25 gm IVPB Q12 #10 bag - Follow Up Plan Condition: FAIR Disposition: REHAB FACILITY/REHAB UNIT Instructions: Cellulitis (DC), Pleural Effusion (DC), Pneumonia (DC) Additional Instructions: follow up with Dr. Hameed in 7-10 days Referrals: Martinez Hameed MD [Primary Care Provider] -
[2017-10-30] MEDS ORDERED: Clindamycin 600mg/50ml NS 600 MG/50 ML BAG IVPB SCH (17:00)
== END 2017-10-30 14:09 | DRG 291 ==
LOC: H.ER 18:44 → H.ERHOLD 21:06 → H.TEL 22:52 → H.MEDSURG1 10-23 15:01
PROVIDERS: ADMIT Family Medicine; ATTEND Family Medicine
DX: I13.0 Hypertensive heart and chronic kidney disease with heart failure and stage 1 through stage 4 chronic kidney disease, or unspecified chronic kidney disease (principal); I50.33 Acute on chronic diastolic (congestive) heart failure; J15.9 Unspecified bacterial pneumonia; L03.116 Cellulitis of left lower limb; N17.9 Acute kidney failure, unspecified; N39.0 Urinary tract infection, site not specified; J44.0 Chronic obstructive pulmonary disease with (acute) lower respiratory infection; I24.8 Other forms of acute ischemic heart disease; N18.9 Chronic kidney disease, unspecified; B96.4 Proteus (mirabilis) (morganii) as the cause of diseases classified elsewhere; Y95 Nosocomial condition; F03.90 Unspecified dementia, unspecified severity, without behavioral disturbance, psychotic disturbance, mood disturbance, and anxiety; E78.5 Hyperlipidemia, unspecified; D50.9 Iron deficiency anemia, unspecified; E78.00 Pure hypercholesterolemia, unspecified; M19.90 Unspecified osteoarthritis, unspecified site; M81.0 Age-related osteoporosis without current pathological fracture; F32.9 Major depressive disorder, single episode, unspecified; Z87.01 Personal history of pneumonia (recurrent); Z96.642 Presence of left artificial hip joint

== ENCOUNTER 2017-11-12 17:49 | Inpatient (IN) | payer MEDICARE, MEDICAID ==
[2017-11-12 18:02] VITALS: BMI 29.9
--- NOTE | 2017-11-12 18:06 | ED PDOC ---
HPI:STROKE - Time Time: 18:05 - Historian Historian: Patient, EMS - Chief Complaint Chief Complaint: Slurred speech - Onset Date: 11/11/17 Time: 18:00 - TPA Positive for Contraindication: Yes Reason tPA is not being Administered: last know well beyond 12 hrs - Notes: Notes:: Pt. found to be with slurred speech per family yesterday around 6pm. Brought to ER today for it. No numbness, tingles, weakness, headaches, abd pain, headaches, chest pain. Pt. states she feels fine. Pt. lives at [facility]. Pt. had 325mg ASA today. NIHSS Stroke Scale - Date/Time Evaluation Performed Date Performed: 11/12/17 Time Performed: 18:07 When Was NIHSS Performed: Baseline - How Severe is the Stroke Level of Consciousness: 0=Alert LOC to Questions: 0=Both comments correct LOC to commands: 0=Obeys both correctly Best Gaze: 0=Normal Visual: 0=No visual loss Facial: 0=Normal Motor Arm - Left: 0=No drift Motor Arm - Right: 0=No drift Motor Leg - Left: 0=No drift Motor Leg - Right: 0=No drift Limb Ataxia: 0=Absent Sensory: 0=Normal Best Language: 0=No aphasia Dysarthia: 1=Mild to moderate slurring Extinction & Inattention (Neglect): 0=Normal, no object Score: 1 rTPA Inclusion/Exclusion - Refusal of Treatment Patient Refused Treatment: No - Inclusion Criteria for Altepase Patient is 18 years or Older: Yes The Clinical Diagnosis of Ischemic Stroke That is Causing a Potentially Disabling Neurological Deficit: No Time of Onset is Well Established to be Less Than 270 Minute Before Treatment Would Begin: No Risk/Benefit Discussed With Patient/Family Member Present: No Past Medical History Vital Signs: Last Vital Signs Temp 97.8 F 11/12/17 17:54 Pulse 61 11/12/17 17:54 Resp 22 11/12/17 17:54 BP 167/51 H 11/12/17 17:54 Pulse Ox - Medical History PMH: Anemia, Arthritis, Asthma, Bronchitis, COPD, Dementia, Depression, Diverticulitis, HTN, Hypercholesterolemia, Osteoporosis, Pneumonia Denies: Alzheimer's Disease, Anxiety, Atrial Fibrillation, Bipolar Disorder, CAD, Cardia Arrhythmia, CHF, Crohn's Disease, Emphysema, Fractures, Gastritis, Gall Bladder Disease, HIV, Hyperthyroidism, Hypothyroidism, Kidney Stones, Migraine, Mitral Valve Prolapse, Multiple Sclerosis, Pancreatitis, Paranoia, Parkinson's Disease, Peripheral Edema, Post Traumatic Stress Disorder, Pulmonary Embolism, Chronic Kidney Disease, Rheumatoid Arthritis, Schizophrenia , Seizures, Sickle Cell Disease, Sexually Transmitted Disease, Sleep Apnea, TIA - Surgical History Surgical History: Denies: Appendectomy, CABG, Carotid Endarterectomy, Cholecystectomy, Coronary Stent, Pacemaker, Tonsillectomy - Family History Family History: States: Unknown Family Hx - Living Arrangements Living Arrangements: Care Home/Assist Lv - Home Medications Home Medications: Ambulatory Orders Medication Instructions Recorded Albuterol 0.083% [Albuterol 0.083% 2.5 mg INH RQ4 PRN #1 vial 09/30/17 Inhal Carmen (2.5 mg/3 ml) UD] Metoprolol Succinate [Toprol XL] 50 mg PO DAILY #30 tab 09/30/17 Paroxetine HCl [Paxil] 20 mg PO DAILY #30 tablet 09/30/17 Pravastatin Sodium [Pravachol] 20 mg PO HS #30 tablet 09/30/17 Omeprazole 20 mg PO HS 10/21/17 Ferrous Sulfate [Feosol] 325 mg PO BID tab 10/29/17 Acetaminophen [Tylenol 325mg tab] 650 mg PO Q4 PRN 11/12/17 Acetaminophen [Tylenol 325mg tab] 650 mg PO Q4 PRN 11/12/17 Ammonium Lactate 12% [Lac-Hydrin 1 applic TOP Q12 11/12/17 12% Lotion (225 g)] Bimatoprost [Lumigan] 1 drop BOTHEYES HS 11/12/17 Ergocalciferol (Vitamin D2) 50,000 unit PO FR 11/12/17 [Vitamin D2] Gabapentin [Neurontin] 300 mg PO Q8 11/12/17 Lactulose [Generlac] 15 ml PO Q12 PRN 11/12/17 Mag Hydrox/Aluminum Hyd/Simeth 30 ml PO Q4 PRN 11/12/17 [Maalox Advanced Suspension] Magnesium Hydroxide [Milk Of 30 ml PO DAILY PRN 11/12/17 Magnesia] Memantine [Namenda] 10 mg PO Q12 11/12/17 Montelukast [Singulair] 10 mg PO HS 11/12/17 Vitamin A & D [Vitamin A & D Oint 1 appl TOP QSHIFT 02/28/18 UD Foilpak] - Allergies Allergies/Adverse Reactions: Allergies Allergy/AdvReac Type Severity Reaction Status Date / Time No Known Allergies Allergy Verified 11/12/17 18:02 Review of Systems ROS Statement: Except As Marked, All Systems Reviewed And Found Negative Neurological: Positive for: Change in Speech Physical Exam - Reviewed Nursing Documentation Reviewed: Yes Vital Signs Reviewed: Yes - Physical Exam Appears: Positive for: Non-toxic, No Acute Distress Head Exam: Positive for: ATRAUMATIC, NORMAL INSPECTION, NORMOCEPHALIC Skin: Positive for: Normal Color, Warm, DRY Eye Exam: Positive for: EOMI, Normal appearance, PERRL ENT: Positive for: Normal ENT Inspection Neck: Positive for: Normal, Painless ROM Cardiovascular/Chest: Positive for: Regular Rate, Rhythm Respiratory: Positive for: CNT, Normal Breath Sounds Gastrointestinal/Abdominal: Positive for: Normal Exam, Bowel Sounds, Soft. Negative for: Tenderness Back: Positive for: Normal Inspection. Negative for: L CVA Tenderness, R CVA Tenderness Extremity: Positive for: Normal ROM. 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 Negative for: Motor/Sensory Deficits (4/5 strength b/l), Facial Droop - Laboratory Results Result Diagrams: 11/12/17 18:34 11/12/17 21:55 Interpretation Of Abn Labs: 35 bun; 6.5 k - ECG ECG: Positive for: Interpreted By Me, Viewed By Me ECG Rhythm: Positive for: Normal QRS, Normal ST Segment, Sinus Rhythm - Radiology X-Ray: Read By Radiologist X-Ray Interpretation: No Acute Disease - CT Scan/US ct Other Rad Studies (CT/US): Read By Radiologist Other Rad Interpretation: no acute - Progress ED Course And Treament: 2231: Stable. AAOx3. Pain free. Spoke with Dr. Gaviria. Will admit tele. He will give further orders. Took ASA at [place]. 2308: stable. Spoke with Dr. Bowden. Will consult. Continue current tx. Unable to get Dr. Galvez. Disposition - Clinical Impression Clinical Impression: CVA (cerebral vascular accident), Hyperkalemia - Patient ED Disposition Is Patient to be Admitted: Yes Counseled Patient/Family Regarding: Studies Performed, Diagnosis - Disposition Disposition Time: 22:33 Condition: FAIR - Pt Status Changed To: Hospital Disposition Of: Inpatient - Admit Certification Admit to Inpatient:: After my assessment, the patient will require hospitalization for at least two midnights. This is because of the severity of symptoms shown, intensity of services needed, and/or the medical risk in this patient being treated as an outpatient. - POA Present On Arrival: None
[2017-11-12] MEDS: Sodium Chloride 0.9% 1,000 ML IV SCH (18:16)
[2017-11-12 18:41] LABS: BASO % 0.4 % (0.0-2.0); EOS % 0.1 % (0.0-4.0); LYMPH # 0.9 K/uL (1.0-4.3); LYMPH % 8.6 % (20.0-40.0); MEAN CORPUSCULAR HEMOGLOBIN 25.8 pg (27.0-31.0); MEAN PLATELET VOLUME 8.8 fl (7.2-11.7); MONO # 0.7 K/uL (0.0-0.8); MONO % 6.1 % (0.0-10.0); NEUT # 9.3 K/uL (1.8-7.0); NEUT % 84.8 % (50.0-75.0); PLATELET COUNT 220 K/uL (130-400); RBC 3.89 Mil/uL (3.80-5.20); RED CELL DISTRIBUTION WIDTH 18.4 % (11.5-14.5)
[2017-11-12 18:45] LABS: MEAN CELL VOLUME 83.3 fl (81.0-99.0)
--- NOTE | 2017-11-12 18:59 | CT ---
PROCEDURE: CT HEAD WITHOUT CONTRAST. HISTORY: stroke eval COMPARISON: Noncontrast head CT performed 08/25/16 TECHNIQUE: Axial computed tomography images were obtained through the head/brain without intravenous contrast. Radiation dose: Total exam DLP = 1258.42 mGy-cm. This CT exam was performed using one or more of the following dose reduction techniques: Automated exposure control, adjustment of the mA and/or kV according to patient size, and/or use of iterative reconstruction technique. FINDINGS: HEMORRHAGE: No intracranial hemorrhage. BRAIN: Diffuse atrophy with prominence of the ventricles and sulci noted. No mass effect or edema. Intracranial atherosclerosis. Along the left falx, (series 4, image 45), there is a 4 mm tiny meningioma versus dural calcification. Mild scattered white matter hypodensities, which are nonspecific, but often seen with chronic microvascular ischemic disease. VENTRICLES: No hydrocephalus. CALVARIUM: Unremarkable. PARANASAL SINUSES: Small fluid in the left sphenoid sinus. Limited visualization of the remainder paranasal sinuses appear clear. MASTOID AIR CELLS: Opacification of the bilateral mastoid air cells; correlate for mastoiditis. OTHER FINDINGS: None. IMPRESSION: Mild atrophy. Mild nonspecific white matter changes. Please note that MRI with diffusion imaging is more sensitive in the detection of acute ischemic event. Opacification of the bilateral mastoid air cells; correlate clinically for mastoiditis. Small fluid, left sphenoid sinus. Remainder of the visualized paranasal sinuses appear clear.
[2017-11-12 19:05] LABS: INR 1.1 (0.9-1.2); PARTIAL THROMBOPLASTIN TIME 27.3 Seconds (25.6-37.1); PROTHROMBIN TIME 12.7 Seconds (9.8-13.1)
[2017-11-12 19:21] LABS: BASOPHIL 1 % (0-2); LYMPHOCYTE 5 % (20-50); MONOCYTE 6 % (0-10); NEUTROPHIL 88 % (42-75); PLATELET ESTIMATE NORMAL (NORMAL); ROULEAUX FORMATION SLIGHT; TOTAL CELLS COUNTED 100
[2017-11-12 19:22] LABS: ANISOCYTOSIS SLIGHT; HYPOCHROMIC MODERATE; POIKILOCYTOSIS SLIGHT
[2017-11-12 19:23] LABS: ALB/GLOB RATIO 1.1 (1.0-2.1); ALBUMIN 3.8 g/dL (3.5-5.0); ALT/SGPT 152 U/L (9-52); AST/SGOT 168 U/L (14-36); BLOOD UREA NITROGEN 35 mg/dl (7-17); CALCIUM 9.2 mg/dL (8.4-10.2); GFR AFRICAN-AMERICAN > 60; GFR NON-AFRICAN AMERICAN 53; HDL CHOLESTEROL 43 MG/DL (30-70); OVALOCYTES SLIGHT; STOMATOCYTES SLIGHT; TARGET CELLS SLIGHT
[2017-11-12 19:24] LABS: TEARDROP CELLS SLIGHT; TOXIC GRANULATION PRESENT
[2017-11-12 19:29] LABS: LDL CHOLESTEROL 48 mg/dL (0-129)
[2017-11-12] MEDS ORDERED: Albuterol-Ipratrop 3 mg / 0.5 (3 ml) UD IH STA (20:36)
[2017-11-12] MEDS ORDERED: Albuterol-Ipratrop 3 mg / 0.5 (3 ml) UD INH STA (20:36)
[2017-11-12] MEDS ORDERED: Albuterol-Ipratrop 3 mg / 0.5 (3 ml) UD ONE (21:21)
[2017-11-12] MEDS ORDERED: Dextrose 50% SYRINGE Inj (50 ml) IVP ONE (22:25)
[2017-11-12] MEDS ORDERED: Insulin Regular 100 units/ml IV STA (22:26)
[2017-11-12] MEDS ORDERED: Dextrose 50% SYRINGE Inj (50 ml) ONE (22:46)
[2017-11-12] MEDS ORDERED: Insulin Regular 100 units/ml ONE (22:48)
[2017-11-13 06:31] LABS: HEMOGLOBIN 10.5 g/dL (12.0-16.0); MEAN CELL VOLUME 82.4 fl (81.0-99.0); MEAN CORPUSCULAR HEMOGLOBIN 26.2 pg (27.0-31.0); MEAN CORPUSCULAR HGB CONC 31.8 g/dL (33.0-37.0); RBC 4.02 Mil/uL (3.80-5.20); RED CELL DISTRIBUTION WIDTH 18.1 % (11.5-14.5)
[2017-11-13 06:44] LABS: ALB/GLOB RATIO 1.1 (1.0-2.1); ALBUMIN 3.7 g/dL (3.5-5.0); ALT/SGPT 156 U/L (9-52); AST/SGOT 110 U/L (14-36); BLOOD UREA NITROGEN 36 mg/dl (7-17); CALCIUM 9.4 mg/dL (8.4-10.2); GFR AFRICAN-AMERICAN > 60; GFR NON-AFRICAN AMERICAN 60
[2017-11-13] MEDS: Sodium Chloride 0.9% 1,000 ML IV SCH (06:54)
[2017-11-13] MEDS ORDERED: Dextrose 50% SYRINGE Inj (50 ml) IVP ONE (08:00)
[2017-11-13] MEDS ORDERED: Insulin Regular 100 units/ml IV STA (08:01)
[2017-11-13] MEDS ORDERED: Sod Polystyrene Sulf 15 gm/60 ml Susp PO ONE (08:03)
--- NOTE | 2017-11-13 08:45 | PCM.RRT ---
<Janet Perez - Last Filed: 11/13/17 08:45> I.Reason for SHUTTLELESS LOOM WEAVER - A) Acute Change in Patient: Subjective: 86 yo F admitted with slurred speech and hyperkalemia had SHUTTLELESS LOOM WEAVER called for elevated BP 211/138 mm Hg. SHUTTLELESS LOOM WEAVER called at 7:46am. S: On arrival, patient laying in bed, responsive to verbal stimuli, oriented to place. Pt able to move extremities. Denied chest pain, shortness of breath. O: Repeat BP measurement 193/68 mmHg. HR 57, 100% O2 saturation. Repeat BP 180/72 mmHg, HR 58, 100% O2 saturation. Breath sounds with some scattered rhonchi. No respiratory distress or other acute distress observed. EKG done: rate 57, no acute changes when compared to prior EKG, no marked peaked T waves Blood glucose: 139 During SHUTT[employer] LOOM WEAVER pt's am labs reviewed- noted to have K of 6.3, s/p 5 units IV insulin and D50 50ml x1 received in ED last night. Assessment: 86 yo F with elevated bp, readings improved on repeat measurements. Hyperkalemia. Plan: 40 mg IV lasix 10 units IV regular insulin 30 gm KayeXALATE Repeat blood glucose in 30 min and 60 min after administration of medications BMP ordered for 9 am. SHUTT[employer]LESS LOOM WEAVER concluded 8:[address] Gaviria made aware Pt was seen and discussed with hospitalist Dr. Torres who was present for the SHUTT[employer]ESS LOOM WE[employer]ER. <Olive Torres - Last Filed: 11/13/17 17:51> SH[employer] Nurse Assessment - Vital Signs Vital Signs: Rapid Response Vital Sign Blood Pressure 211/138 Pulse Rate 58 Respiratory Rate 21 Oxygen Saturation 98 - Vital Signs at end of SHUTTLELESS LOOM WEAVER Vital Signs at end of SHUTTLELESS LOOM WEAVER: Rapid Response End Vital Sign Blood Pressure 180/72 Pulse Rate 58 Respiratory Rate 21 O2 Sat by Pulse Oximetry 98 Attending/Attestation - Attestation I have personally seen and examined this patient.: Yes I have fully participated in the care of the patient.: Yes I have reviewed all pertinent clinical information, including history, physical exam and plan: Yes Notes (Text): 11/13/17 17:46 SHUTTLELESS LOOM WEAVER called bec of uncontrolled HTN 1. Hypertensive Urgency 2. Hyperkalemia - pt denies any sxs - EKG : no change from previous - Lung s; min rales bases - no focal neuro deficit, pt is alert, oriented, follows commands -Lasix IV given - D50 + Insulin and Kayexalate -rpt BMP - DR Gaviria informed of event
--- NOTE | 2017-11-13 08:59 | CP.PCM.HP ---
<Feliberto Wagner - Last Filed: 11/13/17 13:28> History of Present Illness - History of Present Illness History of Present Illness: Hx taken from patient and medical records. Patient poor historian/Dementia 86 year old female with previous medical history of dementia, HTN, HLD, OA brought by family yesterday to ED with c/o new onset slurred speech. She was found to be hypertensive and hyperkalemic. Patient was admitted to telemetry unit after CT head showed no ischemic or hemorrhagic changes. Early monir nurse called ONCOLOGIST because patient's BP was very high. Patient was treated with antihypertensives and kayexalate. At the time of exam patient has no complains, denies headache, vision troubles, CP, abd pain, SOB. Patient seems slightly confused and aphasic. BP stable. Patient has also Hx of recurrent pleural effusions offered VATS procedure on previous admission to hosp but her POA declined. Present on Admission - Present on Admission Any Indicators Present on Admission: No Review of Systems - Review of Systems All systems: reviewed and no additional remarkable complaints except Review of Systems: As per HPI Past Patient History - Past Medical History & Family History Past Medical History?: Yes - Past Social History Smoking Status: Never Smoked - CARDIAC Hx Atrial Fibrillation: No Hx Cardia Arrhythmia: No Hx Congestive Heart Failure: No Hx Hypercholesterolemia: Yes Hx Hypertension: Yes Hx Mitral Valve Prolapse: No Hx Pacemaker: No Hx Peripheral Edema: No - PULMONARY Hx Asthma: Yes Hx Bronchitis: Yes Hx Chronic Obstructive Pulmonary Disease (COPD): Yes Hx Emphysema: No Hx Pneumonia: Yes Hx Pulmonary Embolism: No Hx Sleep Apnea: No - NEUROLOGICAL Hx Alzheimer's Disease: No Hx Dementia: Yes Hx Migraine: No Hx Multiple Sclerosis: No Hx Parkinson's Disease: No Hx Seizures: No Hx Transient Ischemic Attacks (TIA): No - HEENT Hx HEENT Problems: No - RENAL Hx Chronic Kidney Disease: No Hx Kidney Stones: No - ENDOCRINE/METABOLIC Hx Hyperthyroidism: No Hx Hypothyroidism: No - HEMATOLOGICAL/ONCOLOGICAL Hx Anemia: Yes Hx Human Immunodeficiency Virus (HIV): No Hx Sickle Cell Disease: No - INTEGUMENTARY Hx Dermatological Problems: No - MUSCULOSKELETAL/RHEUMATOLOGICAL Hx Arthritis: Yes Hx Falls: No Hx Fractures: No Hx Osteoporosis: Yes Hx Rheumatoid Arthritis: No - GASTROINTESTINAL Hx Crohn's Disease: No Hx Diverticulitis: Yes Hx Gall Bladder Disease: No Hx Gastritis: No Hx Pancreatitis: No - GENITOURINARY/GYNECOLOGICAL Hx Sexually Transmitted Disorders: No - PSYCHIATRIC Hx Anxiety: No Hx Bipolar Disorder: No Hx Depression: Yes Hx Paranoia: No Hx Post Traumatic Stress Disorder: No Hx Schizophrenia: No Hx Substance Use: No - SURGICAL HISTORY Hx Appendectomy: No Hx Carotid Endarterectomy: No Hx Cholecystectomy: No Hx Coronary Artery Bypass Graft: No Hx Coronary Stent: No Hx Tonsillectomy: No - ANESTHESIA Hx Anesthesia: Yes Hx Anesthesia Reactions: No Hx Malignant Hyperthermia: No Meds Allergies/Adverse Reactions: Allergies Allergy/AdvReac Type Severity Reaction Status Date / Time No Known Allergies Allergy Verified 11/12/17 18:02 Physical Exam - Constitutional Appears: Non-toxic, Confused - Eye Exam Eye Exam: EOMI, PERRL - ENT Exam ENT Exam: Mucous Membranes Moist - Respiratory Exam Respiratory Exam: Clear to Auscultation Bilateral, NORMAL BREATHING PATTERN. absent: Rales - Cardiovascular Exam Cardiovascular Exam: REGULAR RHYTHM, +S1, +S2. absent: Gallop - GI/Abdominal Exam GI & Abdominal Exam: Normal Bowel Sounds, Soft. absent: Tenderness - Extremities Exam Extremities exam: Negative for: calf tenderness, pedal edema - Neurological Exam Neurological exam: Alert, Motor Sensory Deficit (Generalized weakness) - Skin Skin Exam: Normal Color, Warm Results - Vital Signs Recent Vital Signs: Last Vital Signs Temp 98 F 11/13/17 08:00 Pulse 58 L 11/13/17 08:00 Resp 20 11/13/17 08:00 BP 207/78 H 11/13/17 08:00 Pulse Ox 96 11/13/17 08:00 - Labs Result Diagrams: 11/13/17 06:00 11/13/17 10:45 Labs: Laboratory Results - last 24 hr 11/12/17 11/12/17 11/12/17 18:07 18:34 18:34 WBC 11.0 H RBC 3.89 Hgb 10.0 L Hct 32.4 L MCV 83.3 D MCH 25.8 L MCHC 31.0 L RDW 18.4 H Plt Count 220 MPV 8.8 Neut % (Auto) 84.8 H Lymph % (Auto) 8.6 L [place] % (Auto) 6.1 Eos % (Auto) 0.1 Baso % (Auto) 0.4 Neut # (Auto) 9.3 H Lymph # (Auto) 0.9 L [place] # (Auto) 0.7 Eos # (Auto) 0.0 Baso # (Auto) 0.0 Neutrophils % (Manual) 88 H Lymphocytes % (Manual) 5 L Monocytes % (Manual) 6 Basophils % (Manual) 1 Toxic Granulation Present Platelet Estimate Normal Hypochromasia (manual) Moderate Poikilocytosis (manual Slight Anisocytosis (manual) Slight Target Cells Slight Tear Drop Cells Slight Ovalocytes Slight Stomatocytes Slight Rouleaux Slight PT INR APTT Sodium 139 Potassium 6.5 H* D Chloride 100 Carbon Dioxide 28 Anion Gap 18 BUN 35 H Creatinine 1.0 Est GFR ( Amer) > 60 Est GFR (Non-Af Amer) 53 POC Glucose (mg/dL) 103 Random Glucose 106 H Calcium 9.2 Total Bilirubin 0.6 AST 168 H D ALT 152 H D Alkaline Phosphatase 189 H D Troponin I 0.0520 Total Protein 7.2 Albumin 3.8 Globulin 3.3 Albumin/Globulin Ratio 1.1 Triglycerides 65 D Cholesterol 126 LDL Cholesterol Direct 48 HDL Cholesterol 43 Blood Type Antibody Screen BBK History Checked 11/12/17 11/12/17 11/12/17 18:34 18:34 21:55 WBC RBC Hgb Hct MCV MCH MCHC RDW Plt Count MPV Neut % (Auto) Lymph % (Auto) [place] % (Auto) Eos % (Auto) Baso % (Auto) Neut # (Auto) Lymph # (Auto) [place] # (Auto) Eos # (Auto) Baso # (Auto) Neutrophils % (Manual) Lymphocytes % (Manual) Monocytes % (Manual) Basophils % (Manual) Toxic Granulation Platelet Estimate Hypochromasia (manual) Poikilocytosis (manual Anisocytosis (manual) Target Cells Tear Drop Cells Ovalocytes Stomatocytes Rouleaux PT 12.7 INR 1.1 APTT 27.3 Sodium Potassium 6.5 H* Chloride Carbon Dioxide Anion Gap BUN Creatinine Est GFR ( Amer) Est GFR (Non-Af Amer) POC Glucose (mg/dL) Random Glucose Calcium Total Bilirubin AST ALT Alkaline Phosphatase Troponin I Total Protein Albumin Globulin Albumin/Globulin Ratio Triglycerides Cholesterol LDL Cholesterol Direct HDL Cholesterol Blood Type O POSITIVE Antibody Screen Negative BBK History Checked Patient has bt 11/13/17 11/13/17 11/13/17 06:00 06:00 07:58 WBC 8.0 RBC 4.02 Hgb 10.5 L Hct 33.1 L MCV 82.4 MCH 26.2 L MCHC 31.8 L RDW 18.1 H Plt Count 214 MPV Neut % (Auto) Lymph % (Auto) [place] % (Auto) Eos % (Auto) Baso % (Auto) Neut # (Auto) Lymph # (Auto) [place] # (Auto) Eos # (Auto) Baso # (Auto) Neutrophils % (Manual) Lymphocytes % (Manual) Monocytes % (Manual) Basophils % (Manual) Toxic Granulation Platelet Estimate Hypochromasia (manual) Poikilocytosis (manual Anisocytosis (manual) Target Cells Tear Drop Cells Ovalocytes Stomatocytes Rouleaux PT INR APTT Sodium 140 Potassium 6.3 H* Chloride 103 Carbon Dioxide 27 Anion Gap 16 BUN 36 H Creatinine 0.9 Est GFR ( Amer) > 60 Est GFR (Non-Af Amer) 60 POC Glucose (mg/dL) 139 H Random Glucose 149 H Calcium 9.4 Total Bilirubin 0.6 AST 110 H D ALT 156 H Alkaline Phosphatase 190 H Troponin I Total Protein 7.1 Albumin 3.7 Globulin 3.4 Albumin/Globulin Ratio 1.1 Triglycerides Cholesterol LDL Cholesterol Direct HDL Cholesterol Blood Type Antibody Screen BBK History Checked 11/13/17 08:42 WBC RBC Hgb Hct MCV MCH MCHC RDW Plt Count MPV Neut % (Auto) Lymph % (Auto) [place] % (Auto) Eos % (Auto) Baso % (Auto) Neut # (Auto) Lymph # (Auto) [place] # (Auto) Eos # (Auto) Baso # (Auto) Neutrophils % (Manual) Lymphocytes % (Manual) Monocytes % (Manual) Basophils % (Manual) Toxic Granulation Platelet Estimate Hypochromasia (manual) Poikilocytosis (manual Anisocytosis (manual) Target Cells Tear Drop Cells Ovalocytes Stomatocytes Rouleaux PT INR APTT Sodium Potassium Chloride Carbon Dioxide Anion Gap BUN Creatinine Est GFR ( Amer) Est GFR (Non-Af Amer) POC Glucose (mg/dL) 245 H Random Glucose Calcium Total Bilirubin AST ALT Alkaline Phosphatase Troponin I Total Protein Albumin Globulin Albumin/Globulin Ratio Triglycerides Cholesterol LDL Cholesterol Direct HDL Cholesterol Blood Type Antibody Screen BBK History Checked Assessment & Plan - Assessment and Plan (Free Text) Assessment: new onset slurred speech and confusion Patient has dementia R/O Stroke CT head no acute ischemic or hemorrhage Neuro consult appreciated. Johnathan F/u recs HTN uncontrolled C/W Home meds Stable after hypertensive episode this morning Cardiology consult appreciated Acute elevation of Liver enzimes F/U GTT, Ammonia, Hepatitis profile F/U BMP AM Anemia, microcitic Unknown F/U iron studies <Ariel Gaviria Sherin - Last Filed: 11/17/17 21:28> Results - Vital Signs Recent Vital Signs: Last Vital Signs Temp 98.3 F 11/17/17 19:33 Pulse 61 11/17/17 19:55 Resp 20 11/17/17 19:33 BP 135/75 11/17/17 19:33 Pulse Ox 100 11/17/17 19:33 - Labs Result Diagrams: 11/17/17 11:20 11/17/17 11:20 Labs: Laboratory Results - last 24 hr 11/16/17 11/17/17 11/17/17 22:18 05:50 11:04 WBC RBC Hgb Hct MCV MCH MCHC RDW Plt Count Sodium Potassium Chloride Carbon Dioxide Anion Gap BUN Creatinine Est GFR ( Amer) Est GFR (Non-Af Amer) POC Glucose (mg/dL) 96 89 99 Random Glucose Calcium 11/17/17 11/17/17 11/17/17 11:20 11:20 16:06 WBC 8.9 RBC 3.73 L Hgb 10.0 L Hct 30.7 L MCV 82.3 MCH 26.7 L MCHC 32.5 L RDW 18.8 H Plt Count 165 Sodium 142 Potassium 4.5 Chloride 94 L Carbon Dioxide 36 H Anion Gap 17 BUN 35 H Creatinine 1.0 Est GFR ( Amer) > 60 Est GFR (Non-Af Amer) 53 POC Glucose (mg/dL) 199 H Random Glucose 106 H Calcium 8.9 Assessment & Plan (1) CVA (cerebral vascular accident) Status: Acute (2) Anxiety Status: Acute (3) Dementia Status: Chronic Priority: High (4) Pleural effusion Status: Chronic Priority: Medium - Assessment and Plan (Free Text) Plan: I was present during evaluation and discussed with Dr Wanger re plans of care and tx. Ariel Gaviria M.D.
--- NOTE | 2017-11-13 11:05 | RAD ---
HISTORY: Code Stroke COMPARISON: 10/24/2017 FINDINGS: LUNGS: No definite infiltrate. PLEURA: Small to moderate right pleural effusion. No evidence of left pleural effusion. No pneumothorax. CARDIOVASCULAR: Mild cardiomegaly. OSSEOUS STRUCTURES: No significant abnormalities. VISUALIZED UPPER ABDOMEN: Normal. OTHER FINDINGS: None. IMPRESSION: Small right pleural effusion. No infiltrate.
[2017-11-13 11:20] LABS: BLOOD UREA NITROGEN 35 mg/dl (7-17); CALCIUM 9.3 mg/dL (8.4-10.2); GFR AFRICAN-AMERICAN > 60; GFR NON-AFRICAN AMERICAN 53
--- NOTE | 2017-11-13 11:21 | CP.PCM.CON ---
History of Present Illness - History of Present Illness History of Present Illness: patient seen examined. consutl to follow will assist with blood pressure management. Normal LV function with normal valvular function Past Patient History - Past Medical History & Family History Past Medical History?: Yes - Past Social History Smoking Status: Never Smoked - CARDIAC Hx Atrial Fibrillation: No Hx Cardia Arrhythmia: No Hx Congestive Heart Failure: No Hx Hypercholesterolemia: Yes Hx Hypertension: Yes Hx Mitral Valve Prolapse: No Hx Pacemaker: No Hx Peripheral Edema: No - PULMONARY Hx Asthma: Yes Hx Bronchitis: Yes Hx Chronic Obstructive Pulmonary Disease (COPD): Yes Hx Emphysema: No Hx Pneumonia: Yes Hx Pulmonary Embolism: No Hx Sleep Apnea: No - NEUROLOGICAL Hx Alzheimer's Disease: No Hx Dementia: Yes Hx Migraine: No Hx Multiple Sclerosis: No Hx Parkinson's Disease: No Hx Seizures: No Hx Transient Ischemic Attacks (TIA): No - HEENT Hx HEENT Problems: No - RENAL Hx Chronic Kidney Disease: No Hx Kidney Stones: No - ENDOCRINE/METABOLIC Hx Hyperthyroidism: No Hx Hypothyroidism: No - HEMATOLOGICAL/ONCOLOGICAL Hx Anemia: Yes Hx Human Immunodeficiency Virus (HIV): No Hx Sickle Cell Disease: No - INTEGUMENTARY Hx Dermatological Problems: No - MUSCULOSKELETAL/RHEUMATOLOGICAL Hx Arthritis: Yes Hx Falls: No Hx Fractures: No Hx Osteoporosis: Yes Hx Rheumatoid Arthritis: No - GASTROINTESTINAL Hx Crohn's Disease: No Hx Diverticulitis: Yes Hx Gall Bladder Disease: No Hx Gastritis: No Hx Pancreatitis: No - GENITOURINARY/GYNECOLOGICAL Hx Sexually Transmitted Disorders: No - PSYCHIATRIC Hx Anxiety: No Hx Bipolar Disorder: No Hx Depression: Yes Hx Paranoia: No Hx Post Traumatic Stress Disorder: No Hx Schizophrenia: No Hx Substance Use: No - SURGICAL HISTORY Hx Appendectomy: No Hx Carotid Endarterectomy: No Hx Cholecystectomy: No Hx Coronary Artery Bypass Graft: No Hx Coronary Stent: No Hx Tonsillectomy: No - ANESTHESIA Hx Anesthesia: Yes Hx Anesthesia Reactions: No Hx Malignant Hyperthermia: No Meds Allergies/Adverse Reactions: Allergies Allergy/AdvReac Type Severity Reaction Status Date / Time No Known Allergies Allergy Verified 11/12/17 18:02 - Medications Medications: Current Medications Sodium Chloride (Sodium Chloride 0.9%) 1,000 mls @ 100 mls/hr IV .Q10H CRISTAL Last Admin: 11/13/17 06:54 Dose: Not Given Results - Vital Signs Recent Vital Signs: Last Vital Signs Temp 98 F 11/13/17 08:00 Pulse 58 L 11/13/17 08:00 Resp 20 11/13/17 08:00 BP 207/78 H 11/13/17 08:00 Pulse Ox 96 11/13/17 08:00 - Labs Result Diagrams: 11/13/17 06:00 11/13/17 10:45 Labs: Laboratory Results - last 24 hr 11/12/17 11/12/17 11/12/17 18:07 18:34 18:34 WBC 11.0 H RBC 3.89 Hgb 10.0 L Hct 32.4 L MCV 83.3 D MCH 25.8 L MCHC 31.0 L RDW 18.4 H Plt Count 220 MPV 8.8 Neut % (Auto) 84.8 H Lymph % (Auto) 8.6 L [place] % (Auto) 6.1 Eos % (Auto) 0.1 Baso % (Auto) 0.4 Neut # (Auto) 9.3 H Lymph # (Auto) 0.9 L [place] # (Auto) 0.7 Eos # (Auto) 0.0 Baso # (Auto) 0.0 Neutrophils % (Manual) 88 H Lymphocytes % (Manual) 5 L Monocytes % (Manual) 6 Basophils % (Manual) 1 Toxic Granulation Present Platelet Estimate Normal Hypochromasia (manual) Moderate Poikilocytosis (manual Slight Anisocytosis (manual) Slight Target Cells Slight Tear Drop Cells Slight Ovalocytes Slight Stomatocytes Slight Rouleaux Slight PT INR APTT Sodium 139 Potassium 6.5 H* D Chloride 100 Carbon Dioxide 28 Anion Gap 18 BUN 35 H Creatinine 1.0 Est GFR ( Amer) > 60 Est GFR (Non-Af Amer) 53 POC Glucose (mg/dL) 103 Random Glucose 106 H Hemoglobin A1c Calcium 9.2 Total Bilirubin 0.6 AST 168 H D ALT 152 H D Alkaline Phosphatase 189 H D Troponin I 0.0520 Total Protein 7.2 Albumin 3.8 Globulin 3.3 Albumin/Globulin Ratio 1.1 Triglycerides 65 D Cholesterol 126 LDL Cholesterol Direct 48 HDL Cholesterol 43 Blood Type Antibody Screen BBK History Checked 11/12/17 11/12/17 11/12/17 18:34 18:34 18:36 WBC RBC Hgb Hct MCV MCH MCHC RDW Plt Count MPV Neut % (Auto) Lymph % (Auto) [place] % (Auto) Eos % (Auto) Baso % (Auto) Neut # (Auto) Lymph # (Auto) [place] # (Auto) Eos # (Auto) Baso # (Auto) Neutrophils % (Manual) Lymphocytes % (Manual) Monocytes % (Manual) Basophils % (Manual) Toxic Granulation Platelet Estimate Hypochromasia (manual) Poikilocytosis (manual Anisocytosis (manual) Target Cells Tear Drop Cells Ovalocytes Stomatocytes Rouleaux PT 12.7 INR 1.1 APTT 27.3 Sodium Potassium Chloride Carbon Dioxide Anion Gap BUN Creatinine Est GFR ( Amer) Est GFR (Non-Af Amer) POC Glucose (mg/dL) Random Glucose Hemoglobin A1c 5.6 Calcium Total Bilirubin AST ALT Alkaline Phosphatase Troponin I Total Protein Albumin Globulin Albumin/Globulin Ratio Triglycerides Cholesterol LDL Cholesterol Direct HDL Cholesterol Blood Type O POSITIVE Antibody Screen Negative BBK History Checked Patient has bt 11/12/17 11/13/17 11/13/17 21:55 06:00 06:00 WBC 8.0 RBC 4.02 Hgb 10.5 L Hct 33.1 L MCV 82.4 MCH 26.2 L MCHC 31.8 L RDW 18.1 H Plt Count 214 MPV Neut % (Auto) Lymph % (Auto) [place] % (Auto) Eos % (Auto) Baso % (Auto) Neut # (Auto) Lymph # (Auto) [place] # (Auto) Eos # (Auto) Baso # (Auto) Neutrophils % (Manual) Lymphocytes % (Manual) Monocytes % (Manual) Basophils % (Manual) Toxic Granulation Platelet Estimate Hypochromasia (manual) Poikilocytosis (manual Anisocytosis (manual) Target Cells Tear Drop Cells Ovalocytes Stomatocytes Rouleaux PT INR APTT Sodium 140 Potassium 6.5 H* 6.3 H* Chloride 103 Carbon Dioxide 27 Anion Gap 16 BUN 36 H Creatinine 0.9 Est GFR ( Amer) > 60 Est GFR (Non-Af Amer) 60 POC Glucose (mg/dL) Random Glucose 149 H Hemoglobin A1c Calcium 9.4 Total Bilirubin 0.6 AST 110 H D ALT 156 H Alkaline Phosphatase 190 H Troponin I Total Protein 7.1 Albumin 3.7 Globulin 3.4 Albumin/Globulin Ratio 1.1 Triglycerides Cholesterol LDL Cholesterol Direct HDL Cholesterol Blood Type Antibody Screen BBK History Checked 11/13/17 11/13/17 11/13/17 07:58 08:42 10:45 WBC RBC Hgb Hct MCV MCH MCHC RDW Plt Count MPV Neut % (Auto) Lymph % (Auto) [place] % (Auto) Eos % (Auto) Baso % (Auto) Neut # (Auto) Lymph # (Auto) [place] # (Auto) Eos # (Auto) Baso # (Auto) Neutrophils % (Manual) Lymphocytes % (Manual) Monocytes % (Manual) Basophils % (Manual) Toxic Granulation Platelet Estimate Hypochromasia (manual) Poikilocytosis (manual Anisocytosis (manual) Target Cells Tear Drop Cells Ovalocytes Stomatocytes Rouleaux PT INR APTT Sodium 143 Potassium 4.8 Chloride 100 Carbon Dioxide 33 H Anion Gap 15 BUN 35 H Creatinine 1.0 Est GFR ( Amer) > 60 Est GFR (Non-Af Amer) 53 POC Glucose (mg/dL) 139 H 245 H Random Glucose 191 H Hemoglobin A1c Calcium 9.3 Total Bilirubin AST ALT Alkaline Phosphatase Troponin I Total Protein Albumin Globulin Albumin/Globulin Ratio Triglycerides Cholesterol LDL Cholesterol Direct HDL Cholesterol Blood Type Antibody Screen BBK History Checked
[2017-11-13 14:38] LABS: IRON 38 ug/dL (37-170)
[2017-11-13] MEDS ORDERED: Liquid Adhesive TOP ONE (14:38)
[2017-11-13 14:47] LABS: % IRON SATURATION 15 % (20-55); TOTAL IRON BINDING CAPACITY 259 ug/dL (250-450)
--- NOTE | 2017-11-13 17:25 | CP.PCM.CON ---
History of Present Illness - History of Present Illness History of Present Illness: Mrs. Torres is an 86-year-old woman with a past medical history of dementia, HTN, HLD, OA, who was brought in by family yesterday after they noticed her speech was slurred speech and some confusion. She underwent CT scan of the head and it did not show any acute findings. Labs showed hyperkalemia, dehydration, and elevated LFTs. Review of Systems - Review of Systems All systems: reviewed and no additional remarkable complaints except Past Patient History - Past Medical History & Family History Past Medical History?: Yes - Past Social History Smoking Status: Never Smoked - CARDIAC Hx Hypercholesterolemia: Yes Hx Hypertension: Yes - PULMONARY Hx Chronic Obstructive Pulmonary Disease (COPD): Yes - NEUROLOGICAL Hx Alzheimer's Disease: No Hx Dementia: Yes Hx Migraine: No Hx Multiple Sclerosis: No Hx Parkinson's Disease: No Hx Seizures: No Hx Transient Ischemic Attacks (TIA): No - HEENT Hx HEENT Problems: No - RENAL Hx Chronic Kidney Disease: No Hx Kidney Stones: No - ENDOCRINE/METABOLIC Hx Hyperthyroidism: No Hx Hypothyroidism: No - HEMATOLOGICAL/ONCOLOGICAL Hx Anemia: Yes Hx Human Immunodeficiency Virus (HIV): No Hx Sickle Cell Disease: No - INTEGUMENTARY Hx Dermatological Problems: No - MUSCULOSKELETAL/RHEUMATOLOGICAL Hx Arthritis: Yes - GASTROINTESTINAL Hx Crohn's Disease: No Hx Diverticulitis: Yes Hx Gall Bladder Disease: No Hx Gastritis: No Hx Pancreatitis: No - GENITOURINARY/GYNECOLOGICAL Hx Sexually Transmitted Disorders: No - PSYCHIATRIC Hx Anxiety: No Hx Bipolar Disorder: No Hx Depression: Yes Hx Paranoia: No Hx Post Traumatic Stress Disorder: No Hx Schizophrenia: No Hx Substance Use: No - SURGICAL HISTORY Hx Appendectomy: No Hx Carotid Endarterectomy: No Hx Cholecystectomy: No Hx Coronary Artery Bypass Graft: No Hx Coronary Stent: No Hx Tonsillectomy: No - ANESTHESIA Hx Anesthesia: Yes Hx Anesthesia Reactions: No Hx Malignant Hyperthermia: No Meds Allergies/Adverse Reactions: Allergies Allergy/AdvReac Type Severity Reaction Status Date / Time No Known Allergies Allergy Verified 11/12/17 18:02 - Medications Medications: Current Medications Enoxaparin Sodium (Lovenox) 40 mg SC DAILY [facility] PRN Reason: Protocol Ferrous Sulfate (Feosol) 325 mg PO BID [facility] Gabapentin (Neurontin) 300 mg PO Q8 [facility] Sodium Chloride (Sodium Chloride 0.9%) 1,000 mls @ 100 mls/hr IV .Q10H [facility] Last Admin: 11/13/17 06:54 Dose: Not Given Memantine (Namenda) 10 mg PO Q12 [facility] Metoprolol Succinate (Toprol Xl) 50 mg PO DAILY [facility] Montelukast Sodium (Singulair) 10 mg PO HS [facility] Pantoprazole Sodium (Protonix Ec Tab) 40 mg PO HS [facility] Paroxetine HCl (Paxil) 20 mg PO DAILY [facility] Pravastatin Sodium (Pravachol) 20 mg PO HS [facility] Physical Exam - Neurological Exam Neurological exam: Alert, Altered, CN II-XII Intact, Oriented x3, Reflexes Normal Additional comments: slightly dysarthric, poor dentition. Results - Vital Signs Recent Vital Signs: Last Vital Signs Temp 98.2 F 11/13/17 16:15 Pulse 61 11/13/17 16:15 Resp 20 11/13/17 16:15 BP 146/73 11/13/17 16:15 Pulse Ox 97 11/13/17 16:15 - Labs Result Diagrams: 11/13/17 06:00 11/13/17 10:45 Labs: Laboratory Results - last 24 hr 11/12/17 11/12/17 11/12/17 18:07 18:34 18:34 WBC 11.0 H RBC 3.89 Hgb 10.0 L Hct 32.4 L MCV 83.3 D MCH 25.8 L MCHC 31.0 L RDW 18.4 H Plt Count 220 MPV 8.8 Neut % (Auto) 84.8 H Lymph % (Auto) 8.6 L Ness % (Auto) 6.1 Eos % (Auto) 0.1 Baso % (Auto) 0.4 Neut # (Auto) 9.3 H Lymph # (Auto) 0.9 L Ness # (Auto) 0.7 Eos # (Auto) 0.0 Baso # (Auto) 0.0 Neutrophils % (Manual) 88 H Lymphocytes % (Manual) 5 L Monocytes % (Manual) 6 Basophils % (Manual) 1 Toxic Granulation Present Platelet Estimate Normal Hypochromasia (manual) Moderate Poikilocytosis (manual Slight Anisocytosis (manual) Slight Target Cells Slight Tear Drop Cells Slight Ovalocytes Slight Stomatocytes Slight Rouleaux Slight ESR PT INR APTT Sodium 139 Potassium 6.5 H* D Chloride 100 Carbon Dioxide 28 Anion Gap 18 BUN 35 H Creatinine 1.0 Est GFR ( Amer) > 60 Est GFR (Non-Af Amer) 53 POC Glucose (mg/dL) 103 Random Glucose 106 H Hemoglobin A1c Calcium 9.2 Iron TIBC % Saturation Ferritin Total Bilirubin 0.6 AST 168 H D ALT 152 H D Alkaline Phosphatase 189 H D Ammonia Troponin I 0.0520 C-React Prot High Sens Total Protein 7.2 Albumin 3.8 Globulin 3.3 Albumin/Globulin Ratio 1.1 Triglycerides 65 D Cholesterol 126 LDL Cholesterol Direct 48 HDL Cholesterol 43 Vitamin B12 25-OH Vitamin D Total TSH 3rd Generation Blood Type Antibody Screen [facility] History Checked 11/12/17 11/12/17 11/12/17 18:34 18:34 18:36 WBC RBC Hgb Hct MCV MCH MCHC RDW Plt Count MPV Neut % (Auto) Lymph % (Auto) Ness % (Auto) Eos % (Auto) Baso % (Auto) Neut # (Auto) Lymph # (Auto) Ness # (Auto) Eos # (Auto) Baso # (Auto) Neutrophils % (Manual) Lymphocytes % (Manual) Monocytes % (Manual) Basophils % (Manual) Toxic Granulation Platelet Estimate Hypochromasia (manual) Poikilocytosis (manual Anisocytosis (manual) Target Cells Tear Drop Cells Ovalocytes Stomatocytes Rouleaux ESR PT 12.7 INR 1.1 APTT 27.3 Sodium Potassium Chloride Carbon Dioxide Anion Gap BUN Creatinine Est GFR ( Amer) Est GFR (Non-Af Amer) POC Glucose (mg/dL) Random Glucose Hemoglobin A1c 5.6 Calcium Iron TIBC % Saturation Ferritin Total Bilirubin AST ALT Alkaline Phosphatase Ammonia Troponin I C-React Prot High Sens Total Protein Albumin Globulin Albumin/Globulin Ratio Triglycerides Cholesterol LDL Cholesterol Direct HDL Cholesterol Vitamin B12 25-OH Vitamin D Total TSH 3rd Generation Blood Type O POSITIVE Antibody Screen Negative BBK History Checked Patient has bt 11/12/17 11/13/17 11/13/17 21:55 06:00 06:00 WBC 8.0 RBC 4.02 Hgb 10.5 L Hct 33.1 L MCV 82.4 MCH 26.2 L MCHC 31.8 L RDW 18.1 H Plt Count 214 MPV Neut % (Auto) Lymph % (Auto) Ness % (Auto) Eos % (Auto) Baso % (Auto) Neut # (Auto) Lymph # (Auto) Ness # (Auto) Eos # (Auto) Baso # (Auto) Neutrophils % (Manual) Lymphocytes % (Manual) Monocytes % (Manual) Basophils % (Manual) Toxic Granulation Platelet Estimate Hypochromasia (manual) Poikilocytosis (manual Anisocytosis (manual) Target Cells Tear Drop Cells Ovalocytes Stomatocytes Rouleaux ESR PT INR APTT Sodium 140 Potassium 6.5 H* 6.3 H* Chloride 103 Carbon Dioxide 27 Anion Gap 16 BUN 36 H Creatinine 0.9 Est GFR ( Amer) > 60 Est GFR (Non-Af Amer) 60 POC Glucose (mg/dL) Random Glucose 149 H Hemoglobin A1c Calcium 9.4 Iron TIBC % Saturation Ferritin Total Bilirubin 0.6 AST 110 H D ALT 156 H Alkaline Phosphatase 190 H Ammonia Troponin I C-React Prot High Sens Total Protein 7.1 Albumin 3.7 Globulin 3.4 Albumin/Globulin Ratio 1.1 Triglycerides Cholesterol LDL Cholesterol Direct HDL Cholesterol Vitamin B12 25-OH Vitamin D Total TSH 3rd Generation Blood Type Antibody Screen BBK History Checked 11/13/17 11/13/17 11/13/17 07:58 08:42 10:45 WBC RBC Hgb Hct MCV MCH MCHC RDW Plt Count MPV Neut % (Auto) Lymph % (Auto) Ness % (Auto) Eos % (Auto) Baso % (Auto) Neut # (Auto) Lymph # (Auto) Ness # (Auto) Eos # (Auto) Baso # (Auto) Neutrophils % (Manual) Lymphocytes % (Manual) Monocytes % (Manual) Basophils % (Manual) Toxic Granulation Platelet Estimate Hypochromasia (manual) Poikilocytosis (manual Anisocytosis (manual) Target Cells Tear Drop Cells Ovalocytes Stomatocytes Rouleaux ESR PT INR APTT Sodium 143 Potassium 4.8 Chloride 100 Carbon Dioxide 33 H Anion Gap 15 BUN 35 H Creatinine 1.0 Est GFR ( Amer) > 60 Est GFR (Non-Af Amer) 53 POC Glucose (mg/dL) 139 H 245 H Random Glucose 191 H Hemoglobin A1c Calcium 9.3 Iron TIBC % Saturation Ferritin Total Bilirubin AST ALT Alkaline Phosphatase Ammonia Troponin I C-React Prot High Sens Total Protein Albumin Globulin Albumin/Globulin Ratio Triglycerides Cholesterol LDL Cholesterol Direct HDL Cholesterol Vitamin B12 25-OH Vitamin D Total TSH 3rd Generation Blood Type Antibody Screen BBK History Checked 11/13/17 11/13/17 11/13/17 10:45 10:45 10:45 WBC RBC Hgb Hct MCV MCH MCHC RDW Plt Count MPV Neut % (Auto) Lymph % (Auto) Ness % (Auto) Eos % (Auto) Baso % (Auto) Neut # (Auto) Lymph # (Auto) Ness # (Auto) Eos # (Auto) Baso # (Auto) Neutrophils % (Manual) Lymphocytes % (Manual) Monocytes % (Manual) Basophils % (Manual) Toxic Granulation Platelet Estimate Hypochromasia (manual) Poikilocytosis (manual Anisocytosis (manual) Target Cells Tear Drop Cells Ovalocytes Stomatocytes Rouleaux ESR 29 PT INR APTT Sodium Potassium Chloride Carbon Dioxide Anion Gap BUN Creatinine Est GFR ( Amer) Est GFR (Non-Af Amer) POC Glucose (mg/dL) Random Glucose Hemoglobin A1c Calcium Iron TIBC % Saturation Ferritin Total Bilirubin AST ALT Alkaline Phosphatase Ammonia Troponin I C-React Prot High Sens Total Protein Albumin Globulin Albumin/Globulin Ratio Triglycerides Cholesterol LDL Cholesterol Direct HDL Cholesterol Vitamin B12 893 25-OH Vitamin D Total 62.4 TSH 3rd Generation 1.86 Blood Type Antibody Screen BBK History Checked 11/13/17 11/13/17 11/13/17 10:45 14:23 14:23 WBC RBC Hgb Hct MCV MCH MCHC RDW Plt Count MPV Neut % (Auto) Lymph % (Auto) Ness % (Auto) Eos % (Auto) Baso % (Auto) Neut # (Auto) Lymph # (Auto) Ness # (Auto) Eos # (Auto) Baso # (Auto) Neutrophils % (Manual) Lymphocytes % (Manual) Monocytes % (Manual) Basophils % (Manual) Toxic Granulation Platelet Estimate Hypochromasia (manual) Poikilocytosis (manual Anisocytosis (manual) Target Cells Tear Drop Cells Ovalocytes Stomatocytes Rouleaux ESR PT INR APTT Sodium Potassium Chloride Carbon Dioxide Anion Gap BUN Creatinine Est GFR ( Amer) Est GFR (Non-Af Amer) POC Glucose (mg/dL) Random Glucose Hemoglobin A1c Calcium Iron TIBC % Saturation Ferritin 215.0 Total Bilirubin AST ALT Alkaline Phosphatase Ammonia < 9 L Troponin I C-React Prot High Sens 10.02 H Total Protein Albumin Globulin Albumin/Globulin Ratio Triglycerides Cholesterol LDL Cholesterol Direct HDL Cholesterol Vitamin B12 25-OH Vitamin D Total TSH 3rd Generation Blood Type Antibody Screen BBK History Checked 11/13/17 14:23 WBC RBC Hgb Hct MCV MCH MCHC RDW Plt Count MPV Neut % (Auto) Lymph % (Auto) Ness % (Auto) Eos % (Auto) Baso % (Auto) Neut # (Auto) Lymph # (Auto) Ness # (Auto) Eos # (Auto) Baso # (Auto) Neutrophils % (Manual) Lymphocytes % (Manual) Monocytes % (Manual) Basophils % (Manual) Toxic Granulation Platelet Estimate Hypochromasia (manual) Poikilocytosis (manual Anisocytosis (manual) Target Cells Tear Drop Cells Ovalocytes Stomatocytes Rouleaux ESR PT INR APTT Sodium Potassium Chloride Carbon Dioxide Anion Gap BUN Creatinine Est GFR ( Amer) Est GFR (Non-Af Amer) POC Glucose (mg/dL) Random Glucose Hemoglobin A1c Calcium Iron 38 TIBC 259 % Saturation 15 L Ferritin Total Bilirubin AST ALT Alkaline Phosphatase Ammonia Troponin I C-React Prot High Sens Total Protein Albumin Globulin Albumin/Globulin Ratio Triglycerides Cholesterol LDL Cholesterol Direct HDL Cholesterol Vitamin B12 25-OH Vitamin D Total TSH 3rd Generation Blood Type Antibody Screen BBK History Checked Assessment & Plan (1) Dysarthria Assessment and Plan: The patient has significant metabolic derangements and may have toxic-metabolic encephalopathy contributing to her mental status change and dysarthria. Ischemic stroke is possible, but less likely without any other focal neurological deficits (no facial droop, no weakness or sensory changes). I recommend the followin. Telemetry 2. MRI of the brain without contrast, MRA of the head/neck without contrast 3. Echocardiogram with bubble study 4. Aspirin 81 mg daily 5. Continue statin for LDL< 70 6. Treat underlying metabolic abnormalities 7. Fluids with NS at 100 mL/hr 8. DVT Px 9. Case management consult Thank you. Status: Acute Priority: Medium
[2017-11-13] MEDS: Enoxaparin 40 mg Syringe SC SCH (18:43)
[2017-11-13 21:09] LABS: GAMMA GLUTAMYL TRANSPEPTIDASE 242 U/L (8-78)
[2017-11-13 21:41] LABS: HEPATITIS B SURFACE AG Negative (NEGATIVE)
[2017-11-13 21:45] LABS: HEPATITIS A IGM NEGATIVE (NEGATIVE)
[2017-11-13] MEDS: Pantoprazole 40 mg EC Tab PO SCH (21:50)
[2017-11-13 21:57] LABS: HEPATITIS C ANTIBODY NEGATIVE (NEGATIVE)
[2017-11-13] MEDS ORDERED: Pravastatin Sodium 20 MG TAB PO SCH (22:00)
[2017-11-14 06:18] LABS: BASO % 0.3 % (0.0-2.0); HEMOGLOBIN 8.7 g/dL (12.0-16.0); LYMPH # 0.5 K/uL (1.0-4.3); LYMPH % 5.4 % (20.0-40.0); MEAN CELL VOLUME 81.1 fl (81.0-99.0); MEAN CORPUSCULAR HEMOGLOBIN 26.2 pg (27.0-31.0); MEAN CORPUSCULAR HGB CONC 32.3 g/dL (33.0-37.0); MEAN PLATELET VOLUME 8.6 fl (7.2-11.7); MONO # 0.5 K/uL (0.0-0.8); MONO % 5.8 % (0.0-10.0); NEUT # 8.2 K/uL (1.8-7.0); NEUT % 88.5 % (50.0-75.0); RBC 3.32 Mil/uL (3.80-5.20); WHITE BLOOD COUNT 9.3 K/uL (4.8-10.8)
[2017-11-14 06:31] LABS: BLOOD UREA NITROGEN 41 mg/dl (7-17); CALCIUM 8.5 mg/dL (8.4-10.2); GFR AFRICAN-AMERICAN > 60; GFR NON-AFRICAN AMERICAN 53
[2017-11-14] MEDS ORDERED: Enoxaparin 40 mg Syringe SC SCH (09:00)
[2017-11-14] MEDS ORDERED: Metoprolol Succinate 50 mg XL Tab PO SCH (09:00)
--- NOTE | 2017-11-14 09:15 | CP.PCM.PN ---
Subjective - Date & Time of Evaluation Date of Evaluation: 11/14/17 Time of Evaluation: 09:12 - Subjective Subjective: Ms. Torres was seen and examined at the bedside. She is alert, with slightly dysarthric and poor dentition. She is unable to follow voice interpretation, but able to follow with visual interpretation. She denies any headache, dizziness. She is able to raise bilateral upper extremities and moves lower extremities. She is unable to tolerate MRI yesterday, with order for seroquel prior to MRI.There was no untoward events overnight. Objective - Vital Signs/Intake and Output Vital Signs (last 24 hours): Temp Pulse Resp BP Pulse Ox 97.3 F L 70 20 144/83 96 11/14/17 08:00 11/14/17 08:00 11/14/17 08:00 11/14/17 08:00 11/14/17 08:00 - Medications Medications: Current Medications Acetaminophen (Tylenol 325mg Tab) 650 mg PO Q6 PRN PRN Reason: Headache Last Admin: 11/13/17 22:53 Dose: 650 mg Aspirin (Ecotrin) 81 mg PO DAILY [facility] Enoxaparin Sodium (Lovenox) 40 mg SC DAILY [facility] PRN Reason: Protocol Last Admin: 11/13/17 18:43 Dose: 40 mg Ferrous Sulfate (Feosol) 325 mg PO BID [facility] Last Admin: 11/13/17 18:42 Dose: 325 mg Gabapentin (Neurontin) 300 mg PO Q8 [facility] Last Admin: 11/14/17 00:43 Dose: 300 mg Sodium Chloride (Sodium Chloride 0.9%) 1,000 mls @ 100 mls/hr IV .Q10H [facility] Last Admin: 11/13/17 06:54 Dose: Not Given Memantine (Namenda) 10 mg PO Q12 [facility] Last Admin: 11/13/17 21:50 Dose: 10 mg Metoprolol Succinate (Toprol Xl) 50 mg PO DAILY [facility] Montelukast Sodium (Singulair) 10 mg PO HS [facility] Last Admin: 11/13/17 21:50 Dose: 10 mg Pantoprazole Sodium (Protonix Ec Tab) 40 mg PO HS [facility] Last Admin: 11/13/17 21:50 Dose: 40 mg Paroxetine HCl (Paxil) 20 mg PO DAILY [facility] Pravastatin Sodium (Pravachol) 20 mg PO HS [facility] Last Admin: 11/13/17 21:50 Dose: 20 mg - Labs Labs: 11/14/17 05:50 11/14/17 05:50 PT 12.7 Seconds (9.8-13.1) 11/12/17 18:34 INR 1.1 (0.9-1.2) 11/12/17 18:34 APTT 27.3 Seconds (25.6-37.1) 11/12/17 18:34 - Constitutional Appears: No Acute Distress - Head Exam Head Exam: NORMAL INSPECTION - Neurological Exam Neurological Exam: Alert, Awake Neuro motor strength exam: Left Upper Extremity: 3, Right Upper Extremity: 3, Left Lower Extremity: 2/1, Right Lower Extremity: 2/1 Additional comments: She is alert with slightly dysarthric and poor dentition. She is able to follow simple commands.Sensation remains intact. Assessment and Plan (1) Encephalopathy Assessment & Plan: Case discussed with Dr. Bowden, continue all current medical, physical, occupational, and speech therapies. Pending MRI of the brain, MRA of head and neck, echocardiogram. Status: Acute
[2017-11-14] MEDS: Enoxaparin 40 mg Syringe SC SCH (11:08)
[2017-11-14 11:14] LABS: ALB/GLOB RATIO 1.1 (1.0-2.1); ALBUMIN 3.1 g/dL (3.5-5.0); BILIRUBIN,DIRECT 0.4 mg/ml (0.0-0.4)
--- NOTE | 2017-11-14 12:39 | CP.PCM.PN ---
<Feliberto Wagner - Last Filed: 11/14/17 14:01> Subjective - Date & Time of Evaluation Date of Evaluation: 11/14/17 Time of Evaluation: 10:40 - Subjective Subjective: Stable. No acute events overnight. Denies CP, SOB. As per nurse patient had R/ hand tremor earlier. Unable to undergo MRI due to patient cant stay still. Neuro made aware. No new complains Objective - Vital Signs/Intake and Output Vital Signs (last 24 hours): Temp Pulse Resp BP Pulse Ox 97.3 F L 70 20 144/83 96 11/14/17 08:00 11/14/17 11:09 11/14/17 08:00 11/14/17 11:09 11/14/17 08:00 - Medications Medications: Current Medications Acetaminophen (Tylenol 325mg Tab) 650 mg PO Q6 PRN PRN Reason: Headache Last Admin: 11/13/17 22:53 Dose: 650 mg Aspirin (Ecotrin) 81 mg PO DAILY [facility] Last Admin: 11/14/17 11:09 Dose: 81 mg Enoxaparin Sodium (Lovenox) 40 mg SC DAILY [facility] PRN Reason: Protocol Last Admin: 11/14/17 11:08 Dose: 40 mg Ferrous Sulfate (Feosol) 325 mg PO BID [facility] Last Admin: 11/14/17 11:08 Dose: 325 mg Gabapentin (Neurontin) 300 mg PO Q8 [facility] Last Admin: 11/14/17 00:43 Dose: 300 mg Sodium Chloride (Sodium Chloride 0.9%) 1,000 mls @ 100 mls/hr IV .Q10H [facility] Last Admin: 11/13/17 06:54 Dose: Not Given Insulin Human Lispro (Humalog) 0 units SC ACHS [facility] PRN Reason: Protocol Memantine (Namenda) 10 mg PO Q12 [facility] Last Admin: 11/13/17 21:50 Dose: 10 mg Metoprolol Succinate (Toprol Xl) 50 mg PO DAILY [facility] Last Admin: 11/14/17 11:09 Dose: 50 mg Montelukast Sodium (Singulair) 10 mg PO HS [facility] Last Admin: 11/13/17 21:50 Dose: 10 mg Pantoprazole Sodium (Protonix Ec Tab) 40 mg PO HS [facility] Last Admin: 11/13/17 21:50 Dose: 40 mg Paroxetine HCl (Paxil) 20 mg PO DAILY [facility] Last Admin: 11/14/17 11:10 Dose: 20 mg Pravastatin Sodium (Pravachol) 20 mg PO HS [facility] Last Admin: 11/13/17 21:50 Dose: 20 mg - Labs Labs: 11/14/17 05:50 11/14/17 05:50 PT 12.7 Seconds (9.8-13.1) 11/12/17 18:34 INR 1.1 (0.9-1.2) 11/12/17 18:34 APTT 27.3 Seconds (25.6-37.1) 11/12/17 18:34 - Constitutional Appears: Non-toxic, Chronically Ill - Eye Exam Eye Exam: PERRL - ENT Exam ENT Exam: Mucous Membranes Moist - Respiratory Exam Respiratory Exam: NORMAL BREATHING PATTERN. absent: Decreased Breath Sounds, Rales, Wheezes, Respiratory Distress - Cardiovascular Exam Cardiovascular Exam: REGULAR RHYTHM, +S1, +S2. absent: Gallop - GI/Abdominal Exam GI & Abdominal Exam: Soft, Normal Bowel Sounds. absent: Distended, Guarding, Rigid, Tenderness - Extremities Exam Extremities Exam: Normal Capillary Refill. absent: Pedal Edema - Neurological Exam Neurological Exam: Alert, Awake. absent: Oriented x3 Additional comments: Confused. Dysarthric - Skin Skin Exam: Normal Color, Warm Assessment and Plan - Assessment and Plan (Free Text) Assessment: Dysarthria R/O Stroke For CTA today: Couldnt undergo MRI Patient has dementia CT head no acute ischemic or hemorrhage Stop Gabapentin for now and hold Namenda Neuro consult appreciated. Johnathan F/u recs HTN uncontrolled C/W Home meds Stable Cardiology consult appreciated Acute elevation of Liver enzimes Improved today GGT high Ammonia low Hold Statins for now monitor Anemia, microcitic Unknown Iron studies unremarkable C/W IRON BID <Ariel Gaviria - Last Filed: 11/17/17 21:32> Objective - Vital Signs/Intake and Output Vital Signs (last 24 hours): Temp Pulse Resp BP Pulse Ox 98.3 F 61 20 135/75 100 11/17/17 19:33 11/17/17 19:55 11/17/17 19:33 11/17/17 19:33 11/17/17 19:33 - Medications Medications: Current Medications Acetaminophen (Tylenol 325mg Tab) 650 mg PO Q6 PRN PRN Reason: Headache Last Admin: 11/15/17 14:05 Dose: 650 mg Alprazolam (Xanax) 0.25 mg PO DAILY PRN PRN Reason: Anxiety Stop: 11/23/17 09:01 Last Admin: 11/16/17 13:13 Dose: 0.25 mg Amlodipine Besylate (Norvasc) 5 mg PO DAILY [facility] Last Admin: 11/17/17 11:48 Dose: 5 mg Aspirin (Ecotrin) 81 mg PO DAILY [facility] Last Admin: 11/17/17 11:49 Dose: 81 mg Ferrous Sulfate (Feosol) 325 mg PO BID [facility] Last Admin: 11/17/17 18:44 Dose: Not Given Sodium Chloride (Sodium Chloride 0.9%) 1,000 mls @ 100 mls/hr IV .Q10H [facility] Last Admin: 11/13/17 06:54 Dose: Not Given Insulin Human Lispro (Humalog) 0 units SC ACHS [facility] PRN Reason: Protocol Last Admin: 11/17/17 17:15 Dose: 2 unit Losartan Potassium (Cozaar) 50 mg PO DAILY [facility] Last Admin: 11/17/17 11:49 Dose: 50 mg Memantine (Namenda) 10 mg PO Q12 [facility] Last Admin: 11/13/17 21:50 Dose: 10 mg Metoprolol Succinate (Toprol Xl) 50 mg PO BID [facility] Last Admin: 11/17/17 18:44 Dose: Not Given Montelukast Sodium (Singulair) 10 mg PO HS [facility] Last Admin: 11/16/17 21:42 Dose: 10 mg Pantoprazole Sodium (Protonix Ec Tab) 40 mg PO HS [facility] Last Admin: 11/16/17 21:43 Dose: 40 mg Paroxetine HCl (Paxil) 20 mg PO DAILY [facility] Last Admin: 11/17/17 11:48 Dose: 20 mg Pravastatin Sodium (Pravachol) 20 mg PO HS [facility] Last Admin: 11/13/17 21:50 Dose: 20 mg - Labs Labs: 11/17/17 11:20 11/17/17 11:20 PT 12.7 Seconds (9.8-13.1) 11/12/17 18:34 INR 1.1 (0.9-1.2) 11/12/17 18:34 APTT 27.3 Seconds (25.6-37.1) 11/12/17 18:34 Assessment and Plan (1) Anxiety Status: Acute (2) CVA (cerebral vascular accident) Status: Acute (3) Dementia Status: Chronic - Assessment and Plan (Free Text) Plan: I was present during evaluation and discussed with Dr Bernard mcgill plans of care and tx Ariel Gaviria M.D.
[2017-11-14] MEDS ORDERED: Sodium Chloride 0.9% 100 ML ONE ×2 (13:32→15:34)
[2017-11-14] MEDS ORDERED: Iodixanol 320 MG/ML 100 ML BOTTLE IV ONE ×2 (13:32→15:34)
[2017-11-14] MEDS: Insulin Lispro (humaLOG) 100 Units/ml Inj SC SCH ×2 (16:10→21:32)
--- NOTE | 2017-11-14 16:57 | CP.PCM.CON ---
History of Present Illness - History of Present Illness History of Present Illness: I was asked to evaluate patient by Dr Gaviria Patient is a 86 year old female with PMH HTN, hypercholesterolemia who presents with CVA. The patient has undergone previous cardiac catheterization revealing nonobstructive CAD and normal LV function. The patient was noted to have markedly elevated blood pressure. She denies chest pain. Review of Systems - Review of Systems Systems not reviewed;Unavailable: Dementia Past Patient History - Past Medical History & Family History Past Medical History?: Yes - Past Social History Smoking Status: Never Smoked - CARDIAC Hx Hypercholesterolemia: Yes Hx Hypertension: Yes - PULMONARY Hx Chronic Obstructive Pulmonary Disease (COPD): Yes Hx Pneumonia: Yes - NEUROLOGICAL Hx Alzheimer's Disease: No Hx Dementia: Yes Hx Migraine: No Hx Multiple Sclerosis: No Hx Parkinson's Disease: No Hx Seizures: No Hx Transient Ischemic Attacks (TIA): No - HEENT Hx HEENT Problems: No - RENAL Hx Chronic Kidney Disease: No Hx Kidney Stones: No - ENDOCRINE/METABOLIC Hx Hyperthyroidism: No Hx Hypothyroidism: No - HEMATOLOGICAL/ONCOLOGICAL Hx Anemia: Yes Hx Human Immunodeficiency Virus (HIV): No Hx Sickle Cell Disease: No - INTEGUMENTARY Hx Dermatological Problems: No - MUSCULOSKELETAL/RHEUMATOLOGICAL Hx Arthritis: Yes - GASTROINTESTINAL Hx Crohn's Disease: No Hx Diverticulitis: Yes Hx Gall Bladder Disease: No Hx Gastritis: No Hx Pancreatitis: No - GENITOURINARY/GYNECOLOGICAL Hx Sexually Transmitted Disorders: No - PSYCHIATRIC Hx Anxiety: No Hx Bipolar Disorder: No Hx Depression: Yes Hx Paranoia: No Hx Post Traumatic Stress Disorder: No Hx Schizophrenia: No Hx Substance Use: No - SURGICAL HISTORY Hx Appendectomy: No Hx Carotid Endarterectomy: No Hx Cholecystectomy: No Hx Coronary Artery Bypass Graft: No Hx Coronary Stent: No Hx Tonsillectomy: No - ANESTHESIA Hx Anesthesia: Yes Hx Anesthesia Reactions: No Hx Malignant Hyperthermia: No Meds Home Medications: Home Medication List Medication Instructions Recorded Confirmed Type Acetaminophen [Tylenol 325mg tab] 650 mg PO Q6 PRN tab 11/21/17 Rx Albuterol 0.083% [Albuterol 0.083% 2.5 mg INH RQ4 PRN neb 11/21/17 Rx Inhal Carmen (2.5 mg/3 ml) UD] Aspirin [Ecotrin] 81 mg PO DAILY tabec 11/21/17 Rx Bisacodyl [Dulcolax] 5 mg PO DAILY PRN ect 11/21/17 Rx Ferrous Sulfate [Feosol] 325 mg PO BID tab 11/21/17 Rx Furosemide [Lasix] 40 mg IVP DAILY vial 11/21/17 Rx Ipratropium 0.02% [Atrovent] 0.5 mg IH RQID neb 11/21/17 Rx Lactulose [Enulose] 10 gm PO DAILY PRN udc 11/21/17 Rx Losartan [Cozaar] 50 mg PO DAILY tab 11/21/17 Rx amLODIPine [Norvasc] 5 mg PO DAILY tab 11/21/17 Rx hydrOXYzine Pamoate [Vistaril] 25 mg PO Q12 PRN cap 11/21/17 Rx Allergies/Adverse Reactions: Allergies Allergy/AdvReac Type Severity Reaction Status Date / Time No Known Allergies Allergy Verified 11/21/17 18:11 - Medications Medications: Current Medications Acetaminophen (Tylenol 325mg Tab) 650 mg PO Q6 PRN PRN Reason: Headache Last Admin: 11/13/17 22:53 Dose: 650 mg Aspirin (Ecotrin) 81 mg PO DAILY [facility] Last Admin: 11/14/17 11:09 Dose: 81 mg Enoxaparin Sodium (Lovenox) 40 mg SC DAILY [facility] PRN Reason: Protocol Last Admin: 11/14/17 11:08 Dose: 40 mg Ferrous Sulfate (Feosol) 325 mg PO BID [facility] Last Admin: 11/14/17 11:08 Dose: 325 mg Sodium Chloride (Sodium Chloride 0.9%) 1,000 mls @ 100 mls/hr IV .Q10H [facility] Last Admin: 11/13/17 06:54 Dose: Not Given Insulin Human Lispro (Humalog) 0 units SC ACHS [facility] PRN Reason: Protocol Memantine (Namenda) 10 mg PO Q12 [facility] Last Admin: 11/13/17 21:50 Dose: 10 mg Metoprolol Succinate (Toprol Xl) 50 mg PO DAILY [facility] Last Admin: 11/14/17 11:09 Dose: 50 mg Montelukast Sodium (Singulair) 10 mg PO HS [facility] Last Admin: 11/13/17 21:50 Dose: 10 mg Pantoprazole Sodium (Protonix Ec Tab) 40 mg PO HS [facility] Last Admin: 11/13/17 21:50 Dose: 40 mg Paroxetine HCl (Paxil) 20 mg PO DAILY [facility] Last Admin: 11/14/17 11:10 Dose: 20 mg Pravastatin Sodium (Pravachol) 20 mg PO HS [facility] Last Admin: 11/13/17 21:50 Dose: 20 mg Physical Exam - Constitutional Appears: Non-toxic - Head Exam Head Exam: NORMAL INSPECTION - Eye Exam Eye Exam: Normal appearance - ENT Exam ENT Exam: Mucous Membranes Moist - Neck Exam Neck exam: Positive for: Full Rom - Respiratory Exam Respiratory Exam: Decreased Breath Sounds - Cardiovascular Exam Cardiovascular Exam: REGULAR RHYTHM - GI/Abdominal Exam GI & Abdominal Exam: Normal Bowel Sounds - Rectal Exam Rectal Exam: Deferred - Extremities Exam Extremities exam: Positive for: pedal edema - Back Exam Back exam: NORMAL INSPECTION - Neurological Exam Neurological exam: Alert, Oriented x3 - Psychiatric Exam Psychiatric exam: Normal Affect - Skin Skin Exam: Normal Color Results - Vital Signs Recent Vital Signs: Last Vital Signs Temp 97.2 F L 11/14/17 16:46 Pulse 52 L 11/14/17 16:46 Resp 18 11/14/17 16:46 BP 146/72 11/14/17 16:46 Pulse Ox 95 11/14/17 16:46 - Labs Result Diagrams: 11/19/17 04:15 11/19/17 04:15 Labs: Laboratory Results - last 24 hr 11/13/17 11/13/17 11/14/17 14:23 14:23 05:46 WBC RBC Hgb Hct MCV MCH MCHC RDW Plt Count MPV Neut % (Auto) Lymph % (Auto) [place] % (Auto) Eos % (Auto) Baso % (Auto) Neut # (Auto) Lymph # (Auto) [place] # (Auto) Eos # (Auto) Baso # (Auto) Sodium Potassium Chloride Carbon Dioxide Anion Gap BUN Creatinine Est GFR ( Amer) Est GFR (Non-Af Amer) POC Glucose (mg/dL) 111 H Random Glucose Calcium Total Bilirubin Direct Bilirubin GGT 242 H AST ALT Alkaline Phosphatase Total Protein Albumin Globulin Albumin/Globulin Ratio Hepatitis A IgM Ab Negative Hep Bs Antigen Negative Hepatitis C Antibody Negative 11/14/17 11/14/17 11/14/17 05:50 05:50 10:52 WBC 9.3 RBC 3.32 L Hgb 8.7 L Hct 26.9 L MCV 81.1 MCH 26.2 L MCHC 32.3 L RDW 18.0 H Plt Count 183 MPV 8.6 Neut % (Auto) 88.5 H Lymph % (Auto) 5.4 L [place] % (Auto) 5.8 Eos % (Auto) 0.0 Baso % (Auto) 0.3 Neut # (Auto) 8.2 H Lymph # (Auto) 0.5 L [place] # (Auto) 0.5 Eos # (Auto) 0.0 Baso # (Auto) 0.0 Sodium 143 Potassium 4.1 Chloride 97 L Carbon Dioxide 36 H Anion Gap 14 BUN 41 H Creatinine 1.0 Est GFR ( Amer) > 60 Est GFR (Non-Af Amer) 53 POC Glucose (mg/dL) Random Glucose 124 H Calcium 8.5 Total Bilirubin 0.4 Direct Bilirubin 0.4 GGT AST 80 H D ALT 122 H D Alkaline Phosphatase 136 H D Total Protein 6.0 L Albumin 3.1 L Globulin 2.9 Albumin/Globulin Ratio 1.1 Hepatitis A IgM Ab Hep Bs Antigen Hepatitis C Antibody 11/14/17 10:56 WBC RBC Hgb Hct MCV MCH MCHC RDW Plt Count MPV Neut % (Auto) Lymph % (Auto) [place] % (Auto) Eos % (Auto) Baso % (Auto) Neut # (Auto) Lymph # (Auto) [place] # (Auto) Eos # (Auto) Baso # (Auto) Sodium Potassium Chloride Carbon Dioxide Anion Gap BUN Creatinine Est GFR ( Amer) Est GFR (Non-Af Amer) POC Glucose (mg/dL) 211 H Random Glucose Calcium Total Bilirubin Direct Bilirubin GGT AST ALT Alkaline Phosphatase Total Protein Albumin Globulin Albumin/Globulin Ratio Hepatitis A IgM Ab Hep Bs Antigen Hepatitis C Antibody - EKG Data EKG Interpreted by: Myself EKG shows normal: Sinus rhythm Assessment & Plan (1) CVA (cerebral vascular accident) Assessment and Plan: will need management of blood pressure with lipid therapy as well Status: Acute (2) Hypertension Assessment and Plan: will adjust blood pressure therapy Status: Chronic
--- NOTE | 2017-11-14 16:58 | CP.PCM.PN ---
Subjective - Date & Time of Evaluation Date of Evaluation: 11/14/17 Time of Evaluation: 16:55 - Subjective Subjective: came to evaluate patient but she is off the floor Objective - Vital Signs/Intake and Output Vital Signs (last 24 hours): Temp Pulse Resp BP Pulse Ox 97.2 F L 52 L 18 146/72 95 11/14/17 16:46 11/14/17 16:46 11/14/17 16:46 11/14/17 16:46 11/14/17 16:46 - Medications Medications: Current Medications Acetaminophen (Tylenol 325mg Tab) 650 mg PO Q6 PRN PRN Reason: Headache Last Admin: 11/13/17 22:53 Dose: 650 mg Aspirin (Ecotrin) 81 mg PO DAILY [facility] Last Admin: 11/14/17 11:09 Dose: 81 mg Enoxaparin Sodium (Lovenox) 40 mg SC DAILY [facility] PRN Reason: Protocol Last Admin: 11/14/17 11:08 Dose: 40 mg Ferrous Sulfate (Feosol) 325 mg PO BID [facility] Last Admin: 11/14/17 11:08 Dose: 325 mg Sodium Chloride (Sodium Chloride 0.9%) 1,000 mls @ 100 mls/hr IV .Q10H [facility] Last Admin: 11/13/17 06:54 Dose: Not Given Insulin Human Lispro (Humalog) 0 units SC ACHS [facility] PRN Reason: Protocol Memantine (Namenda) 10 mg PO Q12 [facility] Last Admin: 11/13/17 21:50 Dose: 10 mg Metoprolol Succinate (Toprol Xl) 50 mg PO DAILY [facility] Last Admin: 11/14/17 11:09 Dose: 50 mg Montelukast Sodium (Singulair) 10 mg PO HS [facility] Last Admin: 11/13/17 21:50 Dose: 10 mg Pantoprazole Sodium (Protonix Ec Tab) 40 mg PO HS [facility] Last Admin: 11/13/17 21:50 Dose: 40 mg Paroxetine HCl (Paxil) 20 mg PO DAILY [facility] Last Admin: 11/14/17 11:10 Dose: 20 mg Pravastatin Sodium (Pravachol) 20 mg PO HS [facility] Last Admin: 11/13/17 21:50 Dose: 20 mg - Labs Labs: 11/14/17 05:50 11/14/17 05:50 PT 12.7 Seconds (9.8-13.1) 11/12/17 18:34 INR 1.1 (0.9-1.2) 11/12/17 18:34 APTT 27.3 Seconds (25.6-37.1) 11/12/17 18:34
--- NOTE | 2017-11-14 17:18 | CT ---
PROCEDURE: CT Angiography of the Brain. HISTORY: right sided weakness COMPARISON: None available. TECHNIQUE: CT angiography of the intracranial and cervical arteries was performed. Coronal and sagittal maximum intensity projection reformated images were generated. Contrast Dose: Visipaque 320, 100 cc Radiation dose:Total exam DLP = 2011.41 mGy-cm. This CT exam was performed using one or more of the following dose reduction techniques: Automated exposure control, adjustment of the mA and/or kV according to patient size, and/or use of iterative reconstruction technique. FINDINGS: INTERNAL CEREBRAL ARTERIES: Unremarkable. The skull base, petrous, cavernous and supraclinoid segments are bilaterally widely patent. ANTERIOR CEREBRAL ARTERIES: Unremarkable. A1 and A2 segments are widely patent. Smaller distal branches unremarkable, as visualized. MIDDLE CEREBRAL ARTERIES: Unremarkable. M1 and M2 segments are widely patent. Perisylvian branches grossly symmetric. POSTERIOR CIRCULATION: Basilar Artery: Unremarkable. Distal Vertebral Arteries: Unremarkable. Left dominant vertebrobasilar circulation. Posterior Cerebral Arteries: Unremarkable. Posterior Inferior Cerebellar Arteries: Unremarkable. NECK CTA: Common Carotid arteries: The bilateral common carotid appear patent from their origins to their bifurcations with no significant stenosis appreciated. Atherosclerotic plaque is seen at the right greater than left carotid bulb levels. No evidence to suggest common carotid artery dissection. Internal Carotid arteries: No significant stenosis is appreciated throughout the cervical internal carotid artery segments bilaterally and there is no evidence of dissection either. External Carotid arteries: Appear unremarkable bilaterally. Vertebral arteries: The bilateral vertebral arteries appear normal in caliber from their origins to their junction with the basilar artery. No significant stenosis or definite pattern of dissection. ANEURYSM/ VASCULAR MALFORMATIONS: None. OTHER FINDINGS: None. IMPRESSION: Unremarkable CT Angiography of the Brain. Bilateral carotid bulbar atherosclerosis is appreciated at the right greater than left sides with nevertheless widely patent bilateral common and internal carotid arteries as discussed above. No significant stenosis identified.
--- NOTE | 2017-11-14 17:45 | US ---
HISTORY: [facility] COMPARISON: Abdomen pelvis CT without contrast 04/04/2015. TECHNIQUE: Sonographic evaluation of the abdomen. FINDINGS: LIVER: Measures 13.5 cm. Normal echogenicity of the liver parenchyma. No mass. No intrahepatic bile duct dilatation. GALLBLADDER: No cholelithiasis identified or sonographic Corea sign however the wall appears thickened to 4 mm. No pericholecystic fluid collection identified COMMON BILE DUCT: Measures 4.0 mm. No stones. No dilatation. PANCREAS: The pancreas is obscured by body habitus and overlying bowel gas. The midportion of the body appears unremarkable the remainder obscured. RIGHT KIDNEY: Measures 9.5cm. Normal echogenicity. No calculus, mass, or hydronephrosis. LEFT KIDNEY: Measures 8.8cm. Normal echogenicity. No calculus, mass, or hydronephrosis. SPLEEN: The spleen is unremarkable, measuring 8.2 cm. AORTA: No aneurysmal dilatation. IVC: Unremarkable. OTHER FINDINGS: Incidental limited perisplenic ascites is identified. IMPRESSION: Limited perisplenic ascites. Thickening of the gallbladder wall is appreciated without cholelithiasis or pericholecystic fluid collection. No biliary tree dilatation is grossly evident. Clinically correlate. Cholecystitis is not completely excluded but there is no sonographic Corea's sign either. Partial imaging of the pancreas. Remainder the examination appears unremarkable.
--- NOTE | 2017-11-14 18:11 | CARD ---
APPROVED REPORT EKG Measurement Heart [id number] <Conclusion> Sinus bradycardia Otherwise normal ECG
--- NOTE | 2017-11-14 18:17 | CARD ---
APPROVED REPORT EKG Measurement Heart [id number] <Conclusion> Sinus bradycardia Otherwise normal ECG
[2017-11-14] MEDS ORDERED: Labetalol 5mg/ml (4ml) IVP STA (19:23)
[2017-11-14] MEDS: Pantoprazole 40 mg EC Tab PO SCH (21:34)
[2017-11-15 06:41] LABS: ALB/GLOB RATIO 1.1 (1.0-2.1); ALBUMIN 3.3 g/dL (3.5-5.0); ALT/SGPT 119 U/L (9-52); AST/SGOT 63 U/L (14-36); BLOOD UREA NITROGEN 39 mg/dl (7-17); CALCIUM 8.9 mg/dL (8.4-10.2); GFR AFRICAN-AMERICAN > 60; GFR NON-AFRICAN AMERICAN 53
[2017-11-15] MEDS: Insulin Lispro (humaLOG) 100 Units/ml Inj SC SCH ×4 (09:20→22:45)
[2017-11-15] MEDS: Metoprolol Succinate 50 mg XL Tab PO SCH ×2 (09:30→17:17)
[2017-11-15] MEDS: Enoxaparin 40 mg Syringe SC SCH (09:32)
[2017-11-15] MEDS ORDERED: Epoetin Alfa 20000 UNIT/ML Inj SC ONE (12:30)
[2017-11-15] MEDS: Pantoprazole 40 mg EC Tab PO SCH (22:45)
[2017-11-16] MEDS: Enoxaparin 40 mg Syringe SC SCH (08:51)
[2017-11-16] MEDS: Metoprolol Succinate 50 mg XL Tab PO SCH ×2 (08:52→19:01)
[2017-11-16] MEDS: Insulin Lispro (humaLOG) 100 Units/ml Inj SC SCH ×3 (08:55→19:00)
--- NOTE | 2017-11-16 13:14 | CP.PCM.PN ---
Subjective - Date & Time of Evaluation Date of Evaluation: 11/16/17 Time of Evaluation: 13:13 - Subjective Subjective: Ms. Torres was seen and examined at the bedside. She is alert, with slightly dysarthric and poor dentition. She is able to participate during assessment, follow commands. She denies any headache, dizziness. She is able to raise bilateral upper extremities and moves lower extremities. CTA of the head and neck showed bilateral carotid bulbar atherosclerosis is appreciated at the right greater than the left sides with nevertheless widely patent bilateral common and internal carotid arteries. No significant stenosis identified. There was no untoward events overnight. Objective - Vital Signs/Intake and Output Vital Signs (last 24 hours): Temp Pulse Resp BP Pulse Ox 97.1 F L 61 20 128/57 L 99 11/16/17 12:05 11/16/17 12:05 11/16/17 12:05 11/16/17 12:05 11/16/17 12:05 - Medications Medications: Current Medications Acetaminophen (Tylenol 325mg Tab) 650 mg PO Q6 PRN PRN Reason: Headache Last Admin: 11/15/17 14:05 Dose: 650 mg Alprazolam (Xanax) 0.25 mg PO DAILY PRN PRN Reason: Anxiety Stop: 11/23/17 09:01 Amlodipine Besylate (Norvasc) 5 mg PO DAILY [facility] Last Admin: 11/16/17 08:53 Dose: 5 mg Aspirin (Ecotrin) 81 mg PO DAILY [facility] Last Admin: 11/16/17 08:51 Dose: 81 mg Enoxaparin Sodium (Lovenox) 40 mg SC DAILY [facility] PRN Reason: Protocol Last Admin: 11/16/17 08:51 Dose: 40 mg Ferrous Sulfate (Feosol) 325 mg PO BID [facility] Last Admin: 11/16/17 08:51 Dose: 325 mg Sodium Chloride (Sodium Chloride 0.9%) 1,000 mls @ 100 mls/hr IV .Q10H [facility] Last Admin: 11/13/17 06:54 Dose: Not Given Insulin Human Lispro (Humalog) 0 units SC ACHS [facility] PRN Reason: Protocol Last Admin: 11/16/17 08:55 Dose: Not Given Losartan Potassium (Cozaar) 50 mg PO DAILY [facility] Last Admin: 11/16/17 08:54 Dose: 50 mg Memantine (Namenda) 10 mg PO Q12 [facility] Last Admin: 11/13/17 21:50 Dose: 10 mg Metoprolol Succinate (Toprol Xl) 50 mg PO BID [facility] Last Admin: 11/16/17 08:52 Dose: Not Given Montelukast Sodium (Singulair) 10 mg PO [facility] Last Admin: 11/15/17 22:45 Dose: 10 mg Pantoprazole Sodium (Protonix Ec Tab) 40 mg PO [facility] Last Admin: 11/15/17 22:45 Dose: 40 mg Paroxetine HCl (Paxil) 20 mg PO DAILY [facility] Last Admin: 11/16/17 08:55 Dose: 20 mg Pravastatin Sodium (Pravachol) 20 mg PO [facility] Last Admin: 11/13/17 21:50 Dose: 20 mg - Labs Labs: 11/14/17 05:50 11/15/17 05:32 PT 12.7 Seconds (9.8-13.1) 11/12/17 18:34 INR 1.1 (0.9-1.2) 11/12/17 18:34 APTT 27.3 Seconds (25.6-37.1) 11/12/17 18:34 - Constitutional Appears: No Acute Distress - Head Exam Head Exam: NORMAL INSPECTION - Neurological Exam Neurological Exam: Alert, Awake Neuro motor strength exam: Left Upper Extremity: 4, Right Upper Extremity: 4, Left Lower Extremity: 3, Right Lower Extremity: 3 Additional comments: Neurological improved. She is able to participate during assessment, follow commands. Assessment and Plan (1) Encephalopathy Assessment & Plan: Case discussed with Dr. Bowden, continue all current medical, physical, and occupational therapies. Pending EEG. Recommend treat any electrolyte abnormalities. Status: Acute
[2017-11-16] MEDS: Pantoprazole 40 mg EC Tab PO SCH (21:43)
--- NOTE | 2017-11-17 00:02 | CP.PCM.PN ---
Subjective - Date & Time of Evaluation Date of Evaluation: 11/15/17 Time of Evaluation: 10:30 - Subjective Subjective: Patient was noted to be cooperative. Sitted most of the time No fever Has no cough. Objective - Vital Signs/Intake and Output Vital Signs (last 24 hours): Temp Pulse Resp BP Pulse Ox 98.5 F 57 L 17 116/77 100 11/16/17 19:13 11/16/17 21:00 11/16/17 19:13 11/16/17 19:13 11/16/17 19:13 - Medications Medications: Current Medications Acetaminophen (Tylenol 325mg Tab) 650 mg PO Q6 PRN PRN Reason: Headache Last Admin: 11/15/17 14:05 Dose: 650 mg Alprazolam (Xanax) 0.25 mg PO DAILY PRN PRN Reason: Anxiety Stop: 11/23/17 09:01 Last Admin: 11/16/17 13:13 Dose: 0.25 mg Amlodipine Besylate (Norvasc) 5 mg PO DAILY [facility] Last Admin: 11/16/17 08:53 Dose: 5 mg Aspirin (Ecotrin) 81 mg PO DAILY [facility] Last Admin: 11/16/17 08:51 Dose: 81 mg Ferrous Sulfate (Feosol) 325 mg PO BID [facility] Last Admin: 11/16/17 19:00 Dose: Not Given Sodium Chloride (Sodium Chloride 0.9%) 1,000 mls @ 100 mls/hr IV .Q10H [facility] Last Admin: 11/13/17 06:54 Dose: Not Given Insulin Human Lispro (Humalog) 0 units SC ACHS [facility] PRN Reason: Protocol Last Admin: 11/16/17 19:00 Dose: Not Given Losartan Potassium (Cozaar) 50 mg PO DAILY [facility] Last Admin: 11/16/17 08:54 Dose: 50 mg Memantine (Namenda) 10 mg PO Q12 [facility] Last Admin: 11/13/17 21:50 Dose: 10 mg Metoprolol Succinate (Toprol Xl) 50 mg PO BID [facility] Last Admin: 11/16/17 19:01 Dose: Not Given Montelukast Sodium (Singulair) 10 mg PO [facility] Last Admin: 11/16/17 21:42 Dose: 10 mg Pantoprazole Sodium (Protonix Ec Tab) 40 mg PO [facility] Last Admin: 11/16/17 21:43 Dose: 40 mg Paroxetine HCl (Paxil) 20 mg PO DAILY [facility] Last Admin: 11/16/17 08:55 Dose: 20 mg Pravastatin Sodium (Pravachol) 20 mg PO HS [facility] Last Admin: 11/13/17 21:50 Dose: 20 mg - Labs Labs: 11/14/17 05:50 11/15/17 05:32 PT 12.7 Seconds (9.8-13.1) 11/12/17 18:34 INR 1.1 (0.9-1.2) 11/12/17 18:34 APTT 27.3 Seconds (25.6-37.1) 11/12/17 18:34 - Head Exam Head Exam: NORMAL INSPECTION - ENT Exam ENT Exam: Mucous Membranes Moist - Respiratory Exam Respiratory Exam: Clear to Ausculation Bilateral - Cardiovascular Exam Cardiovascular Exam: REGULAR RHYTHM - GI/Abdominal Exam GI & Abdominal Exam: Normal Bowel Sounds - Neurological Exam Neurological Exam: Awake, Oriented x3 Assessment and Plan (1) Anxiety Status: Acute (2) CVA (cerebral vascular accident) Status: Acute (3) Dementia Status: Chronic - Assessment and Plan (Free Text) Plan: Cont meds Cont tx Phys therapy xanax
--- NOTE | 2017-11-17 00:06 | CP.PCM.PN ---
Subjective - Date & Time of Evaluation Date of Evaluation: 11/16/17 Time of Evaluation: 14:00 - Subjective Subjective: Patient was being assisted with feeding Has no fever Has no SOB Has episodes of anxiety and was given xanax. Objective - Vital Signs/Intake and Output Vital Signs (last 24 hours): Temp Pulse Resp BP Pulse Ox 98.5 F 57 L 17 116/77 100 11/16/17 19:13 11/16/17 21:00 11/16/17 19:13 11/16/17 19:13 11/16/17 19:13 - Medications Medications: Current Medications Acetaminophen (Tylenol 325mg Tab) 650 mg PO Q6 PRN PRN Reason: Headache Last Admin: 11/15/17 14:05 Dose: 650 mg Alprazolam (Xanax) 0.25 mg PO DAILY PRN PRN Reason: Anxiety Stop: 11/23/17 09:01 Last Admin: 11/16/17 13:13 Dose: 0.25 mg Amlodipine Besylate (Norvasc) 5 mg PO DAILY [facility] Last Admin: 11/16/17 08:53 Dose: 5 mg Aspirin (Ecotrin) 81 mg PO DAILY [facility] Last Admin: 11/16/17 08:51 Dose: 81 mg Ferrous Sulfate (Feosol) 325 mg PO BID [facility] Last Admin: 11/16/17 19:00 Dose: Not Given Sodium Chloride (Sodium Chloride 0.9%) 1,000 mls @ 100 mls/hr IV .Q10H [facility] Last Admin: 11/13/17 06:54 Dose: Not Given Insulin Human Lispro (Humalog) 0 units SC ACHS [facility] PRN Reason: Protocol Last Admin: 11/16/17 19:00 Dose: Not Given Losartan Potassium (Cozaar) 50 mg PO DAILY [facility] Last Admin: 11/16/17 08:54 Dose: 50 mg Memantine (Namenda) 10 mg PO Q12 [facility] Last Admin: 11/13/17 21:50 Dose: 10 mg Metoprolol Succinate (Toprol Xl) 50 mg PO BID [facility] Last Admin: 11/16/17 19:01 Dose: Not Given Montelukast Sodium (Singulair) 10 mg PO HS [facility] Last Admin: 11/16/17 21:42 Dose: 10 mg Pantoprazole Sodium (Protonix Ec Tab) 40 mg PO [facility] Last Admin: 11/16/17 21:43 Dose: 40 mg Paroxetine HCl (Paxil) 20 mg PO DAILY [facility] Last Admin: 11/16/17 08:55 Dose: 20 mg Pravastatin Sodium (Pravachol) 20 mg PO HS [facility] Last Admin: 11/13/17 21:50 Dose: 20 mg - Labs Labs: 11/14/17 05:50 11/15/17 05:32 PT 12.7 Seconds (9.8-13.1) 11/12/17 18:34 INR 1.1 (0.9-1.2) 11/12/17 18:34 APTT 27.3 Seconds (25.6-37.1) 11/12/17 18:34 - Head Exam Head Exam: NORMAL INSPECTION - Eye Exam Eye Exam: Normal appearance - ENT Exam ENT Exam: Mucous Membranes Moist - Cardiovascular Exam Cardiovascular Exam: REGULAR RHYTHM - GI/Abdominal Exam GI & Abdominal Exam: Normal Bowel Sounds - Neurological Exam Neurological Exam: Awake, Oriented x3 Assessment and Plan (1) CVA (cerebral vascular accident) Status: Acute (2) Anxiety Status: Acute (3) Hypertension Status: Chronic (4) Pleural effusion Status: Chronic - Assessment and Plan (Free Text) Plan: Cont meds Cont tx Cont PT xanax DC plans
[2017-11-17] MEDS: Insulin Lispro (humaLOG) 100 Units/ml Inj SC SCH ×5 (06:16→21:50)
--- NOTE | 2017-11-17 11:14 | CP.PCM.PN ---
Subjective - Date & Time of Evaluation Date of Evaluation: 11/17/17 Time of Evaluation: 11:10 - Subjective Subjective: Ms. Torres was seen nad examined at the bedside. She is alert, speaks mainly maori. She response well with in person conference interpreter in comparison to a video conference interpreter. She denies any headache, dizziness, blurred vision. 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 She is currently on oxygen via nasal cannula, no s/s of distress. She is able to follow simple commands. She is schedule for EEG, but unable to tolerate laying still, per staff the family refused to any sedation for her procedure. There was no untoward events overnight. Objective - Vital Signs/Intake and Output Vital Signs (last 24 hours): Temp Pulse Resp BP Pulse Ox 97.9 F 58 L 20 132/49 L 100 11/17/17 08:15 11/17/17 08:15 11/17/17 08:15 11/17/17 08:15 11/17/17 08:15 - Medications Medications: Current Medications Acetaminophen (Tylenol 325mg Tab) 650 mg PO Q6 PRN PRN Reason: Headache Last Admin: 11/15/17 14:05 Dose: 650 mg Alprazolam (Xanax) 0.25 mg PO DAILY PRN PRN Reason: Anxiety Stop: 11/23/17 09:01 Last Admin: 11/16/17 13:13 Dose: 0.25 mg Amlodipine Besylate (Norvasc) 5 mg PO DAILY [facility] Last Admin: 11/16/17 08:53 Dose: 5 mg Aspirin (Ecotrin) 81 mg PO DAILY [facility] Last Admin: 11/16/17 08:51 Dose: 81 mg Ferrous Sulfate (Feosol) 325 mg PO BID [facility] Last Admin: 11/16/17 19:00 Dose: Not Given Sodium Chloride (Sodium Chloride 0.9%) 1,000 mls @ 100 mls/hr IV .Q10H [facility] Last Admin: 11/13/17 06:54 Dose: Not Given Insulin Human Lispro (Humalog) 0 units SC ACHS [facility] PRN Reason: Protocol Last Admin: 11/17/17 06:16 Dose: Not Given Losartan Potassium (Cozaar) 50 mg PO DAILY [facility] Last Admin: 11/16/17 08:54 Dose: 50 mg Memantine (Namenda) 10 mg PO Q12 [facility] Last Admin: 11/13/17 21:50 Dose: 10 mg Metoprolol Succinate (Toprol Xl) 50 mg PO BID [facility] Last Admin: 11/16/17 19:01 Dose: Not Given Montelukast Sodium (Singulair) 10 mg PO HS [facility] Last Admin: 11/16/17 21:42 Dose: 10 mg Pantoprazole Sodium (Protonix Ec Tab) 40 mg PO HS [facility] Last Admin: 11/16/17 21:43 Dose: 40 mg Paroxetine HCl (Paxil) 20 mg PO DAILY [facility] Last Admin: 11/16/17 08:55 Dose: 20 mg Pravastatin Sodium (Pravachol) 20 mg PO HS [facility] Last Admin: 11/13/17 21:50 Dose: 20 mg - Labs Labs: 11/14/17 05:50 11/15/17 05:32 PT 12.7 Seconds (9.8-13.1) 11/12/17 18:34 INR 1.1 (0.9-1.2) 11/12/17 18:34 APTT 27.3 Seconds (25.6-37.1) 11/12/17 18:34 - Constitutional Appears: No Acute Distress - Head Exam Head Exam: NORMAL INSPECTION - Neurological Exam Neurological Exam: Alert, Awake Neuro motor strength exam: Left Upper Extremity: 4, Right Upper Extremity: 4, Left Lower Extremity: 3, Right Lower Extremity: 3 Additional comments: She is able to follow simple commands and back to her baseline which is doing needle work. Sensation remains intact. Assessment and Plan (1) Encephalopathy Assessment & Plan: Case discussed with Dr. Gonzalez, continue all current medical, physical and occupational therapies. Recommend to treat any electrolyte abnormalities and blood pressure control. Status: Acute
[2017-11-17 11:36] LABS: MEAN CELL VOLUME 82.3 fl (81.0-99.0); MEAN CORPUSCULAR HEMOGLOBIN 26.7 pg (27.0-31.0); MEAN CORPUSCULAR HGB CONC 32.5 g/dL (33.0-37.0); RBC 3.73 Mil/uL (3.80-5.20); RED CELL DISTRIBUTION WIDTH 18.8 % (11.5-14.5); WHITE BLOOD COUNT 8.9 K/uL (4.8-10.8)
[2017-11-17 11:47] LABS: BLOOD UREA NITROGEN 35 mg/dl (7-17); CALCIUM 8.9 mg/dL (8.4-10.2); GFR AFRICAN-AMERICAN > 60; GFR NON-AFRICAN AMERICAN 53
[2017-11-17] MEDS: Metoprolol Succinate 50 mg XL Tab PO SCH ×2 (11:48→18:44)
--- NOTE | 2017-11-17 15:20 | RAD ---
HISTORY: Shortness of breath. COMPARISON: 11/12/2017 TECHNIQUE: Standard protocol for this study/examination. FINDINGS: LUNGS: Stable lower lobe consolidative changes. PLEURA: Stable bilateral pleural effusions including partially loculated right pleural effusion. CARDIOVASCULAR: Stable cardiomegaly. OSSEOUS STRUCTURES: No significant abnormalities. VISUALIZED UPPER ABDOMEN: Normal. OTHER FINDINGS: None. IMPRESSION: No significant interval change compared to the prior examination(s).
[2017-11-17] MEDS ORDERED: Albuterol-Ipratrop 3 mg / 0.5 (3 ml) UD INH ONE (17:00)
--- NOTE | 2017-11-17 21:21 | CP.PCM.PN ---
Subjective - Date & Time of Evaluation Date of Evaluation: 11/17/17 Time of Evaluation: 17:17 - Subjective Subjective: Patient has been stable. Noted to be doing her crocheting activity in the morning But had episodes of sudden anxiety attack in the afternoon. She is on Xanax and responded well to it. Has no fever Has no cough, She complained of increased SOB during attack. CXR showed no change in findings. Objective - Vital Signs/Intake and Output Vital Signs (last 24 hours): Temp Pulse Resp BP Pulse Ox 98.3 F 61 20 135/75 100 11/17/17 19:33 11/17/17 19:55 11/17/17 19:33 11/17/17 19:33 11/17/17 19:33 - Medications Medications: Current Medications Acetaminophen (Tylenol 325mg Tab) 650 mg PO Q6 PRN PRN Reason: Headache Last Admin: 11/15/17 14:05 Dose: 650 mg Alprazolam (Xanax) 0.25 mg PO DAILY PRN PRN Reason: Anxiety Stop: 11/23/17 09:01 Last Admin: 11/16/17 13:13 Dose: 0.25 mg Amlodipine Besylate (Norvasc) 5 mg PO DAILY [facility] Last Admin: 11/17/17 11:48 Dose: 5 mg Aspirin (Ecotrin) 81 mg PO DAILY [facility] Last Admin: 11/17/17 11:49 Dose: 81 mg Ferrous Sulfate (Feosol) 325 mg PO BID [facility] Last Admin: 11/17/17 18:44 Dose: Not Given Sodium Chloride (Sodium Chloride 0.9%) 1,000 mls @ 100 mls/hr IV .Q10H [facility] Last Admin: 11/13/17 06:54 Dose: Not Given Insulin Human Lispro (Humalog) 0 units SC ACHS [facility] PRN Reason: Protocol Last Admin: 11/17/17 17:15 Dose: 2 unit Losartan Potassium (Cozaar) 50 mg PO DAILY [facility] Last Admin: 11/17/17 11:49 Dose: 50 mg Memantine (Namenda) 10 mg PO Q12 [facility] Last Admin: 11/13/17 21:50 Dose: 10 mg Metoprolol Succinate (Toprol Xl) 50 mg PO BID [facility] Last Admin: 11/17/17 18:44 Dose: Not Given Montelukast Sodium (Singulair) 10 mg PO HS [facility] Last Admin: 11/16/17 21:42 Dose: 10 mg Pantoprazole Sodium (Protonix Ec Tab) 40 mg PO HS [facility] Last Admin: 11/16/17 21:43 Dose: 40 mg Paroxetine HCl (Paxil) 20 mg PO DAILY [facility] Last Admin: 11/17/17 11:48 Dose: 20 mg Pravastatin Sodium (Pravachol) 20 mg PO [facility] Last Admin: 11/13/17 21:50 Dose: 20 mg - Labs Labs: 11/17/17 11:20 11/17/17 11:20 PT 12.7 Seconds (9.8-13.1) 11/12/17 18:34 INR 1.1 (0.9-1.2) 11/12/17 18:34 APTT 27.3 Seconds (25.6-37.1) 11/12/17 18:34 - Head Exam Head Exam: NORMAL INSPECTION - Eye Exam Eye Exam: Normal appearance - ENT Exam ENT Exam: Mucous Membranes Moist - Respiratory Exam Respiratory Exam: Clear to Ausculation Bilateral - Cardiovascular Exam Cardiovascular Exam: REGULAR RHYTHM - GI/Abdominal Exam GI & Abdominal Exam: Normal Bowel Sounds - Neurological Exam Neurological Exam: CN II-XII Intact, Oriented x3 Assessment and Plan (1) CVA (cerebral vascular accident) Status: Acute (2) Anxiety Status: Acute (3) Dementia Status: Chronic (4) Pleural effusion Status: Chronic - Assessment and Plan (Free Text) Plan: Continue meds xanax 0.25 bid prn cont meds arrange for discharge POA desires to have patient arranged for another subacute / fpc preferably [facility].
[2017-11-17] MEDS: Pantoprazole 40 mg EC Tab PO SCH (21:54)
[2017-11-18] MEDS: Insulin Lispro (humaLOG) 100 Units/ml Inj SC SCH ×4 (07:00→22:04)
--- NOTE | 2017-11-18 08:55 | CP.PCM.CON ---
History of Present Illness - History of Present Illness History of Present Illness: Psychiatry consult called for anxiety Patient is a poor historian due to memory deficits, history obtained from the chart. CC: "I don't know why I'm in the hospital." HPI: 86 year old female with previous medical history of dementia, HTN, HLD, OA brought by family yesterday to ED with c/o new onset slurred speech. She was found to be hypertensive and hyperkalemic. Patient was admitted to telemetry unit after CT head showed no ischemic or hemorrhagic changes. Patient currently being followed by neurology consult. CTA of the head and neck showed bilateral carotid bulbar atherosclerosis is appreciated at the right greater than the left sides with nevertheless widely patent bilateral common and internal carotid arteries. No significant stenosis identified. Patient is alert only to self, does not know date, location, or president. Fret Saw Operator attempted to ask the patient if she feels depressed or anxious, but she does not answer appropriately. PMHx: Dementia, HTN, HLD, OA PPHx: Patient denies psychiatric history, but she is a poor historian; patient on Paxil 20 mg PO Daily ALL: NKDA Impression: 86 yo female w/ dementia and altered mental status, being followed by neurology consult. -Agree w/ neurology consult recommendations -For acute anxiety can consider treatment w/ Vistaril 25 mg PO q12 PRN anxiety -Consider increasing Paxil to 30 mg PO Daily if patient is able to express worsening depression and anxiety -No acute psychiatric admission indicated at this time Past Patient History - Past Medical History & Family History Past Medical History?: Yes - Past Social History Smoking Status: Never Smoked - CARDIAC Hx Hypercholesterolemia: Yes Hx Hypertension: Yes - PULMONARY Hx Chronic Obstructive Pulmonary Disease (COPD): Yes Hx Pneumonia: Yes - NEUROLOGICAL Hx Alzheimer's Disease: No Hx Dementia: Yes Hx Migraine: No Hx Multiple Sclerosis: No Hx Parkinson's Disease: No Hx Seizures: No Hx Transient Ischemic Attacks (TIA): No - HEENT Hx HEENT Problems: No - RENAL Hx Chronic Kidney Disease: No Hx Kidney Stones: No - ENDOCRINE/METABOLIC Hx Hyperthyroidism: No Hx Hypothyroidism: No - HEMATOLOGICAL/ONCOLOGICAL Hx Anemia: Yes Hx Human Immunodeficiency Virus (HIV): No Hx Sickle Cell Disease: No - INTEGUMENTARY Hx Dermatological Problems: No - MUSCULOSKELETAL/RHEUMATOLOGICAL Hx Arthritis: Yes - GASTROINTESTINAL Hx Crohn's Disease: No Hx Diverticulitis: Yes Hx Gall Bladder Disease: No Hx Gastritis: No Hx Pancreatitis: No - GENITOURINARY/GYNECOLOGICAL Hx Sexually Transmitted Disorders: No - PSYCHIATRIC Hx Anxiety: No Hx Bipolar Disorder: No Hx Depression: Yes Hx Paranoia: No Hx Post Traumatic Stress Disorder: No Hx Schizophrenia: No Hx Substance Use: No - SURGICAL HISTORY Hx Appendectomy: No Hx Carotid Endarterectomy: No Hx Cholecystectomy: No Hx Coronary Artery Bypass Graft: No Hx Coronary Stent: No Hx Tonsillectomy: No - ANESTHESIA Hx Anesthesia: Yes Hx Anesthesia Reactions: No Hx Malignant Hyperthermia: No Meds Allergies/Adverse Reactions: Allergies Allergy/AdvReac Type Severity Reaction Status Date / Time No Known Allergies Allergy Verified 11/12/17 18:02 - Medications Medications: Current Medications Acetaminophen (Tylenol 325mg Tab) 650 mg PO Q6 PRN PRN Reason: Headache Last Admin: 11/15/17 14:05 Dose: 650 mg Alprazolam (Xanax) 0.25 mg PO DAILY PRN PRN Reason: Anxiety Stop: 11/23/17 09:01 Last Admin: 11/17/17 23:44 Dose: 0.25 mg Amlodipine Besylate (Norvasc) 5 mg PO DAILY [facility] Last Admin: 11/17/17 11:48 Dose: 5 mg Aspirin (Ecotrin) 81 mg PO DAILY [facility] Last Admin: 11/17/17 11:49 Dose: 81 mg Ferrous Sulfate (Feosol) 325 mg PO BID [facility] Last Admin: 11/17/17 18:44 Dose: Not Given Sodium Chloride (Sodium Chloride 0.9%) 1,000 mls @ 100 mls/hr IV .Q10H [facility] Last Admin: 11/13/17 06:54 Dose: Not Given Insulin Human Lispro (Humalog) 0 units SC ACHS [facility] PRN Reason: Protocol Last Admin: 11/18/17 07:00 Dose: Not Given Losartan Potassium (Cozaar) 50 mg PO DAILY [facility] Last Admin: 11/17/17 11:49 Dose: 50 mg Memantine (Namenda) 10 mg PO Q12 [facility] Last Admin: 11/13/17 21:50 Dose: 10 mg Metoprolol Succinate (Toprol Xl) 50 mg PO BID [facility] Last Admin: 11/17/17 18:44 Dose: Not Given Montelukast Sodium (Singulair) 10 mg PO HS [facility] Last Admin: 11/17/17 21:54 Dose: 10 mg Pantoprazole Sodium (Protonix Ec Tab) 40 mg PO HS [facility] Last Admin: 11/17/17 21:54 Dose: 40 mg Paroxetine HCl (Paxil) 20 mg PO DAILY [facility] Last Admin: 11/17/17 11:48 Dose: 20 mg Pravastatin Sodium (Pravachol) 20 mg PO HS [facility] Last Admin: 11/13/17 21:50 Dose: 20 mg Results - Vital Signs Recent Vital Signs: Last Vital Signs Temp 96.7 F L 11/18/17 08:00 Pulse 54 L 11/18/17 08:00 Resp 20 11/18/17 08:00 BP 131/52 L 11/18/17 08:00 Pulse Ox 100 11/18/17 08:00 - Labs Result Diagrams: 11/17/17 11:20 11/17/17 11:20 Labs: Laboratory Results - last 24 hr 11/13/17 11/16/17 11/17/17 10:45 22:18 11:04 WBC RBC Hgb Hct MCV MCH MCHC RDW Plt Count Lupus Anticoagulant see note LA PTT Screen 35 dRVVT Mixing Study 38 dRVVT Mix Interpret Not indicated Sodium Potassium Chloride Carbon Dioxide Anion Gap BUN Creatinine Est GFR ( Amer) Est GFR (Non-Af Amer) POC Glucose (mg/dL) 96 99 Random Glucose Calcium 11/17/17 11/17/17 11/17/17 11:20 11:20 16:06 WBC 8.9 RBC 3.73 L Hgb 10.0 L Hct 30.7 L MCV 82.3 MCH 26.7 L MCHC 32.5 L RDW 18.8 H Plt Count 165 Lupus Anticoagulant LA PTT Screen dRVVT Mixing Study dRVVT Mix Interpret Sodium 142 Potassium 4.5 Chloride 94 L Carbon Dioxide 36 H Anion Gap 17 BUN 35 H Creatinine 1.0 Est GFR ( Amer) > 60 Est GFR (Non-Af Amer) 53 POC Glucose (mg/dL) 199 H Random Glucose 106 H Calcium 8.9 11/18/17 05:30 WBC RBC Hgb Hct MCV MCH MCHC RDW Plt Count Lupus Anticoagulant LA PTT Screen dRVVT Mixing Study dRVVT Mix Interpret Sodium Potassium Chloride Carbon Dioxide Anion Gap BUN Creatinine Est GFR ( Amer) Est GFR (Non-Af Amer) POC Glucose (mg/dL) 106 Random Glucose Calcium
--- NOTE | 2017-11-18 09:14 | PQF GENQUE ---
Dr. Gaviria, Please clarify if the CVA is ruled in or ruled out and if ruled in please specify the :type of CVA; the cause of the CVA, and the vessel involved: if known Diagnosis 1: CVA Documented by: Attending Location: H and P and current progress notes Diagnosis 2: Toxic Metabolic Encephalopathy Documented by: Neurologist Location: Consult and progress notes 11/[address] Impression: Mild atrophy. Mild nonspecific white matter changes. Please note that MRI with diffusion imaging is more sensitive in the detection of acute ischemic event. Opacification of the bilateral mastoid air cells; correlate clinically for mastoiditis. Small fluid, left sphenoid sinus. Remainder of the visualized paranasal sinuses appear clear. Neuro consult: Assessment Plan : (1) Dysarthria Assessment and Plan: The patient has significant metabolic derangements and may have toxic-metabolic encephalopathy contributing to her mental status change and dysarthria. Ischemic stroke is possible, but less likely without any other focal neurological deficits (no facial droop, no weakness or sensory changes). / Neuro note; She is unable to tolerate MRI yesterday, with order for seroquel prior to MRI. Assessment and Plan : (1) Encephalopathy : Acute 11/16 Neuro progress note; CTA of the head and neck showed bilateral carotid bulbar atherosclerosis is appreciated at the right greater than the left sides with nevertheless widely patent bilateral common and internal carotid arteries. No significant stenosis identified Assessment and Plan : (1) Encephalopathy Assessment Plan: Case discussed with Dr. Bowden, continue all current medical, physical, and occupational therapies. Pending EEG. Recommend treat any electrolyte abnormalities. Status: Acute This form is a permanent part of the medical record Clarification of your documentation is requested to better reflect the severity of illness and intensity of treatment of your patient. Indicators present [] Specify: [] [] Specify: [] [] Specify: [] [] Specify: [] Location in the medical record that reflects the above clinical findings: [] Treatment Provided: [] PHYSICIAN'S RESPONSE Based on your medical judgment of the clinical indicators outlined above please clarify the following: [] Practitioner response [] If unable to determine, please check the box, sign and date. Present On Admission (POA) Indicator: [] Present at the time of admission [] Not present at the time of admission [] Clinically Undetermined In responding to this query, please exercise your independent professional judgment. The fact that a question is asked does not imply that any particular answer is desired or expected. Thank you for your clarification on this documentation. If you have any questions please call. * Thank you, Ciara Monroe RN ext. #[phone] MTDD
[2017-11-18] MEDS: Metoprolol Succinate 50 mg XL Tab PO SCH ×2 (09:28→17:34)
[2017-11-18] MEDS: Albuterol-Ipratrop 3 mg / 0.5 (3 ml) UD INH PRN (12:15)
[2017-11-18] MEDS ORDERED: Lactulose 10 gm/15 ml Syrup PO PRN (13:10)
[2017-11-18] MEDS ORDERED: Bisacodyl 5mg EC Tab PO PRN (13:10)
--- NOTE | 2017-11-18 13:35 | CP.PCM.PN ---
<Feliberto Wagner - Last Filed: 11/18/17 13:33> Subjective - Date & Time of Evaluation Date of Evaluation: 11/18/17 Time of Evaluation: 08:00 - Subjective Subjective: No acute events overnight. Stable. Still confused. Able to respond to verbal commands with some difficulty. Denies any pain at this time. States "she feels ok". had episode of anxiety over the weekend that resolved with PO benzo. Objective - Vital Signs/Intake and Output Vital Signs (last 24 hours): Temp Pulse Resp BP Pulse Ox 98.1 F 60 20 120/72 100 11/18/17 12:45 11/18/17 12:45 11/18/17 12:45 11/18/17 12:45 11/18/17 12:45 - Medications Medications: Current Medications Acetaminophen (Tylenol 325mg Tab) 650 mg PO Q6 PRN PRN Reason: Headache Last Admin: 11/15/17 14:05 Dose: 650 mg Albuterol/Ipratropium (Duoneb 3 Mg/0.5 Mg (3 Ml) Ud) 3 ml INH RQ6 PRN PRN Reason: Shortness of Breath Last Admin: 11/18/17 12:15 Dose: 3 ml Alprazolam (Xanax) 0.25 mg PO DAILY PRN PRN Reason: Anxiety Stop: 11/23/17 09:01 Last Admin: 11/18/17 11:59 Dose: 0.25 mg Amlodipine Besylate (Norvasc) 5 mg PO DAILY [facility] Last Admin: 11/18/17 09:27 Dose: 5 mg Aspirin (Ecotrin) 81 mg PO DAILY [facility] Last Admin: 11/18/17 09:24 Dose: 81 mg Bisacodyl (Dulcolax) 5 mg PO DAILY PRN PRN Reason: Constipation Ferrous Sulfate (Feosol) 325 mg PO BID [facility] Last Admin: 11/18/17 09:24 Dose: 325 mg Sodium Chloride (Sodium Chloride 0.9%) 1,000 mls @ 100 mls/hr IV .Q10H [facility] Last Admin: 11/13/17 06:54 Dose: Not Given Insulin Human Lispro (Humalog) 0 units SC ACHS [facility] PRN Reason: Protocol Last Admin: 11/18/17 07:00 Dose: Not Given Lactulose (Enulose) 10 gm PO DAILY PRN PRN Reason: Constipation Losartan Potassium (Cozaar) 50 mg PO DAILY [facility] Last Admin: 11/18/17 09:24 Dose: Not Given Memantine (Namenda) 10 mg PO Q12 [facility] Last Admin: 11/18/17 09:25 Dose: Not Given Metoprolol Succinate (Toprol Xl) 50 mg PO BID [facility] Last Admin: 11/18/17 09:28 Dose: Not Given Montelukast Sodium (Singulair) 10 mg PO [facility] Last Admin: 11/17/17 21:54 Dose: 10 mg Pantoprazole Sodium (Protonix Ec Tab) 40 mg PO HS [facility] Last Admin: 11/17/17 21:54 Dose: 40 mg Paroxetine HCl (Paxil) 20 mg PO DAILY [facility] Last Admin: 11/18/17 09:25 Dose: 20 mg Pravastatin Sodium (Pravachol) 20 mg PO [facility] Last Admin: 11/13/17 21:50 Dose: 20 mg - Labs Labs: 11/17/17 11:20 11/17/17 11:20 PT 12.7 Seconds (9.8-13.1) 11/12/17 18:34 INR 1.1 (0.9-1.2) 11/12/17 18:34 APTT 27.3 Seconds (25.6-37.1) 11/12/17 18:34 - Constitutional Appears: Non-toxic, Confused, Chronically Ill - Eye Exam Eye Exam: PERRL - ENT Exam ENT Exam: Mucous Membranes Moist - Respiratory Exam Respiratory Exam: Clear to Ausculation Bilateral, NORMAL BREATHING PATTERN. absent: Rales - Cardiovascular Exam Cardiovascular Exam: REGULAR RHYTHM, +S1, +S2. absent: Gallop - GI/Abdominal Exam GI & Abdominal Exam: Soft, Normal Bowel Sounds. absent: Tenderness - Extremities Exam Extremities Exam: absent: Joint Swelling - Neurological Exam Neurological Exam: Alert, Awake. absent: Oriented x3 Additional comments: Unable to properly evaluate strength/sensitivity due to mental status - Psychiatric Exam Psychiatric exam: absent: Agitated - Skin Skin Exam: Normal Color, Warm Assessment and Plan - Assessment and Plan (Free Text) Assessment: AMS CT/CTA no acute IC ischemia or hemorrhage. CVA unlikely but patient couldnt tolerate MRI of the head for proper eval Neuro consult appreciated Psych consult ordered. Will f/u recs C/W Current plan Stable Worsening Dementia? Repeat CXR no active disease <Ariel Gaviria - Last Filed: 11/25/17 06:05> Objective - Vital Signs/Intake and Output Vital Signs (last 24 hours): Temp Pulse Resp BP Pulse Ox 97.5 F L 68 20 126/52 L 99 11/21/17 16:18 11/21/17 16:18 11/21/17 16:18 11/21/17 16:18 11/21/17 16:18 - Labs Labs: 11/19/17 04:15 11/19/17 04:15 PT 12.7 Seconds (9.8-13.1) 11/12/17 18:34 INR 1.1 (0.9-1.2) 11/12/17 18:34 APTT 27.3 Seconds (25.6-37.1) 11/12/17 18:34 Assessment and Plan (1) CVA (cerebral vascular accident) Status: Acute (2) Anxiety Status: Acute (3) Hypertension Status: Chronic (4) Pleural effusion Status: Chronic - Assessment and Plan (Free Text) Plan: I was present during evaluation and discussed with Dr Wagner re plans of care and mgt. Ariel Gaviria M.D.
[2017-11-18] MEDS: Pantoprazole 40 mg EC Tab PO SCH (21:45)
[2017-11-19 05:29] LABS: HEMOGLOBIN 9.7 g/dL (12.0-16.0); MEAN CELL VOLUME 83.7 fl (81.0-99.0); MEAN CORPUSCULAR HEMOGLOBIN 26.4 pg (27.0-31.0); MEAN CORPUSCULAR HGB CONC 31.6 g/dL (33.0-37.0); RBC 3.65 Mil/uL (3.80-5.20); RED CELL DISTRIBUTION WIDTH 19.1 % (11.5-14.5); WHITE BLOOD COUNT 8.6 K/uL (4.8-10.8)
[2017-11-19 05:59] LABS: ALB/GLOB RATIO 1.1 (1.0-2.1); ALBUMIN 3.3 g/dL (3.5-5.0); CALCIUM 8.9 mg/dL (8.4-10.2)
[2017-11-19] MEDS: Insulin Lispro (humaLOG) 100 Units/ml Inj SC SCH ×4 (06:29→21:57)
--- NOTE | 2017-11-19 12:15 | CP.PCM.PN ---
<Feliberto Wanger - Last Filed: 11/19/17 13:21> Subjective - Date & Time of Evaluation Date of Evaluation: 11/19/17 Time of Evaluation: 11:40 - Subjective Subjective: No acute distress. PAtient more alert today. No acute event overnight, tolerating PO diet, no changes in urination or stools, denies pain, SOB, palpitations. Objective - Vital Signs/Intake and Output Vital Signs (last 24 hours): Temp Pulse Resp BP Pulse Ox 97.7 F 62 18 135/48 L 98 11/19/17 11:56 11/19/17 11:56 11/19/17 11:56 11/19/17 11:56 11/19/17 11:56 - Medications Medications: Current Medications Acetaminophen (Tylenol 325mg Tab) 650 mg PO Q6 PRN PRN Reason: Headache Last Admin: 11/15/17 14:05 Dose: 650 mg Albuterol/Ipratropium (Duoneb 3 Mg/0.5 Mg (3 Ml) Ud) 3 ml INH RQ6 PRN PRN Reason: Shortness of Breath Last Admin: 11/18/17 12:15 Dose: 3 ml Alprazolam (Xanax) 0.25 mg PO DAILY PRN PRN Reason: Anxiety Stop: 11/23/17 09:01 Last Admin: 11/18/17 11:59 Dose: 0.25 mg Amlodipine Besylate (Norvasc) 5 mg PO DAILY [facility] Last Admin: 11/19/17 10:40 Dose: 5 mg Aspirin (Ecotrin) 81 mg PO DAILY [facility] Last Admin: 11/19/17 10:42 Dose: 81 mg Bisacodyl (Dulcolax) 5 mg PO DAILY PRN PRN Reason: Constipation Ferrous Sulfate (Feosol) 325 mg PO BID [facility] Last Admin: 11/19/17 10:42 Dose: 325 mg Hydroxyzine Pamoate (Vistaril) 25 mg PO Q12 PRN PRN Reason: Anxiety Sodium Chloride (Sodium Chloride 0.9%) 1,000 mls @ 100 mls/hr IV .Q10H [facility] Last Admin: 11/13/17 06:54 Dose: Not Given Insulin Human Lispro (Humalog) 0 units SC ACHS [facility] PRN Reason: Protocol Last Admin: 11/19/17 06:29 Dose: Not Given Lactulose (Enulose) 10 gm PO DAILY PRN PRN Reason: Constipation Losartan Potassium (Cozaar) 50 mg PO DAILY [facility] Last Admin: 11/19/17 10:42 Dose: 50 mg Memantine (Namenda) 10 mg PO Q12 [facility] Last Admin: 11/19/17 10:43 Dose: 10 mg Metoprolol Succinate (Toprol Xl) 50 mg PO BID [facility] Montelukast Sodium (Singulair) 10 mg PO HS [facility] Last Admin: 11/18/17 21:46 Dose: 10 mg Pantoprazole Sodium (Protonix Ec Tab) 40 mg PO HS [facility] Last Admin: 11/18/17 21:45 Dose: 40 mg Paroxetine HCl (Paxil) 20 mg PO DAILY [facility] Last Admin: 11/19/17 10:41 Dose: 20 mg Pravastatin Sodium (Pravachol) 20 mg PO [facility] Last Admin: 11/13/17 21:50 Dose: 20 mg - Labs Labs: 11/19/17 04:15 11/19/17 04:15 PT 12.7 Seconds (9.8-13.1) 11/12/17 18:34 INR 1.1 (0.9-1.2) 11/12/17 18:34 APTT 27.3 Seconds (25.6-37.1) 11/12/17 18:34 - Constitutional Appears: Non-toxic, No Acute Distress - Eye Exam Eye Exam: PERRL - ENT Exam ENT Exam: Mucous Membranes Moist - Respiratory Exam Respiratory Exam: Clear to Ausculation Bilateral, NORMAL BREATHING PATTERN. absent: Decreased Breath Sounds, Rales - Cardiovascular Exam Cardiovascular Exam: REGULAR RHYTHM, +S1, +S2. absent: Gallop - GI/Abdominal Exam GI & Abdominal Exam: Soft, Normal Bowel Sounds. absent: Guarding, Tenderness, Rebound - Extremities Exam Extremities Exam: Normal Capillary Refill. absent: Calf Tenderness, Pedal Edema , Tenderness - Neurological Exam Neurological Exam: Alert, Awake, Oriented x3 - Skin Skin Exam: Normal Color, Warm Assessment and Plan - Assessment and Plan (Free Text) Assessment: Mental status markedly improved Neuro consult appreciated Benzos DCed as per psych recs Started on Vistaryl q12h PRN for anxiety LFTs elevation improved Abd US results noted. (Perisplenic ascitis/GB wall distention) Start Lasix 20 mg daily GI consulted for further recs <Gaviria,Ariel L - Last Filed: 11/25/17 06:06> Objective - Vital Signs/Intake and Output Vital Signs (last 24 hours): Temp Pulse Resp BP Pulse Ox 97.5 F L 68 20 126/52 L 99 11/21/17 16:18 11/21/17 16:18 11/21/17 16:18 11/21/17 16:18 11/21/17 16:18 - Labs Labs: 11/19/17 04:15 11/19/17 04:15 PT 12.7 Seconds (9.8-13.1) 11/12/17 18:34 INR 1.1 (0.9-1.2) 11/12/17 18:34 APTT 27.3 Seconds (25.6-37.1) 11/12/17 18:34 Assessment and Plan (1) CVA (cerebral vascular accident) Status: Acute (2) Anxiety Status: Acute (3) Hypertension Status: Chronic (4) Pleural effusion Status: Chronic - Assessment and Plan (Free Text) Plan: I was present during evaluation and discussed with Dr Wagner re plans of care and mgt. Ariel Gaviria M.D.
[2017-11-19] MEDS: Albuterol-Ipratrop 3 mg / 0.5 (3 ml) UD INH PRN (13:05)
--- NOTE | 2017-11-19 14:32 | RAD ---
HISTORY: SOB COMPARISON: Chest radiograph dated 11/17/2017 FINDINGS: LUNGS: Pulmonary vascular congestion/ edema. Bibasilar atelectasis. PLEURA: Bilateral pleural effusions, grossly similar. No pneumothorax apparent. CARDIOVASCULAR: Unchanged. OSSEOUS STRUCTURES: Unchanged. VISUALIZED UPPER ABDOMEN: Normal. OTHER FINDINGS: None. IMPRESSION: Limited evaluation due to patient rotation. Grossly stable pulmonary vascular congestion/ edema and bilateral pleural effusions.
[2017-11-19] MEDS: Metoprolol Succinate 50 mg XL Tab PO SCH (16:36)
[2017-11-19] MEDS: Pantoprazole 40 mg EC Tab PO SCH (21:56)
[2017-11-20] MEDS: Insulin Lispro (humaLOG) 100 Units/ml Inj SC SCH ×4 (07:01→21:47)
[2017-11-20] MEDS: Metoprolol Succinate 50 mg XL Tab PO SCH ×2 (08:35→16:43)
--- NOTE | 2017-11-20 08:57 | CP.PCM.CON ---
<Brian Maldonado - Last Filed: 11/20/17 10:38> History of Present Illness - History of Present Illness History of Present Illness: PGY5 GI Fellow Consult Note Patient is an 86yo female with PMHx significant for dementia, prior episode of ischemic proctitis, diverticulosis, CAD, COPD, HTN who was brought to the hospital by family for slurred speech and concern for CVA. Patient suffers with dementia and thus history is limited to EMR and discussion with family memebers. On arrival CT head was unremarkable and patient has not been able to tolerate MRI since. Speech is back at baseline. Our service has been consulted to evaluate the patient for elevated LFTs. Patient was noted to have elevated LFTs in hepatocellular pattern on arrival. During her hospitalization she has been noted to have profound elevations in her blood pressure and thus has a working diagnosis of hypertensive emergency. Since arrival, her LFTs have normalized. She denies any abdominal pain, nausea, vomiting, weight loss, diarrhea. Patient does not have any history of tattoos IVDU and has had no blood transfusions per our records. Family deny any new medications, vitamins or herbal supplements used prior to arrival. PMHx: See HPI PSHx: Hysterectomy, kidney surgery, L hip & knee surgery, R thoracentesis () FHx: No significant family history noted Social: Denies tobacco, EtOH or illicit drug use history Endo: Colonoscopy - 06/2015 - diverticulosis, one large tubular adenoma, rectal tissue showing ischemic injury 12 system ROS limited given clinical condition but negative except where stated Past Patient History - Past Medical History & Family History Past Medical History?: Yes - Past Social History Smoking Status: Never Smoked - CARDIAC Hx Hypercholesterolemia: Yes Hx Hypertension: Yes - PULMONARY Hx Chronic Obstructive Pulmonary Disease (COPD): Yes Hx Pneumonia: Yes - NEUROLOGICAL Hx Alzheimer's Disease: No Hx Dementia: Yes Hx Migraine: No Hx Multiple Sclerosis: No Hx Parkinson's Disease: No Hx Seizures: No Hx Transient Ischemic Attacks (TIA): No - HEENT Hx HEENT Problems: No - RENAL Hx Chronic Kidney Disease: No Hx Kidney Stones: No - ENDOCRINE/METABOLIC Hx Hyperthyroidism: No Hx Hypothyroidism: No - HEMATOLOGICAL/ONCOLOGICAL Hx Anemia: Yes Hx Human Immunodeficiency Virus (HIV): No Hx Sickle Cell Disease: No - INTEGUMENTARY Hx Dermatological Problems: No - MUSCULOSKELETAL/RHEUMATOLOGICAL Hx Arthritis: Yes - GASTROINTESTINAL Hx Crohn's Disease: No Hx Diverticulitis: Yes Hx Gall Bladder Disease: No Hx Gastritis: No Hx Pancreatitis: No - GENITOURINARY/GYNECOLOGICAL Hx Sexually Transmitted Disorders: No - PSYCHIATRIC Hx Anxiety: No Hx Bipolar Disorder: No Hx Depression: Yes Hx Paranoia: No Hx Post Traumatic Stress Disorder: No Hx Schizophrenia: No Hx Substance Use: No - SURGICAL HISTORY Hx Appendectomy: No Hx Carotid Endarterectomy: No Hx Cholecystectomy: No Hx Coronary Artery Bypass Graft: No Hx Coronary Stent: No Hx Tonsillectomy: No - ANESTHESIA Hx Anesthesia: Yes Hx Anesthesia Reactions: No Hx Malignant Hyperthermia: No Meds Allergies/Adverse Reactions: Allergies Allergy/AdvReac Type Severity Reaction Status Date / Time No Known Allergies Allergy Verified 11/12/17 18:02 - Medications Medications: Current Medications Acetaminophen (Tylenol 325mg Tab) 650 mg PO Q6 PRN PRN Reason: Headache Last Admin: 11/15/17 14:05 Dose: 650 mg Albuterol/Ipratropium (Duoneb 3 Mg/0.5 Mg (3 Ml) Ud) 3 ml INH RQ6 PRN PRN Reason: Shortness of Breath Last Admin: 11/19/17 13:05 Dose: 3 ml Alprazolam (Xanax) 0.25 mg PO DAILY PRN PRN Reason: Anxiety Stop: 11/23/17 09:01 Last Admin: 11/18/17 11:59 Dose: 0.25 mg Amlodipine Besylate (Norvasc) 5 mg PO DAILY [facility] Last Admin: 11/20/17 08:36 Dose: 5 mg Aspirin (Ecotrin) 81 mg PO DAILY [facility] Last Admin: 11/20/17 08:35 Dose: 81 mg Bisacodyl (Dulcolax) 5 mg PO DAILY PRN PRN Reason: Constipation Ferrous Sulfate (Feosol) 325 mg PO BID [facility] Last Admin: 11/20/17 08:35 Dose: 325 mg Furosemide (Lasix) 20 mg PO DAILY [facility] Last Admin: 11/20/17 08:36 Dose: 20 mg Hydroxyzine Pamoate (Vistaril) 25 mg PO Q12 PRN PRN Reason: Anxiety Sodium Chloride (Sodium Chloride 0.9%) 1,000 mls @ 100 mls/hr IV .Q10H [facility] Last Admin: 11/13/17 06:54 Dose: Not Given Insulin Human Lispro (Humalog) 0 units SC ACHS [facility] PRN Reason: Protocol Last Admin: 11/20/17 07:01 Dose: Not Given Lactulose (Enulose) 10 gm PO DAILY PRN PRN Reason: Constipation Losartan Potassium (Cozaar) 50 mg PO DAILY [facility] Last Admin: 11/20/17 08:37 Dose: 50 mg Memantine (Namenda) 10 mg PO Q12 [facility] Last Admin: 11/20/17 08:36 Dose: 10 mg Metoprolol Succinate (Toprol Xl) 50 mg PO BID [facility] Last Admin: 11/20/17 08:35 Dose: 50 mg Montelukast Sodium (Singulair) [address] [facility] Last Admin: 11/19/17 21:56 Dose: 10 mg Pantoprazole Sodium (Protonix Ec Tab) [address] [facility] Last Admin: 11/19/17 21:56 Dose: 40 mg Paroxetine HCl (Paxil) 20 mg PO DAILY [facility] Last Admin: 11/20/17 08:36 Dose: 20 mg Pravastatin Sodium (Pravachol) [address] [facility] Last Admin: 11/13/17 21:50 Dose: 20 mg Physical Exam - Constitutional Appears: Non-toxic, No Acute Distress - Eye Exam Eye Exam: EOMI, PERRL - ENT Exam ENT Exam: Mucous Membranes Dry - Respiratory Exam Respiratory Exam: Rales. absent: Clear to Auscultation Bilateral, Rhonchi, Wheezes - Cardiovascular Exam Cardiovascular Exam: RRR, +S1, +S2 - GI/Abdominal Exam GI & Abdominal Exam: Normal Bowel Sounds, Soft. absent: Distended, Firm, Guarding, Organomegaly, Rigid, Tenderness - Extremities Exam Extremities exam: Negative for: normal inspection Additional comments: B/L LE edema - Neurological Exam Neurological exam: Altered - Psychiatric Exam Psychiatric exam: Anxious - Skin Skin Exam: Dry, Warm Results - Vital Signs Recent Vital Signs: Last Vital Signs Temp 97.6 F 11/20/17 08:00 Pulse 63 11/20/17 08:37 Resp 20 11/20/17 08:00 BP 147/73 11/20/17 08:37 Pulse Ox 100 11/20/17 08:00 - Labs Result Diagrams: 11/19/17 04:15 11/19/17 04:15 Labs: Laboratory Results - last 24 hr 03/04/0111/19/17 11/19/17 05:33 11:08 13:12 POC Glucose (mg/dL) 97 261 H IgG 865.6 11/19/17 11/19/17 11/20/17 16:21 21:27 05:47 POC Glucose (mg/dL) 79 133 H 128 H IgG Assessment & Plan - Assessment and Plan (Free Text) Assessment: Patient is an 86yo female with PMHx significant for dementia, prior episode of ischemic proctitis, diverticulosis, CAD, COPD, HTN who was brought to the hospital by family for slurred speech and concern for CVA. Our service has been consulted for abnormal LFTs -Hypertensive emergency, resolved -Suspect hypertensive encephalopathy, resolved -Abnormal LFTs - likely related to above, resolving -Diastolic CHF - EF 70% Plan: -LFTs slowly improving, ALT will take time to resolve completely and typically lags behind -U/S reviewed without any hepatic abnormalities or masses; no doppler performed to comment on HV/PV flow -Check autoimmune work up though less likely etiology - ALYSE, AMA, ASMA, IgG level -Hepatitis serologies negative -Avoid hepatotoxic medications -Control BP to avoid further injury -Suspect component of volume overload with Diastolic CHF - lower extremity edema and B/L effusions; possible component of congestive hepatopathy - Date & Time Date: 11/20/17 Time: 08:30 <Soraya Thompson - Last Filed: 11/20/17 15:49> Meds - Medications Medications: Current Medications Acetaminophen (Tylenol 325mg Tab) 650 mg PO Q6 PRN PRN Reason: Headache Last Admin: 11/15/17 14:05 Dose: 650 mg Albuterol/Ipratropium (Duoneb 3 Mg/0.5 Mg (3 Ml) Ud) 3 ml INH RQ6 PRN PRN Reason: Shortness of Breath Last Admin: 11/19/17 13:05 Dose: 3 ml Alprazolam (Xanax) 0.25 mg PO DAILY PRN PRN Reason: Anxiety Stop: 11/23/17 09:01 Last Admin: 11/18/17 11:59 Dose: 0.25 mg Amlodipine Besylate (Norvasc) 5 mg PO DAILY [facility] Last Admin: 11/20/17 08:36 Dose: 5 mg Aspirin (Ecotrin) 81 mg PO DAILY [facility] Last Admin: 11/20/17 08:35 Dose: 81 mg Bisacodyl (Dulcolax) 5 mg PO DAILY PRN PRN Reason: Constipation Ferrous Sulfate (Feosol) 325 mg PO BID [facility] Last Admin: 11/20/17 08:35 Dose: 325 mg Furosemide (Lasix) 20 mg PO DAILY [facility] Last Admin: 11/20/17 08:36 Dose: 20 mg Hydroxyzine Pamoate (Vistaril) 25 mg PO Q12 PRN PRN Reason: Anxiety Sodium Chloride (Sodium Chloride 0.9%) 1,000 mls @ 100 mls/hr IV .Q10H [facility] Last Admin: 11/13/17 06:54 Dose: Not Given Insulin Human Lispro (Humalog) 0 units SC ACHS [facility] PRN Reason: Protocol Last Admin: 11/20/17 12:55 Dose: Not Given Lactulose (Enulose) 10 gm PO DAILY PRN PRN Reason: Constipation Losartan Potassium (Cozaar) 50 mg PO DAILY [facility] Last Admin: 11/20/17 08:37 Dose: 50 mg Memantine (Namenda) 10 mg PO Q12 [facility] Last Admin: 11/20/17 08:36 Dose: 10 mg Metoprolol Succinate (Toprol Xl) 50 mg PO BID [facility] Last Admin: 11/20/17 08:35 Dose: 50 mg Montelukast Sodium (Singulair) [address] [facility] Last Admin: 11/19/17 21:56 Dose: 10 mg Pantoprazole Sodium (Protonix Ec Tab) [address] [facility] Last Admin: 11/19/17 21:56 Dose: 40 mg Paroxetine HCl (Paxil) 20 mg PO DAILY [facility] Last Admin: 11/20/17 08:36 Dose: 20 mg Pravastatin Sodium (Pravachol) [address] [facility] Last Admin: 11/13/17 21:50 Dose: 20 mg Results - Vital Signs Recent Vital Signs: Last Vital Signs Temp 98.5 F 11/20/17 13:00 Pulse 59 L 11/20/17 13:00 Resp 20 11/20/17 13:00 BP 132/88 11/20/17 13:00 Pulse Ox 100 11/20/17 13:00 - Labs Result Diagrams: 11/19/17 04:15 11/19/17 04:15 Labs: Laboratory Results - last 24 hr 11/13/17 11/19/17 11/19/17 10:45 05:33 11:08 POC Glucose (mg/dL) 97 261 H IgG Anti-Smooth Muscle Ab Prothrombin Mut Interp see note H Prothrombin Gene Mutate see note H Prothromb Gene Review see note 11/19/17 11/19/17 11/19/17 13:12 13:12 16:21 POC Glucose (mg/dL) 79 IgG 865.6 Anti-Smooth Muscle Ab Negative Prothrombin Mut Interp Prothrombin Gene Mutate Prothromb Gene Review 11/19/17 11/20/17 11/20/17 21:27 05:47 11:40 POC Glucose (mg/dL) 133 H 128 H 131 H IgG Anti-Smooth Muscle Ab Prothrombin Mut Interp Prothrombin Gene Mutate Prothromb Gene Review Attending/Attestation - Attestation I have personally seen and examined this patient.: Yes I have fully participated in the care of the patient.: Yes I have reviewed all pertinent clinical information: Yes Notes (Text): 11/20/17 15:47 Patient seen with GI fellow. This is a 86 yr old female with PMHx significant for dementia, prior episode of ischemic proctitis, diverticulosis, CAD, COPD, HTN who was brought to the hospital by family for slurred speech and concern for CVA. Our service has been consulted for abnormal LFTs which are resolving. Sonogram with no abnormalities or cholelithiasis. Check autoimmune work up with Hepatitis serologies negative. Avoid hepatotoxic medications. Suspect component of volume overload with Diastolic CHF - lower extremity edema and B/L effusions ; possible component of congestive hepatopathy. Thank you for letting us participate in the care of your patient. No further GI work up necessary
--- NOTE | 2017-11-20 12:53 | PQF GENQUE ---
Dr. Gaviria, Please specify the type of encephalopathy in your progress notes: if in agreement with Consultants Alcoholic Anoxic Due to medications or drugs (please indicate causative agent) Hepatic Hypertensive Metabolic Septic Toxic Wernicke's Other cause (please specify) OR: Disagree OR: Other explanation of clinical findings 11/13 : Neuro consult : The patient has significant metabolic derangements and may have toxic-metabolic encephalopathy contributing to her mental status change and dysarthria 11/20 GI consult: Our service has been consulted for abnormal LFTs -Hypertensive emergency, resolved -Suspect hypertensive encephalopathy, resolved This form is a permanent part of the medical record Clarification of your documentation is requested to better reflect the severity of illness and intensity of treatment of your patient. Indicators present [] Specify: [] [] Specify: [] [] Specify: [] [] Specify: [] Location in the medical record that reflects the above clinical findings: [] Treatment Provided: [] PHYSICIAN'S RESPONSE Based on your medical judgment of the clinical indicators outlined above please clarify the following: [] Practitioner response [] If unable to determine, please check the box, sign and date. Present On Admission (POA) Indicator: [] Present at the time of admission [] Not present at the time of admission [] Clinically Undetermined In responding to this query, please exercise your independent professional judgment. The fact that a question is asked does not imply that any particular answer is desired or expected. Thank you for your clarification on this documentation. If you have any questions please call. * Thank you, Ciara Monroe RN ext. #[phone] MTDD
--- NOTE | 2017-11-20 13:01 | CP.PCM.PN ---
<Feliberto Wagner - Last Filed: 11/20/17 13:46> Subjective - Date & Time of Evaluation Date of Evaluation: 11/20/17 Time of Evaluation: 10:55 - Subjective Subjective: Stable, had episode of SOB Yesterday afternoon and CXR was ordered and well as stat dose of Lasix. Resolved After. Doing much better in general. Mental status improved. Objective - Vital Signs/Intake and Output Vital Signs (last 24 hours): Temp Pulse Resp BP Pulse Ox 97.6 F 55 L 20 147/73 100 11/20/17 08:00 11/20/17 09:00 11/20/17 08:00 11/20/17 08:37 11/20/17 08:00 - Medications Medications: Current Medications Acetaminophen (Tylenol 325mg Tab) 650 mg PO Q6 PRN PRN Reason: Headache Last Admin: 11/15/17 14:05 Dose: 650 mg Albuterol/Ipratropium (Duoneb 3 Mg/0.5 Mg (3 Ml) Ud) 3 ml INH RQ6 PRN PRN Reason: Shortness of Breath Last Admin: 11/19/17 13:05 Dose: 3 ml Alprazolam (Xanax) 0.25 mg PO DAILY PRN PRN Reason: Anxiety Stop: 11/23/17 09:01 Last Admin: 11/18/17 11:59 Dose: 0.25 mg Amlodipine Besylate (Norvasc) 5 mg PO DAILY [facility] Last Admin: 11/20/17 08:36 Dose: 5 mg Aspirin (Ecotrin) 81 mg PO DAILY [facility] Last Admin: 11/20/17 08:35 Dose: 81 mg Bisacodyl (Dulcolax) 5 mg PO DAILY PRN PRN Reason: Constipation Ferrous Sulfate (Feosol) 325 mg PO BID [facility] Last Admin: 11/20/17 08:35 Dose: 325 mg Furosemide (Lasix) 20 mg PO DAILY [facility] Last Admin: 11/20/17 08:36 Dose: 20 mg Hydroxyzine Pamoate (Vistaril) 25 mg PO Q12 PRN PRN Reason: Anxiety Sodium Chloride (Sodium Chloride 0.9%) 1,000 mls @ 100 mls/hr IV .Q10H [facility] Last Admin: 11/13/17 06:54 Dose: Not Given Insulin Human Lispro (Humalog) 0 units SC ACHS [facility] PRN Reason: Protocol Last Admin: 11/20/17 12:55 Dose: Not Given Lactulose (Enulose) 10 gm PO DAILY PRN PRN Reason: Constipation Losartan Potassium (Cozaar) 50 mg PO DAILY [facility] Last Admin: 11/20/17 08:37 Dose: 50 mg Memantine (Namenda) 10 mg PO Q12 [facility] Last Admin: 11/20/17 08:36 Dose: 10 mg Metoprolol Succinate (Toprol Xl) 50 mg PO BID [facility] Last Admin: 11/20/17 08:35 Dose: 50 mg Montelukast Sodium (Singulair) 10 mg PO HS [facility] Last Admin: 11/19/17 21:56 Dose: 10 mg Pantoprazole Sodium (Protonix Ec Tab) 40 mg PO HS [facility] Last Admin: 11/19/17 21:56 Dose: 40 mg Paroxetine HCl (Paxil) 20 mg PO DAILY [facility] Last Admin: 11/20/17 08:36 Dose: 20 mg Pravastatin Sodium (Pravachol) 20 mg PO [facility] Last Admin: 11/13/17 21:50 Dose: 20 mg - Labs Labs: 11/19/17 04:15 11/19/17 04:15 PT 12.7 Seconds (9.8-13.1) 11/12/17 18:34 INR 1.1 (0.9-1.2) 11/12/17 18:34 APTT 27.3 Seconds (25.6-37.1) 11/12/17 18:34 - Constitutional Appears: Non-toxic, Chronically Ill - Eye Exam Eye Exam: PERRL - ENT Exam ENT Exam: Mucous Membranes Moist - Respiratory Exam Respiratory Exam: NORMAL BREATHING PATTERN. absent: Decreased Breath Sounds, Prolonged Expiratory Phase, Respiratory Distress - Cardiovascular Exam Cardiovascular Exam: +S1, +S2. absent: Gallop - GI/Abdominal Exam GI & Abdominal Exam: Soft, Normal Bowel Sounds. absent: Tenderness - Neurological Exam Neurological Exam: Alert, Awake, Oriented x3 Additional comments: Confused at times - Psychiatric Exam Psychiatric exam: Normal Affect, Normal Mood - Skin Skin Exam: Normal Color, Warm Assessment and Plan - Assessment and Plan (Free Text) Assessment: Dementia. mental status improved. Neuro and Psych consult appreciated CHF most likely diastolic C/W Lasix 20 daily Unknown if encephalopathy vs delirium HTN improved c/w current meds. Cardio consult appreciated LFT elevation resolved. GI consult appreciated Anticipated DC tomorrow. <Ariel Gaviria - Last Filed: 11/25/17 06:07> Objective - Vital Signs/Intake and Output Vital Signs (last 24 hours): Temp Pulse Resp BP Pulse Ox 97.5 F L 68 20 126/52 L 99 11/21/17 16:18 11/21/17 16:18 11/21/17 16:18 11/21/17 16:18 11/21/17 16:18 - Labs Labs: 11/19/17 04:15 11/19/17 04:15 PT 12.7 Seconds (9.8-13.1) 11/12/17 18:34 INR 1.1 (0.9-1.2) 11/12/17 18:34 APTT 27.3 Seconds (25.6-37.1) 11/12/17 18:34 Assessment and Plan (1) CVA (cerebral vascular accident) Status: Acute (2) Anxiety Status: Acute (3) Hypertension Status: Chronic (4) Pleural effusion Status: Chronic - Assessment and Plan (Free Text) Plan: I was present during evaluation and discussed with Dr Wagner re plans of care and mgt. Ariel Gaviria M.D.
--- NOTE | 2017-11-20 13:07 | PQF GENQUE ---
, 2 queries: Please specify the type and acuity of heart failure in your progress notes: if in agreement with the dx. and if known 1. 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 ACUITY: Acute Chronic Acute on chronic Other (please specify) OR: Clinically unable to determine OR Unknown OR: Disagree 11/13 CXR: : Small right pleural effusion. No infiltrate. 11/19 CXR: : Limited evaluation due to patient rotation. Grossly stable pulmonary vascular congestion/ edema and bilateral pleural effusions. ER MD note: PMH includes: CHF 11/13 Cardiology consult:will assist with blood pressure management. Normal LV function with normal valvular function 11/20 GI consult: Suspect component of volume overload with Diastolic CHF - lower extremity edema and B/L effusions; possible component of congestive hepatopathy 11/19 Lasix IV stat ->PO daily This form is a permanent part of the medical record Clarification of your documentation is requested to better reflect the severity of illness and intensity of treatment of your patient. Indicators present [] Specify: [] [] Specify: [] [] Specify: [] [] Specify: [] Location in the medical record that reflects the above clinical findings: [] Treatment Provided: [] PHYSICIAN'S RESPONSE Based on your medical judgment of the clinical indicators outlined above please clarify the following: [] Practitioner response [] If unable to determine, please check the box, sign and date. Present On Admission (POA) Indicator: [] Present at the time of admission [] Not present at the time of admission [] Clinically Undetermined In responding to this query, please exercise your independent professional judgment. The fact that a question is asked does not imply that any particular answer is desired or expected. Thank you for your clarification on this documentation. If you have any questions please call. * Thank you, Ciara Monroe RN ext. #[phone] MTDD
[2017-11-20] MEDS: Albuterol-Ipratrop 3 mg / 0.5 (3 ml) UD INH PRN (19:09)
[2017-11-20] MEDS: Pantoprazole 40 mg EC Tab PO SCH (21:48)
[2017-11-20 23:56] VITALS: RESP 20
[2017-11-21] MEDS: Insulin Lispro (humaLOG) 100 Units/ml Inj SC SCH ×3 (07:30→17:02)
[2017-11-21] MEDS ORDERED: Ipratropium 0.02% Inhal Soln (0.5 mg/2.5 ml) UD IH PRN (08:04)
[2017-11-21] MEDS ORDERED: Albuterol 0.083% Inhal Sol (2.5 mg/3 mL) UD INH PRN (08:34)
--- NOTE | 2017-11-21 08:51 | CP.PCM.CON ---
History of Present Illness - History of Present Illness History of Present Illness: Asked to evaluate this 86 year old Moh[place] speaking female who is well known to me from prior admissions as well as the outpatient setting. She was admitted with neurological symptoms this time and acute CVA has apparently been ruled out. She has also clinically recovered from these initial symptoms. There has been a chronic pleural effusion for the past one year which has undergone thoracentesis as well as flexible bronchoscopy. Pleural fluid analysis was transudative with negative cultures and cytology. Bronchoscopy was unremarkable as well with patent airways and negative cytologies also. Her chest x-rays and CT scans have been stable showing effusions and a calcified nodule in the right lung base (present for many years on CT). There was a consideration for VATS with biopsy and pleurodesis on a previous admission, but this was declined by her POA at that time. She does have underlying long standing bronchial asthma with likely overlap of COPD despite being a never smoker. A chest x-ray on this admission has shown a similar pleural effusion as before and there have been episodes of acute dyspnea during this hospitalization. Presently she is lying in bed in a semi-reclined position crocheting comfortably. She denies any shortness of breath or chest discomfort at this time. Her SpO2 on 2 LPM nasal canula is 93-94% with a heart rate of around 80 BPM and regular rhythm. A chest x-ray done the day before yesterday reveals bilateral pleural effusions. An echocardiogram from 10/25/17 reported a RV systolic pressure of 47mmHg suggesting pulmonary hypertension w/o RV or RA enlargement. There was mild to moderate mitral regurge and no Aortic stenosis seen. The last CTA of the lungs was done years ago, recent scans have been w/o contrast because of renal function limitations. There have been a number of venous duplex scans of the LEs over the years because of swelling of the LLE, but no DVT has ever been seen. Past Patient History - Past Medical History & Family History Past Medical History?: Yes - Past Social History Smoking Status: Never Smoked Chewing Tobacco Use: No Cigar Use: No Alcohol: None Drugs: Denies - CARDIAC Hx Hypercholesterolemia: Yes Hx Hypertension: Yes Hx Peripheral Edema: Yes - PULMONARY Hx Asthma: Yes Hx Bronchitis: Yes Hx Chronic Obstructive Pulmonary Disease (COPD): Yes Hx Pneumonia: Yes Other/Comment: pleural effusions bilaterally - NEUROLOGICAL Hx Dementia: Yes - HEENT Hx HEENT Problems: No - RENAL Hx Chronic Kidney Disease: Yes (stage 2) - ENDOCRINE/METABOLIC Hx Endocrine Disorders: No - HEMATOLOGICAL/ONCOLOGICAL Hx Anemia: Yes Hx Human Immunodeficiency Virus (HIV): No - INTEGUMENTARY Hx Dermatological Problems: No - MUSCULOSKELETAL/RHEUMATOLOGICAL Hx Arthritis: Yes Hx Osteoarthritis: Yes Hx Osteoporosis: Yes - GASTROINTESTINAL Hx Diverticulitis: Yes - GENITOURINARY/GYNECOLOGICAL Hx Genitourinary Disorders: No - PSYCHIATRIC Hx Depression: Yes - SURGICAL HISTORY Hx Hysterectomy: Yes Hx Joint Replacement: Yes (left hip) Hx Orthopedic Surgery: Yes (left knee) - ANESTHESIA Hx Anesthesia: Yes Hx Anesthesia Reactions: No Hx Malignant Hyperthermia: No Meds Allergies/Adverse Reactions: Allergies Allergy/AdvReac Type Severity Reaction Status Date / Time No Known Allergies Allergy Verified 11/12/17 18:02 - Medications Medications: Current Medications Acetaminophen (Tylenol 325mg Tab) 650 mg PO Q6 PRN PRN Reason: Headache Last Admin: 11/15/17 14:05 Dose: 650 mg Albuterol Sulfate (Albuterol 0.083% Inhal [place] (2.5 Mg/3 Ml) Ud) 2.5 mg INH RQ4 PRN PRN Reason: Shortness of Breath Alprazolam (Xanax) 0.25 mg PO DAILY PRN PRN Reason: Anxiety Stop: 11/23/17 09:01 Last Admin: 11/18/17 11:59 Dose: 0.25 mg Amlodipine Besylate (Norvasc) 5 mg PO DAILY [facility] Last Admin: 11/20/17 08:36 Dose: 5 mg Aspirin (Ecotrin) 81 mg PO DAILY [facility] Last Admin: 11/20/17 08:35 Dose: 81 mg Bisacodyl (Dulcolax) 5 mg PO DAILY PRN PRN Reason: Constipation Ferrous Sulfate (Feosol) 325 mg PO BID [facility] Last Admin: 11/20/17 16:43 Dose: 325 mg Furosemide (Lasix) 20 mg IVP DAILY [facility] Hydroxyzine Pamoate (Vistaril) 25 mg PO Q12 PRN PRN Reason: Anxiety Last Admin: 11/20/17 21:48 Dose: 25 mg Insulin Human Lispro (Humalog) 0 units SC ACHS [facility] PRN Reason: Protocol Last Admin: 11/20/17 21:47 Dose: Not Given Ipratropium [place] (Atrovent) 0.5 mg IH RQID [facility] Lactulose (Enulose) 10 gm PO DAILY PRN PRN Reason: Constipation Losartan Potassium (Cozaar) 50 mg PO DAILY [facility] Last Admin: 11/20/17 08:37 Dose: 50 mg Memantine (Namenda) 10 mg PO Q12 [facility] Last Admin: 11/20/17 21:47 Dose: 10 mg Metoprolol Succinate (Toprol Xl) 50 mg PO BID [facility] Last Admin: 11/20/17 16:43 Dose: 50 mg Pantoprazole Sodium (Protonix Ec Tab) 40 mg PO HS [facility] Last Admin: 11/20/17 21:48 Dose: 40 mg Paroxetine HCl (Paxil) 20 mg PO DAILY [facility] Last Admin: 11/20/17 08:36 Dose: 20 mg Pravastatin Sodium (Pravachol) 20 mg PO HS [facility] Last Admin: 11/13/17 21:50 Dose: 20 mg Physical Exam - Additional Findings Additional findings: Lying in bed, comfortable, cooperative with exam, follows simple commands. Pharynx is pink and moist, no exudate. Conjunctivae are pink, no scleral icterus. Nares are patent bilaterally, no bleeding. No dullness on percussion of the anterior chest wall. Breath sounds are equally present , diminished anteriorly. Posteriorly breath sounds are absent in the bases, few medium rales in the LLs. No audible wheezing or bronchial breath sounds. Heart sounds are distant, rhythm is regular. Abdomen is soft and non-tender with good BS. No CVA tenderness. + dependant edema LLE, trace RLE. No calf tenderness, no Becky's sign. DP/PT pulses are decreased, but palpable bilaterally. No cyanosis. Results - Vital Signs Recent Vital Signs: Last Vital Signs Temp 98.1 F 11/21/17 08:15 Pulse 65 11/21/17 08:15 Resp 20 11/21/17 08:15 BP 150/53 L 11/21/17 08:15 Pulse Ox 99 11/21/17 08:15 - Labs Result Diagrams: 11/19/17 04:15 11/19/17 04:15 Labs: Laboratory Results - last 24 hr 11/13/17 11/19/17 11/20/17 10:45 13:12 11:40 POC Glucose (mg/dL) 131 H Anti-Smooth Muscle Ab Negative Prothrombin Mut Interp see note H Prothrombin Gene Mutate see note H Prothromb Gene Review see note 11/20/17 11/20/17 11/21/17 15:44 21:37 05:34 POC Glucose (mg/dL) 165 H 122 H 101 Anti-Smooth Muscle Ab Prothrombin Mut Interp Prothrombin Gene Mutate Prothromb Gene Review Assessment & Plan (1) COPD (chronic obstructive pulmonary disease) Status: Chronic Priority: High (2) Chronic asthma Status: Chronic Priority: High (3) Demand ischemia of myocardium Status: Chronic Priority: High (4) Dementia Status: Chronic Priority: High (5) Pleural effusion Status: Chronic Priority: High - Assessment and Plan (Free Text) Plan: Non-contrast CT chest to evaluate amount of pleural effusions. May need thoracentesis if effusion is moderate. Unfortunately not a candidate for CTA of the lungs. Will consider VQ scan of the lungs to check for chronic PEs. Still feel there is more cardiac disease than seen on TTE. - Date & Time Date: 11/21/17 Time: 09:38
[2017-11-21] MEDS: Metoprolol Succinate 50 mg XL Tab PO SCH ×2 (09:00→17:04)
[2017-11-21] MEDS ORDERED: Albuterol-Ipratrop 3 mg / 0.5 (3 ml) UD ONE (09:30)
[2017-11-21] MEDS ORDERED: Albuterol-Ipratrop 3 mg / 0.5 (3 ml) UD INH STA (09:43)
--- NOTE | 2017-11-21 09:51 | PQF GENQUE ---
Dr. Gaviria, CHF most likely diastolic is documented in the Medical Record. Please specify the acuity of this condition with terms such as: Acute Chronic Acute and chronic Acute on chronic Other (please specify in the medical record) Clinically unable to further specify Unknown 11/13; CXR: Impression: Small right pleural effusion. No infiltrate. 11/19 CXR: Limited evaluation due to patient rotation. Grossly stable pulmonary vascular congestion/ edema and bilateral pleural effusions. ER note : PMH includes. CHF 11/20: GI consult: Diastolic CHF - EF 70% ---Suspect component of volume overload with Diastolic CHF - lower extremity edema and B/L effusions; possible component of congestive hepatopathy 3.8 Resident note: diagnoses include: CHF most likely diastolic C/W Lasix 20 daily 11/19 Lasix 20 mg IV stat-> PO daily This form is a permanent part of the medical record Clarification of your documentation is requested to better reflect the severity of illness and intensity of treatment of your patient. Indicators present [] Specify: [] [] Specify: [] [] Specify: [] [] Specify: [] Location in the medical record that reflects the above clinical findings: [] Treatment Provided: [] PHYSICIAN'S RESPONSE Based on your medical judgment of the clinical indicators outlined above please clarify the following: [] Practitioner response [] If unable to determine, please check the box, sign and date. Present On Admission (POA) Indicator: [] Present at the time of admission [] Not present at the time of admission [] Clinically Undetermined In responding to this query, please exercise your independent professional judgment. The fact that a question is asked does not imply that any particular answer is desired or expected. Thank you for your clarification on this documentation. If you have any questions please call. * Thank you, Ciara Monroe RN ext. #[phone] MTDD
--- NOTE | 2017-11-21 09:56 | PCM.RRT ---
STRUCTURAL ANALYSIS ENGINEER Nurse Assessment - Situation Location: CT scan STRUCTURAL ANALYSIS ENGINEER Reason for Call: O2 Saturation below 90% STRUCTURAL ANALYSIS ENGINEER Called By: RN - IV IV Inserted during STRUCTURAL ANALYSIS ENGINEER?: No - Respiratory Received Nebulizer Treatments: No Was the Patient Ventilated with Bag/Mask 100% O2?: No Secretions Suctioned?: No Was the Patient Intubated?: No Was the Patient Placed on a Ventilator?: No - Diagnostic Test Ordered EKG: No Chest X-Ray: No CT Scan: No CPR started during STRUCTURAL ANALYSIS ENGINEER?: No - Recommendations STRUCTURAL ANALYSIS ENGINEER Level of Care Recommendations: return to 410-2 I.Reason for STRUCTURAL ANALYSIS ENGINEER - A) Acute Change in Patient: Subjective: 86 yo F with PMH dementia, HTN, current pleural effusion had STRUCTURAL ANALYSIS ENGINEER called due to shortness of breath and desaturation to below 90% while attempting to undergo CT scan. Pt was brought down from telemetry unit for CT scan; when laid flat became orthopnic and hypoxic at low 80s. BP: 159/70 mm Hg, RR 18, HR 67, O2 sat 80s Pt was sat up, high flow O2 was increased to 4L, and pt's saturation increased to 96%. Duoneb treatment initiated. She maintained mentation during the STRUCTURAL ANALYSIS ENGINEER. Patient remained stable, vital signs remained stable, and at the end of the STRUCTURAL ANALYSIS ENGINEER pt was saturating at 100%. A: 86 yo F with dementia, HTN, STRUCTURAL ANALYSIS ENGINEER called for desaturation below 90%. Saturation improved too 100% with measures taken during STRUCTURAL ANALYSIS ENGINEER as above. Orthopnea possibly due to pt having pleural effusions. P: CT scan attempt aborted; pt will be returned to 410-2. Resident on attending MD's service also present at STRUCTURAL ANALYSIS ENGINEER and aware. Case discussed w/ Dr. Grubbs and Dr. Trujillo, who were both present at STRUCTURAL ANALYSIS ENGINEER.
[2017-11-21] MEDS: Ipratropium 0.02% Inhal Soln (0.5 mg/2.5 ml) UD IH SCH ×2 (11:37→15:19)
--- NOTE | 2017-11-21 13:36 | CP.PCM.DIS ---
<Feliberto Wagner - Last Filed: 11/21/17 13:44> Provider - Provider Date of Admission: 11/12/17 22:33 Attending physician: Ariel Gaviria MD Primary care physician: Dr Ames Consults: Pulmonology Neurology Cardiology Psychiatry Time Spent in preparation of Discharge (in minutes): 35 Diagnosis - Discharge Diagnosis (1) CKD (chronic kidney disease) stage 3, GFR 30-59 ml/min Status: Chronic (2) Hyperkalemia Status: Resolved (3) Diastolic CHF Status: Chronic Priority: High (4) Hypertension Status: Chronic (5) Pleural effusion Status: Chronic Priority: High (6) Altered mental status Status: Acute Hospital Course - Lab Results Lab Results: Most Recent Lab Values WBC 8.6 K/uL (4.8-10.8) 11/19/17 04:15 RBC 3.65 Mil/uL (3.80-5.20) L 11/19/17 04:15 Hgb 9.7 g/dL (12.0-16.0) L 11/19/17 04:15 Hct 30.5 % (34.0-47.0) L 11/19/17 04:15 MCV 83.7 fl (81.0-99.0) 11/19/17 04:15 MCH 26.4 pg (27.0-31.0) L 11/19/17 04:15 MCHC 31.6 g/dL (33.0-37.0) L 11/19/17 04:15 RDW 19.1 % (11.5-14.5) H 11/19/17 04:15 Plt Count 171 K/uL (130-400) 11/19/17 04:15 MPV 8.6 fl (7.2-11.7) 11/14/17 05:50 Neut % (Auto) 88.5 % (50.0-75.0) H 11/14/17 05:50 Lymph % (Auto) 5.4 % (20.0-40.0) L 11/14/17 05:50 [place] % (Auto) 5.8 % (0.0-10.0) 11/14/17 05:50 Eos % (Auto) 0.0 % (0.0-4.0) 11/14/17 05:50 Baso % (Auto) 0.3 % (0.0-2.0) 11/14/17 05:50 Neut # (Auto) 8.2 K/uL (1.8-7.0) H 11/14/17 05:50 Lymph # (Auto) 0.5 K/uL (1.0-4.3) L 11/14/17 05:50 [place] # (Auto) 0.5 K/uL (0.0-0.8) 11/14/17 05:50 Eos # (Auto) 0.0 K/uL (0.0-0.7) 11/14/17 05:50 Baso # (Auto) 0.0 K/uL (0.0-0.2) 11/14/17 05:50 Neutrophils % (Manual) 88 % (42-75) H 11/12/17 18:34 Lymphocytes % (Manual) 5 % (20-50) L 11/12/17 18:34 Monocytes % (Manual) 6 % (0-10) 11/12/17 18:34 Basophils % (Manual) 1 % (0-2) 11/12/17 18:34 Toxic Granulation Present 11/12/17 18:34 Platelet Estimate Normal (NORMAL) 11/12/17 18:34 Hypochromasia (manual) Moderate 11/12/17 18:34 Poikilocytosis (manual Slight 11/12/17 18:34 Anisocytosis (manual) Slight 11/12/17 18:34 Target Cells Slight 11/12/17 18:34 Tear Drop Cells Slight 11/12/17 18:34 Ovalocytes Slight 11/12/17 18:34 Stomatocytes Slight 11/12/17 18:34 Rouleaux Slight 11/12/17 18:34 ESR 29 mm/hr (0-30) 11/13/17 10:45 PT 12.7 Seconds (9.8-13.1) 11/12/17 18:34 INR 1.1 (0.9-1.2) 11/12/17 18:34 APTT 27.3 Seconds (25.6-37.1) 11/12/17 18:34 Lupus Anticoagulant see note 11/13/17 10:45 LA PTT Screen 35 sec (<=40) 11/13/17 10:45 dRVVT Mixing Study 38 sec (<=45) 11/13/17 10:45 dRVVT Mix Interpret Not indicated 11/13/17 10:45 Sodium 144 mmol/l (132-148) 11/19/17 04:15 Potassium 4.8 MMOL/L (3.6-5.0) 11/19/17 04:15 Chloride 95 mmol/L (98-107) L 11/19/17 04:15 Carbon Dioxide 39 mmol/L (22-30) H 11/19/17 04:15 Anion Gap 15 (10-20) 11/19/17 04:15 BUN 37 mg/dl (7-17) H 11/19/17 04:15 Creatinine 1.1 mg/dl (0.7-1.2) 11/19/17 04:15 Est GFR ( Amer) 57 11/19/17 04:15 Est GFR (Non-Af Amer) 47 11/19/17 04:15 POC Glucose (mg/dL) 128 mg/dL (65-110) H 11/21/17 11:58 Random Glucose 114 mg/dL (65-105) H 11/19/17 04:15 Hemoglobin A1c 5.6 % (4.2-6.5) 11/12/17 18:36 Calcium 8.9 mg/dL (8.4-10.2) 11/19/17 04:15 Iron 38 ug/dL (37-170) 11/13/17 14:23 TIBC 259 ug/dL (250-450) 11/13/17 14:23 % Saturation 15 % (20-55) L 11/13/17 14:23 Ferritin 215.0 ng/Ml (11.1-264.0) 11/13/17 14:23 Total Bilirubin 0.4 mg/dl (0.2-1.3) 11/19/17 04:15 Direct Bilirubin 0.4 mg/ml (0.0-0.4) 11/14/17 10:52 GGT 242 U/L (8-78) H 11/13/17 14:23 AST 30 U/L (14-36) 11/19/17 04:15 ALT 65 U/L (9-52) H D 11/19/17 04:15 Alkaline Phosphatase 118 U/L (38-126) 11/19/17 04:15 Ammonia < 9 umo/L (11-51) L 11/13/17 14:23 Troponin I 0.0520 ng/mL (0.00-0.120) 11/12/17 18:34 C-React Prot High Sens 10.02 mg/L (1.00-3.00) H 11/13/17 10:45 Total Protein 6.2 G/DL (6.3-8.2) L 11/19/17 04:15 Albumin 3.3 g/dL (3.5-5.0) L 11/19/17 04:15 Globulin 2.9 gm/dL (2.2-3.9) 11/19/17 04:15 Albumin/Globulin Ratio 1.1 (1.0-2.1) 11/19/17 04:15 Triglycerides 65 mg/DL (0-149) D 11/12/17 18:34 Cholesterol 126 mg/dL (0-199) 11/12/17 18:34 LDL Cholesterol Direct 48 mg/dL (0-129) 11/12/17 18:34 HDL Cholesterol 43 MG/DL (30-70) 11/12/17 18:34 Vitamin B12 893 pg/mL (239-931) 11/13/17 10:45 25-OH Vitamin D Total 62.4 NG/ML (30.0-100.0) 11/13/17 10:45 TSH 3rd Generation 1.86 mIU/ML (0.46-4.68) 11/13/17 10:45 IgG 865.6 mg/dL (700.0-1600.0) 11/19/17 13:12 Anti-Smooth Muscle Ab Negative (Negative) 11/19/17 13:12 Hepatitis A IgM Ab Negative (NEGATIVE) 11/13/17 14:23 Hep Bs Antigen Negative (NEGATIVE) 11/13/17 14:23 Hepatitis C Antibody Negative (NEGATIVE) 11/13/17 14:23 Prothrombin Mut Interp see note H 11/13/17 10:45 Prothrombin Gene Mutate see note H 11/13/17 10:45 Prothromb Gene Review see note 11/13/17 10:45 Blood Type O POSITIVE 11/12/17 18:34 Antibody Screen Negative 11/12/17 18:34 BBK History Checked Patient has bt 11/12/17 18:34 - Hospital Course Hospital Course: 86 year old female with previous medical history of dementia, HTN, HLD, OA admitted to hosp after new onset slurred speech. She was found to be hypertensive and hyperkalemic. Patient was admitted to telemetry unit after CT head showed no ischemic or hemorrhagic changes. Patient was treated with antihypertensives and kayexalate. Patient was evaluated by Neurology, Cardiology and Psychiatry General condition slowly as well as vital signs. Patient's previous Hx of diastolic CHF and B/L pleural effusions, CXR showed no significant changes from previous studies. Patient was unable to tolerate MRI of the head. CTA head and neck didnt show acute pathology so CVA was unlikely. Psychiatry recs DCing Benzos and start patient on Vistoril PRN for anxiety. Patient was also evaluated by GI for elevated LFt on admission and perisplenic ascitis. Patient developed occasional episodes of SOB while in the hosp that could be related to anxiety. Last episode today during Chest CT for better eval of PE. Patient could not tolerated. Lasix dose increased and patient is accepted today for further management and deconditioning in [facility] Discharge Exam - Head Exam Head Exam: NORMAL INSPECTION - Eye Exam Eye Exam: PERRL - ENT Exam ENT Exam: Mucous Membranes Moist - Respiratory Exam Respiratory Exam: absent: Decreased Breath Sounds, Prolonged Expiratory Phase, Rales, Respiratory Distress - Cardiovascular Exam Cardiovascular Exam: REGULAR RHYTHM, +S1, +S2. absent: Gallop - GI/Abdominal Exam GI & Abdominal Exam: Normal Bowel Sounds, Unremarkable. absent: Distended, Rebound - Neurological Exam Neurological exam: Alert, Altered (Slightly dysarthric, memory loss. Confused at times) - Psychiatric Exam Psychiatric exam: Normal Affect - Skin Skin Exam: Normal Color, Warm Discharge Plan - Follow Up Plan Condition: STABLE Disposition: TRANSF TO SNF Additional Instructions: pt. cleared for discharge to TCU today by Dr.Kozel Rody patient"s carlton Arellano updated on plan of care/ progress pt. for TCU today and the [facility] was present during evaluation and discussed with Dr Wagner re discharge plans. Ariel Gaviria M.d. Referrals: Ariel Gaviria MD [Staff Provider] - Tahir Gamboa MD [Staff Provider] - Jose Gilbert MD [Staff Provider] - <Ariel Gaviria - Last Filed: 11/25/17 06:09> Provider - Provider Date of Admission: 11/12/17 22:33 Attending physician: Ariel Gaviria MD Diagnosis - Discharge Diagnosis (1) CVA (cerebral vascular accident) Status: Acute (2) Anxiety Status: Acute (3) Hypertension Status: Chronic (4) Pleural effusion Status: Chronic Priority: High Hospital Course - Lab Results Lab Results: Most Recent Lab Values WBC 8.6 K/uL (4.8-10.8) 11/19/17 04:15 RBC 3.65 Mil/uL (3.80-5.20) L 11/19/17 04:15 Hgb 9.7 g/dL (12.0-16.0) L 11/19/17 04:15 Hct 30.5 % (34.0-47.0) L 11/19/17 04:15 MCV 83.7 fl (81.0-99.0) 11/19/17 04:15 MCH 26.4 pg (27.0-31.0) L 11/19/17 04:15 MCHC 31.6 g/dL (33.0-37.0) L 11/19/17 04:15 RDW 19.1 % (11.5-14.5) H 11/19/17 04:15 Plt Count 171 K/uL (130-400) 11/19/17 04:15 MPV 8.6 fl (7.2-11.7) 11/14/17 05:50 Neut % (Auto) 88.5 % (50.0-75.0) H 11/14/17 05:50 Lymph % (Auto) 5.4 % (20.0-40.0) L 11/14/17 05:50 [place] % (Auto) 5.8 % (0.0-10.0) 11/14/17 05:50 Eos % (Auto) 0.0 % (0.0-4.0) 11/14/17 05:50 Baso % (Auto) 0.3 % (0.0-2.0) 11/14/17 05:50 Neut # (Auto) 8.2 K/uL (1.8-7.0) H 11/14/17 05:50 Lymph # (Auto) 0.5 K/uL (1.0-4.3) L 11/14/17 05:50 [place] # (Auto) 0.5 K/uL (0.0-0.8) 11/14/17 05:50 Eos # (Auto) 0.0 K/uL (0.0-0.7) 11/14/17 05:50 Baso # (Auto) 0.0 K/uL (0.0-0.2) 11/14/17 05:50 Neutrophils % (Manual) 88 % (42-75) H 11/12/17 18:34 Lymphocytes % (Manual) 5 % (20-50) L 11/12/17 18:34 Monocytes % (Manual) 6 % (0-10) 11/12/17 18:34 Basophils % (Manual) 1 % (0-2) 11/12/17 18:34 Toxic Granulation Present 11/12/17 18:34 Platelet Estimate Normal (NORMAL) 11/12/17 18:34 Hypochromasia (manual) Moderate 11/12/17 18:34 Poikilocytosis (manual Slight 11/12/17 18:34 Anisocytosis (manual) Slight 11/12/17 18:34 Target Cells Slight 11/12/17 18:34 Tear Drop Cells Slight 11/12/17 18:34 Ovalocytes Slight 11/12/17 18:34 Stomatocytes Slight 11/12/17 18:34 Rouleaux Slight 11/12/17 18:34 ESR 29 mm/hr (0-30) 11/13/17 10:45 PT 12.7 Seconds (9.8-13.1) 11/12/17 18:34 INR 1.1 (0.9-1.2) 11/12/17 18:34 APTT 27.3 Seconds (25.6-37.1) 11/12/17 18:34 Lupus Anticoagulant see note 11/13/17 10:45 LA PTT Screen 35 sec (<=40) 11/13/17 10:45 dRVVT Mixing Study 38 sec (<=45) 11/13/17 10:45 dRVVT Mix Interpret Not indicated 11/13/17 10:45 Sodium 144 mmol/l (132-148) 11/19/17 04:15 Potassium 4.8 MMOL/L (3.6-5.0) 11/19/17 04:15 Chloride 95 mmol/L (98-107) L 11/19/17 04:15 Carbon Dioxide 39 mmol/L (22-30) H 11/19/17 04:15 Anion Gap 15 (10-20) 11/19/17 04:15 BUN 37 mg/dl (7-17) H 11/19/17 04:15 Creatinine 1.1 mg/dl (0.7-1.2) 11/19/17 04:15 Est GFR ( Amer) 57 11/19/17 04:15 Est GFR (Non-Af Amer) 47 11/19/17 04:15 POC Glucose (mg/dL) 146 mg/dL (65-110) H 11/21/17 16:27 Random Glucose 114 mg/dL (65-105) H 11/19/17 04:15 Hemoglobin A1c 5.6 % (4.2-6.5) 11/12/17 18:36 Calcium 8.9 mg/dL (8.4-10.2) 11/19/17 04:15 Iron 38 ug/dL (37-170) 11/13/17 14:23 TIBC 259 ug/dL (250-450) 11/13/17 14:23 % Saturation 15 % (20-55) L 11/13/17 14:23 Ferritin 215.0 ng/Ml (11.1-264.0) 11/13/17 14:23 Total Bilirubin 0.4 mg/dl (0.2-1.3) 11/19/17 04:15 Direct Bilirubin 0.4 mg/ml (0.0-0.4) 11/14/17 10:52 GGT 242 U/L (8-78) H 11/13/17 14:23 AST 30 U/L (14-36) 11/19/17 04:15 ALT 65 U/L (9-52) H D 11/19/17 04:15 Alkaline Phosphatase 118 U/L (38-126) 11/19/17 04:15 Ammonia < 9 umo/L (11-51) L 11/13/17 14:23 Troponin I 0.0520 ng/mL (0.00-0.120) 11/12/17 18:34 C-React Prot High Sens 10.02 mg/L (1.00-3.00) H 11/13/17 10:45 Total Protein 6.2 G/DL (6.3-8.2) L 11/19/17 04:15 Albumin 3.3 g/dL (3.5-5.0) L 11/19/17 04:15 Globulin 2.9 gm/dL (2.2-3.9) 11/19/17 04:15 Albumin/Globulin Ratio 1.1 (1.0-2.1) 11/19/17 04:15 Triglycerides 65 mg/DL (0-149) D 11/12/17 18:34 Cholesterol 126 mg/dL (0-199) 11/12/17 18:34 LDL Cholesterol Direct 48 mg/dL (0-129) 11/12/17 18:34 HDL Cholesterol 43 MG/DL (30-70) 11/12/17 18:34 Vitamin B12 893 pg/mL (239-931) 11/13/17 10:45 25-OH Vitamin D Total 62.4 NG/ML (30.0-100.0) 11/13/17 10:45 TSH 3rd Generation 1.86 mIU/ML (0.46-4.68) 11/13/17 10:45 IgG 865.6 mg/dL (700.0-1600.0) 11/19/17 13:12 ALYSE Nuclear Membr Pat Negative (Negative) 11/19/17 13:12 Anti-Mitochondrial Ab Negative (Negative) 11/19/17 13:12 Anti-Smooth Muscle Ab Negative (Negative) 11/19/17 13:12 Hepatitis A IgM Ab Negative (NEGATIVE) 11/13/17 14:23 Hep Bs Antigen Negative (NEGATIVE) 11/13/17 14:23 Hepatitis C Antibody Negative (NEGATIVE) 11/13/17 14:23 Prothrombin Mut Interp see note H 11/13/17 10:45 Prothrombin Gene Mutate see note H 11/13/17 10:45 Prothromb Gene Review see note 11/13/17 10:45 Blood Type O POSITIVE 11/12/17 18:34 Antibody Screen Negative 11/12/17 18:34 BBK History Checked Patient has bt 11/12/17 18:34
[2017-11-21] MEDS ORDERED: Ipratropium 0.02% Inhal Soln (0.5 mg/2.5 ml) UD IH SCH (14:00)
[2017-11-21] MEDS ORDERED: Albuterol 0.083% Inhal Sol (2.5 mg/3 mL) UD INH SCH (14:00)
[2017-11-21 16:18] VITALS: BP 126/52; PULSE 68; TEMP 97.5; O2SAT 99
--- NOTE | 2017-11-24 11:28 | EEG ---
DATE: TECHNICAL INFORMATION: This is an EEG required using 15 electrodes up to 5 using 10-20 International electrode system. All electrodes were to A1/A2, P1/P2 electrodes respectively. Continuous seizure monitoring was done using spike detection software. There was a slow normal background with 6 to 8 Hz, occasionally going up to 9 Hz bilaterally, it did not obtain with eye opening. There was no normal variation of rhythm, that was not modulated well. There were no clinical or subclinical seizures. There were no interictal or epileptiform discharges. There was diffuse generalized slowing with theta and delta record. There were no clinical or subclinical seizures. IMPRESSION: This is an abnormal awake and drowsy electroencephalogram confused generalized slowing indicates encephalopathy. There are no triphasic waves, so we cannot say if this is uremic or hepatic encephalopathy. Clinical correlation is required. Emy Gonzalez MD
== END 2017-11-21 17:38 | DRG 78 ==
LOC: H.ER 17:49 → H.ERHOLD 22:33 → H.TEL 11-13 00:27
PROVIDERS: ADMIT Family Medicine; ATTEND Family Medicine
DX: I67.4 Hypertensive encephalopathy (principal); I50.32 Chronic diastolic (congestive) heart failure; E87.5 Hyperkalemia; I13.0 Hypertensive heart and chronic kidney disease with heart failure and stage 1 through stage 4 chronic kidney disease, or unspecified chronic kidney disease; R47.01 Aphasia; I16.1 Hypertensive emergency; E86.0 Dehydration; F03.90 Unspecified dementia, unspecified severity, without behavioral disturbance, psychotic disturbance, mood disturbance, and anxiety; J44.9 Chronic obstructive pulmonary disease, unspecified; N18.3 Chronic kidney disease, stage 3 (moderate); F32.9 Major depressive disorder, single episode, unspecified; E78.00 Pure hypercholesterolemia, unspecified; M81.0 Age-related osteoporosis without current pathological fracture; E78.5 Hyperlipidemia, unspecified; R94.5 Abnormal results of liver function studies; D50.9 Iron deficiency anemia, unspecified; R47.1 Dysarthria and anarthria; I25.10 Atherosclerotic heart disease of native coronary artery without angina pectoris; F41.0 Panic disorder [episodic paroxysmal anxiety]

== ENCOUNTER 2017-11-21 13:45 | Inpatient (IN) | payer OTHER, MEDICAID ==
[2017-11-21] MEDS ORDERED: Bisacodyl 5mg EC Tab PO PRN (19:31)
[2017-11-21] MEDS ORDERED: Lactulose 10 gm/15 ml Syrup PO PRN (19:31)
[2017-11-21 19:40] VITALS: RESP 20
[2017-11-21] MEDS: Pantoprazole 40 mg EC Tab PO SCH (23:15)
[2017-11-21] MEDS: Albuterol 0.083% Inhal Sol (2.5 mg/3 mL) UD INH PRN (23:44)
[2017-11-22] MEDS: Albuterol 0.083% Inhal Sol (2.5 mg/3 mL) UD INH PRN (06:55)
[2017-11-22] MEDS: Ipratropium 0.02% Inhal Soln (0.5 mg/2.5 ml) UD IH SCH ×4 (07:02→19:08)
[2017-11-22] MEDS: Insulin Lispro (humaLOG) 100 Units/ml Inj SC SCH ×4 (08:21→22:13)
[2017-11-22] MEDS ORDERED: Metoprolol Succinate 50 mg XL Tab PO SCH (09:00)
[2017-11-22] MEDS: Metoprolol Succinate 50 mg XL Tab PO SCH ×2 (09:46→17:06)
--- NOTE | 2017-11-22 12:53 | CP.PCM.CON ---
History of Present Illness - History of Present Illness History of Present Illness: Psychiatry consult note CC: "I'm good." HPI: 86 year old female with previous medical history of dementia, HTN, HLD, OA brought by family to ED with c/o new onset slurred speech, now improved, patient was admitted to TCU following medical admission for further management and treatment. Patient is alert and oriented to self and "hospital". She does not know date or president. She denies acute depression/anxiety/AH/VH/SI/ HI. She denies acute psychiatric complaints to personal lines underwriter. She continues to have chronic neurocognitive deficits due to dementia. PMHx: Dementia, HTN, HLD, OA PPHx: Patient denies psychiatric history, but she is a poor historian; patient on Paxil 20 mg PO Daily ALL: NKDA MSE: A + O x self, "hospital", calm, cooperative, no acute distress, speech slurred at times due to poor dentition, mood/affect- neutral/full range; thought process-coherent, but not relevant/linear at times; no delusions, no AH/ VH/SI/HI, poor I/J due to chronic dementia, good impulse control Impression: 86 yo female w/ dementia and likely history of depression or anxiety , but patient currently denies acute psychiatric complaints. -For acute anxiety can continue treatment w/ Vistaril 25 mg PO Q12 PRN anxiety -Continue Paxil 20 mg PO Daily -No acute psychiatric admission indicated at this time Past Patient History - Past Medical History & Family History Past Medical History?: Yes - Past Social History Smoking Status: Never Smoked - CARDIAC Hx Congestive Heart Failure: Yes Hx Hypercholesterolemia: Yes Hx Hypertension: Yes Hx Peripheral Edema: Yes Other/Comment: plueral effusion - PULMONARY Hx Asthma: Yes Hx Bronchitis: Yes Hx Chronic Obstructive Pulmonary Disease (COPD): Yes Hx Pneumonia: Yes Other/Comment: pleural effusions bilaterally - NEUROLOGICAL Hx Dementia: Yes - HEENT Hx HEENT Problems: No - RENAL Hx Chronic Kidney Disease: Yes (stage 2) - ENDOCRINE/METABOLIC Hx Endocrine Disorders: No - HEMATOLOGICAL/ONCOLOGICAL Hx AIDS: No Hx Anemia: Yes Hx Human Immunodeficiency Virus (HIV): No - INTEGUMENTARY Hx Dermatological Problems: No - MUSCULOSKELETAL/RHEUMATOLOGICAL Hx Arthritis: Yes Hx Falls: Yes Hx Osteoarthritis: Yes Hx Osteoporosis: Yes - GASTROINTESTINAL Hx Diverticulitis: Yes - GENITOURINARY/GYNECOLOGICAL Hx Genitourinary Disorders: No - PSYCHIATRIC Hx Anxiety: Yes Hx Depression: Yes Hx Substance Use: No - SURGICAL HISTORY Hx Surgeries: Yes Hx Hysterectomy: Yes Hx Joint Replacement: Yes (left hip) Hx Orthopedic Surgery: Yes (left knee) - ANESTHESIA Hx Anesthesia: Yes Hx Anesthesia Reactions: No Hx Malignant Hyperthermia: No Meds Allergies/Adverse Reactions: Allergies Allergy/AdvReac Type Severity Reaction Status Date / Time No Known Allergies Allergy Verified 11/21/17 18:11 - Medications Medications: Current Medications Acetaminophen (Tylenol 325mg Tab) 650 mg PO Q6 PRN PRN Reason: Headache Albuterol Sulfate (Albuterol 0.083% Inhal Carmen (2.5 Mg/3 Ml) Ud) 2.5 mg INH RQ4 PRN PRN Reason: Shortness of Breath Last Admin: 11/22/17 06:55 Dose: 2.5 mg Amlodipine Besylate (Norvasc) 5 mg PO DAILY [facility] Last Admin: 11/22/17 09:49 Dose: 5 mg Aspirin (Ecotrin) 81 mg PO DAILY [facility] Last Admin: 11/22/17 09:45 Dose: 81 mg Bisacodyl (Dulcolax) 5 mg PO DAILY PRN PRN Reason: Constipation Ferrous Sulfate (Feosol) 325 mg PO BID [facility] Last Admin: 11/22/17 09:46 Dose: 325 mg Furosemide (Lasix) 40 mg PO DAILY [facility] Last Admin: 11/22/17 09:48 Dose: 40 mg Hydroxyzine Pamoate (Vistaril) 25 mg PO Q12 PRN PRN Reason: Anxiety Last Admin: 11/22/17 00:15 Dose: 25 mg Insulin Human Lispro (Humalog) 0 units SC ACCU-CHECK [facility] PRN Reason: Protocol Last Admin: 11/22/17 11:55 Dose: Not Given Ipratropium [place] (Atrovent) 0.5 mg IH RQID [facility] Last Admin: 11/22/17 12:01 Dose: 0.5 mg Lactulose (Enulose) 10 gm PO DAILY PRN PRN Reason: Constipation Losartan Potassium (Cozaar) 50 mg PO DAILY [facility] Last Admin: 11/22/17 09:47 Dose: 50 mg Memantine (Namenda) 10 mg PO Q12 [facility] Last Admin: 11/22/17 09:46 Dose: 10 mg Metoprolol Succinate (Toprol Xl) 50 mg PO BID [facility] Last Admin: 11/22/17 09:46 Dose: 50 mg Pantoprazole Sodium (Protonix Ec Tab) 40 mg PO HS [facility] Last Admin: 11/21/17 23:15 Dose: 40 mg Paroxetine HCl (Paxil) 20 mg PO DAILY [facility] Last Admin: 11/22/17 09:50 Dose: 20 mg Results - Vital Signs Recent Vital Signs: Last Vital Signs Temp 97.2 F L 11/22/17 08:25 Pulse 61 11/22/17 09:49 Resp 20 11/22/17 08:25 BP 133/54 L 11/22/17 09:49 Pulse Ox 4 L 11/22/17 11:17 - Labs Labs: Laboratory Results - last 24 hr 11/22/17 11/22/17 05:29 11:14 POC Glucose (mg/dL) 105 146 H
[2017-11-22] MEDS: Pantoprazole 40 mg EC Tab PO SCH (22:00)
[2017-11-23] MEDS: Insulin Lispro (humaLOG) 100 Units/ml Inj SC SCH ×3 (06:47→17:00)
[2017-11-23] MEDS: Ipratropium 0.02% Inhal Soln (0.5 mg/2.5 ml) UD IH SCH ×4 (07:36→19:15)
[2017-11-23] MEDS: Metoprolol Succinate 50 mg XL Tab PO SCH ×2 (08:50→17:01)
--- NOTE | 2017-11-23 11:41 | CP.PCM.CON ---
History of Present Illness - History of Present Illness History of Present Illness: I was asked to evaluate patient by Dr Gaviria. Patient is a 86 year old female with PMH HTN, hypercholesterolemia CVA who was admitted to TCU for therapy. The patient was previously admitted to [facility] with weakness, TIA. The patient was hypertensive. She denies chest pain or dyspnea. The patient is sitting in a chair. She denies chest pain at this time. Review of Systems - Review of Systems Systems not reviewed;Unavailable: Dementia Past Patient History - Past Medical History & Family History Past Medical History?: Yes - Past Social History Smoking Status: Never Smoked - CARDIAC Hx Congestive Heart Failure: Yes Hx Hypercholesterolemia: Yes Hx Hypertension: Yes Hx Peripheral Edema: Yes Other/Comment: plueral effusion - PULMONARY Hx Asthma: Yes Hx Bronchitis: Yes Hx Chronic Obstructive Pulmonary Disease (COPD): Yes Hx Pneumonia: Yes Other/Comment: pleural effusions bilaterally - NEUROLOGICAL Hx Dementia: Yes - HEENT Hx HEENT Problems: No - RENAL Hx Chronic Kidney Disease: Yes (stage 2) - ENDOCRINE/METABOLIC Hx Endocrine Disorders: No - HEMATOLOGICAL/ONCOLOGICAL Hx AIDS: No Hx Anemia: Yes Hx Human Immunodeficiency Virus (HIV): No - INTEGUMENTARY Hx Dermatological Problems: No - MUSCULOSKELETAL/RHEUMATOLOGICAL Hx Arthritis: Yes Hx Falls: Yes Hx Osteoarthritis: Yes Hx Osteoporosis: Yes - GASTROINTESTINAL Hx Diverticulitis: Yes - GENITOURINARY/GYNECOLOGICAL Hx Genitourinary Disorders: No - PSYCHIATRIC Hx Anxiety: Yes Hx Depression: Yes Hx Substance Use: No - SURGICAL HISTORY Hx Surgeries: Yes Hx Hysterectomy: Yes Hx Joint Replacement: Yes (left hip) Hx Orthopedic Surgery: Yes (left knee) - ANESTHESIA Hx Anesthesia: Yes Hx Anesthesia Reactions: No Hx Malignant Hyperthermia: No Meds Allergies/Adverse Reactions: Allergies Allergy/AdvReac Type Severity Reaction Status Date / Time No Known Allergies Allergy Verified 11/21/17 18:11 - Medications Medications: Current Medications Acetaminophen (Tylenol 325mg Tab) 650 mg PO Q6 PRN PRN Reason: Headache Albuterol Sulfate (Albuterol 0.083% Inhal Carmen (2.5 Mg/3 Ml) Ud) 2.5 mg INH RQ4 PRN PRN Reason: Shortness of Breath Last Admin: 11/22/17 06:55 Dose: 2.5 mg Amlodipine Besylate (Norvasc) 5 mg PO DAILY [facility] Last Admin: 11/23/17 08:49 Dose: 5 mg Aspirin (Ecotrin) 81 mg PO DAILY [facility] Last Admin: 11/23/17 08:49 Dose: 81 mg Bisacodyl (Dulcolax) 5 mg PO DAILY PRN PRN Reason: Constipation Ferrous Sulfate (Feosol) 325 mg PO BID [facility] Last Admin: 11/23/17 08:49 Dose: 325 mg Furosemide (Lasix) 40 mg PO DAILY [facility] Last Admin: 11/23/17 08:49 Dose: 40 mg Hydroxyzine Pamoate (Vistaril) 25 mg PO Q12 PRN PRN Reason: Anxiety Last Admin: 11/22/17 00:15 Dose: 25 mg Insulin Human Lispro (Humalog) 0 units SC ACCU-CHECK [facility] PRN Reason: Protocol Last Admin: 11/23/17 06:47 Dose: Not Given Ipratropium [place] (Atrovent) 0.5 mg IH RQID [facility] Last Admin: 11/23/17 11:02 Dose: 0.5 mg Lactulose (Enulose) 10 gm PO DAILY PRN PRN Reason: Constipation Losartan Potassium (Cozaar) 50 mg PO DAILY [facility] Last Admin: 11/23/17 08:49 Dose: 50 mg Memantine (Namenda) 10 mg PO Q12 [facility] Last Admin: 11/23/17 08:49 Dose: 10 mg Metoprolol Succinate (Toprol Xl) 50 mg PO BID [facility] Last Admin: 11/23/17 08:50 Dose: 50 mg Pantoprazole Sodium (Protonix Ec Tab) 40 mg PO HS [facility] Last Admin: 11/22/17 22:00 Dose: 40 mg Paroxetine HCl (Paxil) 20 mg PO DAILY [facility] Last Admin: 11/23/17 08:50 Dose: 20 mg Physical Exam - Constitutional Appears: Non-toxic - Head Exam Head Exam: NORMAL INSPECTION - Eye Exam Eye Exam: Normal appearance - ENT Exam ENT Exam: Mucous Membranes Moist - Neck Exam Neck exam: Positive for: Full Rom - Respiratory Exam Respiratory Exam: NORMAL BREATHING PATTERN - Cardiovascular Exam Cardiovascular Exam: REGULAR RHYTHM - GI/Abdominal Exam GI & Abdominal Exam: Normal Bowel Sounds - Rectal Exam Rectal Exam: Deferred - Extremities Exam Extremities exam: Positive for: pedal edema - Back Exam Back exam: NORMAL INSPECTION - Neurological Exam Neurological exam: Alert, Oriented x3 - Psychiatric Exam Psychiatric exam: Normal Affect - Skin Skin Exam: Normal Color Results - Vital Signs Recent Vital Signs: Last Vital Signs Temp 97.9 F 11/23/17 08:26 Pulse 60 11/23/17 08:50 Resp 20 11/23/17 08:26 BP 160/60 H 11/23/17 08:50 Pulse Ox 99 11/23/17 08:26 - Labs Labs: Laboratory Results - last 24 hr 11/22/17 11/22/17 11/22/17 11:14 16:16 20:42 POC Glucose (mg/dL) 146 H 94 147 H - EKG Data EKG Interpreted by: Myself Assessment & Plan (1) CVA (cerebral vascular accident) Assessment and Plan: will continue with antiplatelet and statin therapy Status: Acute (2) Diastolic CHF Assessment and Plan: blood pressure control Status: Chronic Priority: High (3) Hyperlipidemia Assessment and Plan: statin therapy Status: Chronic (4) Hypertension Assessment and Plan: will adjust blood pressure accordingly Status: Chronic
[2017-11-23 16:46] VITALS: O2SAT 100
[2017-11-23 20:07] VITALS: BP 144/67; PULSE 64; TEMP 97.7
[2017-11-23] MEDS: Pantoprazole 40 mg EC Tab PO SCH (21:48)
--- NOTE | 2017-11-23 22:52 | CP.PCM.HP ---
History of Present Illness - History of Present Illness History of Present Illness: This is an 86 y/o female with hx of dementia and chronic pleural effusion was discharged from medical floor after treatment for mild TIA sx . She was started on phys therapy and suggested that she benefits from subacute rehab therapy. Past Patient History - Past Medical History & Family History Past Medical History?: Yes - Past Social History Smoking Status: Never Smoked - CARDIAC Hx Congestive Heart Failure: Yes Hx Hypercholesterolemia: Yes Hx Hypertension: Yes Hx Peripheral Edema: Yes Other/Comment: plueral effusion - PULMONARY Hx Asthma: Yes Hx Bronchitis: Yes Hx Chronic Obstructive Pulmonary Disease (COPD): Yes Hx Pneumonia: Yes Other/Comment: pleural effusions bilaterally - NEUROLOGICAL Hx Dementia: Yes - HEENT Hx HEENT Problems: No - RENAL Hx Chronic Kidney Disease: Yes (stage 2) - ENDOCRINE/METABOLIC Hx Endocrine Disorders: No - HEMATOLOGICAL/ONCOLOGICAL Hx AIDS: No Hx Anemia: Yes Hx Human Immunodeficiency Virus (HIV): No - INTEGUMENTARY Hx Dermatological Problems: No - MUSCULOSKELETAL/RHEUMATOLOGICAL Hx Arthritis: Yes Hx Falls: Yes Hx Osteoarthritis: Yes Hx Osteoporosis: Yes - GASTROINTESTINAL Hx Diverticulitis: Yes - GENITOURINARY/GYNECOLOGICAL Hx Genitourinary Disorders: No - PSYCHIATRIC Hx Anxiety: Yes Hx Depression: Yes Hx Substance Use: No - SURGICAL HISTORY Hx Surgeries: Yes Hx Hysterectomy: Yes Hx Joint Replacement: Yes (left hip) Hx Orthopedic Surgery: Yes (left knee) - ANESTHESIA Hx Anesthesia: Yes Hx Anesthesia Reactions: No Hx Malignant Hyperthermia: No Meds Allergies/Adverse Reactions: Allergies Allergy/AdvReac Type Severity Reaction Status Date / Time No Known Allergies Allergy Verified 11/21/17 18:11 Results - Vital Signs Recent Vital Signs: Last Vital Signs Temp 97.7 F 11/23/17 20:05 Pulse 64 11/23/17 20:05 Resp 20 11/23/17 20:05 BP 144/67 11/23/17 20:05 Pulse Ox 100 11/23/17 20:05 - Labs Labs: Laboratory Results - last 24 hr 11/23/17 11/23/17 11/23/17 05:19 11:30 16:16 POC Glucose (mg/dL) 97 104 97 11/23/17 21:03 POC Glucose (mg/dL) 134 H
--- NOTE | 2017-11-23 22:53 | CP.PCM.PN ---
Subjective - Date & Time of Evaluation Date of Evaluation: 11/23/17 Time of Evaluation: 11:00 - Subjective Subjective: Patient is much more alert today. Sitted by bedside crocheting, Has no fever Has no chest pain or fever. Objective - Vital Signs/Intake and Output Vital Signs (last 24 hours): Temp Pulse Resp BP Pulse Ox 97.7 F 64 20 144/67 100 11/23/17 20:05 11/23/17 20:05 11/23/17 20:05 11/23/17 20:05 11/23/17 20:05 - Medications Medications: Current Medications Acetaminophen (Tylenol 325mg Tab) 650 mg PO Q6 PRN PRN Reason: Headache Albuterol Sulfate (Albuterol 0.083% Inhal Carmen (2.5 Mg/3 Ml) Ud) 2.5 mg INH RQ4 PRN PRN Reason: Shortness of Breath Last Admin: 11/22/17 06:55 Dose: 2.5 mg Amlodipine Besylate (Norvasc) 5 mg PO DAILY [facility] Last Admin: 11/23/17 08:49 Dose: 5 mg Aspirin (Ecotrin) 81 mg PO DAILY [facility] Last Admin: 11/23/17 08:49 Dose: 81 mg Bisacodyl (Dulcolax) 5 mg PO DAILY PRN PRN Reason: Constipation Ferrous Sulfate (Feosol) 325 mg PO BID [facility] Last Admin: 11/23/17 17:01 Dose: 325 mg Furosemide (Lasix) 40 mg PO DAILY [facility] Last Admin: 11/23/17 08:49 Dose: 40 mg Hydroxyzine Pamoate (Vistaril) 25 mg PO Q12 PRN PRN Reason: Anxiety Last Admin: 11/22/17 00:15 Dose: 25 mg Insulin Human Lispro (Humalog) 0 units SC ACCU-CHECK [facility] PRN Reason: Protocol Last Admin: 11/23/17 17:00 Dose: Not Given Ipratropium [place] (Atrovent) 0.5 mg IH RQID [facility] Last Admin: 11/23/17 19:15 Dose: 0.5 mg Lactulose (Enulose) 10 gm PO DAILY PRN PRN Reason: Constipation Losartan Potassium (Cozaar) 50 mg PO DAILY [facility] Last Admin: 11/23/17 08:49 Dose: 50 mg Memantine (Namenda) 10 mg PO Q12 [facility] Last Admin: 11/23/17 21:48 Dose: 10 mg Metoprolol Succinate (Toprol Xl) 50 mg PO BID [facility] Last Admin: 11/23/17 17:01 Dose: 50 mg Pantoprazole Sodium (Protonix Ec Tab) 40 mg PO HS [facility] Last Admin: 11/23/17 21:48 Dose: 40 mg Paroxetine HCl (Paxil) 20 mg PO DAILY [facility] Last Admin: 11/23/17 08:50 Dose: 20 mg
[2017-11-24] MEDS: Insulin Lispro (humaLOG) 100 Units/ml Inj SC SCH (01:50)
[2017-11-24] MEDS: Albuterol 0.083% Inhal Sol (2.5 mg/3 mL) UD INH PRN (03:46)
[2017-11-24] MEDS ORDERED: Albuterol-Ipratrop 3 mg / 0.5 (3 ml) UD INH STA (04:13)
--- NOTE | 2017-11-24 04:28 | PCM.RRT ---
[employer] Nurse Assessment - Situation [employer] Responder Arrival Time: 04:00 Location: [address] [place] [address] Room Number: N709-1 [employer] Reason for Call: Chest Pain [employer] Called By: RN - IV IV Inserted during [employer]?: No - Respiratory Oxygen Delivery Method: Nasal Cannula Received Nebulizer Treatments: Yes Was the Patient Ventilated with Bag/Mask 100% O2?: No Secretions Suctioned?: No Was the Patient Intubated?: No Was the Patient Placed on a Ventilator?: No - Medication Medications Administered During [employer]: Duoneb x 1 - Diagnostic Test Ordered EKG: Yes (@59 hr/min) Chest X-Ray: Yes - Vital Signs Vital Signs: Vitals at the beginning of [employer] BP 150/108, hr 74, RR 16, pulse ox 88% - Time [employer] Ended Time [employer] Ended: 04:15 - Vital Signs at end of [employer] Vital Signs at end of [employer]: BP 152/67,HR 66, RR 15, PULSE ox 97%, temp 98.7 F - Recommendations [employer] Level of Care Recommendations: Discharge to Emergency Room I.Reason for [employer] - A) Acute Change in Patient: (Select all that apply): Chest Pain Subjective: [employer] Location: TCU, room 709-1 [employer] reason: chest pain and dyspnea S: 86 yo F with PMH dementia, HTN, pleural effusion admitted for mild TIA, [employer] was called by pt's nurse due to chest pain, shortness of breath and desaturation to below 90%. O: General: mild respiratory distress, complaints of chest pain HEENT: AT/NC Repiratory: Coarse breathing on right lung field Cardio: RRR, normal S1-S2 Psych: AAO X 3 [employer] intervention: Prior to [employer] team arrival pt received 1 duoneb, second dueneb was ordered for desaturation of 87% and dyspnea NC O2 increased to 4 L EKG CXR Pt was transferred to ED for chest pain evaluation. Assessment/Plan: 86 yo F with PMH dementia, ,CHF, HTN, pleural effusion admitted for mild TIA, has chest pain and dyspnea. Pt transferred to ED for chest pain evaluation. [employer] leader: Dr. Caal [employer] team: Dr. Larsen, pgy-2, Dr. Melton, pgy-1
--- NOTE | 2017-11-24 08:57 | CARD ---
APPROVED REPORT EKG Measurement Heart [id number] <Conclusion> Normal sinus rhythm Normal ECG
--- NOTE | 2017-11-24 09:57 | RAD ---
PROCEDURE: CHEST RADIOGRAPH, 1 VIEW HISTORY: chest pain COMPARISON: Comparison chest 11/19/2017 FINDINGS: LUNGS: Mild pulmonary vascular congestive changes with bilateral lower lobe alveolar-type infiltrates and bilateral effusions. PLEURA: No pneumothorax or pleural fluid seen. CARDIOVASCULAR: Cardiomegaly OSSEOUS STRUCTURES: No significant abnormalities. VISUALIZED UPPER ABDOMEN: Normal. OTHER FINDINGS: None. IMPRESSION: Mild pulmonary vascular congestive changes with bilateral lower lobe alveolar-type infiltrates and bilateral effusions.
== END 2017-11-24 04:25 | disposition short-term general hospital (02) | DRG 945 ==
LOC: H.TCU 18:11
PROVIDERS: ADMIT Family Medicine; ATTEND Family Medicine
PROC: F07Z9FZ Gait Training/Functional Ambulation Treatment using Assistive, Adaptive, Supportive or Protective Equipment (ICD-10-PCS; principal; 2017-11-21)
PROC: F08Z4FZ Home Management Treatment using Assistive, Adaptive, Supportive or Protective Equipment (ICD-10-PCS; 2017-11-21)
DX: R53.1 Weakness (principal); I13.0 Hypertensive heart and chronic kidney disease with heart failure and stage 1 through stage 4 chronic kidney disease, or unspecified chronic kidney disease; I50.32 Chronic diastolic (congestive) heart failure; F03.90 Unspecified dementia, unspecified severity, without behavioral disturbance, psychotic disturbance, mood disturbance, and anxiety; R07.9 Chest pain, unspecified; Z86.73 Personal history of transient ischemic attack (TIA), and cerebral infarction without residual deficits; N18.2 Chronic kidney disease, stage 2 (mild); M81.0 Age-related osteoporosis without current pathological fracture; J44.9 Chronic obstructive pulmonary disease, unspecified; E78.5 Hyperlipidemia, unspecified; E78.00 Pure hypercholesterolemia, unspecified; F41.9 Anxiety disorder, unspecified; M19.91 Primary osteoarthritis, unspecified site; Z96.642 Presence of left artificial hip joint; Z87.01 Personal history of pneumonia (recurrent)

== ENCOUNTER 2017-11-24 04:45 | Inpatient (IN) | payer MEDICARE, MEDICAID ==
[2017-11-24 04:48] VITALS: BMI 26.9
[2017-11-24] MEDS ORDERED: Albuterol 0.083% Inhal Sol (2.5 mg/3 mL) UD INH ONE (05:10)
--- NOTE | 2017-11-24 05:11 | ED PDOC ---
HPI: Chest Pain Time Seen by Provider: 11/24/17 05:01 Chief Complaint (Nursing): Chest Pain Chief Complaint (Provider): Chest Pain History Per: Patient History/Exam Limitations: no limitations Onset/Duration Of Symptoms: Mins (prior to arrival) Current Symptoms Are (Timing): Still Present Additional Complaint(s): 86 year old female with history of dementia, COPD, CAD, HTN, CHF, asthma presents to the ED complaining of chest pain and shortness of breath. PMD: Dr. Ariel Gaviria MD Past Medical History Reviewed: Historical Data, Nursing Documentation, Vital Signs Vital Signs: Last Vital Signs Temp 98.1 F 11/26/17 19:55 Pulse 57 L 11/26/17 19:55 Resp 17 11/26/17 19:55 BP 117/61 11/26/17 19:55 Pulse Ox 99 11/26/17 19:55 - Medical History PMH: Anemia, Anxiety, Arthritis, Asthma, Bronchitis, CAD, CHF, COPD, Dementia, Depression, Diverticulitis, HTN, Hypercholesterolemia, Osteoporosis, Peripheral Edema, Pneumonia, Chronic Kidney Disease (stage 2) Denies: Alzheimer's Disease, Atrial Fibrillation, Bipolar Disorder, Cardia Arrhythmia, Crohn's Disease, Emphysema, Fractures, Gastritis, Gall Bladder Disease, HIV, Hyperthyroidism, Hypothyroidism, Kidney Stones, Migraine, Mitral Valve Prolapse, Multiple Sclerosis, Pancreatitis, Paranoia, Parkinson's Disease , Post Traumatic Stress Disorder, Pulmonary Embolism, Rheumatoid Arthritis, Schizophrenia, Seizures, Sickle Cell Disease, Sexually Transmitted Disease, Sleep Apnea, TIA - Surgical History Surgical History: Denies: Appendectomy, CABG, Carotid Endarterectomy, Cholecystectomy, Coronary Stent, Pacemaker, Tonsillectomy Other surgeries: hip and knee surgeries - Family History Family History: States: Unknown Family Hx - Home Medications Home Medications: Ambulatory Orders Medication Instructions Recorded Metoprolol Succinate [Toprol XL] 50 mg PO DAILY #30 tab 09/30/17 Paroxetine HCl [Paxil] 20 mg PO DAILY #30 tablet 09/30/17 Pravastatin Sodium [Pravachol] 20 mg PO HS #30 tablet 09/30/17 Omeprazole 20 mg PO HS 10/21/17 Bimatoprost [Lumigan] 1 drop BOTHEYES HS 11/12/17 Ergocalciferol (Vitamin D2) 50,000 unit PO FR 11/12/17 [Vitamin D2] Magnesium Hydroxide [Milk Of 30 ml PO DAILY PRN 11/12/17 Magnesia] Memantine [Namenda] 10 mg PO Q12 11/12/17 Vitamin A & D [Vitamin A & D Oint 1 appl TOP QSHIFT 11/12/17 UD Foilpak] Acetaminophen [Tylenol 325mg tab] 650 mg PO Q6 PRN tab 11/21/17 Albuterol 0.083% [Albuterol 0.083% 2.5 mg INH RQ4 PRN neb 11/21/17 Inhal Carmen (2.5 mg/3 ml) UD] Aspirin [Ecotrin] 81 mg PO DAILY [facility] 11/21/17 Bisacodyl [Dulcolax] 5 mg PO DAILY PRN ect 11/21/17 Ferrous Sulfate [Feosol] 325 mg PO BID tab 11/21/17 Furosemide [Lasix] 40 mg IVP DAILY vial 11/21/17 Ipratropium 0.02% [Atrovent] 0.5 mg IH RQID neb 11/21/17 Losartan [Cozaar] 50 mg PO DAILY tab 11/21/17 amLODIPine [Norvasc] 5 mg PO DAILY tab 11/21/17 hydrOXYzine Pamoate [Vistaril] 25 mg PO Q12 PRN cap 11/21/17 - Allergies Allergies/Adverse Reactions: Allergies Allergy/AdvReac Type Severity Reaction Status Date / Time No Known Allergies Allergy Verified 11/24/17 04:47 Review of Systems ROS Statement: Except As Marked, All Systems Reviewed And Found Negative Cardiovascular: Positive for: Chest Pain Respiratory: Positive for: Shortness of Breath Physical Exam - Reviewed Nursing Documentation Reviewed: Yes Vital Signs Reviewed: Yes - Physical Exam Appears: Positive for: Non-toxic Head Exam: Positive for: ATRAUMATIC, NORMOCEPHALIC Eye Exam: Positive for: Normal appearance ENT: Positive for: Other (O2 nasal cannula present) Neck: Positive for: Normal Cardiovascular/Chest: Positive for: Regular Rate, Rhythm Respiratory: Positive for: Rhonchi Gastrointestinal/Abdominal: Positive for: Normal Exam Extremity: Positive for: Swelling (bilateral leg), Other (bilateral 1+ pitting edema) Neurologic/Psych: Positive for: Alert, Oriented - Laboratory Results Result Diagrams: 11/26/17 10:18 11/26/17 10:18 - ECG ECG: Positive for: Interpreted By Me, Viewed By Me ECG Rhythm: Positive for: Junctional Rhythm. Negative for: ST/T Changes Rate: 59 O2 Sat by Pulse Oximetry: 100 (NC) Pulse Ox Interpretation: Normal Medical Decision Making Medical Decision Making: Time: : Initial Plan: short of breath rule out chf exacerbation versus copd versus pnuemonia --BMP --Troponin I --CBC with differentials --PTT --Prothrombin time --Chest x-ray --Albuterol .083% 2.5 mg INH --Peak flow pre/post --Lasix 40 mg IVP EKG --junctional rhythm, rate is 59, no ST elevations. Chest x-ray --reviewed by me, shows indicators of CHF. pt also being treated for copd as well. Time: :18 --consulted PMD, Dr. Ariel Gaviria Time: : Patient will be admitted to inpatient care to Dr. Gaviria. Diagnoses are chest pain, COPD exacerbation and CHF. Scribe Attestation: Documented by Quin Beckham, acting as a scribe for Dorina Gan MD. Provider Scribe Attestation: All medical record entries made by the Scribe were at my direction and personally dictated by me. I have reviewed the chart and agree that the record accurately reflects my personal performance of the history, physical exam, medical decision making, and the department course for this patient. I have also personally directed, reviewed, and agree with the discharge instructions and disposition. Disposition - Clinical Impression Clinical Impression: COPD (chronic obstructive pulmonary disease), Chest pain, CHF (congestive heart failure) - Patient ED Disposition Is Patient to be Admitted: Yes Discussed With : Ariel Gaviria Doctor Will See Patient In The: Hospital Counseled Patient/Family Regarding: Studies Performed, Diagnosis - Disposition Disposition Time: : Condition: STABLE - Pt Status Changed To: Hospital Disposition Of: Inpatient - Admit Certification Admit to Inpatient:: After my assessment, the patient will require hospitalization for at least two midnights. This is because of the severity of symptoms shown, intensity of services needed, and/or the medical risk in this patient being treated as an outpatient.
[2017-11-24 05:38] LABS: BASO % 0.4 % (0.0-2.0); EOS # 0.1 K/uL (0.0-0.7); EOS % 0.9 % (0.0-4.0); HEMOGLOBIN 10.9 g/dL (12.0-16.0); LYMPH # 0.7 K/uL (1.0-4.3); MEAN CELL VOLUME 82.9 fl (81.0-99.0); MEAN CORPUSCULAR HEMOGLOBIN 26.8 pg (27.0-31.0); MEAN CORPUSCULAR HGB CONC 32.3 g/dL (33.0-37.0); MEAN PLATELET VOLUME 8.4 fl (7.2-11.7); MONO # 0.5 K/uL (0.0-0.8); MONO % 5.6 % (0.0-10.0); NEUT # 8.4 K/uL (1.8-7.0); NEUT % 86.1 % (50.0-75.0); NRBC % 0.1 % (0.0-0.0); PLATELET COUNT 170 K/uL (130-400); RBC 4.06 Mil/uL (3.80-5.20); RED CELL DISTRIBUTION WIDTH 19.9 % (11.5-14.5); WHITE BLOOD COUNT 9.7 K/uL (4.8-10.8)
[2017-11-24 05:45] LABS: INR 1.2 (0.9-1.2); PARTIAL THROMBOPLASTIN TIME 31.2 Seconds (25.6-37.1); PROTHROMBIN TIME 13.1 Seconds (9.8-13.1)
[2017-11-24 06:07] LABS: BLOOD UREA NITROGEN 22 mg/dl (7-17); GFR AFRICAN-AMERICAN > 60; GFR NON-AFRICAN AMERICAN > 60
[2017-11-24] MEDS: Albuterol-Ipratrop 3 mg / 0.5 (3 ml) UD INH SCH ×4 (08:50→19:29)
--- NOTE | 2017-11-24 10:48 | CP.PCM.CON ---
History of Present Illness - History of Present Illness History of Present Illness: This is one of a number of admissions for this 86-year-old Albanian-speaking female who suffers from dementia as well as chronic asthma with overlap COPD. She does have a history of dementia as well as hypertension hyperlipidemia and osteoarthritis. She has been followed for recurrent pleural effusions which have occurred primarily on the right, and have shown transudate of pleural fluid on workup. He has had thoracentesis in the past but the fluid has reaccumulated at this time. He does have some degree of diastolic dysfunction with congestive cardiac failure secondarily. She has episodic shortness of breath with chest pain since being admitted to the hospital. 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 Past Patient History - Past Medical History & Family History Past Medical History?: Yes - Past Social History Smoking Status: Never Smoked - CARDIAC Hx Atrial Fibrillation: No Hx Cardia Arrhythmia: No Hx Congestive Heart Failure: Yes Hx Hypercholesterolemia: Yes Hx Hypertension: Yes Hx Mitral Valve Prolapse: No Hx Pacemaker: No Hx Peripheral Edema: Yes - PULMONARY Hx Asthma: Yes Hx Bronchitis: Yes Hx Chronic Obstructive Pulmonary Disease (COPD): Yes Hx Emphysema: No Hx Pneumonia: Yes Hx Pulmonary Embolism: No Hx Sleep Apnea: No - NEUROLOGICAL Hx Alzheimer's Disease: No Hx Dementia: Yes Hx Migraine: No Hx Multiple Sclerosis: No Hx Parkinson's Disease: No Hx Seizures: No Hx Transient Ischemic Attacks (TIA): No - HEENT Hx HEENT Problems: No - RENAL Hx Chronic Kidney Disease: Yes (stage 2) Hx Kidney Stones: No - ENDOCRINE/METABOLIC Hx Hyperthyroidism: No Hx Hypothyroidism: No - HEMATOLOGICAL/ONCOLOGICAL Hx Anemia: Yes Hx Human Immunodeficiency Virus (HIV): No Hx Sickle Cell Disease: No - INTEGUMENTARY Hx Dermatological Problems: No - MUSCULOSKELETAL/RHEUMATOLOGICAL Hx Arthritis: Yes Hx Fractures: No Hx Osteoporosis: Yes Hx Rheumatoid Arthritis: No - GASTROINTESTINAL Hx Crohn's Disease: No Hx Diverticulitis: Yes Hx Gall Bladder Disease: No Hx Gastritis: No Hx Pancreatitis: No - GENITOURINARY/GYNECOLOGICAL Hx Sexually Transmitted Disorders: No - PSYCHIATRIC Hx Anxiety: Yes Hx Bipolar Disorder: No Hx Depression: Yes Hx Paranoia: No Hx Post Traumatic Stress Disorder: No Hx Schizophrenia: No - SURGICAL HISTORY Hx Appendectomy: No Hx Carotid Endarterectomy: No Hx Cholecystectomy: No Hx Coronary Artery Bypass Graft: No Hx Coronary Stent: No Hx Tonsillectomy: No - ANESTHESIA Hx Anesthesia: Yes Hx Anesthesia Reactions: No Hx Malignant Hyperthermia: No Meds Allergies/Adverse Reactions: Allergies Allergy/AdvReac Type Severity Reaction Status Date / Time No Known Allergies Allergy Verified 11/24/17 04:47 - Medications Medications: Current Medications Albuterol Sulfate (Albuterol 0.083% Inhal Carmen (2.5 Mg/3 Ml) Ud) 2.5 mg INH RQ4 PRN PRN Reason: Shortness of Breath Albuterol/Ipratropium (Duoneb 3 Mg/0.5 Mg (3 Ml) Ud) 3 ml INH RQID [facility] Physical Exam - Additional Findings Additional findings: Well-nourished, well-developed and in no acute distress. Her mood appears good and she does cooperate with the physical exam. She does answer questions with a soft response but appears confused. There is no palpable lymphadenopathy. The pharynx is pink and mucous membranes are moist. The nasal passages are patent bilaterally. No bleeding or exudate. There is dullness to percussion at the right base posteriorly. Vocal tactile fremitus is absent in the same area. Breath sounds are diminished bilaterally. Breath sounds are absent at the right base posteriorly. Few scattered expiratory wheezes are present in the lower lobes of both lungs. Scattered dry rales are heard primarily in the lower lobes. No bronchial breathing or egophony. No rub. Heart sounds are distant and rhythm is regular. The abdomen is soft and nontender with normal bowel sounds. No peripheral cyanosis. No dependent edema. No calf tenderness or palpable venous cords. No ecchymosis or rash. Results - Vital Signs Recent Vital Signs: Last Vital Signs Temp 98.3 F 11/24/17 09:25 Pulse 66 11/24/17 09:25 Resp 20 11/24/17 09:25 BP 160/62 H 11/24/17 09:25 Pulse Ox 98 11/24/17 09:25 - Labs Result Diagrams: 11/26/17 10:18 11/27/17 06:00 Labs: Laboratory Results - last 24 hr 11/24/17 11/24/17 11/24/17 05:15 05:18 05:18 WBC 9.7 RBC 4.06 Hgb 10.9 L Hct 33.7 L MCV 82.9 MCH 26.8 L MCHC 32.3 L RDW 19.9 H Plt Count 170 MPV 8.4 Neut % (Auto) 86.1 H Lymph % (Auto) 7.0 L [place] % (Auto) 5.6 Eos % (Auto) 0.9 Baso % (Auto) 0.4 Neut # (Auto) 8.4 H Lymph # (Auto) 0.7 L [place] # (Auto) 0.5 Eos # (Auto) 0.1 Baso # (Auto) 0.0 PT 13.1 INR 1.2 APTT 31.2 Sodium 135 Potassium 4.5 Chloride 85 L Carbon Dioxide 38 H Anion Gap 17 BUN 22 H Creatinine 0.7 Est GFR ( Amer) > 60 Est GFR (Non-Af Amer) > 60 Random Glucose 138 H Calcium 9.0 Troponin I 0.0450 Assessment & Plan (1) Hypoxemia Status: Acute Priority: High (2) Chest pain Status: Resolved Priority: High (3) Chronic asthma Status: Chronic Priority: High Comment: Overlap (ACOS). (4) Pleural effusion Status: Chronic Priority: High - Assessment and Plan (Free Text) Plan: Continue all maintenance medications. Continue aerosol therapy. We'll trial high flow nasal cannula at 30 L/m and 30% O2. Avoid sedating medications if possible. - Date & Time Date: 11/24/17 Time: 10:48
[2017-11-24] MEDS ORDERED: Bisacodyl 5mg EC Tab PO PRN (11:24)
[2017-11-24] MEDS ORDERED: Ipratropium 0.02% Inhal Soln (0.5 mg/2.5 ml) UD IH SCH (12:00)
[2017-11-24 12:16] LABS: ANISOCYTOSIS MODERATE; BASOPHIL 1 % (0-2); EOSINOPHIL 2 % (0-7); HYPOCHROMIC SLIGHT; LYMPHOCYTE 11 % (20-50); MONOCYTE 5 % (0-10); NEUTROPHIL 81 % (42-75); OVALOCYTES SLIGHT; PLATELET ESTIMATE NORMAL (NORMAL); SCHISTOCYTES SLIGHT; TEARDROP CELLS SLIGHT; TOTAL CELLS COUNTED 100
[2017-11-24] MEDS: Metoprolol Succinate 50 mg XL Tab PO SCH (13:16)
[2017-11-24] MEDS: Albuterol 0.083% Inhal Sol (2.5 mg/3 mL) UD INH PRN (13:37)
[2017-11-24] MEDS: Pravastatin Sodium 20 MG TAB PO SCH (21:35)
[2017-11-25] MEDS: Albuterol 0.083% Inhal Sol (2.5 mg/3 mL) UD INH PRN ×2 (00:04→04:04)
[2017-11-25] MEDS: Albuterol-Ipratrop 3 mg / 0.5 (3 ml) UD INH SCH ×5 (08:02→20:13)
[2017-11-25] MEDS: Metoprolol Succinate 50 mg XL Tab PO SCH (09:01)
--- NOTE | 2017-11-25 11:18 | CP.PCM.PN ---
Subjective - Date & Time of Evaluation Date of Evaluation: 11/25/17 Time of Evaluation: 11:14 - Subjective Subjective: Seen on morning rounds in telemetry. There is no respiratory distress but she appears slightly somnolent. High flow nasal cannula has been increased to 30 L and 40% O2. SPO2 has remained stable on this setting. No fever or leukocytosis. Dullness to percussion is present at the right base. Dry to medium rales are heard in the lower lobe on the right and to a lesser extent the left. No audible wheezing is present. No bronchial breathing. Patient is intolerant of mask ventilation in the past. I flow nasal cannula appears to be sufficient for oxygenation but carbon dioxide retention may be problematic. CT scan of the thorax without contrast is requested to evaluate the amount of pleural effusion present on the right. Awaiting ABG. Objective - Vital Signs/Intake and Output Vital Signs (last 24 hours): Temp Pulse Resp BP Pulse Ox 97.4 F L 64 20 147/71 98 11/25/17 08:27 11/25/17 09:02 11/25/17 08:27 11/25/17 09:02 11/25/17 08:27 - Medications Medications: Current Medications Acetaminophen (Tylenol 325mg Tab) 650 mg PO Q6 PRN PRN Reason: Headache Last Admin: 11/24/17 11:47 Dose: 650 mg Albuterol Sulfate (Albuterol 0.083% Inhal Carmen (2.5 Mg/3 Ml) Ud) 2.5 mg INH RQ4 PRN PRN Reason: Shortness of Breath Last Admin: 11/25/17 04:04 Dose: 2.5 mg Albuterol/Ipratropium (Duoneb 3 Mg/0.5 Mg (3 Ml) Ud) 3 ml INH RQID [facility] Last Admin: 11/25/17 08:02 Dose: 3 ml Amlodipine Besylate (Norvasc) 5 mg PO DAILY [facility] Last Admin: 11/25/17 09:02 Dose: 5 mg Aspirin (Ecotrin) 81 mg PO DAILY [facility] Last Admin: 11/25/17 08:59 Dose: 81 mg Bisacodyl (Dulcolax) 5 mg PO DAILY PRN PRN Reason: Constipation Ergocalciferol (Drisdol 50,000 Intl Units Cap) 1 cap PO FR [facility] Ferrous Sulfate (Feosol) 325 mg PO BID [facility] Last Admin: 11/25/17 08:59 Dose: 325 mg Furosemide (Lasix) 40 mg PO DAILY [facility] Last Admin: 11/25/17 09:00 Dose: 40 mg Hydroxyzine Pamoate (Vistaril) 25 mg PO BID [facility] Last Admin: 11/25/17 09:00 Dose: 25 mg Metoprolol Succinate (Toprol Xl) 50 mg PO DAILY [facility] Last Admin: 11/25/17 09:01 Dose: 50 mg Paroxetine HCl (Paxil) 20 mg PO DAILY [facility] Last Admin: 11/25/17 09:00 Dose: 20 mg Pravastatin Sodium (Pravachol) 20 mg PO HS [facility] Last Admin: 11/24/17 21:35 Dose: 20 mg - Labs Labs: 11/24/17 05:18 11/24/17 05:18 PT 13.1 Seconds (9.8-13.1) 11/24/17 05:15 INR 1.2 (0.9-1.2) 11/24/17 05:15 APTT 31.2 Seconds (25.6-37.1) 11/24/17 05:15 Assessment and Plan (1) Hypoxemia Status: Acute (2) Chest pain Status: Acute (3) Chronic asthma Status: Chronic (4) Pleural effusion Status: Chronic
--- NOTE | 2017-11-25 13:05 | CP.PCM.HP ---
<BernardFeliberto - Last Filed: 11/25/17 13:07> History of Present Illness - History of Present Illness History of Present Illness: 86 year old female with previous medical history of dementia, HTN, HLD, OA had to be admitted to regular floor Yesterday after brief stay in TCU. Patient had one episode of CP/Anxiety. Cardiac workup at ED seemed unremarkable for acute ACS. Patient has been having randomly episodes of SOB/CP/Anxiety since her admission to the hosp. She has hx of CHF and PE. Lasix was increased before patient was sent to TCU. She was DC to rehab with suspected diagnosis of TIA vs Hypertensive encaphalopathy during her admission to regular floor. Today patient is alert, awake, responds to commands and has no new complains. However labs shows elevated CO2 and since patient was noticed to have slight increased SOB she was placed on high flow O2 yesterday. Present on Admission - Present on Admission Any Indicators Present on Admission: No Review of Systems - Review of Systems All systems: reviewed and no additional remarkable complaints except Review of Systems: As per HPI Past Patient History - Past Medical History & Family History Past Medical History?: Yes - Past Social History Smoking Status: Never Smoked - CARDIAC Hx Atrial Fibrillation: No Hx Cardia Arrhythmia: No Hx Congestive Heart Failure: Yes Hx Hypercholesterolemia: Yes Hx Hypertension: Yes Hx Mitral Valve Prolapse: No Hx Pacemaker: No Hx Peripheral Edema: Yes - PULMONARY Hx Asthma: Yes Hx Bronchitis: Yes Hx Chronic Obstructive Pulmonary Disease (COPD): Yes Hx Emphysema: No Hx Pneumonia: Yes Hx Pulmonary Embolism: No Hx Sleep Apnea: No - NEUROLOGICAL Hx Alzheimer's Disease: No Hx Dementia: Yes Hx Migraine: No Hx Multiple Sclerosis: No Hx Parkinson's Disease: No Hx Seizures: No Hx Transient Ischemic Attacks (TIA): No - HEENT Hx HEENT Problems: No - RENAL Hx Chronic Kidney Disease: Yes (stage 2) Hx Kidney Stones: No - ENDOCRINE/METABOLIC Hx Hyperthyroidism: No Hx Hypothyroidism: No - HEMATOLOGICAL/ONCOLOGICAL Hx Anemia: Yes Hx Human Immunodeficiency Virus (HIV): No Hx Sickle Cell Disease: No - INTEGUMENTARY Hx Dermatological Problems: No - MUSCULOSKELETAL/RHEUMATOLOGICAL Hx Arthritis: Yes Hx Falls: No Hx Fractures: No Hx Osteoporosis: Yes Hx Rheumatoid Arthritis: No - GASTROINTESTINAL Hx Crohn's Disease: No Hx Diverticulitis: Yes Hx Gall Bladder Disease: No Hx Gastritis: No Hx Pancreatitis: No - GENITOURINARY/GYNECOLOGICAL Hx Sexually Transmitted Disorders: No - PSYCHIATRIC Hx Anxiety: Yes Hx Bipolar Disorder: No Hx Depression: Yes Hx Paranoia: No Hx Post Traumatic Stress Disorder: No Hx Schizophrenia: No Hx Substance Use: No - SURGICAL HISTORY Hx Appendectomy: No Hx Carotid Endarterectomy: No Hx Cholecystectomy: No Hx Coronary Artery Bypass Graft: No Hx Coronary Stent: No Hx Tonsillectomy: No - ANESTHESIA Hx Anesthesia: Yes Hx Anesthesia Reactions: No Hx Malignant Hyperthermia: No Meds Allergies/Adverse Reactions: Allergies Allergy/AdvReac Type Severity Reaction Status Date / Time No Known Allergies Allergy Verified 11/24/17 04:47 Physical Exam - Constitutional Appears: Non-toxic, Confused, Chronically Ill - Eye Exam Eye Exam: PERRL - ENT Exam ENT Exam: Mucous Membranes Moist - Respiratory Exam Respiratory Exam: Decreased Breath Sounds (R/base), Rales (Scattered R/base). absent: Wheezes, Respiratory Distress - Cardiovascular Exam Cardiovascular Exam: REGULAR RHYTHM, +S1, +S2. absent: Gallop - GI/Abdominal Exam GI & Abdominal Exam: Hyperactive Bowel Sounds, Soft. absent: Guarding, Rigid, Tenderness - Neurological Exam Neurological exam: Alert - Skin Skin Exam: Normal Color, Warm Results - Vital Signs Recent Vital Signs: Last Vital Signs Temp 97.7 F 11/25/17 12:21 Pulse 69 11/25/17 12:21 Resp 20 11/25/17 12:21 BP 171/65 H 11/25/17 12:21 Pulse Ox 93 L 11/25/17 12:21 - Labs Result Diagrams: 11/24/17 05:18 11/24/17 05:18 Labs: Laboratory Results - last 24 hr 11/24/17 13:05 Troponin I 0.0490 Assessment & Plan - Assessment and Plan (Free Text) Assessment: CP/Anxiety/SOB Patient has dementia and becomes anxious at times. c/w Paxil and Vistaril CP seems not to be cardiac in origen SOB could be related to diastolic CHF and pleural effusions C/W Oxygen therapy as per Pulmonology Pulmonology consult appreciated C/W Lasix 40 daily, BB and aspirin for now F/U CT chest Chronic anemia likely chronic disease anemia. C/W Iron PO <Ariel Gaviria - Last Filed: 11/25/17 17:03> Results - Vital Signs Recent Vital Signs: Last Vital Signs Temp 97.7 F 11/25/17 16:33 Pulse 65 11/25/17 16:33 Resp 20 11/25/17 16:33 BP 133/68 11/25/17 16:33 Pulse Ox 95 11/25/17 16:33 - Labs Result Diagrams: 11/24/17 05:18 11/24/17 05:18
--- NOTE | 2017-11-25 13:45 | CT ---
PROCEDURE: CT Chest without contrast HISTORY: pleural effusion COMPARISON: 09/24/2017 CT thorax TECHNIQUE: Contiguous axial images were obtained through the chest without intravenous contrast enhancement. Sagittal and coronal reconstructions were performed. Radiation dose (DLP): 677.54 mGy-cm. This CT exam was performed using one or more of the following dose reduction techniques: Automated exposure control, adjustment of the mA and/or kV according to patient size, and/or use of iterative reconstruction technique. FINDINGS: LUNGS: Compressive atelectasis both lower lobes related to bilateral pleural effusions. MEDIASTINUM: Unremarkable thoracic aorta. No aneurysm. Marked cardiomegaly. Clinically other symptoms of congestive heart failure? No pericardial effusion is demonstrated. Main pulmonary artery unremarkable. No vascular congestion. No lymphadenopathy. PLEURA: Increase in right pleural effusion. New left pleural effusion. BONES: No fracture. No destructive lesion. UPPER ABDOMEN: Grossly unremarkable. OTHER FINDINGS: None. IMPRESSION: Increasing right pleural effusion common new left pleural effusion. Lower lobe compressive atelectasis. Cardiomegaly. No pericardial effusion.
--- NOTE | 2017-11-25 17:06 | CP.PCM.PN ---
Subjective - Date & Time of Evaluation Date of Evaluation: 11/25/17 Time of Evaluation: 10:30 - Subjective Subjective: Noted increased pleural effusion Lasix was increased to 40 mg daily and tolerating well. Has no chest pain or SOB Objective - Vital Signs/Intake and Output Vital Signs (last 24 hours): Temp Pulse Resp BP Pulse Ox 97.7 F 65 20 133/68 95 11/25/17 16:33 11/25/17 16:33 11/25/17 16:33 11/25/17 16:33 11/25/17 16:33 - Medications Medications: Current Medications Acetaminophen (Tylenol 325mg Tab) 650 mg PO Q6 PRN PRN Reason: Headache Last Admin: 11/24/17 11:47 Dose: 650 mg Albuterol Sulfate (Albuterol 0.083% Inhal Carmen (2.5 Mg/3 Ml) Ud) 2.5 mg INH RQ4 PRN PRN Reason: Shortness of Breath Last Admin: 11/25/17 04:04 Dose: 2.5 mg Albuterol/Ipratropium (Duoneb 3 Mg/0.5 Mg (3 Ml) Ud) 3 ml INH RQID [facility] Last Admin: 11/25/17 15:40 Dose: 3 ml Amlodipine Besylate (Norvasc) 5 mg PO DAILY [facility] Last Admin: 11/25/17 09:02 Dose: 5 mg Aspirin (Ecotrin) 81 mg PO DAILY [facility] Last Admin: 11/25/17 08:59 Dose: 81 mg Bisacodyl (Dulcolax) 5 mg PO DAILY PRN PRN Reason: Constipation Ergocalciferol (Drisdol 50,000 Intl Units Cap) 1 cap PO [facility] Ferrous Sulfate (Feosol) 325 mg PO BID [facility] Last Admin: 11/25/17 08:59 Dose: 325 mg Furosemide (Lasix) 40 mg PO DAILY [facility] Last Admin: 11/25/17 09:00 Dose: 40 mg Hydroxyzine Pamoate (Vistaril) 25 mg PO BID [facility] Last Admin: 11/25/17 09:00 Dose: 25 mg Metoprolol Succinate (Toprol Xl) 50 mg PO DAILY [facility] Last Admin: 11/25/17 09:01 Dose: 50 mg Paroxetine HCl (Paxil) 20 mg PO DAILY [facility] Last Admin: 11/25/17 09:00 Dose: 20 mg Pravastatin Sodium (Pravachol) 20 mg PO HS [facility] Last Admin: 11/24/17 21:35 Dose: 20 mg - Labs Labs: 11/24/17 05:18 11/24/17 05:18 PT 13.1 Seconds (9.8-13.1) 11/24/17 05:15 INR 1.2 (0.9-1.2) 11/24/17 05:15 APTT 31.2 Seconds (25.6-37.1) 11/24/17 05:15 - Head Exam Head Exam: NORMAL INSPECTION - Eye Exam Eye Exam: Normal appearance - ENT Exam ENT Exam: Mucous Membranes Moist - Respiratory Exam Respiratory Exam: Decreased Breath Sounds - Cardiovascular Exam Cardiovascular Exam: REGULAR RHYTHM - GI/Abdominal Exam GI & Abdominal Exam: Normal Bowel Sounds Assessment and Plan (1) Pleural effusion Status: Acute (2) CHF (congestive heart failure) Status: Acute (3) Altered mental status Status: Acute (4) Anxiety Status: Acute - Assessment and Plan (Free Text) Plan: Cont Lasix daily fluid restriction cont meds phys therapy cont tx longterm SAURABH cont all meds.
[2017-11-25] MEDS: Pravastatin Sodium 20 MG TAB PO SCH (21:43)
[2017-11-26] MEDS: Albuterol-Ipratrop 3 mg / 0.5 (3 ml) UD INH SCH ×4 (08:13→19:51)
--- NOTE | 2017-11-26 10:04 | PQF GENQUE ---
Dr. Gaviria, 2 queries: 1. Please clarify type of asthma: if known: i.e. Mild intermittent Mild persistent Moderate persistent Other (please specify) Clinically unable to determine Unknown 2. Please clarify acuity of asthma: Uncomplicated With exacerbation(acute) With status asthmaticus Other (please specify) Clinically unable to determine Pulmonary consult and attending progress note: Chronic asthma Status: Chronic Comment: Overlap (ACOS). Albuterol QID and prn, High Flow O2 This form is a permanent part of the medical record Clarification of your documentation is requested to better reflect the severity of illness and intensity of treatment of your patient. Indicators present [] Specify: [] [] Specify: [] [] Specify: [] [] Specify: [] Location in the medical record that reflects the above clinical findings: [] Treatment Provided: [] PHYSICIAN'S RESPONSE Based on your medical judgment of the clinical indicators outlined above please clarify the following: [] Practitioner response [] If unable to determine, please check the box, sign and date. Present On Admission (POA) Indicator: [] Present at the time of admission [] Not present at the time of admission [] Clinically Undetermined In responding to this query, please exercise your independent professional judgment. The fact that a question is asked does not imply that any particular answer is desired or expected. Thank you for your clarification on this documentation. If you have any questions please call. * Thank you, Ciara Monroe RN ext. #[phone] MTDD
[2017-11-26 10:31] LABS: HEMOGLOBIN 10.2 g/dL (12.0-16.0); MEAN CELL VOLUME 82.8 fl (81.0-99.0); MEAN CORPUSCULAR HEMOGLOBIN 26.3 pg (27.0-31.0); MEAN CORPUSCULAR HGB CONC 31.8 g/dL (33.0-37.0); RBC 3.87 Mil/uL (3.80-5.20); RED CELL DISTRIBUTION WIDTH 20.5 % (11.5-14.5); WHITE BLOOD COUNT 7.8 K/uL (4.8-10.8)
--- NOTE | 2017-11-26 10:43 | CP.PCM.PN ---
Subjective - Date & Time of Evaluation Date of Evaluation: 11/26/17 Time of Evaluation: 10:41 - Subjective Subjective: CT chest shows increased effusion on the right plus re-occurrence of left sided effusion. Bibasal passive atelectasis also present. Eval for repeat thoracentesis. Agree with increased diuretic therapy. Objective - Vital Signs/Intake and Output Vital Signs (last 24 hours): Temp Pulse Resp BP Pulse Ox 97.9 F 61 18 163/64 H 98 11/26/17 08:00 11/26/17 09:28 11/26/17 08:15 11/26/17 09:28 11/26/17 08:00 Intake and Output: 11/25/17 11/26/17 23:59 11:59 Intake Total 650 Balance 650 - Medications Medications: Current Medications Acetaminophen (Tylenol 325mg Tab) 650 mg PO Q6 PRN PRN Reason: Headache Last Admin: 11/24/17 11:47 Dose: 650 mg Albuterol Sulfate (Albuterol 0.083% Inhal Carmen (2.5 Mg/3 Ml) Ud) 2.5 mg INH RQ4 PRN PRN Reason: Shortness of Breath Last Admin: 11/25/17 04:04 Dose: 2.5 mg Albuterol/Ipratropium (Duoneb 3 Mg/0.5 Mg (3 Ml) Ud) 3 ml INH RQID [facility] Last Admin: 11/26/17 08:13 Dose: 3 ml Amlodipine Besylate (Norvasc) 5 mg PO DAILY [facility] Last Admin: 11/26/17 09:28 Dose: 5 mg Aspirin (Ecotrin) 81 mg PO DAILY [facility] Last Admin: 11/26/17 09:26 Dose: 81 mg Bisacodyl (Dulcolax) 5 mg PO DAILY PRN PRN Reason: Constipation Ergocalciferol (Drisdol 50,000 Intl Units Cap) 1 cap PO [facility] Ferrous Sulfate (Feosol) 325 mg PO BID [facility] Last Admin: 11/26/17 09:26 Dose: 325 mg Furosemide (Lasix) 40 mg PO DAILY [facility] Last Admin: 11/26/17 09:27 Dose: 40 mg Hydroxyzine Pamoate (Vistaril) 25 mg PO BID [facility] Last Admin: 11/26/17 09:26 Dose: 25 mg Metoprolol Succinate (Toprol Xl) 50 mg PO DAILY [facility] Last Admin: 11/25/17 09:01 Dose: 50 mg Paroxetine HCl (Paxil) 20 mg PO DAILY [facility] Last Admin: 11/26/17 09:26 Dose: 20 mg Pravastatin Sodium (Pravachol) 20 mg PO [facility] Last Admin: 11/25/17 21:43 Dose: 20 mg - Labs Labs: 11/24/17 05:18 11/24/17 05:18 PT 13.1 Seconds (9.8-13.1) 11/24/17 05:15 INR 1.2 (0.9-1.2) 11/24/17 05:15 APTT 31.2 Seconds (25.6-37.1) 11/24/17 05:15 Assessment and Plan (1) Hypoxemia Status: Acute (2) Chest pain Status: Acute (3) Chronic asthma Status: Chronic (4) Pleural effusion Status: Chronic
--- NOTE | 2017-11-26 10:43 | CP.PCM.PN ---
Subjective - Date & Time of Evaluation Date of Evaluation: 11/26/17 Time of Evaluation: 08:40 - Subjective Subjective: No acute distress. Still c/o mild SOB. Denies CP, palpitations or pain. More alert and awake than previous days. No acute events overnight. CT results noted Objective - Vital Signs/Intake and Output Vital Signs (last 24 hours): Temp Pulse Resp BP Pulse Ox 97.9 F 61 18 163/64 H 98 11/26/17 08:00 11/26/17 09:28 11/26/17 08:15 11/26/17 09:28 11/26/17 08:00 - Medications Medications: Current Medications Acetaminophen (Tylenol 325mg Tab) 650 mg PO Q6 PRN PRN Reason: Headache Last Admin: 11/24/17 11:47 Dose: 650 mg Albuterol Sulfate (Albuterol 0.083% Inhal Carmen (2.5 Mg/3 Ml) Ud) 2.5 mg INH RQ4 PRN PRN Reason: Shortness of Breath Last Admin: 11/25/17 04:04 Dose: 2.5 mg Albuterol/Ipratropium (Duoneb 3 Mg/0.5 Mg (3 Ml) Ud) 3 ml INH RQID [facility] Last Admin: 11/26/17 08:13 Dose: 3 ml Amlodipine Besylate (Norvasc) 5 mg PO DAILY [facility] Last Admin: 11/26/17 09:28 Dose: 5 mg Aspirin (Ecotrin) 81 mg PO DAILY [facility] Last Admin: 11/26/17 09:26 Dose: 81 mg Bisacodyl (Dulcolax) 5 mg PO DAILY PRN PRN Reason: Constipation Ergocalciferol (Drisdol 50,000 Intl Units Cap) 1 cap PO [facility] Ferrous Sulfate (Feosol) 325 mg PO BID [facility] Last Admin: 11/26/17 09:26 Dose: 325 mg Furosemide (Lasix) 40 mg PO DAILY [facility] Last Admin: 11/26/17 09:27 Dose: 40 mg Hydroxyzine Pamoate (Vistaril) 25 mg PO BID [facility] Last Admin: 11/26/17 09:26 Dose: 25 mg Metoprolol Succinate (Toprol Xl) 50 mg PO DAILY [facility] Last Admin: 11/25/17 09:01 Dose: 50 mg Paroxetine HCl (Paxil) 20 mg PO DAILY [facility] Last Admin: 11/26/17 09:26 Dose: 20 mg Pravastatin Sodium (Pravachol) 20 mg PO HS [facility] Last Admin: 11/25/17 21:43 Dose: 20 mg - Labs Labs: 11/24/17 05:18 11/24/17 05:18 PT 13.1 Seconds (9.8-13.1) 11/24/17 05:15 INR 1.2 (0.9-1.2) 11/24/17 05:15 APTT 31.2 Seconds (25.6-37.1) 11/24/17 05:15 - Constitutional Appears: Non-toxic - Eye Exam Eye Exam: PERRL - ENT Exam ENT Exam: Mucous Membranes Moist - Respiratory Exam Respiratory Exam: Decreased Breath Sounds (BB). absent: Wheezes - Cardiovascular Exam Cardiovascular Exam: +S1, +S2. absent: Gallop - GI/Abdominal Exam GI & Abdominal Exam: Soft, Normal Bowel Sounds. absent: Tenderness - Extremities Exam Extremities Exam: Normal Capillary Refill, Pedal Edema (trace). absent: Calf Tenderness - Neurological Exam Neurological Exam: Alert, Awake, Oriented x3 - Psychiatric Exam Psychiatric exam: Normal Affect, Normal Mood - Skin Skin Exam: Normal Color, Warm Assessment and Plan - Assessment and Plan (Free Text) Assessment: Bilateral pleural effusions on CT chest(increased interval change) Increase Lasix to 40 BID and will monitor kidney function daily Pulm consult appreciated Case discussed with Dr Gamboa this morning. For thoracentesis by IR Last Echo 1 month ago unremarkable other than mild valvulopathy Albumin 3s and CKD improved. BUN/creat WNL now Unable to determine cause of PE at this time Previous pleural fluid exams have been transudates
[2017-11-26 10:47] LABS: BLOOD UREA NITROGEN 20 mg/dl (7-17); CALCIUM 8.7 mg/dL (8.4-10.2); GFR AFRICAN-AMERICAN > 60; GFR NON-AFRICAN AMERICAN > 60
[2017-11-26] MEDS: Metoprolol Succinate 50 mg XL Tab PO SCH (11:45)
[2017-11-26] MEDS: Pravastatin Sodium 20 MG TAB PO SCH (22:00)
[2017-11-27] MEDS: Albuterol-Ipratrop 3 mg / 0.5 (3 ml) UD INH SCH ×4 (07:44→20:01)
[2017-11-27 08:30] LABS: BLOOD UREA NITROGEN 17 mg/dl (7-17); CALCIUM 8.4 mg/dL (8.4-10.2); GFR AFRICAN-AMERICAN > 60; GFR NON-AFRICAN AMERICAN > 60
[2017-11-27] MEDS: Metoprolol Succinate 50 mg XL Tab PO SCH (09:13)
[2017-11-27] MEDS: Potassium Chloride 20 mEq ER Tab PO SCH (09:14)
--- NOTE | 2017-11-27 10:10 | CP.PCM.PN ---
Subjective - Date & Time of Evaluation Date of Evaluation: 11/27/17 Time of Evaluation: 08:55 - Subjective Subjective: No acute events overnight. States feeling better and look improved clinically. CO2 level noted to be high. Discussed with Dr Gamboa this morning. POA contacted by [facility] awaiting call back for authorization to proceed with thoracentesis. Meds reviewed. Deneis CP, palpitations. Still c/o mild SOB but seem to tolerate decubitus without much difficulty. As per patient no BM for 3 days Objective - Vital Signs/Intake and Output Vital Signs (last 24 hours): Temp Pulse Resp BP Pulse Ox 97.6 F 58 L 18 135/60 100 11/27/17 08:00 11/27/17 09:13 11/27/17 08:00 11/27/17 09:13 11/27/17 08:00 - Medications Medications: Current Medications Acetaminophen (Tylenol 325mg Tab) 650 mg PO Q6 PRN PRN Reason: Headache Last Admin: 11/24/17 11:47 Dose: 650 mg Albuterol Sulfate (Albuterol 0.083% Inhal Carmen (2.5 Mg/3 Ml) Ud) 2.5 mg INH RQ4 PRN PRN Reason: Shortness of Breath Last Admin: 11/25/17 04:04 Dose: 2.5 mg Albuterol/Ipratropium (Duoneb 3 Mg/0.5 Mg (3 Ml) Ud) 3 ml INH RQID [facility] Last Admin: 11/27/17 07:44 Dose: 3 ml Amlodipine Besylate (Norvasc) 5 mg PO DAILY [facility] Last Admin: 11/27/17 09:11 Dose: 5 mg Aspirin (Ecotrin) 81 mg PO DAILY [facility] Last Admin: 11/27/17 09:10 Dose: 81 mg Bisacodyl (Dulcolax) 5 mg PO DAILY PRN PRN Reason: Constipation Ergocalciferol (Drisdol 50,000 Intl Units Cap) 1 cap PO FR [facility] Ferrous Sulfate (Feosol) 325 mg PO BID [facility] Last Admin: 11/27/17 09:11 Dose: 325 mg Furosemide (Lasix) 40 mg PO BID [facility] Last Admin: 11/27/17 09:11 Dose: 40 mg Hydroxyzine Pamoate (Vistaril) 25 mg PO BID [facility] Last Admin: 11/27/17 09:13 Dose: 25 mg Metoprolol Succinate (Toprol Xl) 50 mg PO DAILY [facility] Last Admin: 11/27/17 09:13 Dose: Not Given Paroxetine HCl (Paxil) 20 mg PO DAILY [facility] Last Admin: 11/27/17 09:12 Dose: 20 mg Potassium Chloride (K-Dur 20 Meq Er Tab) 20 meq PO DAILY [facility] Last Admin: 11/27/17 09:14 Dose: 20 meq Pravastatin Sodium (Pravachol) 20 mg PO HS [facility] Last Admin: 11/26/17 22:00 Dose: 20 mg - Labs Labs: 11/26/17 10:18 11/27/17 06:00 PT 13.1 Seconds (9.8-13.1) 11/24/17 05:15 INR 1.2 (0.9-1.2) 11/24/17 05:15 APTT 31.2 Seconds (25.6-37.1) 11/24/17 05:15 - Constitutional Appears: Confused (at times), Chronically Ill - Eye Exam Eye Exam: PERRL - ENT Exam ENT Exam: Mucous Membranes Moist - Respiratory Exam Respiratory Exam: Decreased Breath Sounds (BB), Rhonchi. absent: Wheezes, Respiratory Distress - Cardiovascular Exam Cardiovascular Exam: REGULAR RHYTHM, +S1, +S2. absent: Gallop - GI/Abdominal Exam GI & Abdominal Exam: Soft, Normal Bowel Sounds. absent: Tenderness - Extremities Exam Extremities Exam: Normal Capillary Refill. absent: Calf Tenderness, Pedal Edema - Neurological Exam Neurological Exam: Alert, Awake - Psychiatric Exam Psychiatric exam: Normal Affect, Normal Mood - Skin Skin Exam: Normal Color, Warm Assessment and Plan - Assessment and Plan (Free Text) Assessment: B/L PE with hypercarbia Thoracentesis recommended: Await POA authorization Pulmonology consult appreciated DC lasix and start Diamox as per pulm recs F/U ABG results Seem better clinically Stool softeners
--- NOTE | 2017-11-27 11:19 | CP.PCM.PN ---
Subjective - Date & Time of Evaluation Date of Evaluation: 11/27/17 Time of Evaluation: 11:16 - Subjective Subjective: Lying in bed, semi-supine. Claims to feel improved today. Oxygenation is better, but CO2 has increased. As per nursing, somewhat somnolent today. ABG has been requested (second request). High Flow nasal canula in place, O2 reduced to 35%. CT results noted yesterday: if agreed, therapeutic thoracentesis can be requested. Easily awakened, responds appropriately. No dependant edema noted, no cyanosis. Breath sounds are present bilaterally, diminished. Few dry rales in dependant regions of both lungs. No audible wheezing or bronchial breathing. Heart sounds are distant, rhythm is regular. Neck is supple and trachea midline. Vistaril changed to PRN for agitation. ABG requested again. Thoracentesis pending POA consent. Objective - Vital Signs/Intake and Output Vital Signs (last 24 hours): Temp Pulse Resp BP Pulse Ox 97.6 F 58 L 16 135/60 100 11/27/17 08:00 11/27/17 09:13 11/27/17 11:00 11/27/17 09:13 11/27/17 08:00 - Medications Medications: Current Medications Acetaminophen (Tylenol 325mg Tab) 650 mg PO Q6 PRN PRN Reason: Headache Last Admin: 11/24/17 11:47 Dose: 650 mg Acetazolamide (Diamox 250 Mg Tab) 250 mg PO BID [facility] Albuterol Sulfate (Albuterol 0.083% Inhal Carmen (2.5 Mg/3 Ml) Ud) 2.5 mg INH RQ4 PRN PRN Reason: Shortness of Breath Last Admin: 11/25/17 04:04 Dose: 2.5 mg Albuterol/Ipratropium (Duoneb 3 Mg/0.5 Mg (3 Ml) Ud) 3 ml INH RQID [facility] Last Admin: 11/27/17 11:00 Dose: 3 ml Amlodipine Besylate (Norvasc) 5 mg PO DAILY [facility] Last Admin: 11/27/17 09:11 Dose: 5 mg Aspirin (Ecotrin) 81 mg PO DAILY [facility] Last Admin: 11/27/17 09:10 Dose: 81 mg Bisacodyl (Dulcolax) 5 mg PO DAILY PRN PRN Reason: Constipation Ergocalciferol (Drisdol 50,000 Intl Units Cap) 1 cap PO FR [facility] Ferrous Sulfate (Feosol) 325 mg PO BID [facility] Last Admin: 11/27/17 09:11 Dose: 325 mg Hydroxyzine Pamoate (Vistaril) 25 mg PO BID [facility] Last Admin: 11/27/17 09:13 Dose: 25 mg Metoprolol Succinate (Toprol Xl) 50 mg PO DAILY [facility] Last Admin: 11/27/17 09:13 Dose: Not Given Paroxetine HCl (Paxil) 20 mg PO DAILY [facility] Last Admin: 11/27/17 09:12 Dose: 20 mg Potassium Chloride (K-Dur 20 Meq Er Tab) 20 meq PO DAILY [facility] Last Admin: 11/27/17 09:14 Dose: 20 meq Pravastatin Sodium (Pravachol) 20 mg PO HS [facility] Last Admin: 11/26/17 22:00 Dose: 20 mg - Labs Labs: 11/26/17 10:18 11/27/17 06:00 PT 13.1 Seconds (9.8-13.1) 11/24/17 05:15 INR 1.2 (0.9-1.2) 11/24/17 05:15 APTT 31.2 Seconds (25.6-37.1) 11/24/17 05:15 Assessment and Plan (1) Hypoxemia Status: Acute (2) Chest pain Status: Resolved (3) Chronic asthma Status: Chronic (4) Pleural effusion Status: Chronic
[2017-11-27 13:34] LABS: ABG ALLEN TEST YES; ARTERIAL BLOOD GAS HEMOGLOBIN 10.3 g/dL (11.7-17.4); ARTERIAL BLOOD GAS O2 CAPACITY 13.9 mL/dL (16-24); ARTERIAL BLOOD GAS O2 CONTENT 13.1 ML/dL (15-23); ARTERIAL BLOOD GAS O2 SAT 94.2 % (95-98); ARTERIAL BLOOD GAS PCO2 66 mm/Hg (35-45); ARTERIAL BLOOD GAS PH 7.52 (7.35-7.45); ARTERIAL BLOOD GAS PO2 57 mm/Hg (80-100); ARTERIAL BLOOD GAS TCO2 55.9 mmol/L (22-28)
[2017-11-27] MEDS: Enoxaparin 40 mg Syringe SC SCH (16:42)
[2017-11-27] MEDS: Pravastatin Sodium 20 MG TAB PO SCH (21:12)
[2017-11-28 06:56] LABS: BLOOD UREA NITROGEN 13 mg/dl (7-17); CALCIUM 8.8 mg/dL (8.4-10.2); GFR AFRICAN-AMERICAN > 60; GFR NON-AFRICAN AMERICAN 60
[2017-11-28] MEDS: Albuterol-Ipratrop 3 mg / 0.5 (3 ml) UD INH SCH ×4 (07:53→19:33)
[2017-11-28] MEDS ORDERED: Enoxaparin 40 mg Syringe SC SCH (09:00)
[2017-11-28] MEDS: Enoxaparin 40 mg Syringe SC SCH (09:26)
[2017-11-28] MEDS: Potassium Chloride 20 mEq ER Tab PO SCH (09:28)
[2017-11-28] MEDS ORDERED: Ergocalciferol 50,000 Intl Units Cap PO SCH (11:24)
--- NOTE | 2017-11-28 11:47 | CP.PCM.PN ---
Subjective - Date & Time of Evaluation Date of Evaluation: 11/28/17 Time of Evaluation: 10:45 - Subjective Subjective: Patient stable overnight. Looks better clinically and is more talkative and smiling. No Bm for 3 days. Denies any pain, CP, palpitations, SOB. afebrile. Objective - Vital Signs/Intake and Output Vital Signs (last 24 hours): Temp Pulse Resp BP Pulse Ox 98.1 F 63 20 125/49 L 99 11/28/17 08:00 11/28/17 08:00 11/28/17 08:00 11/28/17 08:00 11/28/17 08:00 - Medications Medications: Current Medications Acetaminophen (Tylenol 325mg Tab) 650 mg PO Q6 PRN PRN Reason: Headache Last Admin: 11/24/17 11:47 Dose: 650 mg Acetazolamide (Diamox 250 Mg Tab) 250 mg PO BID [facility] Last Admin: 11/28/17 09:26 Dose: 250 mg Albuterol Sulfate (Albuterol 0.083% Inhal Carmen (2.5 Mg/3 Ml) Ud) 2.5 mg INH RQ4 PRN PRN Reason: Shortness of Breath Last Admin: 11/25/17 04:04 Dose: 2.5 mg Albuterol/Ipratropium (Duoneb 3 Mg/0.5 Mg (3 Ml) Ud) 3 ml INH RQID [facility] Last Admin: 11/28/17 07:53 Dose: 3 ml Amlodipine Besylate (Norvasc) 5 mg PO DAILY [facility] Last Admin: 11/27/17 09:11 Dose: 5 mg Aspirin (Ecotrin) 81 mg PO DAILY [facility] Last Admin: 11/28/17 09:27 Dose: 81 mg Bisacodyl (Dulcolax) 5 mg PO DAILY PRN PRN Reason: Constipation Docusate Sodium (Colace) 100 mg PO BID [facility] Last Admin: 11/28/17 09:27 Dose: 100 mg Enoxaparin Sodium (Lovenox) 40 mg SC DAILY [facility] PRN Reason: Protocol Last Admin: 11/28/17 09:26 Dose: 40 mg Ergocalciferol (Drisdol 50,000 Intl Units Cap) 1 cap PO [facility] Ferrous Sulfate (Feosol) 325 mg PO BID [facility] Last Admin: 11/28/17 09:27 Dose: 325 mg Hydroxyzine Pamoate (Vistaril) 25 mg PO BID PRN PRN Reason: Anxiety Metoprolol Succinate (Toprol Xl) 50 mg PO DAILY [facility] Last Admin: 11/27/17 09:13 Dose: Not Given Paroxetine HCl (Paxil) 20 mg PO DAILY [facility] Last Admin: 11/28/17 09:27 Dose: 20 mg Potassium Chloride (K-Dur 20 Meq Er Tab) 20 meq PO DAILY [facility] Last Admin: 11/28/17 09:28 Dose: 20 meq Pravastatin Sodium (Pravachol) 20 mg PO HS [facility] Last Admin: 11/27/17 21:12 Dose: 20 mg - Labs Labs: 11/26/17 10:18 11/28/17 05:00 PT 13.1 Seconds (9.8-13.1) 11/24/17 05:15 INR 1.2 (0.9-1.2) 11/24/17 05:15 APTT 31.2 Seconds (25.6-37.1) 11/24/17 05:15 - Constitutional Appears: Non-toxic - Eye Exam Eye Exam: PERRL - ENT Exam ENT Exam: Mucous Membranes Moist - Respiratory Exam Respiratory Exam: Decreased Breath Sounds (BB), NORMAL BREATHING PATTERN. absent: Rales, Wheezes, Respiratory Distress - Cardiovascular Exam Cardiovascular Exam: +S1, +S2. absent: Gallop - GI/Abdominal Exam GI & Abdominal Exam: Soft, Normal Bowel Sounds. absent: Guarding, Rigid, Tenderness - Extremities Exam Extremities Exam: Normal Capillary Refill. absent: Calf Tenderness, Pedal Edema , Tenderness - Neurological Exam Neurological Exam: Alert, Awake, Oriented x3 - Psychiatric Exam Psychiatric exam: Normal Affect, Normal Mood - Skin Skin Exam: Normal Color, Warm Assessment and Plan - Assessment and Plan (Free Text) Assessment: B/L PE with hypercarbia CO2 improved since Yesterday On high flow O2: F/U Pulmonology recs for possible wean off high flow o2 today Awaiting POA decision about thoracentesis Clinically improved and stable
[2017-11-28] MEDS: Metoprolol Succinate 50 mg XL Tab PO SCH (12:39)
[2017-11-28] MEDS ORDERED: Lidocaine 1% Inj (20ml) ONE (14:58)
--- NOTE | 2017-11-28 15:26 | PCM.SURG1 ---
Surgeon's Initial Post Op Note - Surgeon's Notes Surgeon: Akhil Canales MD Agency Sales Director: None Type of Anesthesia: Local Pre-Operative Diagnosis: sob, pleural effusion Operative Findings: small right pleural effusion Post-Operative Diagnosis: same Operation Performed: US guided right thoracentesis Specimen/Specimens Removed: 300 cc ivis fluid removed Estimated Blood Loss: EBL {In ML}: 0 Date of Surgery/Procedure: 11/28/17 Time of Surgery/Procedure: 15:15
--- NOTE | 2017-11-28 15:41 | US ---
PROCEDURE: ULTRASOUND-GUIDED THORACENTESIS CLINICAL HISTORY: 86-year-old female with symptomatic pleural effusions is referred to Interventional Radiology for ultrasound-guided thoracentesis. COMPARISON: CT chest dated 11/25/2017 PROCEDURE: 1. Ultrasound-guided right thoracentesis. PRE-PROCEDURE FINDINGS: 1. Small volume pleural effusion. POST-PROCEDURE FINDINGS: 1. No evidence of post-procedural complication. INTERVENTIONAL RADIOLOGIST: Akhil Canales M.D. (the attending was present for the entire procedure) ANESTHESIA: None. MEDICATION: Lidocaine 1% for local subcutaneous analgesia. COMPLICATIONS: None. PROCEDURE DESCRIPTION AND FINDINGS: The risks, benefits, alternatives and possible complications of the procedure were fully discussed; all questions were answered and informed consent was obtained. The patient was brought into the interventional suite and a pre-procedure 'time-out' was performed. The patient was placed in the seated position. Preliminary ultrasound images of the right hemithorax demonstrate a small simple appearing pleural effusion. The right hemithorax was prepped and draped in the usual sterile fashion. Maximum sterile barrier precautions were maintained throughout the entire procedure. Following subcutaneous infiltration of lidocaine 1% for local analgesia, under ultrasound guidance, a 5 Taiwanese centesis catheter was advanced into right pleural space with real-time visualization of needle entry. The ultrasound images were permanently recorded and submitted to the PACS. The inner stylet was removed with prompt return of straw-colored fluid. The catheter was attached to gentle vacuum suction. A total of 300 mL of ivis fluid was aspirated. The drainage catheter was then removed. A sterile adhesive bandage was placed over the puncture site. The patient tolerated the procedure well without immediate post-procedure complications and was transferred back to the floor in stable condition. IMPRESSION: SUCCESSFUL ULTRASOUND-GUIDED RIGHT THERAPEUTIC THORACENTESIS.
[2017-11-28] MEDS: Pravastatin Sodium 20 MG TAB PO SCH (21:21)
[2017-11-29 07:42] LABS: BLOOD UREA NITROGEN 13 mg/dl (7-17); CALCIUM 9.1 mg/dL (8.4-10.2); GFR AFRICAN-AMERICAN > 60; GFR NON-AFRICAN AMERICAN 60
[2017-11-29] MEDS: Albuterol-Ipratrop 3 mg / 0.5 (3 ml) UD INH SCH ×4 (07:48→19:49)
[2017-11-29] MEDS: Enoxaparin 40 mg Syringe SC SCH (09:03)
[2017-11-29] MEDS: Potassium Chloride 20 mEq ER Tab PO SCH (09:03)
[2017-11-29] MEDS: Metoprolol Succinate 50 mg XL Tab PO SCH (09:05)
--- NOTE | 2017-11-29 10:14 | CP.PCM.PN ---
Subjective - Date & Time of Evaluation Date of Evaluation: 11/29/17 Time of Evaluation: 10:14 - Subjective Subjective: Sitting up in bed, crocheting. Appears comfortable, good oxygenation. Remains on HFNC w/o shortness of breath. Afebrile, normotensive. Had thoracentesis yesterday with 300cc's removed. No cyanosis. No dependant edema. No dullness on percussion of the anterior chest wall. Breath sounds are diminished bilaterally. No audible wheezing, few rhonchi in lower lobes. HFNC reduced to 20LPM and 30%O2. Continue acetazolamide 250mg BID. Followup BMP tomorrow. Objective - Vital Signs/Intake and Output Vital Signs (last 24 hours): Temp Pulse Resp BP Pulse Ox 98.3 F 71 20 135/68 97 11/29/17 08:17 11/29/17 09:05 11/29/17 08:17 11/29/17 09:05 11/29/17 08:17 Intake and Output: 11/28/17 11/29/17 23:59 11:59 Intake Total 500 Balance 500 - Medications Medications: Current Medications Acetaminophen (Tylenol 325mg Tab) 650 mg PO Q6 PRN PRN Reason: Headache Last Admin: 11/24/17 11:47 Dose: 650 mg Acetazolamide (Diamox 250 Mg Tab) 250 mg PO BID [facility] Last Admin: 11/29/17 09:03 Dose: 250 mg Albuterol Sulfate (Albuterol 0.083% Inhal Carmen (2.5 Mg/3 Ml) Ud) 2.5 mg INH RQ4 PRN PRN Reason: Shortness of Breath Last Admin: 11/25/17 04:04 Dose: 2.5 mg Albuterol/Ipratropium (Duoneb 3 Mg/0.5 Mg (3 Ml) Ud) 3 ml INH RQID [facility] Last Admin: 11/29/17 07:48 Dose: 3 ml Amlodipine Besylate (Norvasc) 5 mg PO DAILY [facility] Last Admin: 11/29/17 09:04 Dose: 5 mg Aspirin (Ecotrin) 81 mg PO DAILY [facility] Last Admin: 11/29/17 09:03 Dose: 81 mg Bisacodyl (Dulcolax) 5 mg PO DAILY PRN PRN Reason: Constipation Last Admin: 03/16/18 13:14 Dose: 5 mg Docusate Sodium (Colace) 100 mg PO BID [facility] Last Admin: 11/29/17 09:02 Dose: Not Given Enoxaparin Sodium (Lovenox) 40 mg SC DAILY [facility] PRN Reason: Protocol Last Admin: 11/29/17 09:03 Dose: 40 mg Ergocalciferol (Drisdol 50,000 Intl Units Cap) 1 cap PO FR [facility] Last Admin: 11/28/17 13:14 Dose: 1 cap Ferrous Sulfate (Feosol) 325 mg PO BID [facility] Last Admin: 11/29/17 09:03 Dose: 325 mg Hydroxyzine Pamoate (Vistaril) 25 mg PO BID PRN PRN Reason: Anxiety Metoprolol Succinate (Toprol Xl) 50 mg PO DAILY [facility] Last Admin: 11/29/17 09:05 Dose: 50 mg Paroxetine HCl (Paxil) 20 mg PO DAILY [facility] Last Admin: 11/29/17 09:05 Dose: 20 mg Potassium Chloride (K-Dur 20 Meq Er Tab) 20 meq PO DAILY [facility] Last Admin: 11/29/17 09:03 Dose: 20 meq Pravastatin Sodium (Pravachol) 20 mg PO HS [facility] Last Admin: 11/28/17 21:21 Dose: 20 mg - Labs Labs: 11/26/17 10:18 11/29/17 06:48 PT 13.1 Seconds (9.8-13.1) 11/24/17 05:15 INR 1.2 (0.9-1.2) 11/24/17 05:15 APTT 31.2 Seconds (25.6-37.1) 11/24/17 05:15 Assessment and Plan (1) Hypoxemia Status: Acute (2) Chest pain Status: Resolved (3) Chronic asthma Status: Chronic (4) Pleural effusion Status: Chronic
--- NOTE | 2017-11-29 17:20 | CP.PCM.PN ---
Subjective - Date & Time of Evaluation Date of Evaluation: 11/29/17 Time of Evaluation: 11:30 - Subjective Subjective: Patient is comfortable on a chair crocheting. Has no SOB Tolerated thoracentesis yesterday Objective - Vital Signs/Intake and Output Vital Signs (last 24 hours): Temp Pulse Resp BP Pulse Ox 97.6 F 67 20 111/45 L 93 L 11/29/17 16:29 11/29/17 16:29 11/29/17 16:29 11/29/17 16:29 11/29/17 16:29 - Medications Medications: Current Medications Acetaminophen (Tylenol 325mg Tab) 650 mg PO Q6 PRN PRN Reason: Headache Last Admin: 11/24/17 11:47 Dose: 650 mg Acetazolamide (Diamox 250 Mg Tab) 250 mg PO BID [facility] Last Admin: 11/29/17 16:10 Dose: 250 mg Albuterol Sulfate (Albuterol 0.083% Inhal Carmen (2.5 Mg/3 Ml) Ud) 2.5 mg INH RQ4 PRN PRN Reason: Shortness of Breath Last Admin: 11/25/17 04:04 Dose: 2.5 mg Albuterol/Ipratropium (Duoneb 3 Mg/0.5 Mg (3 Ml) Ud) 3 ml INH RQID [facility] Last Admin: 11/29/17 15:36 Dose: 3 ml Amlodipine Besylate (Norvasc) 5 mg PO DAILY [facility] Last Admin: 11/29/17 09:04 Dose: 5 mg Aspirin (Ecotrin) 81 mg PO DAILY [facility] Last Admin: 11/29/17 09:03 Dose: 81 mg Bisacodyl (Dulcolax) 5 mg PO DAILY PRN PRN Reason: Constipation Last Admin: 11/28/17 13:14 Dose: 5 mg Docusate Sodium (Colace) 100 mg PO BID [facility] Last Admin: 11/29/17 16:10 Dose: Not Given Enoxaparin Sodium (Lovenox) 40 mg SC DAILY [facility] PRN Reason: Protocol Last Admin: 11/29/17 09:03 Dose: 40 mg Ergocalciferol (Drisdol 50,000 Intl Units Cap) 1 cap PO FR [facility] Last Admin: 11/28/17 13:14 Dose: 1 cap Ferrous Sulfate (Feosol) 325 mg PO BID [facility] Last Admin: 11/29/17 16:10 Dose: 325 mg Hydroxyzine Pamoate (Vistaril) 25 mg PO BID PRN PRN Reason: Anxiety Metoprolol Succinate (Toprol Xl) 50 mg PO DAILY [facility] Last Admin: 11/29/17 09:05 Dose: 50 mg Paroxetine HCl (Paxil) 20 mg PO DAILY [facility] Last Admin: 11/29/17 09:05 Dose: 20 mg Potassium Chloride (K-Dur 20 Meq Er Tab) 20 meq PO DAILY [facility] Last Admin: 11/29/17 09:03 Dose: 20 meq Pravastatin Sodium (Pravachol) 20 mg PO HS [facility] Last Admin: 11/28/17 21:21 Dose: 20 mg - Labs Labs: 11/26/17 10:18 11/29/17 06:48 PT 13.1 Seconds (9.8-13.1) 11/24/17 05:15 INR 1.2 (0.9-1.2) 11/24/17 05:15 APTT 31.2 Seconds (25.6-37.1) 11/24/17 05:15 Assessment and Plan (1) Pleural effusion Status: Acute (2) CHF (congestive heart failure) Status: Acute (3) Altered mental status Status: Acute (4) Anxiety Status: Acute
[2017-11-29] MEDS: Pravastatin Sodium 20 MG TAB PO SCH (21:57)
[2017-11-30] MEDS: Albuterol-Ipratrop 3 mg / 0.5 (3 ml) UD INH SCH ×4 (07:51→19:15)
[2017-11-30] MEDS: Enoxaparin 40 mg Syringe SC SCH (08:46)
[2017-11-30] MEDS: Metoprolol Succinate 50 mg XL Tab PO SCH (08:46)
[2017-11-30] MEDS: Potassium Chloride 20 mEq ER Tab PO SCH (08:47)
[2017-11-30 08:52] LABS: BLOOD UREA NITROGEN 12 mg/dl (7-17); GFR AFRICAN-AMERICAN > 60; GFR NON-AFRICAN AMERICAN 60
--- NOTE | 2017-11-30 11:08 | RAD ---
HISTORY: pleural effusion COMPARISON: 11/24/2017 FINDINGS: LUNGS: There is mild interval improvement in aeration from the prior study with mild decreased congestion suspected. Bilateral effusions and subsegmental atelectasis at the lung bases are once again identified. PLEURA: Mild decrease in pleural effusions. CARDIOVASCULAR: Mild decreasing congestion. OSSEOUS STRUCTURES: No significant abnormalities. VISUALIZED UPPER ABDOMEN: Normal. OTHER FINDINGS: None. IMPRESSION: Overall mild decreasing congestion and effusions with mild improved aeration at the lung bases.
[2017-11-30] MEDS: Pravastatin Sodium 20 MG TAB PO SCH (22:07)
--- NOTE | 2017-11-30 22:35 | CP.PCM.PN ---
Subjective - Date & Time of Evaluation Date of Evaluation: 11/30/17 Time of Evaluation: 08:30 - Subjective Subjective: Patient is much more comfortable Has no SOB Has no cough Has no fever. Comfortable in bed. Objective - Vital Signs/Intake and Output Vital Signs (last 24 hours): Temp Pulse Resp BP Pulse Ox 98.8 F 71 20 121/68 97 11/30/17 19:25 11/30/17 20:54 11/30/17 19:25 11/30/17 19:25 11/30/17 19:25 - Medications Medications: Current Medications Acetaminophen (Tylenol 325mg Tab) 650 mg PO Q6 PRN PRN Reason: Headache Last Admin: 11/24/17 11:47 Dose: 650 mg Acetazolamide (Diamox 250 Mg Tab) 250 mg PO BID [facility] Last Admin: 11/30/17 17:55 Dose: 250 mg Albuterol Sulfate (Albuterol 0.083% Inhal Carmen (2.5 Mg/3 Ml) Ud) 2.5 mg INH RQ4 PRN PRN Reason: Shortness of Breath Last Admin: 11/25/17 04:04 Dose: 2.5 mg Albuterol/Ipratropium (Duoneb 3 Mg/0.5 Mg (3 Ml) Ud) 3 ml INH RQID [facility] Last Admin: 11/30/17 19:15 Dose: 3 ml Amlodipine Besylate (Norvasc) 5 mg PO DAILY [facility] Last Admin: 11/30/17 08:46 Dose: 5 mg Aspirin (Ecotrin) 81 mg PO DAILY [facility] Last Admin: 11/30/17 08:47 Dose: 81 mg Bisacodyl (Dulcolax) 5 mg PO DAILY PRN PRN Reason: Constipation Last Admin: 11/28/17 13:14 Dose: 5 mg Docusate Sodium (Colace) 100 mg PO BID [facility] Last Admin: 11/30/17 17:55 Dose: 100 mg Enoxaparin Sodium (Lovenox) 40 mg SC DAILY [facility] PRN Reason: Protocol Last Admin: 11/30/17 08:46 Dose: 40 mg Ergocalciferol (Drisdol 50,000 Intl Units Cap) 1 cap PO FR [facility] Last Admin: 11/28/17 13:14 Dose: 1 cap Ferrous Sulfate (Feosol) 325 mg PO BID [facility] Last Admin: 11/30/17 17:54 Dose: 325 mg Hydroxyzine Pamoate (Vistaril) 25 mg PO BID PRN PRN Reason: Anxiety Metoprolol Succinate (Toprol Xl) 50 mg PO DAILY [facility] Last Admin: 11/30/17 08:46 Dose: 50 mg Paroxetine HCl (Paxil) 20 mg PO DAILY [facility] Last Admin: 11/30/17 08:46 Dose: 20 mg Potassium Chloride (K-Dur 20 Meq Er Tab) 20 meq PO DAILY [facility] Last Admin: 11/30/17 08:47 Dose: 20 meq Pravastatin Sodium (Pravachol) 20 mg PO HS [facility] Last Admin: 11/30/17 22:07 Dose: 20 mg - Labs Labs: 11/26/17 10:18 11/30/17 07:50 PT 13.1 Seconds (9.8-13.1) 11/24/17 05:15 INR 1.2 (0.9-1.2) 11/24/17 05:15 APTT 31.2 Seconds (25.6-37.1) 11/24/17 05:15 Assessment and Plan (1) Pleural effusion Status: Acute (2) CHF (congestive heart failure) Status: Acute (3) Altered mental status Status: Acute (4) Anxiety Status: Acute
[2017-12-01] MEDS: Albuterol-Ipratrop 3 mg / 0.5 (3 ml) UD INH SCH ×3 (08:16→15:19)
[2017-12-01] MEDS: Enoxaparin 40 mg Syringe SC SCH (09:15)
[2017-12-01] MEDS: Potassium Chloride 20 mEq ER Tab PO SCH (09:15)
[2017-12-01] MEDS: Metoprolol Succinate 50 mg XL Tab PO SCH (09:16)
--- NOTE | 2017-12-01 10:00 | CP.PCM.PN ---
Subjective - Date & Time of Evaluation Date of Evaluation: 12/01/17 Time of Evaluation: 09:57 Objective - Vital Signs/Intake and Output Vital Signs (last 24 hours): Temp Pulse Resp BP Pulse Ox 99.1 F 64 14 121/48 L 99 12/01/17 08:00 12/01/17 09:16 12/01/17 08:16 12/01/17 09:16 12/01/17 08:00 - Medications Medications: Current Medications Acetaminophen (Tylenol 325mg Tab) 650 mg PO Q6 PRN PRN Reason: Headache Last Admin: 11/24/17 11:47 Dose: 650 mg Acetazolamide (Diamox 250 Mg Tab) 250 mg PO BID [facility] Last Admin: 12/01/17 09:15 Dose: 250 mg Albuterol Sulfate (Albuterol 0.083% Inhal Carmen (2.5 Mg/3 Ml) Ud) 2.5 mg INH RQ4 PRN PRN Reason: Shortness of Breath Last Admin: 11/25/17 04:04 Dose: 2.5 mg Albuterol/Ipratropium (Duoneb 3 Mg/0.5 Mg (3 Ml) Ud) 3 ml INH RQID [facility] Last Admin: 12/01/17 08:16 Dose: 3 ml Amlodipine Besylate (Norvasc) 5 mg PO DAILY [facility] Last Admin: 12/01/17 09:15 Dose: 5 mg Aspirin (Ecotrin) 81 mg PO DAILY [facility] Last Admin: 12/01/17 09:15 Dose: 81 mg Bisacodyl (Dulcolax) 5 mg PO DAILY PRN PRN Reason: Constipation Last Admin: 11/28/17 13:14 Dose: 5 mg Docusate Sodium (Colace) 100 mg PO BID [facility] Last Admin: 12/01/17 09:14 Dose: 100 mg Enoxaparin Sodium (Lovenox) 40 mg SC DAILY [facility] PRN Reason: Protocol Last Admin: 12/01/17 09:15 Dose: 40 mg Ergocalciferol (Drisdol 50,000 Intl Units Cap) 1 cap PO FR [facility] Last Admin: 11/28/17 13:14 Dose: 1 cap Ferrous Sulfate (Feosol) 325 mg PO BID [facility] Last Admin: 12/01/17 09:15 Dose: 325 mg Hydroxyzine Pamoate (Vistaril) 25 mg PO BID PRN PRN Reason: Anxiety Metoprolol Succinate (Toprol Xl) 50 mg PO DAILY [facility] Last Admin: 12/01/17 09:16 Dose: 50 mg Paroxetine HCl (Paxil) 20 mg PO DAILY [facility] Last Admin: 12/01/17 09:16 Dose: 20 mg Potassium Chloride (K-Dur 20 Meq Er Tab) 20 meq PO DAILY [facility] Last Admin: 12/01/17 09:15 Dose: 20 meq Pravastatin Sodium (Pravachol) 20 mg PO HS [facility] Last Admin: 11/30/17 22:07 Dose: 20 mg - Labs Labs: 11/26/17 10:18 11/30/17 07:50 PT 13.1 Seconds (9.8-13.1) 11/24/17 05:15 INR 1.2 (0.9-1.2) 11/24/17 05:15 APTT 31.2 Seconds (25.6-37.1) 11/24/17 05:15 Assessment and Plan (1) Hypoxemia Status: Chronic (2) Chest pain Status: Resolved (3) Chronic asthma Status: Chronic (4) Pleural effusion Status: Chronic - Assessment and Plan (Free Text) Plan: Reduced HFNC to 10 LPM & 28% O2. Thoracentesis done, CXR stable with residual fluid/atelectasis. No results of fluid analysis in record yet.
--- NOTE | 2017-12-01 10:25 | CP.PCM.PN ---
Subjective - Date & Time of Evaluation Date of Evaluation: 12/01/17 Time of Evaluation: 10:22 - Subjective Subjective: Seated up in bed, in no distress. HFNC reduced to 10 LPM and 28% O2. SpO2 remained at 92% on this setting. Breath sounds remain the same, diminished bilaterally w/o wheeze. Scattered rhonchi and medium rales in the lower lobes bilaterally. Plan to repeat labs in the AM. Will try standard nasal canula in AM. Objective - Vital Signs/Intake and Output Vital Signs (last 24 hours): Temp Pulse Resp BP Pulse Ox 99.1 F 64 14 121/48 L 99 12/01/17 08:00 12/01/17 09:16 12/01/17 08:16 12/01/17 09:16 12/01/17 08:00 - Medications Medications: Current Medications Acetaminophen (Tylenol 325mg Tab) 650 mg PO Q6 PRN PRN Reason: Headache Last Admin: 11/24/17 11:47 Dose: 650 mg Acetazolamide (Diamox 250 Mg Tab) 250 mg PO BID [facility] Last Admin: 12/01/17 09:15 Dose: 250 mg Albuterol Sulfate (Albuterol 0.083% Inhal Carmen (2.5 Mg/3 Ml) Ud) 2.5 mg INH RQ4 PRN PRN Reason: Shortness of Breath Last Admin: 11/25/17 04:04 Dose: 2.5 mg Albuterol/Ipratropium (Duoneb 3 Mg/0.5 Mg (3 Ml) Ud) 3 ml INH RQID [facility] Last Admin: 12/01/17 08:16 Dose: 3 ml Amlodipine Besylate (Norvasc) 5 mg PO DAILY [facility] Last Admin: 12/01/17 09:15 Dose: 5 mg Aspirin (Ecotrin) 81 mg PO DAILY [facility] Last Admin: 12/01/17 09:15 Dose: 81 mg Bisacodyl (Dulcolax) 5 mg PO DAILY PRN PRN Reason: Constipation Last Admin: 11/28/17 13:14 Dose: 5 mg Docusate Sodium (Colace) 100 mg PO BID [facility] Last Admin: 12/01/17 09:14 Dose: 100 mg Enoxaparin Sodium (Lovenox) 40 mg SC DAILY [facility] PRN Reason: Protocol Last Admin: 12/01/17 09:15 Dose: 40 mg Ergocalciferol (Drisdol 50,000 Intl Units Cap) 1 cap PO FR [facility] Last Admin: 11/28/17 13:14 Dose: 1 cap Ferrous Sulfate (Feosol) 325 mg PO BID [facility] Last Admin: 12/01/17 09:15 Dose: 325 mg Hydroxyzine Pamoate (Vistaril) 25 mg PO BID PRN PRN Reason: Anxiety Metoprolol Succinate (Toprol Xl) 50 mg PO DAILY [facility] Last Admin: 12/01/17 09:16 Dose: 50 mg Paroxetine HCl (Paxil) 20 mg PO DAILY [facility] Last Admin: 12/01/17 09:16 Dose: 20 mg Potassium Chloride (K-Dur 20 Meq Er Tab) 20 meq PO DAILY [facility] Last Admin: 12/01/17 09:15 Dose: 20 meq Pravastatin Sodium (Pravachol) 20 mg PO HS [facility] Last Admin: 11/30/17 22:07 Dose: 20 mg - Labs Labs: 11/26/17 10:18 11/30/17 07:50 PT 13.1 Seconds (9.8-13.1) 11/24/17 05:15 INR 1.2 (0.9-1.2) 11/24/17 05:15 APTT 31.2 Seconds (25.6-37.1) 11/24/17 05:15 Assessment and Plan (1) Hypoxemia Status: Chronic (2) Chest pain Status: Resolved (3) Chronic asthma Status: Chronic (4) Pleural effusion Status: Chronic
[2017-12-01 12:39] VITALS: RESP 20; O2SAT 100
[2017-12-01 15:38] VITALS: BP 125/66; PULSE 72; TEMP 98
== END 2017-12-01 15:45 | DRG 291 ==
LOC: H.ER 04:45 → H.ERHOLD 06:19 → H.TEL 09:13
PROVIDERS: ADMIT Family Medicine; ATTEND Family Medicine
PROC: 3E0F73Z Introduction of Anti-inflammatory into Respiratory Tract, Via Natural or Artificial Opening (ICD-10-PCS; 2017-11-24)
PROC: 0W993ZZ Drainage of Right Pleural Cavity, Percutaneous Approach (ICD-10-PCS; principal; 2017-11-28)
DX: I13.0 Hypertensive heart and chronic kidney disease with heart failure and stage 1 through stage 4 chronic kidney disease, or unspecified chronic kidney disease (principal); I50.31 Acute diastolic (congestive) heart failure; J90 Pleural effusion, not elsewhere classified; E87.3 Alkalosis; J45.41 Moderate persistent asthma with (acute) exacerbation; J98.11 Atelectasis; D63.8 Anemia in other chronic diseases classified elsewhere; N18.2 Chronic kidney disease, stage 2 (mild); R09.02 Hypoxemia; F03.90 Unspecified dementia, unspecified severity, without behavioral disturbance, psychotic disturbance, mood disturbance, and anxiety; I25.10 Atherosclerotic heart disease of native coronary artery without angina pectoris; M81.0 Age-related osteoporosis without current pathological fracture; E78.5 Hyperlipidemia, unspecified; E78.00 Pure hypercholesterolemia, unspecified; J44.9 Chronic obstructive pulmonary disease, unspecified; M19.90 Unspecified osteoarthritis, unspecified site; F41.9 Anxiety disorder, unspecified; Z79.82 Long term (current) use of aspirin; Z87.01 Personal history of pneumonia (recurrent)